=== PATIENT | female | born 1965 | race Caucasian/White ===

== ENCOUNTER → 2017-06-04 10:39 | Outpatient (CLI) | payer BC, OTHER, SELFPAY ==
--- NOTE | 2017-06-04 10:45 | MM_ITS ---
MM Dig screening mamm BI w/CAD CAD Screening COMPARISON: Digital mammograms 10/04/2014 and digital right mammogram 09/06/2015 INDICATION: There is no personal or family history of breast cancer TECHNIQUE: Standard CC and MLO images were obtained. R2 CAD reviewed. FINDINGS: Mild to moderate scattered fibroglandular densities are seen throughout both breasts and the findings are bilateral and symmetrical. There are few primarily benign-appearing microcalcifications subareolar region left breast. However there are couple additional microcalcifications at this site when compared to the previous study September 2014. Though they have primarily a benign appearance recommend patient return for spot compression magnification views for better evaluation. There are couple of additional benign appearing calcifications inner quadrant left breast. IMPRESSION: Fibrofatty parenchyma with possible change in microcalcifications left breast BI-RADS Category: 0 Need Additional Imaging Evaluaiton RECOMMENDED FOLLOW-UP: IMM - IMMEDIATE FOLLOW-UP RECOMMENDED (A letter has been sent to the patient regarding results of the study.)
== END ==
PROVIDERS: Family Provider Internal Medicine Adolescent Medicine; PCP Pediatrics; Visit Provider Pediatrics
DX: Z12.31 Encounter for screening mammogram for malignant neoplasm of breast (principal)
CPT/HCPCS: 77067

== ENCOUNTER → 2017-06-04 16:13 | Outpatient (CLI) | payer BC, OTHER, SELFPAY ==
--- NOTE | 2017-06-04 16:22 | XR_ITS ---
XR foot LT min 3V HISTORY: Foot pain ITS.REASON: WEIGHT BEARING FOR DR BEE ORDERING PHYSICIAN: Aure Bee DPM PATIENT AGE: 51 years COMPARISON: None FINDINGS: Weightbearing views are performed there is a fracture at the base of the second metatarsal with lucency at the base the second metatarsal and the distal aspect of the second cuneiform along with hypertrophic change and bony debris suspicious for developing Charcot joint. Lucency also noted base of the third metatarsal and third cuneiforms. Bony debris is present at the junction of the navicular and first cuneiforms dorsally. There is mild pes planus. IMPRESSION: Suspect developing Charcot joint at the second and third cuneiforms and metatarsals and at the navicular cuneiform joint. Fracture noted at the base of the second metatarsal with bony debris and lucencies at these areas.
--- NOTE | 2017-06-04 16:22 | XR_ITS ---
XR ankle LT min 3V HISTORY: Left ankle pain ITS.REASON: WEIGHT BEARING FOR DR BEE ORDERING PHYSICIAN: Aure Bee DPM PATIENT AGE: 51 years COMPARISON: None FINDINGS: Weightbearing views are performed No fracture or dislocation. No lytic or blastic change. There is normal mineralization.. The joint spaces are well-preserved. No significant degenerative/arthritic changes. No erosive changes evident. IMPRESSION: Negative ankle, no acute finding
--- NOTE | 2017-06-04 16:22 | XR_ITS ---
XR ankle RT min 3V HISTORY: Neuropathy, foot and ankle pain ITS.REASON: WEIGHT BEARING FOR DR BEE ORDERING PHYSICIAN: Aure Bee DPM PATIENT AGE: 51 years COMPARISON: None FINDINGS: Weightbearing views are performed No fracture or dislocation. No lytic or blastic change. There is normal mineralization.. The joint spaces are well-preserved. No significant degenerative/arthritic changes. No erosive changes evident. IMPRESSION: Negative ankle, no acute finding
--- NOTE | 2017-06-04 16:22 | XR_ITS ---
XR foot RT min 3V HISTORY: ] Pain ITS.REASON: WEIGHT BEARING FOR DR BEE ORDERING PHYSICIAN: Aure Bee DPM PATIENT AGE: 51 years COMPARISON: None FINDINGS: No fracture or dislocation. No lytic or blastic change. There is normal mineralization.. The joint spaces are well-preserved. No significant degenerative/arthritic changes. No erosive changes evident. IMPRESSION: Negative, no acute finding
== END ==
PROVIDERS: PCP Internal Medicine; Visit Provider Podiatrist
DX: M79.672 Pain in left foot (principal)
CPT/HCPCS: 73610; 73630

== ENCOUNTER → 2017-06-05 11:00 | Outpatient (CLI) | payer BC, OTHER, SELFPAY ==
--- NOTE | 2017-06-05 | US_ITS ---
US Arterial Ankle Brachial Ind INDICATION: Leg pain, bilateral rest pain with bilateral claudication. Left popliteal blockage. Previous smoker ORDERING PHYSICIAN: Aure Bee DPM PATIENT AGE: 51 years TECHNIQUE: Segmental pressures obtained of both right and left leg. These are compared to brachial blood pressure to yield index at each level sampled including summary GINGER. The data sheets from the procedure are available in PACS FINDINGS Rest study only performed today No prior studies available for comparison. Blood pressures reported are in millimeters mercury. RIGHT LEG GINGER = 0.9 Right TBI equals 0.9. Brachial BP: 133 Thigh BP: 148 Calf BP: 144 Ankle PT: 125 Ankle DP : 136 Digit =118 LEFT LEG GINGER = 1.1 Left TBI is 0.7 Brachial BPD: 133 Thigh BP: 151 Calf BP: 149 Ankle PT:144 Ankle DP: 126 Digit = 98 Pulses and waveforms: Normal IMPRESSION: The ABIs as reported above are within normal limits. Waveforms and pulses are also unremarkable. The right TBI is within normal limits. The left TBI is slightly low indicating mild small vessel disease
[2017-06-05 11:28] LABS: Basophils % 0.3 % (0.1-2.0); Eosinophils # 0.2 K/mm3 (0.0-0.4); Hematocrit 42.6 % (37.0-47.0); Hemoglobin 13.7 g/dL (12.2-16.2); Lymphocytes # 3.2 K/mm3 (0.7-4.5); Lymphocytes % 42.4 K/mm3 (10-50); Mean Corpuscular HGB Conc 32.3 g/dL (31.8-35.4); Mean Corpuscular Hemoglobin 29.6 pg (27.0-31.2); Mean Corpuscular Volume 91.6 fl (81-99); Monocytes # 0.5 K/mm3 (0.1-1.0); Monocytes % 5.9 % (1.7-9.3); Neutrophils # 3.7 K/mm3 (1.8-7.8); Neutrophils % 49.4 % (37.0-80.0); Platelet Count 248 K/mm3 (142-424); Red Blood Count 4.64 M/mm3 (4.20-5.40); Red Cell Distribution Width 13.7 % (11.5-17.5); White Blood Count 7.5 K/mm3 (4.8-10.8)
[2017-06-05 11:54] LABS: Activated Partial Thrombo Time 26.2 seconds (23.6-34.0); INR 0.93 (0.9-1.1)
--- NOTE | 2017-06-05 11:56 | XR_ITS ---
XR chest 2V HISTORY: ITS.REASON: ASTHMA ORDERING PHYSICIAN: Aure Bee DPM PATIENT AGE: 51 years COMPARISON: 04/23/2016 FINDINGS: The cardiomediastinal silhouette and pulmonary vascularity are within normal limits. The lungs are clear without infiltrates, suspicious nodules, or pleural effusions. No acute bony abnormalities. IMPRESSION: No change with no acute finding
[2017-06-05 13:09] LABS: Alanine Aminotransferase 23 U/L (12-78); Albumin Level 3.1 gm/dL (3.4-5.0); Albumin/Globulin Ratio 0.8 (1.1-1.8); Alkaline Phosphatase 91 U/L (46-116); Anion Gap 11.7 mEq/L (5-15); Aspartate Amino Transferase 35 U/L (15-37); Bilirubin,Total 0.4 mg/dL (0.2-1.0); Blood Urea Nitrogen 13 mg/dL (7-18); Calcium 8.6 mg/dL (8.5-10.1); Carbon Dioxide 29 mmol/L (21.0-32.0); Chloride 102 mmol/L (98-107); Creatinine,Serum 0.87 mg/dL (0.55-1.02); Estimated Glomerular Filt Rate 69 ml/min (>60); GFR (African American) 83 ML/MIN (>60); Globulin 3.8 gm/dl (1.3-3.2); Glucose 102 mg/dL (74-106); Potassium 4.7 mmoL/L (3.5-5.1); Sodium 138 mmol/L (136-145); Total Protein,Serum 6.9 gm/dL (6.4-8.2)
== END ==
PROVIDERS: PCP Pediatrics; Visit Provider Podiatrist
DX: M14.672 Charcot's joint, left ankle and foot (principal); M79.672 Pain in left foot; Z01.818 Encounter for other preprocedural examination
CPT/HCPCS: 36415; 71046; 80053; 85025; 85610; 85730; 93005; 93922

== ENCOUNTER → 2017-06-11 14:27 | Outpatient (CLI) | payer BC, OTHER, SELFPAY ==
--- NOTE | 2017-06-11 14:31 | MM_ITS ---
MM Dig mamm DX unilat LT CAD ORDERING PHYSICIAN : Evangelist Tabares PATIENT AGE: 51 years GENDER: Female COMPARISON: Previous mammograms: 20 INDICATION: Progression of calcifications including additional small calcifications TECHNIQUE: Magnification views CC and MLO with a full 90 degree view left breast included LEFT BREAST: Slight progression of the cluster calcifications at the central left breast. The more inferior calcifications in this grouping are dense most certainly benign; but but the distal new small calcifications superior calcifications in this grouping are less well delineated with slightly irregular with some small forms here, on detailed inspection of enlarged magnification views.. Overall suspect are most likely benign calcifications with estimated less than 3-5% chance of malignancy, but I would suggest offering biopsy due to the new small calcifications at its superior aspect... A reasonable alternative would be follow-up left mammogram in 6-8 months if patient prefers observation. Remainder the left breast appears stable and unremarkable. No additional findings. ------- IMPRESSION: Stereotactic biopsy suggested. However reasonable alternative option follow-up in 6 months since these are most likely benign calcification . Slight progression of a cluster of calcifications central left breast. Specifically note additional small calcifications with slight varied forms at superior aspect of this grouping. BI-RADS Category: 4 Suspicious Abnormality-Biopsy Considered Low suspicion calcification BI-RADS 4A category RECOMMENDED FOLLOW-UP: BIO - BIOPSY RECOMMENDED Suggest stereotactic biopsy but follow-up in 6 months is reasonable alternative for these most likely benign calcifications (A letter has been sent to the patient regarding results of the study.)
== END ==
PROVIDERS: Family Provider Internal Medicine Adolescent Medicine; PCP Pediatrics; Visit Provider Internal Medicine
DX: R92.8 Other abnormal and inconclusive findings on diagnostic imaging of breast (principal)
CPT/HCPCS: 77065

== ENCOUNTER 2017-06-12 06:07 | Day surgery (SDC) | payer BC, OTHER, SELFPAY ==
[2017-06-11 10:24] VITALS: BMI 32.4
[2017-06-12] VITALS (12 sets, daily range): BP systolic 132–167; BP diastolic 72–95; PULSE 88–92; RESP 16–18; TEMP 36.5–43; O2SAT 90–96
--- NOTE | 2017-06-12 | XR_ITS ---
XR ankle LT 2V HISTORY: Follow-up surgery ITS.REASON: EXTERNAL FIX ORDERING PHYSICIAN: Aure Bee DPM PATIENT AGE: 51 years COMPARISON: None Fluoroscopy time: 26 seconds FINDINGS: External fixator device has been placed with C-arm guidance. IMPRESSION: Interval placement of external fixator.
--- NOTE | 2017-06-12 06:54 | HMH.ANESCL ---
[facility] Anesthesia Checklist - Patient Identification Patient Identification: Arm Band, Verbal (Name & ) - Structural Data Admitted From: Home Planned Operative Procedure/s: external fixator Consent for Planned Operative Procedure(s) Verified: Yes Verified Documents: Surgical Consent, History and Physical - NPO Status Verified Time NPO: 00:00 - Chart Verification Results Verified: CBC, BMP, PT, PTT, INR, ECG - Additional verifications Patient : No Anesthesia Reactions: No Hx Blood Transfusions: No Blood Transfusion Reaction: No Cephalosporin Allergy: No Previous Colonoscopy: No - Cardiovascular Assessment Heart Sounds: S1 & S2 Pulse Strength: Baseline Pulse Rhythm: Regular Peripheral Edema: No - Airway Assessment C-Spine Mobility Assessed: No TMJ Mobility Assessed: No Dentition: Good Dentition - Neurological Assessment Level of Consciousness: Awake, Alert, Appropriate Hx Seizures: No Numbness or tingling in extremities: No - Anesthesia Plan Anesthesia Risk discussed: Yes ASA Class: III Anesthesia Type: General [facility] Anesthesia HX I have reviewed the patient's past medical history: Yes Medical History: Reports:: Asthma, Diabetes Mellitus Type 2, Gastroesophageal Reflux Disease(GERD), Hyperlipidemia, Hypertension, Migraine Denies:: Cancer, Diabetes Mellitus Type 1, Internal Pacemaker, MRSA, Myocardial Infarction Laterality Cases: Bilateral: Carpal Tunnel Release, Other Other Surgeries: Yes: , Hysterectomy-Total, Other (gallbladder, eye surgery). No: Pacemaker Amputation: No Fractures: Yes *Family Hx:: Cancer, Diabetes, Heart Attack, Hypertension, Asthma
--- NOTE | 2017-06-12 06:57 | P.PN_ITS ---
[facility] Anesthesia Checklist - Patient Identification Patient Identification: Arm Band, Verbal (Name & ) - Structural Data Admitted From: Home Planned Operative Procedure/s: external fixator Consent for Planned Operative Procedure(s) Verified: Yes Verified Documents: Surgical Consent, History and Physical - NPO Status Verified Time NPO: 00:00 - Chart Verification Results Verified: CBC, BMP, PT, PTT, INR, ECG - Additional verifications Patient : No Anesthesia Reactions: No Hx Blood Transfusions: No Blood Transfusion Reaction: No Cephalosporin Allergy: No Previous Colonoscopy: No - Cardiovascular Assessment Heart Sounds: S1 & S2 Pulse Strength: Baseline Pulse Rhythm: Regular Peripheral Edema: No - Airway Assessment C-Spine Mobility Assessed: No TMJ Mobility Assessed: No Dentition: Good Dentition - Neurological Assessment Level of Consciousness: Awake, Alert, Appropriate Hx Seizures: No Numbness or tingling in extremities: No - Anesthesia Plan Anesthesia Risk discussed: Yes ASA Class: III Anesthesia Type: General [facility] Anesthesia HX I have reviewed the patient's past medical history: Yes Medical History: Reports:: Asthma, Diabetes Mellitus Type 2, Gastroesophageal Reflux Disease(GERD), Hyperlipidemia, Hypertension, Migraine Denies:: Cancer, Diabetes Mellitus Type 1, Internal Pacemaker, MRSA, Myocardial Infarction Laterality Cases: Bilateral: Carpal Tunnel Release, Other Other Surgeries: Yes: , Hysterectomy-Total, Other (gallbladder, eye surgery). No: Pacemaker Amputation: No Fractures: Yes *Family Hx:: Cancer, Diabetes, Heart Attack, Hypertension, Asthma
[2017-06-12 07:03] LABS: POC Glucose,Bedside 86 mg/dL (70-110)
--- NOTE | 2017-06-12 10:38 | XR_ITS ---
XR ankle LT min 3V HISTORY: Postop Charcot foot ITS.REASON: post-op ORDERING PHYSICIAN: Aure Bee DPM PATIENT AGE: 51 years COMPARISON: 06/04/2017 FINDINGS: Lateral fixator has been placed across seen stabilizing wires at the junction of the mid-distal third of the tibia and fibula and the distal aspect of the tibia as well as the mid foot region. There is good alignment. IMPRESSION: Interval placement of external fixator
--- NOTE | 2017-06-12 10:38 | P.PN_ITS ---
[facility] Anesthesia Record Part I Intake, IV Amount: 1,500 Estimated blood loss (mL): 10 Urine output (mL): 0 Blood Pressure: 160/86 SaO2: 95 Pulse Rate: 92 Respiratory Rate: 16 Temperature: 98.2 F Patient is:: Drowsy, Stable Stable to PACU at:: 10:35
--- NOTE | 2017-06-12 10:38 | XR_ITS ---
XR foot LT min 3V HISTORY: Follow-up surgery, follow-up external fixator placement ITS.REASON: post-op ORDERING PHYSICIAN: Aure Bee DPM PATIENT AGE: 51 years COMPARISON: 06/04/2017 FINDINGS: There is been interval placement of an external fixator with crossing wires are within the metatarsals and at the distal tibia stabilizing the Charcot joint at the first and second metatarsal cuneiform junction. There does appear to be good alignment. IMPRESSION: Interval placement of external fixator in good position
--- NOTE | 2017-06-12 10:38 | HMH.ANESII ---
[facility] Anesthesia Record Part II Discharge Time: 11:05 Destination: [facility] PACU nurse assessment reviewed?: Yes Patient Condition:: Good Anesthesia Complications:: None
--- NOTE | 2017-06-12 10:39 | P.PN_ITS ---
[facility] Anesthesia Record Part II Discharge Time: 11:05 Destination: [facility] PACU nurse assessment reviewed?: Yes Patient Condition:: Good Anesthesia Complications:: None
--- NOTE | 2017-06-12 10:52 | PC.NURSE ---
[id number] post operatively
--- NOTE | 2017-06-12 11:00 | HMH.OPNOTE ---
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 Guallpa is a pleasant 51-year-old diabetic female who presents today for evaluation of left foot pain and swelling. She notices swelling about 5 weeks ago. Patient states that she was concerned because she usually has no feeling to the feet. After several days of swelling she saw her PCP Dr. Tabares. X-rays were taken of the left foot on 05/09/17 which showed lateral subluxation of the second metatarsal base with respect to the medial cuneiform. There is approximately 3 mm of subluxation. A Lisfranc injury is not excluded. There is bony destruction and fragmentation of the second metatarsal base and involving multiple tarsal metatarsal joints.These findings could be posttraumatic but a neuropathic or Charcot joint cannot be excluded. The patient has been fully weightbearing in a regular shoe. She has not been immobilized or nonweightbearing at all. 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 Patient does not have diabetic shoes. She does report history of tingling burning and numbness to both feet. She denies a history of open wounds and reports no prior amputations. Last HA1c 12.0 X-rays of both feet and ankle taken 06/04/17 and compared with the x-rays of the left foot brought from the patient from 05/09/17. X-rays taken today show normal ankle joints bilaterally with no fractures or significant soft tissue swelling. X-rays of the right foot show no significant deformities. X-ray of the left foot shows fracturing of the base of the second metatarsal with lucency at the base of the second metatarsal and second cuneiform along with hypertrophic changes and bony debris suspicious for Charcot joint. Since he also noted at the base of the third metatarsal and third cuneiform. Bony debris is present at the junction of the navicular and first cuneiform dorsally. There is pes planus also noted. Left foot Charcot Neuroarthropathy: I had a long discussion with the patient about the etiology and treatment of Charcot foot. I explained how her diabetes and peripheral neuropathy have contributed to this. We also had a long discussion about her hemoglobin A1c of 12 and her poor sugar control. Her previous A1c was 9.0. I explained that it is imperative that she gets her sugar back down, with a goal of 7.0. Patient does not currently smoke. She does have visual changes. We discussed the progression of Charcot and how that puts her at high risk for medial arch collapse, foot deformities, ulceration, infection leading to amputation, loss of digits, part of the foot or even the leg. She verbalizes understanding. The patient and I had a long discussion about her treatment course. We discussed the conservative treatment option of strict nonweightbearing to the left lower extremity and in a cast. The nonweightbearing may be 8-12 weeks. The patient admits that she cannot be compliant with this treatment plan and that she would put weight on it. We did discuss surgical intervention with the application of an external fixator. I told the patient that I would not recommend Charcot reconstruction at this point because the Lisfranc region is unstable. I can palpate and when moving the joints, can hear the bones crunching. When she is weightbearing the bones are shifting. I explained that internal fixation at this point is not a good idea because it could still result in further collapse of the deformity. My recommendation would be strict nonweightbearing but the patient cannot be compliant with this. She has agreed to be nonweightbearing for s
--- NOTE | 2017-06-12 11:04 | P.OP_ITS ---
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 Guallpa is a pleasant 51-year-old diabetic female who presents today for evaluation of left foot pain and swelling. She notices swelling about 5 weeks ago. Patient states that she was concerned because she usually has no feeling to the feet. After several days of swelling she saw her PCP Dr. Tabares. X-rays were taken of the left foot on 05/09/17 which showed lateral subluxation of the second metatarsal base with respect to the medial cuneiform. There is approximately 3 mm of subluxation. A Lisfranc injury is not excluded. There is bony destruction and fragmentation of the second metatarsal base and involving multiple tarsal metatarsal joints.These findings could be posttraumatic but a neuropathic or Charcot joint cannot be excluded. The patient has been fully weightbearing in a regular shoe. She has not been immobilized or nonweightbearing at all. 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 She does report history of tingling burning and numbness to both feet. She denies a history of open wounds and reports no prior amputations. Last HA1c 12.0 X-rays of both feet and ankle taken 06/04/17 and compared with the x-rays of the left foot brought from the patient from 05/09/17. X-rays taken today show normal ankle joints bilaterally with no fractures or significant soft tissue swelling. X-rays of the right foot show no significant deformities. X-ray of the left foot shows fracturing of the base of the second metatarsal with lucency at the base of the second metatarsal and second cuneiform along with hypertrophic changes and bony debris suspicious for Charcot joint. Since he also noted at the base of the third metatarsal and third cuneiform. Bony debris is present at the junction of the navicular and first cuneiform dorsally. There is pes planus also noted. Left foot Charcot Neuroarthropathy: I had a long discussion with the patient about the etiology and treatment of Charcot foot. I explained how her diabetes and peripheral neuropathy have contributed to this. We also had a long discussion about her hemoglobin A1c of 12 and her poor sugar control. Her previous A1c was 9.0. I explained that it is imperative that she gets her sugar back down, with a goal of 7.0. Patient does not currently smoke. She does have visual changes. We discussed the progression of Charcot and how that puts her at high risk for medial arch collapse, foot deformities, ulceration, infection leading to amputation, loss of digits, part of the foot or even the leg. She verbalizes understanding. The patient and I had a long discussion about her treatment course. We discussed the conservative treatment option of strict nonweightbearing to the left lower extremity and in a cast. The nonweightbearing may be 8-12 weeks. The patient admits that she cannot be compliant with this treatment plan and that she would put weight on it. We did discuss surgical intervention with the application of an external fixator. I told the patient that I would not recommend Charcot reconstruction at this point because the Lisfranc region is unstable. I can palpate and when moving the joints, can hear the bones crunching. When she is weightbearing the bones are shifting. I explained that internal fixation at th
[2017-06-20 15:02] LABS: POC Glucose,Bedside 124 mg/dL (70-110)
== END 2017-06-12 12:03 | disposition home or self-care (01) ==
LOC: OR 06:08
PROVIDERS: Family Provider Internal Medicine Adolescent Medicine; PCP Pediatrics; Visit Provider Podiatrist
PROC: (CPT 28605; principal; 2017-06-12 07:30)
DX: E11.610 Type 2 diabetes mellitus with diabetic neuropathic arthropathy (principal); S93.325A Dislocation of tarsometatarsal joint of left foot, initial encounter
CPT/HCPCS: 28605; 20692; 71046; 73600; 73610; 73630; 76000; 82962; 93005; 96374; C1713; J2405

== ENCOUNTER → 2017-06-25 14:38 | Outpatient (CLI) | payer BC, OTHER, SELFPAY ==
--- NOTE | 2017-06-25 14:46 | XR_ITS ---
XR foot LT min 3V HISTORY: Charcot foot, follow-up external fixator placement ORDERING PHYSICIAN: Aure Bee DPM PATIENT AGE: 51 years COMPARISON: 06/12/2017 FINDINGS: External fixator remains in place obscuring much of the foot and ankle with crossing wires which are within the metatarsals and at the distal tibia stabilizing the Charcot joint at the first and second metatarsal cuneiform junction. There does appear to be good alignment.. Postsurgical change with irregularity of the dorsal aspect of the cuneiforms noted as before. IMPRESSION: No change status post placement of external fixator
--- NOTE | 2017-06-25 14:46 | XR_ITS ---
XR ankle LT min 3V HISTORY: Follow-up external fixator placement ORDERING PHYSICIAN: Aure Bee DPM PATIENT AGE: 51 years COMPARISON: 07/10/2017 FINDINGS: External fixator which encircles the mid distal tibia and foot with multiple loops neck the by rods with pins in the distal tibia and foot once again noted unchanged with good alignment. IMPRESSION: No change external fixator in place
== END ==
PROVIDERS: Visit Provider Podiatrist
DX: Z98.890 Other specified postprocedural states (principal)
CPT/HCPCS: 73610; 73630

== ENCOUNTER 2017-06-30 14:11 | Emergency (ER) | payer BC, OTHER, SELFPAY ==
[2017-06-30 14:25] VITALS: BP 154/98; PULSE 94; RESP 18; TEMP 36.8; O2SAT 97; BMI 32.4
--- NOTE | 2017-06-30 14:42 | [facility].EDGENADL ---
ED Disposition Clinical Impression: Charcot gait, Charcot ankle, Postop check Disposition: Home, Self-Care Condition on Discharge: Fair Additional Instructions: 1- rest. 2- elevate. 3- continue abx. 4- temp and neurovascular check bid. 5- follow up with lab results with Dr Davenport in AM, need to discuss if more testing needed to exclude osteomyelitis. . 6- return if needed for any new sx. Referrals: Juan Tabares [Primary Care Provider] - - Critical Care Critical Care Time: No Attestation: On 06/30/17, the high probability of a clinically significant, sudden or life threatening deterioration of the following system(s) required my full and direct attention, intervention and personal management. The time I documented below is in addition to time spent performing reported procedures but includes the following listed in this critical care notation. Medical Decision Making Vital Signs: 06/30/17 14:25 Temperature 98.3 F Temperature Source Oral Pulse Rate [Right Brachial] 94 H Respiratory Rate 18 Blood Pressure [Right Arm] 154/98 Blood Pressure Mean [Right Arm] 116 Blood Pressure Source [Right Arm] Automatic Cuff Blood Pressure Position [Right Arm] Sitting 02 Sat by Pulse Oximetry 97 Oxygen Delivery Method Room Air - Lab Data Lab results reviewed: Yes: I reviewed the patient's lab results. Lab Results 06/30/17 15:00: WBC 7.4, RBC 4.04 L, Hgb 12.0 L, Hct 37.3, MCV 92.4, MCH 29.7, MCHC 32.2, RDW 12.7, Plt Count 246, MPV 9.0, Neut % (Auto) 51.3, Lymph % (Auto) 40.0, [place] % (Auto) 4.5, Eos % (Auto) 3.9, Baso % (Auto) 0.3, Neut # (Auto) 3.8, Lymph # (Auto) 3.0, [place] # (Auto) 0.3, Eos # (Auto) 0.3, Baso # (Auto) 0.0, ESR 64 H 06/30/17 15:00: Sodium 136, Potassium 4.1, Chloride 103, Carbon Dioxide 26, Anion Gap 11.1, BUN 16, Creatinine 1.09 H, Estimated Creat Clear 86, Estimated GFR 53 L, Est GFR ( Amer) 64, Glucose 101, C-Reactive Protein 5.1 H Result diagrams: 06/30/17 15:00 06/30/17 15:00 - Panchito Inquiry Pt receiving controlled substance: No Panchito was queried for this patient: No Medical Decision Making Narrative: The patient remained stable with no additional pain or fever. As described in HPI her pain is decreasing since she started on Bactrim. the patient did have normal labs except for sed rate of 61 and a CRP of 5.1 I checked for old levels that was not available in the system. Attempted to call Dr. 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 I discussed these results with the patient and I informed her at this point it is meant for follow-up purposes and she will need follow-up with Dr. Davenport and repeat as needed for improvement. General Adult HPI - General Chief complaint: PAIN Stated complaint: Pins infected in Leg - Calf to Toes Mode of Arrival: Wheelchair Limitations: No Limitations Description of Symptoms (Recalled from ER Triage Doc. by RN): ADVISES SHE HAD SURGERY ON THE FOR MULTIPLE BROKEN BONES IN THE LT FOOT. SURGERY PERFORMED BY DR DAVENPORT. PT STATES SHE SAW DR DAVENPORT ON OR SAT OF LAST WEEK D/T INCREASED PAIN AT ONE OF THE PIN SITES. PT IS CONCERNED ABOUT POSSIBLE INFECTION OF THE SITE - History of Present Illness HPI narrative: 51 years old white female with long-standing history of diabetes mellitus and complications including Charcot foot. She underwent foot surgery by Dr. Davenport on June 12, 2017. Was last seen by the dielectric tester on June 27 where she had one out of 16 pin seem to be infected, she did have pain that was rated 8/10, she did have an x ray by Dr davenport and started on Bactrim. Today her pain is les 3/10 but her Over The Road Driver looked at the pins and he noted 2 more areas of redness (3/16 pins) and she attempted to call her dielectric tester with no response so she was brought to the ED. she denies having fever or chills nausea vomiting red streaks along the leg. She is in no cardiopulmonary distress, sitting in the bed comfortably using her Phone. Onset (ago): darren
--- NOTE | 2017-06-30 14:45 | ED_ITS ---
ED Disposition Clinical Impression: Charcot gait, Charcot ankle, Postop check Disposition: Home, Self-Care Condition on Discharge: Fair Additional Instructions: 1- rest. 2- elevate. 3- continue abx. 4- temp and neurovascular check bid. 5- follow up with lab results with Dr Davenport in AM, need to discuss if more testing needed to exclude osteomyelitis. . 6- return if needed for any new sx. Referrals: Juan Tabares [Primary Care Provider] - - Critical Care Critical Care Time: No Attestation: On 06/30/17, the high probability of a clinically significant, sudden or life threatening deterioration of the following system(s) required my full and direct attention, intervention and personal management. The time I documented below is in addition to time spent performing reported procedures but includes the following listed in this critical care notation. Medical Decision Making Vital Signs: 06/30/17 14:25 Temperature 98.3 F Temperature Source Oral Pulse Rate [Right Brachial] 94 H Respiratory Rate 18 Blood Pressure [Right Arm] 154/98 Blood Pressure Mean [Right Arm] 116 Blood Pressure Source [Right Arm] Automatic Cuff Blood Pressure Position [Right Arm] Sitting 02 Sat by Pulse Oximetry 97 Oxygen Delivery Method Room Air - Lab Data Lab results reviewed: Yes: I reviewed the patient's lab results. Lab Results 06/30/17 15:00: WBC 7.4, RBC 4.04 L, Hgb 12.0 L, Hct 37.3, MCV 92.4, MCH 29.7, MCHC 32.2, RDW 12.7, Plt Count 246, MPV 9.0, Neut % (Auto) 51.3, Lymph % (Auto) 40.0, [place] % (Auto) 4.5, Eos % (Auto) 3.9, Baso % (Auto) 0.3, Neut # (Auto) 3.8 , Lymph # (Auto) 3.0, [place] # (Auto) 0.3, Eos # (Auto) 0.3, Baso # (Auto) 0.0, ESR 64 H 06/30/17 15:00: Sodium 136, Potassium 4.1, Chloride 103, Carbon Dioxide 26, Anion Gap 11.1, BUN 16, Creatinine 1.09 H, Estimated Creat Clear 86, Estimated GFR 53 L, Est GFR ( Amer) 64, Glucose 101, C-Reactive Protein 5.1 H Result diagrams: 06/30/17 15:00 06/30/17 15:00 - Panchito Inquiry Pt receiving controlled substance: No Panchito was queried for this patient: No Medical Decision Making Narrative: The patient remained stable with no additional pain or fever. As described in HPI her pain is decreasing since she started on Bactrim. the patient did have normal labs except for sed rate of 61 and a CRP of 5.1 I checked for old levels that was not available in the system. Attempted to call Dr. 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 I discussed these results with the patient and I informed her at this point it is meant for follow-up purposes and she will need follow-up with Dr. Davenport and repeat as needed for improvement. General Adult HPI - General Chief complaint: PAIN Stated complaint: Pins infected in Leg - Calf to Toes Mode of Arrival: Wheelchair Limitations: No Limitations Description of Symptoms (Recalled from ER Triage Doc. by RN): ADVISES SHE HAD SURGERY ON THE FOR MULTIPLE BROKEN BONES IN THE LT FOOT. SURGERY PERFORMED BY DR DAVENPORT. PT STATES SHE SAW DR DAVENPORT ON OR SAT OF LAST WEEK D/T INCREASED PAIN AT ONE OF THE PIN SITES. PT IS CONCERNED ABOUT POSSIBLE INFECTION OF THE SITE - History of Present Illness HPI narrative: 51 years old white female with long-standing history of diabetes mellitus and complications including Charcot foot. She underwent foot surgery by Dr. Davenport on June 12, 2017. Was last seen by the medical art therapist on June 27 where she had one out of
[2017-06-30 15:13] LABS: Basophils % 0.3 % (0.1-2.0); Eosinophils # 0.3 K/mm3 (0.0-0.4); Eosinophils % 3.9 % (0.1-12.0); Hematocrit 37.3 % (37.0-47.0); Mean Corpuscular HGB Conc 32.2 g/dL (31.8-35.4); Mean Corpuscular Hemoglobin 29.7 pg (27.0-31.2); Mean Corpuscular Volume 92.4 fl (81-99); Monocytes # 0.3 K/mm3 (0.1-1.0); Monocytes % 4.5 % (1.7-9.3); Neutrophils # 3.8 K/mm3 (1.8-7.8); Neutrophils % 51.3 % (37.0-80.0); Platelet Count 246 K/mm3 (142-424); Red Blood Count 4.04 M/mm3 (4.20-5.40); Red Cell Distribution Width 12.7 % (11.5-17.5); White Blood Count 7.4 K/mm3 (4.8-10.8)
[2017-06-30 15:31] LABS: Anion Gap 11.1 mEq/L (5-15); Blood Urea Nitrogen 16 mg/dL (7-18); C-Reactive Protein 5.1 mg/L (0.0-0.9); Carbon Dioxide 26 mmol/L (21.0-32.0); Chloride 103 mmol/L (98-107); Creatinine Clearance Estimated 86 mL/min (0-300); Creatinine,Serum 1.09 mg/dL (0.55-1.02); Estimated Glomerular Filt Rate 53 ml/min (>60); GFR (African American) 64 ML/MIN (>60); Glucose 101 mg/dL (74-106); Potassium 4.1 mmoL/L (3.5-5.1); Sodium 136 mmol/L (136-145)
[2017-06-30 16:00] LABS: Erythrocyte Sedimentation Rate 64 mm/hr (0-20)
[2017-06-30 17:19] VITALS: BP 134/92; PULSE 88; RESP 16; TEMP 36.6; O2SAT 97
== END 2017-06-30 17:21 | disposition home or self-care (01) ==
PROVIDERS: Emergency Provider Emergency Medicine; Family Provider Internal Medicine Adolescent Medicine; PCP Pediatrics
DX: G89.18 Other acute postprocedural pain (principal); M14.672 Charcot's joint, left ankle and foot; E10.9 Type 1 diabetes mellitus without complications; Z79.4 Long term (current) use of insulin; K21.9 Gastro-esophageal reflux disease without esophagitis; E78.5 Hyperlipidemia, unspecified; I10 Essential (primary) hypertension; Z87.891 Personal history of nicotine dependence; Z88.6 Allergy status to analgesic agent; Z88.8 Allergy status to other drugs, medicaments and biological substances
CPT/HCPCS: 36415; 80048; 85025; 85651; 86140; 99281

== ENCOUNTER → 2017-07-02 16:00 | Outpatient (REF) | payer BC, OTHER, SELFPAY | LOC: LAB 16:00 | PROVIDERS: Visit Provider Podiatrist | DX: T84.60XA Infection and inflammatory reaction due to internal fixation device of unspecified site, initial encounter (principal) | CPT/HCPCS: 87070; 87205 ==

== ENCOUNTER → 2017-07-16 13:37 | Outpatient (CLI) | payer BC, OTHER, SELFPAY ==
[2017-07-16 14:38] LABS: Hemoglobin A1C 7.7 % (0.0-7.0)
[2017-07-16 14:43] LABS: C-Reactive Protein 0.3 mg/L (0.0-0.9)
[2017-07-16 14:56] LABS: Erythrocyte Sedimentation Rate 29 mm/hr (0-20)
[2017-07-17 15:48] LABS: Vitamin D 25 Hydroxy 31.7 ng/mL (30.0-100.0)
== END ==
PROVIDERS: PCP Podiatrist; Visit Provider Podiatrist
DX: Z01.818 Encounter for other preprocedural examination (principal); E11.610 Type 2 diabetes mellitus with diabetic neuropathic arthropathy
CPT/HCPCS: 36415; 82652; 83036; 85651; 86140

== ENCOUNTER → 2017-07-30 08:58 | Outpatient (CLI) | payer BC, OTHER, SELFPAY ==
--- NOTE | 2017-07-30 08:58 | XR_ITS ---
Left foot Weightbearing Foot 3 Views HISTORY: Follow-up surgery ORDERING PHYSICIAN: Aure Bee DPM PATIENT AGE: 51 years COMPARISON: 07/17/2017 FINDINGS: The catheter is been removed. Weightbearing views are performed. A medial bone plate with multiple screws once again noted along the proximal aspect of the first metatarsal, medial cuneiform, navicular, and distal talus. There remains a long screw extending through the first metatarsal into the navicular and distal talus. A long screw is also noted within the fourth metatarsal into the cuboid. Tracks are present in the third and second metatarsals from previous fixation device. IMPRESSION: Overall no change with good alignment and extensive postsurgical changes of the foot as described above.
== END ==
PROVIDERS: Visit Provider Podiatrist
DX: Z98.890 Other specified postprocedural states (principal); E11.610 Type 2 diabetes mellitus with diabetic neuropathic arthropathy
CPT/HCPCS: 73630

== ENCOUNTER → 2017-08-13 11:32 | Outpatient (CLI) | payer BC, OTHER, SELFPAY ==
--- NOTE | 2017-08-13 11:33 | XR_ITS ---
XR foot wt bearing LT 3V HISTORY: Follow-up fusion ORDERING PHYSICIAN: Aure Bee DPM PATIENT AGE: 51 years COMPARISON: 07/30/2017 FINDINGS: Weightbearing views are performed. A medial bone plate with multiple screws once again noted along the proximal aspect of the first metatarsal, medial cuneiform, navicular, and distal talus. There remains a long screw extending through the first metatarsal into the navicular and distal talus. A long screw is also noted within the fourth metatarsal into the cuboid. Tracks are present in the third and second metatarsals from previous fixation device. IMPRESSION: Overall no change with good alignment and extensive postsurgical changes of the foot as described above.
== END ==
PROVIDERS: Visit Provider Podiatrist
DX: Z98.890 Other specified postprocedural states (principal)
CPT/HCPCS: 73630

== ENCOUNTER 2017-08-18 21:45 | Inpatient (IN) ==
[2017-08-18 22:09] LABS: Microscopic, Urine URINE MICROSCOPIC (MICROSCOPIC)
[2017-08-18 22:11] LABS: Appearance,Urine CLEAR (Clear); Bilirubin,Urine Negative (Negative); Blood, Urine 1+ (Negative); Color,Urine YELLOW (Yellow); Glucose,Urine (UA) 3+ (Negative); Ketones,Urine Negative (Negative); Leukocyte Esterase,Urine Negative (Negative); PH,Urine 6.5 (5.0-8.5); Protein,Urine 1+ (Negative); Specific Gravity, Urine 1.015 (1.005-1.030); Urobilinogen,Urine 0.2 EU/dl (0.2)
[2017-08-18 22:15] LABS: Basophils % 0.4 % (0.1-2.0); Eosinophils # 0.2 K/mm3 (0.0-0.4); Eosinophils % 2.7 % (0.1-12.0); Hematocrit 39.2 % (37.0-47.0); Hemoglobin 12.8 g/dL (12.2-16.2); Lymphocytes % 27.8 K/mm3 (10-50); Mean Corpuscular HGB Conc 32.8 g/dL (31.8-35.4); Mean Corpuscular Hemoglobin 30.2 pg (27.0-31.2); Mean Corpuscular Volume 91.9 fl (81-99); Monocytes # 0.5 K/mm3 (0.1-1.0); Monocytes % 6.4 % (1.7-9.3); Neutrophils # 4.4 K/mm3 (1.8-7.8); Neutrophils % 62.7 % (37.0-80.0); Platelet Count 184 K/mm3 (142-424); Red Blood Count 4.26 M/mm3 (4.20-5.40); Red Cell Distribution Width 13.3 % (11.5-17.5); White Blood Count 7.1 K/mm3 (4.8-10.8)
[2017-08-18 22:29] LABS: Albumin Level 2.9 gm/dL (3.4-5.0); Albumin/Globulin Ratio 0.7 (1.1-1.8); Anion Gap 13.4 mEq/L (5-15); Bilirubin,Total 0.3 mg/dL (0.2-1.0); Calcium 8.4 mg/dL (8.5-10.1); Globulin 4.4 gm/dl (1.3-3.2); Potassium 4.4 mmoL/L (3.5-5.1); Total Protein,Serum 7.3 gm/dL (6.4-8.2)
[2017-08-18 22:32] LABS: Strep Scrn Group A (Rapid) Negative (Negative)
--- NOTE | 2017-08-18 22:36 | Emergency Department Note ---
ED Disposition Clinical Impression: IDDM (insulin dependent diabetes mellitus) Community acquired pneumonia Qualifiers: Laterality: left Lung location: upper lobe of lung Qualified Code(s): J18.1 - Lobar pneumonia, unspecified organism Disposition: Admitted as Observation Condition on Discharge: Good - Critical Care Critical Care Time: No Attestation: On 08/18/17, the high probability of a clinically significant, sudden or life threatening deterioration of the following system(s) required my full and direct attention, intervention and personal management. The time I documented below is in addition to time spent performing reported procedures but includes the following listed in this critical care notation. Medical Decision Making - Medical Records Medical records reviewed: Yes: I reviewed the patient's medical records. - Panchito Inquiry Pt receiving controlled substance: No Vital Signs: 08/18/17 21:55 Temperature 99.6 F Temperature Source Oral Pulse Rate [Right Radial] 105 H Respiratory Rate 20 Blood Pressure [Right Arm] 162/74 Blood Pressure Mean [Right Arm] 103 02 Sat by Pulse Oximetry 97 Oxygen Delivery Method Room Air - Lab Data Lab results reviewed: Yes: I reviewed the patient's lab results. Lab Results 08/18/17 21:50: Urine Color Yellow, Urine Appearance Clear, Urine pH 6.5, Ur Specific [place] 1.015, Urine Protein 1+, Urine Glucose (UA) 3+, Urine Ketones Negative, Urine Blood 1+, Urine Nitrate Negative, Urine Bilirubin Negative, Urine Urobilinogen 0.2, Ur Leukocyte Esterase Negative, Urine RBC 5-10, Ur Squamous Epith Cells 10-20 08/18/17 22:10: WBC 7.1, RBC 4.26, Hgb 12.8, Hct 39.2, MCV 91.9, MCH 30.2, MCHC 32.8, RDW 13.3, Plt Count 184, MPV 9.0, Neut % (Auto) 62.7, Lymph % (Auto) 27.8 , [place] % (Auto) 6.4, Eos % (Auto) 2.7, Baso % (Auto) 0.4, Neut # (Auto) 4.4, Lymph # (Auto) 2.0, [place] # (Auto) 0.5, Eos # (Auto) 0.2, Baso # (Auto) 0.0 08/18/17 22:10: Sodium 133 L, Potassium 4.4, Chloride 98, Carbon Dioxide 26, Anion Gap 13.4, BUN 16, Creatinine 1.22 H, Estimated Creat Clear 79, Estimated GFR 47 L, Est GFR ( Amer) 56 L, Glucose 320 H, Calcium 8.4 L, Total Bilirubin 0.3, AST 14 L, ALT 10 L, Alkaline Phosphatase 102, Total Protein 7.3, Albumin 2.9 L, Globulin 4.4 H, Albumin/Globulin Ratio 0.7 L 08/18/17 22:10: Influenza Type A Ag Negative, Influenza Type B Ag Negative, Group A Strep Rapid Negative 08/18/17 22:45: Lactic Acid 2.3 H Result diagrams: 08/18/17 22:10 08/18/17 22:10 Orders (Tests/Meds): ED MEDICATIONS Generic Name Dose Route Start Last Admin Trade Name Freq PRN Reason Stop Dose Admin Azithromycin 500 mg/ Sodium 250 mls @ 250 mls/hr 08/18/17 23:45 Chloride IV 09/01/17 23:44 Q24H DESTINY Protocol Ceftriaxone Sodium 1 gm/ 50 mls @ 100 mls/hr 08/18/17 23:45 08/18/17 23:49 Sodium Chloride IV 09/01/17 23:44 100 mls/hr Q24H DESTINY Administration Protocol Discontinued Medications Generic Name Dose Route Start Last Admin Trade Name Freq PRN Reason Stop Dose Admin Lactated Ringer's 1,000 mls @ 999 mls/hr 08/18/17 22:45 08/18/17 22:45 Lactated Ringer's 1000 Ml Bag IV 08/18/17 23:45 999 mls/hr .Q1H1M DESTINY Administration ORDERS Category Date Time Status XR chest 2V Stat Exams 08/18/17 22:00 Taken Urinalysis and Microscopic Stat Lab 08/18/17 23:51 Ordered Blood Culture Stat Micro 08/18/17 23:51 Ordered Strep Screen Confirmation Stat Micro 08/18/17 22:10 Received - Radiology Data #1 Image(s): Chest Image Reviewed: Yes I reviewed the patient's radiology image Preliminary Findings: Abnormal (lt cap) - Physician Consults Physician Consulted: malia Reason -: Admission Fever HPI - General Chief Complaint: Fever Stated Complaint: fever Time Seen by Provider: 08/18/17 22:34 Mode of Arrival: Wheelchair Source of Information: Patient, Spouse, Medical Record Limitations: Physical Limitations Description of Symptoms (Recalled from ER Triage Doc. by RN): PT STATES SHE BEGAN RUNNING A FEVER AND HAVING CHILLS/BODY ACHES AT APPROX 1600 TODAY. PT STATES SHE HAD LEFT FOOT SURGERY ON 07/17/17. PT DENIES ANY PAIN/SYMPTOMS/ SIGNS INFECTION AT SITE. PT ALSO C/O DRY COUGH. - History of Present Illness HPI Narrative: fever with chills over the last day with fnps cough - no rash complaint: fever, malaise Onset (ago): day(s) Context: recent procedure Associated symptoms: chills, myalgias, cough Relieving factors: nothing - Related Data Home Medications Medication Instructions Recorded Confirmed albuterol sulfate HFA 90 1 puff INHALATION DAILY PRN 17 06/04/17 08/18/17 mcg/actuation aerosol inhaler Days #18 alogliptin 12.5 mg tablet 12.5 mg PO DAILY 30 Days #30 06/04/17 08/18/17 amitriptyline 25 mg tablet 25 mg PO DAILY 30 Days #30 06/04/17 08/18/17 blood sugar diagnostic strips See Dose Instructions .ROUTE 06/04/17 08/18/17 .MEDSUPPLY 25 Days #50 each blood-glucose meter kit See Dose Instructions .ROUTE 06/04/17 08/18/17 .MEDSUPPLY 1 Days #1 each brimonidine-timolol 0.2 %-0.5 % 1 drp OPHTHALMIC BID 30 Days #5 06/04/17 eye drops dulaglutide 1.5 mg/0.5 mL 0.5 % SUB-Q WEEKLY 28 Days #2 06/04/17 08/18/17 subcutaneous pen injector escitalopram 10 mg tablet 10 mg PO DAILY 30 Days #30 06/04/17 08/18/17 estradiol 2 mg tablet 2 mg PO DAILY 30 Days #30 06/04/17 08/18/17 fluticasone 200 mcg-vilanterol 25 1 puff INHALATION DAILY 30 Days #60 06/04/17 08/18/17 mcg/dose powder for inhalation fluticasone 50 mcg/actuation nasal 2 spry INTRANASAL DAILY 30 Days #16 06/04/17 08/18/17 spray,suspension insulin aspar prot-insulin aspart 45 units SUB-Q BID 16 Days #15 06/04/17 100 unit/mL (70-30) subcutaneous pen lancets 28 gauge See Dose Instructions .ROUTE 06/04/17 08/18/17 .MEDSUPPLY 30 Days #100 each metformin ER 500 mg 500 mg PO BID 30 Days #60 06/04/17 08/18/17 tablet,extended release 24 hr montelukast 10 mg tablet 10 mg PO DAILY 30 Days #30 06/04/17 08/18/17 pantoprazole 40 mg tablet,delayed 40 mg PO DAILY 30 Days #30 06/04/17 08/18/17 release pen needle, diabetic 32 gauge x See Dose Instructions .ROUTE 06/04/17 08/18/17 5/32" .MEDSUPPLY 30 Days #100 each pregabalin 75 mg capsule 75 mg PO TID 30 Days #90 06/04/17 08/18/17 Atropine Sulfate in 0.9% NaCl 1 drop OP DAILY 06/11/17 08/18/17 [Atropine 0.01%-Ns Eye Drops] prednisoLONE acetate [Pred Forte 1 drop EYE-BOTH DAILY 06/11/17 08/18/17 1% opth solution 5mL] meperidine 50 mg tablet 50 mg PO Q6HP PRN 5 Days #30 07/30/17 08/18/17 Previous Rx's Medication Instructions Recorded ondansetron 4 mg disintegrating 4 mg PO Q6H #30 tab 06/04/17 tablet ibuprofen 800 mg tablet 800 mg PO BID #60 tab 06/12/17 Allergies Allergy/AdvReac Type Severity Reaction Status Date / Time ranitidine [RANITIDINE] Allergy Severe Anaphylaxis Verified 08/13/17 11:53 adhesive tape [ADHESIVE TAPE] Allergy Intermediate I-RASH Verified 08/13/17 11: 53 bupropion [BUPROPION] Allergy Intermediate I-HIVES Verified 08/13/17 11:53 butorphanol [BUTORPHANOL] Allergy Intermediate I-HIVES Verified 08/13/17 11:53 calcium [From DHEA] Allergy Intermediate I-HIVES Verified 08/13/17 11:53 calcium carbonate [From DHEA] Allergy Intermediate I-HIVES Verified 08/13/17 11: 53 codeine [CODEINE] Allergy Intermediate I-HIVES Verified 08/13/17 11:53 hydromorphone [HYDROMORPHONE] Allergy Intermediate I-HIVES Verified 08/13/17 11: 53 prasterone (DHEA) [From DHEA] Allergy Intermediate I-HIVES Verified 08/13/17 11: 53 sumatriptan [From IMITREX] Allergy Intermediate I-HIVES Verified 08/13/17 11:53 hydrocodone [HYDROCODONE] Allergy Unknown I-ITCHING Verified 08/13/17 11:53 morphine [MORPHINE] Allergy Unknown HEADACHE Verified 08/13/17 11:53 acetaminophen [From Percocet] Allergy Hives Verified 08/13/17 11:53 oxycodone [From Percocet] Allergy Hives Verified 08/13/17 11:53 [facility] History I have reviewed the patient's past medical history: Yes Medical History: Reports:: Asthma, Diabetes Mellitus Type 2, Gastroesophageal Reflux Disease(GERD), Hyperlipidemia, Hypertension, Migraine Denies:: Cancer, Diabetes Mellitus Type 1, MRSA, Myocardial Infarction, Seizures Other Medical History: Denies: Blood Transfusion Reaction Laterality Cases: Bilateral: Carpal Tunnel Release Other Surgeries: Yes: , Hysterectomy-Total, Other Amputation: No Fractures: Yes Comment: Left Charcot Reconstruction - Social History Smoking Status: Former smoker Tobacco Type: cigarettes #Yrs smoked (if former smoker): 15 Alcohol Intake: never Alcohol Intake Frequency:: holidays/special occasions only Substance Use Type: denies use Occupational Status: employed Housing: house Household Members: spouse, family - Psychiatric History Expresses thoughts of harming self/others: None Suicide Plan Description: No Plan Family Hx:: Cancer, Diabetes, Heart Attack, Hypertension, Asthma ROS Obtained: Yes All systems reviewed & no additional complaints - Constitutional Constitutional: Reports fever(s), Reports malaise - Eyes Eyes: Denies change in vision - ENT Ears, Nose, Mouth, and Throat: Denies sore throat - Cardiovascular Cardiovascular: Denies chest pain - Respiratory Respiratory: Yes cough, No coughing up blood - Gastrointestinal Gastrointestingal: Denies: abdominal pain - Genitourinary Female Genitourinary: Denies hematuria - Musculoskeletal Musculoskeletal: Denies joint pain, Denies joint swelling - Integumentary/Breasts Skin/Breast: Denies rash - Neurologic Neurologic: Denies seizure-like activity Physical Exam - General General appearance: in no apparent distress - Head Head exam: normocephalic - Eye Eye exam: Present: PERRL, EOMI. Absent: scleral icterus - ENT ENT exam: Present: normal oropharynx, mucous membranes dry, TM's normal bilaterally - Neck Neck exam: Present: trachea midline - Respiratory Respiratory exam: Present: normal lung sounds bilaterally. Absent: respiratory distress - Cardiovascular Cardiovascular exam: Present: regular rate, systolic murmur. Absent: rubs, gallop - Abdominal Exam Abdominal exam: Present: soft - Extremities Exam Extremities exam: Absent: calf tenderness - Neurological Exam Neurological exam: Present: alert, oriented X3, CN II-XII intact - Psychiatric Psychiatric exam: Present: normal affect - Skin Skin exam: Absent: rash
[2017-08-19 05:21] LABS: Basophils % 0.4 % (0.1-2.0); Eosinophils # 0.2 K/mm3 (0.0-0.4); Eosinophils % 2.7 % (0.1-12.0); Hematocrit 37.7 % (37.0-47.0); Hemoglobin 12.5 g/dL (12.2-16.2); Lymphocytes # 2.8 K/mm3 (0.7-4.5); Lymphocytes % 33.8 K/mm3 (10-50); Mean Corpuscular HGB Conc 33.2 g/dL (31.8-35.4); Mean Corpuscular Hemoglobin 30.2 pg (27.0-31.2); Mean Platelet Volume 9.4 fl (7.4-10.4); Monocytes # 0.5 K/mm3 (0.1-1.0); Monocytes % 6.4 % (1.7-9.3); Neutrophils # 4.7 K/mm3 (1.8-7.8); Neutrophils % 56.7 % (37.0-80.0); Platelet Count 169 K/mm3 (142-424); Red Blood Count 4.14 M/mm3 (4.20-5.40); Red Cell Distribution Width 13.3 % (11.5-17.5); White Blood Count 8.2 K/mm3 (4.8-10.8)
[2017-08-19 05:35] LABS: Anion Gap 14.7 mEq/L (5-15); Potassium 4.7 mmoL/L (3.5-5.1)
--- NOTE | 2017-08-19 07:23 | Pharmacy Consult Notes ---
[facility] Pharmacy VTE Monitoring - Patient Demographics Admission date: 08/19/17 Report Date: 08/19/17 Time: 07:23 Allergies/Adverse Reactions: Patient Allergies ranitidine [RANITIDINE] Allergy (Severe, Verified 08/13/17 11:53) Anaphylaxis adhesive tape [ADHESIVE TAPE] Allergy (Intermediate, Verified 08/13/17 11:53) I-RASH bupropion [BUPROPION] Allergy (Intermediate, Verified 08/13/17 11:53) I-HIVES butorphanol [BUTORPHANOL] Allergy (Intermediate, Verified 08/13/17 11:53) I-HIVES calcium [From DHEA] Allergy (Intermediate, Verified 08/13/17 11:53) I-HIVES calcium carbonate [From DHEA] Allergy (Intermediate, Verified 08/13/17 11:53) I-HIVES codeine [CODEINE] Allergy (Intermediate, Verified 08/13/17 11:53) I-HIVES hydromorphone [HYDROMORPHONE] Allergy (Intermediate, Verified 08/13/17 11:53) I-HIVES prasterone (DHEA) [From DHEA] Allergy (Intermediate, Verified 08/13/17 11:53) I-HIVES sumatriptan [From IMITREX] Allergy (Intermediate, Verified 08/13/17 11:53) I-HIVES hydrocodone [HYDROCODONE] Allergy (Unknown, Verified 08/13/17 11:53) I-ITCHING morphine [MORPHINE] Allergy (Unknown, Verified 08/13/17 11:53) HEADACHE acetaminophen [From Percocet] Allergy (Verified 08/13/17 11:53) Hives oxycodone [From Percocet] Allergy (Verified 08/13/17 11:53) Hives Height: 1.65 m Weight: 102.228 kg Patient Problems: Current Active Problems Community acquired pneumonia (Acute) IDDM (insulin dependent diabetes mellitus) (Acute) - VTE Risk Labs: VTE Related Lab Results Hgb 12.5 g/dL (12.2-16.2) 08/19/17 05:10 Hct 37.7 % (37.0-47.0) 08/19/17 05:10 Plt Count 169 K/mm3 (142-424) 08/19/17 05:10 BUN 14 mg/dL (7-18) 08/19/17 05:10 Creatinine 0.73 mg/dL (0.55-1.02) D 08/19/17 05:10 Estimated Creat Clear 149 mL/min (0-300) 08/19/17 05:10 VTE Risk Level: Moderate Risk - Prophylaxis VTE Prophylaxis Ordered?: Yes Types of VTE Prophylaxis: TEDS Knee High Location of Applied Device: Bilateral Lower Extremeties - VTE Diagnosis Confirmed Treatment or plan recommended: Continue Current Treatment
--- NOTE | 2017-08-19 08:10 | History & Physical Report ---
*Admission Date: 08/19/17 *Chief complaint: Cough/fever *History of present illness: Patient is a type I diabetic who had reconstructive foot surgery 1 month ago and about 3 or 4 is ago began to have cough, congestion and fever. Came to the emergency department last night, found to have minimally lowered oxygen saturations in. On chest x-ray. Admitted to hospital for IV antibiotics given her immunocompromised status. [facility] History Medical History: Reports:: Asthma, Diabetes Mellitus Type 2, Gastroesophageal Reflux Disease(GERD), Hyperlipidemia, Hypertension, Migraine Denies:: Cancer, Diabetes Mellitus Type 1, MRSA, Myocardial Infarction, Seizures Other Medical History: Denies: Blood Transfusion Reaction Laterality Cases: Bilateral: Carpal Tunnel Release Other Surgeries: Yes: Cholecystectomy, , Hysterectomy-Total, Other Amputation: No Fractures: Yes - *Social History Educational Level: Completed College Smoking Status: Never smoker Tobacco Type: cigarettes #Yrs smoked (if former smoker): 15 Alcohol Intake: never Alcohol Intake Frequency:: holidays/special occasions only Substance Use Type: denies use Occupational Status: employed Housing: house Household Members: spouse, family - Psychiatric History Expresses thoughts of harming self/others: None Suicide Plan Description: No Plan *Family Hx:: Cancer, Diabetes, Heart Attack, Hypertension, Asthma Review of Systems - Review of Systems Review of systems:: unable to obtain, other, pertinent systems reviewed and negative unless documented below - *Neurologic Denies seizure-like activity Meds Home Medications Medication Instructions Recorded Confirmed Type albuterol sulfate HFA 90 1 puff INHALATION DAILY PRN 17 06/04/17 08/18/17 History mcg/actuation aerosol inhaler Days #18 alogliptin 12.5 mg tablet 12.5 mg PO DAILY 30 Days #30 06/04/17 08/18/17 History amitriptyline 25 mg tablet 25 mg PO DAILY 30 Days #30 06/04/17 08/18/17 History brimonidine-timolol 0.2 %-0.5 % 1 drp OPHTHALMIC BID 30 Days #5 06/04/17 History eye drops dulaglutide 1.5 mg/0.5 mL 0.5 % SUB-Q WEEKLY 28 Days #2 06/04/17 08/18/17 History subcutaneous pen injector escitalopram 10 mg tablet 10 mg PO DAILY 30 Days #30 06/04/17 08/18/17 History estradiol 2 mg tablet 2 mg PO DAILY 30 Days #30 06/04/17 08/18/17 History fluticasone 200 mcg-vilanterol 25 1 puff INHALATION DAILY 30 Days #60 06/04/17 08/18/17 History mcg/dose powder for inhalation fluticasone 50 mcg/actuation nasal 2 spry INTRANASAL DAILY 30 Days #16 06/04/17 08/18/17 History spray,suspension insulin aspar prot-insulin aspart 45 units SUB-Q BID 16 Days #15 06/04/17 History 100 unit/mL (70-30) subcutaneous pen metformin ER 500 mg 500 mg PO BID 30 Days #60 06/04/17 08/18/17 History tablet,extended release 24 hr montelukast 10 mg tablet 10 mg PO DAILY 30 Days #30 06/04/17 08/18/17 History pantoprazole 40 mg tablet,delayed 40 mg PO DAILY 30 Days #30 06/04/17 08/18/17 History release pregabalin 75 mg capsule 75 mg PO TID 30 Days #90 06/04/17 08/18/17 History Atropine Sulfate in 0.9% NaCl 1 drop OP DAILY 06/11/17 08/18/17 History [Atropine 0.01%-Ns Eye Drops] prednisoLONE acetate [Pred Forte 1 drop EYE-BOTH DAILY 06/11/17 08/18/17 History 1% opth solution 5mL] meperidine 50 mg tablet 50 mg PO Q6HP PRN 5 Days #30 07/30/17 08/18/17 History Ergocalciferol (Vitamin D2) 400 unit PO DAILY 08/19/17 08/19/17 History [Vitamin D] Melatonin 10 mg PO DAILY 08/19/17 08/19/17 History Vitamin E 400 unit PO DAILY 08/19/17 08/19/17 History Allergies Allergy/AdvReac Type Severity Reaction Status Date / Time ranitidine [RANITIDINE] Allergy Severe Anaphylaxis Verified 08/13/17 11:53 adhesive tape [ADHESIVE TAPE] Allergy Intermediate I-RASH Verified 08/13/17 11: 53 bupropion [BUPROPION] Allergy Intermediate I-HIVES Verified 08/13/17 11:53 butorphanol [BUTORPHANOL] Allergy Intermediate I-HIVES Verified 08/13/17 11:53 calcium [From DHEA] Allergy Intermediate I-HIVES Verified 08/13/17 11:53 calcium carbonate [From DHEA] Allergy Intermediate I-HIVES Verified 08/13/17 11: 53 codeine [CODEINE] Allergy Intermediate I-HIVES Verified 08/13/17 11:53 hydromorphone [HYDROMORPHONE] Allergy Intermediate I-HIVES Verified 08/13/17 11: 53 prasterone (DHEA) [From DHEA] Allergy Intermediate I-HIVES Verified 08/13/17 11: 53 sumatriptan [From IMITREX] Allergy Intermediate I-HIVES Verified 08/13/17 11:53 hydrocodone [HYDROCODONE] Allergy Unknown I-ITCHING Verified 08/13/17 11:53 morphine [MORPHINE] Allergy Unknown HEADACHE Verified 08/13/17 11:53 acetaminophen [From Percocet] Allergy Hives Verified 08/13/17 11:53 oxycodone [From Percocet] Allergy Hives Verified 08/13/17 11:53 Exam Vital signs and Labs for Last 24 Hours: Temp Pulse Resp BP Pulse Ox 99.3 F 104 H 16 129/63 94 L 08/19/17 07:34 08/19/17 07:34 08/19/17 07:34 08/19/17 07:34 08/19/17 07:34 Laboratory Results - last 24 hr 08/18/17 21:50: Urine Color Yellow, Urine Appearance Clear, Urine pH 6.5, Ur Specific [place] 1.015, Urine Protein 1+, Urine Glucose (UA) 3+, Urine Ketones Negative, Urine Blood 1+, Urine Nitrate Negative, Urine Bilirubin Negative, Urine Urobilinogen 0.2, Ur Leukocyte Esterase Negative, Urine RBC 5-10, Ur Squamous Epith Cells 10-20 08/18/17 22:10: WBC 7.1, RBC 4.26, Hgb 12.8, Hct 39.2, MCV 91.9, MCH 30.2, MCHC 32.8, RDW 13.3, Plt Count 184, MPV 9.0, Neut % (Auto) 62.7, Lymph % (Auto) 27.8 , [place] % (Auto) 6.4, Eos % (Auto) 2.7, Baso % (Auto) 0.4, Neut # (Auto) 4.4, Lymph # (Auto) 2.0, [place] # (Auto) 0.5, Eos # (Auto) 0.2, Baso # (Auto) 0.0 08/18/17 22:10: Sodium 133 L, Potassium 4.4, Chloride 98, Carbon Dioxide 26, Anion Gap 13.4, BUN 16, Creatinine 1.22 H, Estimated Creat Clear 79, Estimated GFR 47 L, Est GFR ( Amer) 56 L, Glucose 320 H, Calcium 8.4 L, Total Bilirubin 0.3, AST 14 L, ALT 10 L, Alkaline Phosphatase 102, Total Protein 7.3, Albumin 2.9 L, Globulin 4.4 H, Albumin/Globulin Ratio 0.7 L 08/18/17 22:10: Influenza Type A Ag Negative, Influenza Type B Ag Negative, Group A Strep Rapid Negative 08/18/17 22:45: Lactic Acid 2.3 H 08/19/17 02:50: Lactic Acid Fup @ 4Hr 4.2 H 08/19/17 05:10: WBC 8.2, RBC 4.14 L, Hgb 12.5, Hct 37.7, MCV 91.0, MCH 30.2, MCHC 33.2, RDW 13.3, Plt Count 169, MPV 9.4, Neut % (Auto) 56.7, Lymph % (Auto) 33.8, [place] % (Auto) 6.4, Eos % (Auto) 2.7, Baso % (Auto) 0.4, Neut # (Auto) 4.7 , Lymph # (Auto) 2.8, [place] # (Auto) 0.5, Eos # (Auto) 0.2, Baso # (Auto) 0.0 08/19/17 05:10: Sodium 131 L, Potassium 4.7, Chloride 101, Carbon Dioxide 20 L D , Anion Gap 14.7, BUN 14, Creatinine 0.73 D, Estimated Creat Clear 149, Estimated GFR 84, Est GFR ( Amer) 102 D, Glucose 236 H D 08/19/17 05:10: Lactic Acid Fup @ 2Hr 1.5 I & O for Last 24 hours: Intake & Output 08/16/17 08/17/17 08/18/17 08/19/17 11:59 11:59 11:59 11:59 Intake Total 1899 Balance 1900 / 1900 Weight 225 lb 6 oz Narrative: Patient is alert and oriented 3. Lungs have rhonchi and crackles in both lung camp especially in the left middle lung field on the posterior aspect. Heart rate regular. Abdomen is soft. Foot serial site looks great with well-healing scar. Good distal pulses effusion. H&P: Result - Labs Labs: Short CBC 08/18/17 08/19/17 Range/Units 22:10 05:10 WBC 7.1 8.2 (4.8-10.8) K/mm3 Hgb 12.8 12.5 (12.2-16.2) g/dL Hct 39.2 37.7 (37.0-47.0) % Plt Count 184 169 (142-424) K/mm3 BMP 08/18/17 08/19/17 22:10 05:10 Sodium 133 L 131 L Potassium 4.4 4.7 Chloride 98 101 Carbon Dioxide 26 20 L D BUN 16 14 Creatinine 1.22 H 0.73 D Glucose 320 H 236 H D Calcium 8.4 L Liver Function 08/18/17 Range/Units 22:10 Total Bilirubin 0.3 (0.2-1.0) mg/dL AST 14 L (15-37) U/L ALT 10 L (12-78) U/L Alkaline Phosphatase 102 (46-116) U/L Albumin 2.9 L (3.4-5.0) gm/dL Urine 08/18/17 Range/Units 21:50 Urine Color Yellow (Yellow) Urine Appearance Clear (Clear) Urine pH 6.5 (5.0-8.5) Ur Specific [place] 1.015 (1.005-1.030) Urine Protein 1+ (Negative) Urine Glucose (UA) 3+ (Negative) Assessment and Plan (1) Community acquired pneumonia Current visit: Yes Status: Acute Qualifiers: Laterality: left Lung location: upper lobe of lung Qualified Code(s): J18.1 - Lobar pneumonia, unspecified organism Category: Medical Code(s): J18.9 - Pneumonia, unspecified organism (2) IDDM (insulin dependent diabetes mellitus) Current visit: Yes Status: Acute Category: Medical Code(s): E11.9 - Type 2 diabetes mellitus without complications; Z79.4 - [facility] (current) use of insulin - Assessment and plan all Dx Assessment and Plan for all problems:: Agree with IV antibiotics given her immunocompromised status. Close observation of pulmonary toilet.
--- NOTE | 2017-08-20 07:45 | Progress Note ---
Internal Medicine - PN: Subj *Date: 08/20/17 *Time: 07:30 Interval history: Patient had a rough night. Oxygen consumption increased to 10 liters per nasal cannula. She was given a dose of Lasix, as well with some results. She had temperatures of 103 through the night. She reports a "horrible headache." No relief from tylenol. She was able to produce a sputum specimen for culture. Alert and oriented x3. Rate and rhythm regular. Mildly tachycardiac. No LE edema. Lung sounds with crackles left lower/left middle lobes. Loose rhonchi bilaterally, clears with cough. Abdomen soft and nontender. Exam Vital signs and Labs for Last 24 Hours: Temp Pulse Resp BP Pulse Ox 101.8 F H 108 H 22 144/77 93 L 08/20/17 07:34 08/20/17 07:34 08/20/17 07:34 08/20/17 07:34 08/20/17 07:34 Laboratory Results - last 24 hr 08/19/17 11:18: POC Glucose 215 H 08/19/17 16:51: POC Glucose 243 H 08/19/17 20:42: POC Glucose 302 H* 08/20/17 06:18: POC Glucose 207 H I & O for Last 24 hours: Intake & Output 08/17/17 08/18/17 08/19/17 08/20/17 11:59 11:59 11:59 11:59 Intake Total 1900 / 1900 1390 / 1390 Output Total 1800 / 1800 Balance 1900 / 1900 -410 / -410 Weight 225 lb 6 oz 225 lb 5.986 oz Microbiology Reports for the Last 24 Hours: Microbiology 08/18/17 22:45 Blood Blood Culture - Preliminary NO GROWTH AFTER 24 HOURS 08/18/17 22:45 Blood Blood Culture - Preliminary NO GROWTH AFTER 24 HOURS Assessment and Plan (1) Community acquired pneumonia Current visit: Yes Status: Acute Qualifiers: Laterality: left Lung location: upper lobe of lung Qualified Code(s): J18.1 - Lobar pneumonia, unspecified organism Category: Medical Code(s): J18.9 - Pneumonia, unspecified organism (2) IDDM (insulin dependent diabetes mellitus) Current visit: Yes Status: Acute Category: Medical Code(s): E11.9 - Type 2 diabetes mellitus without complications; Z79.4 - residential (current) use of insulin - Assessment and plan all Dx Assessment and Plan for all problems:: Will obtain upper respiratory PCR. Change antibiotics to azithromycin, unasyn and vancomycin for broad spectrum coverage. Motrin added for fevers and headache. CXR to evaluate for worsening pneumonia.
--- NOTE | 2017-08-20 08:37 | Pharmacy Consult Notes ---
- Pharmacy Consult Date: 08/20/17 Time: 08:34 Referring provider: FARHAD GAMBINO Reason for Consult:: VANCOMYCIN DOSING Allergies and ADEs:: Allergies Allergy/AdvReac Type Severity Reaction Status Date / Time ranitidine [RANITIDINE] Allergy Severe Anaphylaxis Verified 08/13/17 11:53 adhesive tape [ADHESIVE TAPE] Allergy Intermediate I-RASH Verified 08/13/17 11: 53 bupropion [BUPROPION] Allergy Intermediate I-HIVES Verified 08/13/17 11:53 butorphanol [BUTORPHANOL] Allergy Intermediate I-HIVES Verified 08/13/17 11:53 calcium [From DHEA] Allergy Intermediate I-HIVES Verified 08/13/17 11:53 calcium carbonate [From DHEA] Allergy Intermediate I-HIVES Verified 08/13/17 11: 53 codeine [CODEINE] Allergy Intermediate I-HIVES Verified 08/13/17 11:53 hydromorphone [HYDROMORPHONE] Allergy Intermediate I-HIVES Verified 08/13/17 11: 53 prasterone (DHEA) [From DHEA] Allergy Intermediate I-HIVES Verified 08/13/17 11: 53 sumatriptan [From IMITREX] Allergy Intermediate I-HIVES Verified 08/13/17 11:53 hydrocodone [HYDROCODONE] Allergy Unknown I-ITCHING Verified 08/13/17 11:53 morphine [MORPHINE] Allergy Unknown HEADACHE Verified 08/13/17 11:53 oxycodone [From Percocet] Allergy Hives Verified 08/13/17 11:53 Home Medications:: Home Medications Medication Instructions Recorded Confirmed Type albuterol sulfate HFA 90 1 puff INHALATION DAILY PRN 17 06/04/17 08/18/17 History mcg/actuation aerosol inhaler Days #18 alogliptin 12.5 mg tablet 12.5 mg PO DAILY 30 Days #30 06/04/17 08/18/17 History amitriptyline 25 mg tablet 25 mg PO DAILY 30 Days #30 06/04/17 08/18/17 History brimonidine-timolol 0.2 %-0.5 % 1 drp OPHTHALMIC BID 30 Days #5 06/04/17 History eye drops dulaglutide 1.5 mg/0.5 mL 0.5 % SUB-Q WEEKLY 28 Days #2 06/04/17 08/18/17 History subcutaneous pen injector escitalopram 10 mg tablet 10 mg PO DAILY 30 Days #30 06/04/17 08/18/17 History estradiol 2 mg tablet 2 mg PO DAILY 30 Days #30 06/04/17 08/18/17 History fluticasone 200 mcg-vilanterol 25 1 puff INHALATION DAILY 30 Days #60 06/04/17 08/18/17 History mcg/dose powder for inhalation fluticasone 50 mcg/actuation nasal 2 spry INTRANASAL DAILY 30 Days #16 06/04/17 08/18/17 History spray,suspension insulin aspar prot-insulin aspart 45 units SUB-Q BID 16 Days #15 06/04/17 History 100 unit/mL (70-30) subcutaneous pen metformin ER 500 mg 500 mg PO BID 30 Days #60 06/04/17 08/18/17 History tablet,extended release 24 hr montelukast 10 mg tablet 10 mg PO DAILY 30 Days #30 06/04/17 08/18/17 History pantoprazole 40 mg tablet,delayed 40 mg PO DAILY 30 Days #30 06/04/17 08/18/17 History release pregabalin 75 mg capsule 75 mg PO TID 30 Days #90 06/04/17 08/18/17 History prednisoLONE acetate [Pred Forte 1 drop EYE-RIGHT BID 06/11/17 08/19/17 History 1% opth solution 5mL] meperidine 50 mg tablet 50 mg PO Q6HP PRN 5 Days #30 07/30/17 08/18/17 History Ergocalciferol (Vitamin D2) 400 unit PO DAILY 08/19/17 08/19/17 History [Vitamin D] Melatonin 10 mg PO DAILY 08/19/17 08/19/17 History Vitamin E 400 unit PO DAILY 08/19/17 08/19/17 History Height: 1.65 m Weight: 102.228 kg Laboratory Results:: Laboratory Results - last 24 hr 08/19/17 11:18: POC Glucose 215 H 08/19/17 16:51: POC Glucose 243 H 08/19/17 20:42: POC Glucose 302 H* 08/20/17 06:18: POC Glucose 207 H Medical History: Reports:: Asthma, Diabetes Mellitus Type 2, Gastroesophageal Reflux Disease(GERD), Hyperlipidemia, Hypertension, Migraine Denies:: Cancer, Diabetes Mellitus Type 1, MRSA, Myocardial Infarction, Seizures Assessment and Plan (1) Community acquired pneumonia Current visit: Yes Status: Acute Qualifiers: Laterality: left Lung location: upper lobe of lung Qualified Code(s): J18.1 - Lobar pneumonia, unspecified organism Category: Medical Code(s): J18.9 - Pneumonia, unspecified organism (2) IDDM (insulin dependent diabetes mellitus) Current visit: Yes Status: Acute Category: Medical Code(s): E11.9 - Type 2 diabetes mellitus without complications; 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 WILL OBTAIN VANCOMYCIN TROUGH LEVEL TOMORROW EVENING PRIOR TO 4TH DOSE. PHARMACY WILL FOLLOW DAILY AND ADJUST APPROPRIATE. FRANCK RODRIGUEZ, PHARMD
[2017-08-20 09:44] LABS: Coronavirus 229E Not Detected (NotDetected); Coronavirus NL63 Not Detected (NotDetected); Coronavirus OC43 Not Detected (NotDetected); Coronovirus HKU1,PCR Not Detected (NotDetected)
--- NOTE | 2017-08-21 07:50 | Progress Note ---
Internal Medicine - PN: Subj *Date: 08/21/17 *Time: 07:49 Interval history: Overall patient feels much better. Fever has improved. Respiratory status is improved and oxygen requirement has declined. Exam Vital signs and Labs for Last 24 Hours: Temp Pulse Resp BP Pulse Ox 98.6 F 102 H 20 166/85 91 L 08/21/17 07:40 08/21/17 07:40 08/21/17 07:40 08/21/17 07:40 08/21/17 07:40 Laboratory Results - last 24 hr 08/19/17 05:52: POC Glucose 232 H 08/20/17 09:30: Chlamy pneumoniae PCR Not detected, Adenovirus (PCR) Not detected, B.parapertussis DNA PCR Not detected, Coronavirus OC43 (PCR) Not detected, Coronavirus HKU1 (PCR) Not detected, Coronavirus 229E (PCR) Not detected, Coronavirus NL63 (PCR) Not detected, Human Metapneumovir PCR Not detected, Influenza A (H1) PCR Not detected, Influ A (H1N1/09) PCR Not detected , Influenza A (H3) PCR Not detected, Influenza Type A (PCR) Not detected, Influenza Type B (PCR) Not detected, M. pneumoniae (PCR) Not detected, Parainfluenza 1 (PCR) Not detected, Parainfluenza 2 (PCR) Not detected, Parainfluenza 3 (PCR) Detected A, Parainfluenza 4 (PCR) Not detected, RSV (PCR) Not detected, Entero/Rhino (PCR) Not detected 08/20/17 11:44: POC Glucose 291 H 08/20/17 17:13: POC Glucose 267 H 08/20/17 19:52: POC Glucose 292 H 08/21/17 06:20: POC Glucose 236 H I & O for Last 24 hours: Intake & Output 08/18/17 08/19/17 08/20/17 08/21/17 11:59 11:59 11:59 11:59 Intake Total 1900 / 1900 1390 / 1390 2345 / 2345 Output Total 1800 / 1800 2400 / 2400 Balance 1900 / 1900 -410 / -410 -55 / -55 Weight 225 lb 6 oz 225 lb 5.986 oz Microbiology Reports for the Last 24 Hours: Microbiology 08/18/17 22:45 Blood Blood Culture - Preliminary NO GROWTH AFTER 48 HOURS 08/18/17 22:45 Blood Blood Culture - Preliminary NO GROWTH AFTER 48 HOURS 08/20/17 04:09 Sputum - Expectorated Sputum Gram Stain - Final 08/20/17 04:09 Sputum - Expectorated Sputum Sputum Culture - Final 08/18/17 22:10 Throat Group A Streptococcus Screen (IRV[facility]) - Final Negative for Group A Streptococcus. Narrative: Patient with 2 L nasal cannula and well oxygenated. Lungs are much improved with good air movement bilaterally, minimal rhonchi and crackles in both bases but again, vastly improved. She is alert, pleasant. Oriented. Assessment and Plan (1) Community acquired pneumonia Current visit: Yes Status: Acute Qualifiers: Laterality: left Lung location: upper lobe of lung Qualified Code(s): J18.1 - Lobar pneumonia, unspecified organism Category: Medical Code(s): J18.9 - Pneumonia, unspecified organism (2) IDDM (insulin dependent diabetes mellitus) Current visit: Yes Status: Acute Category: Medical Code(s): E11.9 - Type 2 diabetes mellitus without complications; Z79.4 - [facility] (current) use of insulin - Assessment and plan all Dx Assessment and Plan for all problems:: Overall improving. Continue current therapy. Supportive care, pulmonary toilet. Probable discharge tomorrow.
--- NOTE | 2017-08-22 08:01 | Progress Note ---
Internal Medicine - PN: Subj *Date: 08/22/17 *Time: 07:59 Interval history: Patient feels better from a respiratory perspective but has some ongoing vomiting, however has been able to keep down some liquids. Exam Vital signs and Labs for Last 24 Hours: Temp Pulse Resp BP Pulse Ox 98.2 F 98 H 12 140/70 86 L 08/22/17 04:00 08/22/17 06:30 08/22/17 04:00 08/22/17 04:00 08/22/17 06:30 Laboratory Results - last 24 hr 08/21/17 11:18: POC Glucose 233 H 08/21/17 17:15: POC Glucose 215 H 08/21/17 20:20: POC Glucose 197 H 08/21/17 21:30: Vancomycin Trough 15.4 08/22/17 06:05: POC Glucose 216 H I & O for Last 24 hours: Intake & Output 08/19/17 08/20/17 08/21/17 08/22/17 11:59 11:59 11:59 11:59 Intake Total 1900 / 1900 1390 / 1390 2390 / 2390 2021 / 2021 Output Total 1800 / 1800 2800 / 2800 350 / 350 Balance 1900 / 1900 -410 / -410 -410 / -410 1672 / 1672 Weight 225 lb 6 oz 225 lb 5.986 oz Microbiology Reports for the Last 24 Hours: Microbiology 08/21/17 16:40 Sputum - Expectorated Sputum Gram Stain - Final 08/21/17 16:40 Sputum - Expectorated Sputum Sputum Culture - Final 08/18/17 22:45 Blood Blood Culture - Preliminary NO GROWTH AFTER 72 HOURS 08/18/17 22:45 Blood Blood Culture - Preliminary Narrative: Lungs have rhonchi and bibasilar crackles. Heart rate regular, abdomen soft, no murmurs. Assessment and Plan (1) Community acquired pneumonia Current visit: Yes Status: Acute Qualifiers: Laterality: left Lung location: upper lobe of lung Qualified Code(s): J18.1 - Lobar pneumonia, unspecified organism Category: Medical Code(s): J18.9 - Pneumonia, unspecified organism (2) IDDM (insulin dependent diabetes mellitus) Current visit: Yes Status: Acute Category: Medical Code(s): E11.9 - Type 2 diabetes mellitus without complications; Z79.4 - group home (current) use of insulin - Assessment and plan all Dx Assessment and Plan for all problems:: Lasix to help with fluid overload. Continue supportive care and IV antibiotics. Await culture results. I think bacteremia result is probably a contaminant.
--- NOTE | 2017-08-22 11:14 | Pharmacy Consult Notes ---
- Pharmacy Consult Date: 08/22/17 Time: 11:13 Referring provider: DR. CELESTE Reason for Consult:: VANCOMYCIN TROUGH LEVEL Allergies and ADEs:: Allergies Allergy/AdvReac Type Severity Reaction Status Date / Time ranitidine [RANITIDINE] Allergy Severe Anaphylaxis Verified 08/13/17 11:53 adhesive tape [ADHESIVE TAPE] Allergy Intermediate I-RASH Verified 08/13/17 11: 53 bupropion [BUPROPION] Allergy Intermediate I-HIVES Verified 08/13/17 11:53 butorphanol [BUTORPHANOL] Allergy Intermediate I-HIVES Verified 08/13/17 11:53 calcium [From DHEA] Allergy Intermediate I-HIVES Verified 08/13/17 11:53 calcium carbonate [From DHEA] Allergy Intermediate I-HIVES Verified 08/13/17 11: 53 codeine [CODEINE] Allergy Intermediate I-HIVES Verified 08/13/17 11:53 hydromorphone [HYDROMORPHONE] Allergy Intermediate I-HIVES Verified 08/13/17 11: 53 prasterone (DHEA) [From DHEA] Allergy Intermediate I-HIVES Verified 08/13/17 11: 53 sumatriptan [From IMITREX] Allergy Intermediate I-HIVES Verified 08/13/17 11:53 hydrocodone [HYDROCODONE] Allergy Unknown I-ITCHING Verified 08/13/17 11:53 morphine [MORPHINE] Allergy Unknown HEADACHE Verified 08/13/17 11:53 oxycodone [From Percocet] Allergy Hives Verified 08/13/17 11:53 Home Medications:: Home Medications Medication Instructions Recorded Confirmed Type albuterol sulfate HFA 90 1 puff INHALATION DAILY PRN 17 06/04/17 08/18/17 History mcg/actuation aerosol inhaler Days #18 alogliptin 12.5 mg tablet 12.5 mg PO DAILY 30 Days #30 06/04/17 08/18/17 History amitriptyline 25 mg tablet 25 mg PO DAILY 30 Days #30 06/04/17 08/18/17 History brimonidine-timolol 0.2 %-0.5 % 1 drp OPHTHALMIC BID 30 Days #5 06/04/17 History eye drops dulaglutide 1.5 mg/0.5 mL 0.5 % SUB-Q WEEKLY 28 Days #2 06/04/17 08/18/17 History subcutaneous pen injector escitalopram 10 mg tablet 10 mg PO DAILY 30 Days #30 06/04/17 08/18/17 History estradiol 2 mg tablet 2 mg PO DAILY 30 Days #30 06/04/17 08/18/17 History fluticasone 200 mcg-vilanterol 25 1 puff INHALATION DAILY 30 Days #60 06/04/17 08/18/17 History mcg/dose powder for inhalation fluticasone 50 mcg/actuation nasal 2 spry INTRANASAL DAILY 30 Days #16 06/04/17 08/18/17 History spray,suspension insulin aspar prot-insulin aspart 45 units SUB-Q BID 16 Days #15 06/04/17 History 100 unit/mL (70-30) subcutaneous pen metformin ER 500 mg 500 mg PO BID 30 Days #60 06/04/17 08/18/17 History tablet,extended release 24 hr montelukast 10 mg tablet 10 mg PO DAILY 30 Days #30 06/04/17 08/18/17 History pantoprazole 40 mg tablet,delayed 40 mg PO DAILY 30 Days #30 06/04/17 08/18/17 History release pregabalin 75 mg capsule 75 mg PO TID 30 Days #90 06/04/17 08/18/17 History prednisoLONE acetate [Pred Forte 1 drop EYE-RIGHT BID 06/11/17 08/19/17 History 1% opth solution 5mL] meperidine 50 mg tablet 50 mg PO Q6HP PRN 5 Days #30 07/30/17 08/18/17 History Ergocalciferol (Vitamin D2) 400 unit PO DAILY 08/19/17 08/19/17 History [Vitamin D] Melatonin 10 mg PO DAILY 08/19/17 08/19/17 History Vitamin E 400 unit PO DAILY 08/19/17 08/19/17 History Height: 1.65 m Weight: 102.228 kg Laboratory Results:: Laboratory Results - last 24 hr 08/21/17 11:18: POC Glucose 233 H 08/21/17 17:15: POC Glucose 215 H 08/21/17 20:20: POC Glucose 197 H 08/21/17 21:30: Vancomycin Trough 15.4 08/22/17 06:05: POC Glucose 216 H Medical History: Reports:: Asthma, Diabetes Mellitus Type 2, Gastroesophageal Reflux Disease(GERD), Hyperlipidemia, Hypertension, Migraine Denies:: Cancer, Diabetes Mellitus Type 1, MRSA, Myocardial Infarction, Seizures Assessment and Plan (1) Community acquired pneumonia Current visit: Yes Status: Acute Qualifiers: Laterality: left Lung location: upper lobe of lung Qualified Code(s): J18.1 - Lobar pneumonia, unspecified organism Category: Medical Code(s): J18.9 - Pneumonia, unspecified organism (2) IDDM (insulin dependent diabetes mellitus) Current visit: Yes Status: Acute Category: Medical Code(s): E11.9 - Type 2 diabetes mellitus without complications; Z79.4 - senior living (current) use of insulin - Assessment and plan all Dx Assessment and Plan for all problems:: BASED ON VANCOMYCIN TROUGH LEVEL AND PATIENT FACTORS, RECOMMEND CONTINUING VANCOMYCIN 2 GM IV Q12H. PHARMACY WILL CONTINUE TO MONITOR DAILY AND ADJUST APPROPRIATE.
[2017-08-23 08:05] VITALS: BP 137/92
--- NOTE | 2017-08-23 08:25 | Discharge Summary ---
General - General Admission date:: 08/19/17 Discharge date: 08/23/17 HPI HPI: Patient is a type I diabetic who had reconstructive foot surgery 1 month ago and about 3 or 4 is ago began to have cough, congestion and fever. Came to the emergency department last night, found to have minimally lowered oxygen saturations in. On chest x-ray. Admitted to hospital for IV antibiotics given her immunocompromised status. Hospital Course Hospital Course: Patient was admitted to hospital, started on broad-spectrum IV antibiotics. Given her persistent high fever and poor response to antibiotics PCR was done which revealed positive serology for parainfluenza which certainly fit with her clinical picture of a viral pneumonitis. She improved in a stepwise fashion over the next 48 hours. Antibiotics were continued. Sputum culture was negative, blood culture showed positive PCR for gram- positive cocci but no growth at the time of discharge and this was felt to be a contaminant given her lack of other stigmata of bacteria. She did continue to require oxygen through her hospital stay and even on discharge required 2 L by nasal cannula. She recently had retinal surgery and during the hospitalization had some swelling and pressure sensations in her right eyeball. She has been in contact with her retina associate and they wish to see her today on hospital discharge. She will be discharged today with instructions to proceed directly to their office for evaluation. This morning she was much improved from a pulmonary standpoint, less crackles, excellent air movement, slightly improved oxygenation with normal vital signs. She will be discharged home with oxygen, antibiotics to finish a 7 day course for possible bacterial overgrowth of the viral pneumonitis and follow-up with her regular physician in [place]. Objective Vital signs: Temp Pulse Resp BP Pulse Ox 98.0 F 91 H 16 137/92 95 08/23/17 08:00 08/23/17 08:00 08/23/17 08:00 08/23/17 08:00 08/23/17 08:00 Narrative: Alert, pleasant, oriented 3. No rash. Vital signs unremarkable. Lungs have good air, much less crackles. Only minimal rhonchi in both bases. Heart rate regular without murmurs. Abdomen soft nontender sclera are not red. Results Labs on day of discharge: Labs from last 24 hours 08/23/17 08/22/17 08/22/17 05:44 20:48 16:18 POC Glucose 224 H 272 H 162 H 08/22/17 13:07 POC Glucose 273 H Preliminary micro results at discharge 08/18/17 22:45 Blood Culture - Preliminary Blood NO GROWTH AFTER 4 DAYS 08/18/17 22:45 Blood Culture - Preliminary Blood Gram Positive Bacilli DS: Diagnosis - Discharge Diagnosis (1) Community acquired pneumonia Status: Acute (2) IDDM (insulin dependent diabetes mellitus) Status: Acute (3) Viral pneumonitis Status: Acute (4) Parainfluenza virus pneumonia Status: Acute Discharge Plan - Patient Discharge Instructions ACTIVITY: Continue current activity DIET: continue same diet Patient Instructions: Pneumonia-Adult, Type 2 Diabetes, DI for Pneumonia -- Adult, DI for Diabetes Type 2 - Follow up Plan Follow up with: Sabas Tabares [Referring] - 08/27/17 Disposition: Home, Self-Long Term Medications: Home Medications Medication Instructions Recorded Confirmed Type albuterol sulfate HFA 90 1 puff INHALATION DAILY PRN 17 06/04/17 08/18/17 History mcg/actuation aerosol inhaler Days #18 alogliptin 12.5 mg tablet 12.5 mg PO DAILY 30 Days #30 06/04/17 08/18/17 History amitriptyline 25 mg tablet 25 mg PO DAILY 30 Days #30 06/04/17 08/18/17 History brimonidine-timolol 0.2 %-0.5 % 1 drp OPHTHALMIC BID 30 Days #5 06/04/17 History eye drops dulaglutide 1.5 mg/0.5 mL 0.5 % SUB-Q WEEKLY 28 Days #2 06/04/17 08/18/17 History subcutaneous pen injector escitalopram 10 mg tablet 10 mg PO DAILY 30 Days #30 06/04/17 08/18/17 History estradiol 2 mg tablet 2 mg PO DAILY 30 Days #30 06/04/17 08/18/17 History fluticasone 200 mcg-vilanterol 25 1 puff INHALATION DAILY 30 Days #60 06/04/17 08/18/17 History mcg/dose powder for inhalation fluticasone 50 mcg/actuation nasal 2 spry INTRANASAL DAILY 30 Days #16 06/04/17 08/18/17 History spray,suspension insulin aspar prot-insulin aspart 45 units SUB-Q BID 16 Days #15 06/04/17 History 100 unit/mL (70-30) subcutaneous pen metformin ER 500 mg 500 mg PO BID 30 Days #60 06/04/17 08/18/17 History tablet,extended release 24 hr montelukast 10 mg tablet 10 mg PO DAILY 30 Days #30 06/04/17 08/18/17 History pantoprazole 40 mg tablet,delayed 40 mg PO DAILY 30 Days #30 06/04/17 08/18/17 History release pregabalin 75 mg capsule 75 mg PO TID 30 Days #90 06/04/17 08/18/17 History prednisoLONE acetate [Pred Forte 1 drop EYE-RIGHT BID 06/11/17 08/19/17 History 1% opth solution 5mL] meperidine 50 mg tablet 50 mg PO Q6HP PRN 5 Days #30 07/30/17 08/18/17 History Ergocalciferol (Vitamin D2) 400 unit PO DAILY 08/19/17 08/19/17 History [Vitamin D] Melatonin 10 mg PO DAILY 08/19/17 08/19/17 History Vitamin E 400 unit PO DAILY 08/19/17 08/19/17 History Prescriptions/Medication Reconciliation: New Amoxicillin/Potassium Clav [Augmentin 875-125 Tablet] 1 tab PO Q12H #10 tab Continue albuterol sulfate HFA 90 mcg/actuation aerosol inhaler 1 puff INHALATION DAILY PRN 17 Days #18 PRN Reason: asthma estradiol 2 mg tablet 2 mg PO DAILY 30 Days #30 amitriptyline 25 mg tablet 25 mg PO DAILY 30 Days #30 fluticasone 200 mcg-vilanterol 25 mcg/dose powder for inhalation 1 puff INHALATION DAILY 30 Days #60 brimonidine-timolol 0.2 %-0.5 % eye drops 1 drp OPHTHALMIC BID 30 Days #5 montelukast 10 mg tablet 10 mg PO DAILY 30 Days #30 escitalopram 10 mg tablet 10 mg PO DAILY 30 Days #30 pantoprazole 40 mg tablet,delayed release 40 mg PO DAILY 30 Days #30 dulaglutide 1.5 mg/0.5 mL subcutaneous pen injector 0.5 % SUB-Q WEEKLY 28 Days #2 pregabalin 75 mg capsule 75 mg PO TID 30 Days #90 ibuprofen 800 mg tablet 800 mg PO BID #60 tab meperidine 50 mg tablet 50 mg PO Q6HP PRN 5 Days #30 PRN Reason: PAIN metformin ER 500 mg tablet,extended release 24 hr 500 mg PO BID 30 Days #60 fluticasone 50 mcg/actuation nasal spray,suspension 2 spry INTRANASAL DAILY 30 Days #16 alogliptin 12.5 mg tablet 12.5 mg PO DAILY 30 Days #30 ondansetron 4 mg disintegrating tablet 4 mg PO Q6H #30 tab prednisoLONE acetate [Pred Forte 1% opth solution 5mL] 1 drop EYE-RIGHT BID Melatonin 10 mg PO DAILY Ergocalciferol (Vitamin D2) [Vitamin D] 400 unit PO DAILY Vitamin E 400 unit PO DAILY No Action insulin aspar prot-insulin aspart 100 unit/mL (70-30) subcutaneous pen 45 units SUB-Q BID 16 Days #15
--- NOTE | 2017-08-23 08:35 | Progress Note ---
Internal Medicine - PN: Subj *Date: 08/23/17 *Time: 08:34 Exam Vital signs and Labs for Last 24 Hours: Temp Pulse Resp BP Pulse Ox 98.0 F 91 H 16 137/92 95 08/23/17 08:00 08/23/17 08:00 08/23/17 08:00 08/23/17 08:00 08/23/17 08:00 Laboratory Results - last 24 hr 08/22/17 13:07: POC Glucose 273 H 08/22/17 16:18: POC Glucose 162 H 08/22/17 20:48: POC Glucose 272 H 08/23/17 05:44: POC Glucose 224 H I & O for Last 24 hours: Intake & Output 08/20/17 08/21/17 08/22/17 08/23/17 23:59 23:59 23:59 23:59 Intake Total 460 / 460 2586 / 2586 2306 / 2306 2026 Output Total 2700 / 2700 850 / 850 1675 / 1675 Balance -2240 / -2240 1736 / 1736 631 / 631 2026 Weight 102.228 kg 102.228 kg Microbiology Reports for the Last 24 Hours: Microbiology 08/18/17 22:45 Blood Blood Culture - Preliminary NO GROWTH AFTER 4 DAYS 08/18/17 22:45 Blood - Final Not Reportable 08/18/17 22:45 Blood - Final Not Reportable 08/18/17 22:45 Blood - Final Not Reportable 08/18/17 22:45 Blood - Final Not Reportable 08/18/17 22:45 Blood - Final Not Reportable 08/18/17 22:45 Blood Blood Culture - Preliminary Gram Positive Bacilli 08/21/17 16:40 Sputum - Expectorated Sputum Gram Stain - Final 08/21/17 16:40 Sputum - Expectorated Sputum Sputum Culture - Final Assessment and Plan (1) Community acquired pneumonia Current visit: Yes Status: Acute Qualifiers: Laterality: left Lung location: upper lobe of lung Qualified Code(s): J18.1 - Lobar pneumonia, unspecified organism Category: Medical Code(s): J18.9 - Pneumonia, unspecified organism (2) IDDM (insulin dependent diabetes mellitus) Current visit: Yes Status: Acute Category: Medical Code(s): E11.9 - Type 2 diabetes mellitus without complications; Z79.4 - salvage determiner (current) use of insulin (3) Viral pneumonitis Current visit: Yes Status: Acute Category: Medical Code(s): J12.9 - Viral pneumonia, unspecified (4) Parainfluenza virus pneumonia Current visit: Yes Status: Acute Category: Medical Code(s): J12.2 - Parainfluenza virus pneumonia The patient's infection will respond to the chosen ABx?: Yes Is the patient receiving the right drug, dose, and route?: Yes Could a more targeted ABx be ordered?: No (HOME ON AUGMENTIN)
== END 2017-08-23 11:34 | disposition home or self-care (01) ==
LOC: 2ND 21:45 → ER 21:45 → OBSVTOIN 08-19 00:45 → 2ND 08-19 00:50
PROVIDERS: ADMIT Internal Medicine Adolescent Medicine; ATTEND Internal Medicine Adolescent Medicine
CPT/HCPCS: 36415; 71010; 71020; 71045; 71046; 80048; 80053; 80202; 81001; 82962; 83605; 85025; 87040; 87070; 87077; 87205; 87275; 87276; 87430; 87486; 87581; 87633; 87798; 94640; 94761; 96365; 96367; 99285; J0456; J2405; J3370

== ENCOUNTER → 2017-09-12 11:47 | Outpatient (CLI) | payer BC, OTHER, SELFPAY ==
--- NOTE | 2017-09-12 11:49 | XR_ITS ---
XR foot wt bearing LT 3V HISTORY: Follow-up effusion/surgery ITS.REASON: Post-op Views ORDERING PHYSICIAN: Aure Bee DPM PATIENT AGE: 51 years COMPARISON: 08/13/2017 FINDINGS: Weightbearing views are performed. A medial bone plate with multiple screws once again noted along the proximal aspect of the first metatarsal, medial cuneiform, navicular, and distal talus. There remains a long screw extending through the first metatarsal into the navicular and distal talus. A long screw is also noted within the fourth metatarsal into the cuboid. Tracks are present in the third and second metatarsals from previous fixation device. IMPRESSION: Overall no change with good alignment and extensive postsurgical changes of the foot as described above.
== END ==
PROVIDERS: Visit Provider Podiatrist
DX: Z98.890 Other specified postprocedural states (principal)
CPT/HCPCS: 73630

== ENCOUNTER → 2017-10-11 10:55 | Outpatient (POV) | payer BC, SELFPAY | PROVIDERS: Visit Provider Podiatrist | DX: Z00.00 Encounter for general adult medical examination without abnormal findings (principal) ==

== ENCOUNTER → 2017-11-19 09:43 | Outpatient (CLI) | payer BC, SELFPAY ==
--- NOTE | 2017-11-19 09:44 | XR_ITS ---
XR foot wt bearing LT 3V HISTORY: Follow-up surgery ITS.REASON: post-op views ORDERING PHYSICIAN: Aure Bee DPM PATIENT AGE: 51 years COMPARISON: 09/12/2017 FINDINGS: A medial bone plate with multiple screws once again noted along the proximal aspect of the first metatarsal, medial cuneiform, navicular, and distal talus. There remains a long screw extending through the first metatarsal into the navicular and distal talus. A long screw is also noted within the fourth metatarsal into the cuboid. Tracks are present in the third and second metatarsals from previous fixation device. IMPRESSION: Overall no change with good alignment and extensive postsurgical changes of the foot as described above.
== END ==
PROVIDERS: Visit Provider Podiatrist
DX: Z98.890 Other specified postprocedural states (principal)
CPT/HCPCS: 73630

== ENCOUNTER → 2018-02-13 09:16 | Outpatient (CLI) | payer BC, SELFPAY ==
--- NOTE | 2018-02-13 09:18 | XR_ITS ---
XR ankle wt bearing LT min 3V HISTORY: ITS.REASON: pain ORDERING PHYSICIAN: Aure Bee DPM PATIENT AGE: 52 years Comparison: None FINDINGS: The ankle joint has unremarkable.. Please see foot report for for description of the orthopedic hardware in the foot. Ankle mortise is preserved. IMPRESSION: No acute finding of the ankle
--- NOTE | 2018-02-13 09:18 | XR_ITS ---
XR foot wt bearing RT 3V HISTORY: ITS.REASON: pain ORDERING PHYSICIAN: Aure Bee DPM PATIENT AGE: 52 years COMPARISON: None FINDINGS: No fracture or dislocation. No lytic or blastic change. There is normal mineralization.. The joint spaces are well-preserved. No significant degenerative/arthritic changes. No erosive changes evident. There is a small area of sclerosis involving the medial aspect of the distal phalanx of the great toe IMPRESSION: No acute finding
--- NOTE | 2018-02-13 09:18 | XR_ITS ---
XR ankle wt bearing RT min 3V HISTORY: ITS.REASON: pain ORDERING PHYSICIAN: Aure Bee DPM PATIENT AGE: 52 years Comparison: None FINDINGS: No fracture or dislocation. No lytic or blastic change. There is normal mineralization.. The joint spaces are well-preserved. No significant degenerative/arthritic changes. No erosive changes evident. IMPRESSION: Negative ankle, no acute finding
--- NOTE | 2018-02-13 09:18 | XR_ITS ---
XR foot wt bearing LT 3V HISTORY: Follow-up Charcot foot surgery ITS.REASON: pain ORDERING PHYSICIAN: Aure Bee DPM PATIENT AGE: 52 years COMPARISON: 11/19/2018 FINDINGS: There is been no significant change in the mid foot fusion with medial and dorsal bone plate, long lag screw within the first metatarsal extending to the distal talus, an additional lag screw within the fourth metatarsal extending to the cuboid. Lucency is noted around the proximal 2 screws at the bone plate which are within the talus. This is nonspecific but could be seen with loosening or infection. IMPRESSION: Lucency along the proximal 2 screws within the talus as seen on the AP view nonspecific but could be seen with loosening or infection. Otherwise no change in the mid foot fusion
== END ==
PROVIDERS: PCP Pediatrics; Visit Provider Podiatrist
DX: M14.679 Charcot's joint, unspecified ankle and foot (principal); Z98.890 Other specified postprocedural states; M25.579 Pain in unspecified ankle and joints of unspecified foot; M79.673 Pain in unspecified foot
CPT/HCPCS: 73610; 73630

== ENCOUNTER → 2018-08-13 13:18 | Outpatient (CLI) | payer BC, SELFPAY ==
[2018-08-13 13:45] LABS: Blood Urea Nitrogen 17 mg/dL (7-18); Creatinine,Serum 1.11 mg/dL (0.55-1.02); Estimated Glomerular Filt Rate 52 ml/min (>60); GFR (African American) 63 ML/MIN (>60)
--- NOTE | 2018-08-13 14:19 | MR_ITS ---
MR ankle LT wo/w con CLINICAL INDICATION: Left ankle pain/brain of the anterior talofibular ligament, instability. Prior foot reconstruction surgery ITS.REASON: ankle pain ORDERING PHYSICIAN: Aure Bee DPM PATIENT AGE: 52 years Comparison: 07/02/2018 FINDINGS: There is considerable artifact from the patient's bony hardware within the foot. Evaluation of the midfoot is therefore extremely limited. There is some increase in T2 signal involving the anterior aspect of the calcaneus as well as the cuboid and talus. This however could be related to artifact. No evidence of acute fracture of the ankle joint. No evidence of avascular necrosis of the talar dome. Small ankle joint effusion and a small amount fluid is also noted at the posterior talocalcaneal region. There is thinning of the anterior talofibular ligament with discontinuity posteriorly consistent with at least a partial tear of the ATFL. The anterior tibiofibular, posterior tibiofibular, posterior talofibular ligaments appear intact. The deltoid ligament also appears intact. The Achilles tendon, posterior tibialis tendon, flexor hallucis longus and flexor digitorum longus tendons appear intact. The anterior extensor tendons appear intact. There is some minimal flattening of the peroneal brevis just inferior to the tip of the lateral malleolus which may be seen with partial tear. IMPRESSION: 1. Thinning of the ATFL this continuity posteriorly consistent with at least a partial tear of the ATFL 2. Artifact from postsurgical changes. 3. Ankle joint effusion. 4. Mild deformity with flattening of the Proteus brevis tendon inferior to the tip of the lateral malleolus which may indicate a partial tear of the peroneal brevis.
== END ==
PROVIDERS: Visit Provider Podiatrist
DX: M25.372 Other instability, left ankle (principal); M14.672 Charcot's joint, left ankle and foot; M25.572 Pain in left ankle and joints of left foot
CPT/HCPCS: 36415; 73723; 82565; 84520; A9576

== ENCOUNTER → 2018-08-19 14:58 | Outpatient (CLI) | payer BC, SELFPAY ==
--- NOTE | 2018-08-19 15:20 | XR_ITS ---
XR chest 2V HISTORY: ITS.REASON: HTN, ORDERING PHYSICIAN: Aure eBe DPM PATIENT AGE: 52 years COMPARISON: 08/20/2017 FINDINGS: The cardiomediastinal silhouette and pulmonary vascularity are within normal limits. The lungs are clear without infiltrates, suspicious nodules, or pleural effusions. No acute bony abnormalities. IMPRESSION: Negative chest, no acute finding
[2018-08-19 16:04] LABS: Basophils % 0.4 % (0.1-2.0); Eosinophils # 0.2 K/mm3 (0.0-0.4); Eosinophils % 2.4 % (0.1-12.0); Hematocrit 38.3 % (37.0-47.0); Hemoglobin 13.1 g/dL (12.2-16.2); Lymphocytes # 2.9 K/mm3 (0.7-4.5); Lymphocytes % 40.4 % (10-50); Mean Corpuscular HGB Conc 34.2 g/dL (31.8-35.4); Mean Corpuscular Hemoglobin 29.8 pg (27.0-31.2); Mean Corpuscular Volume 87.3 fl (81-99); Mean Platelet Volume 9.1 fl (7.4-10.4); Monocytes # 0.3 K/mm3 (0.1-1.0); Monocytes % 4.4 % (1.7-9.3); Neutrophils # 3.8 K/mm3 (1.8-7.8); Neutrophils % 52.4 % (37.0-80.0); Platelet Count 237 K/mm3 (142-424); Red Blood Count 4.39 M/mm3 (4.20-5.40); Red Cell Distribution Width 13.8 % (11.5-17.5); White Blood Count 7.2 K/mm3 (4.8-10.8)
[2018-08-19 17:56] LABS: Alanine Aminotransferase 14 U/L (12-78); Albumin Level 2.9 gm/dL (3.4-5.0); Albumin/Globulin Ratio 0.7 (1.1-1.8); Alkaline Phosphatase 90 U/L (46-116); Anion Gap 16.2 mEq/L (5-15); Aspartate Amino Transferase 12 U/L (15-37); Bilirubin,Total 0.2 mg/dL (0.2-1.0); Blood Urea Nitrogen 18 mg/dL (7-18); Calcium 8.7 mg/dL (8.5-10.1); Carbon Dioxide 25 mmol/L (21.0-32.0); Chloride 100 mmol/L (98-107); Creatinine,Serum 1.16 mg/dL (0.55-1.02); Estimated Glomerular Filt Rate 49 ml/min (>60); GFR (African American) 60 ML/MIN (>60); Glucose 198 mg/dL (74-106); Potassium 4.2 mmoL/L (3.5-5.1); Sodium 137 mmol/L (136-145); Total Protein,Serum 6.9 gm/dL (6.4-8.2)
[2018-08-22 08:06] LABS: Vitamin D 25 Hydroxy 31.2 ng/mL (30.0-100.0)
== END ==
PROVIDERS: PCP Pediatrics; Visit Provider Podiatrist
DX: Z01.818 Encounter for other preprocedural examination (principal); E11.610 Type 2 diabetes mellitus with diabetic neuropathic arthropathy; M25.572 Pain in left ankle and joints of left foot
CPT/HCPCS: 36415; 71046; 80053; 82652; 85025; 93005

== ENCOUNTER 2018-09-03 07:39 | Observation (INO) ==
[2018-09-03 08:23] LABS: INR 0.95 (0.9-1.1); Prothrombin Time 9.9 seconds (9.4-11.8)
--- NOTE | 2018-09-03 08:27 | Progress Note ---
[facility] Anesthesia Checklist - Patient Identification Patient Identification: Arm Band, Verbal (Name & ) - Structural Data Admitted From: Home Planned Operative Procedure/s: left ankle repair Consent for Planned Operative Procedure(s) Verified: Yes Verified Documents: History and Physical - NPO Status Verified Time NPO: 00:00 - Additional verifications Patient : No Anesthesia Reactions: No Hx Blood Transfusions: No Blood Transfusion Reaction: No Cephalosporin Allergy: No Previous Colonoscopy: No - Cardiovascular Assessment Heart Sounds: S1 & S2 Pulse Strength: Baseline Pulse Rhythm: Regular Peripheral Edema: No - Airway Assessment C-Spine Mobility Assessed: Yes TMJ Mobility Assessed: Yes Dentition: Good Dentition - Neurological Assessment Level of Consciousness: Awake, Alert, Appropriate Hx Seizures: No Numbness or tingling in extremities: No - Anesthesia Plan Anesthesia Risk discussed: Yes Anesthesia Plan: Verified ASA Class: III Anesthesia Type: General [facility] History I have reviewed the patient's past medical history: Yes Medical History: Reports:: Asthma, Diabetes Mellitus Type 2, Gastroesophageal Reflux Disease(GERD), Hyperlipidemia, Hypertension, Migraine Denies:: Atrial Fibrillation, Cancer, Chronic Obstructive Pulmonary Disease (COPD), Coronary Artery Disease, Cerebrovascular Accident, Diabetes Mellitus Type 1, Internal Pacemaker, MRSA, Myocardial Infarction, Seizures *Have you ever received a pneumonia vaccine?: No *Have you received a flu vaccine this season?: Yes Other Medical History: Denies: Blood Transfusion Reaction Laterality Cases: Bilateral: Carpal Tunnel Release, Other Other Surgeries: Yes: Cholecystectomy, Colonoscopy, , Hysterectomy- Total, Other. No: Pacemaker Amputation: No Fractures: Yes - *Social History Educational Level: Completed College Smoking Status: Never smoker Tobacco Type: cigarettes #Yrs smoked (if former smoker): 15 Alcohol Intake: never Alcohol Intake Frequency:: holidays/special occasions only Substance Use Type: denies use *Occupational Status:: employed Housing: house Household Members: spouse, family *Travel in the last 8 weeks: None - Psychiatric History Expresses thoughts of harming self/others: None Suicide Plan Description: No Plan Family Hx:: Cancer, Diabetes, Heart Attack, Hypertension, Asthma
--- NOTE | 2018-09-03 10:47 | Operative Note ---
Date of procedure: 09/03/18 Pre-op Diagnosis:: 1. Type 2 diabetes mellitus with Charcot's joint of left foot E11.610 2. Left ankle instability M25.372 3. Sprain of anterior talofibular ligament of left ankle 4. Impingement of left ankle joint M25.872 5. Edema of left lower extremity R60.0 6. Tear of peroneal tendon, left 7. Bone marrow edema D75.89 8. Left ankle effusion M25.472 9. Synovitis of left ankle M65.9 10. Essential hypertension I10 11. Obesity, Class II, BMI 35-39.9 E66.9 Post-op Diagnosis:: Same Procedure performed:: 1. Left Charcot Reconstruction: Ankle Arthrodesis 2. Left STJ Arthrodesis 3. Left application of external fixation device 4. Left peroneal tendon (brevis) repair, peronus longus debridement 5. Left excision of lipoma, ankle 6. Left tendo Achilles lengthening (CLINT) 7. Left ankle and foot synovectomy 8. Application of amniotic membrane graft Surgeon:: Aure Bee DPM CLINICAL ORTHOPTIST:: Mario Peres Anesthesia: regional, LMA Estimated blood loss (mL): 40 Clinical Note:: Left Ankle Charcot Neuroarthropathy: I had a long discussion with the patient about the etiology and treatment of Charcot foot. We discussed the progression of Charcot and how that puts her at high risk for medial arch collapse, foot deformities, ulceration, infection leading to amputation, loss of digits, part of the foot or even the leg. She verbalizes understanding. I think what happened was her twisting injury on the left ankle put strain and induced trauma to the left foot and ankle. She has increased pain and swelling. The peroneal tendon tear is causing weakness and she is losing the ability to obdulia, causing that deformity. She has previous Charcot stabilization surgery and the midfoot/medial column is unable to compensate so she is overloading and try to compensate through the medial ankle. On the MRI there is obvious fluid as well as bone marrow edema and stress to the medial malleolus. Patient is starting to have early radiographic and imaging signs of Charcot collapse. The ankle has ligamentous instability secondary to ankle sprain but no subluxation or bone fragmentation. The patient and I had a long discussion about her treatment course. We discussed the conservative treatment option of strict nonweightbearing to the left lower extremity and in a cast. The nonweightbearing may another 8-12 weeks. We did d tabbyuss surgical intervention with the application of an external fixator and Charcot ankle reconstruction. The patient understands post op she will be NWB. She also understands that she will need to have bracing and physical therapy. After a long discussion with the patient in regards to the conservative versus surgical treatment for the Charcot deformity, the patient has elected to proceed with surgery because shes continue to have pain and worsening symptoms affecting daily activities. The patient has been instructed on the planned procedure, all risk versus benefits of the procedure discussed. These include but are not limited to: bleeding, infection, nerve and blood vessel damage, need for further surgery, delay in healing of soft tissue or bone, failure of bones to heal, non-union, mal-union, failure of the implant, broken pins, over lengthening of the tendon, prolonged pain and recovery, prolonged swelling, CPRS/RSD, DVT, anesthetic complications and even . No guarantees were given. All questions fully answered. The patient verbalized understanding and agreed to proceed with surgery. Written consent was obtained. Plan for 23 hr observation for pain control and PT training. Plan to discharge home not SNF. Patient has wc, walker, RKS. Will need Rx pain, nauseous, DVT ppx. Medical clearance per Dr. Juan Tabares. Operative findings:: Lipoma noted to the left ankle. Peroneus longus tendon had synovitis. The Peroneus brevis tendon had longitudinal tearing and was flattened with synovitis noted as well. Ankle and subtalar joint synovitis with degenerative Charcot arthritic changes to the joint. Severe cartilage damage and wearing of the anterior medial ankle gutter. Due to the patients body habitus (morbid obesity), this case took 1.5 hours longer than usual. The case was more tedious due to the Charcot deformity, quality of bone, excessive subcutaneous fat layers and fibrotic scar tissue. The case was also complicated by the bone quality which was soft and crumbly, it was difficult to hold reduction with the fixation. Operative note:: On this date and time patient was deemed an appropriate surgical candidate. Anesthesia performed a pre-op regional popliteal nerve block. With informed consent signed, the patient was taken to the operating theater. The patient was positioned supine. General anesthesia was induced. Tourniquet was applied to the left thigh at 300 mmHg. Left Tendon Achilles Lengthening: The left lower extremity was prepped and draped in a normal sterile fashion. Attention was directed to the posterior leg. Three stab incisions where made overlying the Achilles. Utilizing the three holes, percutaneous glenn-section of the Achilles was performed with the foot maximally dorsiflexed. Release of the Achilles contracture was noted. The incisions were flushed with copious sterile saline and the wound was closed with 3-0 Nylon. Left Foot Charcot Reconstruction: Intraoperative fluoroscopy was utilized to take x-rays of both the foot and ankle. Attention was directed to the medial foot where a dorsal linear incision was well-healed from previous reconstruction. The 2 beams intramedullary as well as the medial column plate were left intact. Left Ankle Arthrodesis: Attention was directed to the lateral aspect of the foot and ankle. A lazy S curvilinear incision was mapped out extending proximal and posterior to the fibula along the course of the peroneal tendons and dorsal extending over the fourth fifth met base cuboid junction. Dissection was carried through skin to subcutaneous tissue with care taken to maintain surgical hemostasis and safely retract neurovascular structures. Sural nerve was identified and retracted inferiorly throughout the procedure. Dissection was carried through deep fascia to the level of the bone. The EDB was torn and attentuated. There was dorsal spurring and cartilage wear noted along the ankle joint, anterior process of calcaneus to the CCJ. The talus had severe erosions. Arthritic degenerative changes noted throughout the STJ, CC joints. The ankle joint was also visualized and there is dorsal cartilage noted. The ATFL was torn and and CFL was attenuated. Peroneal tendons visualized and brevis flattened, torn and longus had synovitis. Left Foot and Ankle Synovectomy: It should be noted that during the dissection and opening up of the ankle joint, STJ and peroneal sheath there was brown fluid noted from the joints. It appeared to look like dark synovitis. A piece of thick fibrotic peroneal tissue sent as a specimen. Left Excision of Lipoma: He should also be noted there was a large fatty mass on the lateral ankle. It was debrided and sent as a specimen. Attention was then directed to the anterior ankle where a linear incision was mapped out medial to the tibialis anterior tendon. Dissection was carried out into a layered fashion until the joint was exposed with care taken to retract neurovascular structures. Medial cartilage erosion noted to the talus. There is synovitis and scar tissue in the medial ankle gutter. Both the ankle and STJ were distracted and an osteotome and curette was then used to resect the remaining cartilage down to the level of good healthy bleeding bone. Once all joints have been prepped to the level good healthy bleeding bone the wound was flushed with copious amounts of normal sterile saline. Intraoperative fluoroscopy was utilized to check position. Temporary fixation was inserted to check reduction. Intraoperative fluoroscopy was utilized and reduction was deemed to be adequate. At this point temporary fixation was removed. A 2-0 drill bit was then used to further fenestrate the joints down to the level good healthy bleeding bone. The quality of the patient's bone was very poor. There was significant fragmentation and crumbling noted to the bones. When the temporary fixation was placed into the plate it was easily removed by hand due to the quality of the bone. Because of the poor quality of bone it was decided to insert extra fixation. At this point, the ankle joint was reduced and Darco cannulated 6.5mm screw was inserted. Adequate compression of ankle joint noted. An anterior ankle plate was then inserted and fixated with locking and nonlocking screws. Good compression and reduction of the ankle was noted. Next the subtalar joint was reduced and 2 partially threaded cannulated 7.0 mm beams were inserted from posterior to anterior compressing the STJ. Calcaneal axial, lateral, ankle views were obtained and deemed to be appropriate in terms of reduction and fixation. The wound was flushed with copious amounts of normal sterile saline. Left Peroneal Brevis Repair, Peroneus Longus Debridement, Synovectomy: Attention was directed to the lateral incision where the peroneal brevis tendon was noted to be very degenerate, flattened as well as torn longitudinally. The tendon was very stretched out. A portion of the peroneus brevis tendon at the level of the fibula malleolus was transected and send to pathology as a specimen. Synovitis was noted around the tendon sheath. It was debrided. Peroneus longus had thickness and synovitis as well. Utilizing 4-0 Vicryl and Prolene the tears were repaired in a baseball fashion. Final intraoperative fluoroscopy was utilized. Application of Amniotic Membrane: Deep closure was performed with 2-0 Vicryl on both the anterior and lateral incisions. After deep closure, the amniotic membrane was inserted over the deep fascia. The subcutaneous layer was closed with 2-0 and 3-0 Vicryl, and more membrane was inserted prior to skin closure. The skin was closed with 3-0 nylon in a Horizontal mattress fashion and reinforced with mic. The tourniquet was deflated at 100 minutes. Immediate hyperemic response was noted to the digits upon deflation of the tourniquet. The tourniquet was left deflated for over 30 minutes. The tourniquet was reinflated one more time during the case and left up for 90 minutes, after it was deflated immediate hyperemic response was noted to the digits. The wounds were cleansed. Left foot application of External fixation device: A [employer] salvation external fixation device was utilized. The frame had been prebuilt with a footplate, two full leg rings and a 5/8th ring. Leg holders were positioned and the leg placed in the frame. Attention was directed to the lateral calcaneus where an olive wire was positioned from the inferior lateral calcaneus and driven to the medial inferior calcaneus. The calcaneus felt soft in texture. Next a second olive wire was driven from the medial calcaneus into the lateral calcaneus. Attention was directed proximally to the proximal most ring where a wire was driven from the anterior face of the tibia lateral to medial and a second wire driven from medial to lateral. The wires were tensioned and some stability was noted to the frame. Next 2 smooth wires were used this time on the distal tibia from medial to lateral lateral to medial in an "X" pattern. The leg wires were tensioned to 120. Good stability of the frame was noted. Next a smooth wire was positioned from the medial first metatarsal capturing the second metatarsal and exiting dorsal lateral on the midfoot. Positioning of this wire was modified due to medial column plate and beam and intramedullary. Similarly another wire was placed from the fifth metatarsal angle proximal medial capturing the fifth fourth metatarsal prior to exiting. The distal foot wires were then tensioned to 90. Adequate position of the foot within the frame was noted. The skin was not touching or rubbing against the frame in any plane. Intraoperative fluoroscopy was utilized to obtain x-rays which showed adequate position of foot within the frame. Wires were tightened. Xeroform applied around the pin sites and a dry sterile dressing was applied to the foot. The foot plate was attached. The patient was awoken from anesthesia and transferred to recovery with vital signs stable and neurovascular status intact. Due to the patients body habitus (morbid obesity), this case took 1.5 hours longer than usual. The case was more tedious due to the Charcot deformity, quality of bone, excessive subcutaneous fat layers and fibrotic scar tissue. The case was also complicated by the bone quality which was soft and crumbly, it was difficult to hold reduction with the fixation. Materials: [employer] Salvation (Charcot external fixator) Merrill wires x 4, smooth K wires x 4 7.0mm fusion beam partially threaded x 2 6.5mm cannulated screw x 1 [employer] anterior ankle fusion plate + non and locking screws x 5 Augment injectable [employer] Amnio graft Discharge/Plan: Patient will be admitted for 23 hour observation for pain control and medical mgmt Patient is to maintain dressing clean dry and intact. Ice behind the left knee and left lower extremity with DME assistance (walker, wheelchair). Obtain post op films, left calc, ankle and foot, 3 views. Consult: Dr. Villalba for medical mgmt of insulin, IV fluids and blood pressure. PT in the am for gait training and transitions. Plan to d/c to home tomorrow after PT session. Tourniquet time (min): 190 Condition: stable Disposition: observation Specimens:: 1. Left ankle lipoma 2. Left peroneus brevis tendon Complications:: None
--- NOTE | 2018-09-03 10:48 | History & Physical Report ---
*Admission Date: 09/03/18 *Chief complaint: Left Ankle Charcot, Peroneal tendon tear, Ankle instability *History of present illness: Ms. Guallpa is a pleasant 52-year-old female who presents for admission, 23-hour observation status post left Charcot reconstruction. Patient is a diabetic with peripheral neuropathy with significant past medical history including hypertension, hyperlipidemia, recent eye surgery. Patient presented in June with a left swollen ankle after twisting it tripping on her cat. It resulted in a grade 3 ankle sprain. She ended up having another twisting injury subsequently failed conservative care. MRI was taken which showed tear in the peroneus brevis tendon, tear of the lateral ankle ligaments as well as Charcot degenerative changes to the medial ankle. Medical team consults to include Dr. Annie Villalba. [facility] History I have reviewed the patient's past medical history: Yes Medical History: Reports:: Asthma, Diabetes Mellitus Type 2, Gastroesophageal Reflux Disease(GERD), Hyperlipidemia, Hypertension, Migraine Denies:: Atrial Fibrillation, Cancer, Chronic Obstructive Pulmonary Disease (COPD), Coronary Artery Disease, Cerebrovascular Accident, Diabetes Mellitus Type 1, Internal Pacemaker, MRSA, Myocardial Infarction, Seizures *Have you ever received a pneumonia vaccine?: No *Have you received a flu vaccine this season?: Yes Other Medical History: Denies: Blood Transfusion Reaction Laterality Cases: Bilateral: Carpal Tunnel Release, Other Other Surgeries: Yes: Cholecystectomy, Colonoscopy, , Hysterectomy- Total, Other. No: Pacemaker Amputation: No Fractures: Yes - *Social History Educational Level: Completed College Smoking Status: Never smoker Tobacco Type: cigarettes #Yrs smoked (if former smoker): 15 Alcohol Intake: never Alcohol Intake Frequency:: holidays/special occasions only Substance Use Type: denies use *Occupational Status:: employed Housing: house Household Members: spouse, family *Travel in the last 8 weeks: None - Psychiatric History Expresses thoughts of harming self/others: None Suicide Plan Description: No Plan Family Hx:: Cancer, Diabetes, Heart Attack, Hypertension, Asthma Review of Systems - Review of Systems Review of systems:: pertinent systems reviewed and negative unless documented below - Constitutional Denies chills - Eyes Reports change in vision - ENT Denies abnormal hearing - *Cardiovascular Denies chest pain, Denies shortness of breath - *Respiratory Denies chest congestion, Denies shortness of breath - *Gastrointestinal Denies abdominal pain - *Genitourinary Denies abnormal periods - *Musculoskeletal Reports limited joint movement - Integumentary/Breasts Denies skin ulcer - *Neurologic Reports unsteadiness, Reports localized weakness, Reports tingling/numbn ess/burning sensations Meds Home Medications Medication Instructions Recorded Confirmed Type albuterol sulfate HFA 90 1 puff INHALATION DAILY PRN 17 06/04/17 09/03/18 History mcg/actuation aerosol inhaler Days #18 amitriptyline 25 mg tablet 25 mg PO DAILY 30 Days #30 06/04/17 09/03/18 History dulaglutide 1.5 mg/0.5 mL 0.5 % SUB-Q WEEKLY 28 Days #2 06/04/17 09/03/18 History subcutaneous pen injector escitalopram 10 mg tablet 10 mg PO DAILY 30 Days #30 06/04/17 09/03/18 History estradiol 2 mg tablet 2 mg PO DAILY 30 Days #30 06/04/17 09/03/18 History fluticasone furoate 200 1 puff INHALATION DAILY 30 Days #60 06/04/17 09/03/18 History mcg-vilanterol 25 mcg/dose inhalation powder fluticasone propionate 50 2 spry INTRANASAL DAILY 30 Days #16 06/04/17 09/03/18 History mcg/actuation nasal spray,suspension insulin aspar prot-insulin aspart 45 units SUB-Q BID 16 Days #15 06/04/17 08/19/18 History 100 unit/mL (70-30) subcutaneous pen metformin ER 500 mg 500 mg PO BID 30 Days #60 06/04/17 09/03/18 History tablet,extended release 24 hr montelukast 10 mg tablet 10 mg PO DAILY 30 Days #30 06/04/17 09/03/18 History ibuprofen 800 mg tablet 800 mg PO BID #60 tab 06/12/17 09/03/18 Rx meperidine 50 mg tablet 50 mg PO Q6HP PRN 5 Days #30 07/30/17 09/03/18 History Ergocalciferol (Vitamin D2) 400 unit PO DAILY 08/19/17 09/03/18 History [Vitamin D] Melatonin 10 mg PO DAILY 08/19/17 09/03/18 History Vitamin E 400 unit PO DAILY 08/19/17 09/03/18 History pregabalin 75 mg capsule 150 mg PO TID 30 Days #180 cap 09/12/17 09/03/18 History linagliptin 5 mg tablet 5 mg PO DAILY 30 Days #30 11/19/17 09/03/18 History omeprazole 20 mg capsule,delayed 20 mg PO DAILY 30 Days #30 11/19/17 09/03/18 History release metoprolol succinate ER 25 mg 25 mg PO DAILY 02/13/18 09/03/18 History capsule sprinkle, ext. release 24 hr diclofenac 1 % topical gel 4 g TOPICAL QID #30 g 04/17/18 09/03/18 Rx sulfamethoxazole 800 1 tab PO BID #28 tab 06/18/18 09/03/18 Rx mg-trimethoprim 160 mg tablet methylprednisolone 4 mg tablets in See Rx Instructions PO PER PKG DIR 07/02/18 09/03/18 Rx a dose pack #21 tab spironolactone 25 mg tablet 25 mg PO DAILY #30 tab 08/19/18 09/03/18 History Aspirin 81 mg PO DAILY 09/03/18 09/03/18 History Allergies Allergy/AdvReac Type Severity Reaction Status Date / Time ranitidine [RANITIDINE] Allergy Severe Anaphylaxis Verified 09/03/18 07:49 adhesive tape [ADHESIVE TAPE] Allergy Intermediate I-RASH Verified 09/03/18 07:49 bupropion [BUPROPION] Allergy Intermediate I-HIVES Verified 09/03/18 07:49 butorphanol [BUTORPHANOL] Allergy Intermediate I-HIVES Verified 09/03/18 07:49 calcium [From DHEA] Allergy Intermediate I-HIVES Verified 09/03/18 07:49 calcium carbonate [From DHEA] Allergy Intermediate I-HIVES Verified 09/03/18 07:49 codeine [CODEINE] Allergy Intermediate I-HIVES Verified 09/03/18 07:49 hydromorphone [HYDROMORPHONE] Allergy Intermediate I-HIVES Verified 09/03/18 07:49 prasterone (DHEA) [From DHEA] Allergy Intermediate I-HIVES Verified 09/03/18 07:49 sumatriptan [From IMITREX] Allergy Intermediate I-HIVES Verified 09/03/18 07:49 hydrocodone [HYDROCODONE] Allergy Unknown I-ITCHING Verified 09/03/18 07:49 morphine [MORPHINE] Allergy Unknown HEADACHE Verified 09/03/18 07:49 oxycodone [From Percocet] Allergy Hives Verified 09/03/18 07:49 Exam Vital signs and Labs for Last 24 Hours: Temp Pulse Resp BP Pulse Ox 97.6 F 72 18 160/74 H 97 09/03/18 08:01 09/03/18 08:01 09/03/18 08:01 09/03/18 08:01 09/03/18 08:01 Laboratory Results - last 24 hr 09/03/18 08:06: PT 9.9, INR 0.95 09/03/18 09:00: Urine Color Yellow, Urine Appearance Clear, Urine pH 6.0, Ur Specific [place] 1.015, Urine Protein Trace, Urine Glucose (UA) Negative, Urine Ketones Negative, Urine Blood Trace-l, Urine Nitrate Negative, Urine Bilirubin Negative, Urine Urobilinogen 0.2, Ur Leukocyte Esterase Negative, Urine RBC None, Urine WBC Occasional, Ur Squamous Epith Cells Occasional, Urine Bacteria None I & O for Last 24 hours: Intake & Output 08/31/18 09/01/18 09/02/18 09/03/18 11:59 11:59 11:59 11:59 Weight 219 lb 15.988 oz - *Routine HEENT Exam Head: Present: normocephalic Eye: Present: PERRL ENT: Present: mucous membranes moist - *Routine Neck Exam Present: supple - *Routine Respiratory Exam Present: accessory muscle use, CTA bilaterally - *Routine Cardiovascular Exam Present: RRR - *Routine Abdominal Exam Present: soft. Absent: guarding - *Routine Rectal Exam Patient deferred: visual exam - *Routine Exam Patient deferred: external exam - *Routine Extremities Exam Present: pulses intact, normal capillary refill - *Routine Skin Exam Present: warm. Absent: erythema - *Routine Neurological Exam Present: alert, oriented X3, moving all extremities Assessment and Plan (1) Peroneal tendon tear Current visit: Yes Status: Acute Category: Medical Code(s): S86.319A - Strain of muscle(s) and tendon(s) of peroneal muscle group at lower leg level, unspecified leg, initial encounter (2) Sprain of anterior talofibular ligament of left ankle Current visit: Yes Status: Acute Category: Medical Code(s): S93.492A - Sprain of other ligament of left ankle, initial encounter (3) Status post surgical manipulation of ankle joint Current visit: Yes Status: Acute Category: Surgical Code(s): Z98.890 - Other specified postprocedural states (4) Hypertension Current visit: Yes Status: Acute Category: Medical Code(s): I10 - Essential (primary) hypertension (5) Hyperlipidemia Current visit: Yes Status: Acute Category: Medical Code(s): E78.5 - Hyperlipidemia, unspecified (6) Charcot's joint, left ankle and foot Current visit: No Status: Acute Category: Medical Code(s): M14.672 - Charcot's joint, left ankle and foot (7) IDDM (insulin dependent diabetes mellitus) Current visit: No Status: Acute Category: Medical Code(s): E11.9 - Type 2 diabetes mellitus without complications; Z79.4 - 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 Bee Villalba - medical mgmt. Patient is to maintain splint clean dry and intact to LLE. Polar pack/ice behind the knee and elevate on foam ramp or two pillows. Non weight bearing with walker, RKS. Will need Rx for pain. e-Rx Zofran, Lovenox and Motrin 800mg. Obtain post op films, 3 views left foot and ankle. PT session in am, prior to discharge.
--- NOTE | 2018-09-03 15:24 | Pharmacy Consult Notes ---
[facility] Pharmacy VTE Monitoring - Patient Demographics Admission date: 09/03/18 Report Date: 09/03/18 Time: 15:23 Allergies/Adverse Reactions: Patient Allergies ranitidine [RANITIDINE] Allergy (Severe, Verified 09/03/18 07:49) Anaphylaxis adhesive tape [ADHESIVE TAPE] Allergy (Intermediate, Verified 09/03/18 07:49) I-RASH bupropion [BUPROPION] Allergy (Intermediate, Verified 09/03/18 07:49) I-HIVES butorphanol [BUTORPHANOL] Allergy (Intermediate, Verified 09/03/18 07:49) I-HIVES calcium [From DHEA] Allergy (Intermediate, Verified 09/03/18 07:49) I-HIVES calcium carbonate [From DHEA] Allergy (Intermediate, Verified 09/03/18 07:49) I-HIVES codeine [CODEINE] Allergy (Intermediate, Verified 09/03/18 07:49) I-HIVES hydromorphone [HYDROMORPHONE] Allergy (Intermediate, Verified 09/03/18 07:49) I-HIVES prasterone (DHEA) [From DHEA] Allergy (Intermediate, Verified 09/03/18 07:49) I-HIVES sumatriptan [From IMITREX] Allergy (Intermediate, Verified 09/03/18 07:49) I-HIVES hydrocodone [HYDROCODONE] Allergy (Unknown, Verified 09/03/18 07:49) I-ITCHING morphine [MORPHINE] Allergy (Unknown, Verified 09/03/18 07:49) HEADACHE oxycodone [From Percocet] Allergy (Verified 09/03/18 07:49) Hives Height: 1.65 m Weight: 99.79 kg - VTE Risk Labs: VTE Related Lab Results PT 9.9 seconds (9.4-11.8) 09/03/18 08:06 INR 0.95 (0.9-1.1) 09/03/18 08:06 Clinical Trial Participant: No - Prophylaxis VTE Prophylaxis Ordered?: Yes Types of VTE Prophylaxis: IPCS Knee High
--- NOTE | 2018-09-03 17:33 | Progress Note ---
[facility] Anesthesia Record Part II Discharge Time: 17:55 Destination: 2nd floor PACU nurse assessment reviewed?: Yes Patient Condition:: Good Anesthesia Complications:: None Swallowing reflex intact?: Yes Cyanosis?: No
--- NOTE | 2018-09-03 17:33 | Progress Note ---
[facility] Anesthesia Record Part I Intake, IV Amount: 2,900 Estimated blood loss (mL): 30 Urine output (mL): 600 Blood Pressure: 144/77 SaO2: 95 Pulse Rate: 72 Respiratory Rate: 16 Temperature: 98.1 F Patient is:: Drowsy, Stable Stable to PACU at:: 17:25
--- NOTE | 2018-09-03 20:04 | Consult Report ---
*Admission Date: 09/03/18 *Chief complaint: Left Ankle Charcot, Peroneal tendon tear, Ankle instability *History of present illness: Ms. Guallpa is a pleasant 52-year-old female who presents for admission, 23-hour observation status post left Charcot reconstruction. Patient is a diabetic with peripheral neuropathy with significant past medical history including hypertension, hyperlipidemia, recent eye surgery. Patient presented in June with a left swollen ankle after twisting it tripping on her cat. It resulted in a grade 3 ankle sprain. She ended up having another twisting injury subsequently failed conservative care. MRI was taken which showed tear in the peroneus brevis tendon, tear of the lateral ankle ligaments as well as Charcot degenerative changes to the medial ankle. Medical team consults to include Dr. Bee Concepcion (copied from Dr. Bee's H&P). [facility] History Medical History: Reports:: Asthma, Diabetes Mellitus Type 2, Gastroesophageal Reflux Disease(GERD), Hyperlipidemia, Hypertension, Migraine Denies:: Atrial Fibrillation, Cancer, Chronic Obstructive Pulmonary Disease (COPD), Coronary Artery Disease, Cerebrovascular Accident, Diabetes Mellitus Type 1, Internal Pacemaker, MRSA, Myocardial Infarction, Seizures *Have you ever received a pneumonia vaccine?: No *Have you received a flu vaccine this season?: Yes Other Medical History: Denies: Blood Transfusion Reaction Laterality Cases: Bilateral: Carpal Tunnel Release, Other Other Surgeries: Yes: Cholecystectomy, Colonoscopy, , Hysterectomy- Total, Other. No: Pacemaker Amputation: No Fractures: Yes - *Social History Educational Level: Completed College Smoking Status: Never smoker Tobacco Type: cigarettes #Yrs smoked (if former smoker): 15 Alcohol Intake: never Alcohol Intake Frequency:: holidays/special occasions only Substance Use Type: denies use *Occupational Status:: employed Housing: house Household Members: spouse, family *Travel in the last 8 weeks: None - Psychiatric History Expresses thoughts of harming self/others: None Suicide Plan Description: No Plan Family Hx:: Cancer, Diabetes, Heart Attack, Hypertension, Asthma Review of Systems - Constitutional Denies chills, Denies fever(s), Denies headache(s), Denies lack of energy - Eyes Reports irritation, Denies blurry vision - ENT Denies dry mouth, Denies ear pain, Denies nosebleed, Denies lip swelling - *Cardiovascular Denies chest pain, Denies chest pain at rest, Denies chest pain with activity, Denies shortness of breath, Denies shortness of breath with activity - *Respiratory Denies change in phlegm color, Denies chest congestion, Denies cough, Denies shortness of breath - *Gastrointestinal Denies abdominal pain, Denies constipation, Denies difficulty swallowing - *Genitourinary Denies abnormal vaginal bleeding, Denies difficulty starting urination, Denies urinary incontinence, Denies urinary urgency - *Musculoskeletal Reports limited joint movement (consistent s/p surgery on left ankle), Denies decreased muscle mass - *Neurologic Reports unsteadiness, Reports localized weakness, Reports tingling/numbness/burning sensations, Denies abnormal hearing - Psychiatric Denies abnormal sleep pattern, Denies confusion, Denies depression - Endocrine Denies excessive sweating - Hematologic/Lymphatic Denies easy bleeding - Allergic/Immunologic Denies itchy eyes Meds Home Medications Medication Instructions Recorded Confirmed Type albuterol sulfate HFA 90 1 puff INHALATION DAILY PRN 17 06/04/17 09/03/18 History mcg/actuation aerosol inhaler Days #18 amitriptyline 25 mg tablet 25 mg PO DAILY 30 Days #30 06/04/17 09/03/18 History dulaglutide 1.5 mg/0.5 mL 0.5 % SUB-Q WEEKLY 28 Days #2 06/04/17 09/03/18 History subcutaneous pen injector escitalopram 10 mg tablet 10 mg PO DAILY 30 Days #30 06/04/17 09/03/18 History estradiol 2 mg tablet 2 mg PO DAILY 30 Days #30 06/04/17 09/03/18 History fluticasone furoate 200 1 puff INHALATION DAILY 30 Days #60 06/04/17 09/03/18 History mcg-vilanterol 25 mcg/dose inhalation powder fluticasone propionate 50 2 spry INTRANASAL DAILY 30 Days #16 06/04/17 09/03/18 History mcg/actuation nasal spray,suspension insulin aspar prot-insulin aspart 45 units SUB-Q BID 16 Days #15 06/04/17 08/19/18 History 100 unit/mL (70-30) subcutaneous pen metformin ER 500 mg 500 mg PO BID 30 Days #60 06/04/17 09/03/18 History tablet,extended release 24 hr montelukast 10 mg tablet 10 mg PO DAILY 30 Days #30 06/04/17 09/03/18 History ibuprofen 800 mg tablet 800 mg PO BID #60 tab 06/12/17 09/03/18 Rx meperidine 50 mg tablet 50 mg PO Q6HP PRN 5 Days #30 07/30/17 09/03/18 History Ergocalciferol (Vitamin D2) 400 unit PO DAILY 08/19/17 09/03/18 History [Vitamin D] Melatonin 10 mg PO DAILY 08/19/17 09/03/18 History Vitamin E 400 unit PO DAILY 08/19/17 09/03/18 History pregabalin 75 mg capsule 150 mg PO TID 30 Days #180 cap 09/12/17 09/03/18 History linagliptin 5 mg tablet 5 mg PO DAILY 30 Days #30 11/19/17 09/03/18 History omeprazole 20 mg capsule,delayed 20 mg PO DAILY 30 Days #30 11/19/17 09/03/18 History release metoprolol succinate ER 25 mg 25 mg PO DAILY 02/13/18 09/03/18 History capsule sprinkle, ext. release 24 hr diclofenac 1 % topical gel 4 g TOPICAL QID #30 g 04/17/18 09/03/18 Rx sulfamethoxazole 800 1 tab PO BID #28 tab 06/18/18 09/03/18 Rx mg-trimethoprim 160 mg tablet methylprednisolone 4 mg tablets in See Rx Instructions PO PER PKG DIR 07/02/18 09/03/18 Rx a dose pack #21 tab spironolactone 25 mg tablet 25 mg PO DAILY #30 tab 08/19/18 09/03/18 History Aspirin 81 mg PO DAILY 09/03/18 09/03/18 History Allergies Allergy/AdvReac Type Severity Reaction Status Date / Time ranitidine [RANITIDINE] Allergy Severe Anaphylaxis Verified 09/03/18 07:49 adhesive tape [ADHESIVE TAPE] Allergy Intermediate I-RASH Verified 09/03/18 07:49 bupropion [BUPROPION] Allergy Intermediate I-HIVES Verified 09/03/18 07:49 butorphanol [BUTORPHANOL] Allergy Intermediate I-HIVES Verified 09/03/18 07:49 calcium [From DHEA] Allergy Intermediate I-HIVES Verified 09/03/18 07:49 calcium carbonate [From DHEA] Allergy Intermediate I-HIVES Verified 09/03/18 07:49 codeine [CODEINE] Allergy Intermediate I-HIVES Verified 09/03/18 07:49 hydromorphone [HYDROMORPHONE] Allergy Intermediate I-HIVES Verified 09/03/18 07:49 prasterone (DHEA) [From DHEA] Allergy Intermediate I-HIVES Verified 09/03/18 07:49 sumatriptan [From IMITREX] Allergy Intermediate I-HIVES Verified 09/03/18 07:49 hydrocodone [HYDROCODONE] Allergy Unknown I-ITCHING Verified 09/03/18 07:49 morphine [MORPHINE] Allergy Unknown HEADACHE Verified 09/03/18 07:49 oxycodone [From Percocet] Allergy Hives Verified 09/03/18 07:49 Exam Vital signs and Labs for Last 24 Hours: Temp Pulse Resp BP Pulse Ox 97.8 F 84 18 167/96 H 98 09/03/18 18:46 09/03/18 19:00 09/03/18 19:00 09/03/18 19:00 09/03/18 19:00 Laboratory Results - last 24 hr 09/03/18 08:06: PT 9.9, INR 0.95 09/03/18 09:00: Urine Color Yellow, Urine Appearance Clear, Urine pH 6.0, Ur Specific [place] 1.015, Urine Protein Trace, Urine Glucose (UA) Negative, Urine Ketones Negative, Urine Blood Trace-l, Urine Nitrate Negative, Urine Bilirubin Negative, Urine Urobilinogen 0.2, Ur Leukocyte Esterase Negative, Urine RBC None, Urine WBC Occasional, Ur Squamous Epith Cells Occasional, Urine Bacteria None 09/03/18 17:29: POC Glucose 154 H I & O for Last 24 hours: Intake & Output 09/01/18 09/02/18 09/03/18 09/04/18 11:59 11:59 11:59 11:59 Intake Total 2900 / 2900 Balance 2900 / 2900 Weight 219 lb 15.988 oz 255 lb 2 oz - *Routine HEENT Exam Head: Present: normocephalic Eye: Present: EOMI, PERRL ENT: Present: mucous membranes moist - *Routine Neck Exam Present: supple. Absent: lymphadenopathy - *Routine Respiratory Exam Present: CTA bilaterally (on 3L NC) - *Routine Cardiovascular Exam Present: RRR - *Routine Abdominal Exam Present: soft, normoactive bowel sounds. Absent: tenderness - *Routine Extremities Exam Absent: cyanosis, clubbing Comments: s/p left ankle surgery - *Routine Skin Exam Present: warm. Absent: rash - *Routine Neurological Exam Present: alert, oriented X3 Internal Medicine - CN: Reslt - Labs Labs: Urine 09/03/18 Range/Units 09:00 Urine Color Yellow (Yellow) Urine Appearance Clear (Clear) Urine pH 6.0 (5.0-8.5) Ur Specific [place] 1.015 (1.005-1.030) Urine Protein Trace (Negative) Urine Glucose (UA) Negative (Negative) Assessment and Plan (1) Peroneal tendon tear Current visit: Yes Status: Acute Category: Medical Code(s): S86.319A - Strain of muscle(s) and tendon(s) of peroneal muscle group at lower leg level, unspecified leg, initial encounter (2) Sprain of anterior talofibular ligament of left ankle Current visit: Yes Status: Acute Category: Medical Code(s): S93.492A - Sprain of other ligament of left ankle, initial encounter (3) Status post surgical manipulation of ankle joint Current visit: Yes Status: Acute Category: Surgical Code(s): Z98.890 - Other specified postprocedural states (4) Hypertension Current visit: Yes Status: Acute Category: Medical Code(s): I10 - Essential (primary) hypertension (5) Hyperlipidemia Current visit: Yes Status: Acute Category: Medical Code(s): E78.5 - Hyperlipidemia, unspecified (6) Charcot's joint, left ankle and foot Current visit: No Status: Acute Category: Medical Code(s): M14.672 - Charcot's joint, left ankle and foot (7) IDDM (insulin dependent diabetes mellitus) Current visit: No Status: Acute Category: Medical Code(s): E11.9 - Type 2 diabetes mellitus without complications; 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 Restarted her home meds. She is due for her trulicity today, so I re-ordered that today as well. On SSI for coverage for her excess sugars. Will continue to follow w/ Dr. Bee. Thank you for the consult and allowing me to provide care for this patient.
[2018-09-04 07:03] LABS: Hematocrit 34.8 % (37.0-47.0); Hemoglobin 11.4 g/dL (12.2-16.2); Lymphocytes # 1.8 K/mm3 (0.7-4.5); Lymphocytes % 16.1 % (10-50); Mean Corpuscular HGB Conc 32.8 g/dL (31.8-35.4); Mean Platelet Volume 9.5 fl (7.4-10.4); Monocytes # 0.7 K/mm3 (0.1-1.0); Monocytes % 5.9 % (1.7-9.3); Neutrophils # 8.8 K/mm3 (1.8-7.8); Neutrophils % 77.8 % (37.0-80.0); Platelet Count 211 K/mm3 (142-424); Red Blood Count 3.82 M/mm3 (4.20-5.40); White Blood Count 11.3 K/mm3 (4.8-10.8)
[2018-09-04 07:39] LABS: Albumin Level 2.4 gm/dL (3.4-5.0); Albumin/Globulin Ratio 0.6 (1.1-1.8); Anion Gap 16.3 mEq/L (5-15); Bilirubin,Total 0.2 mg/dL (0.2-1.0); Calcium 7.7 mg/dL (8.5-10.1); Globulin 3.8 gm/dl (1.3-3.2); Total Protein,Serum 6.2 gm/dL (6.4-8.2)
--- NOTE | 2018-09-04 08:19 | Discharge Summary ---
General - General Admission date:: 09/03/18 Discharge date: 09/04/18 HPI HPI: Ms. Guallpa is a pleasant 52-year-old female who presents for admission, 23-hour observation status post left Charcot reconstruction. Patient is a diabetic with peripheral neuropathy with significant past medical history including hypertension, hyperlipidemia, recent eye surgery. Patient presented in June with a left swollen ankle after twisting it tripping on her cat. It resulted in a grade 3 ankle sprain. She ended up having another twisting injury subsequently failed conservative care. MRI was taken which showed tear in the peroneus brevis tendon, tear of the lateral ankle ligaments as well as Charcot degenerative changes to the medial ankle. Medical team consults to include Dr. Annie Villalba. Hospital Course Hospital Course: Hospital course has been relatively uneventful. She has had some pain controlled with Toradol. Patient complains of diarrhea but that has been a long-standing issue which she takes Imodium at home for. Patient denies any new symptoms. She denies N/V, F/C, SOB/CP. Pending another physical therapy session prior to discharge. Objective Vital signs: Temp Pulse Resp BP Pulse Ox 98.4 F 85 18 133/62 91 L 09/04/18 04:00 09/04/18 04:00 09/04/18 04:00 09/04/18 04:00 09/04/18 04:00 no acute distress - *Routine HEENT Exam Head: Present: normocephalic Eye: Present: PERRL ENT: Present: mucous membranes moist - *Routine Neck Exam Present: supple - *Routine Respiratory Exam Present: accessory muscle use, CTA bilaterally - *Routine Cardiovascular Exam Present: RRR - *Routine Abdominal Exam Present: soft. Absent: guarding - *Routine Rectal Exam Patient deferred: visual exam - *Routine Exam Patient deferred: external exam - *Routine Extremities Exam Present: normal capillary refill - *Routine Skin Exam Present: intact, warm - *Routine Neurological Exam Present: alert, oriented X3, moving all extremities - Detailed Lower Extremity Exam Comments: External fixation device and dressing clean dry and intact to the left lower extremity. Capillary fill time within normal limits. No calf or thigh pain noted bilaterally. Results Completed studies during hospitalization [Text1]: X-rays right foot. X-rays left foot and ankle. Labs on day of discharge: Labs from last 24 hours 09/04/18 09/04/18 09/04/18 06:00 06:00 05:54 WBC 11.3 H RBC 3.82 L Hgb 11.4 L Hct 34.8 L MCV 91.0 MCH 29.8 MCHC 32.8 RDW 14.0 Plt Count 211 MPV 9.5 Neut % (Auto) 77.8 Lymph % (Auto) 16.1 [place] % (Auto) 5.9 Eos % (Auto) 0.0 L Baso % (Auto) 0.0 L Neut # (Auto) 8.8 H Lymph # (Auto) 1.8 [place] # (Auto) 0.7 Eos # (Auto) 0.0 Baso # (Auto) 0.0 PT INR Sodium 137 Potassium 4.3 Chloride 103 Carbon Dioxide 22 Anion Gap 16.3 H BUN 23 H Creatinine 1.61 H Estimated Creat Clear 37 Estimated GFR 34 L Est GFR ( Amer) 41 L Glucose 304 H POC Glucose 295 H Calcium 7.7 L Total Bilirubin 0.2 AST 47 H ALT 16 Alkaline Phosphatase 75 Total Protein 6.2 L Albumin 2.4 L Globulin 3.8 H Albumin/Globulin Ratio 0.6 L Urine Color Urine Appearance Urine pH Ur Specific [place] Urine Protein Urine Glucose (UA) Urine Ketones Urine Blood Urine Nitrate Urine Bilirubin Urine Urobilinogen Ur Leukocyte Esterase Urine RBC Urine WBC Ur Squamous Epith Cells Urine Bacteria Stl Aeromonas (PCR) Stl C. cayetanensis PCR Stool Rotavirus (PCR) Stl Adenov F 40/41 PCR Stool Astrovirus (PCR) Stool Campylobacter PCR Stl C.difficile Tox PCR Stool Cryptosporidium PCR Stl E.coli Shiga Tox PCR Stool E coli O157 PCR Stl Enterotoxigenic E PCR Stool EPEC (PCR) Stool EAEC (PCR) Stl E. histolytica PCR Stool Giardia Lamblia PCR Stool Salmonella PCR Stool Sapovirus (PCR) Stl P. shigelloides PCR Stl Shigella/EIEC PCR St Y.enterocolitica PCR Stool Vibrio (PCR) Stl Vibrio cholerae PCR Stl Norovirus GI/GII PCR 09/03/18 09/03/18 09/03/18 21:35 20:50 17:29 WBC RBC Hgb Hct MCV MCH MCHC RDW Plt Count MPV Neut % (Auto) Lymph % (Auto) [place] % (Auto) Eos % (Auto) Baso % (Auto) Neut # (Auto) Lymph # (Auto) [place] # (Auto) Eos # (Auto) Baso # (Auto) PT INR Sodium Potassium Chloride Carbon Dioxide Anion Gap BUN Creatinine Estimated Creat Clear Estimated GFR Est GFR ( Amer) Glucose POC Glucose 260 H 154 H Calcium Total Bilirubin AST ALT Alkaline Phosphatase Total Protein Albumin Globulin Albumin/Globulin Ratio Urine Color Urine Appearance Urine pH Ur Specific [place] Urine Protein Urine Glucose (UA) Urine Ketones Urine Blood Urine Nitrate Urine Bilirubin Urine Urobilinogen Ur Leukocyte Esterase Urine RBC Urine WBC Ur Squamous Epith Cells Urine Bacteria Stl Aeromonas (PCR) Not detected Stl C. cayetanensis PCR Not detected Stool Rotavirus (PCR) Not detected Stl Adenov F 40/41 PCR Not detected Stool Astrovirus (PCR) Not detected Stool Campylobacter PCR Not detected Stl C.difficile Tox PCR Detected A Stool Cryptosporidium PCR Not detected Stl E.coli Shiga Tox PCR Not detected Stool E coli O157 PCR Not detected Stl Enterotoxigenic E PCR Not detected Stool EPEC (PCR) Not detected Stool EAEC (PCR) Not detected Stl E. histolytica PCR Not detected Stool Giardia Lamblia PCR Not detected Stool Salmonella PCR Not detected Stool Sapovirus (PCR) Not detected Stl P. shigelloides PCR Not detected Stl Shigella/EIEC PCR Not detected St Y.enterocolitica PCR Not detected Stool Vibrio (PCR) Not detected Stl Vibrio cholerae PCR Not detected Stl Norovirus GI/GII PCR Not detected 09/03/18 09/03/18 09:00 08:06 WBC RBC Hgb Hct MCV MCH MCHC RDW Plt Count MPV Neut % (Auto) Lymph % (Auto) [place] % (Auto) Eos % (Auto) Baso % (Auto) Neut # (Auto) Lymph # (Auto) [place] # (Auto) Eos # (Auto) Baso # (Auto) PT 9.9 INR 0.95 Sodium Potassium Chloride Carbon Dioxide Anion Gap BUN Creatinine Estimated Creat Clear Estimated GFR Est GFR ( Amer) Glucose POC Glucose Calcium Total Bilirubin AST ALT Alkaline Phosphatase Total Protein Albumin Globulin Albumin/Globulin Ratio Urine Color Yellow Urine Appearance Clear Urine pH 6.0 Ur Specific [place] 1.015 Urine Protein Trace Urine Glucose (UA) Negative Urine Ketones Negative Urine Blood Trace-l Urine Nitrate Negative Urine Bilirubin Negative Urine Urobilinogen 0.2 Ur Leukocyte Esterase Negative Urine RBC None Urine WBC Occasional Ur Squamous Epith Cells Occasional Urine Bacteria None Stl Aeromonas (PCR) Stl C. cayetanensis PCR Stool Rotavirus (PCR) Stl Adenov F 40/41 PCR Stool Astrovirus (PCR) Stool Campylobacter PCR Stl C.difficile Tox PCR Stool Cryptosporidium PCR Stl E.coli Shiga Tox PCR Stool E coli O157 PCR Stl Enterotoxigenic E PCR Stool EPEC (PCR) Stool EAEC (PCR) Stl E. histolytica PCR Stool Giardia Lamblia PCR Stool Salmonella PCR Stool Sapovirus (PCR) Stl P. shigelloides PCR Stl Shigella/EIEC PCR St Y.enterocolitica PCR Stool Vibrio (PCR) Stl Vibrio cholerae PCR Stl Norovirus GI/GII PCR DS: Diagnosis - Discharge Diagnosis (1) Peroneal tendon tear Status: Acute (2) Sprain of anterior talofibular ligament of left ankle Status: Acute (3) Status post surgical manipulation of ankle joint Status: Resolved (4) Hypertension Status: Chronic (5) Hyperlipidemia Status: Chronic (6) Charcot's joint, left ankle and foot Status: Chronic (7) IDDM (insulin dependent diabetes mellitus) Status: Chronic Discharge Plan - Patient Discharge Instructions ACTIVITY: Limited activity (NWB LLE) DIET: advance to your usual diet Additional Instructions: Patient is to maintain dressing clean dry and intact. Ice (polar pack) behind the left knee and elevate on two pillows. Non weight bearing to the left lower extremity with DME assistance (walker, rolling knee scooter). Continue incentive spirometer q1h. Rx for Toradol 30 po #30 and Motrin 800mg given. e-Rx given for Keflex 500mg, Zofran and Lovenox 40 #20. Follow up in one week as scheduled . - Follow up Plan Follow up with: Aure Bee DPM [Staff Physician] - Juan Tabares [Primary Care Provider] - Disposition: Home, Self-Usp Medications: Home Medications Medication Instructions Recorded Confirmed Type albuterol sulfate HFA 90 1 puff INHALATION DAILY PRN 17 06/04/17 09/03/18 History mcg/actuation aerosol inhaler Days #18 amitriptyline 25 mg tablet 25 mg PO DAILY 30 Days #30 06/04/17 09/03/18 History dulaglutide 1.5 mg/0.5 mL 0.5 % SUB-Q WEEKLY 28 Days #2 06/04/17 09/03/18 History subcutaneous pen injector escitalopram 10 mg tablet 10 mg PO DAILY 30 Days #30 06/04/17 09/03/18 History estradiol 2 mg tablet 2 mg PO DAILY 30 Days #30 06/04/17 09/03/18 History fluticasone furoate 200 1 puff INHALATION DAILY 30 Days #60 06/04/17 09/03/18 History mcg-vilanterol 25 mcg/dose inhalation powder fluticasone propionate 50 2 spry INTRANASAL DAILY 30 Days #16 06/04/17 09/03/18 History mcg/actuation nasal spray,suspension insulin aspar prot-insulin aspart 45 units SUB-Q BID 16 Days #15 06/04/17 08/19/18 History 100 unit/mL (70-30) subcutaneous pen metformin ER 500 mg 500 mg PO BID 30 Days #60 06/04/17 09/03/18 History tablet,extended release 24 hr montelukast 10 mg tablet 10 mg PO DAILY 30 Days #30 06/04/17 09/03/18 History meperidine 50 mg tablet 50 mg PO Q6HP PRN 5 Days #30 07/30/17 09/03/18 History Ergocalciferol (Vitamin D2) 400 unit PO DAILY 08/19/17 09/03/18 History [Vitamin D] Melatonin 10 mg PO DAILY 08/19/17 09/03/18 History Vitamin E 400 unit PO DAILY 08/19/17 09/03/18 History pregabalin 75 mg capsule 150 mg PO TID 30 Days #180 cap 09/12/17 09/03/18 Hist ory linagliptin 5 mg tablet 5 mg PO DAILY 30 Days #30 11/19/17 09/03/18 History omeprazole 20 mg capsule,delayed 20 mg PO DAILY 30 Days #30 11/19/17 09/03/18 History release metoprolol succinate ER 25 mg 25 mg PO DAILY 02/13/18 09/03/18 History capsule sprinkle, ext. release 24 hr diclofenac 1 % topical gel 4 g TOPICAL QID #30 g 04/17/18 09/03/18 Rx sulfamethoxazole 800 1 tab PO BID #28 tab 06/18/18 09/03/18 Rx mg-trimethoprim 160 mg tablet methylprednisolone 4 mg tablets in See Rx Instructions PO PER PKG DIR 07/02/18 09/03/18 Rx a dose pack #21 tab spironolactone 25 mg tablet 25 mg PO DAILY #30 tab 08/19/18 09/03/18 History Aspirin 81 mg PO DAILY 09/03/18 09/03/18 History Enoxaparin Sodium [Lovenox 40 mg SQ QDAY 20 Days #8 ml 09/04/18 Rx 40mg/0.4mL syringe] Ibuprofen [Motrin 800mg Tab 800 mg PO BID #60 tab 09/04/18 Rx (generic)] Ketorolac Tromethamine [Toradol 30 mg PO Q6H PRN #30 tab 09/04/18 Rx 30mg/mL vial] cephALEXin [Cephalexin 500mg Tab] 500 mg PO Q12H 21 Days #42 tab 09/04/18 Rx ondansetron 4 mg disintegrating 4 mg PO Q6H #30 tab 09/04/18 Rx tablet Prescriptions/Medication Reconciliation: New Ketorolac Tromethamine [Toradol 30mg/mL vial] 30 mg PO Q6H PRN #30 tab PRN Reason: Severe Pain Continued albuterol sulfate HFA 90 mcg/actuation aerosol inhaler 1 puff INHALATION DAILY PRN 17 Days #18 PRN Reason: asthma estradiol 2 mg tablet 2 mg PO DAILY 30 Days #30 amitriptyline 25 mg tablet 25 mg PO DAILY 30 Days #30 fluticasone furoate 200 mcg-vilanterol 25 mcg/dose inhalation powder 1 puff INHALATION DAILY 30 Days #60 montelukast 10 mg tablet 10 mg PO DAILY 30 Days #30 escitalopram 10 mg tablet 10 mg PO DAILY 30 Days #30 dulaglutide 1.5 mg/0.5 mL subcutaneous pen injector 0.5 % SUB-Q WEEKLY 28 Days #2 pregabalin 75 mg capsule 150 mg PO TID 30 Days #180 cap omeprazole 20 mg capsule,delayed release 20 mg PO DAILY 30 Days #30 linagliptin 5 mg tablet 5 mg PO DAILY 30 Days #30 metoprolol succinate ER 25 mg capsule sprinkle, ext. release 24 hr 25 mg PO DAILY methylprednisolone 4 mg tablets in a dose pack See Rx Instructions PO PER PKG DIR #21 tab spironolactone 25 mg tablet 25 mg PO DAILY #30 tab metformin ER 500 mg tablet,extended release 24 hr 500 mg PO BID 30 Days #60 fluticasone propionate 50 mcg/actuation nasal spray,suspension 2 spry INTRANASAL DAILY 30 Days #16 ondansetron 4 mg disintegrating tablet 4 mg PO Q6H #30 tab Melatonin 10 mg PO DAILY Ergocalciferol (Vitamin D2) [Vitamin D] 400 unit PO DAILY cephALEXin [Cephalexin 500mg Tab] 500 mg PO Q12H 21 Days #42 tab Enoxaparin Sodium [Lovenox 40mg/0.4mL syringe] 40 mg SQ QDAY 20 Days #8 ml Ibuprofen [Motrin 800mg Tab (generic)] 800 mg PO BID #60 tab Aspirin 81 mg PO DAILY Discontinued meperidine 50 mg tablet 50 mg PO Q6HP PRN 5 Days #30 PRN Reason: PAIN sulfamethoxazole 800 mg-trimethoprim 160 mg tablet 1 tab PO BID #28 tab diclofenac 1 % topical gel 4 g TOPICAL QID #30 g Vitamin E 400 unit PO DAILY No Action insulin aspar prot-insulin aspart 100 unit/mL (70-30) subcutaneous pen 45 units SUB-Q BID 16 Days #15
--- NOTE | 2018-09-04 10:10 | Progress Note ---
Internal Medicine - PN: Subj *Date: 09/04/18 *Time: 10:07 Interval history: Patient doing better and eager to go home. Still having some diarrhea but better than yesterday. Exam Vital signs and Labs for Last 24 Hours: Temp Pulse Resp BP Pulse Ox 98.5 F 84 17 130/63 93 L 09/04/18 08:00 09/04/18 08:00 09/04/18 08:00 09/04/18 08:00 09/04/18 08:00 Laboratory Results - last 24 hr 09/03/18 17:29: POC Glucose 154 H 09/03/18 20:50: Stl Aeromonas (PCR) Not detected, Stl C. cayetanensis PCR Not detected, Stool Rotavirus (PCR) Not detected, Stl Adenov F 40/41 PCR Not detected, Stool Astrovirus (PCR) Not detected, Stool Campylobacter PCR Not detected, Stl C.difficile Tox PCR Detected A, Stool Cryptosporidium PCR Not detected, Stl E.coli Shiga Tox PCR Not detected, Stool E coli O157 PCR Not detected, Stl Enterotoxigenic E PCR Not detected, Stool EPEC (PCR) Not detected, Stool EAEC (PCR) Not detected, Stl E. histolytica PCR Not detected, Stool Giardia Lamblia PCR Not detected, Stool Salmonella PCR Not detected, Stool Sapovirus (PCR) Not detected, Stl P. shigelloides PCR Not detected, Stl Shigella/EIEC PCR Not detected, St Y.enterocolitica PCR Not detected, Stool Vibrio (PCR) Not detected, Stl Vibrio cholerae PCR Not detected, Stl Norovirus GI/GII PCR Not detected 09/03/18 21:35: POC Glucose 260 H 09/04/18 05:54: POC Glucose 295 H 09/04/18 06:00: WBC 11.3 H, RBC 3.82 L, Hgb 11.4 L, Hct 34.8 L, MCV 91.0, MCH 29.8, MCHC 32.8, RDW 14.0, Plt Count 211, MPV 9.5, Neut % (Auto) 77.8, Lymph % (Auto) 16.1, [place] % (Auto) 5.9, Eos % (Auto) 0.0 L, Baso % (Auto) 0.0 L, Neut # (Auto) 8.8 H, Lymph # (Auto) 1.8, [place] # (Auto) 0.7, Eos # (Auto) 0.0, Baso # (Auto) 0.0 09/04/18 06:00: Sodium 137, Potassium 4.3, Chloride 103, Carbon Dioxide 22, Anion Gap 16.3 H, BUN 23 H, Creatinine 1.61 H, Estimated Creat Clear 37, Estimated GFR 34 L, Est GFR ( Amer) 41 L, Glucose 304 H, Calcium 7.7 L, Total Bilirubin 0.2, AST 47 H, ALT 16, Alkaline Phosphatase 75, Total Protein 6.2 L, Albumin 2.4 L, Globulin 3.8 H, Albumin/Globulin Ratio 0.6 L 09/04/18 08:29: POC Glucose 244 H I & O for Last 24 hours: Intake & Output 09/01/18 09/02/18 09/03/18 09/04/18 11:59 11:59 11:59 11:59 Intake Total 4144 / 4144 Output Total 1700 / 1700 Balance 2444 / 2444 Weight 219 lb 15.988 oz 252 lb 8 oz - *Routine HEENT Exam Head: Present: normocephalic Eye: Present: EOMI, PERRL ENT: Present: mucous membranes moist - *Routine Neck Exam Present: supple. Absent: lymphadenopathy - *Routine Respiratory Exam Present: CTA bilaterally - *Routine Cardiovascular Exam Present: RRR - *Routine Abdominal Exam Present: soft. Absent: tenderness, distended (hyperactive bowel sounds) - *Routine Extremities Exam Absent: cyanosis, clubbing, full ROM (limited on left ankle consistent s/p surgery) - *Routine Skin Exam Present: warm. Absent: rash - *Routine Neurological Exam Present: alert, oriented X3 Assessment and Plan (1) Peroneal tendon tear Current visit: Yes Status: Acute Category: Medical Code(s): S86.319A - St rain of muscle(s) and tendon(s) of peroneal muscle group at lower leg level, unspecified leg, initial encounter (2) Sprain of anterior talofibular ligament of left ankle Current visit: Yes Status: Acute Category: Medical Code(s): S93.492A - Sprain of other ligament of left ankle, initial encounter (3) Status post surgical manipulation of ankle joint Current visit: Yes Status: Resolved Category: Surgical Code(s): Z98.890 - Other specified postprocedural states (4) Hypertension Current visit: Yes Status: Chronic Category: Medical Code(s): I10 - Essential (primary) hypertension (5) Hyperlipidemia Current visit: Yes Status: Chronic Category: Medical Code(s): E78.5 - Hyperlipidemia, unspecified (6) Charcot's joint, left ankle and foot Current visit: No Status: Chronic Category: Medical Code(s): M14.672 - Charcot's joint, left ankle and foot (7) IDDM (insulin dependent diabetes mellitus) Current visit: No Status: Chronic Category: Medical Code(s): E11.9 - Type 2 diabetes mellitus without complications; Z79.4 - jail (current) use of insulin (8) C. difficile diarrhea Current visit: Yes Status: Acute Category: Medical Code(s): A04.72 - Enterocolitis due to Clostridium difficile, not specified as recurrent - Assessment and plan all Dx Assessment and Plan for all problems:: will need flagyl 500 mg tid for 7 days upon discharge (I already sent the script through discharge plan). Educated about flagyl and disulfram like reaction in case of co-ingestion with alcohol. She voiced understand and agreed not to drink alcoholic beverages while taking this medicine and 24 hours after last dose. She voiced understanding. Patient ready to be discharged from medical standpoint.
== END 2018-09-04 15:44 | disposition home or self-care (01) ==
LOC: OR 07:39 → 2ND 07:39
PROVIDERS: ADMIT Podiatrist; ATTEND Podiatrist
CPT/HCPCS: 36415; 73610; 73620; 73630; 76000; 80053; 81001; 82962; 85025; 85610; 87507; 96374; 97162; C1713; C1762; C1776; G0378; J2405

== ENCOUNTER → 2018-10-15 14:57 | Outpatient (CLI) | payer BC, SELFPAY ==
--- NOTE | 2018-10-15 15:02 | XR_ITS ---
XR ankle wt bearing LT min 3V HISTORY: ITS.REASON: pain ORDERING PHYSICIAN: Aure Bee DPM PATIENT AGE: 52 years Comparison: None FINDINGS: 3 views. There is no placement of extensive metallic orthopedic hardware with compression plate and fixation screws involving the tarsal area of the foot and compression plate involving the anterior distal tibia with fixation screws. Lateral view shows narrowing of the tibiotalar joint. The external orthopedic device obscures some of the detail. There are surgical skin mic. Impression: Postoperative exam. There is narrowing of the tibiotalar joint.
--- NOTE | 2018-10-15 15:02 | XR_ITS ---
XR foot wt bearing LT 3V HISTORY: ITS.REASON: pain ORDERING PHYSICIAN: Aure Bee DPM PATIENT AGE: 52 years COMPARISON: None FINDINGS: The orthopedic hardware and external fixator device obscures much of the osseous detail. There appears to be a fixator screw extending along the shaft of the fourth metatarsal bone and crossing the joint space between the metatarsal bone and cuboid tarsal bone. There is evidence of joint space narrowing with cortical irregularity at the articulation between the cuneiform bones and the proximal second and third metacarpal bones. Surgical skin mic are present. There is some prominence of the dorsal soft tissues. Impression: Evidence of surgery involving the fourth digit as described. Dorsal soft tissue prominence likely some operative related edema. There appears to be degenerative changes between the tarsal/metatarsal areas at the second and third digits.
--- NOTE | 2018-10-15 15:02 | XR_ITS ---
XR tibia fibula LT 2V ORDERING PHYSICIAN : Aure Bee DPM PATIENT AGE: 52 years GENDER: Female HISTORY:ITS.REASON: pain COMPARISON: None TECHNIQUE: 2 views. FINDINGS: As described on the ankle and foot report there is a metallic external fixator device as well as compression plate and fixation screws at the ankle and visualized portions of the feet along with anterior and posterior surgical skin mic. The compression plate and fixation screws involve the anterior distal epiphysis and metaphysis of the tibia. There is no acute fracture. There is also a vertically aligned fixation screw overlying the tibiotalar joint area which is narrowed. The remainder of the tibia and fibula appear to be intact. IMPRESSION: Postoperative changes as described.
== END ==
PROVIDERS: PCP Pediatrics; Visit Provider Podiatrist
DX: Z98.890 Other specified postprocedural states (principal)
CPT/HCPCS: 73590; 73610; 73630

== ENCOUNTER → 2018-10-29 15:24 | Outpatient (CLI) | payer BC, SELFPAY ==
[2018-10-29 16:01] LABS: Basophils % 0.4 % (0.1-2.0); Eosinophils # 0.3 K/mm3 (0.0-0.4); Eosinophils % 3.8 % (0.1-12.0); Hematocrit 40.4 % (37.0-47.0); Hemoglobin 12.4 g/dL (12.2-16.2); Lymphocytes # 3.5 K/mm3 (0.7-4.5); Lymphocytes % 44.5 % (10-50); Mean Corpuscular HGB Conc 30.8 g/dL (31.8-35.4); Mean Corpuscular Hemoglobin 28.7 pg (27.0-31.2); Mean Corpuscular Volume 93.2 fl (81-99); Mean Platelet Volume 9.5 fl (7.4-10.4); Monocytes # 0.4 K/mm3 (0.1-1.0); Monocytes % 4.6 % (1.7-9.3); Neutrophils # 3.7 K/mm3 (1.8-7.8); Neutrophils % 46.7 % (37.0-80.0); Platelet Count 332 K/mm3 (142-424); Red Blood Count 4.33 M/mm3 (4.20-5.40); Red Cell Distribution Width 13.9 % (11.5-17.5); White Blood Count 7.9 K/mm3 (4.8-10.8)
[2018-10-29 16:34] LABS: Blood Urea Nitrogen 22 mg/dL (7-18); Calcium 8.8 mg/dL (8.5-10.1); Carbon Dioxide 26 mmol/L (21.0-32.0); Chloride 101 mmol/L (98-107); Creatinine,Serum 1.41 mg/dL (0.55-1.02); Estimated Glomerular Filt Rate 39 ml/min (>60); GFR (African American) 48 ML/MIN (>60); Glucose 137 mg/dL (74-106); Sodium 137 mmol/L (136-145)
== END ==
PROVIDERS: PCP Pediatrics; Visit Provider Podiatrist
DX: Z01.818 Encounter for other preprocedural examination (principal); E11.610 Type 2 diabetes mellitus with diabetic neuropathic arthropathy
CPT/HCPCS: 36415; 80048; 85025; 93005

== ENCOUNTER → 2018-11-26 15:00 | Outpatient (CLI) | payer BC, SELFPAY ==
--- NOTE | 2018-11-26 15:03 | XR_ITS ---
XR foot wt bearing LT 3V HISTORY: Follow-up ORIF/fusion ITS.REASON: post-op ORDERING PHYSICIAN: Aure Bee DPM PATIENT AGE: 52 years COMPARISON: 11/19/2018 FINDINGS: The cast has been removed. Status post extensive foot and ankle surgery. No interval change in the multiple bone plates and screws as previously described. A lucency noted in the second third and fourth metatarsals from previous external fixator. There is good alignment. There is some mild flattening of the head of the first metatarsal nonspecific. No evidence of hardware malfunction. The cortical irregularity of the navicular and cuneiform region is not apparent on today's study. There is some difference in positioning compared to the previous exam IMPRESSION: Interval removal of the posterior splint with overall no other significant change in the extensive foot and ankle surgery.
[2018-11-26 16:08] LABS: Basophils % 0.4 % (0.1-2.0); Eosinophils # 0.2 K/mm3 (0.0-0.4); Eosinophils % 1.9 % (0.1-12.0); Hematocrit 38.9 % (37.0-47.0); Hemoglobin 12.6 g/dL (12.2-16.2); Lymphocytes # 3.5 K/mm3 (0.7-4.5); Lymphocytes % 36.7 % (10-50); Mean Corpuscular HGB Conc 32.4 g/dL (31.8-35.4); Mean Corpuscular Hemoglobin 28.2 pg (27.0-31.2); Mean Corpuscular Volume 87.1 fl (81-99); Mean Platelet Volume 8.6 fl (7.4-10.4); Monocytes # 0.3 K/mm3 (0.1-1.0); Monocytes % 3.4 % (1.7-9.3); Neutrophils # 5.5 K/mm3 (1.8-7.8); Neutrophils % 57.6 % (37.0-80.0); Platelet Count 291 K/mm3 (142-424); Red Blood Count 4.46 M/mm3 (4.20-5.40); Red Cell Distribution Width 14.4 % (11.5-17.5); White Blood Count 9.6 K/mm3 (4.8-10.8)
[2018-11-26 17:46] LABS: Alanine Aminotransferase 15 U/L (12-78); Albumin Level 2.9 gm/dL (3.4-5.0); Albumin/Globulin Ratio 0.7 (1.1-1.8); Alkaline Phosphatase 146 U/L (46-116); Anion Gap 14.6 mEq/L (5-15); Aspartate Amino Transferase 11 U/L (15-37); Bilirubin,Total 0.3 mg/dL (0.2-1.0); Blood Urea Nitrogen 17 mg/dL (7-18); C-Reactive Protein 5.7 mg/dL (0.0-0.9); Calcium 8.6 mg/dL (8.5-10.1); Carbon Dioxide 26 mmol/L (21.0-32.0); Chloride 98 mmol/L (98-107); Creatinine,Serum 1.24 mg/dL (0.55-1.02); Estimated Glomerular Filt Rate 46 ml/min (>60); GFR (African American) 55 ML/MIN (>60); Globulin 4.2 gm/dl (1.3-3.2); Glucose 257 mg/dL (74-106); Potassium 4.6 mmoL/L (3.5-5.1); Sodium 134 mmol/L (136-145); Total Protein,Serum 7.1 gm/dL (6.4-8.2)
[2018-11-26 19:04] LABS: Hemoglobin A1C 9.8 % (0.0-7.0)
[2018-11-26 19:18] LABS: Erythrocyte Sedimentation Rate 116 mm/hr (0-30)
== END ==
PROVIDERS: PCP Pediatrics; Visit Provider Podiatrist
DX: Z98.890 Other specified postprocedural states (principal); E11.610 Type 2 diabetes mellitus with diabetic neuropathic arthropathy
CPT/HCPCS: 36415; 73630; 80053; 83036; 85025; 85651; 86140; 87070; 87077; 87186; 87205

== ENCOUNTER → 2018-11-26 17:19 | Outpatient (CLI) | payer BC, SELFPAY | PROVIDERS: Visit Provider Podiatrist | DX: M79.672 Pain in left foot (principal) | CPT/HCPCS: 87070; 87205 ==

== ENCOUNTER → 2018-12-11 10:00 | Outpatient (CLI) | payer BC, SELFPAY | PROVIDERS: Visit Provider Podiatrist | DX: S90.422A Blister (nonthermal), left great toe, initial encounter (principal) | CPT/HCPCS: 87070; 87077; 87186; 87205 ==

== ENCOUNTER → 2018-12-15 19:03 | Outpatient (CLI) | payer BC, SELFPAY ==
[2018-12-15 19:36] LABS: C-Reactive Protein 0.9 mg/dL (0.0-0.9)
[2018-12-15 19:37] LABS: Basophils % 0.4 % (0.1-2.0); Eosinophils # 0.3 K/mm3 (0.0-0.4); Eosinophils % 3.2 % (0.1-12.0); Hematocrit 38.3 % (37.0-47.0); Hemoglobin 12.5 g/dL (12.2-16.2); Lymphocytes # 3.7 K/mm3 (0.7-4.5); Lymphocytes % 47.6 % (10-50); Mean Corpuscular HGB Conc 32.6 g/dL (31.8-35.4); Mean Corpuscular Hemoglobin 28.7 pg (27.0-31.2); Mean Platelet Volume 9.4 fl (7.4-10.4); Monocytes # 0.4 K/mm3 (0.1-1.0); Monocytes % 4.7 % (1.7-9.3); Neutrophils # 3.5 K/mm3 (1.8-7.8); Neutrophils % 44.1 % (37.0-80.0); Platelet Count 253 K/mm3 (142-424); Red Blood Count 4.35 M/mm3 (4.20-5.40); Red Cell Distribution Width 14.3 % (11.5-17.5); White Blood Count 7.8 K/mm3 (4.8-10.8)
[2018-12-15 21:12] LABS: Erythrocyte Sedimentation Rate 26 mm/hr (0-30)
== END ==
PROVIDERS: Visit Provider Podiatrist
DX: S90.422A Blister (nonthermal), left great toe, initial encounter (principal); T81.31XD Disruption of external operation (surgical) wound, not elsewhere classified, subsequent encounter
CPT/HCPCS: 85025; 85651; 86140

== ENCOUNTER → 2018-12-19 16:45 | Outpatient (CLI) | payer BC, SELFPAY ==
[2018-12-19 17:23] LABS: Anion Gap 13.5 mEq/L (5-15); Blood Urea Nitrogen 20 mg/dL (7-18); Calcium 8.5 mg/dL (8.5-10.1); Carbon Dioxide 26 mmol/L (21.0-32.0); Chloride 104 mmol/L (98-107); Creatinine,Serum 1.19 mg/dL (0.55-1.02); Estimated Glomerular Filt Rate 48 ml/min (>60); GFR (African American) 58 ML/MIN (>60); Glucose 146 mg/dL (74-106); Potassium 4.5 mmoL/L (3.5-5.1); Sodium 139 mmol/L (136-145); Vancomycin,Trough 14.5 mcg/ml (10.0-20.0)
[2018-12-29 18:08] LABS: Anion Gap 14.2 mEq/L (5-15); Blood Urea Nitrogen 13 mg/dL (7-18); Calcium 8.5 mg/dL (8.5-10.1); Carbon Dioxide 26 mmol/L (21.0-32.0); Chloride 101 mmol/L (98-107); Creatinine,Serum 1.09 mg/dL (0.55-1.02); Estimated Glomerular Filt Rate 53 ml/min (>60); GFR (African American) 64 ML/MIN (>60); Glucose 153 mg/dL (74-106); Potassium 4.2 mmoL/L (3.5-5.1); Sodium 137 mmol/L (136-145); Vancomycin,Trough 13.5 mcg/ml (10.0-20.0)
== END ==
PROVIDERS: Visit Provider Podiatrist
DX: S90.422A Blister (nonthermal), left great toe, initial encounter (principal); T81.31XD Disruption of external operation (surgical) wound, not elsewhere classified, subsequent encounter
CPT/HCPCS: 80048; 80202

== ENCOUNTER → 2018-12-29 16:54 | Outpatient (CLI) | payer BC, SELFPAY | PROVIDERS: Visit Provider Podiatrist | DX: Z51.89 Encounter for other specified aftercare (principal) ==

== ENCOUNTER → 2019-01-01 12:09 | Outpatient (CLI) | payer BC, SELFPAY ==
[2019-01-01 12:40] LABS: Basophils % 0.4 % (0.1-2.0); Eosinophils # 0.3 K/mm3 (0.0-0.4); Eosinophils % 3.7 % (0.1-12.0); Hematocrit 36.9 % (37.0-47.0); Hemoglobin 12.1 g/dL (12.2-16.2); Lymphocytes # 3.4 K/mm3 (0.7-4.5); Lymphocytes % 50.9 % (10-50); Mean Corpuscular HGB Conc 32.8 g/dL (31.8-35.4); Mean Corpuscular Hemoglobin 28.6 pg (27.0-31.2); Mean Corpuscular Volume 87.3 fl (81-99); Mean Platelet Volume 8.5 fl (7.4-10.4); Monocytes # 0.4 K/mm3 (0.1-1.0); Neutrophils # 2.6 K/mm3 (1.8-7.8); Platelet Count 264 K/mm3 (142-424); Red Blood Count 4.22 M/mm3 (4.20-5.40); Red Cell Distribution Width 14.5 % (11.5-17.5); White Blood Count 6.7 K/mm3 (4.8-10.8)
[2019-01-01 13:24] LABS: MANUAL DIFFERENTIAL MANUAL DIFFERENTIAL (MANUAL DIFF)
[2019-01-01 13:45] LABS: Alanine Aminotransferase 13 U/L (12-78); Albumin/Globulin Ratio 0.8 (1.1-1.8); Alkaline Phosphatase 104 U/L (46-116); Anion Gap 14.3 mEq/L (5-15); Aspartate Amino Transferase 20 U/L (15-37); Bilirubin,Total 0.3 mg/dL (0.2-1.0); Blood Urea Nitrogen 15 mg/dL (7-18); C-Reactive Protein 1.4 mg/dL (0.0-0.9); Calcium 8.6 mg/dL (8.5-10.1); Carbon Dioxide 27 mmol/L (21.0-32.0); Chloride 103 mmol/L (98-107); Creatinine,Serum 1.06 mg/dL (0.55-1.02); Estimated Glomerular Filt Rate 54 ml/min (>60); GFR (African American) 66 ML/MIN (>60); Globulin 3.9 gm/dl (1.3-3.2); Glucose 70 mg/dL (74-106); Potassium 4.3 mmoL/L (3.5-5.1); Sodium 140 mmol/L (136-145); Total Protein,Serum 6.9 gm/dL (6.4-8.2)
[2019-01-01 14:35] LABS: Erythrocyte Sedimentation Rate 42 mm/hr (0-30)
[2019-01-01 14:41] LABS: Eosinophils % 3 % (0-3); Hypochromasia 1+; Lymphocytes % 51 % (10-50); Monocytes % 6 % (2-9); Neutrophils % 40 % (42-76); Platelet Estimate Normal; Tear Drop Cells 1+; Total Cells Counted 100
== END ==
PROVIDERS: Visit Provider Podiatrist
DX: Z51.89 Encounter for other specified aftercare (principal)
CPT/HCPCS: 80053; 85007; 85025; 85651; 86140

== ENCOUNTER → 2019-01-05 18:39 | Outpatient (CLI) | payer BC, SELFPAY ==
[2019-01-05 19:16] LABS: C-Reactive Protein 1.6 mg/dL (0.0-0.9)
[2019-01-05 19:28] LABS: Erythrocyte Sedimentation Rate 47 mm/hr (0-30)
[2019-01-06 19:44] LABS: Alanine Aminotransferase 12 U/L (12-78); Albumin/Globulin Ratio 0.8 (1.1-1.8); Alkaline Phosphatase 110 U/L (46-116); Anion Gap 16.9 mEq/L (5-15); Aspartate Amino Transferase 22 U/L (15-37); Bilirubin,Total 0.2 mg/dL (0.2-1.0); Blood Urea Nitrogen 17 mg/dL (7-18); Calcium 8.4 mg/dL (8.5-10.1); Carbon Dioxide 24 mmol/L (21.0-32.0); Chloride 101 mmol/L (98-107); Creatinine,Serum 1.25 mg/dL (0.55-1.02); Estimated Glomerular Filt Rate 45 ml/min (>60); GFR (African American) 54 ML/MIN (>60); Globulin 3.9 gm/dl (1.3-3.2); Glucose 210 mg/dL (74-106); Potassium 3.9 mmoL/L (3.5-5.1); Sodium 138 mmol/L (136-145); Total Protein,Serum 6.9 gm/dL (6.4-8.2)
[2019-01-06 20:38] LABS: Vancomycin,Trough 20.7 mcg/ml (10.0-20.0)
== END ==
PROVIDERS: Visit Provider Podiatrist
DX: E11.621 Type 2 diabetes mellitus with foot ulcer (principal); L97.519 Non-pressure chronic ulcer of other part of right foot with unspecified severity; Z79.4 Long term (current) use of insulin
CPT/HCPCS: 36415; 80053; 80202; 85651; 86140

== ENCOUNTER → 2019-01-15 16:58 | Outpatient (CLI) | payer BC, SELFPAY | PROVIDERS: Visit Provider Podiatrist | DX: S90.422A Blister (nonthermal), left great toe, initial encounter (principal); Z98.890 Other specified postprocedural states | CPT/HCPCS: 87070; 87077; 87205 ==

== ENCOUNTER → 2019-02-03 15:36 | Outpatient (CLI) | payer BC, SELFPAY ==
--- NOTE | 2019-02-03 15:40 | XR_ITS ---
PROCEDURE: XR FOOT WT BEARING RT 3V CLINICAL INDICATION: Pain COMPARISON: [id number] XR foot wt bearing LT 3V from 02/13/2018 [id number] XR foot LT min 3V from 02/15/2018 XR FOOT LT MIN 3V from 12/04/2018 XR FOOT LT MIN 3V from 12/05/2018 FINDINGS: No fracture or dislocation. No lytic or blastic change. There is normal mineralization. The joint spaces are well-preserved. No significant degenerative/arthritic changes. No erosive changes evident. Other findings:None. IMPRESSION: No acute findings. Dictated by: Kofi Suarez MD 02/03/2019 17:05 Electronically signed by Kofi Suarez MD in [place] 02/03/2019 17:05
== END ==
PROVIDERS: PCP Pediatrics; Visit Provider Podiatrist
DX: M79.671 Pain in right foot (principal)
CPT/HCPCS: 73630

== ENCOUNTER → 2019-03-31 09:42 | Outpatient (CLI) | payer BC, SELFPAY ==
[2019-03-31 10:57] VITALS: BMI 36.2
== END ==
PROVIDERS: PCP Pediatrics; Visit Provider Podiatrist
DX: Z71.3 Dietary counseling and surveillance (principal); E11.9 Type 2 diabetes mellitus without complications; Z79.4 Long term (current) use of insulin
CPT/HCPCS: 97802

== ENCOUNTER → 2019-04-23 12:35 | Outpatient (CLI) | payer BC, SELFPAY ==
--- NOTE | 2019-04-23 12:40 | XR_ITS ---
PROCEDURE: XR ANKLE WT BEARING LT MIN 3V CLINICAL INDICATION: pain Follow-up surgery/pain COMPARISON: XR FOOT LT MIN 3V from 12/05/2018 XR ANKLE LT MIN 3V from 12/05/2018 XR FOOT WT BEARING RT 3V from 02/03/2019 XR FOOT WT BEARING LT 3V from 04/23/2019 FINDINGS: Prior fusion the ankle joint with an anterior L-shaped bone plate with multiple screws. The screws within the distal tibia are unchanged. There are 2 screws within the anterior and distal aspect of the talus. These 2 screws do appear to be showing distraction and are not flush with the bone plate. Joint space is still present at the tibial talar region. There has been prior fusion of the midfoot with a medial bone plate and long lag screw from the 1st metatarsal into the medial cuneiform navicular and distal aspect the talus. The the not appear significantly changed with good alignment. IMPRESSION: 1. Status post tibial talar effusion. Two screws within the L-shaped talar component appear to be distracting. 2. No other significant changes. Dictated by: Kofi Suarez MD 04/23/2019 13:17 Electronically signed by Kofi Suarez MD in [place] 04/23/2019 13:17
== END ==
PROVIDERS: PCP Pediatrics; Visit Provider Podiatrist
DX: E11.610 Type 2 diabetes mellitus with diabetic neuropathic arthropathy (principal); Z79.4 Long term (current) use of insulin; Z79.84 Long term (current) use of oral hypoglycemic drugs
CPT/HCPCS: 73610; 73630

== ENCOUNTER 2019-04-30 11:00 | Outpatient (RCR) | payer BC, SELFPAY ==
--- NOTE | 2019-03-23 14:22 | [facility].PTOPWND ---
Rehab Outpt Wound Evaluation Rehab OP Wound Evaluation Start: 03/23/19 13:51 Freq: Status: Active Protocol: Document 03/23/19 14:15 PHOESTELLA (Rec: 03/23/19 14:22 PHORNE [id number]) Electronically Signed By Anant Delarosa, PT 03/23/19 14:15 Subjective/History History History Pt is 53 yowf who presents with c/o B LE edema, worse on the left, S/P left foot Charcot ex-fix removal performed 12/05/18. 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 She reports he last A1c was 8.3%. She is wearing walking boot as prescribed by DPM and has limited left foot/ankle ROM as expected post-op. She reports pain in the left foot, worse with increased edema. She has PMH of Asthma, HTN, HL, DM-II, MRSA, and migraine. Subjective Subjective She reports pain 4/10 typically, 7/10 at worst. Lymphedema Eval Classification of Lymphedema Secondary Lymphedema Yes Stemmer's sign Stemmer's Sign no Stage of Lymphedema Lymphedema stages Stage I (Pitting edema, reduces w/ elevation, no fibrosis) Skin Changes Dry Skin Yes Redness Yes Wounds Yes Discoloration of Skin Yes Other Changes Yes Pain Scale Pain Scale (0-10) 7 Affected Extremities Areas Affected by Lymphedema/Edema Right Lower Extremity,Left Lower Extremity Manual Lymphatic Drainage Treatment Area MLD Treatment Area Right Lower Extremity,Left Lower Extremity Wound Problems/Impairments Impairments Problems/Impairmments Palpation Tenderness,Impaired Range of Motion,Impaired Strength,Impaired Walking, Increased Edema,Lymphedema Present,Subjective C/O Pain, Impaired Self Care/Self Management Prognosis Rehab Potential Good Clinical Impression Consistent with Diagnosis Yes Short Term Goals Number of Weeks 4 Decreased Palpation Tenderness Yes: to min Decrease Edema Yes Decrease Subjective C/O Pain Yes: 5/10 Patient to Und
== END 2019-04-30 11:05 | disposition home or self-care (01) ==
LOC: PT 11:00
PROVIDERS: PCP Pediatrics; Visit Provider Podiatrist
DX: I89.0 Lymphedema, not elsewhere classified (principal)
CPT/HCPCS: 97140; 97162; 97760

== ENCOUNTER → 2019-05-15 15:44 | Outpatient (CLI) | payer BC, SELFPAY ==
--- NOTE | 2019-05-15 15:47 | XR_ITS ---
PROCEDURE: XR ANKLE WT BEARING LT MIN 3V CLINICAL INDICATION: ankle pain COMPARISON: ANKCMLT XR ankle LT min 3V from 02/15/2018 ANKCMLT XR ankle LT min 3V from 07/01/2018 XR ANKLE LT MIN 3V from 12/05/2018 FINDINGS: Postsurgical changes associated with prior fusion of the ankle and midfoot are again noted with metallic hardware in place. Overall bony alignment and positioning is not significantly changed. Joint space is still present at the tibiotalar joint. The 2 screws traversing the L-shaped anterior tibial metallic plate extending into the anterior talus appear to be more distracted than on the previous exam. They appear to engage less of the bony talus than previously. Their heads are seen approximately 6 millimeters superior to the superior end plate of the L-shaped bone plate. Additional callus is associated with the head of the lateral large distal tibial-talar reduction screw. There is no acute fracture dislocation or destructive bony lesion. No other significant changes are apparent IMPRESSION: Postoperative changes as described. There is distraction of the reduction screws that engage the anterior dorsal talus in association with the L-shaped metallic fixation plate Dictated by: Matt Calloway 05/16/2019 11:27 Electronically signed by Matt Calloway in [place] 05/16/2019 11:27
== END ==
PROVIDERS: PCP Pediatrics; Visit Provider Podiatrist
DX: M25.572 Pain in left ankle and joints of left foot (principal)
CPT/HCPCS: 73610

== ENCOUNTER → 2019-06-17 12:10 | Outpatient (CLI) | payer BC, SELFPAY ==
--- NOTE | 2019-06-17 12:15 | XR_ITS ---
PROCEDURE: XR ANKLE WT BEARING RT MIN 3V CLINICAL INDICATION: pain, history of charcot COMPARISON: ANKCMLT XR ankle LT min 3V from 07/01/2018 XR ANKLE LT MIN 3V from 12/05/2018 XR ANKLE WT BEARING LT MIN 3V from 04/23/2019 FINDINGS: No fracture or dislocation. No lytic or blastic change. The joint space is well preserved. The ankle mortise is preserved. The talar dome has an unremarkable appearance. IMPRESSION: Negative ankle Dictated by: Kofi Suarez MD 06/17/2019 16:44 Electronically signed by Kofi Suarez MD in [place] 06/17/2019 16:44
== END ==
PROVIDERS: PCP Pediatrics; Visit Provider Podiatrist
DX: M25.571 Pain in right ankle and joints of right foot (principal)
CPT/HCPCS: 73610

== ENCOUNTER → 2019-10-07 10:23 | Outpatient (CLI) | payer SELFPAY ==
--- NOTE | 2019-10-07 10:38 | XR_ITS ---
PROCEDURE: XR ANKLE WT BEARING LT MIN 3V CLINICAL INDICATION: pain COMPARISON: XR ANKLE LT MIN 3V from 12/05/2018 XR ANKLE WT BEARING LT MIN 3V from 04/23/2019 XR ANKLE WT BEARING LT MIN 3V from 05/15/2019 FINDINGS: Status post ankle arthrodesis. Anterior bone plate at the distal tibia curving of along the superior surface of the talus once again noted with mild distraction of the talar screws. There is decrease in the joint space at the ankle with some cortical irregularity of the talar dome posteriorly overall not significantly changed. IMPRESSION: No change tibiotalar arthrodesis as described above Dictated by: Kofi Suarez MD 10/07/2019 14:46 Electronically signed by Kofi Suarez MD in [place] 10/07/2019 14:46
--- NOTE | 2019-10-07 10:38 | XR_ITS ---
PROCEDURE: XR ANKLE WT BEARING RT MIN 3V CLINICAL INDICATION: pain COMPARISON: No exams were available for comparison FINDINGS: No fracture or dislocation. No lytic or blastic change. There is normal mineralization. The joint spaces are well-preserved. No significant degenerative/arthritic changes. No erosive changes evident. Other findings:None. IMPRESSION: No acute findings. Dictated by: Kofi Suarez MD 10/07/2019 14:13 Electronically signed by Kofi Suarez MD in [place] 10/07/2019 14:13
--- NOTE | 2019-10-07 10:38 | XR_ITS ---
PROCEDURE: XR FOOT WT BEARING LT 3V CLINICAL INDICATION: pain COMPARISON: XR FOOT LT MIN 3V from 12/04/2018 XR FOOT LT MIN 3V from 12/05/2018 XR FOOT WT BEARING RT 3V from 02/03/2019 XR FOOT WT BEARING LT 3V from 04/23/2019 FINDINGS: No change status post anterior ankle arthrodesis, talocalcaneal arthrodesis normal, talonavicular cuneiform and 1st metatarsal arthrodesis with medial bone plate, and long lag screw within the 4th metatarsal into the cuboid. There remains good alignment. The screw within the anterior aspect of the talus at the tibial talar bone plate is not flush with the bone plate projecting proximal to the bone plate by 6 mm. This is similar when compared to the previous exam. There is some lucency noted around the long lag screw at the 1st metatarsal into the cuneiform through the navicular and into the distal talar region. There is also lucency noted around the 2 proximal screws of the medial bone plate in the talus. Loosening of the screws/is a consideration. IMPRESSION: Status post ankle and foot arthrodesis as described above. No change in the distracting screw within the tibial talar bone plate. Lucency noted along the long lag screw at the 1st metatarsal into the navicular and could represent loosening with also some lucency around the proximal 2 screws within the talus at the medial bone plate Dictated by: Kofi Suarez MD 10/07/2019 14:44 Electronically signed by Kofi Suarez MD in [place] 10/07/2019 14:44
--- NOTE | 2019-10-07 10:38 | XR_ITS ---
PROCEDURE: XR FOOT WT BEARING RT 3V CLINICAL INDICATION: pain COMPARISON: XR FOOT LT MIN 3V from 12/04/2018 XR FOOT LT MIN 3V from 12/05/2018 XR FOOT WT BEARING RT 3V from 02/03/2019 XR FOOT WT BEARING LT 3V from 04/23/2019 FINDINGS: No fracture or dislocation. No lytic or blastic change. There is normal mineralization. The joint spaces are well-preserved. No significant degenerative/arthritic changes. No erosive changes evident. Other findings:Generalized vascular calcification IMPRESSION: No acute findings. Dictated by: Kofi Suarez MD 10/07/2019 14:39 Electronically signed by Kofi Suarez MD in [place] 10/07/2019 14:39
== END ==
PROVIDERS: PCP Pediatrics; Visit Provider Podiatrist
DX: M25.572 Pain in left ankle and joints of left foot (principal); M25.571 Pain in right ankle and joints of right foot; M79.672 Pain in left foot; M79.671 Pain in right foot
CPT/HCPCS: 73610; 73630

== ENCOUNTER → 2019-10-20 14:27 | Outpatient (CLI) | payer BC, SELFPAY ==
--- NOTE | 2019-10-20 14:39 | CT_ITS ---
PROCEDURE: CT ANKLE LT WO CON CLINICAL HISTORY: ankle pain, postop pain follow-up foot construction, evaluate for effusion, pain and swelling COMPARISON: XR ANKLE WT BEARING LT MIN 3V from 10/07/2019 CT FOOT LT WO CON from 10/20/2019 TECHNIQUE: Axial images obtained with sagittal and coronal reformats. All CT scans at the facility use one or more dose reduction, viz: automated exposure control, ma/kV adjustment per patient size (including targeted exams where dose is matched to indication, i.e. head), or iterative reconstruction technique. FINDINGS: Anterior bone plate is noted at the distal tibia with a curved component along the anterior aspect of the talus. The screw within the talus portion of the bone plate is not flush with the plate distracted proximally by approximately 3 mm with lucency around the distal aspect of the screw at the neck of the talus. This suggests loosening of the screw. A there are 2 long lag screws from the posterior calcaneus into the talus. Subchondral cystic changes are present at the distal aspect of the tibia at the tibial plafond. There is a fractured screw extending from the lateral aspect of the distal tibia into the talus. The distal aspect of the fractured screws displaced medially by approximately 2.5 mm. There is some lucency noted around this screw. The ankle joint space remains present without evidence of fusion. There is some irregularity of the talar dome.. The subtalar joint has not fused. There is a long lag screw extending from the distal aspect of the 1st metatarsal into the medial cuneiform and navicular with fusion of the 1st metatarsal tarsal joint and navicular cuneiform joint. The navicular talar joint however is not fused. The screw also extends into the distal aspect of the talus with some lucency around the screw at this area. There is a medial bone plate at the tail 0 navicular medial cuneiform and 1st metatarsal region. There is some lucency around the screws at the talar region. No acute fracture or dislocation. No abscess. There is generalized soft tissue swelling. Soft tissue swelling is most prominent along the lateral aspect of the ankle and dorsal lateral foot. IMPRESSION: 1. Extensive ankle and foot surgery as detailed above with triple arthrodesis of the talonavicular and cuneiform joint and talocalcaneal arthrodesis as well as arthrodesis of the tibiotalar joint. 2. The the there has been failure of fusion of the ankle joint and subtalar joint and the talonavicular joint. 3. There is lucency around multiple screws at the talus and distal tibia as described above which may be related to loosening of the prosthesis. Infection may also cause lucency around the screws. 4. There is fracture of a tibial talar screw. Dictated by: Kofi Suarez MD 10/21/2019 10:03 Electronically signed by Kofi Suarez MD in [facility] 10/21/2019 10:05
== END ==
PROVIDERS: PCP Pediatrics; Visit Provider Podiatrist
DX: M25.572 Pain in left ankle and joints of left foot (principal); M79.89 Other specified soft tissue disorders; S99.912A Unspecified injury of left ankle, initial encounter; E11.610 Type 2 diabetes mellitus with diabetic neuropathic arthropathy; Z98.890 Other specified postprocedural states; Z79.4 Long term (current) use of insulin
CPT/HCPCS: 73700

== ENCOUNTER → 2019-11-10 12:30 | Outpatient (CLI) | payer BC, SELFPAY ==
--- NOTE | 2019-11-10 13:25 | ECG_ITS ---
APPROVED REPORT Exam: Resting ECG HR:76 bpm ECG Measurements Heart Rate 76 AXES KS 160 P 42 QRSd 76 QRS -2 QT 406 T 12 QTc 456 <Conclusion> Normal sinus rhythm Low voltage QRS Borderline ECG Electronically signed by : Miles Lemon, 11/14/2019 08:12:45
--- NOTE | 2019-11-10 13:30 | XR_ITS ---
PROCEDURE: XR CHEST 2V CLINICAL HISTORY: HIGH BLOOD PRESSURE COMPARISON: [id number] XR chest portable from 08/20/2017 XR CHEST PORTABLE PICC PLAC from 12/05/2018 CT ANGIO CHEST from 06/05/2019 XR CHEST 2V from 06/05/2019 FINDINGS: There is mild cardiomegaly without failure. The lungs are clear without infiltrates, suspicious nodules, or pleural effusions. Minimal atelectatic changes are present in the left lower lobe No acute bony abnormalities. IMPRESSION: Cardiomegaly with minimal left lower lobe atelectasis Dictated by: Kofi Suarez MD 11/10/2019 13:46 Electronically signed by Kofi Suarez MD in [place] 11/10/2019 13:46
== END ==
PROVIDERS: PCP Pediatrics; Visit Provider Podiatrist
DX: Z01.818 Encounter for other preprocedural examination (principal)
CPT/HCPCS: 36415; 71046; 93005

== ENCOUNTER → 2019-11-11 14:39 | Outpatient (CLI) | payer BC, SELFPAY ==
[2019-11-11 15:21] LABS: Basophils % 0.3 % (0.1-2.0); Eosinophils # 0.4 K/mm3 (0.0-0.4); Eosinophils % 5.4 % (0.1-12.0); Hematocrit 36.6 % (37.0-47.0); Hemoglobin 11.8 g/dL (12.2-16.2); Lymphocytes # 3.3 K/mm3 (0.7-4.5); Lymphocytes % 47.3 % (10-50); Mean Corpuscular HGB Conc 32.4 g/dL (31.8-35.4); Mean Corpuscular Hemoglobin 29.6 pg (27.0-31.2); Mean Corpuscular Volume 91.5 fl (81-99); Mean Platelet Volume 9.4 fl (7.4-10.4); Monocytes # 0.3 K/mm3 (0.1-1.0); Platelet Count 219 K/mm3 (142-424); Red Cell Distribution Width 14.8 % (11.5-17.5)
[2019-11-11 16:00] LABS: Alanine Aminotransferase 14 U/L (12-78); Albumin Level 3.6 g/dl (3.5-5.0); Albumin/Globulin Ratio 1.1 (1.1-1.8); Alkaline Phosphatase 111 U/L (38-126); Anion Gap 15.7 mEq/L (5-15); Aspartate Amino Transferase 22 U/L (14-36); Bilirubin,Total 0.2 mg/dl (0.2-1.3); Blood Urea Nitrogen 15 mg/dl (7-17); Calcium 8.6 mg/dl (8.4-10.2); Carbon Dioxide 25 mmol/L (22.0-30.0); Chloride 102 mmol/L (98-107); Estimated Glomerular Filt Rate 66 ml/min (>60); GFR (African American) 80 ML/MIN (>60); Globulin 3.2 g/dL (1.3-3.2); Glucose 208 mg/dl (74-100); Potassium 4.7 mmoL/L (3.5-5.1); Sodium 138 mmol/L (136-145); Total Protein,Serum 6.8 g/dl (6.3-8.2)
[2019-11-11 16:05] LABS: C-Reactive Protein 4.7 mg/L (0-4)
[2019-11-11 16:17] LABS: 25-OH Vitamin D, Total 27.8 ng/mL (30-100)
[2019-11-11 16:43] LABS: Erythrocyte Sedimentation Rate 39 mm/hr (0-30)
== END ==
PROVIDERS: Visit Provider Podiatrist
DX: Z01.818 Encounter for other preprocedural examination (principal); M14.672 Charcot's joint, left ankle and foot; E55.9 Vitamin D deficiency, unspecified
CPT/HCPCS: 36415; 80053; 82306; 85025; 85651; 86140

== ENCOUNTER → 2019-11-13 06:48 | Outpatient (CLI) | payer BC, SELFPAY ==
--- NOTE | 2019-11-13 07:19 | NM_ITS ---
APPROVED REPORT Exam: Nuclear Stress Test Indication: HTN, D.M., HYPERLIPIDEMIA, FM HX, C.P., SOB, FATIGUE, ABN EKG Patient Location: Outpatient Stress Tech: Patricia Sheikhnkson CT Tech:Rosalia Singh, ELIE RT(R)(N) Ht: 5 ft 5 in Wt: 237 lbs Bra Size: 44C HR: 73 bpm BP: 150/75 mmHg BSA: 2.13 m2 BMI: 39.4 History: HTN, D.M., HYPERLIPIDEMIA, FM HX, C.P., SOB, FATIGUE, ABN EKG Procedure: Patient received a 0.4 mg of intravenous Lexiscan, resting heart rate 73 bpm, resting blood pressure 150/75 mmHg, with Lexiscan maximum heart rate achived was 85 bpm which is Less than 85 % of the maximum predicted heart rate and blood pressure was 134/65 mmHg. With Lexiscan, patient denied any complaint of chest pain. Electrocardiogram Resting electrocardiogram showed sinus rhythm, with Lexiscan there is less than 1.[address] segment depression noted from the baseline EKG. The EKG portion of the Lexiscan Myoview is nondiagnostic. Cardiac Stress and Resting SPECT Images: Cardiac Stress and Resting SPECT images were obtained using technetium 99m Myoview 31.3 mCi stress and 10.97 mCi at rest. Gated SPECT for the analysis of segmental wall motion and calculation of the ejection fraction also done. Cardiac stress and resting SPECT images show reversible ischemia involving the anterior, anterior apical and anterolateral wall, computer derived ejection fraction is 50% with mild anterior apical wall hypokinesis. Right ventricle is normal size and contractility. Conclusion: 1. The EKG portion of the Lexiscan Myoview is nondiagnostic. 2. Scintigraphic evidence of reversible ischemia involving the anterior, anterior apical and anterolateral wall. Computer derived ejection fraction is 50% with mild anterior apical wall hypokinesis. Right ventricle is normal size and contractility. 3. Abnormal Lexiscan Myoview study. Electronically signed by : Sameer Garner, 11/13/2019 11:17:07
--- NOTE | 2019-11-13 09:00 | CA_ITS ---
APPROVED REPORT EXAM: Comprehensive 2D, Doppler, and color-flow Echocardiogram Sheet Metal Mechanic: Amena Moreira RVT Ht: 5 ft 5 in Wt: 237lbs BSA: 2.13 BP: 158/84 mmHg Indications: PRE-OP,CP,HTN,HLD,DM,SOA,OBESITY,GERD,LUNG DISEASE 2D Dimensions LVOT 1.94 cm (M/F) 1.5-2.5 M-Mode Dimensions RVDd 3.15 cm (0.9-2.6) LVDd 4.67 cm (3.5-5.7) LVDs 3.11 cm (3.5-5.7) IVSd 0.91 cm (0.6-1.1) PWd 0.72 cm (0.6-1.1) EF (Teich) 62.10% FS 33.40% EDV (Teich) 100.80 mL ESV (Teich) 38.20 mL LV Diastology E/A Ratio 1.15 Mitral Valve MV A Velocity 74.00 (40-130 cm/s) Left Ventricle Left atrium is mildly enlarged, left ventricle is normal size, mild concentric left ventricular hypertrophy, visually estimated ejection fraction 55% with no regional wall motion abnormality. Grade 1 diastolic dysfunction seen without tissue Doppler evidence of raise left atrial pressure. Right Ventricle Right atrium and right ventricle mildly enlarged with normal contractility. Aortic Valve Aortic valve is minimally thickened and fibrosed, there is no aortic stenosis aortic insufficiency. Mitral Valve Mitral valve leaflets are minimally thickened, there is mild mitral regurgitation. Tricuspid Valve Tricuspid valve is grossly normal, there is mild tricuspid regurgitation, tricuspid regurgitation jet velocity is inadequate for calculation of the right ventricular systolic pressure. Pulmonic Valve Pulmonic valve is poorly visualized. Great Vessels Root is normal size. Pericardium No significant pericardial effusion noted. Conclusion 1. Mild biatrial enlargement, normal left ventricular size, mild concentric left ventricular hypertrophy, visually estimated ejection fraction 55% with no regional wall motion abnormality, grade 1 diastolic dysfunction seen without tissue Doppler evidence of raise left atrial pressure. 2. Mild mitral and tricuspid regurgitation. 3. No significant pericardial effusion noted. Electronically signed by : Sameer Garner, 11/13/2019 14:42:51
--- NOTE | 2019-11-13 09:22 | CA_ITS ---
APPROVED REPORT Exam: Pharmacologic Technologist: Katie Lawler, Ht: 5 ft 5 in Wt: 237 lbs BSA: 2.13 m2 HR: 73 bpm BP: 150/75 mmHg Rhythm: SINUS RHYTHM Medical History Medical History: Diabetic ??? Noninsulin, HTN, Hyperlipidemia Medications: Lisinopril,,,,, Simvastatin,,,,, Metformin,,,,, Escitalopram,,,,, INSULIN,,,,, Albuterol,,,,, Tramadol,,,,, SpirOLACTONE,,,,, Montelukast,,,,, Metoprol,,,,, Vit D2,,,,, AmiTRIPTLine,,,,, Allergies: RANITIDINE,BUPROPION,CALCIUM Cardiac Risk Factors: HTN, Hyperlipidemia, Diabetes (non-insulin), FHX of CAD Stress Test Details Test: LEXISCAN HR Resting HR: 73 bpm Max Heart Rate (APMHR): 168 bpm Max HR Achieved: 85 bpm Target HR (85% APMHR): 142 bpm % of APMHR: 50 Recovery HR: 80 bpm BP Resting BP: 150/75 mmHg Max BP: 150/75 mmHg Recovery BP: 141.0/68.0 mmHg ECG Resting ECG: SINUS RHYTHM Clinical Exercise duration: 04:01 min Highest Stage Achieved: Stress ECG Conclusion LEXISCAN PORTION COMPLETE. PATIENT C/O SOA DURING PEAK INFUSION. NO CP. SOA DURING PEAK INFUSION. RESOLVED IN RECOVERY. NO ECTOPY. LESS THAN 1.5MM ST DEPRESSION. IMAGES TO FOLLOW Test Summary REST . . . . . . . Sitting REST 03:20 . . 73 . 150/ 75 . . Stage 1 . . . . . . . Myoview Injected Stage 1 01:00 . . 80 . . . . Stage 2 01:00 . . 84 . 127/ 60 . . Stage 3 01:00 . . 84 . 134/ 65 . . Stage 4 01:00 . . 82 . 142/ 72 . . Stage 4 01:01 . . 82 . 142/ 72 . Stop exercise at 04:01 RECOVERY 01:00 . . 82 . . . . RECOVERY 02:00 . . 80 . 138/ 71 . . RECOVERY 03:00 . . 80 . 141/ 68 . . RECOVERY 03:27 . . 79 . 141/ 68 . . Electronically signed by : Sameer Garner, 11/13/2019 11:13:43
--- NOTE | 2019-11-13 10:03 | CT_ITS ---
PROCEDURE: CT HEART W CALCIUM SCORE CLINICAL HISTORY: CP COMPARISON: CT ANGIO CHEST from 06/05/2019 TECHNIQUE: Axial images obtained with sagittal and coronal reformats. All CT scans at the facility use one or more dose reduction, viz: automated exposure control, ma/kV adjustment per patient size (including targeted exams where dose is matched to indication, i.e. head), or iterative reconstruction technique. FINDINGS: Coronary artery calcium score is 0. No identifiable atherosclerotic calcific plaque with very low cardiovascular disease risk. Incidental note is made of mild nonspecific thickening of the distal esophagus. Minimal volume loss or scarring noted in the right middle lobe medially not significantly changed from 06/05/2019 IMPRESSION: No identifiable calcific plaque with very low cardiovascular disease risk Mild nonspecific thickening of the distal esophagus Dictated by: Kofi Suarez MD 11/13/2019 17:07 Electronically signed by Kofi Suarez MD in [place] 11/13/2019 17:07
== END ==
PROVIDERS: PCP Pediatrics; Visit Provider Internal Medicine Cardiovascular Disease
DX: R07.89 Other chest pain (principal); Z01.810 Encounter for preprocedural cardiovascular examination; R06.02 Shortness of breath; R94.31 Abnormal electrocardiogram [ECG] [EKG]; E66.9 Obesity, unspecified; E78.5 Hyperlipidemia, unspecified; I10 Essential (primary) hypertension; M14.672 Charcot's joint, left ankle and foot; Z13.6 Encounter for screening for cardiovascular disorders
CPT/HCPCS: 75571; 78452; 93017; 93306; A9502; J2785

== ENCOUNTER → 2019-11-13 10:21 | Outpatient (CLI) | payer SELFPAY | PROVIDERS: PCP Pediatrics; Visit Provider Internal Medicine Cardiovascular Disease | DX: R07.89 Other chest pain (principal) | CPT/HCPCS: 75571 ==

== ENCOUNTER 2019-11-24 08:33 | Day surgery (SDC) | payer BC, SELFPAY ==
[2019-11-24] VITALS (11 sets, daily range): BP systolic 106–145; BP diastolic 60–77; PULSE 78–81; RESP 16–20; TEMP 36.6; O2SAT 92–98; BMI 39.4
[2019-11-24 10:49] LABS: Basophils % 0.4 % (0.1-2.0); Eosinophils # 0.3 K/mm3 (0.0-0.4); Eosinophils % 3.8 % (0.1-12.0); Hematocrit 37.7 % (37.0-47.0); Hemoglobin 13.1 g/dL (12.2-16.2); Lymphocytes # 1.8 K/mm3 (0.7-4.5); Lymphocytes % 26.6 % (10-50); Mean Corpuscular HGB Conc 34.8 g/dL (31.8-35.4); Mean Corpuscular Hemoglobin 30.7 pg (27.0-31.2); Mean Corpuscular Volume 88.2 fl (81-99); Mean Platelet Volume 9.2 fl (7.4-10.4); Monocytes # 0.6 K/mm3 (0.1-1.0); Monocytes % 8.3 % (1.7-9.3); Neutrophils # 4.1 K/mm3 (1.8-7.8); Neutrophils % 60.9 % (37.0-80.0); Platelet Count 205 K/mm3 (142-424); Red Blood Count 4.27 M/mm3 (4.20-5.40); White Blood Count 6.7 K/mm3 (4.8-10.8)
[2019-11-24 10:50] LABS: Chloride 99 mmol/L (98-107); Potassium 4.5 mmoL/L (3.5-5.1); Sodium 137 mmol/L (136-145)
[2019-11-24 10:53] LABS: Blood Urea Nitrogen 16 mg/dl (7-17); Creatinine Clearance Estimated 112 mL/min (50-200); Estimated Glomerular Filt Rate 58 ml/min (>60); GFR (African American) 70 ML/MIN (>60)
[2019-11-24 10:54] LABS: Anion Gap 11.5 mEq/L (5-15); Calcium 9.3 mg/dl (8.4-10.2); Carbon Dioxide 31 mmol/L (22.0-30.0); Glucose 163 mg/dl (74-100)
--- NOTE | 2019-11-24 12:00 | IR_ITS ---
APPROVED REPORT Patient Location: Outpatient PROCEDURES Left heart catheterization Left ventriculogram Selective coronary angiogram INDICATION High risk abnormal Myoview Informed consent was obtained prior to the procedure. COMPLICATIONS none Estimated Blood Loss: less than 10 mls TECHNIQUE One percent lidocaine used to anesthetize the right anterior aspect of the wrist. The right radial artery was accessed via the Seldinger technique. A 6 Spanish sheath was placed in the right radial artery. 2.5 mg of verapamil, 800 mcg of nitroglycerin, 1mg Lidocaine and 5000 U Heparin were given through the arterial sheath. The trap catheter was also used to perform left heart catheterization, left ventriculogram and selective coronary angiogram. At the end of the procedure the sheath was removed good hemostasis was achieved using Traclet band, patient was transferred to the postop holding area in stable condition. ANGIOGRAPHIC RESULTS The left main artery Normal The left anterior descending artery Normal The circumflex artery Normal The right coronary artery Dominant normal The LANGE ventriculogram reveals Hyperdynamic 70% The left ventricular end-diastolic pressure 25 mmHg IMPRESSION Normal coronary arteries Hyperdynamic ventricle consistent with diastolic dysfunction with elevated LVEDP also consistent with diastolic dysfunction PLAN 1. Medical management 2. Weight loss 3. Risk factor modification Electronically signed by : Korey Araujo, 11/24/2019 14:48:05
== END 2019-11-24 16:34 | disposition home or self-care (01) ==
LOC: CATHLAB 08:35
PROVIDERS: PCP Pediatrics; Visit Provider Internal Medicine
DX: R94.39 Abnormal result of other cardiovascular function study (principal); R94.31 Abnormal electrocardiogram [ECG] [EKG]; E66.9 Obesity, unspecified; E78.2 Mixed hyperlipidemia; I11.0 Hypertensive heart disease with heart failure; R06.02 Shortness of breath; R07.89 Other chest pain; I50.30 Unspecified diastolic (congestive) heart failure; J44.9 Chronic obstructive pulmonary disease, unspecified; Z79.4 Long term (current) use of insulin; Z79.52 Long term (current) use of systemic steroids; Z79.899 Other long term (current) drug therapy; Z79.890 Hormone replacement therapy; Z88.5 Allergy status to narcotic agent; Z88.0 Allergy status to penicillin; Z88.8 Allergy status to other drugs, medicaments and biological substances; E11.610 Type 2 diabetes mellitus with diabetic neuropathic arthropathy
CPT/HCPCS: 80048; 85025; 93458; 99152; C1725; C1769; J1644; Q9966

== ENCOUNTER → 2019-12-15 11:58 | Outpatient (CLI) | payer BC, SELFPAY ==
[2019-12-15 12:58] LABS: Basophils % 0.4 % (0.1-2.0); Eosinophils # 0.4 K/mm3 (0.0-0.4); Eosinophils % 4.5 % (0.1-12.0); Hematocrit 36.3 % (37.0-47.0); Hemoglobin 12.2 g/dL (12.2-16.2); Lymphocytes # 3.1 K/mm3 (0.7-4.5); Lymphocytes % 38.4 % (10-50); Mean Corpuscular HGB Conc 33.6 g/dL (31.8-35.4); Mean Corpuscular Hemoglobin 30.2 pg (27.0-31.2); Mean Platelet Volume 8.6 fl (7.4-10.4); Monocytes # 0.4 K/mm3 (0.1-1.0); Monocytes % 5.3 % (1.7-9.3); Neutrophils # 4.1 K/mm3 (1.8-7.8); Neutrophils % 51.4 % (37.0-80.0); Platelet Count 256 K/mm3 (142-424); Red Blood Count 4.04 M/mm3 (4.20-5.40); Red Cell Distribution Width 16.1 % (11.5-17.5); White Blood Count 7.9 K/mm3 (4.8-10.8)
[2019-12-15 13:08] LABS: Alanine Aminotransferase 14 U/L (12-78); Albumin Level 3.8 g/dl (3.5-5.0); Albumin/Globulin Ratio 1.1 (1.1-1.8); Alkaline Phosphatase 115 U/L (38-126); Anion Gap 14.7 mEq/L (5-15); Aspartate Amino Transferase 26 U/L (14-36); Bilirubin,Total 0.3 mg/dl (0.2-1.3); Blood Urea Nitrogen 21 mg/dl (7-17); Calcium 9.1 mg/dl (8.4-10.2); Carbon Dioxide 27 mmol/L (22.0-30.0); Chloride 99 mmol/L (98-107); Estimated Glomerular Filt Rate 52 ml/min (>60); GFR (African American) 63 ML/MIN (>60); Globulin 3.4 g/dL (1.3-3.2); Glucose 133 mg/dl (74-100); Potassium 4.7 mmoL/L (3.5-5.1); Sodium 136 mmol/L (136-145); Total Protein,Serum 7.2 g/dl (6.3-8.2)
[2019-12-15 13:14] LABS: C-Reactive Protein 9.5 mg/L (0-4)
[2019-12-15 13:15] LABS: Coronavirus 19 IgG Antibody Negative (Negative); Coronavirus 19 IgM Antibody Negative (Negative)
[2019-12-15 13:22] LABS: Erythrocyte Sedimentation Rate 60 mm/hr (0-30)
[2019-12-15 13:25] LABS: 25-OH Vitamin D, Total 26.4 ng/mL (30-100)
[2019-12-15 14:20] LABS: Hemoglobin A1C 9.3 % (4.0-6.0)
== END ==
PROVIDERS: Visit Provider Podiatrist
DX: Z01.818 Encounter for other preprocedural examination (principal); M25.572 Pain in left ankle and joints of left foot
CPT/HCPCS: 36415; 80053; 82306; 83036; 85025; 85651; 86140; 86328

== ENCOUNTER 2019-12-16 06:04 | Day surgery (SDC) | payer BC, SELFPAY ==
[2019-11-16 11:24] VITALS: BMI 39.4
[2019-12-16] VITALS (12 sets, daily range): BP systolic 128–140; BP diastolic 68–77; PULSE 70–82; RESP 16–18; TEMP 36.6–43; O2SAT 91–97
[2019-12-16 07:02] LABS: POC Glucose,Bedside 85 (70-110)
--- NOTE | 2019-12-16 08:30 | SUR.OPER ---
0809-family updated at this time
--- NOTE | 2019-12-16 08:36 | HMH.ANESCL ---
[facility] Anesthesia Checklist - Patient Identification Patient Identification: Arm Band - Structural Data Admitted From: Home Planned Operative Procedure/s: Left Foot hardware removal- see consent Consent for Planned Operative Procedure(s) Verified: Yes Verified Documents: Surgical Consent, History and Physical - NPO Status Verified Time NPO: 00:00 - Additional verifications Anesthesia Reactions: No Hx Blood Transfusions: No Blood Transfusion Reaction: No - Airway Assessment C-Spine Mobility Assessed: Yes (mp2) TMJ Mobility Assessed: Yes Dentition: Good Dentition - Neurological Assessment Level of Consciousness: Awake, Alert - Anesthesia Plan Anesthesia Risk discussed: Yes Anesthesia Plan: Verified ASA Class: III Anesthesia Type: General w/block [facility] History I have reviewed the patient's past medical history: Yes Medical History: Reports:: Asthma, Coronary Artery Disease, Gastroesophageal Reflux Disease(GERD), Hyperlipidemia, Hypertension, Lung Disease (freddy), Migraine, MRSA Denies:: Atrial Fibrillation, Cancer, Chronic Obstructive Pulmonary Disease (COPD), Cerebrovascular Accident, Diabetes Mellitus Type 1, Diabetes Mellitus Type 2, Internal Pacemaker, Myocardial Infarction, Seizures *Have you ever received a pneumonia vaccine?: Yes *Have you received a flu vaccine this season?: Yes Other Medical History: Denies: Blood Transfusion Reaction Anesthesia experience/problems:: nac Laterality Cases: Right: Breast Biopsy, Bilateral: Carpal Tunnel Release, Other Other Surgeries: Yes: Appendectomy, Cardiac Catheterization, Cholecystectomy, Colonoscopy, , Hysterectomy-Total, Tubal Ligation, Other. No: Pacemaker Amputation: No Fractures: Yes - *Social History Smoking Status: Former smoker Tobacco Type: cigarettes #Yrs smoked (if former smoker): 15 Alcohol Intake: never Alcohol Intake Frequency:: holidays/special occasions only Substance Use Type: denies use *Occupational Status:: employed Housing: house Household Members: spouse *Travel in the last 8 weeks: None Family Hx:: Cancer, Diabetes, Hypertension, Asthma
--- NOTE | 2019-12-16 11:06 | SUR.OPER ---
1107-family updated at this time
--- NOTE | 2019-12-16 11:30 | XR_ITS ---
PROCEDURE: XR FOOT LT MIN 3V CLINICAL INDICATION: Post op L Charcot Follow-up surgery COMPARISON: CR XR FOOT WT BEARING RT 3V from 02/03/2019 CR XR FOOT WT BEARING LT 3V from 04/23/2019 CR XR FOOT WT BEARING LT 3V from 10/07/2019 CR XR FOOT WT BEARING RT 3V from 10/07/2019 CR XR ANKLE LT MIN 3V from 12/16/2019 FINDINGS: There is an external fixator in place with the kj through the calcaneus stabilizing the fixator. There has been interval removal of the anterior tibial bone plate and the plate at the talus navicular cuneiform and 1st metatarsal. There are some residual densities at the 1st metatarsal consistent with antibiotic beads or hyperostosis. Long screws are present through the 1st metatarsal into the of mid cuneiform navicular and talus with an additional long screw at the 5th metatarsal region. There are 2 screws within the proximal shaft of the tibia also stabilizing the external fixator which is anterior to the leg. 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 There is pes planus. IMPRESSION: Postsurgical changes as described above. Alignment is maintained. Please see above for detailed Dictated by: Kofi Suarez MD 12/16/2019 13:42 Kofi Suarez MD in [place] 12/16/2019 13:42
--- NOTE | 2019-12-16 12:44 | P.PN_ITS ---
[facility] Anesthesia Record Part I Intake, IV Amount: 2,000 Estimated blood loss (mL): 50 Urine output (mL): 200 Blood Pressure: 128/75 SaO2: 91 Pulse Rate: 79 Respiratory Rate: 16 Temperature: 98.1 F Patient is:: Drowsy, Stable Stable to PACU at:: 12:40
--- NOTE | 2019-12-16 12:45 | HMH.OPNOTE ---
Date of procedure: 12/16/19 Pre-op Diagnosis:: 1. Left Charcot (arthrodesis) non-union 2. Left retained orthopedic hardware 3. Left ankle synovitis 4. Left ankle pain 5. Left ankle edema, rule out infection Post-op Diagnosis:: Same Procedure performed:: 1. Left hardware removal 2. Left revision of Charcot non-union 3. Left application of multiplanar ex fix application 4. Left ankle synovectomy 5. Left ankle, foot debridement 6. Left bone biospy (tibia, talus, medial foot) 7. Application of antibiotics, bone graft Surgeon:: Aure Bee DPM INFORMATICS SPEC:: Poncho Sorenson Anesthesia: GETA, regional (Left popliteal, saph nerve block) Estimated blood loss (mL): 50 Clinical Note:: Mrs. Guallpa is a 53-year-old female who presents for surgical evaluation for revision of a Charcot reconstruction arthrodesis nonunion. Imaging reviewed and discussed with the patient. Conservative treatment discussed , patient has been immobilized in fracture boot, brace, nonweightbearing with crutches, modification of activity, ice, elevation, NSAIDs and still has symptoms. I explained that the hardware and pain will not resolve without surgery. I explained that she likely had an asymptomatic nonunion and when she tripped in the shower it could have fractured through the fusion site/screw. I also explained that infection could be the cause of hardware failure and nonunion. The patient recently saw her PCP, Dr. Juan Tabares who changed her diabetic medication due to an increase in her hemoglobin A1c to 12%. I explained the higher the blood sugar the more risk of potential complication, with bone and skin healing, increased infection risk. We discussed surgery. I discussed staging surgery due to the potential infection, length of case/anesthesia and gives time for the average blood sugar to decrease. The first stage would be outpatient, to include hardware removal and bone biopsies to check for underlying infection, application of external fixation device to stabilize nonunion site. Second stage would be 23h observation, to include revision of nonunion with bone grafting, ex fix application. All risks and benefits were discussed including but not limited to: damage to blood vessels and nerves, bleeding, infection, wound complications, delayed, mal or non-union of bone, post-traumatic arthritis, need for further surgery, need for removal of implant, prolonged swelling of the extremity, prolonged pain, CRPS/RSD, DVT, and anesthetic complications. No guarantees were given. All questions fully answered. The patient verbalized understanding and agreed to proceed with surgery. Consent was obtained. Necessary labs and pre-op testing ordered: CBC, CMP, ESR, CRP, vit D, EKG, CXR, COVID test. She has crutches and walker at home. e-Rx Flexeril 5mg #30, Ibuprofen 800mg #60, Tramadol 50mg #30, Zofran 4mg, Doxycycline 100mg BID x 2 weeks. Patient will need DVT prophylaxis after the 2nd stage procedure. She has used Lovenox after other surgeries. Cardiology clearance and medical clearance per PCP, Dr. Juan Tabares. Operative findings:: The skin incisions are all well-healed with no evidence of opening. There was no open lesions, no tracks or drainage noted. There was fibrotic synovitic scar tissue noted to the left foot, ankle and medial foot incisions. The medial column plate was removed. There was no evidence of infection, just thick scar tissue. The ankle joint and the subtalar joint were obvious nonunions with mobility noted. Ankle plate and screws removed. There was one broken screw extending from the lateral tibia into the medial lateral aspect of the talus. Both pieces of the broken screw were removed in total. Obvious nonunion of the subtalar joint as well as the ankle joint. Talus was hard and sclerotic. No cartilage noted to the ankle or subtalar joints. No purulent drainage from the bone. The case took 2 hours longer than normal due to the revisional nature of the procedure and the fact that the patie
[2019-12-16 12:51] LABS: POC Glucose,Bedside 181 (70-110)
--- NOTE | 2019-12-16 13:43 | XR_ITS ---
PROCEDURE: XR ANKLE LT 2V CLINICAL INDICATION: REMOVAL OF HARDWAREE, EXTERNAL FIXATOR COMPARISON: No exams were available for comparison FINDINGS: Fluoroscopy time: 3 minutes and 45 seconds Fluoroscopy is utilized for removal of the anterior tibial and the anterior medial foot bone plates as well as the calcaneal screws. The entire fractured screw in the tibial talar region was also removed. External fixator was also placed under fluoroscopy IMPRESSION: Status post hardware removal Dictated by: Kofi Suarez MD 12/16/2019 14:38 Kofi Suarez MD in [place] 12/16/2019 14:38
[2019-12-16 13:54] LABS: Microscopic,Cath URINE MICROSCOPIC (MICROSCOPIC)
[2019-12-16 13:59] LABS: Appearance,Urine/Cath CLEAR (Clear); Bilirubin,Cath Negative (Negative); Blood, Urine/Cath Negative (Negative); Color,Urine/Cath YELLOW (Yellow); Glucose,Urine/Cath (UA) Negative (Negative); Ketones,Urine/Cath Negative (Negative); Leukocyte Esterase,Cath TRACE (Negative); Nitrate,Cath Negative (Negative); Protein,Urine/Cath 1+ (Negative); Specific Gravity, Urine/Cath 1.015 (1.005-1.030); Urobilinogen,Cath 0.2 EU/dl (0.2)
[2019-12-16 14:10] LABS: Bacteria,Urine/Cath TRACE /lpf; RBC,Urine/Cath Occasional # /hpf (0-3)
--- NOTE | 2019-12-16 14:14 | PC.NURSE ---
1246-checked fsbs with results of 181-notified CUSTOMER SERVICE ADVISOR with no further orders given at this time 1259-radiology at bedside 1305-Dr. Bee at bedside 1308-detailed report called to DANIEL Ballard 1310-pt transported to post op via stretcher w/suyapa rails up and left in care of DANIEL Ballard with bed locked in lowest position, vss, pt stable
--- NOTE | 2019-12-16 14:25 | HMH.ANESII ---
[facility] Anesthesia Record Part II Discharge Time: 13:10 Destination: Surgical Day Care (OP Surgery) PACU nurse assessment reviewed?: Yes Patient Condition:: Good Anesthesia Complications:: None Swallowing reflex intact?: Yes Cyanosis?: No Blood Pressure: 131/72 Pulse Rate: 77 Temperature: 98 F Mental Status: Alert & Oriented Pain level:: 0 Nausea and/or vomitting:: None Intake, IV Amount: 0
== END 2019-12-16 13:55 | disposition home or self-care (01) ==
LOC: OR 06:06
PROVIDERS: PCP Pediatrics; Visit Provider Podiatrist
PROC: (CPT 20680; principal; 2019-12-16 07:30)
DX: T84.213A Breakdown (mechanical) of internal fixation device of bones of foot and toes, initial encounter (principal); M96.0 Pseudarthrosis after fusion or arthrodesis; E11.610 Type 2 diabetes mellitus with diabetic neuropathic arthropathy; E78.5 Hyperlipidemia, unspecified; I10 Essential (primary) hypertension; I25.10 Atherosclerotic heart disease of native coronary artery without angina pectoris; Z88.0 Allergy status to penicillin; Z88.5 Allergy status to narcotic agent; Z88.8 Allergy status to other drugs, medicaments and biological substances; Z79.51 Long term (current) use of inhaled steroids; Z79.82 Long term (current) use of aspirin; Z79.890 Hormone replacement therapy; Z79.899 Other long term (current) drug therapy; Z47.2 Encounter for removal of internal fixation device; Z91.81 History of falling; Z79.4 Long term (current) use of insulin
CPT/HCPCS: 20680; 27625; 27620; 20692; 73600; 73610; 73630; 76000; 81001; 82962; 87070; 87075; 87077; 87086; 87088; 87186; 87205; 96374; C1713; J2405; J2710; J3370

== ENCOUNTER → 2020-01-04 09:31 | Outpatient (CLI) | payer BC, SELFPAY ==
[2020-01-04 09:57] LABS: Basophils % 0.4 % (0.1-2.0); Eosinophils # 0.3 K/mm3 (0.0-0.4); Eosinophils % 3.3 % (0.1-12.0); Hematocrit 38.2 % (37.0-47.0); Hemoglobin 12.5 g/dL (12.2-16.2); Lymphocytes # 3.5 K/mm3 (0.7-4.5); Lymphocytes % 38.8 % (10-50); Mean Corpuscular HGB Conc 32.6 g/dL (31.8-35.4); Mean Corpuscular Hemoglobin 29.2 pg (27.0-31.2); Mean Corpuscular Volume 89.6 fl (81-99); Mean Platelet Volume 9.4 fl (7.4-10.4); Monocytes # 0.5 K/mm3 (0.1-1.0); Monocytes % 5.3 % (1.7-9.3); Neutrophils # 4.7 K/mm3 (1.8-7.8); Neutrophils % 52.2 % (37.0-80.0); Platelet Count 295 K/mm3 (142-424); Red Blood Count 4.26 M/mm3 (4.20-5.40); Red Cell Distribution Width 15.6 % (11.5-17.5)
[2020-01-04 10:31] LABS: Erythrocyte Sedimentation Rate 63 mm/hr (0-30)
[2020-01-04 10:32] LABS: Chloride 99 mmol/L (98-107); Potassium 4.9 mmoL/L (3.5-5.1); Sodium 136 mmol/L (136-145)
[2020-01-04 10:34] LABS: Blood Urea Nitrogen 29 mg/dl (7-17); Estimated Glomerular Filt Rate 52 ml/min (>60); GFR (African American) 63 ML/MIN (>60)
[2020-01-04 10:35] LABS: Alanine Aminotransferase 10 U/L (12-78); Albumin Level 3.5 g/dl (3.5-5.0); Albumin/Globulin Ratio 1.1 (1.1-1.8); Alkaline Phosphatase 125 U/L (38-126); Anion Gap 12.9 mEq/L (5-15); Aspartate Amino Transferase 20 U/L (14-36); Bilirubin,Total 0.3 mg/dl (0.2-1.3); Carbon Dioxide 29 mmol/L (22.0-30.0); Globulin 3.3 g/dL (1.3-3.2); Total Protein,Serum 6.8 g/dl (6.3-8.2)
[2020-01-04 10:36] LABS: Calcium 9.1 mg/dl (8.4-10.2); Glucose 165 mg/dl (74-100)
[2020-01-04 10:41] LABS: C-Reactive Protein 14.9 mg/L (0-4)
[2020-01-04 11:09] LABS: Coronavirus 19 IgG Antibody Negative (Negative); Coronavirus 19 IgM Antibody Negative (Negative)
[2020-01-04 11:18] LABS: Hemoglobin A1C 9.1 % (4.0-6.0)
== END ==
PROVIDERS: Visit Provider Podiatrist
DX: Z01.818 Encounter for other preprocedural examination (principal); Z20.828 Contact with and (suspected) exposure to other viral communicable diseases; I10 Essential (primary) hypertension; E11.9 Type 2 diabetes mellitus without complications; E78.5 Hyperlipidemia, unspecified
CPT/HCPCS: 36415; 80053; 83036; 85025; 85651; 86140; 86328

== ENCOUNTER 2020-01-06 14:41 | Observation (INO) | payer BC, SELFPAY ==
[2020-01-04 11:39] VITALS: BMI 36.6
[2020-01-06] VITALS (22 sets, daily range): BP systolic 115–157; BP diastolic 51–83; PULSE 81–92; RESP 13–18; TEMP 36.4–43; O2SAT 90–98
[2020-01-06 08:16] LABS: POC Glucose,Bedside 110 (70-110)
--- NOTE | 2020-01-06 08:25 | P.PN_ITS ---
[facility] Anesthesia Checklist - Patient Identification Patient Identification: Arm Band, Verbal (Name & ) - Structural Data Admitted From: Home Planned Operative Procedure/s: left marty Consent for Planned Operative Procedure(s) Verified: Yes Verified Documents: History and Physical - NPO Status Verified Time NPO: 00:00 - Chart Verification Results Verified: CBC, BMP - Additional verifications Patient : No Anesthesia Reactions: No Hx Blood Transfusions: No Blood Transfusion Reaction: No Cephalosporin Allergy: No Previous Colonoscopy: No - Cardiovascular Assessment Heart Sounds: S1 & S2 Pulse Strength: Baseline Pulse Rhythm: Regular Peripheral Edema: No - Airway Assessment C-Spine Mobility Assessed: Yes TMJ Mobility Assessed: Yes Dentition: Good Dentition - Neurological Assessment Level of Consciousness: Awake, Alert, Appropriate Hx Seizures: No Numbness or tingling in extremities: No - Anesthesia Plan Anesthesia Risk discussed: Yes Anesthesia Plan: Verified ASA Class: III Anesthesia Type: MAC [facility] History I have reviewed the patient's past medical history: Yes Medical History: Reports:: Asthma, Coronary Artery Disease, Diabetes Mellitus Type 2, Gastroesophageal Reflux Disease(GERD), Hyperlipidemia, Hypertension, Lung Disease, Migraine, MRSA (2019) Denies:: Atrial Fibrillation, Cancer, Chronic Obstructive Pulmonary Disease (COPD), Cerebrovascular Accident, Diabetes Mellitus Type 1, Internal Pacemaker, Myocardial Infarction, Seizures *Have you ever received a pneumonia vaccine?: No *Have you received a flu vaccine this season?: No Other Medical History: Denies: Blood Transfusion Reaction Anesthesia experience/problems:: none Laterality Cases: Right: Breast Biopsy, Bilateral: Carpal Tunnel Release, Other Other Surgeries: Yes: No Previous Surgery, Appendectomy, Cardiac Catheterization, Cholecystectomy, Colonoscopy, , Hysterectomy-Total, Tubal Ligation, Other. No: Pacemaker Amputation: No Fractures: Yes - *Social History Last grade of school completed: Advanced degree Smoking Status: Never smoker Tobacco Type: cigarettes #Yrs smoked (if former smoker): 15 Alcohol Intake: never Alcohol Intake Frequency:: holidays/special occasions only Substance Use Type: denies use *Occupational Status:: employed Housing: house Household Members: spouse *Travel in the last 8 weeks: None Family Hx:: Cancer, Diabetes, Hypertension, Asthma
--- NOTE | 2020-01-06 10:55 | SUR.OPER ---
0953-Time out performed per DANIEL Tesfaye, surgical team agreed, removal of external fixation device procedure started 1015-additional time out performed at this time per DANIEL Tesfaye, surgical team agreed 1017-surgical incision made at this time per Dr. Bee
[2020-01-06 12:22] LABS: Microscopic,Cath URINE MICROSCOPIC (MICROSCOPIC)
--- NOTE | 2020-01-06 12:24 | SUR.OPER ---
1151-family updated at this time
--- NOTE | 2020-01-06 12:33 | HMH.ORTHHP ---
*Admission Date: 01/06/20 <Ariane Rasheed - 01/06/20 13:13> *Reason for consult:: Charcot Reconstruction <Ariane Rasheed - 01/06/20 13:13> *History of present illness: Patient did have the staged left Charcot reconstruction today. No intraoperative complications. Patient will be admitted per podiatry service for 23-hour observation for postop pain control and monitoring. Dr. Og is MD on-call consulted for medical management of diabetes and hypertension and comorbidities as needed. Since her surgery 12/16/2019 she has been taking ibuprofen for pain. She has DME. She will need Lovenox at the time of discharge. <CristalAvinashAure - 01/06/20 14:50> Mrs. Guallpa is a 53-year-old female who presents today for a staged revision of a Charcot reconstruction arthrodesis nonunion. Imaging reviewed and discussed with the patient. The patient recently saw her PCP, Dr. Juan Tabares who changed her diabetic medication due to an increase in her hemoglobin A1c to 12%. I explained the higher the blood sugar the more risk of potential complication, with bone and skin healing, increased infection risk. We discussed surgery. I discussed staging surgery due to the potential infection, length of case/anesthesia and gives time for the average blood sugar to decrease. The first stage would be outpatient, to include hardware removal and bone biopsies to check for underlying infection, application of external fixation device to stabilize nonunion site. Second stage would be 23h observation, to include revision of nonunion with bone grafting, ex fix application. All risks and benefits were discussed including but not limited to: damage to blood vessels and nerves, bleeding, infection, wound complications, delayed, mal or non-union of bone, post-traumatic arthritis, need for further surgery, need for removal of implant, prolonged swelling of the extremity, prolonged pain, CRPS/RSD, DVT, and anesthetic complications. No guarantees were given. All questions fully answered. The patient verbalized understanding and agreed to proceed with surgery. Consent was obtained. Repeat labs and pre-op testing ordered: CBC, CMP, ESR, CRP, vit D, COVID test week of surgery. She has crutches and walker at home. Continue Rx Flexeril 5mg #30, Ibuprofen 800mg #60, Tramadol 50mg #30, Zofran 4mg prn. Patient will need DVT prophylaxis. She has used Lovenox after other surgeries. Will plan to discuss with cardiology for recommendations: Lovenox versus Xarelto. Had appointment with cardiology Dr. PUENTE on 12/31/2019. Plan surgery for in two stages: 1st stage: 12/16/19, 2nd stage: in 2 weeks 2nd stage-23 hour observation: 01/06/20 (Modifier 58: stage related procedure) 1. Left revision of Charcot reconstruction, revision of non-union 2. Left application of circular external fixation device (vs. multiplanar ex fix application) 3. Left tibial talar calcaneal arthrodesis (TTC: ankle and subtalar joint fusion) 4. Left bone marrow aspiration, bone autograft harvest 5. Left bone biospies 6. Left ankle arthrotomy, possible posterior capsule release 7. Left possible fibular osteotomy 8. Left possible CLINT 9. Left possible fibular osteotomy <Ariane Rasheed 01/06/20 13:15> [facility] History I have reviewed the patient's past medical history: Yes <Ariane Rasheed 01/06/20 13:13> Medical History: Reports:: Asthma, Coronary Artery Disease, Diabetes Mellitus Type 2, Gastroesophageal Reflux Disease(GERD), Hyperlipidemia, Hypertension, Lung Disease, Migraine, MRSA (2019) Denies:: Atrial Fibrillation, Cancer, Chronic Obstructive Pulmonary Disease (COPD), Cerebrovascular Accident, Diabetes Mellitus Type 1, Internal Pacemaker, Myocardial Infarction, Seizures <Ariane Rasheed 01/06/20 13:13> *Have you ever received a pneumonia vaccine?: No <Ariane Rasheed 01/06/20 13:13> *Have you received a flu vaccine this season?: No <Ariane Rasheed 01/06/20 13:13> Other Medical History: Denies: Blood Transfusion Silvia
[2020-01-06 12:36] LABS: Appearance,Urine/Cath CLEAR (Clear); Bilirubin,Cath Negative (Negative); Blood, Urine/Cath Negative (Negative); Color,Urine/Cath YELLOW (Yellow); Glucose,Urine/Cath (UA) Negative (Negative); Ketones,Urine/Cath Negative (Negative); Leukocyte Esterase,Cath Negative (Negative); Nitrate,Cath POSITIVE (Negative); Protein,Urine/Cath 1+ (Negative); Specific Gravity, Urine/Cath 1.015 (1.005-1.030); Urobilinogen,Cath 0.2 EU/dl (0.2)
[2020-01-06 13:10] LABS: Bacteria,Urine/Cath 3+ /lpf; RBC,Urine/Cath Occasional # /hpf (0-3); Squamous Epithelial Ur./Cath Occasional #/hpf (0-5)
--- NOTE | 2020-01-06 14:21 | XR_ITS ---
PROCEDURE: XR CALCANEUS LT MIN 2V CLINICAL INDICATION: post op charcot Follow-up surgery/fusion COMPARISON: CR XR ANKLE LT MIN 3V from 12/16/2019 CR XR ANKLE LT 2V from 01/06/2020 CR XR ANKLE LT MIN 3V from 01/06/2020 FINDINGS: There is an external fixator device in place which was placed in the OR. An anterior bone plate is present at the distal tibia curve distally at the talus with fusion of the tibiotalar joint. There is a posterior screw present through the calcaneus into the talus. Longitudinal screws remain present through the 1st and 4th metatarsals. There is good alignment of the generalized bony structures. IMPRESSION: Status post fusion of the ankle joint and posterior talocalcaneal joint with external fixator present as detailed above with good alignment Dictated by: Kofi Suarez MD 01/06/2020 15:53 Kofi Suarez MD in [place] 01/06/2020 15:53
--- NOTE | 2020-01-06 14:37 | HMH.ANESI ---
[facility] Anesthesia Record Part I Intake, IV Amount: 1,700 Estimated blood loss (mL): 20 Urine output (mL): 200 Blood Products used (#): none Blood Pressure: 145/74 SaO2: 94 Pulse Rate: 82 Respiratory Rate: 18 Temperature: 98.0 F Patient is:: Drowsy, Nasal O2, Stable Stable to PACU at:: 14:33
--- NOTE | 2020-01-06 15:47 | HMH.OPNOTE ---
Date of procedure: 01/06/20 Pre-op Diagnosis:: 12/16/19: s/p left HWR, alejandrina multiplanar ex fix, ankle synovectomy, debridement, bone biospy (tibia, talus, medial foot), alejandrina of antibiotics, bone graft 1. Left Charcot neuroarthropathy 2. Status post left application of external fixation device 3. Retained orthopedic hardware 4. Type 2 diabetes mellitus with Charcot's joint of left foot 5. Synovitis of left ankle 6. Edema of left lower extremity 7. Obesity, Class II, BMI 35-39.9 Post-op Diagnosis:: Same Procedure performed:: 1. Left external fixation device removal, suture removal 2. Left revision of Charcot reconstruction, revision of non-union 3. Left application of new multiplanar ex fix application 4. Left ankle arthrodesis 5. Left subtalar joint arthrodesis 6. Left ankle synovectomy 7. Left application of bone graft 8. Application of amniotic tissue graft 9. Application of Prevena incisional wound VAC Surgeon:: Aure Bee DPM Lyric Writer(s):: Rosalia Espinal ACUTE CARE NURSING ASSISTANT:: Poncho Ruiz Anesthesia: GETA, regional (Left popliteal, saph nerve block) Estimated blood loss (mL): 50 Clinical Note:: PRE OP LEFT ANKLE NON-UNION, CHARCOT: CT LEFT FOOT, ANKLE 10/20/19 FINDINGS: Anterior bone plate is noted at the distal tibia with a curved component along the anterior aspect of the talus. The screw within the talus portion of the bone plate is not flush with the plate distracted proximally by approximately 3 mm with lucency around the distal aspect of the screw at the neck of the talus. This suggests loosening of the screw. A there are 2 long lag screws from the posterior calcaneus into the talus. Subchondral cystic changes are present at the distal aspect of the tibia at the tibial plafond. There is a fractured screw extending from the lateral aspect of the distal tibia into the talus. The distal aspect of the fractured screws displaced medially by approximately 2.5 mm. There is some lucency noted around this screw. The ankle joint space remains present without evidence of fusion. There is some irregularity of the talar dome.. The subtalar joint has not fused. There is a long lag screw extending from the distal aspect of the 1st metatarsal into the medial cuneiform and navicular with fusion of the 1st metatarsal tarsal joint and navicular cuneiform joint. The navicular talar joint however is not fused. The screw also extends into the distal aspect of the talus with some lucency around the screw at this area. There is a medial bone plate at the tail 0 navicular medial cuneiform and 1st metatarsal region. There is some lucency around the screws at the talar region. No acute fracture or dislocation. No abscess. There is generalized soft tissue swelling. Soft tissue swelling is most prominent along the lateral aspect of the ankle and dorsal lateral foot. IMPRESSION: 1. Extensive ankle and foot surgery as detailed above with triple arthrodesis of the talonavicular and cuneiform joint and talocalcaneal arthrodesis as well as arthrodesis of the tibiotalar joint. 2. Tthere has been failure of fusion of the ankle joint and subtalar joint and the talonavicular joint. 3. There is lucency around multiple screws at the talus and distal tibia as described above which may be related to loosening of the prosthesis. Infection may also cause lucency around the screws. 4. There is fracture of a tibial talar screw. Mrs. Guallpa is a 53-year-old female who presents for POV and pre-op for staged revision of a Charcot reconstruction arthrodesis nonunion. Imaging reviewed and discussed with the patient. The patient recently saw her PCP, Dr. Juan Tabares who changed her diabetic medication due to an increase in her hemoglobin A1c to 12%. I explained the higher the blood sugar the more risk of potential complication, with bone and skin healing, increased infection risk. We discussed surgery. I discussed staging surgery due to the potential infection, length of case/anesthesia and gives time
[2020-01-06 16:00] LABS: Creatinine Clearance Estimated 73 mL/min (50-200); Estimated Glomerular Filt Rate 39 ml/min (>60); GFR (African American) 48 ML/MIN (>60)
--- NOTE | 2020-01-06 16:42 | P.PN_ITS ---
[facility] Anesthesia Record Part II Discharge Time: 15:03 Destination: Medical Surgical Department PACU nurse assessment reviewed?: Yes Patient Condition:: Good Anesthesia Complications:: None Swallowing reflex intact?: Yes Cyanosis?: No Blood Pressure: 157/82 Pulse Rate: 82 Temperature: 98.0 F Mental Status: Alert & Oriented Pain level:: 0 Nausea and/or vomitting:: None Intake, IV Amount: 25
--- NOTE | 2020-01-06 18:44 | PC.NURSE ---
PATIENT ARRIVED ON FLOOR VIA BED WITH WOUND VAC INTACT. [place] GENTILE, A DIRECTOR [facility] PROVIDED EDUCATION TO THIS RN AND PATIENT'S SPOUSE ON DEVICE. PATIENT HAS HAD NO COMPLAINT OF PAIN. TOLERATED MEALS WELL. NO NEW CONCERNS AT THIS TIME.
--- NOTE | 2020-01-06 19:10 | PC.NURSE ---
report given to veto
--- NOTE | 2020-01-06 20:07 | PC.NURSE ---
Spoke with Cristal EMANUEL. Verbal order for Low Intensity SSI ACHS for this admission. Okay to place Ice pack behind left knee versus polar pack due to pt already having one at home for use after d/c.
[2020-01-06 20:29] LABS: POC Glucose,Bedside 461 (70-110)
--- NOTE | 2020-01-06 20:40 | PC.NURSE ---
Spoke with MD Xochilt director of dementia operations. Gave orders for High intensity scale insulin ACHS and admin 30 units for a GLU noted at 461.
[2020-01-07] VITALS: BP 128/58; PULSE 90; RESP 16; TEMP 36.9; O2SAT 97
--- NOTE | 2020-01-07 02:27 | PC.NURSE ---
Addendum entered by Nola Gastelum RN 01/07/20 05:45: Wound vac in place to left foot. Original Note: Pt is alert and oriented x4. Pt restless t/o shift thus far, states she slept all day. C/o mild pain to left foot, rating pain at most a 6/10 on pain scale. Administered Toradol DESTINY per JUN. Pt states adequate pain relief with Toradol. Administered Diazepam per JUN x1 thus far for relief of muscle spasms in left foot. Upon reassessment pt denies any further spasms. PERRLA. Bilateral hand warehouse person noted equal and strong. Cap refill < 3 seconds. Bilateral breath sounds noted clear t/o upon auscultation. Tolerated RA well with no c/o SOA. O2 sats remain > 92% on RA. Active bowel sounds noted in all 4 quads upon auscultation. Pt's appetite is very good. Requested several snacks t/o night after eating two large dinner meals. Sugar free snacks/drinks administered. Upon received report from day shift RN, this RN noticed the pt eating fast food from [facility]. Provided further education on her diabetic diet and strongly encouraged for pt to follow dietary guidelines with outside food being brought in. Pt verbalized understanding. Upon checking pt's GLU at 2100, noted at 461. Administered 30 units after calling MD for orders per protocol for SSI. Dsg to LLE noted c/d/i. Pt still unable to move digits to LLE due to nerve block. Ice pack behind left knee kept in place t/o shift. Elevated LLE on pillow while lying in bed. VSS. Remains safe. Call light within in reach. Will continue to monitor.
[2020-01-07 04:00] VITALS: BP 145/75; PULSE 86; RESP 17; TEMP 36.7; O2SAT 94
[2020-01-07 05:09] VITALS: BMI 39.2
[2020-01-07 05:35] LABS: POC Glucose,Bedside 311 (70-110)
[2020-01-07 06:49] LABS: Basophils % 0.2 % (0.1-2.0); Eosinophils # 0.1 K/mm3 (0.0-0.4); Eosinophils % 0.5 % (0.1-12.0); Hematocrit 33.4 % (37.0-47.0); Hemoglobin 11.1 g/dL (12.2-16.2); Lymphocytes # 1.7 K/mm3 (0.7-4.5); Lymphocytes % 15.7 % (10-50); Mean Corpuscular HGB Conc 33.3 g/dL (31.8-35.4); Mean Corpuscular Hemoglobin 29.7 pg (27.0-31.2); Mean Corpuscular Volume 89.2 fl (81-99); Mean Platelet Volume 9.5 fl (7.4-10.4); Monocytes # 0.6 K/mm3 (0.1-1.0); Monocytes % 5.5 % (1.7-9.3); Neutrophils # 8.7 K/mm3 (1.8-7.8); Neutrophils % 78.2 % (37.0-80.0); Platelet Count 235 K/mm3 (142-424); Red Blood Count 3.74 M/mm3 (4.20-5.40); Red Cell Distribution Width 15.7 % (11.5-17.5); White Blood Count 11.1 K/mm3 (4.8-10.8)
[2020-01-07 07:05] LABS: Alanine Aminotransferase 19 U/L (12-78); Albumin Level 3.3 g/dl (3.5-5.0); Alkaline Phosphatase 154 U/L (38-126); Anion Gap 14.7 mEq/L (5-15); Aspartate Amino Transferase 50 U/L (14-36); Bilirubin,Total 0.2 mg/dl (0.2-1.3); Blood Urea Nitrogen 37 mg/dl (7-17); Calcium 8.3 mg/dl (8.4-10.2); Carbon Dioxide 26 mmol/L (22.0-30.0); Chloride 98 mmol/L (98-107); Creatinine Clearance Estimated 84 mL/min (50-200); Estimated Glomerular Filt Rate 43 ml/min (>60); GFR (African American) 52 ML/MIN (>60); Globulin 3.4 g/dL (1.3-3.2); Glucose 323 mg/dl (74-100); Potassium 4.7 mmoL/L (3.5-5.1); Sodium 134 mmol/L (136-145); Total Protein,Serum 6.7 g/dl (6.3-8.2)
[2020-01-07 07:16] VITALS: BP 146/70; PULSE 86; RESP 20; TEMP 36.7; O2SAT 98
[2020-01-07 07:28] LABS: Erythrocyte Sedimentation Rate 84 mm/hr (0-30)
--- NOTE | 2020-01-07 08:00 | HMH.DCSUM ---
General - General Admission date:: 01/06/20 Discharge date: 01/07/20 HPI HPI: As well as a 54-year-old diabetic female who presents for admission 01/06/2020 status post left revisional Charcot reconstruction. She was admitted overnight for pain control and monitoring. Patient is resting comfortably in bed this morning with no complaints. Denies N/V, F/C, SOB/CP. Incisional wound VAC in place with minimal output. Patient denies pain. Ice behind the left knee and incentive spirometer at the bedside. Hospital Course Hospital Course: Relatively uneventful hospital course. Patient did have a spike in her blood sugar last night into the 400s. She was given insulin per Dr. Carla EMANUEL on-call. Patient has follow-up with her PCP Dr. Juan Tabares outpatient for further monitoring and treatment of her diabetes. Objective Vital signs: Temp Pulse Resp BP Pulse Ox 98.1 F 86 20 146/70 H 98 01/07/20 07:16 01/07/20 07:16 01/07/20 07:16 01/07/20 07:16 01/07/20 07:16 no acute distress, obese - *Routine HEENT Exam Head: Present: normocephalic Eye: Present: EOMI, PERRL ENT: Present: mucous membranes moist - *Routine Neck Exam Present: supple - *Routine Respiratory Exam Present: accessory muscle use - *Routine Cardiovascular Exam Present: RRR - *Routine Abdominal Exam Present: soft, obese - *Routine Rectal Exam Patient deferred: visual exam - *Routine Exam Patient deferred: external exam - *Routine Extremities Exam Present: edema. Absent: calf tenderness - Routine Back/Spine/Pelvis Exam Back/Spine: Present: full ROM - *Routine Skin Exam Present: dry, warm - *Routine Neurological Exam Present: alert, oriented X3, moving all extremities - Routine Psychiatric Exam Present: normal affect - Detailed Lower Extremity Exam Comments: Left lower extremity elevated on pillows. External fixation device and dressings clean dry and intact. Cap fill time at baseline. Motor function and light touch sensation decreased secondary to regional nerve block. No calf or thigh pain noted. No complaints or visible spasms at this time. Incisional wound VAC in place with minimal output drainage. Results Labs on day of discharge: Labs from last 24 hours 09/17/20 09/17/20 09/17/20 06:31 06:31 06:31 WBC 11.1 H RBC 3.74 L Hgb 11.1 L Hct 33.4 L MCV 89.2 MCH 29.7 MCHC 33.3 RDW 15.7 Plt Count 235 MPV 9.5 Neut % (Auto) 78.2 Lymph % (Auto) 15.7 [place] % (Auto) 5.5 Eos % (Auto) 0.5 Baso % (Auto) 0.2 Neut # (Auto) 8.7 H Lymph # (Auto) 1.7 [place] # (Auto) 0.6 Eos # (Auto) 0.1 Baso # (Auto) 0.0 ESR Sodium 134 L Potassium 4.7 Chloride 98 Carbon Dioxide 26 Anion Gap 14.7 BUN 37 H D Creatinine 1.30 H Estimated Creat Clear 84 Estimated GFR 43 L Est GFR ( Amer) 52 L Glucose 323 H POC Glucose Calcium 8.3 L Total Bilirubin 0.2 AST 50 H D ALT 19 D Alkaline Phosphatase 154 H C-Reactive Protein 24.0 H D Total Protein 6.7 Albumin 3.3 L Globulin 3.4 H Albumin/Globulin Ratio 1.0 L Urine Color Urine Appearance Urine pH Ur Specific [place] Urine Protein Urine Glucose (UA) Urine Ketones Urine Blood Urine Nitrate Urine Bilirubin Urine Urobilinogen Ur Leukocyte Esterase Urine RBC Urine WBC Ur Squamous Epith Cells Triple Phos Crystals Urine Bacteria 01/07/20 01/07/20 01/06/20 06:31 05:27 20:16 WBC RBC Hgb Hct MCV MCH MCHC RDW Plt Count MPV Neut % (Auto) Lymph % (Auto) [place] % (Auto) Eos % (Auto) Baso % (Auto) Neut # (Auto) Lymph # (Auto) [place] # (Auto) Eos # (Auto) Baso # (Auto) ESR 84 H Sodium Potassium Chloride Carbon Dioxide Anion Gap BUN Creatinine Estimated Creat Clear Estimated GFR Est GFR (A
--- NOTE | 2020-01-07 10:26 | PC.NURSE ---
attempted to print discharge paperwork. Meds have not been reconciled and I'm unable to print packet. Called Dr. Bee's office (Trish) and updated her. Informed her that I'm in no hurry, as PT has not seen pt today. Just wanted to update Dr. Bee on med reconciliation.
--- NOTE | 2020-01-07 10:31 | PC.NURSE ---
received call from Agustin in Dr. Bee's office. She has reconciled meds.
--- NOTE | 2020-01-07 11:03 | P.CONPHA_ITS ---
[facility] VTE Monitoring - Patient Demographics Admission date: 01/06/20 Report Date: 01/07/20 Time: 11:03 Allergies/Adverse Reactions: Patient Allergies ranitidine [RANITIDINE] Allergy (Severe, Verified 01/06/20 07:45) Anaphylaxis adhesive tape [ADHESIVE TAPE] Allergy (Intermediate, Verified 01/06/20 07:45) I-RASH bupropion [BUPROPION] Allergy (Intermediate, Verified 01/06/20 07:45) I-HIVES butorphanol [BUTORPHANOL] Allergy (Intermediate, Verified 01/06/20 07:45) I-HIVES calcium [From DHEA] Allergy (Intermediate, Verified 01/06/20 07:45) I-HIVES calcium carbonate [From DHEA] Allergy (Intermediate, Verified 01/06/20 07:45) I-HIVES codeine [CODEINE] Allergy (Intermediate, Verified 01/06/20 07:45) I-HIVES hydromorphone [HYDROMORPHONE] Allergy (Intermediate, Verified 01/06/20 07:45) I-HIVES prasterone (DHEA) [From DHEA] Allergy (Intermediate, Verified 01/06/20 07:45) I-HIVES sumatriptan [From IMITREX] Allergy (Intermediate, Verified 01/06/20 07:45) I-HIVES hydrocodone [HYDROCODONE] Allergy (Unknown, Verified 01/06/20 07:45) I-ITCHING morphine [MORPHINE] Allergy (Unknown, Verified 01/06/20 07:45) HEADACHE oxycodone [From Percocet] Allergy (Verified 01/06/20 07:45) Hives prochlorperazine [From Compazine] Allergy (Verified 01/06/20 07:45) rizatriptan [From Maxalt] Allergy (Verified 01/06/20 07:45) Penicillins Adverse Reaction (Verified 01/06/20 07:45) upset stomach Height: 1.65 m Weight: 106.736 kg Patient Problems: Current Active Problems GERD (gastroesophageal reflux disease) (Chronic) Asthma (Chronic) Coronary artery disease (Chronic) Migraine (Chronic) MRSA (methicillin resistant staph aureus) culture positive (Acute) Retained orthopedic hardware (Acute) S/P ankle arthrodesis (Acute) - VTE Risk Labs: VTE Related Lab Results Hgb 11.1 g/dL (12.2-16.2) L 01/07/20 06:31 Hct 33.4 % (37.0-47.0) L 01/07/20 06:31 Plt Count 235 K/mm3 (142-424) 01/07/20 06:31 BUN 37 mg/dl (7-17) H D 01/07/20 06:31 Creatinine 1.30 mg/dl (0.52-1.04) H 01/07/20 06:31 Estimated Creat Clear 84 mL/min (50-200) 01/07/20 06:31 VTE Score: 8 VTE Risk Level: Moderate Risk - Prophylaxis VTE Prophylaxis Ordered?: Yes Types of VTE Prophylaxis: IPCS Thigh High, Pharmacological Pharmacologic Type: Enoxaparin
[2020-01-07 11:04] VITALS: BP 141/76; PULSE 83; RESP 20; TEMP 36.8; O2SAT 98
[2020-01-07 11:36] LABS: POC Glucose,Bedside 283 (70-110)
--- NOTE | 2020-01-07 11:39 | HMH.PTEV ---
Physical Therapy Evaluation Rehab PT IP Evaluation Start: 01/06/20 14:37 Freq: ONCE Status: Active Protocol: Document 01/07/20 11:35 PWCHARIS (Rec: 01/07/20 11:38 PWCHARIS [id number]) Subjective/History History History This is the initial IP PT evaluation for Ewa Guallpa. Pt is a 54 y/o female admitted to [facility] s/p L foot Charcot reconstruction. Pt had surgical fixation and reconstruction yesterday w/ external fixator placement. Subjective Subjective Pt reports her foot and toes are still numb from nerve block Rehab PT IP Eval Objective Appearance Patient Behavior Appropriate,Cooperative Patient Orientation Person,Place,Time Difficulty following instructions none Speech Pattern Clear,Appropriate Ambulation Patient Able to Ambulate Yes Ambulation Observation IP General Gait Pattern Observation Decrease Weight Bear (L) Ambulation Distance (feet) 10 Ambulation Assistive Device Rolling Walker Ambulation Ability Supervision/Stand by Balance Ability to Arise Able, uses arms to help Sitting Balance Steady, safe Standing Balance Unsteady Dynamic Sitting Balance Ability Good Transfers Bed Transfer Ability Independent,Supervision/Stand by Chair Transfer Ability Independent,Supervision/Stand by Sit to Stand Bed Transfer Ability Supervision/Stand by Sit to Stand Chair Transfer Ability Supervision/Stand by Rehab PT IP prob,goals,plan Problems Date of Evaluation: 01/07/20 PT IP Problems Transfers,Gait,Balance,Self care,Safety Rehab Potential Rehab Potential Good Equipment Needs Assistive Devices Rolling / Wheeled Walker Plan PT Intervention Plan Transfers,Gait,Therapeutic Exercise PT Plan Frequency BID Duration LOS Discharge Plan PT Discharge Plan Pt to tn home w/ HHPT and Nsg for dressing change G -code Required No Eval Complexity Eval Charge Codes 54095 - Low Complexity PHYSICIAN CERTIFICATION: I certify the specified therapy services for Ewa Guallpa are required, authorized, and reviewed every 30 days.
--- NOTE | 2020-01-07 14:01 | HMH.PHAINT ---
DISCHARGE COUNSELING-DISCUSSED WITH PATIENT DISCHARGE MEDICATIONS. PATIENT HAD LEVAQUIN ORDERED ON 12/24/19 FOR 5 DAYS. THIS WAS TAKEN OFF THE DISCHARGE SHEET. MD ORDERED KETORLAC AND PATIENT HAS BEEN TAKING IBUPROFEN. DISCUSSED THIS WITH PATIENT TO NOT TAKE TOGETHER.
== END 2020-01-07 14:26 | disposition home or self-care (01) ==
LOC: 2ND 14:42
PROVIDERS: Admitting Provider Podiatrist; PCP Pediatrics; Visit Provider Podiatrist
PROC: (CPT 28725; principal; 2020-01-06 09:15)
DX: M96.0 Pseudarthrosis after fusion or arthrodesis (principal); E11.610 Type 2 diabetes mellitus with diabetic neuropathic arthropathy; Z79.4 Long term (current) use of insulin; Z97.8 Presence of other specified devices; E78.5 Hyperlipidemia, unspecified; I10 Essential (primary) hypertension; I25.10 Atherosclerotic heart disease of native coronary artery without angina pectoris; Z79.890 Hormone replacement therapy; Z88.8 Allergy status to other drugs, medicaments and biological substances
CPT/HCPCS: 28725; 20693; C5275; 36415; 73600; 73610; 73650; 76000; 80053; 81001; 82565; 82962; 85025; 85651; 86140; 87086; 87088; 87186; 96374; 97161; C1713; C1734; C1762; C1776; G0378; J3370; Q4211

== ENCOUNTER → 2020-01-18 09:39 | Outpatient (CLI) | payer BC, SELFPAY ==
--- NOTE | 2020-01-18 09:43 | XR_ITS ---
PROCEDURE: XR FOOT WT BEARING RT 3V CLINICAL INDICATION: pain Medial foot pain COMPARISON: CR XR FOOT WT BEARING LT 3V from 04/23/2019 CR XR FOOT WT BEARING LT 3V from 10/07/2019 CR XR FOOT WT BEARING RT 3V from 10/07/2019 CR XR FOOT LT MIN 3V from 12/16/2019 FINDINGS: No fracture or dislocation. No lytic or blastic change. There is normal mineralization. The joint spaces are well-preserved. No significant degenerative/arthritic changes. No erosive changes evident. Other findings:None. IMPRESSION: No acute findings. Dictated by: Kofi Suarez MD 01/18/2020 17:37 Kofi Suarez MD in [place] 01/18/2020 17:37
== END ==
PROVIDERS: PCP Pediatrics; Visit Provider Podiatrist
DX: M79.671 Pain in right foot (principal)
CPT/HCPCS: 73630

== ENCOUNTER → 2020-01-28 17:48 | Outpatient (CLI) | payer BC, SELFPAY | PROVIDERS: Visit Provider Podiatrist | DX: Z98.890 Other specified postprocedural states (principal); M79.671 Pain in right foot | CPT/HCPCS: 87070; 87077; 87186; 87205 ==

== ENCOUNTER → 2020-02-04 10:28 | Outpatient (CLI) | payer BC, SELFPAY ==
--- NOTE | 2020-02-04 10:32 | XR_ITS ---
PROCEDURE: XR ANKLE WT BEARING LT MIN 3V CLINICAL INDICATION: post-op Follow-up ORIF COMPARISON: CR XR ANKLE WT BEARING LT MIN 3V from 10/07/2019 CR XR FOOT WT BEARING RT 3V from 10/07/2019 CR XR FOOT WT BEARING LT 3V from 10/07/2019 CR XR FOOT LT MIN 3V from 12/16/2019 CR XR ANKLE LT MIN 3V from 12/16/2019 CR XR ANKLE LT 2V from 01/06/2020 CR XR ANKLE LT MIN 3V from 01/06/2020 CR XR FOOT WT BEARING RT 3V from 01/18/2020 FINDINGS: Status post ankle and midfoot fusion. No change in the bony hardware as previously described. External fixator remains in place. Charcot joint noted in the midfoot. No change in the long screws in the 1st and 4th metatarsals. IMPRESSION: Postsurgical changes with good alignment in overall no significant change. Dictated by: Kofi Suarez MD 02/04/2020 13:04 Kofi Suarez MD in [place] 02/04/2020 13:05
== END ==
PROVIDERS: PCP Pediatrics; Visit Provider Podiatrist
DX: Z98.890 Other specified postprocedural states (principal); M25.571 Pain in right ankle and joints of right foot
CPT/HCPCS: 73610; 73630

== ENCOUNTER → 2020-02-08 10:39 | Outpatient (CLI) | payer BC, SELFPAY ==
[2020-02-08 12:17] LABS: Alanine Aminotransferase 10 U/L (12-78); Albumin Level 3.2 g/dl (3.5-5.0); Alkaline Phosphatase 120 U/L (38-126); Anion Gap 10.5 mEq/L (5-15); Aspartate Amino Transferase 23 U/L (14-36); Bilirubin,Total 0.2 mg/dl (0.2-1.3); Blood Urea Nitrogen 23 mg/dl (7-17); Calcium 8.5 mg/dl (8.4-10.2); Carbon Dioxide 25 mmol/L (22.0-30.0); Chloride 107 mmol/L (98-107); Estimated Glomerular Filt Rate 47 ml/min (>60); GFR (African American) 57 ML/MIN (>60); Globulin 3.2 g/dL (1.3-3.2); Glucose 93 mg/dl (74-100); Potassium 4.5 mmoL/L (3.5-5.1); Sodium 138 mmol/L (136-145); Total Protein,Serum 6.4 g/dl (6.3-8.2)
[2020-02-08 12:22] LABS: C-Reactive Protein 8.9 mg/L (0-4)
[2020-02-08 13:24] LABS: Erythrocyte Sedimentation Rate 82 mm/hr (0-30)
[2020-02-08 13:28] LABS: Basophils % 0.5 % (0.1-2.0); Eosinophils # 0.4 K/mm3 (0.0-0.4); Eosinophils % 5.2 % (0.1-12.0); Hematocrit 33.8 % (37.0-47.0); Hemoglobin 10.5 g/dL (12.2-16.2); Lymphocytes # 3.3 K/mm3 (0.7-4.5); Lymphocytes % 44.2 % (10-50); Mean Corpuscular HGB Conc 31.2 g/dL (31.8-35.4); Mean Corpuscular Hemoglobin 27.8 pg (27.0-31.2); Mean Corpuscular Volume 89.2 fl (81-99); Mean Platelet Volume 9.2 fl (7.4-10.4); Monocytes # 0.5 K/mm3 (0.1-1.0); Monocytes % 6.3 % (1.7-9.3); Neutrophils # 3.2 K/mm3 (1.8-7.8); Neutrophils % 43.8 % (37.0-80.0); Platelet Count 322 K/mm3 (142-424); Red Blood Count 3.79 M/mm3 (4.20-5.40); Red Cell Distribution Width 15.7 % (11.5-17.5); White Blood Count 7.4 K/mm3 (4.8-10.8)
[2020-02-08 14:41] LABS: Coronavirus 19 IgG Antibody Negative (Negative); Coronavirus 19 IgM Antibody Negative (Negative)
== END ==
PROVIDERS: Visit Provider Podiatrist
DX: Z01.818 Encounter for other preprocedural examination (principal); M14.672 Charcot's joint, left ankle and foot; E11.610 Type 2 diabetes mellitus with diabetic neuropathic arthropathy
CPT/HCPCS: 36415; 80053; 85025; 85651; 86140; 86328

== ENCOUNTER 2020-02-09 06:08 | Day surgery (SDC) | payer BC, SELFPAY ==
[2020-02-05 14:00] VITALS: BMI 36.6
[2020-02-09] VITALS (10 sets, daily range): BP systolic 120–164; BP diastolic 45–93; PULSE 72–81; RESP 14–18; TEMP 36.2–36.6; O2SAT 94–99
[2020-02-09 07:10] LABS: POC Glucose,Bedside 77 (70-110)
--- NOTE | 2020-02-09 07:17 | HMH.OPNOTE ---
Date of procedure: 02/09/20 Pre-op Diagnosis:: 1. Left Charcot reconstruction on 01/06/20 2. Left DM foot ulcer 3. Left retained orthopedic hardware 4. Left external fixation device (Delta frame) 5. Left foot cellulitis Post-op Diagnosis:: Same Procedure performed:: 1. Left application of new multi planar external fixation device (Salvation Ilizarov frame) 2. Left external fixation device (Delta frame) removal 3. Left skin suture/staple removal 4. Left calcaneus bone biospy x2, proximal tibia bone biospy (application of bone graft, antibiotic powder) 5. Left foot wound debridement with delayed primary closure 6. Left application of wound graft (Bioskin) Surgeon:: Aure Bee DPM Pipe Finisher(s):: Rosalia Espinal CLINICAL DOCUMENTATION MANAGER:: Poncho Sorenson Anesthesia: GETA, regional (Left popliteal nerve block) Estimated blood loss (mL): 20 Clinical Note:: Ms. Guallpa is a 54-year-old diabetic female who had surgery on 01/06/20: Left ext fix device removal, suture removal, revision of Charcot reconstruction, revision of non-union, alejandrina of new multiplanar ex fix ankle arthrodesis, subtalar joint arthrodesis, ankle synovectomy, alejandrina of bone graft, alejandrina of amniotic tissue graft, alejandrina of Prevena incisional wound VAC. She hit the lateral ankle and the delta frame shifted. In office last week there was a starting lateral wound and pin tract infection. We discussed conservative versus surgical treatment options. Patient has been on antibiotics and last cultures growing Enterobacter cloaca K. We discussed concern of calcaneal pins sliding and shifting causing skin irritation and infection. We also discussed pin site her portal for infection to the level of the bone. We discussed in detail risks of osteomyelitis which could lead to loss of limb. Conservative treatment options include local wound care, oral and IV antibiotics, change in shoe wear, taping/padding, and off-loading. We discussed surgery for exfix removal, wound debridement with delayed primary closure and bone biopsies to check for underlying osteomyelitis. Patient also understands that they could have wound healing complications including delayed healing and infection. We discussed that if the wound does not heal, it is possible that they may need a more proximal amputation and could result in loss of digits, loss of partial foot or loss of leg. We discussed the risks and benefits in great detail. Other surgical risks include: prolonged pain and swelling, further infection requiring oral or IV antibiotics, delay in healing of soft tissue or bone, nerve or blood vessel damage, CRPS/RSD, DVT, anesthesia complications, and even . All questions answered. Patient verbalized understanding. Consent obtained. Cardiac clearance and new labs obtained. Operative findings:: Sutures retained to the left anterior ankle and foot. Sutures were removed. The left lateral foot surgical incision had wound dehiscence noted. Predebridement wound 100% fibrotic and measured approximately 3.5 x 1.5 x 0.3 cm. No dominick purulence, drainage or malodor noted. Localized edema and erythema consistent with cellulitis. Post debridement sharply excisionally full-thickness with a 15 blade and forceps, periwound fibrotic slough sharply excisionally debrided. Wound post debridement was 100% granular and measured 1.6 x 2.4 x 0.1cm. No purulent discharge or signs of infection. Proximal tibia pin sites had no erythema and edema. Lateral calcaneus pin site had edema, erythema but no drainage noted. Bone was soft and yellowish-white in color. Proximal tibia biopsy taken: Bone hard texture and color within normal limits. Operative note:: On this date and time patient was deemed an appropriate surgical candidate. With informed consent signed, the patient was taken to the operating theater after regional nerve block. The patient was positioned supine. General anesthesia was induced. No tourniquet used. Left removal of external fixation device (delta frame): Localized
--- NOTE | 2020-02-09 09:56 | XR_ITS ---
PROCEDURE: XR ANKLE LT 2V CLINICAL INDICATION: EX FIT REMOVAL AND REAPPLY COMPARISON: CR XR ANKLE LT MIN 3V from 12/16/2019 CR XR ANKLE LT 2V from 01/06/2020 CR XR ANKLE LT MIN 3V from 01/06/2020 FINDINGS: Fluoroscopy time 1 minutes and 11 seconds. External fixator was placed during fluoro. Please correlate with fluoroscopic images. A single view is submitted showing external fixator in place. IMPRESSION: Status post placement of external fixator with fluoro guidance Dictated by: Kofi Suarez MD 02/09/2020 15:11 Kofi Suarez MD in [place] 02/09/2020 15:11
--- NOTE | 2020-02-09 10:00 | XR_ITS ---
PROCEDURE: XR FOOT LT MIN 3V CLINICAL INDICATION: post op ex fix Follow-up surgery COMPARISON: CR XR FOOT WT BEARING LT 3V from 10/07/2019 CR XR FOOT LT MIN 3V from 12/16/2019 CR XR FOOT WT BEARING RT 3V from 01/18/2020 CR XR FOOT WT BEARING LT 3V from 02/04/2020 CR XR ANKLE LT 2V from 02/09/2020 CR XR ANKLE LT MIN 3V from 02/09/2020 FINDINGS: There is an external fixator in place. Prior ankle and foot fusion. Anterior bone plate is present at the tibial talar region as before. There is a calcaneal talar screw present and a screw extending from the 1st metatarsal into the medial cuneiform navicular and into the distal aspect of the talus with a prominent space at the talonavicular joint. Screws present through the 2nd metatarsal extending into the cuboid region. There is extensive artifact obscuring bony outline from the overlying external fixator. IMPRESSION: Status post ankle and foot fusion as described above. There does appear to be good alignment. There is a prominent space between the distal talus and the navicular. There does appear to be good alignment. Dictated by: Kofi Suarez MD 02/09/2020 15:09 Kofi Suarez MD in [place] 02/09/2020 15:09
--- NOTE | 2020-02-09 10:12 | P.PN_ITS ---
[facility] Anesthesia Checklist - Patient Identification Patient Identification: Arm Band, Verbal (Name & ) - Structural Data Admitted From: Home Planned Operative Procedure/s: Left external fixation removal, wound debridement, graft, bone bx, alejandrina ex f Consent for Planned Operative Procedure(s) Verified: Yes Verified Documents: Surgical Consent, History and Physical, Cardiac Clearance - NPO Status Verified Time NPO: 21:00 - Chart Verification Results Verified: CBC, BMP - Additional verifications Anesthesia Reactions: No Hx Blood Transfusions: No Blood Transfusion Reaction: No - Airway Assessment C-Spine Mobility Assessed: Yes TMJ Mobility Assessed: Yes Dentition: Good Dentition - Neurological Assessment Level of Consciousness: Awake, Alert, Appropriate, Follows Commands Hx Seizures: No Numbness or tingling in extremities: Yes - Anesthesia Plan Anesthesia Risk discussed: Yes Anesthesia Plan: Verified ASA Class: III Anesthesia Type: General w/block (Left popliteal nerve block) [facility] History I have reviewed the patient's past medical history: Yes Medical History: Reports:: Asthma, Coronary Artery Disease, Diabetes Mellitus Type 2, Gastroesophageal Reflux Disease(GERD), Hyperlipidemia, Hypertension, Lung Disease, Migraine, MRSA Denies:: Atrial Fibrillation, Cancer, Chronic Obstructive Pulmonary Disease (COPD), Cerebrovascular Accident, Diabetes Mellitus Type 1, Internal Pacemaker, Myocardial Infarction, Seizures *Have you ever received a pneumonia vaccine?: No *Have you received a flu vaccine this season?: No Other Medical History: Denies: Blood Transfusion Reaction Comment:: obesity Anesthesia experience/problems:: No prior complications Laterality Cases: Right: Breast Biopsy, Bilateral: Carpal Tunnel Release, Other Other Surgeries: Yes: Appendectomy, Cardiac Catheterization, Cholecystectomy, Colonoscopy, , Hysterectomy-Total, Tubal Ligation, Other. No: Pacemaker Amputation: No Fractures: Yes - *Social History Last grade of school completed: Advanced degree Smoking Status: Former smoker Tobacco Type: cigarettes #Yrs smoked (if former smoker): 15 Alcohol Intake: never Alcohol Intake Frequency:: holidays/special occasions only Substance Use Type: denies use *Occupational Status:: employed Housing: house Household Members: spouse *Travel in the last 8 weeks: None Family Hx:: Cancer, Diabetes, Heart Attack
--- NOTE | 2020-02-09 10:14 | HMH.ANESI ---
[facility] Anesthesia Record Part I Intake, IV Amount: 700 Estimated blood loss (mL): 5 Urine output (mL): 0 Blood Products used (#): none Blood Pressure: 156/86 SaO2: 94 Pulse Rate: 80 Respiratory Rate: 14 Temperature: 97.5 F Patient is:: Awake, Stable Stable to PACU at:: 10:10
--- NOTE | 2020-02-10 07:39 | HMH.ANESII ---
[facility] Anesthesia Record Part II Discharge Time: 10:40 Destination: Surgical Day Care (OP Surgery) PACU nurse assessment reviewed?: Yes Patient Condition:: Good Anesthesia Complications:: None Swallowing reflex intact?: Yes Cyanosis?: No Blood Pressure: 164/80 Pulse Rate: 79 Temperature: 97.8 F Mental Status: Alert & Oriented Pain level:: 0 Nausea and/or vomitting:: None Intake, IV Amount: 0
[2020-02-10 07:41] VITALS: BP 164/80; PULSE 79; TEMP 36.6
== END 2020-02-09 11:25 | disposition home or self-care (01) ==
PROVIDERS: PCP Pediatrics; Visit Provider Podiatrist
PROC: (CPT 11042; principal; 2020-02-09 07:30)
DX: T81.32XA Disruption of internal operation (surgical) wound, not elsewhere classified, initial encounter (principal); M96.0 Pseudarthrosis after fusion or arthrodesis; E11.610 Type 2 diabetes mellitus with diabetic neuropathic arthropathy; Z79.4 Long term (current) use of insulin; Z97.8 Presence of other specified devices; E78.5 Hyperlipidemia, unspecified; I10 Essential (primary) hypertension; I25.10 Atherosclerotic heart disease of native coronary artery without angina pectoris; Z79.890 Hormone replacement therapy; Z88.8 Allergy status to other drugs, medicaments and biological substances; Z79.899 Other long term (current) drug therapy; Z87.891 Personal history of nicotine dependence; E11.621 Type 2 diabetes mellitus with foot ulcer; L97.528 Non-pressure chronic ulcer of other part of left foot with other specified severity; E11.65 Type 2 diabetes mellitus with hyperglycemia; L03.116 Cellulitis of left lower limb
CPT/HCPCS: 11042; 20693; 20240; 20245; C5275; 73600; 73610; 73630; 82962; 87070; 87205; 96374; C1713; J2405; J3370; Q4100

== ENCOUNTER → 2020-02-23 12:20 | Outpatient (CLI) | payer BC, SELFPAY ==
--- NOTE | 2020-02-23 12:25 | XR_ITS ---
PROCEDURE: XR ANKLE WT BEARING LT MIN 3V CLINICAL INDICATION: PAIN Follow-up surgery with re-injury COMPARISON: CR XR ANKLE LT MIN 3V from 01/06/2020 CR XR ANKLE WT BEARING LT MIN 3V from 02/04/2020 CR XR ANKLE LT 2V from 02/09/2020 CR XR ANKLE LT MIN 3V from 02/09/2020 CR XR FOOT LT MIN 3V from 02/09/2020 CR XR FOOT WT BEARING LT 3V from 02/23/2020 FINDINGS: There is an external fixator in place at the tibia ankle and foot. The proximal wires of the external fixator are bent compared to the previous study. The anterior tibial talar bone plate is in place as before. Calcaneal, 4th metatarsal cuboid, and 1st metatarsal, cuneiform navicular and talus screw is present as before. There is prominence of the talonavicular joint. Overall no change in alignment. IMPRESSION: The transverse stabilizing wires at the proximal external fixator have a convoluted/bent contour compared to the previous exam. No other changes are evident. Dictated by: Kofi Suarez MD 02/24/2020 06:55 Kofi Suarez MD in [place] 02/24/2020 06:55
== END ==
PROVIDERS: PCP Pediatrics; Visit Provider Podiatrist
DX: Z98.890 Other specified postprocedural states (principal); M14.672 Charcot's joint, left ankle and foot; T81.49XA Infection following a procedure, other surgical site, initial encounter
CPT/HCPCS: 73610; 73630

== ENCOUNTER → 2020-02-25 18:18 | Outpatient (CLI) | payer BC, SELFPAY | PROVIDERS: Visit Provider Podiatrist | DX: M14.672 Charcot's joint, left ankle and foot (principal); Z98.890 Other specified postprocedural states | CPT/HCPCS: 87070; 87077; 87205 ==

== ENCOUNTER → 2020-02-29 16:46 | Outpatient (CLI) | payer BC, SELFPAY ==
[2020-02-29 17:28] LABS: Basophils % 0.4 % (0.1-2.0); Eosinophils # 0.3 K/mm3 (0.0-0.4); Eosinophils % 3.7 % (0.1-12.0); Hematocrit 34.4 % (37.0-47.0); Hemoglobin 11.2 g/dL (12.2-16.2); Lymphocytes # 3.2 K/mm3 (0.7-4.5); Mean Corpuscular HGB Conc 32.6 g/dL (31.8-35.4); Mean Corpuscular Hemoglobin 28.3 pg (27.0-31.2); Mean Corpuscular Volume 86.9 fl (81-99); Monocytes # 0.6 K/mm3 (0.1-1.0); Neutrophils # 4.1 K/mm3 (1.8-7.8); Neutrophils % 49.9 % (37.0-80.0); Platelet Count 297 K/mm3 (142-424); Red Blood Count 3.96 M/mm3 (4.20-5.40); Red Cell Distribution Width 15.7 % (11.5-17.5); White Blood Count 8.2 K/mm3 (4.8-10.8)
[2020-02-29 19:38] LABS: Erythrocyte Sedimentation Rate 102 mm/hr (0-30)
[2020-02-29 20:32] LABS: Chloride 100 mmol/L (98-107); Potassium 5.1 mmoL/L (3.5-5.1); Sodium 134 mmol/L (136-145)
[2020-02-29 20:34] LABS: Alanine Aminotransferase 14 U/L (12-78); Aspartate Amino Transferase 24 U/L (14-36); Blood Urea Nitrogen 19 mg/dl (7-17); Estimated Glomerular Filt Rate 47 ml/min (>60); GFR (African American) 57 ML/MIN (>60)
[2020-02-29 20:35] LABS: Albumin Level 3.3 g/dl (3.5-5.0); Alkaline Phosphatase 143 U/L (38-126); Anion Gap 16.1 mEq/L (5-15); Bilirubin,Total 0.3 mg/dl (0.2-1.3); Calcium 8.7 mg/dl (8.4-10.2); Carbon Dioxide 23 mmol/L (22.0-30.0); Globulin 3.2 g/dL (1.3-3.2); Glucose 362 mg/dl (74-100); Total Protein,Serum 6.5 g/dl (6.3-8.2)
[2020-02-29 20:42] LABS: C-Reactive Protein 23.1 mg/L (0-4)
[2020-02-29 20:53] LABS: Coronavirus 19 IgG Antibody Negative (Negative); Coronavirus 19 IgM Antibody Negative (Negative)
== END ==
PROVIDERS: Visit Provider Podiatrist
DX: Z01.818 Encounter for other preprocedural examination (principal); M14.672 Charcot's joint, left ankle and foot
CPT/HCPCS: 36415; 80053; 85025; 85651; 86140; 86328

== ENCOUNTER 2020-03-02 06:08 | Day surgery (SDC) | payer BC, SELFPAY ==
[2020-02-29 10:23] VITALS: BMI 37.1
[2020-03-02] VITALS (8 sets, daily range): BP systolic 125–156; BP diastolic 57–82; PULSE 78–87; RESP 18; TEMP 36.4–36.7; O2SAT 85–97
[2020-03-02 08:51] LABS: POC Glucose,Bedside 163 (70-110)
--- NOTE | 2020-03-02 08:56 | HMH.OPNOTE ---
Date of procedure: 03/02/20 Pre-op Diagnosis:: 1. Left Charcot reconstruction on 01/06/20 2. Left DM foot ulcer 3. Left retained orthopedic hardware 4. Left external fixation device (Salvation Ilizarov frame) 5. Left foot pin tract cellulitis Post-op Diagnosis:: Same Procedure performed:: 1. Left external fixation device (Salvation Ilizarov frame) removal 2. Left skin suture/staple removal 3. Left calcaneus bone biospy, proximal tibia bone biospy 4. Left application of bone graft, antibiotic powder 5. Left foot wound debridement with delayed primary closure 6. Left application of wound graft (Bioskin) Surgeon:: Aure Bee DPM Anesthesia: MAC, regional (Left popliteal gerry), local (30cc 0.5% marcaine plain) Estimated blood loss (mL): 15 Clinical Note:: PRE-OP LLE: We discussed conservative versus surgical treatment options. Patient has been on antibiotics and last cultures growing Enterobacter cloaca. We discussed concern of new bent wires sliding and shifting causing skin irritation and infection. We also discussed pin site her portal for infection to the level of the bone. We discussed in detail risks of osteomyelitis which could lead to loss of limb. Conservative treatment options include local wound care, oral and IV antibiotics, change in shoe wear, taping/padding, and off-loading. We discussed surgery for exfix removal, wound debridement with delayed primary closure and bone biopsies to check for underlying osteomyelitis. Patient also understands that they could have wound healing complications including delayed healing and infection. We discussed that if the wound does not heal, it is possible that they may need a more proximal amputation and could result in loss of digits, loss of partial foot or loss of leg. We discussed the risks and benefits in great detail. Other surgical risks include: prolonged pain and swelling, further infection requiring oral or IV antibiotics, delay in healing of soft tissue or bone, nerve or blood vessel damage, CRPS/RSD, DVT, anesthesia complications, and even . All questions answered. Patient verbalized understanding. Consent obtained. Discussed plan of care PCP-Dr. Juan Tabares. She is to follow up with him again 1 week after surgery. She saw cardiology, Dr. PUENTE on 02/25/20. Pre-op labs: ESR, CRP, CBC, CMP, covid planned for Saturday02/29/20. Operative findings:: Left leg has proximal exfix pin sites bent. There is localized edema and erythema around the proximal pin sites. Serous drainage noted from the proximal anterior medial pin site. No deep purulence noted. Skin incision to the anterior ankle healed after suture removal. The left lateral foot had a small linear wound 1.1 x 0.3 x 0.1cm, no signs of infection. It was closed with sutures. Left lateral wound ulcer 100% granular, no purulence, malodor or drainage noted. Post debridement sharply excisionally with 15 blade, curette and forceps the wound was 100% granular and measured 1.8 x 2.6 x 0.4 cm. Operative note:: On this date and time patient was deemed an appropriate surgical candidate. With informed consent signed, the patient was taken to the operating theater after regional nerve block. The patient was positioned supine. General anesthesia was induced. No tourniquet used. Left removal of external fixation device (Salvation Ilizarov frame): Localized edema and erythema noted to the proximal medial, anteral and lateral pin sites. The proximal pins were bent. No serous drainage or SOI noted from calcaneal lateral or medial pin sites. No dominick purulence, no malodor noted to any pin sites. The left lower extremity was prepped with betadine. A wrench was used to unscrew the frame. The frame was removed in total. All of the pins were removed without complication. Next a curette was used to curette and debride the pin sites. Fibrotic tissue and biofilm was removed. Pin site wounds were granular. All pin sites were cleansed with Betadine. Left skin staple/suture rem
--- NOTE | 2020-03-02 09:00 | XR_ITS ---
PROCEDURE: XR ANKLE LT MIN 3V CLINICAL INDICATION: Post op ex fix removal Follow-up hardware removal COMPARISON: CR XR ANKLE WT BEARING LT MIN 3V from 02/04/2020 CR XR ANKLE LT 2V from 02/09/2020 CR XR ANKLE LT MIN 3V from 02/09/2020 CR XR ANKLE WT BEARING LT MIN 3V from 02/23/2020 CR XR FOOT LT MIN 3V from 03/02/2020 FINDINGS: External fixator has been removed. Extensive postsurgical changes of the foot and ankle once again noted with a bone plate along the anterior distal tibia and talus, lag screw extending from the calcaneus into the talus, screws from the talus into the distal aspect of the calcaneus. There are is a lucency around the calcaneal portion of this screw. Long lag screws are present at the 1st metatarsal into the medial cuneiform navicular and distal talus and an additional lag screw into the 4th metatarsal into the cuboid. There is a cast present which obscures fine detail. Bony sclerosis noted with developing fusion at the tibial talar region. There is persistent lucency at the talocalcaneal region and knee talonavicular area indicating non bony fusion. The lucency around the tip of the screw from the talus into the calcaneus shows a prominent zone of lucency and may represent loosening or infection. IMPRESSION: Status post ankle and midfoot fusion as described above. The external fixators have been removed. There is developing fusion at the tibial talar joint but persistent lucency at the talocalcaneal and talonavicular region with suspected loosening of the screw into the distal aspect of the calcaneus from the talar bone plate. It is un snow whether this is both screws or the right or left screw. Dictated by: Kofi Suarez MD 03/02/2020 15:57 Kofi Suarez MD in [place] 03/02/2020 15:57
--- NOTE | 2020-03-02 09:25 | SUR.PHASEII ---
Radiology at bedside- portable xrays done of lower left leg per order.
--- NOTE | 2020-03-02 11:14 | HMH.ANESCL ---
[facility] Anesthesia Checklist - Patient Identification Patient Identification: Arm Band, Verbal (Name & ) - Structural Data Admitted From: Home Planned Operative Procedure/s: ex fix remove Consent for Planned Operative Procedure(s) Verified: Yes Verified Documents: History and Physical - NPO Status Verified Time NPO: 00:00 - Additional verifications Patient : No Anesthesia Reactions: No Hx Blood Transfusions: No Blood Transfusion Reaction: No Cephalosporin Allergy: No Previous Colonoscopy: No - Cardiovascular Assessment Heart Sounds: S1 & S2 Pulse Strength: Baseline Pulse Rhythm: Regular Peripheral Edema: No - Airway Assessment C-Spine Mobility Assessed: Yes TMJ Mobility Assessed: Yes Dentition: Good Dentition - Neurological Assessment Level of Consciousness: Awake, Alert, Appropriate Hx Seizures: No Numbness or tingling in extremities: No - Anesthesia Plan Anesthesia Risk discussed: Yes Anesthesia Plan: Verified ASA Class: III Anesthesia Type: MAC [facility] History I have reviewed the patient's past medical history: Yes Medical History: Reports:: Asthma, Coronary Artery Disease, Diabetes Mellitus Type 2, Gastroesophageal Reflux Disease(GERD), Hyperlipidemia, Hypertension, Lung Disease, Migraine, MRSA Denies:: Atrial Fibrillation, Cancer, Chronic Obstructive Pulmonary Disease (COPD), Cerebrovascular Accident, Diabetes Mellitus Type 1, Internal Pacemaker, Myocardial Infarction, Seizures *Have you ever received a pneumonia vaccine?: No *Have you received a flu vaccine this season?: No Other Medical History: Denies: Blood Transfusion Reaction Anesthesia experience/problems:: none Laterality Cases: Right: Breast Biopsy, Bilateral: Carpal Tunnel Release, Other Other Surgeries: Yes: No Previous Surgery, Appendectomy, Cardiac Catheterization, Cholecystectomy, Colonoscopy, , Hysterectomy-Total, Tubal Ligation, Other. No: Pacemaker Amputation: No Fractures: Yes - *Social History Last grade of school completed: Some college Smoking Status: Former smoker Tobacco Type: cigarettes #Yrs smoked (if former smoker): 15 Alcohol Intake: never Alcohol Intake Frequency:: holidays/special occasions only Substance Use Type: denies use *Occupational Status:: employed Housing: house Household Members: spouse *Travel in the last 8 weeks: None Family Hx:: Cancer, Diabetes, Heart Attack
== END 2020-03-02 10:12 | disposition home or self-care (01) ==
LOC: OR 06:10
PROVIDERS: PCP Pediatrics; Visit Provider Podiatrist
PROC: (CPT 20694; principal; 2020-03-02 07:30)
DX: T81.31XA Disruption of external operation (surgical) wound, not elsewhere classified, initial encounter (principal); T84.69XA Infection and inflammatory reaction due to internal fixation device of other site, initial encounter; L03.116 Cellulitis of left lower limb; J45.909 Unspecified asthma, uncomplicated; I25.10 Atherosclerotic heart disease of native coronary artery without angina pectoris; E78.5 Hyperlipidemia, unspecified; I10 Essential (primary) hypertension; E11.621 Type 2 diabetes mellitus with foot ulcer; K21.9 Gastro-esophageal reflux disease without esophagitis; J98.4 Other disorders of lung; Z83.3 Family history of diabetes mellitus; Z82.49 Family history of ischemic heart disease and other diseases of the circulatory system; Z88.5 Allergy status to narcotic agent; Z88.0 Allergy status to penicillin; Z88.8 Allergy status to other drugs, medicaments and biological substances; Z79.1 Long term (current) use of non-steroidal anti-inflammatories (NSAID); Z79.890 Hormone replacement therapy; Z79.4 Long term (current) use of insulin; Z79.891 Long term (current) use of opiate analgesic; Z79.899 Other long term (current) drug therapy; Z87.891 Personal history of nicotine dependence; Y79.8 Miscellaneous orthopedic devices associated with adverse incidents, not elsewhere classified
CPT/HCPCS: 20694; 20220; 73610; 73630; 82962; 87070; 87075; 87077; 87186; 87205; 96374; C1713; J1335; J3370; Q4100

== ENCOUNTER → 2020-03-24 14:01 | Outpatient (CLI) | payer BC, SELFPAY ==
--- NOTE | 2020-03-24 14:06 | XR_ITS ---
PROCEDURE: XR FOOT WT BEARING LT 3V CLINICAL INDICATION: post-op Follow-up surgery COMPARISON: CR XR FOOT WT BEARING LT 3V from 02/04/2020 CR XR FOOT LT MIN 3V from 02/09/2020 CR XR FOOT WT BEARING LT 3V from 02/23/2020 CR XR FOOT LT MIN 3V from 03/02/2020 CR XR ANKLE WT BEARING LT MIN 3V from 03/24/2020 FINDINGS: The cast has been removed. Status post ankle fusion with anterior bone plate at tibial talar region. Joint space is still visualized. Status post talocalcaneal fusion with joint space still visible. Long lag screw is present from the distal aspect of the 1st metatarsal into the medial cuneiform navicular and the distal aspect of the talus with a prominent zone of lucency at the talus region. Two screws are present at the distal aspect of the tibial bone plate into the talus and upper calcaneal region with prominent lucency it at that level. Long lag screw is present from the 4th metatarsal distally into the cuboid. There is good alignment. There is apparent fusion of the tarsal metatarsal junction of digits 1 2 and 3 and of the navicular cuneiform junction. IMPRESSION: Postsurgical changes as described above. Dictated by: Kofi Suarez MD 03/24/2020 16:20 Kofi Suarez MD in [place] 03/24/2020 16:20
== END ==
PROVIDERS: PCP Pediatrics; Visit Provider Podiatrist
DX: Z98.890 Other specified postprocedural states (principal)
CPT/HCPCS: 73610; 73630

== ENCOUNTER → 2020-04-04 16:46 | Outpatient (CLI) | payer BC, SELFPAY ==
--- NOTE | 2020-04-04 17:21 | ECG_ITS ---
APPROVED REPORT Exam: Resting ECG HR:82 bpm ECG Measurements Heart Rate 82 AXES IN 154 P 34 QRSd 84 QRS -8 QT 388 T 17 QTc 453 Conclusion Normal sinus rhythm Late r wave progression Abnormal ECG Electronically signed by : Miles Lemon, 04/04/2020 19:05:03
[2020-04-04 17:44] LABS: Basophils % 0.3 % (0.1-2.0); Eosinophils # 0.2 K/mm3 (0.0-0.4); Eosinophils % 2.5 % (0.1-12.0); Hematocrit 36.5 % (37.0-47.0); Hemoglobin 11.4 g/dL (12.2-16.2); Lymphocytes # 3.2 K/mm3 (0.7-4.5); Lymphocytes % 42.6 % (10-50); Mean Corpuscular HGB Conc 31.3 g/dL (31.8-35.4); Mean Corpuscular Hemoglobin 26.9 pg (27.0-31.2); Mean Platelet Volume 9.4 fl (7.4-10.4); Monocytes # 0.4 K/mm3 (0.1-1.0); Monocytes % 5.6 % (1.7-9.3); Neutrophils # 3.7 K/mm3 (1.8-7.8); Platelet Count 317 K/mm3 (142-424); Red Blood Count 4.25 M/mm3 (4.20-5.40); White Blood Count 7.5 K/mm3 (4.8-10.8)
[2020-04-04 18:07] LABS: Chloride 100 mmol/L (98-107); Potassium 4.7 mmoL/L (3.5-5.1); Sodium 133 mmol/L (136-145)
[2020-04-04 18:10] LABS: Alanine Aminotransferase 16 U/L (12-78); Albumin Level 3.7 g/dl (3.5-5.0); Albumin/Globulin Ratio 1.1 (1.1-1.8); Alkaline Phosphatase 146 U/L (38-126); Anion Gap 12.7 mEq/L (5-15); Aspartate Amino Transferase 26 U/L (14-36); Bilirubin,Total 0.5 mg/dl (0.2-1.3); Blood Urea Nitrogen 23 mg/dl (7-17); Calcium 9.4 mg/dl (8.4-10.2); Carbon Dioxide 25 mmol/L (22.0-30.0); Estimated Glomerular Filt Rate 52 ml/min (>60); GFR (African American) 63 ML/MIN (>60); Globulin 3.4 g/dL (1.3-3.2); Glucose 233 mg/dl (74-100); Total Protein,Serum 7.1 g/dl (6.3-8.2)
[2020-04-04 18:16] LABS: C-Reactive Protein 9.3 mg/L (0-4)
[2020-04-04 19:32] LABS: Hemoglobin A1C 8.9 % (4.0-6.0)
[2020-04-04 19:34] LABS: Erythrocyte Sedimentation Rate 115 mm/hr (0-30)
[2020-04-04 19:42] LABS: Coronavirus 19 IgG Antibody Negative (Negative); Coronavirus 19 IgM Antibody Negative (Negative)
== END ==
PROVIDERS: Visit Provider Podiatrist
DX: S91.302A Unspecified open wound, left foot, initial encounter (principal); M14.672 Charcot's joint, left ankle and foot; T81.31XS Disruption of external operation (surgical) wound, not elsewhere classified, sequela
CPT/HCPCS: 36415; 80053; 83036; 85025; 85651; 86140; 86328; 93005

== ENCOUNTER 2020-04-06 07:43 | Day surgery (SDC) | payer BC, SELFPAY ==
[2020-04-04 15:25] VITALS: BMI 38.2
[2020-04-06 08:05] VITALS: BP 177/88; PULSE 83; RESP 16; TEMP 36.2; O2SAT 83
[2020-04-06 08:34] LABS: POC Glucose,Bedside 322 (70-110)
--- NOTE | 2020-04-06 09:34 | HMH.OPNOTE ---
Date of procedure: 04/06/20 Pre-op Diagnosis:: 1. Left foot wound 2. S/p left Charcot reconstruction Post-op Diagnosis:: Same Procedure performed:: 1. Left foot wound debridement 2. Left foot application of graft (AmnioFill, EpiFix) Surgeon:: Aure Bee DPM Anesthesia: none Estimated blood loss (mL): 5 Clinical Note:: Sx: 03/02/20, s/p left external fixation device (Salvation Ilizarov frame) removal, calcaneus/proximal tibia bone biospy, alejandrina of bone graft, antibiotic powder, wound debridement with delayed primary closure, application of wound graft (Bioskin). 02/09/20, s/p left application of external fixation device, bone biospy, application of bone graft, antibiotic powder, foot wound debridement with delayed primary closure, application of wound graft (Bioskin). 01/06/20: s/p Left ext fix device removal, suture removal, revision of Charcot reconstruction, revision of non-union, alejandrina of new multiplanar ex fix ankle arthrodesis, subtalar joint arthrodesis, ankle synovectomy, alejandrina of bone graft, alejandrina of amniotic tissue graft, alejandrina of Prevena incisional wound VAC Patient is a 53-year-old female who presents status post left Charcot reconstruction with lateral left foot wound dehiscence. She she has had multiple debridements in office. Last week she had AmnioFill packed into wound base. We discussed application of the packing graft along with a skin graft. Plan for local room surgical debridement and application of graft. The patient has been instructed on the planned procedure, all risk versus benefits of the procedure discussed. These include but are not limited to: bleeding, infection, nerve and blood vessel damage, need for further surgery, delay in healing of soft tissue or bone, failure of bones to heal, non-union, mal-union, failure of the implant, prolonged pain and recovery, CRPS/RSD, DVT and anesthetic complications. No guarantees were given. All questions fully answered. The patient verbalized understanding and agreed to proceed with surgery. Written consent was obtained. Plan for labs: cbc, cmp, esr, crp, and covid. Operative findings:: [Pre debridement wound measured 1.1 x 0.6 x 0.4cm. Wound had 20% fibrotic slough and 80% granular tissue. Overall wound looked smaller compared to last office visit. All of the slough was removed in total revealing 100% granular wound base with bleeding edges. No serous drainage, no wound culture taken. Post debridement wound measured 1.3 x 0.7 x 0.4cm and did not probe to the bone. No purulence, malodor, ascending cellulitis noted. No signs of deep infection. Operative note:: On this date and time the patient was deemed an appropriate surgical candidate and with the informed consent signed the patient was wheeled from the preoperative holding area to the local procedure room. No local anesthesia was used for this case. Left foot wound debridement: The left lower extremity was prepped and draped in normal sterile fashion. Attention was directed to the dorsal lateral foot here previous surgery had been performed. There was postoperative wound dehiscence noted. Swelling was down. Wound base 20% fibrotic slough and 80% granular. Utilizing a 15 blade, forceps and curette, the wound was debrided sharply excisionally through skin into the subcu layer full thickness to deep fascia. Fibrotic tissue and biofilm was removed. No signs of deep infection. Good bleeding was noted. 100% granular base was noted. Post debridement the wound measured 1.1 x 0.7cm and probed 0.4 cm but not into bone. No purulence or signs of infection. Wound cleaned. Wound graft application (AmnioFill Human Placental Tissue Allograft x1: 500mg powder): Once the wound bed was debrided and prepped, the AmnioFill was packed into the wound base. The graft completed filled the wound bed, filling it to the level of the skin. No tunneling, voids or defects noted. Wound graft application (EpiFix: Deyhdrated Human Amnion/Chorion Membrane Allograft x1: 4.0x4.5cm mesh
[2020-04-06 09:54] VITALS: BP 162/78; PULSE 79; RESP 18; TEMP 36.3; O2SAT 98
[2020-04-06 10:31] VITALS: BP 151/71; PULSE 82; RESP 18; O2SAT 97
--- NOTE | 2020-04-13 12:55 | SUR.OPER ---
late entry: The following items were implanted into patients left foot during procedure on 04/06/20 (see intraoperative documentation for times) by Dr. Bee: MiMedx Amnio Fill 500.0mg Lot # [id number] Exp: 11/20/2024 MiMedx EpiFix Mesh 4.0x4.5cm Lot # [id number] Exp: 12/21/2024
== END 2020-04-06 10:35 | disposition home or self-care (01) ==
LOC: OUTP 07:44
PROVIDERS: PCP Pediatrics; Visit Provider Podiatrist
PROC: (CPT 11043; principal; 2020-04-06 09:00)
DX: T81.31XA Disruption of external operation (surgical) wound, not elsewhere classified, initial encounter (principal); J45.909 Unspecified asthma, uncomplicated; I25.10 Atherosclerotic heart disease of native coronary artery without angina pectoris; M79.674 Pain in right toe(s); I10 Essential (primary) hypertension; E11.40 Type 2 diabetes mellitus with diabetic neuropathy, unspecified; E78.5 Hyperlipidemia, unspecified; Z83.3 Family history of diabetes mellitus; Z82.49 Family history of ischemic heart disease and other diseases of the circulatory system; Z88.5 Allergy status to narcotic agent; Z88.0 Allergy status to penicillin; Z91.09 Other allergy status, other than to drugs and biological substances; Z79.82 Long term (current) use of aspirin; Z79.890 Hormone replacement therapy; Z79.4 Long term (current) use of insulin; Z79.891 Long term (current) use of opiate analgesic; Z79.52 Long term (current) use of systemic steroids; Z87.891 Personal history of nicotine dependence; Z86.14 Personal history of Methicillin resistant Staphylococcus aureus infection
CPT/HCPCS: 11043; 82962; J3370

== ENCOUNTER → 2020-04-18 10:11 | Outpatient (CLI) | payer BC, SELFPAY ==
--- NOTE | 2020-04-18 10:16 | XR_ITS ---
PROCEDURE: CR-XR ANKLE WT BEARING LT MIN 3V CR-XR FOOT WT BEARING LT 3 view Referring Doctor: Aure Bee Patient Age:54Y CLINICAL INDICATION: post-op left ankle and mid/hind foot fusion COMPARISON: CR XR ANKLE LT MIN 3V from 02/09/2020 CR XR ANKLE WT BEARING LT MIN 3V from 02/23/2020 CR XR ANKLE LT MIN 3V from 03/02/2020 CR XR FOOT WT BEARING LT 3V from 03/24/2020 CR XR FOOT WT BEARING LT 3V from 04/18/2020 TECHNIQUE: 3 View AP, Oblique, Lateral left ankle and left foot/weight-bearing FINDINGS: The weight-bearing LEFT FOOT AND ANKLE images are reviewed together: External fixator has been removed prior to March 02 radiograph; the cast material has been removed since March 02 as well. Extensive postsurgical changes of the foot and ankle once again noted: . Bone plate along the anterior distal tibia and talus.. . Arthrodesis procedure subtalar joint with incomplete union here. Lucency persists at this joint and along some of the involved fixation screws as described below-long lag screw extending passes obliquely through calcaneus into the talus, screws from the talus into the distal aspect of the calcaneus.-minimal lucency surrounding the calcaneal portion of this screw if anything is less evident versus February. . Long lag screws are present entering through head 1st metatarsal continuing along metatarsal into the, through navicular continuing to the distal talus. Additional lag screw into the 4th metatarsal into the cuboid... . bony sclerosis noted with developing fusion at the tibial talar region There is persistent lucency at the talocalcaneal region and talonavicular area indicating incomplete/non bony fusion. The lucency around the tip of the screw from the talus into the calcaneus on again noted but if anything less evident on today's studies. Diffuse soft tissue swelling about the ankle but some wispy density in soft tissues overlying the lateral malleolus again noted and could reflect some deposited antibiotic material which appears to be resorbing IMPRESSION: Status post ankle and hindfoot/midfoot fusion as described above. Cast and external fixators have been removed been removed. There is developing fusion at the tibial talar joint. Suggestion some persistent lucency at the talocalcaneal and talonavicular region, with questionable loosening of the screw into the distal aspect of the calcaneus from the talar bone plate, how often however if anything these latter the features are less evident than on the March 02 ankle radiograph. Progressive sclerosis about the fused joints . Dictated by: Abdirashid Corona MD 04/26/2020 12:38 Abdirashid Corona MD in [place] 04/26/2020 12:38
== END ==
PROVIDERS: PCP Pediatrics; Visit Provider Podiatrist
DX: Z98.890 Other specified postprocedural states (principal); M25.572 Pain in left ankle and joints of left foot
CPT/HCPCS: 73610; 73630

== ENCOUNTER 2020-05-05 10:45 | Outpatient (RCR) | payer BC, OTHER, SELFPAY ==
--- NOTE | 2020-05-05 12:03 | HMH.PTOPEV ---
PT Outpatient Evaluation Rehab PT Outpatient Evaluation Start: 05/05/20 11:34 Freq: Status: Active Protocol: Document 05/05/20 11:34 OREN (Rec: 05/05/20 12:03 [email or web address] [id number]) Electronically Signed By Reuben Orellana, PT 05/05/20 11:34 Outpatient Therapy Subjective History Subjective History Patient is a 54 year old female presenting to outpatient PT with reports of chronic foot/ankle pain S/P mulitple surgical procedures for L charcot foot. Patient reports initial injury occured when she dropped the lid to a crock pot on her foot resulting in mulitple fractures. Initial surgery was a fusion surgery performed 12/2016. Patient reports multiple surgical procedures following initial surgery, mainly placement and removal of external fixators. Most recent surgery occurred 09/2019 with placement of external fixator and removal 11/2019. Comorbidities include hx of diabetic neuropathy, HTN, HL, asthma, cholecystectomy and C- section. Chief Complaint Pain,Stiff,Swelling, Paresthesia,Weakness Symptom Type Ache,Throb Symptoms Relieved By Rest/Positioning,Ice,OTC Meds Prior Functional Limitations None Current Functional Limitations Housework,Standing,Squatting, Recreation Activity,Walking, Stairs,Balance Symptom Description Constant but Variable Level of pain today (0-10) 0 Pain scale - at its best (0-10) 0 Pain scale - at its worst (0-10) 2 Ankle/Foot Eval Gait Observation General Gait Pattern Observation Antalgic Gait,Decrease Weight Bear (L) Assistive Device Ambulation Assistive Device Straight Cane Palpation Tenderness left Ankle/Foot Palpation Findings Tenderness Ankle/Foot Palpation Overall Comment med/lat malleolus, 1-3 metatarsal, peroneal mm 3/4 ROM Ankle/Foot Dorsiflexion w/Knee Extended -2 Active Range Motion (degrees) Ankle/Foot Dorsiflexion w/Knee Extended 2 Passive Range (degrees) Ankle/Foot Plantar Flexion Active Range 14 of Motion (degrees) Ankle/Foot Plantar Flexion Passive
== END 2020-05-05 10:50 | disposition home or self-care (01) ==
LOC: PT 10:45
PROVIDERS: Visit Provider Podiatrist
DX: M14.672 Charcot's joint, left ankle and foot (principal); Z98.890 Other specified postprocedural states
CPT/HCPCS: 97163

== ENCOUNTER → 2020-05-20 09:40 | Outpatient (CLI) | payer BC, SELFPAY ==
--- NOTE | 2020-05-20 09:44 | XR_ITS ---
PROCEDURE: XR SHOULDER LT MIN 2V CLINICAL INDICATION: LT shoulder COMPARISON: No exams were available for comparison FINDINGS: No fracture or dislocation. No lytic or blastic change. There is normal mineralization. There are mild osteoarthritic changes of the glenohumeral joint the left. The AC joint has an unremarkable appearance. No significant subacromial stenosis. Other findings:None. IMPRESSION: Mild osteoarthritis left glenohumeral joint Dictated by: Kofi Suarez MD 05/20/2020 11:30 Kofi Suarez MD in [place] 05/20/2020 11:30
--- NOTE | 2020-05-20 09:44 | XR_ITS ---
PROCEDURE: XR SHOULDER RT MIN 2V CLINICAL INDICATION: RT shuolder pain COMPARISON: No exams were available for comparison FINDINGS: No fracture or dislocation. No lytic or blastic change. There is normal mineralization. The joint spaces are well-preserved. No significant degenerative/arthritic changes. No erosive changes evident. Other findings:None. 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
== END ==
LOC: RAD 09:41
PROVIDERS: PCP Pediatrics; Visit Provider Orthopaedic Surgery
DX: M25.512 Pain in left shoulder (principal); M25.511 Pain in right shoulder
CPT/HCPCS: 73030

== ENCOUNTER → 2020-06-30 10:56 | Outpatient (CLI) | payer BC, SELFPAY ==
--- NOTE | 2020-06-30 11:05 | XR_ITS ---
PROCEDURE: XR ANKLE WT BEARING LT MIN 3V CLINICAL INDICATION: post op Follow-up fusion COMPARISON: CR XR FOOT LT MIN 3V from 02/09/2020 CR XR ANKLE LT MIN 3V from 03/02/2020 CR XR ANKLE WT BEARING LT MIN 3V from 03/24/2020 CR XR FOOT WT BEARING LT 3V from 06/30/2020 FINDINGS: Anterior bone plate remains in place at the tibia and talus. There is extensive bony hypertrophy at the tibiofibular syndesmotic region. The joint space at the tibia and talus does not appear fused. Persistent lucency is present at this region. The 2 screws which were present along the talus arm the bone plate have fractured at their heads. There has been distraction of the inferior aspect of the screws from the bone plate by approximately 3 mm. A prominent screws present at the talocalcaneal region. The joint space does not appears fused at the talocalcaneal area. A long lag screw is present from the distal aspect of the 1st metatarsal through the fused cuneiform into the navicular and distal aspect of the talus. There is a mildly prominent zone of lucency along the screw. Additional screws present from the distal aspect of the 4th metatarsal into the cuboid. No acute fracture is apparent. There is some heterotopic ossification versus residual from antibiotic beads anterior to the talus. IMPRESSION: Status post extensive foot surgery and ankle surgery as described above with bony hardware present as described. The most significant change is fracture of the heads of the 2 screws along the talus aspect of the anterior tibial talar bone plate with some separation of the bone plate and screws by approximately 3 mm. Please see above for detail Dictated by: Kofi Suarez MD 06/30/2020 17:09 Kofi Suarez MD in [place] 06/30/2020 17:09
--- NOTE | 2020-06-30 11:05 | XR_ITS ---
PROCEDURE: XR FOOT WT BEARING RT 3V CLINICAL INDICATION: foot pain COMPARISON: CR XR FOOT WT BEARING LT 3V from 02/23/2020 CR XR FOOT LT MIN 3V from 03/02/2020 CR XR FOOT WT BEARING LT 3V from 03/24/2020 CR XR FOOT WT BEARING LT 3V from 04/18/2020 CR XR ANKLE WT BEARING LT MIN 3V from 06/30/2020 FINDINGS: No fracture or dislocation. No lytic or blastic change. There is normal mineralization. The joint spaces are well-preserved. No significant degenerative/arthritic changes. No erosive changes evident. Other findings:None. IMPRESSION: No acute findings. Dictated by: Kofi Suarez MD 06/30/2020 17:01 Kofi Suarez MD in [place] 06/30/2020 17:02
== END ==
LOC: RAD 10:58
PROVIDERS: PCP Pediatrics; Visit Provider Podiatrist
DX: M79.672 Pain in left foot (principal); M79.671 Pain in right foot; Z98.890 Other specified postprocedural states
CPT/HCPCS: 73610; 73630

== ENCOUNTER 2020-07-28 13:00 | Outpatient (RCR) | payer BC, SELFPAY ==
--- NOTE | 2020-07-14 11:54 | HMH.PTOPEV ---
PT Outpatient Evaluation Rehab PT Outpatient Evaluation Start: 07/14/20 11:07 Freq: Status: Active Protocol: Document 07/14/20 11:26 [email or web address] (Rec: 07/14/20 11:48 OREN [id number]) Electronically Signed By Reuben Orellana, PT 07/14/20 11:26 Outpatient Therapy Subjective History Subjective History Patient is a 54 year old female presenting to outpatient PT with reports of L foot/ankle pain/swelling/ stiffness. Patient underwent sx for L charcot foot reconstruction 11/2019. Patient has required multiple external fixators per patient report. Patient ambulates into clinic with SPC and custom CAM walker. Patient reports BLE neuropathy secondary to diabetes. Other comorbidities include asthma, HTN, HL, cholecystectomy, B CTR and B retinal detachment affecting vision. Chief Complaint Pain,Stiff,Swelling, Paresthesia,Weakness Symptom Type Sharp,Numbness,Tingling Symptoms Relieved By Rest/Positioning,Ice, Prescription Meds Symptoms Aggravated By Standing,Physical Activity, Walking Prior Functional Limitations None Current Functional Limitations Housework,Standing,Squatting, Recreation Activity,Walking, Stairs,Balance Symptom Description Intermittent Level of pain today (0-10) 2 Pain scale - at its best (0-10) 0 Pain scale - at its worst (0-10) 5 Ankle/Foot Eval Gait Observation General Gait Pattern Observation Antalgic Gait,Decrease Weight Bear (L) Assistive Device Ambulation Assistive Device Straight Cane Palpation Tenderness left Ankle/Foot Palpation Findings Tenderness Ankle/Foot Palpation Overall Comment L lateral malleolus and hallux 3/4 ROM Ankle/Foot Dorsiflexion w/Knee Extended -8 Active Range Motion (degrees) Ankle/Foot Dorsiflexion w/Knee Extended 0 Passive Range (degrees) Ankle/Foot Plantar Flexion Active Range 23 of Motion (degrees) Ankle/Foot Plantar Flexion Passive Range 27 of Motion (degrees) Ankle/Foot Eversion Active Range of 3 Motion (degrees) Ankle/Foot Eversion Passive Range of 9 Motion (degrees) Ankle/Foot I
== END 2020-07-28 13:05 | disposition home or self-care (01) ==
LOC: PT 13:00
PROVIDERS: Visit Provider Podiatrist
DX: M14.672 Charcot's joint, left ankle and foot (principal); Z98.890 Other specified postprocedural states
CPT/HCPCS: 97163

== ENCOUNTER → 2020-08-04 09:01 | Outpatient (CLI) | payer BC, SELFPAY ==
--- NOTE | 2020-08-04 09:06 | XR_ITS ---
PROCEDURE: XR ANKLE WT BEARING LT MIN 3V CLINICAL INDICATION: pain, fall Left foot and ankle pain following injury, prior fixation. COMPARISON: CR XR ANKLE LT MIN 3V from 03/02/2020 CR XR ANKLE WT BEARING LT MIN 3V from 03/24/2020 CR XR ANKLE WT BEARING LT MIN 3V from 04/18/2020 CR XR FOOT WT BEARING RT 3V from 06/30/2020 CR XR ANKLE WT BEARING LT MIN 3V from 06/30/2020 CR XR FOOT WT BEARING LT 3V from 06/30/2020 CR XR FOOT WT BEARING LT 3V from 08/04/2020 CR XR TIBIA FIBULA LT 2V from 08/04/2020 FINDINGS: Tib fib and ankle: Anterior bone plate once again noted at the distal tibia with a curved distal end along the talus with 2 fractured screws into the neck of the talus. There does appear to be incomplete bony fusion at the ankle joint. Heterotopic ossification noted anterior to the talus portion of the tibial bone plate. Prior lag screw placement from the calcaneus into the talus with no evidence of bony union at the talocalcaneal joint. Lucencies are present in the proximal to mid shaft of the tibia and fibula from prior external fixation with calcification noted in the mid calf medially and posteriorly as well as some anteriorly and laterally consistent with heterotopic ossification. No acute fracture or dislocation of the ankle or tib fib. Left foot: Long lag screw once again noted from the distal aspect of the 1st metatarsal into the medial cuneiform navicular and distal aspect of the talus. There is a mildly prominent zone of lucency along the distal aspect of the screw similar to the previous exam. An additional screw lag screws present from the distal aspect of the 4th metatarsal into the cuboid. There is fusion of the navicular and cuneiforms as well as the base of the 1st 2nd and 3rd metatarsals. There is non fusion of the 4th metatarsal cuboid junction Overall no significant change from the previous exam IMPRESSION: Prior internal fixation as detailed above with 2 fractured screws at the distal aspect of the tibial talar bone plate not significantly changed and mild prominent lucency along the 1st metatarsal lag screw. Please see above for detail. Overall no significant change. No acute fracture Dictated by: Kofi Suarez MD 08/04/2020 13:12 Kofi Suarez MD in [place] 08/04/2020 13:12
== END ==
LOC: RAD 09:03
PROVIDERS: PCP Pediatrics; Visit Provider Nurse Practitioner
DX: M25.572 Pain in left ankle and joints of left foot (principal); M79.605 Pain in left leg; M79.672 Pain in left foot
CPT/HCPCS: 73590; 73610; 73630

== ENCOUNTER → 2020-08-25 14:26 | Outpatient (CLI) | payer BC, OTHER, SELFPAY ==
[2020-08-25 14:43] LABS: Basophils % 0.5 % (0.1-2.0); Eosinophils # 0.3 K/mm3 (0.0-0.4); Eosinophils % 3.9 % (0.1-12.0); Hematocrit 36.3 % (37.0-47.0); Hemoglobin 11.2 g/dL (12.2-16.2); Lymphocytes # 3.8 K/mm3 (0.7-4.5); Lymphocytes % 49.4 % (10-50); Mean Corpuscular Hemoglobin 26.3 pg (27.0-31.2); Mean Corpuscular Volume 84.7 fl (81-99); Mean Platelet Volume 8.9 fl (7.4-10.4); Monocytes # 0.5 K/mm3 (0.1-1.0); Monocytes % 6.7 % (1.7-9.3); Neutrophils # 3.1 K/mm3 (1.8-7.8); Neutrophils % 39.5 % (37.0-80.0); Platelet Count 287 K/mm3 (142-424); Red Blood Count 4.28 M/mm3 (4.20-5.40); Red Cell Distribution Width 16.4 % (11.5-17.5); White Blood Count 7.8 K/mm3 (4.8-10.8)
[2020-08-25 15:07] LABS: Erythrocyte Sedimentation Rate 27 mm/hr (0-30)
[2020-08-25 16:18] LABS: Alanine Aminotransferase 17 U/L (12-78); Albumin Level 3.9 g/dl (3.5-5.0); Albumin/Globulin Ratio 1.3 (1.1-1.8); Alkaline Phosphatase 100 U/L (38-126); Aspartate Amino Transferase 31 U/L (14-36); Bilirubin,Total 0.3 mg/dl (0.2-1.3); Blood Urea Nitrogen 17 mg/dl (7-17); Calcium 9.2 mg/dl (8.4-10.2); Carbon Dioxide 27 mmol/L (22.0-30.0); Chloride 101 mmol/L (98-107); Estimated Glomerular Filt Rate 36 ml/min (>60); GFR (African American) 44 ML/MIN (>60); Globulin 3.1 g/dL (1.3-3.2); Glucose 160 mg/dl (74-100); Sodium 137 mmol/L (136-145)
[2020-08-25 16:25] LABS: C-Reactive Protein 6.3 mg/L (0-4)
== END ==
PROVIDERS: Visit Provider Nurse Practitioner
DX: M79.675 Pain in left toe(s) (principal); L53.9 Erythematous condition, unspecified
CPT/HCPCS: 36415; 80053; 85025; 85651; 86140

== ENCOUNTER → 2020-09-09 10:37 | Outpatient (CLI) | payer BC, OTHER, SELFPAY | PROVIDERS: PCP Pediatrics; Visit Provider Internal Medicine Cardiovascular Disease | DX: R06.02 Shortness of breath (principal); R55 Syncope and collapse; R42 Dizziness and giddiness; I10 Essential (primary) hypertension; E78.2 Mixed hyperlipidemia; E66.9 Obesity, unspecified; Z68.39 Body mass index [BMI] 39.0-39.9, adult | CPT/HCPCS: 93270 ==

== ENCOUNTER → 2020-09-13 09:50 | Outpatient (POV) | payer BC, OTHER, SELFPAY | PROVIDERS: Visit Provider Dermatology | DX: Z00.00 Encounter for general adult medical examination without abnormal findings (principal) ==

== ENCOUNTER 2020-09-27 17:00 | Outpatient (RCR) | payer BC, OTHER, SELFPAY ==
--- NOTE | 2020-08-18 10:47 | HMH.PTOPEV ---
PT Outpatient Evaluation Rehab PT Outpatient Evaluation Start: 08/18/20 10:31 Freq: Status: Active Protocol: Document 08/18/20 10:31 OREN (Rec: 08/18/20 10:46 OREN [id number]) Electronically Signed By Reuben Orellana, PT 08/18/20 10:31 Outpatient Therapy Subjective History Subjective History Patient is a 54 year old female presenting to outpatient PT with reports of L foot/ankle pain/swelling/ stiffness. Patient underwent sx for L charcot foot reconstruction 11/2019. Patient has required multiple external fixators per patient report. Patient ambulates into clinic with SPC and custom CAM walker. Patient reports BLE neuropathy secondary to diabetes. Other comorbidities include asthma, HTN, HL, cholecystectomy, B CTR and B retinal detachment affecting vision. She was previously evlauted for PT services, but was unable to follow-up secondary to familial issues. Chief Complaint Pain,Stiff,Swelling, Paresthesia,Weakness Symptom Type Throb,Burning,Numbness, Tingling,Shooting Symptoms Relieved By Rest/Positioning,Ice Prior Functional Limitations Housework,Standing,Recreation Activity,Walking,Stairs, Balance Current Functional Limitations Housework,Standing,Recreation Activity,Walking,Stairs, Balance Symptom Description Constant but Variable Level of pain today (0-10) 2 Pain scale - at its best (0-10) 2 Pain scale - at its worst (0-10) 8 Ankle/Foot Eval Gait Observation General Gait Pattern Observation Antalgic Gait,Decrease Weight Bear (L) Assistive Device Ambulation Assistive Device Straight Cane Palpation Tenderness left Ankle/Foot Palpation Findings Tenderness Ankle/Foot Palpation Overall Comment lateral malleolus 2/4 ROM Ankle/Foot Dorsiflexion w/Knee Extended -1 Active Range Motion (degrees) Ankle/Foot Dorsiflexion w/Knee Extended 5 Passive Range (degrees) Ankle/Foot Plantar Flexion Active Range 16 of Motion (degrees) Ankle/Foot Plantar Flexion Passive Range 20 of Motio
--- NOTE | 2020-09-15 15:05 | HMH.RHREAS ---
Rehab Reassessment Rehab OP Re-assessment Start: 09/15/20 14:11 Freq: Status: Active Protocol: Document 09/15/20 14:11 OREN (Rec: 09/15/20 14:14 OREN [id number]) Electronically Signed By Reuben Orellana, PT 09/15/20 14:11 Rehab Re-assessment Subjective Subjective Patient reports no improvement since start of care. Objective Objective Notes AROM: DF 0; PF16; INV 17; EV 1 PROM: DF 7; PF 25; INV 25; EV 9 MMT: 3+/5 grossly throughout available ROM Pain: 5/10 today; 9/10 at worst over past week Neuro: Severe neuropathy of LLE from paredes to toes Assessment Progress Assessment Slower Than Expected Assessment Notes Today is the second follow up visit for this patient in the last 28 days. Progression/ participation has been hindered secondary to illness, symptom exacerbation and transportation issues. Severe ROM limitations as noted above, though slight improvements with intro of HEP . Functional limitations with all standing and ambulatory activities persist. Patient goals met STG 2 Goals Not Met All others Revised Goals NA Plan Plan Continue with current POC. Frequency of Therapy 2x/week Duration of therapy 4 weeks Time and Billing Re-Eval Time 15 Re-Eval Billing Units 1 PHYSICIAN CERTIFICATION: I certify the specified therapy services for Ewa Guallpa are required, authorized, and reviewed every 30 days.
== END 2020-09-27 17:05 | disposition home or self-care (01) ==
LOC: PT 17:00
PROVIDERS: PCP Pediatrics; Visit Provider Podiatrist
DX: E11.610 Type 2 diabetes mellitus with diabetic neuropathic arthropathy (principal); M79.672 Pain in left foot; M14.672 Charcot's joint, left ankle and foot; M79.675 Pain in left toe(s); R60.0 Localized edema; Z79.4 Long term (current) use of insulin
CPT/HCPCS: 97010; 97110; 97140; 97163; 97164

== ENCOUNTER 2020-09-29 11:50 | Emergency (ER) | payer BC, OTHER, SELFPAY ==
[2020-09-29 11:52] VITALS: BP 179/75; PULSE 91; RESP 18; TEMP 36.9; O2SAT 100; BMI 31.5
--- NOTE | 2020-09-29 12:18 | XR_ITS ---
PROCEDURE: XR CHEST PORTABLE CLINICAL HISTORY: soa COMPARISON: CR XR CHEST PORTABLE PICC PLAC from 12/05/[address] ANGIO CHEST from 06/05/2019 CR XR CHEST 2V from 06/05/2019 CR XR CHEST 2V from 11/10/2019 FINDINGS: The cardiomediastinal silhouette and pulmonary vascularity are within normal limits. The lungs are clear without infiltrates, suspicious nodules, or pleural effusions. No acute bony abnormalities. IMPRESSION: No acute findings. Dictated by: Kofi Suarez MD 09/29/2020 12:38 Kofi Suarez MD in [place] 09/29/2020 12:38
[2020-09-29 12:20] VITALS: PULSE 93; PULSE 97
[2020-09-29 12:56] LABS: Basophils # 0.1 K/mm3 (0-0.2); Basophils % 0.5 % (0.1-2.0); Eosinophils # 0.2 K/mm3 (0.0-0.4); Eosinophils % 1.9 % (0.1-12.0); Hematocrit 36.8 % (37.0-47.0); Hemoglobin 11.9 g/dL (12.2-16.2); Lymphocytes # 6.8 K/mm3 (0.7-4.5); Lymphocytes % 57.1 % (10-50); Mean Corpuscular HGB Conc 32.3 g/dL (31.8-35.4); Mean Corpuscular Hemoglobin 27.2 pg (27.0-31.2); Mean Corpuscular Volume 84.1 fl (81-99); Monocytes # 0.4 K/mm3 (0.1-1.0); Monocytes % 3.4 % (1.7-9.3); Neutrophils # 4.4 K/mm3 (1.8-7.8); Neutrophils % 37.1 % (37.0-80.0); Platelet Count 266 K/mm3 (142-424); Red Blood Count 4.37 M/mm3 (4.20-5.40); Red Cell Distribution Width 17.5 % (11.5-17.5); White Blood Count 11.9 K/mm3 (4.8-10.8)
[2020-09-29 12:58] LABS: MANUAL DIFFERENTIAL MANUAL DIFFERENTIAL (MANUAL DIFF)
[2020-09-29 13:01] LABS: Chloride 98 mmol/L (98-107)
[2020-09-29 13:02] LABS: Potassium 4.2 mmoL/L (3.5-5.1); Sodium 133 mmol/L (136-145)
[2020-09-29 13:04] LABS: Alanine Aminotransferase 16 U/L (12-78); Aspartate Amino Transferase 33 U/L (14-36); Blood Urea Nitrogen 20 mg/dl (7-17); Creatinine Clearance Estimated 93 mL/min (50-200); Estimated Glomerular Filt Rate 52 ml/min (>60); GFR (African American) 63 ML/MIN (>60)
[2020-09-29 13:05] LABS: Albumin Level 3.9 g/dl (3.5-5.0); Albumin/Globulin Ratio 1.1 (1.1-1.8); Alkaline Phosphatase 126 U/L (38-126); Anion Gap 16.2 mEq/L (5-15); Bilirubin,Total 0.4 mg/dl (0.2-1.3); Calcium 8.7 mg/dl (8.4-10.2); Carbon Dioxide 23 mmol/L (22.0-30.0); Globulin 3.4 g/dL (1.3-3.2); Glucose 377 mg/dl (74-100); Total Protein,Serum 7.3 g/dl (6.3-8.2)
[2020-09-29 13:08] LABS: Eosinophils % 1 % (0-3); Hypochromasia 1+; Lymphocytes % 57 % (10-50); Monocytes % 3 % (2-9); Neutrophils % 39 % (42-76); Platelet Estimate Normal; Total Cells Counted 100
[2020-09-29 13:17] LABS: Troponin I < 0.01 ng/ml (0.00-0.034)
[2020-09-29 13:38] VITALS: BP 160/78; PULSE 92; RESP 18; O2SAT 96
--- NOTE | 2020-09-29 13:41 | HMH.EDGENADL ---
ED Disposition Clinical Impression: Acute bronchitis, Asthma with exacerbation Disposition: Home, Self-Care Condition on Discharge: Good Additional Instructions: Return the emergency room for worsening difficulty breathing chest pain or any other concerns within the next 8 hours otherwise follow-up with your primary care physician within the next few days. Prescriptions: Azithromycin [Azithromycin 500mg Tab] 500 mg PO DAILY #3 tab Transmission Status: Pending to [facility] #[id number] predniSONE [Prednisone 50mg Tab] 50 mg PO DAILY 5 Days #5 tab Transmission Status: Pending to [facility] #[id number] Guaifenesin/Dextromethorphan [Tussin Dm Cough-Chest Congest] 10 ml PO Q6 PRN 5 Days #120 liquid PRN Reason: Cough Transmission Status: Pending to [facility] #[id number] Referrals: Juan Tabares [Primary Care Provider] - - Critical Care Critical Care Time: No Attestation: On 09/29/20, the high probability of a clinically significant, sudden or life threatening deterioration of the following system(s) required my full and direct attention, intervention and personal management. The time I documented below is in addition to time spent performing reported procedures but includes the following listed in this critical care notation. Medical Decision Making - Medical Records Medical records reviewed: Yes: I reviewed the patient's medical records. - Panchito Inquiry Pt receiving controlled substance: No Vital Signs: 09/29/20 11:52 09/29/20 12:20 Temperature 98.4 F Temperature Source Oral Pulse Rate 93 H Pulse Rate [Left] 91 H Respiratory Rate 18 Blood Pressure [Right Arm] 179/75 H Blood Pressure Mean [Right Arm] 109 Blood Pressure Source [Right Arm] Automatic Cuff 02 Sat by Pulse Oximetry 100 Oxygen Delivery Method Room Air - Lab Data Lab Results 09/29/20 12:45: WBC 11.9 H, RBC 4.37, Hgb 11.9 L, Hct 36.8 L, MCV 84.1, MCH 27.2, MCHC 32.3, RDW 17.5, Plt Count 266, MPV 9.0, Neut % (Auto) 37.1, Lymph % (Auto) 57.1 H, Lares % (Auto) 3.4, Eos % (Auto) 1.9, Baso % (Auto) 0.5, Neut # (Auto) 4.4, Lymph # (Auto) 6.8 H, Lares # (Auto) 0.4, Eos # (Auto) 0.2, Baso # (Auto) 0.1, Total Counted 100, Neutrophils % (Manual) 39 L, Lymphocytes % (Manual) 57 H, Monocytes % (Manual) 3, Eosinophils % (Manual) 1, Platelet Estimate Normal, Hypochromasia 1+ 09/29/20 12:45: Sodium 133 L, Potassium 4.2, Chloride 98, Carbon Dioxide 23, Anion Gap 16.2 H, BUN 20 H, Creatinine 1.10 H, Estimated Creat Clear 93, Estimated GFR 52 L, Est GFR ( Amer) 63, Glucose 377 H, Calcium 8.7, Total Bilirubin 0.4, AST 33, ALT 16, Alkaline Phosphatase 126, Troponin I < 0.01, Total Protein 7.3, Albumin 3.9, Globulin 3.4 H, Albumin/Globulin Ratio 1.1 Result diagrams: 09/29/20 12:45 09/29/20 12:45 Orders (Tests/Meds): ED MEDICATIONS Discontinued Medications Generic Name Dose Route Start Last Admin Trade Name Freq PRN Reason Stop Dose Admin Albuterol/Ipratropium 3 ml 09/29/20 12:18 09/29/20 12:20 Ipratropium/Albuterol 3 Ml Neb IH 09/29/20 12:19 3 ml ONCE ONE Administration ORDERS Category Date Time Status Troponin I Q3H Lab 09/29/20 15:30 Ordered Troponin I Q3H Lab 09/29/20 18:30 Ordered EKG Request [ECG Request by /Matilde] Stat Y 09/29/20 12:17 Ordered Medical Decision Narrative: 54-year-old female presents with symptoms consistent with bronchitis. She is in no acute distress nontoxic-appearing comfortable in the room however is coughing a lot. She has mild hypoxia on exam at 91% however this did improve with DuoNeb and she was feeling much better. Very atypical symptoms for pulmonary embolism, myocardial infarction, aortic dissection, troponin was negative. No evidence of pneumonia on chest x-ray however symptoms consistent with acute bronchitis over 1 week plan to give steroids antibiotics and cough medicine and strict return precautions General Adult HPI - General Chief complaint: Nabila
[2020-09-29 14:00] VITALS: BP 160/78; PULSE 91; RESP 16; TEMP 36.9; O2SAT 98
== END 2020-09-29 14:01 | disposition home or self-care (01) ==
PROVIDERS: Emergency Provider Emergency Medicine; PCP Pediatrics
DX: J45.901 Unspecified asthma with (acute) exacerbation (principal); J20.9 Acute bronchitis, unspecified; E11.9 Type 2 diabetes mellitus without complications; I25.10 Atherosclerotic heart disease of native coronary artery without angina pectoris; K21.9 Gastro-esophageal reflux disease without esophagitis; I10 Essential (primary) hypertension; E78.5 Hyperlipidemia, unspecified; Z87.891 Personal history of nicotine dependence; Z79.899 Other long term (current) drug therapy; Z88.0 Allergy status to penicillin; Z88.5 Allergy status to narcotic agent; Z88.8 Allergy status to other drugs, medicaments and biological substances
CPT/HCPCS: 71045; 80053; 84484; 85007; 85025; 99282

== ENCOUNTER → 2020-10-13 09:40 | Outpatient (POV) | payer BC, OTHER, SELFPAY ==
[2020-10-13 10:23] VITALS: BP 163/84; PULSE 82; RESP 18; O2SAT 97; BMI 42.0
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
== END ==
PROVIDERS: PCP Pediatrics; Visit Provider Clinical Nurse Specialist Family Health
DX: M54.5 Low back pain (principal); M79.671 Pain in right foot; M79.672 Pain in left foot
CPT/HCPCS: 99202; G0463

== ENCOUNTER → 2020-10-19 14:56 | Outpatient (CLI) | payer BC, OTHER, SELFPAY ==
--- NOTE | 2020-10-19 15:03 | MR_ITS ---
PROCEDURE: MR LUMBAR SPINE WO CON CLINICAL INDICATION: BACK, LEG PAIN Pt c/o lbp and bilateral foot neuropathy for years. COMPARISON: MR ANKLTWW MR ankle LT wo/w con from 08/13/2018 TECHNIQUE: Standard multiplanar multiecho sequences are performed without contrast. 3-D MIP and myelographic images are also rendered and reviewed FINDINGS: There is normal alignment. The spinal cord ends at the L2 level. There is mild degenerative disc disease at T11-T12. T12-L1: Minimal degenerative disc disease with minimal anterior osteophytes. L1-L2: Small anterior osteophytes. L2-L3: Unremarkable. L3-L4: Unremarkable. L4-5: Unremarkable. L5-S1: Minimal bulging disc slightly eccentric toward the left with mild left-sided foraminal narrowing. No canal stenosis or disc herniations evident. IMPRESSION: Mild degenerative changes as described above Minimal asymmetric bulging disc L5-S1 with mild left-sided foraminal narrowing. No canal stenosis or disc herniation evident Dictated by: Kofi Suarez MD 10/20/2020 07:55 Kofi Suarez MD in [place] 10/20/2020 07:55
== END ==
PROVIDERS: PCP Pediatrics; Visit Provider Clinical Nurse Specialist Family Health
DX: M54.5 Low back pain (principal); M79.605 Pain in left leg; M79.604 Pain in right leg
CPT/HCPCS: 72148; 76376

== ENCOUNTER → 2020-11-24 08:33 | Outpatient (POV) | payer BC, SELFPAY ==
[2020-11-24 08:38] VITALS: BP 164/83; PULSE 80; RESP 18; O2SAT 96; BMI 38.2
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
== END ==
PROVIDERS: PCP Pediatrics; Visit Provider Family Medicine
DX: M51.16 Intervertebral disc disorders with radiculopathy, lumbar region (principal)
CPT/HCPCS: 99212; G0463

== ENCOUNTER 2020-12-09 10:52 | Day surgery (SDC) | payer BC, SELFPAY ==
[2020-12-09 11:29] VITALS: BP 145/74; PULSE 87; RESP 18; TEMP 36.4; O2SAT 98; BMI 38.2
[2020-12-09 11:46] VITALS: BP 148/72; PULSE 84; RESP 18; O2SAT 97
[2020-12-09 11:47] VITALS: BP 148/72; PULSE 89; RESP 18; O2SAT 98
--- NOTE | 2020-12-09 11:48 | HMH.PMPROC ---
- Procedure Date: 12/09/20 Time: 11:48 Anesthesiologist:: Rigoberto Casarez MD Complications:: None Pre-procedure Diagnosis:: Degenerative disc disease of lumbar spine with lumbar radiculopathy symptoms Post-procedure Diagnosis:: Same Indications for Procedure:: Patient is a pleasant 54-year-old white female who we are treating for low back pain with lumbar radiculopathy symptoms. She has increasing pain in her low back radiating down both legs. We will do a lumbar epidural steroid injection today to help her with her pain symptoms. Currently she is in a walking boot with previous fracture to her ankle. Procedure Details:: Informed consent was obtained and the risk and benefits of the procedure was explained to the patient. The patient was taken to the procedure room. The patient was placed prone on the procedure table. The patient was prepped and draped in sterile fashion. C-arm fluoroscopy was used to view the lumbar spine. Skin and subcutaneous tissues were anesthetized using lidocaine. I placed an 18-gauge epidural needle and advanced into the L4-L5 interspace using fluoroscopic guidance and [id number] to air. After confirmation of needle placement in the epidural space with dye I injected 2 mL of lidocaine 1.5% with Depo-Medrol 80 mg. Patient tolerated the procedure well with no complications. Plan and Disposition:: We will follow-up with her in 2 weeks. Will reevaluate symptoms at that time.
[2020-12-09 11:58] VITALS: BP 147/65; PULSE 88; RESP 20; O2SAT 98
== END 2020-12-09 11:59 | disposition home or self-care (01) ==
LOC: SC.PAINP 10:53
PROVIDERS: PCP Pediatrics; Visit Provider Anesthesiology
DX: M51.16 Intervertebral disc disorders with radiculopathy, lumbar region (principal); G43.909 Migraine, unspecified, not intractable, without status migrainosus; E78.5 Hyperlipidemia, unspecified; I10 Essential (primary) hypertension; J45.909 Unspecified asthma, uncomplicated; K21.9 Gastro-esophageal reflux disease without esophagitis; E11.9 Type 2 diabetes mellitus without complications; F41.9 Anxiety disorder, unspecified; F32.9 Major depressive disorder, single episode, unspecified; Z87.891 Personal history of nicotine dependence; Z88.6 Allergy status to analgesic agent; Z88.0 Allergy status to penicillin; Z88.8 Allergy status to other drugs, medicaments and biological substances
CPT/HCPCS: 62323; J1030; Q9966

== ENCOUNTER → 2020-12-29 10:11 | Outpatient (CLI) | payer BC, SELFPAY ==
--- NOTE | 2020-12-29 10:15 | XR_ITS ---
PROCEDURE: XR ANKLE WT BEARING LT MIN 3V XR foot weight-bearing left three views CLINICAL INDICATION: ankle pain COMPARISON: CR XR ANKLE WT BEARING LT MIN 3V from 03/24/2020 CR XR ANKLE WT BEARING LT MIN 3V from 04/18/2020 CR XR ANKLE WT BEARING LT MIN 3V from 06/30/2020 CR XR ANKLE WT BEARING LT MIN 3V from 08/04/2020 CR XR FOOT WT BEARING LT 3V from 12/29/2020 FINDINGS: Status post ankle joint fusion with anterior tibial talar bone plate. The joint space is still present at the ankle. Prior talar calcaneal fusion with persistent joint space at the talonavicular joint. Two anterior screws are also present at the talonavicular region. There are prominent hypertrophic changes of the lateral and distal aspect of the tibia. Long screws are present from the distal aspect of the 1st metatarsal to the talus. Periarticular calcification is present dorsal to the expected region of the navicular which is been removed. There is fracture of the screw heads at the anterior aspect and distal aspect of the tibiotalar bone plate as before. These 2 screws project into the talus. A long screws present from the distal aspect of the 4th metatarsal into the cuboid. IMPRESSION: Postsurgical changes as described above of the ankle and foot overall not significantly changed. Dictated by: Kofi Suarez MD 12/29/2020 13:01 Kofi Suarez MD in [place] 12/29/2020 13:01
== END ==
PROVIDERS: PCP Pediatrics; Visit Provider Podiatrist
DX: E11.610 Type 2 diabetes mellitus with diabetic neuropathic arthropathy (principal); M25.572 Pain in left ankle and joints of left foot; Z79.84 Long term (current) use of oral hypoglycemic drugs
CPT/HCPCS: 73610; 73630

== ENCOUNTER → 2021-01-12 10:02 | Outpatient (POV) | payer BC, SELFPAY ==
[2021-01-12 10:11] VITALS: BP 150/86; PULSE 84; RESP 18; O2SAT 100; BMI 39.9
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
== END ==
PROVIDERS: PCP Pediatrics; Visit Provider Clinical Nurse Specialist Family Health
DX: M51.16 Intervertebral disc disorders with radiculopathy, lumbar region (principal); M79.672 Pain in left foot; M79.671 Pain in right foot; G62.9 Polyneuropathy, unspecified
CPT/HCPCS: 99212; G0463

== ENCOUNTER 2021-01-15 13:47 | Emergency (ER) | payer BC, SELFPAY ==
--- NOTE | 2021-01-15 14:40 | XR_ITS ---
PROCEDURE INFORMATION: Exam: XR Right Foot Exam date and time: 01/15/2021 2:40 PM Age: 55 years old Clinical indication: Injury or trauma; Fall; Blunt trauma; Injury details: Patient fell off of steps this morning, right foot pain. TECHNIQUE: Imaging protocol: XR Right foot. Views: 3 or more views. COMPARISON: CR XR FOOT WT BEARING RT 3V 06/30/2020 11:15 AM FINDINGS: Bones/joints: Mildly displaced fracture proximal aspect proximal phalanx 5th ray. Soft tissues: Normal. IMPRESSION: Mildly displaced fracture proximal aspect proximal phalanx 5th ray. Age indeterminate. Correlate. Suggestion of a a periosteal response about the fracture site.
--- NOTE | 2021-01-15 14:40 | XR_ITS ---
PROCEDURE INFORMATION: Exam: XR Right Ankle Exam date and time: 01/15/2021 2:40 PM Age: 55 years old Clinical indication: Injury or trauma; Fall; Blunt trauma; Injury details: Patient fell off of steps this morning, right ankle pain. TECHNIQUE: Imaging protocol: XR Right ankle. Views: 3 or more views. COMPARISON: CR XR ANKLE WT BEARING RT MIN 3V 10/07/2019 11:11 AM FINDINGS: Bones/joints: Medial and lateral malleoli are normal. Ankle mortise is symmetrical. No fracture. Hind foot is unremarkable. Tibiotalar joint and the subtalar joint appears normal. Tiny ossific density of approximately 2 mm x 1 mm adjacent to the distal aspect of the fibula likely a small avulsion fragment. Soft tissue swelling. Soft tissues: See Bones/joints finding. IMPRESSION: Tiny ossific density of approximately 2 mm x 1 mm adjacent to the distal aspect of the fibula likely a small avulsion fragment. Soft tissue swelling.
--- NOTE | 2021-01-15 14:40 | XR_ITS ---
PROCEDURE INFORMATION: Exam: XR Right Hip Exam date and time: 01/15/2021 2:40 PM Age: 55 years old Clinical indication: Injury or trauma; Fall; Blunt trauma (contusions or hematomas); Patient HX: Patient fell off of steps this morning, right hip pain. TECHNIQUE: Imaging protocol: XR Right hip. Views: 2 or 3 views hip with pelvis when performed. COMPARISON: MR LUMBAR SPINE WO CON 10/19/2020 3:29 PM FINDINGS: Bones/joints: osseous structures of the pelvis are without an acute process. rami are intact. Sacroiliac joints without separation/diastases/fracture. Iliac bones are normal. Mild degenerative changes within the hip including mild joint space narrowing and early osteophyte formation. No fracture. The trabecular stress markings normal. Soft tissues: See Bones/joints finding. IMPRESSION: Mild degenerative changes within the right hip.
[2021-01-15 15:10] VITALS: BP 134/77; PULSE 81; RESP 20; TEMP 36.9; O2SAT 98; BMI 39.9
[2021-01-15 16:10] VITALS: BP 134/77; PULSE 81; RESP 20; TEMP 36.9; O2SAT 98
--- NOTE | 2021-01-15 16:22 | HMH.EDUTC ---
[facility] [place] Disposition Clinical Impression: Hip pain, right Fracture of fifth toe, right, closed Qualifiers: Encounter type: initial encounter Qualified Code(s): S92.501A - Displaced unspecified fracture of right lesser toe(s), initial encounter for closed fracture Ankle sprain Qualifiers: Encounter type: initial encounter Involved ligament of ankle: unspecified ligament Laterality: right Qualified Code(s): S93.401A - Sprain of unspecified ligament of right ankle, initial encounter Disposition: Home, Self-Care Condition on Discharge: Good Instructions: Toe Fracture, DI for Toe Fracture, DI for Hip Pain Additional Instructions: Rest the extremity, apply ice for 15 minutes as tolerated three or four times per day, Wear the panda wrap for compression, Elevate the extremity as tolerated while you are resting. Take ibuprofen for pain. I sent in a prescription to your pharmacy. Follow up with Dr. Bee. Please call her and let her know what is going on with you in the morning. Follow up with your regular doctor. GO TO THE ER FOR ANY WORSENING SYMPTOMS Prescriptions: Ibuprofen [Ibuprofen 600mg Tablet] 600 mg PO Q6HP PRN #30 tab PRN Reason: Mild Pain Transmission Status: Received by [employer] #[id number] Referrals: Juan Tabares [Primary Care Provider] - Aure Bee DPM [Staff Physician] - Time of Disposition: 16:53 Medical Decision Making - Medical Records Medical records reviewed: No: I reviewed the patient's medical records. - Panchito Inquiry Pt receiving controlled substance: No Vital Signs: 01/15/21 15:10 01/15/21 16:10 Temperature 98.5 F 98.5 F Temperature Source Oral Pulse Rate 81 Pulse Rate [Right Brachial] 81 Respiratory Rate 20 20 Blood Pressure 134/77 Blood Pressure [Right Arm] 134/77 Blood Pressure Mean [Right Arm] 96 Blood Pressure Source [Right Arm] Automatic Cuff Blood Pressure Position [Right Arm] Sitting 02 Sat by Pulse Oximetry 98 Oxygen Delivery Method Room Air - Radiology Data #1 Image(s): Foot/Toes Image Reviewed: Yes I reviewed the patient's radiology image, Yes I have reviewed radiologist's interpretation Preliminary Findings: Abnormal PROCEDURE INFORMATION: Exam: XR Right Foot Exam date and time: 01/15/2021 2:40 PM Age: 55 years old Clinical indication: Injury or trauma; Fall; Blunt trauma; Injury details: Patient fell off of steps this morning, right foot pain. TECHNIQUE: Imaging protocol: XR Right foot. Views: 3 or more views. COMPARISON: CR XR FOOT WT BEARING RT 3V 06/30/2020 11:15 AM FINDINGS: Bones/joints: Mildly displaced fracture proximal aspect proximal phalanx 5th ray. Soft tissues: Normal. IMPRESSION: Mildly displaced fracture proximal aspect proximal phalanx 5th ray. Age indeterminate. Correlate. Suggestion of a a periosteal response about the fracture site. #2 Image(s): Ankle Image Reviewed: Yes I reviewed the patient's radiology image, Yes I have reviewed radiologist's interpretation Preliminary Findings: Abnormal PROCEDURE INFORMATION: Exam: XR Right Ankle Exam date and time: 01/15/2021 2:40 PM Age: 55 years old Clinical indication: Injury or trauma; Fall; Blunt trauma; Injury details: Patient fell off of steps this morning, right ankle pain. TECHNIQUE: Imaging protocol: XR Right ankle. Views: 3 or more views. COMPARISON: CR XR ANKLE WT BEARING RT MIN 3V 10/07/2019 11:11 AM FINDINGS: Bones/joints: Medial and lateral malleoli are normal. Ankle mortise is symmetrical. No fracture. Hind foot is unremarkable. Tibiotalar joint and the subtalar joint appears normal. Tiny ossific density of approximately 2 mm x 1 mm adjacent to the distal aspect of the fibula likely a small avulsion fragment. Soft tissue swelling. Soft tissues: See Bones/joints finding. IMPRESSION: Tiny ossific density of approximately
== END 2021-01-15 17:24 | disposition home or self-care (01) ==
PROVIDERS: Emergency Provider Nurse Practitioner Family; PCP Pediatrics
DX: S92.501A Displaced unspecified fracture of right lesser toe(s), initial encounter for closed fracture (principal); S93.401A Sprain of unspecified ligament of right ankle, initial encounter; W10.9XXA Fall (on) (from) unspecified stairs and steps, initial encounter; Y92.019 Unspecified place in single-family (private) house as the place of occurrence of the external cause; F41.8 Other specified anxiety disorders; I25.10 Atherosclerotic heart disease of native coronary artery without angina pectoris; K21.9 Gastro-esophageal reflux disease without esophagitis; E11.9 Type 2 diabetes mellitus without complications; Z87.891 Personal history of nicotine dependence; Z88.5 Allergy status to narcotic agent; Z88.8 Allergy status to other drugs, medicaments and biological substances
CPT/HCPCS: 73502; 73610; 73630; 99202; G0463

== ENCOUNTER → 2021-02-09 08:16 | Outpatient (CLI) | payer BC, SELFPAY ==
--- NOTE | 2021-02-09 08:23 | XR_ITS ---
PROCEDURE: XR ANKLE WT BEARING RT MIN 3V CLINICAL INDICATION: Fracture eval COMPARISON: CR XR ANKLE WT BEARING LT MIN 3V from 06/30/2020 CR XR ANKLE WT BEARING LT MIN 3V from 08/04/2020 CR XR ANKLE WT BEARING LT MIN 3V from 12/29/2020 CR XR ANKLE RT MIN 3V from 01/15/2021 FINDINGS: Bones: The faint calcification at the tip the distal fibula is not identified on today's exam and may have been due to an artifact from the overlying talus. There is some mild soft tissue swelling laterally. Joints: The joint spaces are well-preserved. No significant degenerative/arthritic changes. No erosive changes evident. Other findings:There is faint vascular calcification. IMPRESSION: No definite acute fracture of the ankle Dictated by: Kofi Suarez MD 02/09/2021 14:50 Kofi Suarez MD in [place] 02/09/2021 14:50
--- NOTE | 2021-02-09 08:23 | XR_ITS ---
PROCEDURE: XR FOOT WT BEARING RT 3V CLINICAL INDICATION: toe pain COMPARISON: CR XR FOOT WT BEARING LT 3V from 06/30/2020 CR XR FOOT WT BEARING LT 3V from 08/04/2020 CR XR FOOT WT BEARING LT 3V from 12/29/2020 CR XR FOOT RT MIN 3V from 01/15/2021 FINDINGS: A nondisplaced fracture involves the 5th proximal phalanx. Callus formation is developing at the fracture site. Overall not significantly changed. The joint spaces are well-preserved. No significant degenerative/arthritic changes. No erosive changes evident. Other findings:There is a subcutaneous foreign body along the plantar surface of the foot at the distal aspect of the 1st metatarsal not significantly changed. IMPRESSION: Overall no change in the healing fracture of the 5th proximal phalanx. No change plantar subcutaneous foreign body at the head of the 1st metatarsal. Dictated by: Kofi Suarez MD 02/09/2021 14:47 Kofi Suarez MD in [place] 02/09/2021 14:47
== END ==
LOC: RAD 08:18
PROVIDERS: PCP Pediatrics; Visit Provider Podiatrist
DX: M25.571 Pain in right ankle and joints of right foot (principal); M79.671 Pain in right foot
CPT/HCPCS: 73610; 73630

== ENCOUNTER → 2021-02-24 10:56 | Outpatient (CLI) | payer BC, SELFPAY ==
[2021-02-24 11:19] LABS: Basophils % 0.6 % (0.1-2.0); Eosinophils # 0.5 K/mm3 (0.0-0.4); Eosinophils % 7.6 % (0.1-12.0); Hematocrit 38.3 % (37.0-47.0); Hemoglobin 12.1 g/dL (12.2-16.2); Lymphocytes % 46.2 % (10-50); Mean Corpuscular HGB Conc 31.5 g/dL (31.8-35.4); Mean Corpuscular Hemoglobin 29.7 pg (27.0-31.2); Mean Corpuscular Volume 94.4 fl (81-99); Mean Platelet Volume 9.5 fl (7.4-10.4); Monocytes # 0.3 K/mm3 (0.1-1.0); Monocytes % 5.1 % (1.7-9.3); Neutrophils # 2.6 K/mm3 (1.8-7.8); Neutrophils % 40.5 % (37.0-80.0); Platelet Count 237 K/mm3 (142-424); Red Blood Count 4.06 M/mm3 (4.20-5.40); Red Cell Distribution Width 15.7 % (11.5-17.5); White Blood Count 6.4 K/mm3 (4.8-10.8)
[2021-02-24 11:25] LABS: Chloride 101 mmol/L (98-107); Potassium 4.6 mmoL/L (3.5-5.1); Sodium 138 mmol/L (136-145)
[2021-02-24 11:28] LABS: Alanine Aminotransferase 13 U/L (12-78); Albumin Level 3.7 g/dl (3.5-5.0); Albumin/Globulin Ratio 1.2 (1.1-1.8); Alkaline Phosphatase 98 U/L (38-126); Anion Gap 13.6 mEq/L (5-15); Aspartate Amino Transferase 25 U/L (14-36); Bilirubin,Total 0.2 mg/dl (0.2-1.3); Blood Urea Nitrogen 13 mg/dl (7-17); Carbon Dioxide 28 mmol/L (22.0-30.0); Estimated Glomerular Filt Rate 58 ml/min (>60); GFR (African American) 70 ML/MIN (>60); Globulin 3.1 g/dL (1.3-3.2); Total Protein,Serum 6.8 g/dl (6.3-8.2)
[2021-02-24 11:29] LABS: Calcium 8.6 mg/dl (8.4-10.2); Glucose 199 mg/dl (74-100)
[2021-02-24 11:34] LABS: C-Reactive Protein 11.7 mg/L (0-4)
[2021-02-24 12:03] LABS: Erythrocyte Sedimentation Rate 86 mm/hr (0-30)
--- NOTE | 2021-02-24 12:30 | MR_ITS ---
PROCEDURE INFORMATION: Exam: MR Right Lower Extremity Joint Without and With Contrast; Ankle Exam date and time: 02/24/2021 12:30 PM Age: 55 years old Clinical indication: Pain; Ankle; Right; Additional info: Right ankle instability, peroneal tendinitis. PT fell x4wks ago. FX in foot. Lateral sided ankle pain. 20ml prohance given. Lot: [id number] exp: Jun 2023 bun: 13 cre: 1.0 gfr: 58 prior x-ray 02-09-21 TECHNIQUE: Imaging protocol: MR of the Right lower extremity without and with contrast. Exam focused on the ankle. Contrast material: PROHANCE; Contrast volume: 20 ml; Contrast route: IV; COMPARISON: 1. CR XR ANKLE WT BEARING RT MIN 3V 02/09/2021 8:24 AM 2. CR XR FOOT RT MIN 3V 01/15/2021 2:49:17 PM FINDINGS: Bones and cartilage: Edema is identified within the bone marrow of the proximal 5th phalanx, consistent with the fracture visualized of this bone on prior radiographs. Mild patchy marrow edema contusion involving the talus. Minimal equivocal marrow edema is seen within the cuboid bone. No dislocation of the ankle. Joint spaces: Moderate tibiotalar and subtalar joint effusions, with synovial enhancement/synovitis. LIGAMENTS: Distal tibiofibular syndesmosis: See below. Anterior talofibular ligament: Edema surrounds the anterior talofibular ligament, with a tear which is at least partial in degree. Posterior talofibular ligament: No tear. Calcaneofibular ligament: Edema is visualized adjacent to the anterior tibiofibular ligament and calcaneofibular ligament, consistent with ligament sprain or extension of adjacent soft tissue swelling. Deltoid ligament complex: Increased signal intensity is identified involving the deltoid ligament. Partial tear cannot be excluded. TENDONS: Flexor tendons of foot: Minimal fluid adjacent to the flexor digitorum tendon. Tenosynovitis cannot be excluded. Tibialis posterior tendon: Mild tenosynovitis of the posterior tibialis tendon. Peroneal tendons: Tenosynovitis of the peroneal tendons. Extensor tendons of foot: Unremarkable as visualized. Tibialis anterior tendon: Unremarkable as visualized. Achilles tendon: Unremarkable as visualized. Tarsal canal (Sinus tarsi): Mild edema. Muscles: See Soft tissues finding. Soft tissues: Soft tissue swelling surrounds the ankle, with additional swelling involving the foot. Patchy muscle edema. Muscle strain, myositis and myopathy are within the differential. Plantar fascia: Mild enhancement adjacent to the proximal plantar fascia, consistent with mild plantar fasciitis. IMPRESSION: 1. Soft tissue swelling surrounds the ankle, with additional swelling involving the foot. 2. Anterior talofibular ligament tear. 3. Tenosynovitis of the peroneal tendons. Mild tenosynovitis of the posterior tibialis tendon. 4. Edema is visualized adjacent to the anterior tibiofibular ligament and calcaneofibular ligament, consistent with ligament sprain or extension of adjacent soft tissue swelling. 5. Increased signal intensity is identified involving the deltoid ligament. Partial tear cannot be excluded. 6. Mild patchy marrow edema contusion involving the talus. 7. Patchy muscle edema. Muscle strain, myositis and myopathy are within the differential. 8. Moderate tibiotalar and subtalar joint effusions, with synovial enhancement/synovitis. 9. Edema is identified within the bone marrow of the proximal 5th phalanx, consistent with the fracture visualized of this bone on prior radiographs. 10. Mild enhancement adjacent to the proximal plantar fascia, consistent with mild plantar fasciitis. 11. Additional findings described above. Electronically signed by Gabby Draper
== END ==
PROVIDERS: PCP Pediatrics; Visit Provider Podiatrist
DX: M25.571 Pain in right ankle and joints of right foot (principal); M25.371 Other instability, right ankle; M76.71 Peroneal tendinitis, right leg; Z51.89 Encounter for other specified aftercare
CPT/HCPCS: 36415; 73723; 80053; 85025; 85651; 86140; A9576

== ENCOUNTER 2021-04-11 17:00 | Outpatient (RCR) | payer BC, SELFPAY ==
--- NOTE | 2021-03-09 10:36 | HMH.PTOPEV ---
PT Outpatient Evaluation Rehab PT Outpatient Evaluation Start: 03/09/21 10:18 Freq: Status: Active Protocol: Document 03/09/21 10:20 OREN (Rec: 03/09/21 10:36 OREN [id number]) Electronically Signed By Reuben Orellana, PT 03/09/21 10:20 Outpatient Therapy Subjective History Subjective History Patient is a 55 year old female presenting to outpatient PT with reports of R foot/ankle pain starting approximately 6 weeks ago after a fall at home. She recently had a MRI indicating torn ATFL and peroneal tendonitis. Patient has previously underwent multiple surgeries for L charcot foot reconstruction. Other comorbidities include hx of HL , HTN, diabetes and asthma. Chief Complaint Pain,Stiff,Swelling Symptom Type Ache,Sharp Symptoms Relieved By Rest/Positioning,Ice,OTC Meds Symptoms Aggravated By Standing,Physical Activity, Walking Prior Functional Limitations Standing,Walking Current Functional Limitations Housework,Standing,Squatting, Walking,Stairs,Balance Symptom Description Constant but Variable Level of pain today (0-10) 2 Pain scale - at its best (0-10) 2 Pain scale - at its worst (0-10) 6 Ankle/Foot Eval Gait Observation General Gait Pattern Observation Antalgic Gait,Wide Based Gait, Decrease Weight Bear (R) Assistive Device Ambulation Assistive Device Straight Cane,Rolling Walker Palpation Tenderness right Ankle/Foot Palpation Overall Comment ATFL and peroneal tendom mm 3/ 4 ATF TTP positive ROM Ankle/Foot Dorsiflexion w/Knee Extended -15 Active Range Motion (degrees) Ankle/Foot Plantar Flexion Active Range WFL of Motion (degrees) Ankle/Foot Eversion Active Range of 20 Motion (degrees) Ankle/Foot Inversion Active Range of 30 Motion (degrees) Great Toe ROM Reason Not Measured Within Functional Limits Accessory Movements Ankle Accessory Movements that Elicit Talus Dorsal Oreland Symptoms MMT right Ankle Dorsiflexion Strength Grade 4 Good Ankle Plantarflexion Strength Grade 4 Good Foot Eversion Strength Grade 4- Good- Foot Inversion Strength Grade 4- Good- Special Tests Ankle Anterior Drawer Test Positive Right Talar Tilt Test Negative Right Foot Interdigital Neuroma Test Nega
== END 2021-04-11 17:05 | disposition home or self-care (01) ==
LOC: PT 17:00
PROVIDERS: PCP Pediatrics; Visit Provider Podiatrist
DX: M76.71 Peroneal tendinitis, right leg (principal); M25.571 Pain in right ankle and joints of right foot; M25.371 Other instability, right ankle
CPT/HCPCS: 97014; 97110; 97140; 97163; 97530; G0283

== ENCOUNTER → 2021-05-18 10:34 | Outpatient (CLI) | payer BC, SELFPAY ==
[2021-05-18 12:00] LABS: Chloride 100 mmol/L (98-107)
[2021-05-18 12:01] LABS: Potassium 4.8 mmoL/L (3.5-5.1); Sodium 136 mmol/L (136-145)
[2021-05-18 12:03] LABS: Blood Urea Nitrogen 24 mg/dl (7-17); Estimated Glomerular Filt Rate 43 ml/min (>60); GFR (African American) 52 ML/MIN (>60)
[2021-05-18 12:04] LABS: Anion Gap 9.8 mEq/L (5-15); Calcium 9.1 mg/dl (8.4-10.2); Carbon Dioxide 31 mmol/L (22.0-30.0); Glucose 122 mg/dl (74-100)
== END ==
PROVIDERS: PCP Pediatrics; Visit Provider Nurse Practitioner Family
DX: R94.30 Abnormal result of cardiovascular function study, unspecified (principal)
CPT/HCPCS: 36415; 80048

== ENCOUNTER 2021-05-31 16:51 | Emergency (ER) | payer BC, SELFPAY ==
--- NOTE | 2021-05-31 17:01 | XR_ITS ---
PROCEDURE INFORMATION: Exam: XR Left Foot Exam date and time: 05/31/2021 5:01 PM Age: 55 years old Clinical indication: Pain and injury or trauma; Fall; Blunt trauma; Foot; Left; Injury date: 05/31/2021; Prior surgery; Surgery date: 6+ months; Surgery type: Orif; Additional info: Fall/pain TECHNIQUE: Imaging protocol: XR Left foot. Views: 3 or more views. COMPARISON: CR XR FOOT WT BEARING LT 3V 12/29/2020 10:22 AM FINDINGS: Tubes, catheters and devices: Postoperative changes are present with pins and plates in place. Bones/joints: There is no evidence of acute fracture. Soft tissues: Normal. Other findings: No significant changes from the prior study. IMPRESSION: 1. Postoperative changes are present with pins and plates in place. 2. No evidence of acute fracture. 3. No significant changes from the prior study.
[2021-05-31 17:03] VITALS: BP 161/76; PULSE 85; RESP 16; TEMP 36.6; O2SAT 98; BMI 88.0
--- NOTE | 2021-05-31 17:08 | HMH.EDGENADL ---
ED Disposition Clinical Impression: Contusion of left foot Qualifiers: Encounter type: initial encounter Qualified Code(s): S90.32XA - Contusion of left foot, initial encounter Disposition: Home, Self-Care Condition on Discharge: Good Instructions: Contusion Additional Instructions: follow up podiatry Referrals: Juan Tabares [Primary Care Provider] - - Critical Care Critical Care Time: No Attestation: On , the high probability of a clinically significant, sudden or life threatening deterioration of the following system(s) required my full and direct attention, intervention and personal management. The time I documented below is in addition to time spent performing reported procedures but includes the following listed in this critical care notation. Medical Decision Making - Medical Records Medical records reviewed: Yes: I reviewed the patient's medical records. - Panchito Inquiry Pt receiving controlled substance: No Vital Signs: 05/31/21 17:03 Temperature 97.8 F Temperature Source Oral Pulse Rate [Right Radial] 85 Respiratory Rate 16 Blood Pressure [Right Arm] 161/76 H Blood Pressure Mean [Right Arm] 104 Blood Pressure Source [Right Arm] Automatic Cuff Blood Pressure Position [Right Arm] Sitting 02 Sat by Pulse Oximetry 98 Oxygen Delivery Method Room Air General Adult HPI - General Stated complaint: left foot toes are black; dr. garvin referred Time Seen by Provider: 05/31/21 17:09 - History of Present Illness HPI narrative: left foot pain after fall on steps tripped yesterday Onset (ago): day(s) Location: lower extremity Radiation: non-radiation Severity: mild Consistency: constant Relieving factors: none Exacerbating factors: movement Associated symptoms: denies other symptoms - Related Data Home Medications Medication Instructions Recorded Confirmed albuterol sulfate 90 mcg/actuation 1 puff INHALATION DAILY PRN 17 06/04/17 05/04/21 aerosol inhaler Days #18 amitriptyline 25 mg tablet 25 mg PO HS 30 Days #30 06/04/17 05/04/21 estradiol 2 mg tablet 2 mg PO DAILY 30 Days #30 06/04/17 05/04/21 montelukast 10 mg tablet 10 mg PO DAILY 30 Days #30 06/04/17 05/04/21 pregabalin 150 mg capsule 150 mg PO TID #90 cap 01/08/19 05/04/21 dulaglutide 1.5 mg/0.5 mL 1.5 mg SQ WEEKLY 28 Days #2 ml 06/11/19 05/04/21 subcutaneous pen injector escitalopram oxalate 20 mg tablet 20 mg PO DAILY tab 11/12/19 05/04/21 sitagliptin 100 mg tablet 100 mg PO DAILY tab 11/12/19 05/04/21 Aspirin [Aspirin 81mg EC Tab] 81 mg PO DAILY 03/02/20 05/04/21 ibuprofen 800 mg tablet 800 mg PO NEEDED PRN tab 04/28/20 05/04/21 pantoprazole 40 mg tablet,delayed 40 mg PO DAILY tab 04/28/20 05/04/21 release fluticasone propionate 50 50 mcg INTRANASAL NEEDED PRN 09/22/20 05/04/21 mcg/actuation nasal spray,suspension insulin NPH-regular 70-30 U-100 60 unit SQ BID ml 09/22/20 05/04/21 insulin 100 unit/mL subcutaneous pen metformin 500 mg tablet,extended 500 mg PO BID tab 09/22/20 05/04/21 release 24 hr metoprolol succinate 50 mg 50 mg PO DAILY tab 09/22/20 05/04/21 tablet,extended release 24 hr lisinopril 5 mg tablet 5 mg PO tab 04/11/21 05/04/21 simvastatin 40 mg tablet 40 mg PO tab 04/11/21 05/04/21 spironolactone 25 mg tablet 25 mg PO tab 04/11/21 05/04/21 Previous Rx's Medication Instructions Recorded cyclobenzaprine 5 mg tablet 5 mg PO TID PRN 30 Days #30 tab 01/28/20 ondansetron 4 mg disintegrating 4 mg PO Q6H PRN #30 tab 10/26/20 tablet furosemide 40 mg tablet 40 mg PO DAILY #30 tab 05/04/21 Allergies Allergy/AdvReac Type Severity Reaction Status Date / Time ranitidine [RANITIDINE] Allergy Severe Anaphylaxis Verified 05/04/21 13:43 adhesive tape [ADHESIVE TAPE] Allergy Intermediate I-RASH Verified 05/04/21 13:43 bupropion [BUPROPION] Allergy Intermediate I-HIVES Verified 05/04/21 13:43 butorphanol [BUTORPHANOL] Allergy Intermediate I-HIVES Verified 05/04/21 13:43 ca
[2021-05-31 18:05] VITALS: BP 165/81; PULSE 76; RESP 18; TEMP 36.6; O2SAT 98
== END 2021-05-31 18:05 | disposition home or self-care (01) ==
PROVIDERS: Emergency Provider Emergency Medicine; PCP Pediatrics
DX: S90.32XA Contusion of left foot, initial encounter (principal); E11.9 Type 2 diabetes mellitus without complications; Z79.4 Long term (current) use of insulin; I25.10 Atherosclerotic heart disease of native coronary artery without angina pectoris; I10 Essential (primary) hypertension; Z79.899 Other long term (current) drug therapy; W10.8XXA Fall (on) (from) other stairs and steps, initial encounter; Z88.8 Allergy status to other drugs, medicaments and biological substances
CPT/HCPCS: 73630; 99282

== ENCOUNTER → 2021-06-02 11:50 | Outpatient (CLI) | payer BC, SELFPAY | LOC: RT 11:52 | PROVIDERS: PCP Pediatrics; Visit Provider Urology | DX: R42 Dizziness and giddiness (principal) | CPT/HCPCS: 93225 ==

== ENCOUNTER → 2021-06-22 10:13 | Outpatient (CLI) | payer BC, SELFPAY ==
--- NOTE | 2021-06-22 10:17 | XR_ITS ---
FINAL REPORT CLINICAL HISTORY: fracture follow up COMPARISON: 05/31/2021 FINDINGS: LEFT FOOT Three views demonstrate postoperative changes of the ankle and foot. The hardware is visually stable. There are moderate to severe degenerative changes. There are fractures of the distal second, third, and fourth proximal phalanges. The appearance is subacute and stable. IMPRESSION: Subacute fractures of the distal second, third, and fourth proximal phalanges. Postoperative changes as detailed above. Reviewed, Interpreted and Dictated by Lai Pressley III, MD Transcribed by Loly Aguirre Authenticated by Lai Pressley III, MD on 06/22/2021 10:51:03 AM [facility]
== END ==
LOC: RAD 10:15
PROVIDERS: PCP Pediatrics; Visit Provider Podiatrist
DX: S92.505A Nondisplaced unspecified fracture of left lesser toe(s), initial encounter for closed fracture (principal); S92.50 Unspecified fracture of lesser toe(s)
CPT/HCPCS: 73630

== ENCOUNTER → 2021-08-30 17:34 | Outpatient (CLI) | payer BC, SELFPAY | PROVIDERS: PCP Pediatrics; Visit Provider Specialist | DX: G47.33 Obstructive sleep apnea (adult) (pediatric) (principal) | CPT/HCPCS: G0399 ==

== ENCOUNTER → 2021-08-31 10:23 | Outpatient (CLI) | payer BC, SELFPAY ==
--- NOTE | 2021-08-31 10:25 | MM_ITS ---
PROCEDURE INFORMATION: Exam: MG Bilateral Screening 3D Mammography Exam date and time: 08/31/2021 10:46 AM Age: 55 years old Clinical indication: Screening mammogram TECHNIQUE: Imaging protocol: Bilateral Screening tomosynthesis and 2D mammography including computer-aided detection (CAD) when performed. COMPARISON: 1. MG DXLT MM Dig mamm DX unilat LT CAD 06/11/2017 2:37 PM 2. MG SCBI MM Dig screening mamm BI w/CAD 06/04/2017 10:53 AM 3. MG DMDXUAVR DIG MAMM-DX UNI ADD VIEWS-RT 09/06/2015 1:20 PM 4. MG DMDXUR DIG MAMM-DX UNI-RT 02/28/2015 1:35 PM FINDINGS: MAMMOGRAPHY: Breast composition: There are scattered areas of fibroglandular density. Mass: None. Architectural distortion: No new or suspicious architectural distortion. Calcifications: Stable benign-appearing calcifications are present. No new or suspicious cluster of microcalcifications have developed. Asymmetric density: No new or suspicious asymmetric density is present Skin thickening: None. Axillary adenopathy: None. IMPRESSION: No mammographic evidence of malignancy. Recommend annual screening mammography unless otherwise clinically indicated. ASSESSMENT: BI-RADS category 2: Benign
== END ==
PROVIDERS: PCP Pediatrics; Visit Provider Pediatrics
DX: Z12.31 Encounter for screening mammogram for malignant neoplasm of breast (principal)
CPT/HCPCS: 77063; 77067

== ENCOUNTER → 2021-09-14 10:45 | Outpatient (CLI) | payer BC, SELFPAY ==
--- NOTE | 2021-09-14 10:49 | XR_ITS ---
FINAL REPORT CLINICAL HISTORY: charcot evaluation COMPARISON: 06/22/2021 FINDINGS: LEFT FOOT Three views were obtained. Postoperative changes of the ankle and foot. The hardware is unchanged as compared to prior. The lucency surrounding the screw within the 1st metatarsal appear stable. The appearance of the talotibial joint has not significantly changed. Increased density in the talus is stable. No acute osseous abnormality is identified. IMPRESSION: Postsurgical changes with stable appearance of the foot and ankle. Reviewed, Interpreted and Dictated by Laurence Barnes MD Transcribed by Loly Aguirre Authenticated by Laurence Barnes MD on 09/14/2021 01:18:36 PM [facility]
--- NOTE | 2021-09-14 12:48 | XR_ITS ---
FINAL REPORT CLINICAL HISTORY: pain COMPARISON: February 09, 2021 FINDINGS: AP, oblique and lateral weight-bearing views of the right foot were obtained. There has been interval healing of the fracture of the base of the 5th proximal phalanx. There is no acute osseous abnormality. The joint spaces are preserved. The previously identified foreign body is no longer seen. IMPRESSION: No acute osseous abnormality of the right foot. Interval healing of the fracture at the base of the fifth proximal phalanx. Reviewed, Interpreted and Dictated by Laurence Barnes MD Transcribed by Jose Luis Acuna Authenticated by Laurence Barnes MD on 09/14/2021 02:54:55 PM [facility]
== END ==
PROVIDERS: PCP Pediatrics; Visit Provider Podiatrist
DX: M14.672 Charcot's joint, left ankle and foot (principal); E11.8 Type 2 diabetes mellitus with unspecified complications; Z79.4 Long term (current) use of insulin
CPT/HCPCS: 73630

== ENCOUNTER → 2021-11-23 07:08 | Outpatient (CLI) | payer BC, SELFPAY ==
--- NOTE | 2021-11-23 07:09 | MR_ITS ---
FINAL REPORT CLINICAL HISTORY: Headaches, dizziness, BLURRED VISION FOR 1 YEAR. NO INJURY OR TRAUMA. FINDINGS: Multiplanar MR imaging of the brain was performed without contrast. There are scattered foci of increased T2 signal in the cerebral white matter that have a nonspecific appearance but likely represent mild chronic ischemic/gliotic changes. There is no evidence of intracranial hemorrhage or mass. No abnormal ventricular dilatation is identified. No abnormal extra-axial fluid collection is seen. No abnormality is seen on the diffusion weighted images. The posterior fossa and brainstem are unremarkable. Normal major vessel vascular flow voids are seen. There is mucosal thickening in the right maxillary sinus. IMPRESSION: Mild chronic ischemic/gliotic changes. No acute intracranial abnormality. Reviewed, Interpreted and Dictated by Lai Pressley III, MD Transcribed by Jose Luis Acuna Authenticated and [facility]
== END ==
LOC: RAD 07:09
PROVIDERS: PCP Pediatrics; Visit Provider Specialist
DX: R51.9 Headache, unspecified (principal); R42 Dizziness and giddiness; G89.29 Other chronic pain
CPT/HCPCS: 70551

== ENCOUNTER → 2021-12-07 12:48 | Day surgery (SDC) | payer BC, SELFPAY ==
[2021-12-07 13:23] VITALS: BMI 38.2
[2021-12-07 13:42] VITALS: BP 150/77; PULSE 76; RESP 17; TEMP 36.2; O2SAT 100
[2021-12-07 14:52] LABS: POC Glucose,Bedside 267 (70-110)
--- NOTE | 2021-12-07 15:05 | HMH.TILT ---
Findings:: PROCEDURE: Upright tilt table test REQUESTING PHYSICIAN: Susie Browne MD INDICATION: Recurrent episodes of dizziness, lightheadedness, near syncope, syncope BETA BLOCKERS: None for past 48 hours PRE-TEST VITAL SIGNS (supine): BP 154/77, HR 75 and normal sinus rhythm, O2sats 98% PROCEDURE SUMMARY: Patient was prepped per protocol, IV started, connected to heart, blood pressure and sat monitors. Safety straps applied. She was then tilted at 70 degrees for a total of 15 minutes. The test was terminated early due to the patient becoming nauseated followed by dizziness, lightheadedness and near syncopal. Patient's symptoms corresponded with a precipitous drop in blood pressure. Immediately after being raised upright her SBP dropped 34 mmHg and diastolic dropped 17 mmHg. However, she did not experience any symptoms until she had been upright for 10 minutes and BP had fallen to 95/43 As previously noted, her pretest supine BP was 154/77. Upon being placed into the upright position, it dropped to 120/60. After 10 minutes upright her BP was down to 95/43. After 15 minutes upright, her BP was 93/33, at which time the test was terminated and she was returned to supine position. Two minutes after being returned to the supine position her BP was 150/86 and after 5 minutes was 151/75. Her symptoms subside within a few minutes of being returned to supine position. Her heart rate remained basically unchanged during the test with a low of 76 bpm and a high of 80 bpm. SHe remained in a normal sinus rhythm throughout. Oxygen saturation remained in the high 90s to 100% range throughout. CONCLUSIONS: Symptomatic, orthostatic hypotension which got worse the longer patient was upright.
== END ==
PROVIDERS: PCP Pediatrics; Visit Provider Specialist
DX: R42 Dizziness and giddiness (principal)
CPT/HCPCS: 82962

== ENCOUNTER → 2021-12-14 10:24 | Outpatient (CLI) | payer BC, SELFPAY ==
[2021-12-14 12:39] LABS: Vitamin B12 243 pg/mL (239-931)
[2021-12-21 02:09] LABS: 1,25 Dihydroxy Vitamin D 25 pg/mL (.); 1,25-Dihydroxy, Vitamin D-2 <10 pg/mL (.); 1,25-Dihydroxy, Vitamin D-3 18 pg/mL (.)
== END ==
PROVIDERS: PCP Pediatrics; Visit Provider Specialist
DX: R55 Syncope and collapse (principal); Z86.39 Personal history of other endocrine, nutritional and metabolic disease
CPT/HCPCS: 36415; 82607; 82652; 82746

== ENCOUNTER → 2022-01-25 09:28 | Outpatient (CLI) | payer BC, SELFPAY ==
--- NOTE | 2022-01-25 09:37 | XR_ITS ---
FINAL REPORT CLINICAL HISTORY: foot pain COMPARISON: September 14, 2021 FINDINGS: 3 views of the left foot were obtained. There is postoperative change involving the ankle and foot. There are multiple orthopedic screws. A plate is seen along the anterior distal tibia to the talus. There are chronic calcifications anterior to the distal aspect of the plate. The screw going through the 4th metatarsal and cuboid has a fracture of the proximal aspect of the threads. Bony alignment is normal. There is diffuse degenerative change. There has been interval further healing of the 2nd, 3rd, and 4th proximal phalangeal fractures. IMPRESSION: Extensive postoperative change with new fracture of a screw spanning the 4th metatarsal and cuboid. Reviewed, Interpreted and Dictated by Lai Pressley III, MD Transcribed by Jose Luis Acuna Authenticated and [facility]
--- NOTE | 2022-01-25 09:37 | XR_ITS ---
FINAL REPORT CLINICAL HISTORY: foot pain COMPARISON: September 14, 2021 FINDINGS: 3 views of the right foot were obtained. There is no acute fracture or dislocation. The joint spaces are intact. The soft tissues are unremarkable. IMPRESSION: No acute process. Reviewed, Interpreted and Dictated by Lai Pressley III, MD Transcribed by Jose Luis Acuna Authenticated and [facility]
== END ==
LOC: RAD 09:30
PROVIDERS: PCP Emergency Medicine; Visit Provider Podiatrist
DX: M79.671 Pain in right foot (principal); M79.672 Pain in left foot
CPT/HCPCS: 73630

== ENCOUNTER → 2022-02-20 12:43 | Outpatient (CLI) | payer BC, SELFPAY ==
[2022-02-20 14:17] LABS: Free T4 (Free Thyroxine) 0.86 ng/dl (0.78-2.19)
[2022-02-20 14:30] LABS: Thyroid Stimulating Hormone 3.45 uIU/mL (0.465-4.68)
[2022-02-20 15:14] LABS: Folate 9.87 ng/mL
[2022-02-22 08:16] LABS: Triiodothyronine (T3) Free 2.6 pg/mL (2.0-4.4)
[2022-02-25 23:07] LABS: Methylmalonic Acid 295 nmol/L (0-378)
== END ==
PROVIDERS: PCP Emergency Medicine; Visit Provider Specialist
DX: R42 Dizziness and giddiness (principal); R41.3 Other amnesia; R53.83 Other fatigue
CPT/HCPCS: 36415; 82131; 82746; 84439; 84443; 84481

== ENCOUNTER 2022-02-21 20:25 | Emergency (ER) | payer BC, SELFPAY ==
[2022-02-21 20:26] VITALS: BP 167/79; PULSE 84; RESP 18; TEMP 36.6; O2SAT 98; BMI 36.6
--- NOTE | 2022-02-21 21:53 | CT_ITS ---
PROCEDURE INFORMATION: Exam: CT Head Without Contrast Exam date and time: 02/21/2022 10:07 PM Age: 56 years old Clinical indication: Pain; Headache; Additional info: POTTS TECHNIQUE: Imaging protocol: Computed tomography of the head without contrast. Radiation optimization: All CT scans at this facility use at least one of these dose optimization techniques: automated exposure control; mA and/or kV adjustment per patient size (includes targeted exams where dose is matched to clinical indication); or iterative reconstruction. COMPARISON: MR HEAD/BRAIN WO CON 11/23/2021 7:34 AM FINDINGS: Brain: No hemorrhage. No mass effect. Cerebral ventricles: No ventriculomegaly. Paranasal sinuses: No fluid levels. Mastoid air cells: Visualized mastoid air cells are well aerated. Bones/joints: No acute fracture. Soft tissues: The visualized soft tissue is grossly unremarkable. IMPRESSION: No evidence of acute intracranial hemorrhage.
--- NOTE | 2022-02-21 22:12 | PC.NURSE ---
PT gone to RAD for CT
[2022-02-21 22:13] LABS: Basophils # 0.1 K/mm3 (0-0.2); Basophils % 0.9 % (0.1-2.0); Eosinophils # 0.5 K/mm3 (0.0-0.4); Eosinophils % 5.6 % (0.1-12.0); Hemoglobin 13.5 g/dL (12.2-16.2); Lymphocytes # 3.8 K/mm3 (0.7-4.5); Lymphocytes % 47.5 % (10-50); Mean Corpuscular HGB Conc 32.9 g/dL (31.8-35.4); Mean Corpuscular Hemoglobin 31.6 pg (27.0-31.2); Mean Corpuscular Volume 95.9 fl (81-99); Mean Platelet Volume 9.5 fl (7.4-10.4); Monocytes # 0.4 K/mm3 (0.1-1.0); Monocytes % 5.4 % (1.7-9.3); Neutrophils # 3.3 K/mm3 (1.8-7.8); Neutrophils % 40.5 % (37.0-80.0); Platelet Count 284 K/mm3 (142-424); Red Blood Count 4.27 M/mm3 (4.20-5.40); White Blood Count 8.1 K/mm3 (4.8-10.8)
[2022-02-21 22:23] LABS: Alanine Aminotransferase 24 U/L (12-78); Albumin Level 3.6 g/dl (3.5-5.0); Albumin/Globulin Ratio 1.1 (1.1-1.8); Alkaline Phosphatase 115 U/L (38-126); Anion Gap 19.3 mEq/L (5-15); Aspartate Amino Transferase 37 U/L (14-36); Blood Urea Nitrogen 19 mg/dl (7-17); Calcium 9.4 mg/dl (8.4-10.2); Carbon Dioxide 24 mmol/L (22.0-30.0); Chloride 98 mmol/L (98-107); Creatinine Clearance Estimated 91 mL/min (50-200); Estimated Glomerular Filt Rate 52 ml/min (>60); GFR (African American) 62 ML/MIN (>60); Globulin 3.2 g/dL (1.3-3.2); Glucose 303 mg/dl (74-100); Potassium 4.3 mmoL/L (3.5-5.1); Sodium 137 mmol/L (136-145); Total Protein,Serum 6.8 g/dl (6.3-8.2)
--- NOTE | 2022-02-21 22:24 | PC.NURSE ---
Pt back from RAD
[2022-02-21 22:29] LABS: Bilirubin,Total < 0.1 mg/dl (0.2-1.3)
[2022-02-21 22:31] VITALS: BP 168/83; PULSE 82; O2SAT 97
--- NOTE | 2022-02-21 22:47 | PC.NURSE ---
Rechecked pt condition. Cool wash rag provided.
[2022-02-21 23:00] VITALS: BP 158/62; PULSE 81; O2SAT 99
[2022-02-21 23:30] VITALS: BP 164/75; PULSE 84; O2SAT 100
--- NOTE | 2022-02-21 23:39 | HMH.EDHA ---
Discharge Plan Disposition Patient Disposition: Home, Self-Care Chief Complaint: Headache Prescriptions Prescriptions: No Action simvastatin 40 mg tablet 40 mg PO DAILY Label Comments: TAKE 1 TABLET BY MOUTH EVERY DAY lisinopril 5 mg tablet 5 mg PO DAILY spironolactone 25 mg tablet 25 mg PO DAILY Label Comments: TAKE 1 TABLET BY MOUTH EVERY DAY melatonin 10 mg capsule 10 mg PO HS PRN (Reason: Sleep) diphenhydramine-acetaminophen [Tylenol PM Extra Strength] 25-500 mg tablet 1 tab PO HS PRN (Reason: ithcing) buspirone 7.5 mg tablet 7.5 mg PO BID duloxetine [Cymbalta] 30 mg capsule,delayed release(DR/EC) 30 mg PO DAILY Qty: 90 0RF insulin glargine [Lantus Solostar U-100 Insulin] 100 unit/mL (3 mL) insulin pen 5 unit SQ HS Qty: 15 2RF estradiol 2 mg tablet 2 mg PO DAILY 30 Days Qty: 30 Label Comments: albuterol sulfate 90 mcg/actuation HFA aerosol inhaler 1 puff inhalation DAILY PRN (Reason: asthma) 17 Days Qty: 18 Label Comments: montelukast 10 mg tablet 10 mg PO DAILY 30 Days Qty: 30 Label Comments: dulaglutide 1.5 mg/0.5 mL pen injector 1.5 mg SQ WEEKLY 28 Days Qty: 2 Label Comments: escitalopram oxalate 20 mg tablet 20 mg PO DAILY Label Comments: TK 1 T PO QD sitagliptin phosphate 100 mg tablet 100 mg PO DAILY pantoprazole 40 mg tablet,delayed release (DR/EC) 40 mg PO DAILY ibuprofen 800 mg tablet 800 mg PO NEEDED PRN (Reason: pain) insulin NPH and regular human 100 unit/mL (70-30) insulin pen 60 unit SQ BID metformin 500 mg tablet extended release 24 hr 500 mg PO BID Label Comments: TAKE 1 TABLET BY MOUTH TWICE DAILY metoprolol succinate 50 mg tablet extended release 24 hr 50 mg PO DAILY fluticasone propionate 50 mcg/actuation spray,suspension 50 mcg intranasal NEEDED PRN (Reason: sinus drainage) topiramate [Topamax] 25 mg tablet 25 mg PO HS Qty: 180 3RF Rx Instructions: As directed on calendar up to 150 mg p.o. nightly ondansetron 4 mg tablet,disintegrating 4 mg PO Q6H PRN (Reason: nausea and vomiting) Qty: 30 0RF pregabalin 150 mg capsule 150 mg PO TID Qty: 90 0RF furosemide 40 mg tablet 40 mg PO DAILY PRN (Reason: Edema) Referrals Follow up/Referrals: Jabari Lawrence MD [Primary Care Provider] - See instructions Clinical Impressions Clinical Impression: Headache Instructions Patient Instructions: DI for Headache Discharge ED Provider: Jabari Lawrence Headache HPI General Chief Complaint: Headache Stated Complaint: Migraine Time Seen by Provider: 02/21/22 23:39 Mode of Arrival: Ambulatory Source of Information: Patient, Spouse and Medical Record Limitations: No Limitations Description of Symptoms (Recalled from ER Triage Doc. by RN): pt c/o POTTS with nauesa since saturday with no relief. pt has a history of migraine but this feels different History of Present Illness HPI Narrative: progressive potts over the last few days - no fever/rash or trauma - different from baseline potts - no relief with otc meds Complaint: headache Onset (ago): day(s) Onset description: gradual Location: diffuse Severity: moderate Quality: different than previous headaches Associated symptoms: none Treatments prior to arrival: acetaminophen Related Data Home Medications Medication Instructions Recorded Confirmed albuterol sulfate 90 mcg/actuation 1 puff inhalation DAILY PRN asthma 06/04/17 01/25/22 aerosol inhaler 17 days ##18 estradiol 2 mg tablet 2 mg PO DAILY HORMONE REPLACEMENT 06/04/17 01/25/22 30 days ##30 montelukast 10 mg tablet 10 mg PO DAILY allergies 30 days 06/04/17 01/25/22 ##30 dulaglutide 1.5 mg/0.5 mL 1.5 mg SQ WEEKLY Diabetes 28 days 06/11/19 01/25/22 subcutaneous pen injector #2 mL escitalopram oxalate 20 mg tablet 20 mg PO DAILY mood 11/12/19 01/25/22 moise
[2022-02-22 00:11] LABS: Procalcitonin 0.045 ng/mL (0.0-2.0)
[2022-02-22 00:23] LABS: Erythrocyte Sedimentation Rate 25 mm/hr (0-30)
[2022-02-22 00:31] VITALS: BP 149/72; PULSE 74; RESP 18; TEMP 36.6; O2SAT 100
[2022-02-22 00:37] LABS: C-Reactive Protein 5.2 mg/L (0-4)
== END 2022-02-22 00:33 | disposition home or self-care (01) ==
PROVIDERS: Emergency Provider Emergency Medicine; PCP Emergency Medicine
DX: G43.909 Migraine, unspecified, not intractable, without status migrainosus (principal); R42 Dizziness and giddiness; R00.0 Tachycardia, unspecified; R11.2 Nausea with vomiting, unspecified; I10 Essential (primary) hypertension; I25.10 Atherosclerotic heart disease of native coronary artery without angina pectoris; K21.9 Gastro-esophageal reflux disease without esophagitis; E78.5 Hyperlipidemia, unspecified; E11.9 Type 2 diabetes mellitus without complications; G62.9 Polyneuropathy, unspecified; J98.4 Other disorders of lung; M19.90 Unspecified osteoarthritis, unspecified site; J45.909 Unspecified asthma, uncomplicated; F41.9 Anxiety disorder, unspecified; F32.A Depression, unspecified; Z79.1 Long term (current) use of non-steroidal anti-inflammatories (NSAID); Z79.4 Long term (current) use of insulin; Z79.51 Long term (current) use of inhaled steroids; Z79.84 Long term (current) use of oral hypoglycemic drugs; Z79.899 Other long term (current) drug therapy; Z88.0 Allergy status to penicillin; Z88.5 Allergy status to narcotic agent; Z88.6 Allergy status to analgesic agent; Z88.8 Allergy status to other drugs, medicaments and biological substances; Z86.14 Personal history of Methicillin resistant Staphylococcus aureus infection; Z87.891 Personal history of nicotine dependence; Z91.048 Other nonmedicinal substance allergy status; Z82.49 Family history of ischemic heart disease and other diseases of the circulatory system; Z83.3 Family history of diabetes mellitus; Z80.9 Family history of malignant neoplasm, unspecified
CPT/HCPCS: 70450; 80053; 84145; 85025; 85651; 86140; 96361; 96374; 96375; 99285; J2405

== ENCOUNTER 2022-04-25 18:58 | Emergency (ER) | payer BC, SELFPAY ==
[2022-04-25 18:59] VITALS: BP 156/70; PULSE 86; RESP 19; TEMP 36.8; O2SAT 100; BMI 39.9
--- NOTE | 2022-04-25 19:12 | XR_ITS ---
PROCEDURE INFORMATION: Exam: XR Right Foot Exam date and time: 04/25/2022 7:17 PM Age: 56 years old Clinical indication: Pain; Patient HX: Right charco foot, no injury. Diabetic. TECHNIQUE: Imaging protocol: Radiologic exam of the Right foot. Views: 3 or more views. COMPARISON: CR XR FOOT WT BEARING RT 3V 01/25/2022 9:39 AM FINDINGS: Bones/joints: Osseous alignment is normal. There is irregular appearance of the tarsal navicular concerning for fracture of indeterminate age. No other findings suspicious for fracture seen. Soft tissues: Normal. IMPRESSION: Findings concerning for fracture of the tarsal navicular. In the setting of recent trauma, further evaluation with CT would be recommended. In the setting of chronic neuropathy, this may represent osteonecrosis.
--- NOTE | 2022-04-25 19:12 | XR_ITS ---
PROCEDURE INFORMATION: Exam: XR Right Ankle Exam date and time: 04/25/2022 7:15 PM Age: 56 years old Clinical indication: Pain; Ankle; Right; Patient HX: HX of charco foot. TECHNIQUE: Imaging protocol: Radiologic exam of the Right ankle. Views: 3 or more views. COMPARISON: MR ANKLE RT WO/W CON 02/24/2021 1:13 PM FINDINGS: Bones/joints: Ankle mortise is normally aligned with no significant arthritic change seen about the ankle. The foot is held in slight inversion and there is an irregular appearance of the tarsal navicular concerning for fracture of indeterminate age. No other findings suspicious for fracture seen. Soft tissues: Moderate soft tissue swelling noted about the ankle IMPRESSION: Irregular appearance of the tarsal navicular concerning for fracture of indeterminate age. No acute fracture or malalignment seen about the ankle itself.
--- NOTE | 2022-04-25 19:14 | XR_ITS ---
PROCEDURE INFORMATION: Exam: XR Right Tibia and Fibula Exam date and time: 04/25/2022 7:14 PM Age: 56 years old Clinical indication: Lower leg; Patient HX: Right foot pain, patient states she has charco foot. She is diabetic. TECHNIQUE: Imaging protocol: Radiologic exam of the Right tibia and fibula. Views: 2 views. COMPARISON: CR XR FOOT WT BEARING RT 3V 01/25/2022 9:39 AM FINDINGS: Bones/joints: Osseous alignment appears normal. Right tibia and fibula are intact. No significant arthritic changes are seen. Soft tissues: Normal. IMPRESSION: Negative right tibia and fibula
--- NOTE | 2022-04-25 19:49 | EXP.UTC ---
Discharge Plan Disposition Patient Disposition: Home, Self-Care Condition: Good Prescriptions Prescriptions: No Action simvastatin 40 mg tablet 40 mg PO DAILY Label Comments: TAKE 1 TABLET BY MOUTH EVERY DAY lisinopril 5 mg tablet 5 mg PO DAILY melatonin 10 mg capsule 10 mg PO HS PRN (Reason: Sleep) diphenhydramine-acetaminophen [Tylenol PM Extra Strength] 25-500 mg tablet 1 tab PO HS PRN (Reason: ithcing) buspirone 7.5 mg tablet 7.5 mg PO ONCE insulin glargine [Lantus Solostar U-100 Insulin] 100 unit/mL (3 mL) insulin pen 5 unit SQ HS topiramate 100 mg tablet 150 mg PO HS Qty: 45 2RF estradiol 2 mg tablet 2 mg PO DAILY 30 Days Qty: 30 Label Comments: albuterol sulfate 90 mcg/actuation HFA aerosol inhaler 1 puff inhalation DAILY PRN (Reason: asthma) 17 Days Qty: 18 Label Comments: montelukast 10 mg tablet 10 mg PO DAILY 30 Days Qty: 30 Label Comments: dulaglutide 1.5 mg/0.5 mL pen injector 1.5 mg SQ WEEKLY 28 Days Qty: 2 Label Comments: sitagliptin phosphate 100 mg tablet 100 mg PO DAILY pantoprazole 40 mg tablet,delayed release (DR/EC) 40 mg PO DAILY ibuprofen 800 mg tablet 800 mg PO NEEDED PRN (Reason: pain) insulin NPH and regular human 100 unit/mL (70-30) insulin pen 60 unit SQ BID metformin 500 mg tablet extended release 24 hr 500 mg PO BID Label Comments: TAKE 1 TABLET BY MOUTH TWICE DAILY metoprolol succinate 50 mg tablet extended release 24 hr 50 mg PO DAILY fluticasone propionate 50 mcg/actuation spray,suspension 50 mcg intranasal NEEDED PRN (Reason: sinus drainage) ondansetron 4 mg tablet,disintegrating 4 mg PO Q6H PRN (Reason: nausea and vomiting) Qty: 30 0RF pregabalin 150 mg capsule 150 mg PO TID Qty: 90 1RF duloxetine 30 mg capsule,delayed release(DR/EC) See Rx Instructions .ROUTE .COMPLEX Qty: 90 0RF Dose Instruction: TAKE 1 CAPSULE BY MOUTH DAILY Rx Instructions: TAKE 1 CAPSULE BY MOUTH DAILY furosemide 40 mg tablet 40 mg PO DAILY PRN (Reason: Edema) Referrals Follow up/Referrals: Jabari Lawrence MD [Primary Care Provider] - See instructions Aure Bee DPM [Staff Physician] - See instructions Activity Restrictions/Add. Instructions Additional Instructions/Restrictions: Rest the extremity, Elevate the extremity as tolerated while you are resting. Follow up with Dr. Bee (podiatry). Please call her office tomorrow to get an appointment to be seen there for your right foot pain. Follow up with your regular doctor. GO TO THE ER FOR ANY WORSENING SYMPTOMS Clinical Impressions Clinical Impression: Foot pain, right Instructions Patient Instructions: DI for Foot Pain, How to Use a Walking Boot Discharge ED Provider: Chandler Martinez [facility] General Stated complaint: RT foot swelling and painful Time Seen by Provider: 04/25/22 19:49 History of Present Illness Provider Complaint: She states that for the past 2 weeks she has had right foot pain and swelling. She denies any known injury. She has a history of Charcot foot of her left foot. She is treated by Dr. Bee for her right foot issues. Related Data Home Medications Medication Instructions Recorded Confirmed albuterol sulfate 90 mcg/actuation 1 puff inhalation DAILY PRN asthma 06/04/17 03/08/22 aerosol inhaler 17 days ##18 estradiol 2 mg tablet 2 mg PO DAILY HORMONE REPLACEMENT 06/04/17 03/08/22 30 days ##30 montelukast 10 mg tablet 10 mg PO DAILY allergies 30 days 06/04/17 03/08/22 ##30 dulaglutide 1.5 mg/0.5 mL 1.5 mg SQ WEEKLY Diabetes 28 days 06/11/19 03/08/22 subcutaneous pen injector #2 mL sitagliptin phosphate 100 mg tablet 100 mg PO DAILY Diabetes 11/12/19 03/08/22 ibuprofen 800 mg tablet 800 mg PO NEEDED PRN pain 04/28/20 03/08/22 pantoprazole 40 mg tablet,delayed 40 mg PO DAILY stomach
[2022-04-25 20:35] VITALS: BP 156/70; PULSE 86; RESP 19; TEMP 36.8; O2SAT 100
== END 2022-04-25 20:35 | disposition home or self-care (01) ==
PROVIDERS: Emergency Provider Nurse Practitioner Family; PCP Emergency Medicine
DX: M79.671 Pain in right foot (principal); M79.89 Other specified soft tissue disorders
CPT/HCPCS: 73590; 73610; 73630; 99213; G0463

== ENCOUNTER → 2022-05-16 16:50 | Outpatient (CLI) | payer BC, SELFPAY ==
--- NOTE | 2022-05-16 16:58 | XR_ITS ---
PROCEDURE INFORMATION: Exam: XR Right Foot Complete; Alignment Exam date and time: 05/16/2022 5:03 PM Age: 56 years old Clinical indication: Pain; Ankle and foot; Right; Additional info: Right foot pain TECHNIQUE: Imaging protocol: Radiologic exam of the Right foot. Views: 3 or more views. COMPARISON: CR XR FOOT RT MIN 3V 04/25/2022 7:17 PM FINDINGS: Bones/joints: Periarticular osteopenia. Persistent irregularity of the navicular bone. Associated fragmentation now demonstrated. Increased soft tissue swelling. Irregularity of the calcaneus is also demonstrated. Soft tissues: See Bones/joints finding. IMPRESSION: Focal cortical irregularity and fragmentation involving the navicular bone as well as the calcaneus. Clinically correlate as findings may correspond to a Charcot joint. Both findings more pronounced in comparison to the previous study.
--- NOTE | 2022-05-16 16:58 | XR_ITS ---
PROCEDURE INFORMATION: Exam: XR Right Ankle Exam date and time: 05/16/2022 5:03 PM Age: 56 years old Clinical indication: Pain; Ankle and foot; Right; Additional info: Right foot pain TECHNIQUE: Imaging protocol: Radiologic exam of the Right ankle. Views: 3 or more views. COMPARISON: CR XR ANKLE RT MIN 3V 04/25/2022 7:15 PM FINDINGS: Bones/joints: Progressive fragmentation of the navicular bone . Soft tissues: Mild diffuse soft tissue swelling. IMPRESSION: Progressive fragmentation of the navicular bone. In the absence of significant trauma, findings most suggestive of a Charcot joint. Clinically correlate
== END ==
LOC: RAD 16:51
PROVIDERS: PCP Emergency Medicine; Visit Provider Nurse Practitioner Family
DX: M79.671 Pain in right foot (principal); M25.571 Pain in right ankle and joints of right foot
CPT/HCPCS: 73610; 73630

== ENCOUNTER → 2022-06-06 16:57 | Outpatient (CLI) | payer BC, SELFPAY ==
--- NOTE | 2022-06-06 17:03 | XR_ITS ---
PROCEDURE INFORMATION: Exam: XR Right Foot Complete; Alignment Exam date and time: 06/06/2022 5:04 PM Age: 56 years old Clinical indication: Condition or disease; Other: Navicular FX; Additional info: Navicular fracture TECHNIQUE: Imaging protocol: Radiologic exam of the Right foot. Views: 3 or more views. Total images: 3 COMPARISON: CR XR FOOT WT BEARING RT 3V 05/16/2022 5:03 PM FINDINGS: Bones/joints: Mild pes planus. No evidence of acute fracture. No evidence of acute dislocation. Bones are osteopenic. Irregularity of the navicular bone is again noted and similar to the prior studies. Soft tissues: Normal. IMPRESSION: 1. Mild pes planus. 2. No evidence of acute fracture. 3. No evidence of acute dislocation. 4. Bones are osteopenic. 5. Irregularity of the navicular bone is again noted and similar to the prior studies.
== END ==
LOC: RAD 16:57
PROVIDERS: PCP Emergency Medicine; Visit Provider Nurse Practitioner Family
DX: M79.671 Pain in right foot (principal)
CPT/HCPCS: 73630

== ENCOUNTER → 2022-06-28 10:25 | Outpatient (CLI) | payer BC, SELFPAY ==
--- NOTE | 2022-06-28 10:28 | XR_ITS ---
FINAL REPORT CLINICAL HISTORY: Right foot pain COMPARISON: 06/06/2022 FINDINGS: RIGHT FOOT 3 views of the right foot were obtained. There is no acute fracture or dislocation. There is chronic fragmentation of the navicular bone. Soft tissue calcifications are seen laterally. There is pes planus deformity again noted. 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 No acute bony abnormality. Reviewed, Interpreted and Dictated by Lai Pressley III, MD Transcribed by Natali Fitch Authenticated and [facility]
== END ==
LOC: RAD 10:25
PROVIDERS: PCP Emergency Medicine; Visit Provider Podiatrist
DX: M14.671 Charcot's joint, right ankle and foot (principal); R60.0 Localized edema; S92.251A Displaced fracture of navicular [scaphoid] of right foot, initial encounter for closed fracture
CPT/HCPCS: 73630

== ENCOUNTER → 2022-07-06 13:43 | Outpatient (CLI) | payer BC, SELFPAY ==
--- NOTE | 2022-07-06 13:43 | MR_ITS ---
FINAL REPORT CLINICAL HISTORY: right lateral ankle pain since March 2022 FINDINGS: Multiplanar MR imaging of the right ankle was performed without contrast. There is bone marrow edema throughout the midfoot. There is fragmentation of the navicular, may represent changes of neuropathic osteoarthropathy. No osteochondral lesion is identified. The ligaments are intact without evidence of injury. There is posterior tibial, peroneus longus and brevis tenosynovitis. Tibiotalar and subtalar joint effusions are identified. There is posterior plantar fasciitis. The musculature is intact. There is no evidence of soft tissue mass or cyst. IMPRESSION: Bone marrow edema throughout the midfoot. 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 Tenosynovitis as above. Posterior plantar fasciitis. Reviewed, Interpreted and Dictated by Lai Pressley III, MD Transcribed by Loly Aguirre Authenticated and . [facility]
--- NOTE | 2022-07-06 13:43 | CT_ITS ---
FINAL REPORT TECHNIQUE: Thin section axial CT images with coronal and sagittal reformats were performed. 3D imaging was also submitted. This study was performed with techniques to keep radiation doses as low as reasonably achievable (ALARA). Individualized dose reduction techniques using automated exposure control or adjustment of mA and/or kV according to the patient''s size were employed. CLINICAL HISTORY: foot pain FINDINGS: CT LOWER EXTREMITY W/O CONTRAST: RIGHT FOOT There is fragmentation of the navicular with multiple bony fragments of the medial and lateral aspect of the midfoot. 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 There is a non displaced comminuted fracture of the distal calcaneus including the anterior process. There is diffuse soft tissue swelling. IMPRESSION: Severely comminuted fracture of the navicular with multiple bony fragments. Comminuted nondisplaced fracture of the distal calcaneus. 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 Widespread soft tissue swelling. Reviewed, Interpreted and Dictated by Lai Pressley III, MD Transcribed by Claudia Damon Authenticated and [facility]
== END ==
LOC: RAD 13:43
PROVIDERS: PCP Emergency Medicine; Visit Provider Podiatrist
DX: S92.251D Displaced fracture of navicular [scaphoid] of right foot, subsequent encounter for fracture with routine healing (principal); M14.672 Charcot's joint, left ankle and foot
CPT/HCPCS: 73700; 73721

== ENCOUNTER → 2022-07-06 15:25 | Outpatient (CLI) | payer BC, SELFPAY ==
[2022-07-06 16:17] LABS: Basophils % 0.4 % (0.1-2.0); Eosinophils # 0.5 K/mm3 (0.0-0.4); Eosinophils % 5.5 % (0.1-12.0); Hematocrit 40.7 % (37.0-47.0); Hemoglobin 13.5 g/dL (12.2-16.2); Lymphocytes # 3.9 K/mm3 (0.7-4.5); Lymphocytes % 43.7 % (10-50); Mean Corpuscular HGB Conc 33.1 g/dL (31.8-35.4); Mean Corpuscular Hemoglobin 30.4 pg (27.0-31.2); Mean Corpuscular Volume 91.8 fl (81-99); Mean Platelet Volume 9.3 fl (7.4-10.4); Monocytes # 0.4 K/mm3 (0.1-1.0); Monocytes % 4.9 % (1.7-9.3); Neutrophils # 4.1 K/mm3 (1.8-7.8); Neutrophils % 45.5 % (37.0-80.0); Platelet Count 271 K/mm3 (142-424); Red Blood Count 4.43 M/mm3 (4.20-5.40); Red Cell Distribution Width 13.7 % (11.5-17.5); White Blood Count 8.9 K/mm3 (4.8-10.8)
[2022-07-06 16:36] LABS: Chloride 104 mmol/L (98-107)
[2022-07-06 16:37] LABS: Potassium 4.4 mmoL/L (3.5-5.1); Sodium 137 mmol/L (136-145)
[2022-07-06 16:39] LABS: Alanine Aminotransferase 14 U/L (12-78); Alkaline Phosphatase 104 U/L (38-126); Aspartate Amino Transferase 24 U/L (14-36); Bilirubin,Total 0.3 mg/dl (0.2-1.3); Blood Urea Nitrogen 19 mg/dl (7-17); Estimated Glomerular Filt Rate 43 ml/min (>60); GFR (African American) 51 ML/MIN (>60)
[2022-07-06 16:40] LABS: Albumin Level 3.7 g/dl (3.5-5.0); Albumin/Globulin Ratio 1.2 (1.1-1.8); Anion Gap 10.4 mEq/L (5-15); Calcium 8.7 mg/dl (8.4-10.2); Carbon Dioxide 27 mmol/L (22.0-30.0); Globulin 3.2 g/dL (1.3-3.2); Glucose 170 mg/dl (74-100); Total Protein,Serum 6.9 g/dl (6.3-8.2)
[2022-07-06 16:47] LABS: C-Reactive Protein 5.6 mg/L (0-4)
[2022-07-06 17:33] LABS: Erythrocyte Sedimentation Rate 75 mm/hr (0-30)
[2022-07-06 17:45] LABS: Hemoglobin A1C 8.1 % (4.0-6.0)
[2022-07-19 01:07] LABS: 1,25 Dihydroxy Vitamin D 34 pg/mL (.); 1,25-Dihydroxy, Vitamin D-2 11 pg/mL (.); 1,25-Dihydroxy, Vitamin D-3 23 pg/mL (.)
== END ==
PROVIDERS: PCP Emergency Medicine; Visit Provider Podiatrist
DX: M14.671 Charcot's joint, right ankle and foot (principal); S92.251D Displaced fracture of navicular [scaphoid] of right foot, subsequent encounter for fracture with routine healing; E66.9 Obesity, unspecified; Z68.39 Body mass index [BMI] 39.0-39.9, adult
CPT/HCPCS: 36415; 80053; 82652; 83036; 85025; 85651; 86140

== ENCOUNTER 2022-07-08 17:35 | Emergency (ER) | payer BC, SELFPAY ==
[2022-07-08 17:45] VITALS: BP 151/55; PULSE 80; RESP 16; O2SAT 99
[2022-07-08 17:51] VITALS: BP 151/55; PULSE 82; RESP 18; TEMP 36.8; O2SAT 99; BMI 39.9
--- NOTE | 2022-07-08 17:58 | XR_ITS ---
PROCEDURE INFORMATION: Exam: XR Right Ankle Exam date and time: 07/08/2022 6:20 PM Age: 56 years old Clinical indication: Injury or trauma; Fall; Blunt trauma; Ankle; Right TECHNIQUE: Imaging protocol: Radiologic exam of the right ankle. Views: 3 or more views. COMPARISON: MR ANKLE RT WO CON 07/06/2022 1:47 PM FINDINGS: Bones/joints: Ankle joint is normally aligned. No acute fracture seen about the ankle itself. Fractures of the talus and calcaneus noted, as described on recent CT. Soft tissues: Moderate soft tissue swelling of the ankle noted. IMPRESSION: No acute abnormality of the ankle joint itself. Fractures of the talus and calcaneus as described on recent CT
--- NOTE | 2022-07-08 17:58 | XR_ITS ---
PROCEDURE INFORMATION: Exam: XR Right Foot Exam date and time: 07/08/2022 6:20 PM Age: 56 years old Clinical indication: Injury or trauma; Fall; Blunt trauma; Ankle; Right TECHNIQUE: Imaging protocol: Radiologic exam of the right foot. Views: 3 or more views. COMPARISON: CT FOOT RT WO CON 07/06/2022 3:06 PM FINDINGS: Bones/joints: Again seen are findings of severely comminuted navicular fracture with navicular collapse, fracture of the anterolateral calcaneus and multiple surrounding bony fragments. Findings appear little changed from a study of 2 days previous. No definite new fracture seen. Soft tissues: Diffuse soft tissue swelling of the foot noted IMPRESSION: Similar-appearing findings of talar and calcaneal fractures as previously described. No definite new fracture.
--- NOTE | 2022-07-08 17:58 | XR_ITS ---
PROCEDURE INFORMATION: Exam: XR Right Elbow Exam date and time: 07/08/2022 6:20 PM Age: 56 years old Clinical indication: Injury or trauma; Fall; Blunt trauma (contusions or hematomas); Elbow; Right TECHNIQUE: Imaging protocol: Radiologic exam of the right elbow. Views: 3 or more views. COMPARISON: CR XR SHOULDER RT MIN 2V 05/20/2020 9:46 AM FINDINGS: Bones/joints: Normal. Soft tissues: Normal. IMPRESSION: No acute findings.
[2022-07-08 18:00] VITALS: BP 163/74; PULSE 81; RESP 16; O2SAT 99
--- NOTE | 2022-07-08 18:08 | HMH.EDGENADL ---
Discharge Plan Disposition Patient Disposition: Home, Self-Care Condition: Good Prescriptions Prescriptions: No Action melatonin 10 mg capsule 10 mg PO HS PRN (Reason: Sleep) diphenhydramine-acetaminophen [Tylenol PM Extra Strength] 25-500 mg tablet 1 tab PO HS PRN (Reason: ithcing) insulin glargine [Lantus Solostar U-100 Insulin] 100 unit/mL (3 mL) insulin pen 5 unit SQ HS topiramate 100 mg tablet 150 mg PO HS Qty: 45 2RF Nurtec ODT 75 mg tablet,disintegrating 75 mg PO Q OTHER DAY MDD 75 mg PRN (Reason: migraine headache) Qty: 10 3RF albuterol sulfate 90 mcg/actuation HFA aerosol inhaler 1 puff inhalation DAILY PRN (Reason: asthma) 17 Days Qty: 18 Label Comments: montelukast 10 mg tablet 10 mg PO DAILY 30 Days Qty: 30 Label Comments: pantoprazole 40 mg tablet,delayed release (DR/EC) 40 mg PO DAILY ibuprofen 800 mg tablet 800 mg PO NEEDED PRN (Reason: pain) metformin 500 mg tablet extended release 24 hr 500 mg PO BID Label Comments: TAKE 1 TABLET BY MOUTH TWICE DAILY metoprolol succinate 50 mg tablet extended release 24 hr 50 mg PO DAILY fluticasone propionate 50 mcg/actuation spray,suspension 50 mcg intranasal NEEDED PRN (Reason: sinus drainage) losartan 25 mg tablet 25 mg PO DAILY Qty: 30 2RF (DME) Dexcom G6 Sensor Device See Rx Instructions .Route Qty: 3 0RF Rx Instructions: As directed (DME) Dexcom G6 Elastic Tape Inserter Misc See Rx Instructions .Route Qty: 1 0RF Rx Instructions: As directed (DME) Dexcom G6 Transmitter Device See Rx Instructions .Route Qty: 1 0RF Rx Instructions: As directed tramadol 50 mg tablet 50 mg PO TID Qty: 90 2RF ondansetron 4 mg tablet,disintegrating 4 mg PO Q6H PRN (Reason: nausea and vomiting) Qty: 30 0RF pregabalin 150 mg capsule 150 mg PO TID Qty: 90 1RF Trulicity 1.5 mg/0.5 mL pen injector See Rx Instructions .ROUTE .COMPLEX Qty: 2 2RF Dose Instruction: INJECT 1 PREFILLED SYRINGE ONCE WEEKLY Rx Instructions: INJECT 1 PREFILLED SYRINGE ONCE WEEKLY buspirone 7.5 mg tablet See Rx Instructions .ROUTE .COMPLEX Qty: 60 2RF Dose Instruction: TAKE 1 TABLET BY MOUTH TWICE DAILY Rx Instructions: TAKE 1 TABLET BY MOUTH TWICE DAILY duloxetine 60 mg capsule,delayed release(DR/EC) See Rx Instructions .ROUTE .COMPLEX Qty: 90 0RF Dose Instruction: TAKE 1 CAPSULE BY MOUTH DAILY Rx Instructions: TAKE 1 CAPSULE BY MOUTH DAILY insulin NPH and regular human 100 unit/mL (70-30) insulin pen 65 unit SQ BID 30 Days Qty: 39 2RF simvastatin 40 mg tablet 40 mg PO DAILY 90 Days Qty: 90 0RF Januvia 100 mg tablet See Rx Instructions .ROUTE .COMPLEX Qty: 30 0RF Dose Instruction: TAKE 1 TABLET BY MOUTH EVERY DAY Rx Instructions: TAKE 1 TABLET BY MOUTH EVERY DAY estradiol 2 mg tablet 2 mg PO DAILY 90 Days Qty: 90 0RF furosemide 40 mg tablet 40 mg PO DAILY PRN (Reason: Edema) Referrals Follow up/Referrals: Jabari Lawrence MD [Primary Care Provider] - See instructions Activity Restrictions/Add. Instructions Additional Instructions/Restrictions: Tramadol as needed for pain. Continue using your current orthopedic boots. Follow-up with Dr. Bee, podiatry, call tomorrow for appointment. Clinical Impressions Clinical Impression: Foot pain, right, Charcot's joint, right ankle and foot, Contusion of right elbow, Tenosynovitis of ankle Discharge ED Provider: Herbie Abdul General Adult HPI General Chief complaint: PAIN Stated complaint: AO 07/08 right foot and ankle, left elbow Time Seen by Provider: 07/08/22 17:52 Mode of Arrival: Wheelchair Source of Information: Patient Limitations: No Limitations Description of Symptoms (Recalled from ER Triage Doc. by RN): pt to ed c/o right foot pain afer a fall today. pt states she tripped over the
[2022-07-08 18:30] VITALS: BP 144/83; PULSE 78; RESP 18; O2SAT 99
[2022-07-08 18:46] VITALS: BP 144/83; PULSE 79; RESP 19; TEMP 36.8; O2SAT 100
== END 2022-07-08 18:47 | disposition home or self-care (01) ==
PROVIDERS: Emergency Provider Emergency Medicine; PCP Emergency Medicine
DX: M79.671 Pain in right foot (principal); S50.01XA Contusion of right elbow, initial encounter; M65.871 Other synovitis and tenosynovitis, right ankle and foot; M14.671 Charcot's joint, right ankle and foot; W01.10XA Fall on same level from slipping, tripping and stumbling with subsequent striking against unspecified object, initial encounter
CPT/HCPCS: 73080; 73610; 73630; 99284

== ENCOUNTER → 2022-08-09 16:35 | Outpatient (CLI) | payer BC, SELFPAY ==
--- NOTE | 2022-08-09 16:52 | XR_ITS ---
PROCEDURE INFORMATION: Exam: XR Right Ankle Exam date and time: 08/09/2022 4:54 PM Age: 56 years old Clinical indication: Pain; Ankle and foot; Right; Bilateral; Additional info: Ankle pain TECHNIQUE: Imaging protocol: Radiologic exam of the right ankle. Views: 3 or more views. COMPARISON: CR XR ANKLE RT MIN 3V 07/08/2022 6:20 PM FINDINGS: Bones/joints: Chronic fragmentation of tarsal bones. Pes planus. Small inferior calcaneal spur. Mild degenerative changes of ankle mortise. Soft tissues: Normal. Other findings: No effusion. IMPRESSION: Chronic fragmentation of the tarsal bones compatible with sequela of neuropathic joint. No acute radiographic findings identified.
--- NOTE | 2022-08-09 16:52 | XR_ITS ---
PROCEDURE INFORMATION: Exam: XR Chest Exam date and time: 08/09/2022 4:54 PM Age: 56 years old Clinical indication: Cough; Additional info: Pre-op clearance TECHNIQUE: Imaging protocol: Radiologic exam of the chest. Views: 2 views. COMPARISON: CR XR CHEST PORTABLE 09/29/2020 12:35 PM FINDINGS: Lungs: Unremarkable. No consolidation. Pleural spaces: Unremarkable. No pleural effusion. No pneumothorax. Heart/Mediastinum: Unremarkable. No cardiomegaly. Bones/joints: Unremarkable. IMPRESSION: No acute findings.
--- NOTE | 2022-08-09 16:52 | XR_ITS ---
PROCEDURE INFORMATION: Exam: XR Right Calcaneus Exam date and time: 08/09/2022 4:54 PM Age: 56 years old Clinical indication: Pain; Ankle and foot; Right; Additional info: Foot pain TECHNIQUE: Imaging protocol: Radiologic exam of the right calcaneus. Views: 2 or more views. COMPARISON: CR XR FOOT RT MIN 3V 07/08/2022 6:20 PM FINDINGS: Bones/joints: Chronic fragmentation of the intertarsal bones. Calcaneus grossly unremarkable with small inferior calcaneal spur. Pes planus. Soft tissues: Normal. Other findings: No effusion. 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 Calcaneus with small inferior spur. Otherwise grossly unremarkable. No acute radiographic findings identified.
--- NOTE | 2022-08-09 16:52 | XR_ITS ---
PROCEDURE INFORMATION: Exam: XR Right Foot Complete; Alignment Exam date and time: 08/09/2022 4:54 PM Age: 56 years old Clinical indication: Pain; Ankle and foot; Right; Additional info: Foot pain TECHNIQUE: Imaging protocol: Radiologic exam of the right foot. Views: 3 or more views. COMPARISON: CR XR FOOT RT MIN 3V 07/08/2022 6:20 PM FINDINGS: Bones/joints: Chronic fragmentation of intertarsal bones with chronic subluxation. No acute cortical disruption. Chronic pes planus. No effusion. Soft tissues: Normal. 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 No acute radiographic findings identified.
--- NOTE | 2022-08-09 17:21 | ECG_ITS ---
APPROVED REPORT Exam: Resting ECG HR:71 bpm ECG Measurements Heart Rate 71 AXES ND 150 P 42 QRSd 88 QRS -20 QT 384 T 31 QTc 406 Conclusion SINUS RHYTHM POSSIBLE ANTERIOR MYOCARDIAL INFARCTION , PROBABLY OLD [30 ms Q WAVE IN V3/V4, OR R < 0.2 mV IN V4] BORDERLINE ECG UNCONFIRMED REPORT Electronically signed by : Miles Lemon MD 08/10/2022 14:21:11
== END ==
LOC: RAD 16:36
PROVIDERS: PCP Emergency Medicine; Visit Provider Nurse Practitioner Family
DX: Z01.818 Encounter for other preprocedural examination (principal); M25.571 Pain in right ankle and joints of right foot; M14.671 Charcot's joint, right ankle and foot; S92.001A Unspecified fracture of right calcaneus, initial encounter for closed fracture; S92.101A Unspecified fracture of right talus, initial encounter for closed fracture; S92.251A Displaced fracture of navicular [scaphoid] of right foot, initial encounter for closed fracture
CPT/HCPCS: 71046; 73610; 73630; 73650; 93005

== ENCOUNTER → 2022-08-09 23:21 | Outpatient (CLI) | payer BC, SELFPAY ==
[2022-08-09 17:52] LABS: Basophils % 0.4 % (0.1-2.0); Eosinophils # 0.3 K/mm3 (0.0-0.4); Eosinophils % 2.4 % (0.1-12.0); Hematocrit 42.7 % (37.0-47.0); Hemoglobin 13.8 g/dL (12.2-16.2); Lymphocytes # 4.4 K/mm3 (0.7-4.5); Lymphocytes % 42.6 % (10-50); Mean Corpuscular HGB Conc 32.4 g/dL (31.8-35.4); Mean Corpuscular Hemoglobin 29.9 pg (27.0-31.2); Mean Corpuscular Volume 92.5 fl (81-99); Monocytes # 0.6 K/mm3 (0.1-1.0); Monocytes % 5.5 % (1.7-9.3); Platelet Count 310 K/mm3 (142-424); Red Blood Count 4.62 M/mm3 (4.20-5.40); White Blood Count 10.2 K/mm3 (4.8-10.8)
[2022-08-09 18:13] LABS: Chloride 103 mmol/L (98-107)
[2022-08-09 18:14] LABS: Potassium 3.8 mmoL/L (3.5-5.1); Sodium 138 mmol/L (136-145)
[2022-08-09 18:16] LABS: Alanine Aminotransferase 16 U/L (12-78); Aspartate Amino Transferase 23 U/L (14-36); Blood Urea Nitrogen 19 mg/dl (7-17); Estimated Glomerular Filt Rate 43 ml/min (>60); GFR (African American) 51 ML/MIN (>60)
[2022-08-09 18:17] LABS: Albumin Level 3.7 g/dl (3.5-5.0); Albumin/Globulin Ratio 1.2 (1.1-1.8); Alkaline Phosphatase 107 U/L (38-126); Anion Gap 12.8 mEq/L (5-15); Bilirubin,Total 0.4 mg/dl (0.2-1.3); Calcium 9.2 mg/dl (8.4-10.2); Carbon Dioxide 26 mmol/L (22.0-30.0); Globulin 3.2 g/dL (1.3-3.2); Glucose 129 mg/dl (74-100); Total Protein,Serum 6.9 g/dl (6.3-8.2)
[2022-08-09 18:24] LABS: C-Reactive Protein 5.5 mg/L (0-4)
[2022-08-09 18:34] LABS: 25-OH Vitamin D, Total 18.5 ng/mL (30-100)
[2022-08-09 18:35] LABS: Erythrocyte Sedimentation Rate 19 mm/hr (0-30)
[2022-08-09 18:50] LABS: Hemoglobin A1C 8.8 % (4.0-6.0)
== END ==
PROVIDERS: PCP Nurse Practitioner Family; Visit Provider Nurse Practitioner Family
DX: R53.83 Other fatigue (principal); E55.9 Vitamin D deficiency, unspecified; Z01.818 Encounter for other preprocedural examination; I10 Essential (primary) hypertension; E11.9 Type 2 diabetes mellitus without complications; Z79.4 Long term (current) use of insulin
CPT/HCPCS: 80053; 82306; 83036; 85025; 85651; 86140

== ENCOUNTER → 2022-08-23 14:20 | Outpatient (CLI) | payer BC, SELFPAY ==
--- NOTE | 2022-08-23 14:24 | US_ITS ---
FINAL REPORT CLINICAL HISTORY: CLAUDICATION,REST PAIN,DM,HTN,HLD,EX SMOKER COMPARISON: None FINDINGS: ANKLE-BRACHIAL PRESSURE INDICES Pressure indices are as follows: RIGHT LOWER EXTREMITY: Ankle-brachial pressure index: 0.96 Comments: Normal LEFT LOWER EXTREMITY: Ankle-brachial pressure index: 0.89 Comments: Normal Monophasic waveforms suggest possible mild to moderate inflow stenosis bilaterally. IMPRESSION: Monophasic waveform suggesting possible mild to moderate inflow stenosis bilaterally. CTA with attention to the iliacs may be of value. Reviewed, Interpreted and Dictated by Remberto Bose MD Transcribed by Kati Lamas Authenticated and [facility]
== END ==
LOC: RT 14:21
PROVIDERS: PCP Nurse Practitioner Family; Visit Provider Podiatrist
DX: M79.2 Neuralgia and neuritis, unspecified (principal); M14.671 Charcot's joint, right ankle and foot; I89.0 Lymphedema, not elsewhere classified; R60.0 Localized edema
CPT/HCPCS: 93923

== ENCOUNTER 2022-08-29 08:51 | Observation (INO) | payer BC, SELFPAY ==
[2022-08-28 13:05] VITALS: BMI 39.9
[2022-08-29] VITALS (22 sets, daily range): BP systolic 117–166; BP diastolic 47–91; PULSE 73–87; RESP 12–20; TEMP 36.1–43; O2SAT 92–99; BMI 42.5
[2022-08-29 06:21] LABS: Coronavirus 19, PCR Not Detected (NotDetected); Influenza A, PCR Not Detected (NotDetected); Influenza B, PCR Not Detected (NotDetected)
--- NOTE | 2022-08-29 08:20 | EXP.ANES.CKL ---
[facility] Disclaimer: The information contained in this section may have been updated after the patient was seen, as this information can be updated by other users. Medical History Allergic rhinitis Anxiety and depression Asthma delivery delivered Diabetes Dizziness Improved, denies further syncope. Positive tilt table test. BP dropped to 90/30 after 15 minutes with minimal compensatory tachycardia. Amitriptyline, furosemide, spironolactone have been discontinued with symptomatic improvement. She takes furosemide as needed only. Dyspnea Dyspnea on exertion Encounter for pre-operative cardiovascular clearance HLD (hyperlipidemia) HTN (hypertension) Left foot pain Migraine headache Neuropathy Nonunion of joint fusion Sprain of anterior talofibular ligament of left ankle Tear of peroneal tendon Surgical History H/O eye surgery H/O: hysterectomy S/P carpal tunnel release S/P cholecystectomy Status post ankle fusion Status post surgical manipulation of ankle joint Family History Other Cancer Coronary artery disease Diabetes Hypertension Social History Smoking Status: Never smoker second hand exposure: No alcohol intake: never substance use type: denies use current occupational status: retired Travel in the last 8 weeks: None household members: spouse 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 occupational exposures/hazards: No caffeine: Yes [facility] Anesthesia Checklist Patient Identification Patient Identification: Arm Band and Verbal (Name & ) Structural Data Admitted From: Home Planned Operative Procedure/s: Right Foot Charcot Reconstruction Consent for Planned Operative Procedure(s) Verified: Yes Verified Documents: Surgical Consent NPO Status Verified Time NPO: 00:00 Chart Verification Results Verified: CBC and BMP Additional verifications Anesthesia Reactions: No Hx Blood Transfusions: No Blood Transfusion Reaction: No Airway Assessment C-Spine Mobility Assessed: Yes TMJ Mobility Assessed: Yes Dentition: Good Dentition Neurological Assessment Level of Consciousness: Awake, Alert and Appropriate Anesthesia Plan Anesthesia Risk discussed: Yes Anesthesia Plan: Patient unable to respond/answer ASA Class: III Anesthesia Type: General w/block
--- NOTE | 2022-08-29 09:21 | SUR.OPER ---
0829- Family updated of start of surgery by Kendal Michael RN.
--- NOTE | 2022-08-29 10:20 | SUR.OPER ---
1020- Family updated of patient's current status by Ladonna MckeonRN
[2022-08-29 10:46] LABS: POC Glucose,Bedside 80 (70-110)
[2022-08-29 10:46] LABS: POC Glucose,Bedside 78 (70-110)
--- NOTE | 2022-08-29 11:38 | XR_ITS ---
FINAL REPORT CLINICAL HISTORY: RT CHARCOT IN OR, FT 3:58 COMPARISON: None FINDINGS: FLUOROSCOPY LESS THAN 1 HOUR HISTORY: Fluoroscopy guided injection. FINDINGS: Fluoroscopic guidance was provided for right foot injection. A single spot film was obtained. 3.9 minutes of fluoroscopy time were used. IMPRESSION: As above. Reviewed, Interpreted and Dictated by Deepa Marques MD Transcribed by Kati Lamas Authenticated and [facility]
--- NOTE | 2022-08-29 12:45 | SUR.OPER ---
FAMILY UPDATED AT 1240 PER MD ORDER.
--- NOTE | 2022-08-29 13:23 | EXP.ANES.I ---
[facility] Anesthesia Record Part I Anesthesia Record I Intake, IV Amount: 1,100 Estimated blood loss (mL): 10 Urine output (mL): 100 Blood Pressure: 138/75 SaO2: 93 Pulse Rate: 76 Respiratory Rate: 12 Temperature: 98 F Patient is:: Drowsy and Stable Stable to PACU at:: 13:21
--- NOTE | 2022-08-29 13:27 | XR_ITS ---
FINAL REPORT CLINICAL HISTORY: order, POST OP COMPARISON: 08/09/2022 FINDINGS: Two views of the right foot were obtained. There are postoperative changes from external fixation of the foot. Hardware largely obscures the hind foot. Severely comminuted fracture noted involving the hindfoot, in particular the cuboid and navicular bones. IMPRESSION: External fixation device placed for comminuted fracture of the hindfoot. Reviewed, Interpreted and Dictated by Deepa Marques MD Transcribed by Kati Lamas Authenticated and [facility]
--- NOTE | 2022-08-29 13:27 | XR_ITS ---
FINAL REPORT CLINICAL HISTORY: md order, postop changes right ankle COMPARISON: 08/09/2022 FINDINGS: Three views of the right ankle demonstrate external fixation device obscuring prone detail. Intramedullary kj of the distal tibia extends to the ankle and subtalar joints. There is a mildly comminuted fracture at the tip of the tibial kj involving the distal tibial shaft. IMPRESSION: Placement of intramedullary kj through the tibia, ankle joint, and subtalar joint with new fracture of the tibial shaft at the proximal intramedullary kj margin. Postoperative ORIF changes for comminuted hindfoot fracture. Reviewed, Interpreted and Dictated by Deepa Marques MD Transcribed by Kati Lamas Authenticated and [facility]
[2022-08-29 13:28] LABS: Microscopic,Cath URINE MICROSCOPIC (MICROSCOPIC)
[2022-08-29 13:37] LABS: Appearance,Urine/Cath CLEAR (Clear); Bilirubin,Cath Negative (Negative); Blood, Urine/Cath Negative (Negative); Color,Urine/Cath YELLOW (Yellow); Glucose,Urine/Cath (UA) Negative (Negative); Ketones,Urine/Cath TRACE (Negative); Leukocyte Esterase,Cath Negative (Negative); Nitrate,Cath Negative (Negative); Protein,Urine/Cath Negative (Negative); Specific Gravity, Urine/Cath 1.025 (1.005-1.030); Urobilinogen,Cath 0.2 EU/dl (0.2)
[2022-08-29 13:50] LABS: Bacteria,Urine/Cath TRACE /lpf; CA Oxalate Crystals,Ur/Cath 2+ /lpf; Squamous Epithelial Ur./Cath Occasional #/hpf (0-5)
[2022-08-29 13:54] LABS: POC Glucose,Bedside 102 (70-110)
--- NOTE | 2022-08-29 14:07 | SUR.PHASEI ---
1400- pt having pain in right shoulder possibly due to being positioned. Dr. garvin at bedside assessing pt. ordered to apply ice at this time. Medications per MAR were given. no further orders at this time 1410- [facility] 1412- pt left in stable condition with norma aguilar. All dressings cdi, vss, polar pack applied and ice pack applied to shoulder. Bed in lowest position with side rails up. Family at bedside
--- NOTE | 2022-08-29 14:18 | EXP.OP.NOTE ---
Date of procedure: 08/29/22 Pre-op Diagnosis:: Right Charcot neuroarthroplasty Right navicular, talus, calcaneus fractures Right ankle instability Right foot/ankle synovitis Right peroneal tendonitis Post-op Diagnosis:: Same Procedure performed:: Right foot Charcot reconstruction Right tibiotalocalcaneal arthrodesis Application of multiplane external fixation device () Excision of navicular fracture fragment Peroneal tendon debridement Ankle synovectomy Partial excision right tarsal (36164) Right tendo Achilles lengthening () Large bone allograft () Synovectomy tarsometatarsal/intertarsal joint () Open bone biopsy () Application of amniotic graft Surgeon:: Aure Bee DPM WATER PUMP SERVICER:: Vasu Harrison Anesthesia: GETA and regional (R popliteal nerve block) Estimated blood loss (mL): 40 Clinical Note:: 56M DM Charcot who initially fractured right foot in Mar and 04/25/22, noted on x-ray. She has subsequently been treated NWB in below knee splint and fracture boot. Patient has non-union with Charcot changes and fracture fragmentations of navicular, talus and calcaneus. CT, MRI and x-rays reviewed and discussed which showed collapse of the navicular with continued fracture changes consistent with Charcot. Other treatment has included modification of activity, immobilization in fracture boot, compression stockings, lymphedema pumps, RICE protocol, bone stimulator and sugar management. I had a long discussion with the patient about the etiology and treatment of Charcot foot.? I explained how her diabetes and peripheral neuropathy have contributed to this.? We also had a long discussion about her hemoglobin A1c of 8.1 and her poor sugar control. I explained that it is imperative that she gets her sugar back down, with a goal of 7.0-7.5. Patient does not currently smoke. She does have visual changes. We discussed the progression of Charcot and how that puts her at high risk for medial arch collapse, foot deformities, ulceration, infection leading to amputation, loss of digits, part of the foot or even the leg.? She verbalizes understanding. The patient understands post op she will be NWB. She also understands that she will need to have bracing and physical therapy. She will need DM shoes. After a long discussion with the patient in regards to the conservative versus surgical treatment for the Charcot deformity, the patient has elected to proceed with surgery as she continues to have pain and worsening symptoms affecting daily activities. The patient has been instructed on the planned procedure, all risk versus benefits of the procedure discussed.? We have discussed ORIF of the navicular, talus and calcaneal fractures as well as Charcot midfoot reconstruction and ancillary procedures including but not limited to osteotomy, arthrodesis, ankle scope, midfoot/hindfoot stabilization, tendo Achilles lengthening and application of external fixation device.? These risks include but are not limited to: bleeding, infection, nerve and blood vessel damage, wound complications, need for further surgery, delay in healing of soft tissue or bone, failure of bones to heal, non-union, mal-union, failure of the implant, broken pins, over lengthening of the tendon, recurrence of deformity, progression of deformity, prolonged pain and recovery, prolonged swelling, CRPS/RSD, DVT/PE, anesthetic complications and even . No guarantees were given. All questions fully answered. The patient verbalized understanding and agreed to proceed with surgery. Written consent was obtained. Operative findings:: Right foot Charcot deformity with fractures of the navicular, talus and calcaneus. Bone consistent with Charcot: Soft and irregular with some areas of sclerotic nonviable bone. Navicular bone was soft and crumbly and the fracture fragment was sent as a bone biopsy to pathology. Ankle and subtalar joint had synovitis. Prior peroneal tendon tear healed with fibrotic sca
--- NOTE | 2022-08-29 14:34 | EXP.HP ---
History of Present Illness *Admission Date: 08/29/22 *Reason for visit:: Chief complaint: Right foot pain *History of present illness: This is a 56-year-old female that [facility] to [facility] for right Charcot foot surgical procedure. She reports right foot pain, edema and deformity since March 2022. She was referred to her design analyst who has attempted multiple conservative modalities to assist with her pain and symptomatology. Eventually arthrodesis was recommended and the patient consented to surgical procedure. This afternoon she underwent right Charcot foot reconstruction, right tibial talocalcaneal arthrodesis and application of multiplane external fixation device. She is currently postoperative on the floor reporting adequate pain control. She denies chest pain, dyspnea or palpitations. She reports no associated confusion, hallucinations or unusual headaches. Nursing staff are in the room requiring postoperative vitals and positioning her right foot cooling device. [facility] Medical History Allergic rhinitis Anxiety and depression Asthma delivery delivered Diabetes Dizziness Improved, denies further syncope. Positive tilt table test. BP dropped to 90/30 after 15 minutes with minimal compensatory tachycardia. Amitriptyline, furosemide, spironolactone have been discontinued with symptomatic improvement. She takes furosemide as needed only. Dyspnea Dyspnea on exertion Encounter for pre-operative cardiovascular clearance HLD (hyperlipidemia) HTN (hypertension) Left foot pain Migraine headache Neuropathy Nonunion of joint fusion Sprain of anterior talofibular ligament of left ankle Tear of peroneal tendon Surgical History H/O eye surgery H/O: hysterectomy S/P carpal tunnel release S/P cholecystectomy Status post ankle fusion Status post surgical manipulation of ankle joint Family History Other Cancer Coronary artery disease Diabetes Hypertension Social History Smoking Status: Never smoker second hand exposure: No alcohol intake: never substance use type: denies use current occupational status: retired Travel in the last 8 weeks: None household members: spouse 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 occupational exposures/hazards: No caffeine: Yes Review of Systems Review of Systems Review of systems:: pertinent systems reviewed and negative unless documented below *Cardiovascular Cardiovascular: Denies chest pain, Denies dyspnea and Denies palpitations *Respiratory Respiratory: Denies dyspnea *Gastrointestinal Gastrointestinal: Denies nausea and Denies vomiting Endocrine Endocrine: Denies palpitations Meds Home Medications and Allergies Home Medications Medication Instructions Recorded Confirmed Type montelukast 10 mg tablet 10 mg PO HS allergies 30 days ##30 06/04/17 08/29/22 History pantoprazole 40 mg tablet,delayed 40 mg PO HS Acid reflux 04/28/20 08/29/22 History release metformin 500 mg tablet,extended 500 mg PO BID Diabetes 09/22/20 08/29/22 History release 24 hr metoprolol succinate 50 mg 50 mg PO HS High blood pressure 09/22/20 08/29/22 History tablet,extended release 24 hr diphenhydramine 25 1 tab PO HS PRN Itching 06/28/21 08/29/22 History mg-acetaminophen 500 mg tablet (Tylenol PM Extra Strength) furosemide 40 mg tablet 40 mg PO DAILY PRN Edema 01/04/22 08/29/22 History insulin NPH-regular 70-30 U-100 65 unit (0.65 mL) SQ BID Diabetes 06/13/22 08/29/22 Rx insulin 100 unit/mL subcutaneous 30 days #39 mL pen duloxetine 60 mg capsule,delayed 60 mg PO DAILY Pain 08/09/22 08/29/22 History release pregabalin 150 mg capsule 150 mg PO TID pain #90 caps 08/09/22 08/29/22 Rx albuterol sulfate 90 mc
--- NOTE | 2022-08-29 15:06 | EXP.ORTH.CON ---
History of Present Illness *Admission Date: 08/29/22 *Reason for visit:: Post op Charcot *History of present illness: This is a 56-year-old female that presents to [facility] for right Charcot foot surgical procedure. She reports right foot pain, edema and deformity since March 2022. Patient had successful Charcot reconstruction with TTC arthrodesis with Ex-Fix application. She was stable in PACU and admitted per the hospitalist team for 23-hour observation due to her extensive comorbidities and allergies, and postop pain control. [facility] Disclaimer: The information contained in this section may have been updated after the patient was seen, as this information can be updated by other users. Medical History Allergic rhinitis Anxiety and depression Asthma delivery delivered Diabetes Dizziness Dyspnea Dyspnea on exertion Encounter for pre-operative cardiovascular clearance HLD (hyperlipidemia) HTN (hypertension) Left foot pain Migraine headache Neuropathy Nonunion of joint fusion Sprain of anterior talofibular ligament of left ankle Tear of peroneal tendon Surgical History H/O eye surgery H/O: hysterectomy S/P carpal tunnel release S/P cholecystectomy Status post ankle fusion Status post surgical manipulation of ankle joint Family History Diabetes Coronary artery disease Cancer Hypertension Social History Smoking Status: Never smoker second hand exposure: No alcohol intake: never substance use type: denies use current occupational status: retired Travel in the last 8 weeks: None household members: spouse 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 occupational 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/hazards: No caffeine: Yes Review of Systems Review of Systems Review of systems:: pertinent systems reviewed and negative unless documented below Constitutional Constitutional: Reports system reviewed and no additional complaints, except as documented Eyes Eyes: Reports system reviewed and no additional complaints, except as documented ENT Ears, Nose, Mouth, and Throat: Reports system reviewed and no additional complaints, except as documented *Cardiovascular Cardiovascular: Reports system reviewed and no additional complaints, except as documented and Reports leg edema *Respiratory Respiratory: Reports system reviewed and no additional complaints, except as documented *Gastrointestinal Gastrointestinal: Reports system reviewed and no additional complaints, except as documented *Genitourinary Genitourinary: Reports system reviewed and no additional complaints, except as documented *Musculoskeletal Musculoskeletal: Reports system reviewed and no additional complaints, except as documented and Reports limited range of motion (right shoulder) Integumentary/Breasts Skin/Breast: Reports system reviewed and no additional complaints, except as documented *Neurologic Neurologic: Reports system reviewed and no additional complaints, except as documented and Reports paresthesias Psychiatric Psychiatric: Reports system reviewed and no additional complaints, except as documented Endocrine Endocrine: Reports system reviewed and no additional complaints, except as documented Hematologic/Lymphatic Hematologic/Lymphatic: Reports system reviewed and no additional complaints, except as documented Allergic/Immunologic Allergic/Immunologic: Reports system reviewed and no additional complaints, except as documented Meds Home Medications and Allergies Home Medications Medication Instructions Recorded Confirmed Type montelukast 10 mg tablet 10 mg PO HS allergies 30 days ##30 06/04/17 08/29/22 History pantoprazole 40 mg tablet,delayed 40 mg PO HS Acid reflux 04/28/20 08/29/22 History release metformin 500 m
--- NOTE | 2022-08-29 17:30 | PC.NURSE ---
Pt has c/o discomfort to RLE and RUE. Pain rating of 5 at this time. Medications administered per jun. Polar pack under (R) knee. Ice pack to (R) arm at times. VSS. Pt has tolerated dinner. Call light within reach.
[2022-08-29 20:33] LABS: POC Glucose,Bedside 300 (70-110)
[2022-08-30] VITALS: BP 132/61; PULSE 78; RESP 16; TEMP 36.8; O2SAT 94
[2022-08-30 04:00] VITALS: BP 111/59; PULSE 77; RESP 18; TEMP 36.6; O2SAT 95; BMI 45.0
--- NOTE | 2022-08-30 04:06 | PC.NURSE ---
NO ACUTE CHANGES THIS SHIFT. PT HAS RESTED WELL. HAS C/O PAIN IN THE RIGHT SHOULDER. MEDICATED PER JUN. VSS. POLAR PACK REMAINS IN PLACE TO RIGHT KNEE. CALL GREER WITHIN REACH.
[2022-08-30 05:31] LABS: POC Glucose,Bedside 180 (70-110)
[2022-08-30 06:26] LABS: Basophils % 0.3 % (0.1-2.0); Eosinophils # 0.1 K/mm3 (0.0-0.4); Eosinophils % 1.5 % (0.1-12.0); Hematocrit 34.9 % (37.0-47.0); Hemoglobin 11.4 g/dL (12.2-16.2); Lymphocytes # 2.2 K/mm3 (0.7-4.5); Lymphocytes % 23.7 % (10-50); Mean Corpuscular HGB Conc 32.7 g/dL (31.8-35.4); Mean Corpuscular Hemoglobin 30.4 pg (27.0-31.2); Mean Corpuscular Volume 92.9 fl (81-99); Mean Platelet Volume 9.1 fl (7.4-10.4); Monocytes # 0.5 K/mm3 (0.1-1.0); Monocytes % 5.9 % (1.7-9.3); Neutrophils # 6.3 K/mm3 (1.8-7.8); Neutrophils % 68.7 % (37.0-80.0); Platelet Count 228 K/mm3 (142-424); Red Blood Count 3.75 M/mm3 (4.20-5.40); Red Cell Distribution Width 14.7 % (11.5-17.5); White Blood Count 9.2 K/mm3 (4.8-10.8)
[2022-08-30 06:37] LABS: Alanine Aminotransferase 20 U/L (12-78); Albumin Level 2.9 g/dl (3.5-5.0); Alkaline Phosphatase 85 U/L (38-126); Anion Gap 14.2 mEq/L (5-15); Aspartate Amino Transferase 70 U/L (14-36); Bilirubin,Total 0.3 mg/dl (0.2-1.3); Blood Urea Nitrogen 23 mg/dl (7-17); Calcium 7.1 mg/dl (8.4-10.2); Carbon Dioxide 23 mmol/L (22.0-30.0); Chloride 102 mmol/L (98-107); Creatinine Clearance Estimated 37 mL/min (50-200); Estimated Glomerular Filt Rate 36 ml/min (>60); GFR (African American) 44 ML/MIN (>60); Globulin 2.8 g/dL (1.3-3.2); Glucose 182 mg/dl (74-100); Potassium 4.2 mmoL/L (3.5-5.1); Sodium 135 mmol/L (136-145); Total Protein,Serum 5.7 g/dl (6.3-8.2)
[2022-08-30 07:10] LABS: Magnesium 2.1 mg/dl (1.6-2.3)
--- NOTE | 2022-08-30 07:46 | P.PNANES_ITS ---
[facility] Anesthesia Record Part II Anesthesia Record Part II Discharge Time: 14:11 Destination: Second Floor PACU nurse assessment reviewed?: Yes Patient Condition:: Good Anesthesia Complications:: None Swallowing reflex intact?: Yes Cyanosis?: No Blood Pressure: 159/81 Pulse Rate: 73 Temperature: 98.1 F Mental Status: Alert & Oriented Pain level:: 6 Nausea and/or vomitting:: None Intake, IV Amount: 0
[2022-08-30 07:47] VITALS: BP 159/81; PULSE 73; TEMP 36.7
[2022-08-30 08:00] VITALS: BP 107/59; PULSE 74; RESP 16; TEMP 36.8; O2SAT 95
--- NOTE | 2022-08-30 08:36 | EXP.ORTH.PN ---
Subjective *Date: 08/30/22 *Time: 08:36 Interval history: Patient resting comfortably at the bedside. Denies pain. Has dressing and polar pack intact to the right lower extremity. Ortho Exam (Inpt) Vital signs and Labs for Last 24 Hours: Temp Pulse Resp BP Pulse Ox 98.3 F 74 16 107/59 L 95 08/30/22 08:00 08/30/22 08:00 08/30/22 08:00 08/30/22 08:00 08/30/22 08:00 Laboratory Results - last 24 hr 08/29/22 06:42: POC Glucose 78 08/29/22 08:00: Urine Color Yellow, Urine Appearance Clear, Urine pH 6.0, Ur Specific [place] 1.025, Urine Protein Negative, Urine Glucose (UA) Negative, Urine Ketones Trace, Urine Blood Negative, Urine Nitrate Negative, Urine Bilirubin Negative, Urine Urobilinogen 0.2, Ur Leukocyte Esterase Negative, Urine RBC None, Urine WBC None, Ur Squamous Epith Cells Occasional, Calcium Oxalate Crystal 2+, Urine Bacteria Trace 08/29/22 09:57: POC Glucose 80 08/29/22 13:47: POC Glucose 102 08/29/22 20:22: POC Glucose 300 H 08/30/22 05:22: POC Glucose 180 H 08/30/22 05:58: Magnesium 2.1 08/30/22 05:58: WBC 9.2, RBC 3.75 L, Hgb 11.4 L, Hct 34.9 L, MCV 92.9, MCH 30.4, MCHC 32.7, RDW 14.7, Plt Count 228, MPV 9.1, Neut % (Auto) 68.7, Lymph % (Auto) 23.7, [place] % (Auto) 5.9, Eos % (Auto) 1.5, Baso % (Auto) 0.3, Neut # (Auto) 6.3, Lymph # (Auto) 2.2, [place] # (Auto) 0.5, Eos # (Auto) 0.1, Baso # (Auto) 0.0 08/30/22 05:58: Sodium 135 L, Potassium 4.2, Chloride 102, Carbon Dioxide 23, Anion Gap 14.2, BUN 23 H, Creatinine 1.50 H, Estimated Creat Clear 37, Estimated GFR 36 L, Est GFR ( Amer) 44 L, Glucose 182 H, Calcium 7.1 L, Total Bilirubin 0.3, AST 70 H, ALT 20, Alkaline Phosphatase 85, Total Protein 5.7 L, Albumin 2.9 L, Globulin 2.8, Albumin/Globulin Ratio 1.0 L Temp Pulse Resp BP Pulse Ox 98.1 F 73 14 159/81 H 96 08/29/22 14:11 08/29/22 14:11 08/29/22 14:11 08/29/22 14:11 08/29/22 14:11 Laboratory Results - last 24 hr 08/29/22 06:15: SARS-CoV-2 (PCR) Not detected, Influenza A Untype (PCR) Not detected, Influenza Type B (PCR) Not detected 08/29/22 06:42: POC Glucose 78 08/29/22 08:00: Urine Color Yellow, Urine Appearance Clear, Urine pH 6.0, Ur Specific [place] 1.025, Urine Protein Negative, Urine Glucose (UA) Negative, Urine Ketones Trace, Urine Blood Negative, Urine Nitrate Negative, Urine Bilirubin Negative, Urine Urobilinogen 0.2, Ur Leukocyte Esterase Negative, Urine RBC None, Urine WBC None, Ur Squamous Epith Cells Occasional, Calcium Oxalate Crystal 2+, Urine Bacteria Trace 08/29/22 09:57: POC Glucose 80 08/29/22 13:47: POC Glucose 102 I & O for Labs for Last 24 Hours: Intake & Output 08/27/22 08/28/22 08/29/22 08/30/22 11:59 11:59 11:59 11:59 Intake Total 1870 / 1870 Output Total 800 / 800 Balance 1070 / 1070 Weight 255 lb 8 oz 270 lb 3 oz Intake & Output 08/27/22 08/28/22 08/29/22 08/30/22 11:59 11:59 11:59 11:59 Intake Total 1100 / 1100 Output Total 400 / 400 Balance 700 / 700 Weight 255 lb 8 oz Constitutional: Present no acute distress and obese Head: Present normocephalic Neck: Present normal inspection Respiratory: Present normal respiratory effort Cardiac: Present posterior tibial pulses present and pedal pulses present GI: Present soft Rectal (female): Present deferred (female): Present deferred Extremities: Present normal inspection, normal capillary refill and edema (RLE) Skin: Present intact Comment:: Sutures and dressing applied to the right lower extremity over surgical site. External fixation device intact to right lower extremity. Neuro: Present Motor Function Intact, oriented x 3 and moves all extremities Shoulder/Upper Arm: right: tenderness (positional right shoulder pain) Ankle: right: decreased ROM (secondary to TTC fusion with ex fix application) Assessment and Plan *Assessment and plan (1) Status post foot surgery: Status: Acute Category: Surgical Code(s): Z98.890 - Other specified postprocedural
--- NOTE | 2022-08-30 08:46 | EXP.DC.SUM ---
General Admission date:: 08/29/22 Discharge date: 08/30/22 HPI HPI HPI: This is a 56-year-old female that presents to [facility] for right Charcot foot surgical procedure. She reports right foot pain, edema and deformity since March 2022. She was referred to her security installation technician who has attempted multiple conservative modalities to assist with her pain and symptomatology. Eventually arthrodesis was recommended and the patient consented to surgical procedure. This afternoon she underwent right Charcot foot reconstruction, right tibial talocalcaneal arthrodesis and application of multiplane external fixation device. She is currently postoperative on the floor reporting adequate pain control. She denies chest pain, dyspnea or palpitations. She reports no associated confusion, hallucinations or unusual headaches. Nursing staff are in the room requiring postoperative vitals and positioning her right foot cooling device. Hospital Course Hospital Course Hospital Course: The patient was admitted to the medical surgical unit postoperatively from her right ankle arthrodesis with orthopedic device and cooling appliance. Postoperative pain control was provided. The patient reported no acute events overnight and nursing staff identified normal vitals. Her morning labs are stable. Podiatry evaluated the patient prior to discharge and reviewed postoperative course, home education and established follow-up appointment. The patient identified improvement and inquired about discharge home to follow-up with her security installation technician and PCP. She voiced understanding concerning fall precautions and not to drive while taking narcotics. We discussed DVT prevention and she reports previous Lovenox prescription. We discussed [place] [employer] April 2022 publication identifying aspirin 81 mg twice daily until ambulatory. I spent 35 minutes in [id number] time with the patient and nursing staff concerning the discharge process. We discussed the admitting diagnoses and hospital course. We discussed identified improvement and the patient's desire to be discharged. We reviewed inpatient studies and imaging. The patient voiced understanding on the importance of follow-up with her primary care provider and specialist(s). The patient plans to be compliant with the medication regimen prescribed and follow-up appointments. She understands that she can return to the emergency department with any sudden changes or concerns. Exam Data for Last 24 hours Vital signs and Labs for Last 24 Hours: Temp Pulse Resp BP Pulse Ox 98.3 F 74 16 107/59 L 95 08/30/22 08:00 08/30/22 08:00 08/30/22 08:00 08/30/22 08:00 08/30/22 08:00 Laboratory Results - last 24 hr 08/29/22 06:42: POC Glucose 78 08/29/22 08:00: Urine Color Yellow, Urine Appearance Clear, Urine pH 6.0, Ur Specific [place] 1.025, Urine Protein Negative, Urine Glucose (UA) Negative, Urine Ketones Trace, Urine Blood Negative, Urine Nitrate Negative, Urine Bilirubin Negative, Urine Urobilinogen 0.2, Ur Leukocyte Esterase Negative, Urine RBC None, Urine WBC None, Ur Squamous Epith Cells Occasional, Calcium Oxalate Crystal 2+, Urine Bacteria Trace 08/29/22 09:57: POC Glucose 80 08/29/22 13:47: POC Glucose 102 08/29/22 20:22: POC Glucose 300 H 08/30/22 05:22: POC Glucose 180 H 08/30/22 05:58: Magnesium 2.1 08/30/22 05:58: WBC 9.2, RBC 3.75 L, Hgb 11.4 L, Hct 34.9 L, MCV 92.9, MCH 30.4, MCHC 32.7, RDW 14.7, Plt Count 228, MPV 9.1, Neut % (Auto) 68.7, Lymph % (Auto) 23.7, [place] % (Auto) 5.9, Eos % (Auto) 1.5, Baso % (Auto) 0.3, Neut # (Auto) 6.3, Lymph # (Auto) 2.2, [place] # (Auto) 0.5, Eos # (Auto) 0.1, Baso # (Auto) 0.0 08/30/22 05:58: Sodium 135 L, Potassium 4.2, Chloride 102, Carbon Dioxide 23, Anion Gap 14.2, BUN 23 H, Creatinine 1.50 H, Estimated Creat Clear 37, Estimated GFR 36 L, Est GFR ( Amer) 44 L, Glucose 182 H, Calcium 7.1 L, Total Bilirubin 0.3, AST 70 H, ALT 20, Alkaline Phosphata
--- NOTE | 2022-08-30 09:08 | HMH.PHAINT1 ---
Pharmacy Intervention Comments: DISCHARGE COUNSELING COMPLETED. PATIENT WAS NOT STARTING ANY NEW MEDICATIONS AND WAS INFORMED TO STOP TAKING DOXYCYCLINE. PATIENT HAD NO QUESTIONS.
--- NOTE | 2022-08-30 09:50 | SW/DCPLANNER ---
I spoke with this patient regarding plans once medically stable for discharge. Patient resides at home with her and prefers to return home once medically stable for discharge. Patient stated that she does have all DME at home. Patient has no further needs/questions at this time. The plan for this patient is to return home today. PT evaluated patient and stated that patient is safe to return home.
--- NOTE | 2022-08-30 10:31 | HMH.PTEV ---
Physical Therapy Evaluation Rehab PT IP Evaluation Start: 08/29/22 13:32 Freq: ONCE Status: Active Protocol: Document 08/30/22 09:40 PHOESTELLA (Rec: 08/30/22 10:31 PHOESTELLA [id number]) Subjective/History History History 56 yowf adm to [facility] for OR with R ankle Charcot reconstruction with ex-fix placed. She reports she was independent with all mobility prior to adm, she lives with , has a ramp to enter the home, and has all necessary equipment needed already at home. Subjective Subjective Pt reports pain in her R SHLD after OR, but none currently in her R LE. Rehab PT IP Eval Objective Appearance Patient Behavior Appropriate Patient Orientation Person,Place,Time Difficulty following instructions none Speech Pattern Clear Ambulation Patient Able to Ambulate No Balance Ability to Arise Able, uses arms to help Sitting Balance Steady, safe Standing Balance Steady, wide stance Dynamic Sitting Balance Ability Good Dynamic Standing Balance Ability Good Transfers Bed Transfer Ability Independent Chair Transfer Ability Minimal x 1 (25% assist) Sit to Stand Bed Transfer Ability Minimal x 1 (25% assist) Sit to Stand Chair Transfer Ability Minimal x 1 (25% assist) Rehab PT IP prob,goals,plan Problems Date of Evaluation: 08/30/22 PT IP Problems Bed Mobility,Transfers Rehab Potential Rehab Potential Good Plan PT Intervention Plan Bed Mobility,Transfers,Self care,Therapeutic Exercise PT Plan Frequency BID Duration LOS Discharge Goals Sit to Stand Chair Transfer Ability Contact Guard/Hand Hold Discharge Plan PT Discharge Plan Pt is appropriate to return home once medically stable with current assistance available. G -code Required No Eval Complexity Eval Charge Codes 94903 - Moderate Complexity PHYSICIAN CERTIFICATION: I certify the specified therapy services for Ewa Guallpa are required, authorized, and reviewed every 30 days.
[2022-08-30 10:54] LABS: POC Glucose,Bedside 189 (70-110)
[2022-08-30 10:56] VITALS: BP 96/44; PULSE 71; RESP 17; TEMP 36.6; O2SAT 96
--- NOTE | 2022-08-31 13:44 | CARE MANAGER ---
Contacted patient related to hospital discharge. She states she is doing well. She has her prescriptions and follow up appointments. Denies any questions or concerns. DANIEL Morales
== END 2022-08-30 11:40 | disposition home or self-care (01) ==
LOC: 2ND 08:52
PROVIDERS: Podiatrist; Admitting Provider Family Medicine; PCP Nurse Practitioner Family; Visit Provider Family Medicine
PROC: (CPT 28730; principal; 2022-08-29 07:30)
DX: M14.671 Charcot's joint, right ankle and foot (principal); M77.51 Other enthesopathy of right foot and ankle; E11.621 Type 2 diabetes mellitus with foot ulcer; Z20.822 Contact with and (suspected) exposure to COVID-19; I10 Essential (primary) hypertension; L97.511 Non-pressure chronic ulcer of other part of right foot limited to breakdown of skin; E66.01 Morbid (severe) obesity due to excess calories; S92.021K Displaced fracture of anterior process of right calcaneus, subsequent encounter for fracture with nonunion; S92.251K Displaced fracture of navicular [scaphoid] of right foot, subsequent encounter for fracture with nonunion; M76.71 Peroneal tendinitis, right leg; Z68.42 Body mass index [BMI] 45.0-49.9, adult; Z79.899 Other long term (current) drug therapy; Z79.890 Hormone replacement therapy; Z79.4 Long term (current) use of insulin; Y83.1 Surgical operation with implant of artificial internal device as the cause of abnormal reaction of the patient, or of later complication, without mention of misadventure at the time of the procedure
CPT/HCPCS: 28730; 28122; 27685; 20692; 15275; 36415; 73610; 73620; 80053; 81001; 82962; 83036; 83735; 85025; 96374; 97162; C1713; C1734; C1762; C1776; C9803; G0378; J0131; J2405; Q4211; U0003; U0005

== ENCOUNTER → 2022-09-20 12:49 | Outpatient (CLI) | payer BC, SELFPAY ==
--- NOTE | 2022-09-20 12:51 | XR_ITS ---
FINAL REPORT CLINICAL HISTORY: lower extremity pain, follow-up COMPARISON: 08/29/2022 FINDINGS: RIGHT TIBIA/FIBULA 2 views were obtained. The external fixation device is unchanged in position. There is an IM kj in the distal portion of the tibia which extends into the mortise and subtalar joints. As best can be determined, bony fragments are unchanged in position. IMPRESSION: Stable postoperative changes. Reviewed, Interpreted and Dictated by Remberto Bose MD Transcribed by Alyssa Pickett Authenticated and [facility]
== END ==
PROVIDERS: PCP Nurse Practitioner Family; Visit Provider Podiatrist
DX: M79.604 Pain in right leg (principal); Z96.7 Presence of other bone and tendon implants
CPT/HCPCS: 73590

== ENCOUNTER 2022-09-23 15:34 | Emergency (ER) | payer BC, SELFPAY ==
[2022-09-23 15:36] VITALS: BP 108/53; PULSE 86; RESP 18; TEMP 36.7; O2SAT 98; BMI 39.9
--- NOTE | 2022-09-23 15:42 | XR_ITS ---
PROCEDURE INFORMATION: Exam: XR Right Tibia and Fibula Exam date and time: 09/23/2022 3:56 PM Age: 56 years old Clinical indication: Pain; Ankle; Right; Additional info: Pain, ex fix in place TECHNIQUE: Imaging protocol: Radiologic exam of the right tibia and fibula. Views: 2 views. COMPARISON: CR XR TIBIA FIBULA RT 2V 09/20/2022 12:52 PM FINDINGS: Tubes, catheters and devices: External fixation device obscuring visualization of tibia, fibula. Bones/joints: ORIF of distal mid to distal tibia. Stable alignment. Soft tissues: Normal. IMPRESSION: Stable alignment status post ORIF of tibia.
--- NOTE | 2022-09-23 15:42 | XR_ITS ---
PROCEDURE INFORMATION: Exam: XR Right Ankle Exam date and time: 09/23/2022 3:56 PM Age: 56 years old Clinical indication: Pain; Right; Prior surgery; Surgery date: 3-7 days post-operative; Surgery type: A-fix in place for ankle surgery; Additional info: Pain, ex fix in place TECHNIQUE: Imaging protocol: Radiologic exam of the right ankle. Views: 3 or more views. COMPARISON: CR XR ANKLE RT MIN 3V 08/29/2022 1:30 PM FINDINGS: Tubes, catheters and devices: External fixation device obscuring detailed anatomic evaluation of tibia, fibula and ankle. ORIF of distal tibiotalar and talocalcaneal joint joints. Stable alignment. Bones/joints: See Tubes, catheters and devices finding. Soft tissues: Normal. IMPRESSION: Stable alignment.
--- NOTE | 2022-09-23 15:43 | HMH.EDGENADL ---
Discharge Plan Disposition Patient Disposition: Home, Self-Care Condition: Good Chief Complaint: Extremity Problem,Nontraumatic Prescriptions Prescriptions: No Action diphenhydramine-acetaminophen [Tylenol PM Extra Strength] 25-500 mg tablet 1 tab PO HS PRN (Reason: Itching) pantoprazole 40 mg tablet,delayed release (DR/EC) 40 mg PO HS metformin 500 mg tablet extended release 24 hr 500 mg PO BID Label Comments: TAKE 1 TABLET BY MOUTH TWICE DAILY metoprolol succinate 50 mg tablet extended release 24 hr 50 mg PO HS albuterol sulfate 90 mcg/actuation HFA aerosol inhaler 2 puff inhalation Q4-6H PRN (Reason: shortness of breath or wheezing) Qty: 8.5 0RF duloxetine 60 mg capsule,delayed release(DR/EC) 60 mg PO DAILY pregabalin 150 mg capsule 150 mg PO TID Qty: 90 1RF ketorolac 10 mg tablet 10 mg PO Q6H 5 Days Qty: 20 0RF cyclobenzaprine 5 mg tablet 5 mg PO BID PRN (Reason: muscle spasm) Qty: 30 2RF insulin NPH and regular human 100 unit/mL (70-30) insulin pen 65 unit SQ BID 30 Days Qty: 39 2RF montelukast 10 mg tablet 10 mg PO HS 90 Days Qty: 90 0RF (DME) BD Intradermal Bevel [place] 26 gauge x 3/8 needle See Rx Instructions .Route Qty: 100 0RF Rx Instructions: As directed or BID Januvia 100 mg tablet See Rx Instructions .ROUTE .COMPLEX Qty: 90 2RF Dose Instruction: TAKE 1 TABLET BY MOUTH EVERY DAY Rx Instructions: TAKE 1 TABLET BY MOUTH EVERY DAY furosemide 40 mg tablet 40 mg PO DAILY PRN (Reason: Edema) losartan 25 mg tablet 25 mg PO DAILY Rx Instructions: TAKE 1 TABLET BY MOUTH EVERY DAY buspirone 7.5 mg tablet 7.5 mg PO BID Rx Instructions: TAKE 1 TABLET BY MOUTH TWICE DAILY topiramate 100 mg tablet 150 mg PO HS fluticasone propionate [Flonase Allergy Relief] 50 mcg/actuation spray,suspension 2 spray intranasal DAILY Rx Instructions: administer into each nostril cholecalciferol (vitamin D3) 50 mcg (2,000 unit) capsule 50 mcg PO DAILY azelastine 205.5 mcg (0.15 %) spray,non-aerosol 2 spray intranasal HS Rx Instructions: administer into each nostril cholecalciferol (vitamin D3) 1,250 mcg (50,000 unit) tablet 1,250 mcg PO WEEKLY fluticasone furoate-vilanterol [Breo Ellipta] 100-25 mcg/dose blister with device 1 inh inhalation DAILY Trulicity 1.5 mg/0.5 mL pen injector 1.5 mg SQ WEEKLY Rx Instructions: INJECT 1 PREFILLED SYRINGE ONCE WEEKLY Vitamin C 100 mg Tablet 100 mg PO DAILY chromium 1,000 mcg Tablet 100 mcg PO DAILY vitamin E 268 mg (400 unit) Capsule 268 mg PO DAILY vitamin B complex Capsule 1 cap PO DAILY zinc 10 mg Tablet 10 mg PO DAILY magnesium Tablet 1 tab PO DAILY vitamin [id number] acid 0.5-1 mg Tablet 1 tab PO DAILY alpha lipoic acid 50 mg Tablet 50 mg PO DAILY simvastatin 40 mg tablet 40 mg PO HS estradiol 2 mg tablet 2 mg PO HS enoxaparin [Lovenox] 40 mg/0.4 mL syringe 40 mg SQ DAILY Rx Instructions: Self inject one dose daily into subq x 20 days Nurtec ODT 75 mg tablet,disintegrating 75 mg PO NEEDED PRN (Reason: migraine headache) doxycycline hyclate 100 mg capsule 100 mg PO BID Qty: 20 0RF tramadol 50 mg Tablet 50 mg PO Q4HP PRN (Reason: Mild To Moderate Pain) Qty: 30 0RF ondansetron 4 mg tablet,disintegrating 4 mg PO Q6H PRN (Reason: nausea and vomiting) Qty: 20 0RF Referrals Follow up/Referrals: Julio C Rogel APRN [Primary Care Provider] - See instructions Activity Restrictions/Add. Instructions Additional Instructions/Restrictions: You have been evaluated for wound check. There does not appear to be hardware failure or other abnormality on x-rays. Please follow-up with your inseam leveler as soon as available. Return to the emergency department at once for any new or worsening
[2022-09-23 16:00] VITALS: BP 140/73; PULSE 89; RESP 16; O2SAT 97
[2022-09-23 17:43] VITALS: BP 148/70; PULSE 69; RESP 16; O2SAT 99
[2022-09-23 18:01] VITALS: BP 121/36; PULSE 82; RESP 16; O2SAT 99
--- NOTE | 2022-09-23 18:04 | PC.NURSE ---
Unwrapped patient's dressing to RLE to evaluate skin and pin sites. sutures intact no obvious signs of infections to pin sites. Left upper pin appears to be broke off halo traction MD aware and at bs to evalaute. Dry dressing and panda applied as instructed by patient. Patient tolerated well.
[2022-09-23 18:28] VITALS: BP 149/75; PULSE 82; RESP 18; O2SAT 98
[2022-09-23 18:35] VITALS: BP 149/75; PULSE 83; RESP 16; TEMP 36.7; O2SAT 99
== END 2022-09-23 18:36 | disposition home or self-care (01) ==
PROVIDERS: Emergency Provider Emergency Medicine; PCP Nurse Practitioner Family
DX: G89.18 Other acute postprocedural pain (principal); M25.571 Pain in right ankle and joints of right foot; Y83.8 Other surgical procedures as the cause of abnormal reaction of the patient, or of later complication, without mention of misadventure at the time of the procedure
CPT/HCPCS: 73590; 73610; 96374; 99284

== ENCOUNTER → 2022-09-24 16:59 | Outpatient (CLI) | payer BC, SELFPAY ==
--- NOTE | 2022-09-24 17:11 | ECG_ITS ---
APPROVED REPORT Exam: Resting ECG HR:81 bpm ECG Measurements Heart Rate 81 AXES HI 176 P 17 QRSd 89 QRS -20 QT 369 T 14 QTc 406 Conclusion SINUS RHYTHM POSSIBLE ANTERIOR MYOCARDIAL INFARCTION , PROBABLY OLD [30 ms Q WAVE IN V3/V4, OR R < 0.2 mV IN V4] BORDERLINE ECG UNCONFIRMED REPORT Electronically signed by : Miles Lemon MD 09/27/2022 09:33:18
[2022-09-24 18:01] LABS: Chloride 104 mmol/L (98-107); Potassium 4.4 mmoL/L (3.5-5.1); Sodium 139 mmol/L (136-145)
[2022-09-24 18:04] LABS: Alanine Aminotransferase 15 U/L (12-78); Albumin Level 3.5 g/dl (3.5-5.0); Alkaline Phosphatase 112 U/L (38-126); Anion Gap 12.4 mEq/L (5-15); Aspartate Amino Transferase 23 U/L (14-36); Bilirubin,Total 0.3 mg/dl (0.2-1.3); Blood Urea Nitrogen 27 mg/dl (7-17); Carbon Dioxide 27 mmol/L (22.0-30.0); Estimated Glomerular Filt Rate 39 ml/min (>60); GFR (African American) 47 ML/MIN (>60); Globulin 3.5 g/dL (1.3-3.2)
[2022-09-24 18:05] LABS: Calcium 8.8 mg/dl (8.4-10.2); Glucose 114 mg/dl (74-100)
[2022-09-24 18:10] LABS: C-Reactive Protein 11.7 mg/L (0-4)
[2022-09-24 18:20] LABS: Basophils % 0.2 % (0.1-2.0); Eosinophils # 0.5 K/mm3 (0.0-0.4); Eosinophils % 4.2 % (0.1-12.0); Hematocrit 34.8 % (37.0-47.0); Hemoglobin 10.8 g/dL (12.2-16.2); Lymphocytes # 3.3 K/mm3 (0.7-4.5); Lymphocytes % 27.2 % (10-50); Mean Corpuscular HGB Conc 31.2 g/dL (31.8-35.4); Mean Corpuscular Hemoglobin 29.2 pg (27.0-31.2); Mean Corpuscular Volume 93.8 fl (81-99); Mean Platelet Volume 8.5 fl (7.4-10.4); Monocytes # 0.7 K/mm3 (0.1-1.0); Monocytes % 6.1 % (1.7-9.3); Neutrophils # 7.5 K/mm3 (1.8-7.8); Neutrophils % 62.3 % (37.0-80.0); Platelet Count 242 K/mm3 (142-424); Red Blood Count 3.71 M/mm3 (4.20-5.40); Red Cell Distribution Width 14.6 % (11.5-17.5); White Blood Count 12.1 K/mm3 (4.8-10.8)
[2022-09-24 19:15] LABS: Erythrocyte Sedimentation Rate 65 mm/hr (0-30)
== END ==
PROVIDERS: PCP Nurse Practitioner Family; Visit Provider Podiatrist
DX: E11.9 Type 2 diabetes mellitus without complications (principal); G62.9 Polyneuropathy, unspecified; Z48.89 Encounter for other specified surgical aftercare; Z01.818 Encounter for other preprocedural examination; Z79.4 Long term (current) use of insulin
CPT/HCPCS: 80053; 85025; 85651; 86140; 93005

== ENCOUNTER 2022-09-26 08:40 | Day surgery (SDC) | payer BC, SELFPAY ==
[2022-09-25 09:32] VITALS: BMI 39.9
[2022-09-26 09:22] VITALS: BP 132/69; PULSE 79; RESP 19; TEMP 36.4; O2SAT 98
[2022-09-26 09:41] LABS: POC Glucose,Bedside 85 (70-110)
--- NOTE | 2022-09-26 10:33 | P.PN_ITS ---
[facility] Disclaimer: The information contained in this section may have been updated after the patient was seen, as this information can be updated by other users. Medical History Allergic rhinitis Anxiety and depression Asthma delivery delivered Diabetes Dizziness Improved, denies further syncope. Positive tilt table test. BP dropped to 90/30 after 15 minutes with minimal compensatory tachycardia. Amitriptyline, furosemide, spironolactone have been discontinued with symptomatic improvement. She takes furosemide as needed only. Dyspnea Dyspnea on exertion Encounter for pre-operative cardiovascular clearance HLD (hyperlipidemia) HTN (hypertension) Left foot pain Migraine headache Neuropathy Nonunion of joint fusion Sprain of anterior talofibular ligament of left ankle Tear of peroneal tendon Surgical History H/O eye surgery H/O: hysterectomy S/P carpal tunnel release S/P cholecystectomy Status post ankle fusion Status post surgical manipulation of ankle joint Family History Other Cancer Coronary artery disease Diabetes Hypertension Social History (Updated 09/26/22 @ 09:21 by Codie Valdez RN) Smoking Status: Never smoker second hand exposure: No alcohol intake: never substance use type: denies use current occupational status: retired Travel in the last 8 weeks: None household members: spouse 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 occupational exposures/hazards: No caffeine: Yes [facility] Anesthesia Checklist Patient Identification Patient Identification: Arm Band Structural Data Admitted From: Home Planned Operative Procedure/s: Right Ex-Fix Removal, Hardware Removal, Wound Debridement Consent for Planned Operative Procedure(s) Verified: Yes Verified Documents: Surgical Consent and History and Physical NPO Status Verified Time NPO: 00:00 Additional verifications Anesthesia Reactions: No Hx Blood Transfusions: No Blood Transfusion Reaction: No Airway Assessment C-Spine Mobility Assessed: Yes TMJ Mobility Assessed: Yes Dentition: Good Dentition Neurological Assessment Level of Consciousness: Awake and Alert Anesthesia Plan Anesthesia Risk discussed: Yes Anesthesia Plan: Verified ASA Class: III Anesthesia Type: General w/block (Right Popliteal/Adductor Canal Nerve Block. Risks/Benefits explained. Pt verbalized understanding)
--- NOTE | 2022-09-26 14:15 | XR_ITS ---
FINAL REPORT CLINICAL HISTORY: Post op hardware removal COMPARISON: 09/20/2022 FINDINGS: RIGHT TIBIA/FIBULA 2 views were obtained. There are postoperative changes from arthrodesis. An IM kj of the tibia extends through the ankle and subtalar joint. Fixation screws are also noted extending from the calcaneus through the subtalar joint. There is a butterfly fracture fragment at the level of the proximal intramedullary kj involving the mid tibia. IMPRESSION: 1. Butterfly fracture fragment of the mid posterior tibia. 2. Hardware in place as above. Reviewed, Interpreted and Dictated by Deepa Marques MD Transcribed by Alyssa Pickett Authenticated and [facility]
[2022-09-26 14:30] VITALS: BP 130/68; PULSE 77; RESP 18; TEMP 36.1; O2SAT 95
--- NOTE | 2022-09-26 14:37 | EXP.OP.NOTE ---
Date of procedure: 09/26/22 Pre-op Diagnosis:: Right leg cellulitis Right external fixation device pin tract update Right Charcot Right anterior ankle wound Post-op Diagnosis:: Same Procedure performed:: Right external fixation device removal Right deep hardware (screw) removal Right ankle wound debridement Right ankle delayed primary closure Application of amniotic wound graft Surgeon:: Aure Bee DPM MANAGER WILLOW:: Jeffrey Sams Anesthesia: MAC and regional (Right popliteal nerve block) Estimated blood loss (mL): 20 Clinical Note:: 56-year-old diabetic female with Charcot s/p right Charcot reconstruction with TTC fusion and application of multiplanar external fixation device presents with worsening pin track infection and cellulitis to the right lower extremity.? Discussed doing an Ex-Fix adjustment with exchange of pins/wires.? However concern of worsening infection.? Discussed complications such as deep hardware infection including cellulitis and osteomyelitis.? Treatment options may include oral versus IV antibiotics, hardware removal, antibiotic spacer, below-knee amputation.? Due to the patient's long history of Charcot with diabetes and history of surgery with complication, my recommendation is remove the external fixation device to mitigate infection.? Plan to keep Ex-Fix for 3 months however the worsening infection is of concern enough to remove the Ex-Fix at this time.? Surgery risks were once again discussed with the patient including but not limited to nerve/blood vessel injury, infection, nerve complication, prolonged pain/swelling, recurrence of deformity, hardware failure, failure of bones to unite, delayed union/malunion, nonunion, need for further surgery in future, CRPS/RSD, complications from the anesthetic nerve block, anesthesia complications including .? Operative findings:: Edema and erythema noted to the ankle and proximal pin sites. No dominick purulence expressed. Some clear drainage from the proximal medial pin site, wound culture taken. Anterior ankle incision had eschar noted distally. 15 blade forceps used to sharply excisionally debride the wound full-thickness through skin subcu and deep fascia. No signs of infection noted. Wound edges were able to be reapproximated to the proximal central incision with Vicryl and skin mic. There was an opening left after delayed primary closure of 3.1 x 2.4 x 0.3cm, wound base 100% granular. Amniotic graft was used to cover the wound. Operative note:: On this date and time patient was deemed an appropriate surgical candidate. With informed consent signed, the patient was taken to the operating theater after regional nerve block by anesthesia the patient was positioned supine. MAC anesthesia was induced. No tourniquet used. Right removal of external fixation device: Edema and erythema noted to the proximal 4 pin sites. Clear drainage noted from proximal medial pin site. No dominick purulence, no malodor, no ascending cellulitis. The right lower extremity was prepped with betadine. A wrench was used to unscrew the frame. The frame was removed in total. All of the pins were removed without complication. Next a curette was used to curette and debride the pin sites. Fibrotic tissue and biofilm was removed. No purulence or other signs of infection noted to the foot or distal tibial pin sites. Pin site wounds were granular. All pin sites were cleansed with Betadine. Right leg hardware removal: Attention was directed to the proximal incision of the TTC nail. Incision was made full-thickness down to the level of the bone. The 4.5 mm proximal nail screw was removed without complication. No signs of deep infection. Incision was flushed with saline. Skin reapproximated with Vicryl and skin mic. Right anterior ankle wound debridement, delayed primary closure: Attention was directed to the anterior incision where intact eschar/scab noted distally. Utilizing a 15 blade and f
[2022-09-26 14:40] VITALS: BP 136/71; PULSE 77; RESP 17; O2SAT 95
[2022-09-26 14:50] VITALS: BP 138/71; PULSE 76; RESP 18; O2SAT 95
[2022-09-26 15:00] VITALS: BP 136/69; PULSE 79; RESP 17; O2SAT 96
--- NOTE | 2022-09-26 15:13 | SUR.PHASEII ---
pt reporting having a wheelchair, IS, and polar pack at home.
[2022-09-26 15:29] VITALS: TEMP 43
== END 2022-09-26 15:10 | disposition home or self-care (01) ==
PROVIDERS: PCP Nurse Practitioner Family; Visit Provider Podiatrist
PROC: (CPT 20694; principal; 2022-09-26 10:45)
DX: T84.69XA Infection and inflammatory reaction due to internal fixation device of other site, initial encounter (principal); M14.671 Charcot's joint, right ankle and foot; L03.115 Cellulitis of right lower limb; E11.9 Type 2 diabetes mellitus without complications; I10 Essential (primary) hypertension; Z79.899 Other long term (current) drug therapy; Z79.4 Long term (current) use of insulin; Y79.3 Surgical instruments, materials and orthopedic devices (including sutures) associated with adverse incidents
CPT/HCPCS: 20694; 11043; 15275; 73590; 82962; 87075; 87205; 96374; J0692; Q4211

== ENCOUNTER → 2022-10-18 07:34 | Outpatient (CLI) | payer BC, SELFPAY ==
--- NOTE | 2022-10-18 09:04 | XR_ITS ---
FINAL REPORT CLINICAL HISTORY: charcot foot sx 1 month ago, Pain in lower leg COMPARISON: 09/26/2022 FINDINGS: RIGHT TIBIA/FIBULA SERIES Two views of the right tibia/fibula were obtained. There are postoperative changes from an ankle arthrodesis with an intramedullary kj and multiple screws that remain in place. There is a fracture along the posterior cortex of the tibial diaphysis with butterfly fragment, that is stable. There is no soft tissue abnormality. IMPRESSION: Stable postoperative changes. Stable fracture of the posterior mid tibia. Reviewed, Interpreted and Dictated by Lai Pressley III, MD Transcribed by Dany Lucas Authenticated and [facility]
== END ==
PROVIDERS: PCP Emergency Medicine; Visit Provider Internal Medicine Pulmonary Disease
DX: R06.09 Other forms of dyspnea (principal); M79.661 Pain in right lower leg; Z98.890 Other specified postprocedural states
CPT/HCPCS: 73590; 94060; 94726; 94729

== ENCOUNTER 2022-10-25 10:46 | Emergency (ER) | payer BC, SELFPAY ==
[2022-10-25 10:46] VITALS: BP 129/66; PULSE 79; RESP 18; TEMP 36.9; O2SAT 97; BMI 39.9
--- NOTE | 2022-10-25 10:55 | XR_ITS ---
FINAL REPORT CLINICAL HISTORY: fall COMPARISON: 10/18/2022 FINDINGS: RIGHT ANKLE: Three views of the right ankle were obtained. When compared to the prior films of October 18 the patient has suffered an interval fracture of the shafts of the tibia and the fibula with slight lateral angulation of the fracture fragments. Surgical clips are once again noted overlying the medial and lateral soft tissues of the ankle. The appearance of the ankle fusion itself is not significantly changed. IMPRESSION: Since the most recent postoperative exam of October 18 the patient has suffered an interval fracture of the shafts of the mid to distal tibia and fibula with slight angulation of the fracture fragments laterally. Reviewed, Interpreted and Dictated by Lai Pressley III, MD Transcribed by Jaqueline Romo Authenticated and [facility]
--- NOTE | 2022-10-25 10:55 | XR_ITS ---
FINAL REPORT CLINICAL HISTORY: fall COMPARISON: 10/12/2022 FINDINGS: AP and lateral views of the right tibia and fibula: Two views of the right tibia and fibula visualize the proximal 2/3 of the right tibia and fibula. The most recent films had revealed an intramedullary kj placed through the distal tibia extending to approximately the mid shaft of the right tibia. On today's exam the tibial kj has been displaced and angulated laterally with relationship to the distal tibia. There is a fracture through the shaft of the distal tibia, slightly angulated laterally and minimally displaced. There is a nondisplaced fracture of the shaft of the fibula as well, slightly angulated laterally. IMPRESSION: Since the prior exam of October 12 the patient has a fracture through the intramedullary kj in the tibia, with lateral angulation of the fracture fragments. There is a fibular shaft fracture as well, also angulated laterally. Reviewed, Interpreted and Dictated by Lai Pressley III, MD Transcribed by Jaqueline Romo Authenticated and [facility]
--- NOTE | 2022-10-25 10:55 | XR_ITS ---
FINAL REPORT CLINICAL HISTORY: fall FINDINGS: RIGHT FOOT: Three views of the right foot were obtained. Prior films are available from October 18 which showed that the patient has undergone fusion of the rear foot and ankle. There are numerous chronic fragments noted involving the ankle and rear foot with multiple soft tissue calcifications that may represent posttraumatic change or possibly neuropathic osteoarthropathy. There are surgical clips overlying the soft tissues on the medial and lateral aspect of the foot. IMPRESSION: Since the prior films of October 18 the patient has sustained a fracture of the distal tibia and fibular shafts. The changes of chronic fragmentation in the rear foot and midfoot remain present, and most likely represent either posttraumatic change or a neuropathic osteoarthropathy. Reviewed, Interpreted and Dictated by Lai Pressley III, MD Transcribed by Jaqueline Romo Authenticated and [facility]
[2022-10-25 11:00] VITALS: BP 124/69; PULSE 77; O2SAT 99
--- NOTE | 2022-10-25 11:01 | PC.NURSE ---
Spouse at BS
--- NOTE | 2022-10-25 11:26 | PC.NURSE ---
Paged Dr. Cesar for Dr. Phelan
--- NOTE | 2022-10-25 11:30 | HMH.EDGENADL ---
Discharge Plan Disposition Chief Complaint: Extremity Injury, Lower Prescriptions Prescriptions: No Action pantoprazole 40 mg tablet,delayed release (DR/EC) 40 mg PO HS metformin 500 mg tablet extended release 24 hr 500 mg PO BID Patient Comments: TAKE 1 TABLET BY MOUTH TWICE DAILY metoprolol succinate 50 mg tablet extended release 24 hr 50 mg PO HS albuterol sulfate 90 mcg/actuation HFA aerosol inhaler 2 puff inhalation Q4-6H PRN (Reason: shortness of breath or wheezing) Qty: 8.5 0RF duloxetine 60 mg capsule,delayed release(DR/EC) 60 mg PO DAILY cyclobenzaprine 5 mg tablet 5 mg PO BID PRN (Reason: muscle spasm) Qty: 30 2RF azelastine 205.5 mcg (0.15 %) spray,non-aerosol 2 spray intranasal HS Qty: 30 1RF Rx Instructions: administer into each nostril cholecalciferol (vitamin D3) 1,250 mcg (50,000 unit) tablet 1,250 mcg PO WEEKLY Qty: 14 2RF cholecalciferol (vitamin D3) 50 mcg (2,000 unit) capsule 50 mcg PO DAILY Qty: 90 1RF pregabalin 150 mg capsule 150 mg PO TID Qty: 90 2RF montelukast 10 mg tablet 10 mg PO HS 90 Days Qty: 90 0RF clindamycin HCl 300 mg capsule 300 mg PO TID 14 Days Qty: 42 0RF Rx Instructions: administer with large glass of water Trulicity 1.5 mg/0.5 mL pen injector See Rx Instructions .ROUTE .COMPLEX Qty: 4 0RF Dose Instruction: INJECT 1 SYRINGE SUBCUTANEOUSLY ONCE A WEEK Rx Instructions: INJECT 1 SYRINGE SUBCUTANEOUSLY ONCE A WEEK (DME) blood-glucose meter Kit See Rx Instructions .ROUTE .MEDSUPPLY Qty: 1 0RF Rx Instructions: As directed or 1xdaily (DME) BD Intradermal Bevel [place] 26 gauge x 3/8 needle See Rx Instructions .Route Qty: 100 0RF Rx Instructions: As directed or BID (DME) pen needle, diabetic [BD Ultra-Fine Mini Pen Needle] 31 gauge x 3/16 needle See Rx Instructions .ROUTE .COMPLEX Qty: 100 0RF Dose Instruction: FOR DIABETES; DIRECTED OR TWICE DAILY Rx Instructions: FOR DIABETES; DIRECTED OR TWICE DAILY losartan 25 mg tablet See Rx Instructions .ROUTE .COMPLEX Qty: 60 0RF Dose Instruction: TAKE 1 TABLET BY MOUTH EVERY DAY Rx Instructions: TAKE 1 TABLET BY MOUTH EVERY DAY buspirone 7.5 mg tablet 3.75 mg PO DAILY Rx Instructions: TAKE 1 TABLET BY MOUTH TWICE DAILY topiramate 100 mg tablet 150 mg PO HS fluticasone propionate [Flonase Allergy Relief] 50 mcg/actuation spray,suspension 2 spray intranasal DAILY Rx Instructions: administer into each nostril fluticasone furoate-vilanterol [Breo Ellipta] 100-25 mcg/dose blister with device 1 inh inhalation DAILY Vitamin C 100 mg Tablet 100 mg PO DAILY vitamin E 268 mg (400 unit) Capsule 268 mg PO DAILY vitamin B complex Capsule 1 cap PO DAILY zinc 10 mg Tablet 10 mg PO DAILY magnesium Tablet 1 tab PO DAILY vitamin S75-lvclz acid 0.5-1 mg Tablet 1 tab PO DAILY alpha lipoic acid 50 mg Tablet 50 mg PO DAILY Nurtec ODT 75 mg tablet,disintegrating 75 mg PO NEEDED PRN (Reason: migraine headache) tramadol 50 mg Tablet 50 mg PO Q4HP PRN (Reason: Mild To Moderate Pain) Qty: 30 0RF ondansetron 4 mg tablet,disintegrating 4 mg PO Q6H PRN (Reason: nausea and vomiting) Qty: 20 0RF chromium 1,000 mcg tablet 100 mcg PO DAILY doxycycline hyclate 100 mg capsule 100 mg PO BID simvastatin 40 mg tablet See Rx Instructions .ROUTE .COMPLEX Rx Instructions: TAKE 1 TABLET BY MOUTH ONCE DAILY FOR CHOLESTEROL ketorolac 10 mg tablet 10 mg PO Q6H estradiol 2 mg tablet See Rx Instructions .ROUTE .COMPLEX Rx Instructions: TAKE 1 TABLET BY MOUTH ONCE DAILY FOR HORMONE REPLACEMENT Januvia 100 mg tablet See Rx Instructions .ROUTE .COMPLEX Rx Instructions: TAKE 1 TABLET BY MOUTH EVERY DAY Referrals Follow up/Referrals:
[2022-10-25 11:31] VITALS: BP 158/78; PULSE 75; O2SAT 97
[2022-10-25 11:40] LABS: Basophils % 0.3 % (0.1-2.0); Eosinophils # 0.5 K/mm3 (0.0-0.4); Hematocrit 37.7 % (37.0-47.0); Hemoglobin 12.1 g/dL (12.2-16.2); Lymphocytes # 3.3 K/mm3 (0.7-4.5); Lymphocytes % 35.8 % (10-50); Mean Corpuscular HGB Conc 32.1 g/dL (31.8-35.4); Mean Corpuscular Hemoglobin 28.5 pg (27.0-31.2); Mean Corpuscular Volume 88.6 fl (81-99); Mean Platelet Volume 9.4 fl (7.4-10.4); Monocytes # 0.6 K/mm3 (0.1-1.0); Monocytes % 6.2 % (1.7-9.3); Neutrophils # 4.9 K/mm3 (1.8-7.8); Neutrophils % 52.7 % (37.0-80.0); Platelet Count 247 K/mm3 (142-424); Red Blood Count 4.26 M/mm3 (4.20-5.40); Red Cell Distribution Width 15.3 % (11.5-17.5); White Blood Count 9.3 K/mm3 (4.8-10.8)
[2022-10-25 11:43] LABS: Alanine Aminotransferase 18 U/L (12-78); Albumin Level 3.8 g/dl (3.5-5.0); Alkaline Phosphatase 145 U/L (38-126); Anion Gap 12.1 mEq/L (5-15); Aspartate Amino Transferase 30 U/L (14-36); Bilirubin,Total 0.4 mg/dl (0.2-1.3); Blood Urea Nitrogen 18 mg/dl (7-17); Calcium 8.9 mg/dl (8.4-10.2); Carbon Dioxide 25 mmol/L (22.0-30.0); Chloride 107 mmol/L (98-107); Creatinine Clearance Estimated 84 mL/min (50-200); Estimated Glomerular Filt Rate 43 ml/min (>60); GFR (African American) 51 ML/MIN (>60); Globulin 3.8 g/dL (1.3-3.2); Glucose 90 mg/dl (74-100); Potassium 4.1 mmoL/L (3.5-5.1); Sodium 140 mmol/L (136-145); Total Protein,Serum 7.6 g/dl (6.3-8.2)
--- NOTE | 2022-10-25 11:49 | PC.NURSE ---
waiting [employer] back from [facility]
--- NOTE | 2022-10-25 11:51 | PC.NURSE ---
rounded on patient RN at bedside no needs at this time
--- NOTE | 2022-10-25 11:59 | PC.NURSE ---
pt accepted to ER per Dr. Young Jordan
[2022-10-25 12:00] VITALS: BP 149/76; PULSE 77; O2SAT 98
--- NOTE | 2022-10-25 12:00 | PC.NURSE ---
Dr Phelan talked to Dr Jordan at , he has accepted patient.
[2022-10-25 12:10] LABS: Lactic Acid 1.4 mmol/L (0.7-2.1)
[2022-10-25 12:17] LABS: Erythrocyte Sedimentation Rate 77 mm/hr (0-30)
--- NOTE | 2022-10-25 12:34 | PC.NURSE ---
Called report to Falguni SANCHEZ
--- NOTE | 2022-10-25 12:37 | PC.NURSE ---
[facility] called for transfer to [facility]
[2022-10-25 12:59] VITALS: BP 149/76; PULSE 77; RESP 18; TEMP 36.9; O2SAT 98
== END 2022-10-25 13:13 | disposition short-term general hospital (02) ==
PROVIDERS: Emergency Provider Student in an Organized Health Care Education/Training Program; PCP Emergency Medicine
DX: M96.671 Fracture of tibia or fibula following insertion of orthopedic implant, joint prosthesis, or bone plate, right leg (principal); S82.401A Unspecified fracture of shaft of right fibula, initial encounter for closed fracture; T84.7XXA Infection and inflammatory reaction due to other internal orthopedic prosthetic devices, implants and grafts, initial encounter; F41.9 Anxiety disorder, unspecified; F32.A Depression, unspecified; J45.909 Unspecified asthma, uncomplicated; E11.40 Type 2 diabetes mellitus with diabetic neuropathy, unspecified; E78.5 Hyperlipidemia, unspecified; I10 Essential (primary) hypertension; W19.XXXA Unspecified fall, initial encounter; Y83.1 Surgical operation with implant of artificial internal device as the cause of abnormal reaction of the patient, or of later complication, without mention of misadventure at the time of the procedure
CPT/HCPCS: 73590; 73610; 73630; 80053; 83605; 85025; 85651; 86140; 87040; 96361; 96374; 96375; 99285; J2405

== ENCOUNTER → 2022-11-13 13:15 | Outpatient (POV) | payer BC, SELFPAY | PROVIDERS: Visit Provider Dermatology | DX: Z00.00 Encounter for general adult medical examination without abnormal findings (principal) ==

== ENCOUNTER → 2023-02-25 10:46 | Outpatient (CLI) | payer BC, SELFPAY ==
--- NOTE | 2023-02-25 10:52 | XR_ITS ---
FINAL REPORT CLINICAL HISTORY: Left lower leg/foot pain COMPARISON: None FINDINGS: AP and lateral views of the left tibia and fibula were obtained. There is no prior exam for comparison. There are deformities of the proximal to mid shafts of the tibia and fibula, likely related to old fractures. There is no convincing acute osseous abnormality. There are postoperative changes of the ankle. There are calcifications in the medial soft tissue which are nonspecific. IMPRESSION: No acute osseous abnormality of the left tibia or fibula. Reviewed, Interpreted and Dictated by Laurence Barnes MD Transcribed by Kati Lamas Authenticated and [facility]
--- NOTE | 2023-02-25 10:52 | XR_ITS ---
FINAL REPORT CLINICAL HISTORY: Right foot pain COMPARISON: 08/09/2022 FINDINGS: AP, oblique and lateral views of the right foot were obtained. There has been interval tibiotalar and t talocalcaneal fusion. Hardware appears intact. Appearance of the bones in the midfoot is otherwise stable. There is flattening of the midfoot arch. No acute osseous abnormality identified. There is diffuse soft tissue edema. IMPRESSION: Soft tissue edema without acute osseous abnormality of the right foot. Reviewed, Interpreted and Dictated by Laurence Barnes MD Transcribed by Kati Lamas Authenticated and [facility]
--- NOTE | 2023-02-25 10:52 | XR_ITS ---
FINAL REPORT CLINICAL HISTORY: Left foot pain COMPARISON: 12/29/2020 and 01/25/2022 FINDINGS: AP, oblique and lateral views of the left foot were obtained. There are extensive postoperative changes to the ankle and foot. Surgical screw in the 4th metatarsal is fractured in the cuboid; present on 01/25/2022 but new since 12/29/2020. Remainder of the hardware is intact and unchanged from prior exam. There is partial fusion at the hindfoot and midfoot. No new bony destruction is seen. There is diffuse soft tissue edema. IMPRESSION: Extensive postoperative changes to ankle and foot. Surgical screw through 4th metatarsal fractures at the level of the cuboid, new since 2020. Progressive but incomplete fusion. No convincing acute abnormality Reviewed, Interpreted and Dictated by Laurence Barnes MD Transcribed by Kati Lamas Authenticated and [facility]
--- NOTE | 2023-02-25 10:52 | XR_ITS ---
FINAL REPORT CLINICAL HISTORY: Right lower leg/foot pain COMPARISON: 10/25/2022 FINDINGS: AP and lateral views of the right tibia and fibula were obtained. There is an intramedullary kj affixing a fracture in the mid tibia. The hardware is intact. Fracture line is still visible. There is a healing fracture of the mid distal fibular shaft. No acute osseous abnormality identified. There is diffuse soft tissue edema. IMPRESSION: Diffuse soft tissue edema without acute osseous abnormality of the right tibia or fibula. Reviewed, Interpreted and Dictated by Laurence Barnes MD Transcribed by Kati Lamas Authenticated and [facility]
== END ==
PROVIDERS: PCP Emergency Medicine; Visit Provider Podiatrist
DX: M79.671 Pain in right foot (principal); M79.672 Pain in left foot; M14.672 Charcot's joint, left ankle and foot
CPT/HCPCS: 73590; 73630

== ENCOUNTER → 2023-03-12 08:38 | Outpatient (CLI) | payer BC, SELFPAY ==
--- NOTE | 2023-03-12 08:39 | XR_ITS ---
FINAL REPORT CLINICAL HISTORY: osteoporosis screening COMPARISON: None FINDINGS: Using L1-4, the bone mineral density of the spine is 1.147 g/cm2, corresponding to T-score of 0.9, within normal limits. Using the left hip, the bone mineral density of the femoral neck is 0.837 g/cm2, corresponding to a T-score of -0.1, within normal limits. Using the right hip, the bone mineral density of the femoral neck is 0.862 g/cm2, corresponding to a T-score of 0.1, within normal limits. NOTE: T-score: Standard deviation compared with peak bone mass of young adult mean. *Following the recommendations of the International Society of Bone densitometry, classification of hip BMD is based on the lower of two T-scores; total hip or femoral neck. IMPRESSION: Normal bone mineral density of the lumbar spine and hips. Reviewed, Interpreted and Dictated by Lai Pressley III, MD Transcribed by Kati Lamas Authenticated and [facility]
== END ==
PROVIDERS: PCP Emergency Medicine; Visit Provider Internal Medicine
DX: M81.0 Age-related osteoporosis without current pathological fracture (principal)
CPT/HCPCS: 77080

== ENCOUNTER → 2023-03-21 06:55 | Outpatient (CLI) | payer BC, SELFPAY ==
[2023-03-21 18:13] LABS: Adenovirus,PCR Not Detected (NotDetected); Coronavirus 19, PCR Not Detected (NotDetected); Coronavirus 229E Not Detected (NotDetected); Coronavirus NL63 Not Detected (NotDetected); Coronavirus OC43 Not Detected (NotDetected); Coronovirus HKU1,PCR Not Detected (NotDetected); Human Metapneumovirus Not Detected (NotDetected); Influenza A, PCR Not Detected (NotDetected); Influenza AH1, 2009 Not Detected (NotDetected); Influenza AH1, PCR Not Detected (NotDetected); Influenza AH3,PCR Not Detected (NotDetected); Influenza B, PCR Not Detected (NotDetected); Parainfluenza 1, PCR Not Detected (NotDetected); Parainfluenza 2, PCR Not Detected (NotDetected); Parainfluenza 3, PCR Not Detected (NotDetected); Parainfluenza 4, PCR Not Detected (NotDetected); Respiratory Syncytial Virus Not Detected (NotDetected)
[2023-03-22 02:43] LABS: Rhinovirus/Enterovirus Detected (NotDetected)
== END ==
PROVIDERS: Internal Medicine; PCP Nurse Practitioner Family; Visit Provider Nurse Practitioner Family
DX: R06.02 Shortness of breath (principal); B34.1 Enterovirus infection, unspecified; R05.9 Cough, unspecified; R53.83 Other fatigue; R19.7 Diarrhea, unspecified
CPT/HCPCS: 87632; 87635

== ENCOUNTER → 2023-04-09 12:23 | Outpatient (CLI) | payer BC, SELFPAY ==
--- NOTE | 2023-04-09 12:29 | CT_ITS ---
FINAL REPORT TECHNIQUE: Thin section axial CT images with coronal and sagittal reformats were performed. This study was performed with techniques to keep radiation doses as low as reasonably achievable (ALARA). Individualized dose reduction techniques using automated exposure control or adjustment of mA and/or kV according to the patient''s size were employed. CLINICAL HISTORY: pain of lower extremity, hx sx, tib-fib fracture FINDINGS: An intramedullary kj is seen extending through the tibia bridging healed fracture deformity of the distal tibial diaphysis. Intramedullary kj extends through the mortise and the subtalar joint. There is a moderate displaced fracture of the distal fibular diaphysis. There is approximately half shaft width anterior displacement of the distal fibular fragment. The fibular fracture line remains visible. There is fragmentation of the metatarsal joints, probably due to underlying Charcot joint. IMPRESSION: IM kj securing the tibia to the calcaneus with healed fracture deformity. Displaced fracture of the distal fibula with persistent visible fracture line. Changes of Charcot arthropathy. Reviewed, Interpreted and Dictated by Remberto Bose MD Transcribed by Loly Aguirre Authenticated and [facility]
== END ==
PROVIDERS: PCP Internal Medicine; Visit Provider Podiatrist
DX: M14.671 Charcot's joint, right ankle and foot (principal); R26.0 Ataxic gait
CPT/HCPCS: 73700

== ENCOUNTER 2023-04-25 11:10 | Outpatient (CLI) | payer MEDICARE, BC, SELFPAY ==
[2023-04-25 12:30] LABS: Anion Gap 9.5 mEq/L (5-15); Blood Urea Nitrogen 25 mg/dl (7-17); Calcium 8.4 mg/dl (8.4-10.2); Carbon Dioxide 24 mmol/L (22.0-30.0); Chloride 106 mmol/L (98-107); Estimated Glomerular Filt Rate 46 ml/min (>60); GFR (African American) 56 ML/MIN (>60); Glucose 157 mg/dl (74-100); Potassium 4.5 mmoL/L (3.5-5.1); Sodium 135 mmol/L (136-145)
== END 2023-04-25 23:59 ==
LOC: LAB 11:11
PROVIDERS: PCP Internal Medicine; Visit Provider Nurse Practitioner Family
DX: E66.9 Obesity, unspecified (principal); E78.5 Hyperlipidemia, unspecified; G47.33 Obstructive sleep apnea (adult) (pediatric); I10 Essential (primary) hypertension; I20.89 Other forms of angina pectoris; N18.32 Chronic kidney disease, stage 3b; R06.00 Dyspnea, unspecified; Z99.89 Dependence on other enabling machines and devices; Z68.41 Body mass index [BMI] 40.0-44.9, adult
CPT/HCPCS: 36415; 80048

== ENCOUNTER 2023-05-02 07:40 | Outpatient (CLI) | payer MEDICARE, SELFPAY ==
--- NOTE | 2023-05-02 07:47 | CA_ITS ---
APPROVED REPORT EXAM: Comprehensive 2D, Doppler, and color-flow Echocardiogram Senior Environmental Engineer: ANNA Vásquez, RVS Ht: 5 ft 5 in Wt: 247lbs BSA: 2.16 BP: 183/84 mmHg Indications: CP, SOB, DM, Fatigue, HTN, HLD, Edema Echo Enhancing Agent Comments: TDS: large body habitus 2D Dimensions Left Atrium 3.59 cm F: 2.7 - 3.8 LA Volume 92.00 mL LA Volume Index 42.40 mL/m2 (M/F) 16-34 M-Mode Dimensions RVDd 2.65 cm (0.9-2.6) LA Diam 3.95 cm (1.9-4.0) LVDd 4.90 cm (3.5-5.7) LVDs 3.65 cm (3.5-5.7) IVSd 0.82 cm (0.6-1.1) PWd 1.00 cm (0.6-1.1) EF (Teich) 50.10% EPSs 0.69 cm FS 25.50% EDV (Teich) 112.80 mL ESV (Teich) 56.30 mL LV Diastology E Decel Time 173 (160-240 msec) E/A Ratio 1.15 MED A' 9.00 cm/s LAT A' 9.90 cm/s Aortic Valve GABRIELLE Index 1.03 cm2/m2 AoV Peak Tramaine. 124.0 (50-130 cm/s) AO Peak GR. 6.20 mmHg AO Mean GR. 3.10 (<5 mmHg) AO VTI 25.4 (18-25 cm) GABRIELLE (VTI) 2.29 (2.5-4.5 cm2) Mitral Valve MV A Velocity 92.0 (40-130 cm/s) E/A Ratio 1.15 Tricuspid Valve TR P. Velocity 174.00 cm/s RAP Estimate 10.00 mmHg RVSP 22.10 mmHg Left Ventricle The left ventricle is normal size. The left ventricular systolic function is normal. The left ventricular ejection fraction is within the normal range. There is increased left ventricular wall thickness. There is normal LV segmental wall motion. Grade 2 diastolic dysfunction is present. LVEF is 50-55%. Right Ventricle The right ventricle is normal size. The right ventricular systolic function is normal. Atria Left atrium is moderately dilated. Right atrium is mildly dilated. There is no Doppler evidence of interatrial shunt. Aortic Valve The aortic valve is mildly thickened. There is no aortic valvular stenosis. No aortic regurgitation is present. Mitral Valve The mitral valve is normal in structure. No evidence of mitral valve stenosis. Mild mitral regurgitation. Tricuspid Valve The tricuspid valve leaflets are thin and pliable. Trace tricuspid regurgitation. There is insufficient TR jet to estimate RVSP. Pulmonic Valve The pulmonary valve is normal in structure. Trace pulmonic regurgitation. Great Vessels The aortic root is normal in size. The ascending aorta is normal in size. IVC is normal in size and collapses >50% with inspiration. Pericardium There is no pericardial effusion. Other Information Study Quality: Technically Difficult Conclusion Technically difficult study due to poor accoustic windows. Normal biventricular systolic function. Grade 2 diastolic dysfunction. Biatrial dilation. Mild MR. In the setting of persistent symptoms, grade 2 diastolic dysfunction, and biatrial dilation, further evaluation for infiltrative diseases, namely amyloidosis, is recommended (lab tests, cardiac MRI [amyloidosis protocol], and PYP scan). Electronically signed by : Martha Ramos MD 05/04/2023 16:24:20
== END 2023-05-02 23:59 ==
PROVIDERS: PCP Internal Medicine; Visit Provider Nurse Practitioner Family
DX: R06.09 Other forms of dyspnea (principal); I20.89 Other forms of angina pectoris; I11.9 Hypertensive heart disease without heart failure; R94.31 Abnormal electrocardiogram [ECG] [EKG]
CPT/HCPCS: 93306

== ENCOUNTER 2023-05-02 11:43 | Outpatient (CLI) | payer MEDICARE, SELFPAY ==
[2023-05-02 12:14] LABS: Basophils # 0.1 K/mm3 (0-0.2); Basophils % 0.5 % (0.1-2.0); Eosinophils # 0.3 K/mm3 (0.0-0.4); Eosinophils % 3.1 % (0.1-12.0); Hematocrit 35.2 % (37.0-47.0); Hemoglobin 11.2 g/dL (12.2-16.2); Lymphocytes # 4.4 K/mm3 (0.7-4.5); Lymphocytes % 41.5 % (10-50); Mean Corpuscular HGB Conc 31.9 g/dL (31.8-35.4); Mean Corpuscular Hemoglobin 26.1 pg (27.0-31.2); Mean Corpuscular Volume 81.8 fl (81-99); Mean Platelet Volume 10.5 fl (7.4-10.4); Monocytes # 0.5 K/mm3 (0.1-1.0); Monocytes % 4.5 % (1.7-9.3); Neutrophils # 5.3 K/mm3 (1.8-7.8); Neutrophils % 50.4 % (37.0-80.0); Platelet Count 226 K/mm3 (142-424); Red Cell Distribution Width 18.2 % (11.5-17.5); White Blood Count 10.5 K/mm3 (4.8-10.8)
[2023-05-02 12:46] LABS: Hemoglobin A1C 9.7 % (4.0-6.0)
[2023-05-02 14:00] LABS: Chloride 105 mmol/L (98-107); Sodium 136 mmol/L (136-145)
[2023-05-02 14:01] LABS: Potassium 4.7 mmoL/L (3.5-5.1)
[2023-05-02 14:03] LABS: Alanine Aminotransferase 15 U/L (12-78); Alkaline Phosphatase 193 U/L (38-126); Anion Gap 13.7 mEq/L (5-15); Aspartate Amino Transferase 26 U/L (14-36); Bilirubin,Total 0.4 mg/dl (0.2-1.3); Blood Urea Nitrogen 21 mg/dl (7-17); Carbon Dioxide 22 mmol/L (22.0-30.0); Estimated Glomerular Filt Rate 46 ml/min (>60); GFR (African American) 56 ML/MIN (>60)
[2023-05-02 14:04] LABS: Albumin Level 3.4 g/dl (3.5-5.0); Albumin/Globulin Ratio 1.1 (1.1-1.8); Calcium 8.4 mg/dl (8.4-10.2); Glucose 214 mg/dl (74-100); Total Protein,Serum 6.4 g/dl (6.3-8.2)
== END 2023-05-02 23:59 ==
PROVIDERS: PCP Internal Medicine; Visit Provider Internal Medicine
DX: E11.9 Type 2 diabetes mellitus without complications (principal); R53.83 Other fatigue; Z79.4 Long term (current) use of insulin
CPT/HCPCS: 80053; 83036; 85025

== ENCOUNTER 2023-05-28 15:56 | Outpatient (CLI) | payer MEDICARE, SELFPAY ==
[2023-05-28 17:44] LABS: Chloride 102 mmol/L (98-107); Sodium 134 mmol/L (136-145)
[2023-05-28 17:45] LABS: Potassium 4.1 mmoL/L (3.5-5.1)
[2023-05-28 17:47] LABS: Blood Urea Nitrogen 31 mg/dl (7-17); Estimated Glomerular Filt Rate 42 ml/min (>60); GFR (African American) 51 ML/MIN (>60)
[2023-05-28 17:48] LABS: Anion Gap 7.1 mEq/L (5-15); Calcium 8.7 mg/dl (8.4-10.2); Carbon Dioxide 29 mmol/L (22.0-30.0); Glucose 153 mg/dl (74-100)
== END 2023-05-28 23:59 ==
LOC: LAB 15:57
PROVIDERS: PCP Internal Medicine; Visit Provider Nurse Practitioner Family
DX: E66.9 Obesity, unspecified (principal); I20.89 Other forms of angina pectoris; I51.89 Other ill-defined heart diseases; N18.32 Chronic kidney disease, stage 3b; R06.00 Dyspnea, unspecified; R93.1 Abnormal findings on diagnostic imaging of heart and coronary circulation; Z68.39 Body mass index [BMI] 39.0-39.9, adult
CPT/HCPCS: 36415; 80048

== ENCOUNTER 2023-05-29 08:45 | Outpatient (CLI) | payer MEDICARE, SELFPAY ==
--- NOTE | 2023-05-29 08:45 | CT_ITS ---
FINAL REPORT CLINICAL HISTORY: Abnormal ECHO, chest pain, dyspnea COMPARISON: 06/05/2019 FINDINGS: Thin section axial CT images of the chest were obtained with contrast. 3D reformatted images were also obtained. This study was performed with techniques to keep radiation doses as low as reasonably achievable (ALARA). Individualized dose reduction techniques using automated exposure control or adjustment of mA and/or kV according to the patient''s size were employed. There is no evidence of pulmonary embolism. There is no evidence of thoracic aortic aneurysm or dissection. There is no evidence of mediastinal or hilar mass or adenopathy. There is no evidence of pulmonary mass or nodule. No localized inflammatory process is seen within the lungs. Limited images of the upper abdomen are unremarkable. A prior cholecystectomy has been performed. IMPRESSION: No evidence of pulmonary embolism. No mass or localized inflammatory process. Reviewed, Interpreted and Dictated by Lai Pressley III, MD Transcribed by Jaqueline Romo Authenticated and [facility]
--- NOTE | 2023-05-29 08:47 | MR_ITS ---
APPROVED REPORT Combined Rail Operator: CLINICAL INDICATION HF symptoms, diastolic dysfunction, biatrial dilation. Amyloidosis evaluation. TECHNIQUE Image Acquisition: Cardiac magnetic resonance (CMR) was performed on Siemens Espree MRI 1.5T scanner. Software platform sequences were performed using the [employer] MR B19 platform. A set of three-plane, low-resolution, large [id number]-rilm localizers were initially acquired. Then axial, coronal, sagittal TrueFISP, as well as axial HASTE images, were obtained. These were followed by gated TrueFISP breathold cinematic sequences obtained in the short axis with 8 mm slices and 2 mm gaps, 2-chamber (vertical long axis), 3-chamber, 4-chamber (horizontal long axis). A bolus of contrast was injected intravenously with first-pass sequences obtained in the short axis and four-chamber planes. After approximately 10 minutes, a TI office support specialist sequence was performed to determine the optimal TI time. Using the optimized TI time, delayed contrast enhancement segmented inversion???recovery TurboFLASH sequences were obtained in the short axis, 2-chamber, 3-chamber, and 4-chamber projections. 2D-velocity phase mapping was performed. Functional parameters were calculated by offline analysis on an independent workstation ([employer], [id number]). Contrast: ProHance??? (Gadoteridol) FINDINGS MORPHOLOGY AND FUNCTION Left ventricle: The left ventricle is normal in size. The indexed left ventricular end-diastolic volume (LVEDVi) is 75 ml/m2 (reference range 57-105 ml/m2 in males, 56-96 ml/m2 in females). Low-normal left ventricular systolic function is present. There is normal left ventricular wall thickness. There are no regional wall motion abnormalities noted. LVEF is calculated at 50.1% (reference range 57-77%). Right ventricle: The right ventricle is normal in size. The indexed right ventricular end-diastolic volume (RVEDVi) is 67 ml/m2 (reference range 61-121 ml/m2 in males, 48-112 ml/m2 in females). Low-normal right ventricular systolic function is present. RVEF is calculated at 51.0% (reference range 52-72% in males, 51-71% in females). Atria: The left atrium is normal in size. The maximum indexed left atrial volume is 40 ml/m2 (reference range 26-52 ml/m2 in males, 27-53 ml/m2 in females). The right atrium is normal in size. The maximum indexed right atrial volume is 19 ml/m2 (reference range 18-90 ml/m2). Aorta: The diameter of the aortic annulus is normal, measuring 21 mm (coronal view reference range 21-30 mm in males, 19-27 mm in females). The diameter of the aortic sinus is normal, measuring 29 mm (coronal view reference range 25-42 mm in males, 24-36 mm in females). The diameter of the sinotubular junction is normal, measuring 24 mm (coronal view reference range 18-32 mm in males, 18-28 mm in females). The diameters of the ascending and descending thoracic aorta are normal. Main pulmonary artery: The main pulmonary artery diameter is normal. Pericardium: The pericardial thickness is normal. The pericardial thickness measures 2.3 cm (normal < 4.0 cm). There is no pericardial effusion. VALVES The valvular morphologies in the visualized sequences appear normal. There is no significant valvular stenosis or regurgitation of the mitral, aortic, tricuspid, or pulmonic valve noted visually. Systolic anterior motion of the mitral valve is not visualized. Ratio of pulmonary to systemic flow, Qp:Qs ratio = 1.1 (normal < or = 1.2), demonstrating no evidence of hemodynamically significant shunt. TISSUE CHARACTERIZATION Resting Perfusion: Normal myocardial blood flow at rest. No evidence of resting hypoperfusion. Myocardial Fibrosis and/or edema: Normal gadolinium kinetics are present. No evidence of late gadolinium enhancement is noted, consistent with absence of myocardial scarring, infarction, or necrosis. T2-weighted imaging demonstrates no evidence of myocardial edema or inflammation. OTHER No other significant findings are noted. However, this exam is focused on the cardiac structure and function. IMPRESSION Normal LV size with low-normal LV systolic function. LVEDVi= 75 ml/m2 and LVEF= 50.1%. Normal LV wall thickness. Normal RV size with low-normal RV systolic function. RVEDVi= 67 ml/m2 and RVEF= 51.0%. No atrial enlargement. No CMR evidence of myocardial scarring, infarction, or necrosis. No evidence of myocardial edema or inflammation. Perfusion analysis demonstrates normal blood flow at rest with no evidence of resting hypoperfusion. Ratio of pulmonary to systemic flow, Qp:Qs ratio = 1.1 (normal < or = 1.2), demonstrating no evidence of hemodynamically significant shunt. Overall, CMR demonstrates normal biventricular size and low-normal biventricular systolic function. No CMR evidence of amyloidosis. COMPARISON None CRITICAL RESULT None COMMUNICATION Per this written report The findings of this cardiac MR were reviewed, reported, and signed by Vadim Ramos MD (District Medical Examiner). Conclusion Electronically signed by : Martha Ramos MD 06/02/2023 18:34:40
[2023-05-29] MEDS: SODIUM CHLORIDE 0.9% 10ML SYR (RAD ONLY) 10 ML IV (10:04)
[2023-05-29] MEDS: IOPAMIDOL-370 (76%);100ML BOTTLE 75 ML IV (10:04)
[2023-05-29] MEDS: SODIUM CHLORIDE 0.9% 50ML BAG 25 ML IV (11:37)
[2023-05-29] MEDS: GADOTERIDOL INJ 17ML SYRINGE 24 ML IV (11:38)
== END 2023-05-29 23:59 ==
LOC: RAD 08:45
PROVIDERS: PCP Internal Medicine; Visit Provider Nurse Practitioner Family
DX: E66.9 Obesity, unspecified (principal); I20.89 Other forms of angina pectoris; I51.89 Other ill-defined heart diseases; N18.32 Chronic kidney disease, stage 3b; R06.00 Dyspnea, unspecified; R93.1 Abnormal findings on diagnostic imaging of heart and coronary circulation; Z68.39 Body mass index [BMI] 39.0-39.9, adult
CPT/HCPCS: 71275; 75561; A9576; Q9967

== ENCOUNTER 2023-06-27 12:25 | Outpatient (CLI) | payer MEDICARE, SELFPAY ==
--- NOTE | 2023-06-27 12:31 | XR_ITS ---
FINAL REPORT CLINICAL HISTORY: Right foot/ankle pain COMPARISON: 02/25/2023 FINDINGS: RIGHT FOOT: Three views of the right foot were obtained. Again noted is postoperative change from fusion of the tibiotalar and talocalcaneal joints. An IM kj and screws are present. Hardware appears intact. Bony alignment is stable. There is no acute fracture or dislocation. There is degenerative change of the midfoot. There is mild degenerative change of the first MTP. There is no soft tissue abnormality. IMPRESSION: Stable postoperative and degenerative changes without acute bony abnormality. Reviewed, Interpreted and Dictated by Lai Pressley III, MD Transcribed by Kati Lamas Authenticated and . [facility]
--- NOTE | 2023-06-27 12:31 | XR_ITS ---
FINAL REPORT CLINICAL HISTORY: Right ankle pain COMPARISON: 10/25/2022 FINDINGS: RIGHT ANKLE: Three views of the right ankle were obtained. There are postoperative changes from ankle fusion. An IM kj extends to the tibia, talus, and calcaneus. There are chronic fractures of the tibia and fibula with callus formation at the fracture sites. Fibular fracture line is again seen and may represent delayed union or nonunion. There is no acute fracture or dislocation. There is degenerative change of the midfoot, significantly worse. There is no soft tissue abnormality. IMPRESSION: Significantly worse degenerative change of the midfoot. Postoperative changes as above with no acute bony abnormality. Reviewed, Interpreted and Dictated by Lai Pressley III, MD Transcribed by Kati Lamas Authenticated and [facility]
[2023-06-27 18:41] LABS: Basophils # 0.1 K/mm3 (0-0.2); Basophils % 0.6 % (0.1-2.0); Eosinophils # 0.3 K/mm3 (0.0-0.4); Eosinophils % 4.1 % (0.1-12.0); Hematocrit 37.7 % (37.0-47.0); Hemoglobin 11.4 g/dL (12.2-16.2); Lymphocytes # 3.7 K/mm3 (0.7-4.5); Lymphocytes % 44.8 % (10-50); Mean Corpuscular HGB Conc 30.2 g/dL (31.8-35.4); Mean Corpuscular Hemoglobin 25.9 pg (27.0-31.2); Mean Corpuscular Volume 85.9 fl (81-99); Mean Platelet Volume 10.8 fl (7.4-10.4); Monocytes # 0.5 K/mm3 (0.1-1.0); Monocytes % 6.6 % (1.7-9.3); Neutrophils # 3.7 K/mm3 (1.8-7.8); Neutrophils % 44.1 % (37.0-80.0); Platelet Count 260 K/mm3 (142-424); Red Blood Count 4.39 M/mm3 (4.20-5.40); White Blood Count 8.3 K/mm3 (4.8-10.8)
[2023-06-27 20:26] LABS: Vitamin B12 > 1000 pg/mL (239-931)
[2023-06-27 20:51] LABS: Ferritin 7.19 ng/ml (11.1-264)
[2023-06-29 18:23] LABS: Peripheral Smear Review Scanned Result
== END 2023-06-27 23:59 ==
LOC: RAD 12:27
PROVIDERS: PCP Internal Medicine; Visit Provider Nurse Practitioner
DX: M25.571 Pain in right ankle and joints of right foot (principal); D64.9 Anemia, unspecified; R53.83 Other fatigue; M79.671 Pain in right foot; R79.0 Abnormal level of blood mineral; R79.89 Other specified abnormal findings of blood chemistry
CPT/HCPCS: 73610; 73630; 82607; 82728; 82746; 85025

== ENCOUNTER 2023-07-11 11:29 | Outpatient (CLI) | payer MEDICARE, SELFPAY ==
[2023-07-11 12:26] LABS: Alanine Aminotransferase 15 U/L (12-78); Albumin Level 3.5 g/dl (3.5-5.0); Albumin/Globulin Ratio 1.1 (1.1-1.8); Alkaline Phosphatase 169 U/L (38-126); Anion Gap 11.3 mEq/L (5-15); Aspartate Amino Transferase 24 U/L (14-36); Bilirubin,Total 0.3 mg/dl (0.2-1.3); Blood Urea Nitrogen 31 mg/dl (7-17); Calcium 9.1 mg/dl (8.4-10.2); Carbon Dioxide 29 mmol/L (22.0-30.0); Chloride 98 mmol/L (98-107); Estimated Glomerular Filt Rate 33 ml/min (>60); GFR (African American) 40 ML/MIN (>60); Globulin 3.2 g/dL (1.3-3.2); Glucose 210 mg/dl (74-100); Potassium 4.3 mmoL/L (3.5-5.1); Sodium 134 mmol/L (136-145); Total Protein,Serum 6.7 g/dl (6.3-8.2)
[2023-07-11 13:09] LABS: Creatinine,Urine Random 44 mg/dL (Not Estab.)
[2023-07-11 13:12] LABS: Microalbumin/Creatinine Ratio 52.5
== END 2023-07-11 23:59 ==
LOC: LAB.DROPOF 11:30
PROVIDERS: PCP Internal Medicine; Visit Provider Internal Medicine
DX: E11.9 Type 2 diabetes mellitus without complications (principal); R53.83 Other fatigue; Z79.4 Long term (current) use of insulin; Z79.84 Long term (current) use of oral hypoglycemic drugs; Z79.85 Long-term (current) use of injectable non-insulin antidiabetic drugs
CPT/HCPCS: 80053; 82043; 82570

== ENCOUNTER 2023-08-04 15:24 | Observation (INO) | payer MEDICARE, SELFPAY ==
[2023-08-04] VITALS (13 sets, daily range): BP systolic 87–139; BP diastolic 45–72; PULSE 82–87; RESP 14–19; TEMP 36.6–36.9; O2SAT 93–98; BMI 34.3; BMI 43.0
--- NOTE | 2023-08-04 15:32 | ECG_ITS ---
APPROVED REPORT Exam: Resting ECG HR:86 bpm ECG Measurements Heart Rate 86 AXES AZ 162 P 26 QRSd 91 QRS -13 QT 378 T 14 QTc 421 Conclusion SINUS RHYTHM POSSIBLE ANTERIOR MYOCARDIAL INFARCTION , PROBABLY OLD [30 ms Q WAVE IN V3/V4, OR R < 0.2 mV IN V4] BORDERLINE ECG Electronically signed by : DEANNA ASTUDILLO, 08/04/2023 23:58:36
[2023-08-04 15:49] LABS: Coronavirus 19, PCR Not Detected (NotDetected); Influenza A, PCR Not Detected (NotDetected); Influenza B, PCR Not Detected (NotDetected)
--- NOTE | 2023-08-04 15:53 | XR_ITS ---
PROCEDURE INFORMATION: Exam: XR Chest Exam date and time: 08/04/2023 3:52 PM Age: 57 years old Clinical indication: Other: Syncopal episode; Additional info: Syncope TECHNIQUE: Imaging protocol: Radiologic exam of the chest. Views: 1 view. COMPARISON: CT ANGIO CHEST PE PROTOCOL 05/29/2023 9:02 AM FINDINGS: Lungs: Unremarkable. No consolidation. Pleural spaces: Unremarkable. No pleural effusion. No pneumothorax. Heart/Mediastinum: Unremarkable. No cardiomegaly. Bones/joints: Unremarkable. IMPRESSION: Stable chest x-ray with no acute disease.
--- NOTE | 2023-08-04 15:55 | [facility].EDCP ---
Discharge Plan Disposition Patient Disposition: Home, Self-Care Chief Complaint: Syncope Prescriptions Prescriptions: No Action cholecalciferol (vitamin D3) 50 mcg (2,000 unit) capsule 50 mcg PO DAILY Qty: 90 1RF fluticasone furoate-vilanterol [Breo Ellipta] 100-25 mcg/dose blister with device 1 inh inhalation DAILY 90 Days Qty: 60 0RF vitamin [id number] acid 0.5-1 mg tablet 1 tab PO DAILY 90 Days Qty: 90 1RF vitamin E 268 mg (400 unit) capsule 268 mg PO DAILY 90 Days Qty: 90 1RF (DME) blood pressure monitor [Blood Pressure Kit] Kit See Rx Instructions .Route Qty: 1 0RF Rx Instructions: As directed albuterol sulfate 90 mcg/actuation HFA aerosol inhaler 2 puff inhalation Q4-6H PRN (Reason: shortness of breath or wheezing) Qty: 8.5 5RF amitriptyline 25 mg tablet 25 mg PO HS 90 Days Qty: 90 4RF cyclobenzaprine 5 mg tablet See Rx Instructions .ROUTE .COMPLEX Qty: 90 4RF Dose Instruction: TAKE 1 TABLET BY MOUTH TWICE A DAY NEEDED FOR MUSCLE SPASM Rx Instructions: TAKE 1 TABLET BY MOUTH TWICE A DAY NEEDED FOR MUSCLE SPASM duloxetine 60 mg capsule,delayed release(DR/EC) See Rx Instructions .ROUTE .COMPLEX Qty: 90 4RF Dose Instruction: TAKE 1 CAPSULE BY MOUTH ONCE DAILY Rx Instructions: TAKE 1 CAPSULE BY MOUTH ONCE DAILY empagliflozin 25 mg tablet 25 mg PO DAILY 90 Days Qty: 90 4RF estradiol 2 mg tablet 8 mg PO DAILY 90 Days Qty: 360 4RF insulin glargine [Lantus Solostar U-100 Insulin] 100 unit/mL (3 mL) insulin pen 18 unit SQ HS 30 Days Qty: 5.4 5RF Humulin 70/30 U-100 KwikPen 100 unit/mL (70-30) insulin pen 63 unit SQ BID 90 Days Qty: 113.4 4RF (DME) lancets [OneTouch Delica Plus Lancet] 33 gauge misc See Rx Instructions .ROUTE .COMPLEX Qty: 100 9RF Dose Instruction: DIRECTED Rx Instructions: DIRECTED losartan 100 mg tablet 100 mg PO DAILY 90 Days Qty: 90 4RF pregabalin 150 mg capsule 150 mg PO TID 30 Days Qty: 90 5RF Rx Instructions: No RF until seen in office [facility] ODT 75 mg tablet,disintegrating 75 mg PO NEEDED PRN (Reason: migraine headache) 90 Days Qty: 30 4RF semaglutide 1 mg/dose (4 mg/3 mL) pen injector 1 mg SQ WEEKLY Qty: 3 8RF metoprolol succinate 50 mg tablet extended release 24 hr See Rx Instructions .ROUTE .COMPLEX 90 Days Qty: 90 4RF Dose Instruction: TAKE 1 & 1/2 TABLETS BY MOUTH AT BEDTIME FOR BLOOD PRESSURE Rx Instructions: TAKE 1 & 1/2 TABLETS BY MOUTH AT BEDTIME FOR BLOOD PRESSURE simvastatin 40 mg tablet See Rx Instructions .ROUTE .COMPLEX 90 Days Qty: 90 4RF Dose Instruction: TAKE 1 TABLET BY MOUTH ONCE DAILY FOR CHOLESTEROL Rx Instructions: TAKE 1 TABLET BY MOUTH ONCE DAILY FOR CHOLESTEROL topiramate 100 mg tablet See Rx Instructions .ROUTE .COMPLEX 90 Days Qty: 300 4RF Rx Instructions: Take 1 tablet PO each morning, Take 1.5 tablets PO each night. clindamycin HCl 300 mg capsule 300 mg PO TID 14 Days Qty: 42 0RF triamterene-hydrochlorothiazid 37.5-25 mg capsule 1 cap PO DAILY Qty: 90 3RF (DME) pen needle, diabetic [Pen Needle] 32 gauge x 5/32 needle See Rx Instructions .ROUTE .COMPLEX Qty: 100 0RF Dose Instruction: USE TO INJECT TWICE DAILY Rx Instructions: USE TO INJECT TWICE DAILY (DME) FreeStyle Jayshree 14 Day Sensor Kit See Rx Instructions .Route Qty: 1 3RF Rx Instructions: As directed (DME) FreeStyle Jayshree 14 Day [place] [facility] See Rx Instructions .Route Qty: 1 0RF Rx Instructions: As directed pantoprazole 40 mg tablet,delayed release (DR/EC) See Rx Instructions .ROUTE .COMPLEX Qty: 30 1RF Dose Instruction: TAKE 1 TABLET BY MOUTH ONCE DAILY Rx Instructions: TAKE 1 TABLET BY MOUTH ONCE DAILY ferrous sulfate 325 mg (65 mg iron) tablet 325 mg PO BID Qty: 60 3RF montelukast 10 mg tablet See Rx Instructions .ROUTE .COMPLEX Qty: 90 0RF Dose Instruction: TAKE 1 TABLET BY MOUTH AT BEDTIME Rx Instructions: TAKE 1 TABLET BY MOUTH AT BEDTIME fluticasone propionate [Flonase Allergy Relief] 50 mcg/actuation spray,suspension 2 spray intranasal DAILY Rx Instructions: administer into each nostril Vitamin C 100 mg Tablet 100 mg PO DAILY zinc 10 mg Tablet 10 mg PO DAILY magnesium Tablet 1 tab PO DAILY chromium 1,000 mcg tablet 100 mcg PO DAILY Referrals Follow up/Referrals: Kendall Mccrary DO [Primary Care Provider] - See instructions Clinical Impressions Clinical Impression: Syncope, Acidosis, lactic Instructions Patient Instructions: DI for Syncope in Adults (Fainting), DI for Syncope in Children (Fainting) Discharge ED Provider: Jose Juan Mosley HPI General Chief Complaint: Syncope Stated Complaint: Passed out in from yard no injury Time Seen by Provider: 08/04/23 15:40 History of Present Illness HPI narrative: Patient is a 57-year-old female past medical history of insulin-dependent diabetes, atypical angina, previous syncope who presents to the emergency department for evaluation of syncope. Patient nolan from being seated in her car and took a couple of steps and had an episode of syncope falling forwards into her yard. Her previous episodes of syncope she has had tunnel vision however there was no preceding symptoms today. Subsequently patient had transient confusion which resolved prior to arrival. Patient has had 2-3 episodes of this over the last 2 years. Patient had blood pressure medications adjusted approximately 2 months ago. She has slight chest pain that is on her right chest wall radiating up to her right shoulder, she has chest pain intermittently at baseline. No other acute complaints at this time. Related Data Home Medications Medication Instructions Recorded Confirmed fluticasone propionate 50 2 spray intranasal DAILY allergies 08/27/22 07/25/23 mcg/actuation nasal spray,suspension (Flonase Allergy Relief) ascorbic acid (vitamin C) 100 mg 100 mg PO DAILY Supplement 08/28/22 07/25/23 tablet (Vitamin C) magnesium 1 tab PO DAILY Supplement 08/28/22 07/25/23 zinc 10 mg tablet 10 mg PO DAILY Supplement 08/28/22 07/25/23 chromium 1,000 mcg tablet 100 mcg PO DAILY Supplement 10/04/22 07/25/23 Previous Rx's Medication Instructions Recorded cholecalciferol (vitamin D3) 50 50 mcg PO DAILY Supplement #90 caps 02/07/23 mcg (2,000 unit) capsule fluticasone furoate 100 1 inh inhalation DAILY allergies 02/07/23 mcg-vilanterol 25 mcg/dose 90 days #60 ea inhalation powder (Breo Ellipta) vitamin B12 0.5 mg-folic acid 1 mg 1 tab PO DAILY Supplement 90 days 02/07/23 tablet #90 tabs vitamin E 268 mg (400 unit) capsule 268 mg PO DAILY Supplement 90 days 02/07/23 #90 caps triamterene 37.5 1 cap PO DAILY #90 caps 06/11/23 mg-hydrochlorothiazide 25 mg capsule blood pressure monitor (Blood #1 ea 06/13/23 Pressure Kit) pen needle, diabetic 32 gauge x #100 ea 06/17/2332 (Pen Needle) albuterol sulfate 90 mcg/actuation 2 puff inhalation Q4-6H PRN 06/27/23 aerosol inhaler shortness of breath or wheezing #8.5 grams amitriptyline 25 mg tablet 25 mg PO HS 90 days #90 tabs 06/27/23 cyclobenzaprine 5 mg tablet See Rx Instructions .Route 06/27/23 .COMPLEX #90 tabs duloxetine 60 mg capsule,delayed See Rx Instructions .Route 06/27/23 release .COMPLEX #90 caps empagliflozin 25 mg tablet 25 mg PO DAILY 90 days #90 tabs 06/27/23 estradiol 2 mg tablet 8 mg (4 x 2 mg) PO DAILY 90 days 06/27/23 #360 tabs flash glucose scanning reader #1 ea 06/27/23 (FreeStyle Jayshree 14 Day [place]) flash glucose sensor (FreeStyle #1 ea 06/27/23 Jayshree 14 Day Sensor kit) insulin NPH-regular 70-30 U-100 63 unit (0.63 mL) SQ BID 90 days 06/27/23 insulin 100 unit/mL subcutaneous #113.4 mL pen (Humulin 70/30 U-100 KwikPen) insulin glargine 100 unit/mL (3 18 unit (0.18 mL) SQ HS 30 days 06/27/23 mL) subcutaneous pen (Lantus #5.4 mL Solostar U-100 Insulin) lancets 33 gauge (OneMiahuch Dellambert #100 ea 06/27/23 Plus Lancet) losartan 100 mg tablet 100 mg PO DAILY 90 days #90 tabs 06/27/23 metoprolol succinate 50 mg See Rx Instructions .Route 06/27/23 tablet,extended release 24 hr .COMPLEX 90 days #90 tabs pregabalin 150 mg capsule 150 mg PO TID pain 30 days #90 caps 06/27/23 rimegepant 75 mg disintegrating 75 mg PO NEEDED PRN migraine 06/27/23 tablet (Nurtec ODT) headache 90 days #30 tabs semaglutide 1 mg/dose (4 mg/3 mL) 1 mg (0.75 mL) SQ WEEKLY #3 mL 06/27/23 subcutaneous pen injector simvastatin 40 mg tablet See Rx Instructions .Route 06/27/23 .COMPLEX 90 days #90 tabs topiramate 100 mg tablet See Rx Instructions .Route 06/27/23 .COMPLEX migraine headache 90 days #300 tabs pantoprazole 40 mg tablet,delayed See Rx Instructions .Route 07/04/23 release .COMPLEX #30 tabs ferrous sulfate 325 mg (65 mg 325 mg PO BID #60 tabs 07/08/23 iron) tablet clindamycin HCl 300 mg capsule 300 mg PO TID 14 days #42 caps 07/11/23 montelukast 10 mg tablet See Rx Instructions .Route 07/18/23 .COMPLEX #90 tabs Allergies Allergy/AdvReac Type Severity Reaction Status Date / Time ranitidine [RANITIDINE] Allergy Severe Anaphylaxis Verified 07/25/23 11:46 adhesive tape [ADHESIVE TAPE] Allergy Intermediate I-RASH Verified 07/25/23 11:46 bupropion [BUPROPION] Allergy Intermediate I-HIVES Verified 07/25/23 11:46 butorphanol [BUTORPHANOL] Allergy Intermediate I-HIVES Verified 07/25/23 11:46 calcium [From DHEA] Allergy Intermediate I-HIVES Verified 07/25/23 11:46 calcium carbonate [From DHEA] Allergy Intermediate I-HIVES Verified 07/25/23 11:46 codeine [CODEINE] Allergy Intermediate I-HIVES Verified 07/25/23 11:46 hydromorphone [HYDROMORPHONE] Allergy Intermediate I-HIVES Verified 07/25/23 11:46 prasterone (DHEA) [From DHEA] Allergy Intermediate I-HIVES Verified 07/25/23 11:46 sumatriptan [From IMITREX] Allergy Intermediate I-HIVES Verified 07/25/23 11:46 hydrocodone [HYDROCODONE] Allergy Unknown I-ITCHING Verified 07/25/23 11:46 morphine [MORPHINE] Allergy Unknown HEADACHE Verified 07/25/23 11:46 oxycodone [From Percocet] Allergy Hives Verified 07/25/23 11:46 prochlorperazine Allergy Unknown Verified 07/25/23 11:46 [From Compazine] allergy reaction rizatriptan [From Maxalt] Allergy Unknown Verified 07/25/23 11:46 allergy reaction Penicillins AdvReac upset Verified 07/25/23 11:46 stomach PFSH PFSH Disclaimer: The information contained in this section may have been updated after the patient was seen, as this information can be updated by other users. Medical History Diastolic dysfunction Abnormal findings on diagnostic imaging of heart and coronary circulation Atypical angina delivery delivered Anxiety and depression Asthma HLD (hyperlipidemia) HTN (hypertension) Diabetes Ewa not having good blood sugar control at this point. Additionally she also has kidney disease. We will start her on empagliflozin at 10 mg/day. She is to stop her metformin in the next day start the empagliflozin. She is to continue to check her blood sugars on a regular basis I like to see her check them at least a couple times a day. Will see her back in about 1 week. She is to bring these back with her to her next visit. Addendum: Ewa's HbA1c came back at 8.8. Obviously would like to see this lower we will check her again in 3 months. Allergic rhinitis Dyspnea on exertion Left foot pain Migraine headache Neuropathy Nonunion of joint fusion Sprain of anterior talofibular ligament of left ankle Tear of peroneal tendon Dizziness Improved, denies further syncope. Positive tilt table test. BP dropped to 90/30 after 15 minutes with minimal compensatory tachycardia. Amitriptyline, furosemide, spironolactone have been discontinued with symptomatic improvement. She takes furosemide as needed only. 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 occupational exposures/hazards: No caffeine: Yes ROS Obtained: Yes Systems reviewed as appropriate & no additional complaints except as documented Physical Exam General General appearance: alert and in no apparent distress Head Head exam: atraumatic and normocephalic Eye Eye exam: Present PERRL and EOMI ENT ENT exam: Present mucous membranes moist Neck Neck exam: Present normal inspection Chest Chest inspection: Present normal inspection and symmetric chest wall rise Respiratory Respiratory exam: Present normal lung sounds bilaterally; Absent respiratory distress Cardiovascular Cardiovascular exam: Present regular rate and normal rhythm Abdominal Exam Abdominal exam: Present soft; Absent tenderness Extremities Exam Extremities exam: Present normal inspection Neurological Exam Neurological exam: Present alert; Absent motor sensory deficit Psychiatric Psychiatric exam: Present normal affect Skin Skin exam: Present warm and dry HEART Score HEART Score HEART Score assessment performed?: Yes History (anamnesis): Slightly suspicious ECG: Non-specific disturbance Age: 45-65 years Risk factors: 1-2 risk factors Troponin: </= normal limit HEART Score: 3 Procedures Miscellaneous Procedure Procedure Performed: Indication: Syncope Identified cardiac views: Cardiac parasternal long axis Findings: Cardiac activity present, no large pericardial effusion, gross wall motion normal Impression: -From above Images were saved to permanent archive The study was technically adequate CPT: 15983 This study was performed by me, and I personally interpreted all images/videos. Based on my clinical judgement, these images were adequate and did not necessitate further imaging. Critical Care Critical Care Time Critical Care Time: No Medical Decision Making Panchito Inquiry Pt receiving controlled substance: No Vital Signs Vital Signs: 08/04/23 15:26 08/04/23 16:45 08/04/23 17:00 Temperature 98.5 F Temperature Source Oral Pulse Rate 85 Pulse Rate [Left Radial] 87 Respiratory Rate 16 17 14 Blood Pressure 123/56 L 114/52 L Blood Pressure [Right Arm] 87/45 L Blood Pressure Mean [Right Arm] 59 Blood Pressure Source [Right Arm] Automatic Cuff Blood Pressure Position [Right Arm] Sitting 02 Sat by Pulse Oximetry 97 93 L Oxygen Delivery Method Room Air 08/04/23 17:19 08/04/23 17:30 08/04/23 17:53 Temperature Temperature Source Pulse Rate 86 86 85 Pulse Rate [Left Radial] Respiratory Rate 16 19 17 Blood Pressure 109/54 L 111/55 L 116/53 L Blood Pressure [Right Arm] Blood Pressure Mean [Right Arm] Blood Pressure Source [Right Arm] Blood Pressure Position [Right Arm] 02 Sat by Pulse Oximetry 97 96 94 L Oxygen Delivery Method Room Air Room Air Room Air 08/04/23 18:00 08/04/23 18:15 08/04/23 18:30 Temperature Temperature Source Pulse Rate 86 85 85 Pulse Rate [Left Radial] Respiratory Rate 15 15 17 Blood Pressure 105/53 L 115/53 L 135/70 Blood Pressure [Right Arm] Blood Pressure Mean [Right Arm] Blood Pressure Source [Right Arm] Blood Pressure Position [Right Arm] 02 Sat by Pulse Oximetry 98 98 93 L Oxygen Delivery Method Room Air 08/04/23 18:45 Temperature Temperature Source Pulse Rate 83 Pulse Rate [Left Radial] Respiratory Rate 15 Blood Pressure 139/72 Blood Pressure [Right Arm] Blood Pressure Mean [Right Arm] Blood Pressure Source [Right Arm] Blood Pressure Position [Right Arm] 02 Sat by Pulse Oximetry 94 L Oxygen Delivery Method Room Air Lab Data Labs: Lab Results 08/04/23 15:38: SARS-CoV-2 (PCR) Not detected, Influenza A Untype (PCR) Not detected, Influenza Type B (PCR) Not detected 08/04/23 15:40: WBC 7.9, RBC 4.60, Hgb 12.9, Hct 40.6, MCV 88.2, MCH 28.1, MCHC 31.9, RDW 21.3 H, Plt Count 249, MPV 10.0, Neut % (Auto) 41.4, Lymph % (Auto) 48.4, [place] % (Auto) 5.4, Eos % (Auto) 3.9, Baso % (Auto) 0.9, Neut # (Auto) 3.3, Lymph # (Auto) 3.8, [place] # (Auto) 0.4, Eos # (Auto) 0.3, Baso # (Auto) 0.1, D-Dimer 0.49, Sodium 135 L, Potassium 3.7, Chloride 101, Carbon Dioxide 19 L, Anion Gap 18.7 H, BUN 22 H, Creatinine 2.10 H, Estimated Creat Clear 43, Estimated GFR 24 L, Est GFR ( Amer) 29 L, Glucose 327 H, Calcium 8.5, Magnesium 1.8, Total Bilirubin 0.6, AST 49 H, ALT 30, Alkaline Phosphatase 114, Troponin I < 0.01, Total Protein 7.1, Albumin 3.7, Globulin 3.4 H, Albumin/Globulin Ratio 1.1, TSH 2.00, Free T4 0.87 08/04/23 16:01: VBG pH 7.35, VBG pCO2 35.4, VBG pO2 57.2 H, VBG HCO3 19.1 L, VBG Total CO2 20.2 L, VBG O2 Saturation 86.7 H, VBG Base Excess -6.5 L, VBG Lactic Acid 5.2 H 08/04/23 18:25: Urine Color Yellow, Urine Appearance Clear, Urine pH 6.5, Ur Specific [place] 1.010, Urine Protein Negative, Urine Glucose (UA) 2+, Urine Ketones Negative, Urine Blood Negative, Urine Nitrate Negative, Urine Bilirubin Negative, Urine Urobilinogen 0.2, Ur Leukocyte Esterase Negative, Urine RBC None, Urine WBC Occasional, Ur Squamous Epith Cells 20-50, Urine Bacteria Trace 08/04/23 19:00: Troponin I < 0.01 08/04/23 15:40 08/04/23 15:40 Response Orders (Tests/Meds): ED MEDICATIONS Generic Name Dose Route Start Last Admin Trade Name Freq PRN Reason Stop Dose Admin Miscellaneous 1 each 08/04/23 16:15 08/04/23 16:19 Vancomycin Consult Request NOTAPPLIC 09/03/23 16:14 1 each CONSULT PHARMACY DESTINY Administration Sodium Chloride 10 ml 08/04/23 17:51 08/04/23 17:52 Sodium Chloride 0.9% 10ml Syr (Rad Only) IV 09/03/23 17:50 10 ml NEEDED PRN Administration Maintain IV Site Discontinued Medications Generic Name Dose Route Start Last Admin Trade Name Freq PRN Reason Stop Dose Admin Aspirin 324 mg 08/04/23 15:55 08/04/23 16:03 Aspirin 81mg Chewable Tablet PO 08/04/23 15:56 324 mg ONCE ONE Administration Cefepime HCl 2 gm/ Sodium 100 mls @ 200 mls/hr 08/04/23 16:15 08/04/23 16:51 Chloride IV 08/04/23 16:44 200 mls/hr ONCE ONE Administration Metronidazole 500 mg in 100 mls @ 100 mls/hr 08/04/23 16:16 08/04/23 16:49 Flagyl 500mg/100ml Ivpb IV 08/04/23 17:15 100 mls/hr ONCE ONE Administration Vancomycin/PEG/NADA/Lysine/Water 1.75 gm in 350 mls @ 175 mls/hr 08/04/23 16:30 08/04/23 17:30 Vancomycin 1.75gm/350ml (Peg) Premix IV 08/04/23 18:29 175 mls/hr ONCE ONE Administration Lactated Ringer's 1,000 mls @ 999 mls/hr 08/04/23 17:28 08/04/23 18:01 Lactated Ringer's 1000 Ml Bag IV 08/04/23 18:28 999 mls/hr .Q1H1M ONE Administration Iopamidol 100 ml 08/04/23 17:51 08/04/23 17:52 Iopamidol-370 (76%);100ml Bottle IV 08/04/23 17:52 100 ml ONCE ONE Administration Sodium Chloride 50 ml 08/04/23 17:51 08/04/23 17:52 0.9 % Sodium Chloride 50 Ml Vial IV 08/04/23 17:52 50 ml ONCE ONE Administration ORDERS Category Date Time Status CT angio chest - dissection Stat Cat Scan 08/04/23 16:17 Completed CXR --portable [XR chest portable] Stat Exams 08/04/23 15:53 Completed POCUS Point of Care (ER Only) Stat Exams 08/04/23 16:23 Completed CBC w/Auto Diff [Complete Blood Count Auto Diff] Stat Lab 08/04/23 15:40 Completed CMP [Comprehensive Metabolic Panel] Stat Lab 08/04/23 15:40 Completed D-Dimer Stat Lab 08/04/23 15:40 Completed Free T4 (Free Thyroxine) Stat Lab 08/04/23 15:40 Completed MG [Magnesium] Stat Lab 08/04/23 15:40 Completed Rapid PCR Covid and Flu A/B Stat Lab 08/04/23 15:38 Completed TSH [Thyroid Stimulating Hormone] Stat Lab 08/04/23 15:40 Completed Trop I [Troponin I] Stat Lab 08/04/23 15:40 Completed Troponin I Q3H Lab 08/04/23 19:00 Completed Troponin I Q3H Lab 08/04/23 22:00 Ordered UA [Urinalysis and Microscopic] Stat Lab 08/04/23 18:25 Completed Blood Culture Stat Micro 08/04/23 16:24 Received VBG [Venous Blood Gas] Stat RT 08/04/23 16:01 Completed ECG Data Tracing #1: ECG Narrative: Independently interpreted by me, rate is 86, rhythm is regular, axis is normal, no ST elevation in anatomical contiguous leads, QTc 421, no evidence of Brugada, no dagger Q waves in the lateral leads. Q waves in the anterior leads not changed from prior. Tracing #2: ECG Narrative: Independently interpreted by me, rate is 83, rhythm is regular, axis is normal, no ST elevation in anatomical contiguous leads, QTc 419, no evidence of Brugada, no evidence of Wellens, no dagger Q waves in the lateral leads. MDM Narrative Medical Decision Narrative: In summary patient is a 57-year-old female past medical history described above presents emergency department for evaluation of syncope. Patient is hemodynamically stable nontoxic-appearing upon arrival, soft blood pressures, afebrile. Patient had blood pressure medication adjusted approximately 2 months ago, ultimately leading differential is that patient had an episode of vasovagal syncope secondary to overcontrolled blood pressure. She does not appear systemically ill from infection. She does have chest pain making ACS and pulmonary embolism a consideration. Workup will be conducted with hematologic labs, chest x-ray, EKG, troponins, D-dimer, VBG. Initial inventions include crystalloid bolus, aspirin. Initial workup reviewed by me, hematologic labs are remarkable for lactate of 5.2, ELINA, glucose 327, pH 7.35. Urinalysis interpreted by me not consistent with infection, viral swab negative. Coronary CTA shows no evidence of PE or dissection, diffuse esophageal wall thickening redemonstrated that may represent esophagitis. Given that patient has no infectious symptoms leading differential includes cardiogenic syncope versus medication adverse effect with hypotension and global hypoperfusion which raised her lactate. Spontaneous bacteremia is a consideration therefore blood cultures will be obtained and initial dose of antibiotics broad-spectrum will be administered. Second dose of crystalloid will be administered. Patient will benefit from cardiac monitoring overnight and likely cardiology evaluation and possible medication adjustment in the morning. The case was discussed with hospital medicine and patient will be admitted to their service for continued evaluation at this time.
--- NOTE | 2023-08-04 15:57 | PC.NURSE ---
aware of jerrica sinha
--- NOTE | 2023-08-04 16:00 | PC.NURSE ---
pt c/o chest pain, new ekg completed, aware
--- NOTE | 2023-08-04 16:01 | PC.NURSE ---
respiratory aware of vbg order and blood in lab
[2023-08-04 16:02] LABS: Basophils # 0.1 K/mm3 (0-0.2); Basophils % 0.9 % (0.1-2.0); Eosinophils # 0.3 K/mm3 (0.0-0.4); Eosinophils % 3.9 % (0.1-12.0); Hematocrit 40.6 % (37.0-47.0); Hemoglobin 12.9 g/dL (12.2-16.2); Lymphocytes # 3.8 K/mm3 (0.7-4.5); Lymphocytes % 48.4 % (10-50); Mean Corpuscular HGB Conc 31.9 g/dL (31.8-35.4); Mean Corpuscular Hemoglobin 28.1 pg (27.0-31.2); Mean Corpuscular Volume 88.2 fl (81-99); Monocytes # 0.4 K/mm3 (0.1-1.0); Monocytes % 5.4 % (1.7-9.3); Neutrophils # 3.3 K/mm3 (1.8-7.8); Neutrophils % 41.4 % (37.0-80.0); Platelet Count 249 K/mm3 (142-424); Red Cell Distribution Width 21.3 % (11.5-17.5); White Blood Count 7.9 K/mm3 (4.8-10.8)
[2023-08-04] MEDS: ASPIRIN 81MG CHEWABLE TABLET 324 MG PO (16:03)
--- NOTE | 2023-08-04 16:07 | PC.NURSE ---
rounded on pt at this time. informed pt that we do need to have a urine sample. pt reports that she is unable to provide one at this time. will check back with pt at another time.
[2023-08-04 16:08] LABS: VBG Base Excess -6.5 mmol/L (-2.4-2.3); VBG HCO3 19.1 mmol/L (23-30); VBG Oxygen Saturation 86.7 % (50-70); VBG PCO2 35.4 mmol/L (35-51); VBG PH 7.35 mmol/L (7.31-7.41); VBG PO2 57.2 mmol/L (28-40); VBG Total CO2 20.2 mmol/L (23-27)
[2023-08-04 16:09] LABS: Alanine Aminotransferase 30 U/L (12-78); Albumin Level 3.7 g/dl (3.5-5.0); Albumin/Globulin Ratio 1.1 (1.1-1.8); Alkaline Phosphatase 114 U/L (38-126); Anion Gap 18.7 mEq/L (5-15); Aspartate Amino Transferase 49 U/L (14-36); Bilirubin,Total 0.6 mg/dl (0.2-1.3); Blood Urea Nitrogen 22 mg/dl (7-17); Calcium 8.5 mg/dl (8.4-10.2); Carbon Dioxide 19 mmol/L (22.0-30.0); Chloride 101 mmol/L (98-107); Creatinine Clearance Estimated 43 mL/min (50-200); Estimated Glomerular Filt Rate 24 ml/min (>60); GFR (African American) 29 ML/MIN (>60); Globulin 3.4 g/dL (1.3-3.2); Glucose 327 mg/dl (74-100); Magnesium 1.8 mg/dl (1.6-2.3); Potassium 3.7 mmoL/L (3.5-5.1); Sodium 135 mmol/L (136-145); Total Protein,Serum 7.1 g/dl (6.3-8.2)
[2023-08-04 16:14] LABS: Lactate Venous 5.2 mmol/L (0.4-2.0)
[2023-08-04 16:14] LABS: D-Dimer 0.49 ug/mL (0.0-0.5)
--- NOTE | 2023-08-04 16:17 | CT_ITS ---
PROCEDURE INFORMATION: Exam: CTA Chest With Contrast Exam date and time: 08/04/2023 5:42 PM Age: 57 years old Clinical indication: Pain and abnormal findings; Other: Lactic 5; Chest wall pain; Additional info: Cp lactic 5 TECHNIQUE: Imaging protocol: Computed tomographic angiography of the chest with contrast. Exam focused on the arteries. 3D rendering (Not supervised by radiologist): MIP and/or 3D reconstructed images were created by the technologist. Radiation optimization: All CT scans at this facility use at least one of these dose optimization techniques: automated exposure control; mA and/or kV adjustment per patient size (includes targeted exams where dose is matched to clinical indication); or iterative reconstruction. Contrast material: ISOVUE; Contrast volume: 100 ml; Contrast route: INTRAVENOUS (IV); COMPARISON: CT ANGIO CHEST PE PROTOCOL 05/29/2023 9:02 AM and 11/13/2019 FINDINGS: Pulmonary arteries: Normal. No pulmonary emboli. Aorta: Unremarkable. No aortic aneurysm. No aortic dissection. Lungs: Unremarkable. No consolidation. No masses. Pleural spaces: Unremarkable. No pneumothorax. No pleural effusion. Heart: Unremarkable. No cardiomegaly. No pericardial effusion. Esophagus: Diffuse mild esophageal thickening of the noted similar to prior CT of 05/29/2023 and 11/13/2019 suggesting chronic finding. Lymph nodes: Unremarkable. No enlarged lymph nodes. Bones/joints: Unremarkable. No acute fracture. Soft tissues: Unremarkable. IMPRESSION: 1. No evident PE. No other acute findings. 2. Diffuse esophageal wall thickening redemonstrated that may reflect chronic esophagitis type changes.
--- NOTE | 2023-08-04 16:17 | PC.NURSE ---
spoke with Lion brown [facility] for vanc dosing
[2023-08-04] MEDS: VANCOMYCIN CONSULT REQUEST 1 EACH NOTAPPLIC (16:19)
[2023-08-04 16:23] LABS: Troponin I < 0.01 ng/ml (0.00-0.034)
[2023-08-04 16:27] LABS: Free T4 (Free Thyroxine) 0.87 ng/dl (0.78-2.19)
[2023-08-04] MEDS: METRONIDAZ/SOD CHL 500 MG/100 ML PIGGYBACK 100 MG IV (16:49)
[2023-08-04] MEDS: CEFEPIME HCL 2 GM in 0.9 % SODIUM CHLORIDE 100 ML IV (16:51)
--- NOTE | 2023-08-04 17:12 | PC.NURSE ---
PT AMBULATED TO RESTROOM WITH ASSIST X2
[2023-08-04] MEDS: VANCOMYCIN/WATER FOR INJ (PEG) 1.75 GM/350 ML PIGGYBACK IV (17:30)
--- NOTE | 2023-08-04 17:33 | HMH.ITSTN ---
GFR completion/results were overrode for the use of contrast media by the Physician on a risk vs. benefit situation with this patient.
[2023-08-04] MEDS: 0.9 % SODIUM CHLORIDE 50 ML VIAL IV (17:52)
[2023-08-04] MEDS: SODIUM CHLORIDE 0.9% 10ML SYR (RAD ONLY) 10 ML IV (17:52)
[2023-08-04] MEDS: IOPAMIDOL-370 (76%);100ML BOTTLE 100 ML IV (17:52)
[2023-08-04] MEDS: LACTATED RINGERS 1000ML 1,000 ML 999 ML IV (18:01)
[2023-08-04 18:29] LABS: Microscopic, Urine URINE MICROSCOPIC (MICROSCOPIC)
[2023-08-04 18:31] LABS: Appearance,Urine CLEAR (Clear); Bilirubin,Urine Negative (Negative); Blood, Urine Negative (Negative); Color,Urine YELLOW (Yellow); Glucose,Urine (UA) 2+ (Negative); Ketones,Urine Negative (Negative); Leukocyte Esterase,Urine Negative (Negative); Nitrate,Urine Negative (Negative); PH,Urine 6.5 (5.0-8.5); Protein,Urine Negative (Negative); Urobilinogen,Urine 0.2 EU/dl (0.2)
[2023-08-04 18:48] LABS: Bacteria,Urine Trace /lpf; Squamous Epithelial Cell,Urine 20-50 #/hpf (0-5); WBC,Urine Occasional #/hpf (0-3)
[2023-08-04 19:28] LABS: Troponin I < 0.01 ng/ml (0.00-0.034)
--- NOTE | 2023-08-04 19:39 | PC.NURSE ---
notified house of admit, dx: syncope
--- NOTE | 2023-08-04 20:03 | P.HP_ITS ---
History of Present Illness *Admission Date: 08/04/23 *Reason for visit:: Syncope *History of present illness: This is a 57-year-old female obese with PMHx of multiples comorbidities including but not linited to insulin-dependent diabetes, uncontrolled with complications, including neuropathy, atypical angina, diastolic disfunction, with low normal reduced ejection fraction, CKD, DONELL, previous syncope who presented to the emergency department for evaluation of syncope. Patient stated that being seated in her car and took a couple of steps and had an episode of syncope falling forwards into her yard. she stated 'she was out for couple of minutes . One neighbor who visualized the episode, helped her to get up. At that time her BP was low. Her previous episodes of syncope she has had tunnel vision however there was no preceding symptoms today. Subsequently patient had transient confusion which resolved prior to arrival. Patient has had 2-3 episodes of this over the last 2 years. Patient had blood pressure medications adjusted approximately 2 months ago. No other acute complaints at this time. Admitted for further management. [facility] Disclaimer: The information contained in this section may have been updated after the patient was seen, as this information can be updated by other users. Medical History Charcot's joint of foot Stage 3 chronic kidney disease Diastolic dysfunction Abnormal findings on diagnostic imaging of heart and coronary circulation Atypical angina delivery delivered Anxiety and depression Asthma HLD (hyperlipidemia) HTN (hypertension) Diabetes Allergic rhinitis Dyspnea on exertion Left foot pain Migraine headache Neuropathy Nonunion of joint fusion Sprain of anterior talofibular ligament of left ankle Tear of peroneal tendon Dizziness Dyspnea Encounter for pre-operative cardiovascular clearance Surgical History H/O eye surgery S/P cholecystectomy H/O: hysterectomy S/P carpal tunnel release Status post ankle fusion Status post surgical manipulation of ankle joint Family History Other Cancer Coronary artery disease Diabetes Hypertension Social History Smoking Status: Former smoker tobacco type: cigarettes packs per day: 1 second hand exposure: No alcohol intake: never substance use type: denies use current occupational status: retired Travel in the last 8 weeks: None household members: spouse housing: house marital status: 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 current occupational exposures/hazards: No caffeine: Yes Review of Systems Review of Systems Review of systems:: pertinent systems reviewed and negative unless documented below Meds Home Medications and Allergies Home Medications Medication Instructions Recorded Confirmed Type ascorbic acid (vitamin C) 100 mg 100 mg PO DAILY Supplement 08/28/22 08/04/23 History tablet (Vitamin C) zinc 10 mg tablet 10 mg PO DAILY Supplement 08/28/22 08/04/23 History fluticasone furoate 100 1 inh inhalation DAILY allergies 02/07/23 08/05/23 Rx mcg-vilanterol 25 mcg/dose 90 days #60 ea inhalation powder (Breo Ellipta) vitamin B12 0.5 mg-folic acid 1 mg 1 tab PO DAILY Supplement 90 days 02/07/23 08/04/23 Rx tablet #90 tabs triamterene 37.5 1 cap PO DAILY #90 caps 06/11/23 08/05/23 Rx mg-hydrochlorothiazide 25 mg capsule blood pressure monitor (Blood #1 ea 06/13/23 08/04/23 Rx Pressure Kit) pen needle, diabetic 32 gauge x #100 ea 06/17/23 08/04/23 Rx 5/32 (Pen Needle) albuterol sulfate 90 mcg/actuation 2 puff inhalation Q4-6H PRN 06/27/23 08/05/23 Rx aerosol inhaler shortness of breath or wheezing #8.5 grams amitriptyline 25 mg tablet 25 mg PO HS 90 days #90 tabs 06/27/23 08/04/23 Rx empagliflozin 25 mg tablet 25 mg PO DAILY 90 days #90 tabs 06/27/23 08/05/23 Rx estradiol 2 mg tablet 8 mg (4 x 2 mg) PO DAILY 90 days 06/27/23 08/05/23 Rx #360 tabs flash glucose scanning reader #1 ea 06/27/23 08/04/23 Rx (FreeStyle Jayshree 14 Day [place]) flash glucose sensor (FreeStyle #1 ea 06/27/23 08/04/23 Rx Jayshree 14 Day Sensor kit) insulin NPH-regular 70-30 U-100 63 unit (0.63 mL) SQ BID 90 days 06/27/23 08/05/23 Rx insulin 100 unit/mL subcutaneous #113.4 mL pen (Humulin 70/30 U-100 KwikPen) insulin glargine 100 unit/mL (3 18 unit (0.18 mL) SQ HS 30 days 06/27/23 08/05/23 Rx mL) subcutaneous pen (Lantus #5.4 mL Solostar U-100 Insulin) lancets 33 gauge (AlexTouch [place] #100 ea 06/27/23 08/04/23 Rx Plus Lancet) pregabalin 150 mg capsule 150 mg PO TID pain 30 days #90 caps 06/27/23 08/04/23 Rx rimegepant 75 mg disintegrating 75 mg PO NEEDED PRN migraine 06/27/23 08/05/23 Rx tablet (Nurtec ODT) headache 90 days #30 tabs semaglutide 1 mg/dose (4 mg/3 mL) 1 mg (0.75 mL) SQ WEEKLY #3 mL 06/27/23 08/05/23 Rx subcutaneous pen injector aspirin 81 mg tablet,delayed 81 mg PO DAILY 08/04/23 08/05/23 History release cholecalciferol (vitamin D3) 50 50 mcg PO DAILY supplement 08/04/23 08/04/23 History mcg (2,000 unit) capsule (Vitamin D3) duloxetine 60 mg capsule,delayed 60 mg PO HS 08/04/23 08/04/23 History release ferrous gluconate 225 mg (27 mg 225 mg PO DAILY 08/04/23 08/04/23 History iron) tablet (Fergon) metoprolol succinate 50 mg 75 mg PO HS BP 08/04/23 08/04/23 History tablet,extended release 24 hr montelukast 10 mg tablet 10 mg PO HS 08/04/23 08/04/23 History pantoprazole 40 mg tablet,delayed 40 mg PO DAILY 08/04/23 08/04/23 History release cyclobenzaprine 5 mg tablet 5 mg PO BID PRN muscle spasms 08/05/23 08/05/23 History losartan 100 mg tablet 50 mg (1/2 x 100 mg) PO DAILY 90 08/05/23 08/04/23 Rx days #90 tabs simvastatin 40 mg tablet 40 mg PO HS 08/05/23 08/05/23 History topiramate 150 mg capsule 150 mg PO DAILY 08/05/23 08/05/23 History sprinkle,extended release 24 hr New Prescriptions to Start Prescriptions: Allergies Allergy/AdvReac Type Severity Reaction Status Date / Time ranitidine [RANITIDINE] Allergy Severe Anaphylaxis Verified 07/25/23 11:46 adhesive tape [ADHESIVE TAPE] Allergy Intermediate I-RASH Verified 07/25/23 11:46 bupropion [BUPROPION] Allergy Intermediate I-HIVES Verified 07/25/23 11:46 butorphanol [BUTORPHANOL] Allergy Intermediate I-HIVES Verified 07/25/23 11:46 calcium [From DHEA] Allergy Intermediate I-HIVES Verified 07/25/23 11:46 calcium carbonate [From DHEA] Allergy Intermediate I-HIVES Verified 07/25/23 11:46 codeine [CODEINE] Allergy Intermediate I-HIVES Verified 07/25/23 11:46 hydromorphone [HYDROMORPHONE] Allergy Intermediate I-HIVES Verified 07/25/23 11:46 prasterone (DHEA) [From DHEA] Allergy Intermediate I-HIVES Verified 07/25/23 11:46 sumatriptan [From IMITREX] Allergy Intermediate I-HIVES Verified 07/25/23 11:46 hydrocodone [HYDROCODONE] Allergy Unknown I-ITCHING Verified 07/25/23 11:46 morphine [MORPHINE] Allergy Unknown HEADACHE Verified 07/25/23 11:46 oxycodone [From Percocet] Allergy Hives Verified 07/25/23 11:46 prochlorperazine Allergy Unknown Verified 07/25/23 11:46 [From Compazine] allergy reaction rizatriptan [From Maxalt] Allergy Unknown Verified 07/25/23 11:46 allergy reaction Penicillins AdvReac upset Verified 07/25/23 11:46 stomach Exam Data for Last 24 hours Vital signs and Labs for Last 24 Hours: Temp Pulse Resp BP Pulse Ox O2 Del Method 98.5 F 83 15 139/72 94 L Room Air 08/04/23 15:26 08/04/23 18:45 08/04/23 18:45 08/04/23 18:45 08/04/23 18:45 08/04/23 18:45 Laboratory Results - last 24 hr 08/04/23 15:38: SARS-CoV-2 (PCR) Not detected, Influenza A Untype (PCR) Not detected, Influenza Type B (PCR) Not detected 08/04/23 15:40: WBC 7.9, RBC 4.60, Hgb 12.9, Hct 40.6, MCV 88.2, MCH 28.1, MCHC 31.9, RDW 21.3 H, Plt Count 249, MPV 10.0, Neut % (Auto) 41.4, Lymph % (Auto) 48.4, [place] % (Auto) 5.4, Eos % (Auto) 3.9, Baso % (Auto) 0.9, Neut # (Auto) 3.3, Lymph # (Auto) 3.8, [place] # (Auto) 0.4, Eos # (Auto) 0.3, Baso # (Auto) 0.1, D- Dimer 0.49, Sodium 135 L, Potassium 3.7, Chloride 101, Carbon Dioxide 19 L, Anion Gap 18.7 H, BUN 22 H, Creatinine 2.10 H, Estimated Creat Clear 43, Estimated GFR 24 L, Est GFR ( Amer) 29 L, Glucose 327 H, Calcium 8.5, Magnesium 1.8, Total Bilirubin 0.6, AST 49 H, ALT 30, Alkaline Phosphatase 114, Troponin I < 0.01, Total Protein 7.1, Albumin 3.7, Globulin 3.4 H, Albumin/Globulin Ratio 1.1, TSH 2.00, Free T4 0.87 08/04/23 16:01: VBG pH 7.35, VBG pCO2 35.4, VBG pO2 57.2 H, VBG HCO3 19.1 L, VBG Total CO2 20.2 L, VBG O2 Saturation 86.7 H, VBG Base Excess -6.5 L, VBG Lactic Acid 5.2 H 08/04/23 18:25: Urine Color Yellow, Urine Appearance Clear, Urine pH 6.5, Ur Specific Joiner 1.010, Urine Protein Negative, Urine Glucose (UA) 2+, Urine Ketones Negative, Urine Blood Negative, Urine Nitrate Negative, Urine Bilirubin Negative, Urine Urobilinogen 0.2, Ur Leukocyte Esterase Negative, Urine RBC None, Urine WBC Occasional, Ur Squamous Epith Cells 20-50, Urine Bacteria Trace 08/04/23 19:00: Troponin I < 0.01 Temp Pulse Resp BP Pulse Ox 98.1 F 74 14 149/73 H 96 08/29/22 14:01 05/10/23 14:01 08/29/22 14:01 08/29/22 14:01 08/29/22 14:01 Laboratory Results - last 24 hr 08/29/22 06:15: SARS-CoV-2 (PCR) Not detected, Influenza A Untype (PCR) Not detected, Influenza Type B (PCR) Not detected 08/29/22 06:42: POC Glucose 78 08/29/22 08:00: Urine Color Yellow, Urine Appearance Clear, Urine pH 6.0, Ur Specific Joiner 1.025, Urine Protein Negative, Urine Glucose (UA) Negative, Urine Ketones Trace, Urine Blood Negative, Urine Nitrate Negative, Urine Bilirubin Negative, Urine Urobilinogen 0.2, Ur Leukocyte Esterase Negative, Urine RBC None, Urine WBC None, Ur Squamous Epith Cells Occasional, Calcium Oxalate Crystal 2+, Urine Bacteria Trace 08/29/22 09:57: POC Glucose 80 08/29/22 13:47: POC Glucose 102 I & O for Last 24 hours: Intake & Output 08/01/23 08/02/23 08/03/23 08/04/23 23:59 23:59 23:59 23:59 Weight 90.718 kg Intake & Output 08/26/22 08/27/22 08/28/22 08/29/22 23:59 23:59 23:59 23:59 Intake Total 1100 / 1100 Balance 1100 / 1100 Weight 108.862 kg Constitutional Constitutional: no acute distress, chronically ill appearing and cooperative *Routine HEENT Exam Head: Present normocephalic Eye: Present EOMI and PERRL ENT: Present mucous membranes moist *Routine Neck Exam Neck: Present supple and full ROM; Absent JVD *Routine Respiratory Exam Respiratory: Present rhonchi, normal respiratory effort and symmetric chest movement *Routine Cardiovascular Exam Cardiovascular: Present RRR *Routine Abdominal Exam Abdominal: Present soft and normoactive bowel sounds; Absent tenderness *Routine Rectal Exam Rectal:: deferred *Routine Genitalia Exam Genitalia:: deferred *Routine Extremities Exam Extremities: Present pulses intact; Absent cyanosis, clubbing or edema Comments: Right lower extremity in orthopedic device with cooling equipment *Routine Skin Exam Skin: Present warm; Absent rash *Routine Neurological Exam Neurological: Present alert, oriented X3, moving all extremities, vision grossly intact, hearing grossly intact and normal speech; Absent sensory deficit or motor deficit Routine Psychiatric Exam Psychiatric: Present normal affect, normal thought process, cooperative, good insight and good judgment H&P: Result Imaging and Cardiology EKG: Status: image reviewed by me, Preliminary report and final report CT scan - chest: Status: image reviewed by me, Preliminary report and final report Assessment and Plan *Assessment and plan (1) Syncope: Status: Acute Qualifiers: Syncope type: unspecified Qualified Code(s): R55 - Syncope and collapse Category: Medical Code(s): R55 - Syncope and collapse (2) Acute kidney injury superimposed on CKD: Status: Acute Category: Medical Code(s): N17.9 - Acute kidney failure, unspecified; N18.9 - Chronic kidney disease, unsp ecified (3) Acidosis, lactic: Status: Acute Category: Medical Code(s): E87.20 - Acidosis, unspecified (4) Diastolic dysfunction: Status: Acute Category: Medical Code(s): I51.89 - Other ill-defined heart diseases (5) IDDM (insulin dependent diabetes mellitus): Status: Chronic Category: Medical Code(s): E11.9 - Type 2 diabetes mellitus without complications; Z79.4 - sports activities foul judge (current) use of insulin (6) Hypertension: Problem Comment: Blood pressure today is 122/64. Her blood pressures have been doing fairly well over the last couple of months. Will continue current therapy. Status: Chronic Qualifiers: Hypertension type: essential hypertension Qualified Code(s): I10 - Essential (primary) hypertension Category: Medical Code(s): I10 - Essential (primary) hypertension (7) GERD (gastroesophageal reflux disease): Status: Chronic Qualifiers: Esophagitis presence: esophagitis presence not specified Qualified Code(s): K21.9 - Gastro-esophageal reflux disease without esophagitis Category: Medical Code(s): K21.9 - Gastro-esophageal reflux disease without esophagitis (8) DONELL on CPAP: Problem Comment: She is currently on CPAP and she states she is doing well with this currently. Status: Chronic Category: Medical Code(s): G47.33 - Obstructive sleep apnea (adult) (pediatric); Z99.89 - Dependence on other enabling machines and devices (9) Morbid obesity with body mass index (BMI) of 40.0 to 49.9: Problem Comment: The SGLT inhibitors may help with weight loss. Status: Acute Category: Medical Code(s): E66.01 - Morbid (severe) obesity due to excess calories Plan 57-year-old female obese with PMHx of multiples comorbidities including but not linited to insulin-dependent diabetes, uncontrolled with complications, including neuropathy, atypical angina, diastolic disfunction, with low normal reduced ejection fraction, CKD, DONELL, previous syncope who presented to the emergency department for evaluation of syncope. Syncope: Admit patient for continuous cardiac monitoring. Dispo med Surg obtain Orthostatic BP US of carotid ECHO and cardiac MRI recent from April.Reviewed Cardiology consult ELINA on CKD lactic acidosis : suspected prerenal. dehydration. one bolus given at ER. Vancomycin discontinued encouraged to increased PO intake and hydration repeat lab in the morning monitor reanl function including output. adjusted lyrica to 300mg daily. avoid nephrotoxic medications as possible HFrEF: last ECHO and cardiac MRI from april showed slightly reduced EF. will deferred to cardiology to manage does not seen to be on exacerbation patient may need to adjust medication regimen patient on triamterene hydrochlorothiazide Diabetes with peripheral neuropathy Hemoglobin A1c evaluation Routine blood sugar monitoring Basal insulin therapy 70/30 and lantus Sliding scale insulin therapy Consistent carbohydrate diabetic diet Hypertension Routine blood pressure monitoring on metoprolol 75mg and losartan 100mg. medication held until further eval BMI 43/OIHS/DONELL Nutrition education NIPPV therapy (CPAP) Calorie appropriate diet Complicates all aspects of care VTE prophylaxis: Lovenox CODE STATUS: Full code Rounded on patient after nurse practitioner. Personally examined and interviewed patient. Agree with exam findings and care plan as documented.
[2023-08-04 20:10] LABS: Reflex Lactic Add Lactic Reflex
--- NOTE | 2023-08-04 20:11 | PC.NURSE ---
Patient arrived to floor via [facility] ED at 20:07.
[2023-08-04 22:59] LABS: POC Glucose,Bedside 264 (70-110)
[2023-08-04 23:01] LABS: Troponin I < 0.01 ng/ml (0.00-0.034)
[2023-08-04] MEDS: ENOXAPARIN 40MG/0.4ML SYRINGE 40 MG SQ (23:35)
[2023-08-04] MEDS: humaLOG MIX 75/25 3ML FLEXPEN 63 UNIT SQ (23:35)
[2023-08-04] MEDS: PANTOPRAZOLE 40MG TABLET 40 MG PO (23:35)
[2023-08-05] VITALS (7 sets, daily range): BP systolic 104–146; BP diastolic 59–80; PULSE 63–86; RESP 16–18; TEMP 36.5–36.6; O2SAT 92–98; BMI 42.2
[2023-08-05] MEDS: PATIENT'S OWN HOME MEDICATION (Pregabalin 150 mg capsule) 150 EACH PO (02:18)
--- NOTE | 2023-08-05 03:52 | CA_ITS ---
FINAL REPORT TECHNIQUE: Real-time imaging was performed of the extracranial carotid arteries in transverse and longitudinal planes with color duplex evaluation of blood flow velocity. Spectral analysis was performed. The cervicovertebral arteries were also examined. Stenosis evaluation based on elevated velocity criteria. CLINICAL HISTORY: syncope, dm, htn, hld, ex smoker FINDINGS: FINDINGS: RIGHT CAROTID: CCA PSV: 107 cm/sec ICA PSV: 89 cm/sec ECA PSV: 115 cm/sec ICA/CCA systolic flow velocity ratio: 1.2 Minimal atherosclerotic plaque is noted. Narrowing is classified in the less than 50% category. LEFT CAROTID: CCA PSV: 115 cm/sec ICA PSV: 124 cm/sec ECA PSV: 99 cm/sec ICA/CCA systolic flow velocity ratio: 1.6 Minimal atherosclerotic plaque is noted. Narrowing is classified in the 50% category. VERTEBRALS: Vertebral arteries are patent with antegrade flow and expected spectral waveforms. IMPRESSION: Less than 50% carotid artery stenosis. Patent vertebral arteries. Reviewed, Interpreted and Dictated by Remberto Bose MD Transcribed by Alyssa Pickett Authenticated and [facility]
[2023-08-05 06:41] LABS: Basophils # 0.1 K/mm3 (0-0.2); Eosinophils # 0.4 K/mm3 (0.0-0.4); Eosinophils % 5.7 % (0.1-12.0); Hematocrit 38.6 % (37.0-47.0); Hemoglobin 12.7 g/dL (12.2-16.2); Lymphocytes # 2.6 K/mm3 (0.7-4.5); Lymphocytes % 42.3 % (10-50); Mean Corpuscular Hemoglobin 28.3 pg (27.0-31.2); Mean Platelet Volume 9.6 fl (7.4-10.4); Monocytes # 0.4 K/mm3 (0.1-1.0); Monocytes % 6.9 % (1.7-9.3); Neutrophils # 2.7 K/mm3 (1.8-7.8); Neutrophils % 44.1 % (37.0-80.0); Platelet Count 223 K/mm3 (142-424); Red Blood Count 4.49 M/mm3 (4.20-5.40); Red Cell Distribution Width 21.1 % (11.5-17.5); White Blood Count 6.2 K/mm3 (4.8-10.8)
[2023-08-05 07:09] LABS: Chloride 105 mmol/L (98-107)
[2023-08-05 07:10] LABS: Potassium 3.1 mmoL/L (3.5-5.1); Sodium 137 mmol/L (136-145)
[2023-08-05] MEDS: humaLOG 100 UNITS/ML 3ML VIAL (SSI) SQ ×2 (07:10→11:45)
[2023-08-05 07:12] LABS: Alanine Aminotransferase 18 U/L (12-78); Albumin Level 3.2 g/dl (3.5-5.0); Alkaline Phosphatase 121 U/L (38-126); Anion Gap 10.1 mEq/L (5-15); Aspartate Amino Transferase 35 U/L (14-36); Bilirubin,Total 0.4 mg/dl (0.2-1.3); Blood Urea Nitrogen 21 mg/dl (7-17); Carbon Dioxide 25 mmol/L (22.0-30.0); Cholesterol 187 mg/dl (140-200); Creatinine Clearance Estimated 32 mL/min (50-200); Estimated Glomerular Filt Rate 31 ml/min (>60); GFR (African American) 38 ML/MIN (>60); Globulin 3.2 g/dL (1.3-3.2); Total Protein,Serum 6.4 g/dl (6.3-8.2)
[2023-08-05 07:13] LABS: Calcium 8.5 mg/dl (8.4-10.2); Chol/HDL Ratio 7.2 (1-3.5); Glucose 166 mg/dl (74-100); HDL Cholesterol 26 mg/dl (40-60); Magnesium 1.9 mg/dl (1.6-2.3); Phosphorous 5.7 mg/dl (2.5-4.5)
[2023-08-05 07:17] LABS: POC Glucose,Bedside 203 (70-110)
[2023-08-05 07:20] LABS: Triglycerides 979 mg/dl (30-150)
[2023-08-05 07:24] LABS: Direct LDL Cholesterol 53.33 mg/dL (100-129)
[2023-08-05 07:43] LABS: Hemoglobin A1C 9.6 % (4.0-6.0)
--- NOTE | 2023-08-05 07:50 | HMH.PHAINT1 ---
Pharmacy Intervention Comments: HOME MEDICATION LIST VERIFIFED VIA OUTSIDE PHARMACY, OFFIC LIST, AND PATIENT
[2023-08-05] MEDS: PREGABALIN 50MG CAPSULE 150 MG PO (09:34)
[2023-08-05] MEDS: POTASSIUM CHLORIDE 20MEQ TAB 40 MEQ PO (09:35)
[2023-08-05] MEDS: ENOXAPARIN 40MG/0.4ML SYRINGE 40 MG SQ (09:36)
--- NOTE | 2023-08-05 10:57 | EXP.CARD.CON ---
History of Present Illness History of Present Illness Consult date: 08/05/23 Requesting physician: Chandler Cardoso Chief complaint: syncope Additional Medical History:: History of present illness: 57-year-old white female established patient of our office with history of normal coronaries 2019, BMI 42, elevated end-diastolic pressure, normal cardiac MRI May 2023, poorly controlled insulin-dependent diabetes mellitus. Patient reports over the past several weeks she has had worsening polyuria but did not compensate with increased hydration. Yesterday at [employer] every time she stood up she felt slightly lightheaded and would have to sit back down. After leaving [employer] she got up from her car and had complete loss of consciousness and fell onto the ground. She presented to the emergency room for evaluation. Workup included lactic acidosis 5.2, ELINA with creatinine up from 1.[address] to 2.1. Her glucose is 327, her A1c was 9.6. EKG showed sinus rhythm with IVCD in the anterior leads versus Q waves which is unchanged from 2022. Her orthostatic vital signs are normal. She received a liter of lactated Ringer's and a liter of normal saline and reports feeling back to baseline this morning with no weakness or lightheadedness upon standing to go to the restroom several times. [facility] Disclaimer: The information contained in this section may have been updated after the patient was seen, as this information can be updated by other users. Medical History Charcot's joint of foot Stage 3 chronic kidney disease Diastolic dysfunction Abnormal findings on diagnostic imaging of heart and coronary circulation Atypical angina delivery delivered Anxiety and depression Asthma HLD (hyperlipidemia) HTN (hypertension) Diabetes Allergic rhinitis Dyspnea on exertion Left foot pain Migraine headache Neuropathy Nonunion of joint fusion Sprain of anterior talofibular ligament of left ankle Tear of peroneal tendon Dizziness Dyspnea Encounter for pre-operative cardiovascular clearance Surgical History H/O eye surgery S/P cholecystectomy H/O: hysterectomy S/P carpal tunnel release Status post ankle fusion Status post surgical manipulation of ankle joint Family History Other Cancer Coronary artery disease Diabetes Hypertension Social History Smoking Status: Former smoker tobacco type: cigarettes packs per day: 1 second hand exposure: No alcohol intake: never substance use type: denies use current occupational status: retired Travel in the last 8 weeks: None household members: spouse housing: house marital status: 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 current occupational exposures/hazards: No caffeine: Yes Review of Systems Constitutional Constitutional: Denies fatigue and Reports weakness Comments: Syncope Eyes Eyes: Denies loss of vision ENT Ears, Nose, Mouth, and Throat: Denies hearing loss and Reports vertigo *Cardiovascular Cardiovascular: Denies chest pain, Denies dyspnea and Reports syncope *Respiratory Respiratory: Denies cough and Denies dyspnea *Gastrointestinal Gastrointestinal: Denies change in stool character, Denies nausea and Denies vomiting *Musculoskeletal Musculoskeletal: Denies muscle weakness Integumentary/Breasts Skin/Breast: Denies changing lesions *Neurologic Neurologic: Denies loss of vision, Reports syncope, Reports vertigo and Reports weakness Endocrine Endocrine: Denies fatigue Exam Data for Last 24 hours Vital signs and Labs for Last 24 Hours: Temp Pulse Resp BP Pulse Ox O2 Del Method 97.8 F 77 17 146/75 H 98 Room Air 08/05/23 07:47 08/05/23 07:47 08/05/23 07:47 08/05/23 07:54 08/05/23 07:47 08/05/23 09:30 Laboratory Results - last 24 hr 08/04/23 15:38: SARS-CoV-2 (PCR) Not detected, Influenza A Untype (PCR) Not detected, Influenza Type B (PCR) Not detected 08/04/23 15:40: WBC 7.9, RBC 4.60, Hgb 12.9, Hct 40.6, MCV 88.2, MCH 28.1, MCHC 31.9, RDW 21.3 H, Plt Count 249, MPV 10.0, Neut % (Auto) 41.4, Lymph % (Auto) 48.4, [place] % (Auto) 5.4, Eos % (Auto) 3.9, Baso % (Auto) 0.9, Neut # (Auto) 3.3, Lymph # (Auto) 3.8, [place] # (Auto) 0.4, Eos # (Auto) 0.3, Baso # (Auto) 0.1, D-Dimer 0.49, Sodium 135 L, Potassium 3.7, Chloride 101, Carbon Dioxide 19 L, Anion Gap 18.7 H, BUN 22 H, Creatinine 2.10 H, Estimated Creat Clear 43, Estimated GFR 24 L, Est GFR ( Amer) 29 L, Glucose 327 H, Calcium 8.5, Magnesium 1.8, Total Bilirubin 0.6, AST 49 H, ALT 30, Alkaline Phosphatase 114, Troponin I < 0.01, Total Protein 7.1, Albumin 3.7, Globulin 3.4 H, Albumin/Globulin Ratio 1.1, TSH 2.00, Free T4 0.87 08/04/23 16:01: VBG pH 7.35, VBG pCO2 35.4, VBG pO2 57.2 H, VBG HCO3 19.1 L, VBG Total CO2 20.2 L, VBG O2 Saturation 86.7 H, VBG Base Excess -6.5 L, VBG Lactic Acid 5.2 H 08/04/23 18:25: Urine Color Yellow, Urine Appearance Clear, Urine pH 6.5, Ur Specific [place] 1.010, Urine Protein Negative, Urine Glucose (UA) 2+, Urine Ketones Negative, Urine Blood Negative, Urine Nitrate Negative, Urine Bilirubin Negative, Urine Urobilinogen 0.2, Ur Leukocyte Esterase Negative, Urine RBC None, Urine WBC Occasional, Ur Squamous Epith Cells 20-50, Urine Bacteria Trace 08/04/23 19:00: Troponin I < 0.01 08/04/23 20:46: POC Glucose 264 H 08/04/23 22:10: Lactate 2.0, Troponin I < 0.01 08/05/23 06:15: WBC 6.2, RBC 4.49, Hgb 12.7, Hct 38.6, MCV 86.0, MCH 28.3, MCHC 33.0, RDW 21.1 H, Plt Count 223, MPV 9.6, Neut % (Auto) 44.1, Lymph % (Auto) 42.3, [place] % (Auto) 6.9, Eos % (Auto) 5.7, Baso % (Auto) 1.0, Neut # (Auto) 2.7, Lymph # (Auto) 2.6, [place] # (Auto) 0.4, Eos # (Auto) 0.4, Baso # (Auto) 0.1, Sodium 137, Potassium 3.1 L, Chloride 105, Carbon Dioxide 25, Anion Gap 10.1, BUN 21 H, Creatinine 1.70 H, Estimated Creat Clear 32, Estimated GFR 31 L, Est GFR ( Amer) 38 L D, Glucose 166 H D, Hemoglobin A1c 9.6 H, Calcium 8.5, Phosphorus 5.7 H, Magnesium 1.9, Total Bilirubin 0.4, AST 35 D, ALT 18 D, Alkaline Phosphatase 121, Total Protein 6.4, Albumin 3.2 L D, Globulin 3.2, Albumin/Globulin Ratio 1.0 L, Triglycerides 979 H, Cholesterol 187, LDL Cholesterol Direct 53.33 L, HDL Cholesterol 26 L, Cholesterol/HDL Ratio 7.2 H 08/05/23 07:05: POC Glucose 203 H I & O for Last 24 hours: Intake & Output 08/02/23 08/03/23 08/04/23 08/05/23 23:59 23:59 23:59 23:59 Intake Total 1999 420 / 420 Output Total 950 / 950 Balance 1999 -530 / -530 Weight 252 lb 247 lb 4.8 oz Constitutional Constitutional: no acute distress and cooperative *Routine HEENT Exam Eye: Present PERRL *Routine Respiratory Exam Respiratory: Present CTA bilaterally; Absent accessory muscle use, wheezes or crackles *Routine Cardiovascular Exam Cardiovascular: Present RRR, Normal S1 and Normal S2; Absent murmur, gallop or rubs *Routine Abdominal Exam Abdominal: Present soft; Absent tenderness *Routine Extremities Exam Extremities: Present pulses intact; Absent cyanosis or edema *Routine Skin Exam Skin: Present intact; Absent erythema or wounds *Routine Neurological Exam Neurological: Present alert and oriented X3 Routine Psychiatric Exam Psychiatric: Present cooperative Meds Home Medications and Allergies Home Medications Medication Instructions Recorded Confirmed Type ascorbic acid (vitamin C) 100 mg 100 mg PO DAILY Supplement 08/28/22 08/04/23 History tablet (Vitamin C) zinc 10 mg tablet 10 mg PO DAILY Supplement 08/28/22 08/04/23 History fluticasone furoate 100 1 inh inhalation DAILY allergies 02/07/23 08/05/23 Rx mcg-vilanterol 25 mcg/dose 90 days #60 ea inhalation powder (Breo Ellipta) vitamin B12 0.5 mg-folic acid 1 mg 1 tab PO DAILY Supplement 90 days 02/07/23 08/04/23 Rx tablet #90 tabs triamterene 37.5 1 cap PO DAILY #90 caps 06/11/23 08/05/23 Rx mg-hydrochlorothiazide 25 mg capsule blood pressure monitor (Blood #1 ea 06/13/23 08/04/23 Rx Pressure Kit) pen needle, diabetic 32 gauge x #100 ea 06/17/23 08/04/23 Rx 5/32 (Pen Needle) albuterol sulfate 90 mcg/actuation 2 puff inhalation Q4-6H PRN 06/27/23 08/05/23 Rx aerosol inhaler shortness of breath or wheezing #8.5 grams amitriptyline 25 mg tablet 25 mg PO HS 90 days #90 tabs 06/27/23 08/04/23 Rx empagliflozin 25 mg tablet 25 mg PO DAILY 90 days #90 tabs 06/27/23 08/05/23 Rx estradiol 2 mg tablet 8 mg (4 x 2 mg) PO DAILY 90 days 06/27/23 08/05/23 Rx #360 tabs flash glucose scanning reader #1 ea 06/27/23 08/04/23 Rx (FreeStyle Jayshree 14 Day [place]) flash glucose sensor (FreeStyle #1 ea 06/27/23 08/04/23 Rx Jayshree 14 Day Sensor kit) insulin NPH-regular 70-30 U-100 63 unit (0.63 mL) SQ BID 90 days 06/27/23 08/05/23 Rx insulin 100 unit/mL subcutaneous #113.4 mL pen (Humulin 70/30 U-100 KwikPen) insulin glargine 100 unit/mL (3 18 unit (0.18 mL) SQ HS 30 days 06/27/23 08/05/23 Rx mL) subcutaneous pen (Lantus #5.4 mL Solostar U-100 Insulin) lancets 33 gauge (OneTouch Delica #100 ea 06/27/23 08/04/23 Rx Plus Lancet) losartan 100 mg tablet 100 mg PO DAILY 90 days #90 tabs 06/27/23 08/04/23 Rx pregabalin 150 mg capsule 150 mg PO TID pain 30 days #90 caps 06/27/23 08/04/23 Rx rimegepant 75 mg disintegrating 75 mg PO NEEDED PRN migraine 06/27/23 08/05/23 Rx tablet (Nurtec ODT) headache 90 days #30 tabs semaglutide 1 mg/dose (4 mg/3 mL) 1 mg (0.75 mL) SQ WEEKLY #3 mL 06/27/23 08/05/23 Rx subcutaneous pen injector aspirin 81 mg tablet,delayed 81 mg PO DAILY 08/04/23 08/05/23 History release cholecalciferol (vitamin D3) 50 50 mcg PO DAILY supplement 08/04/23 08/04/23 History mcg (2,000 unit) capsule (Vitamin D3) duloxetine 60 mg capsule,delayed 60 mg PO HS 08/04/23 08/04/23 History release ferrous gluconate 225 mg (27 mg 225 mg PO DAILY 08/04/23 08/04/23 History iron) tablet (Fergon) metoprolol succinate 50 mg 75 mg PO HS BP 08/04/23 08/04/23 History tablet,extended release 24 hr montelukast 10 mg tablet 10 mg PO HS 08/04/23 08/04/23 History pantoprazole 40 mg tablet,delayed 40 mg PO DAILY 08/04/23 08/04/23 History release cyclobenzaprine 5 mg tablet 5 mg PO BID PRN muscle spasms 08/05/23 08/05/23 History simvastatin 40 mg tablet 40 mg PO HS 08/05/23 08/05/23 History topiramate 150 mg capsule 150 mg PO DAILY 08/05/23 08/05/23 History sprinkle,extended release 24 hr New Prescriptions to Start Prescriptions: Allergies Allergy/AdvReac Type Severity Reaction Status Date / Time ranitidine [RANITIDINE] Allergy Severe Anaphylaxis Verified 07/25/23 11:46 adhesive tape [ADHESIVE TAPE] Allergy Intermediate I-RASH Verified 07/25/23 11:46 bupropion [BUPROPION] Allergy Intermediate I-HIVES Verified 07/25/23 11:46 butorphanol [BUTORPHANOL] Allergy Intermediate I-HIVES Verified 07/25/23 11:46 calcium [From DHEA] Allergy Intermediate I-HIVES Verified 07/25/23 11:46 calcium carbonate [From DHEA] Allergy Intermediate I-HIVES Verified 07/25/23 11:46 codeine [CODEINE] Allergy Intermediate I-HIVES Verified 07/25/23 11:46 hydromorphone [HYDROMORPHONE] Allergy Intermediate I-HIVES Verified 07/25/23 11:46 prasterone (DHEA) [From DHEA] Allergy Intermediate I-HIVES Verified 07/25/23 11:46 sumatriptan [From IMITREX] Allergy Intermediate I-HIVES Verified 07/25/23 11:46 hydrocodone [HYDROCODONE] Allergy Unknown I-ITCHING Verified 07/25/23 11:46 morphine [MORPHINE] Allergy Unknown HEADACHE Verified 07/25/23 11:46 oxycodone [From Percocet] Allergy Hives Verified 07/25/23 11:46 prochlorperazine Allergy Unknown Verified 07/25/23 11:46 [From Compazine] allergy reaction rizatriptan [From Maxalt] Allergy Unknown Verified 07/25/23 11:46 allergy reaction Penicillins AdvReac upset Verified 07/25/23 11:46 stomach Assessment and Plan *Assessment and plan (1) Syncope: Status: Acute Qualifiers: Syncope type: unspecified Qualified Code(s): R55 - Syncope and collapse Category: Medical Code(s): R55 - Syncope and collapse (2) Acute kidney injury superimposed on CKD: Status: Acute Category: Medical Code(s): N17.9 - Acute kidney failure, unspecified; N18.9 - Chronic kidney disease, unspecified (3) Acidosis, lactic: Status: Acute Category: Medical Code(s): E87.20 - Acidosis, unspecified (4) Diastolic dysfunction: Status: Acute Category: Medical Code(s): I51.89 - Other ill-defined heart diseases (5) IDDM (insulin dependent diabetes mellitus): Status: Chronic Category: Medical Code(s): E11.9 - Type 2 diabetes mellitus without complications; 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 Her blood pressures have been doing fairly well over the last couple of months. Will continue current therapy. Status: Chronic Qualifiers: Hypertension type: essential hypertension Qualified Code(s): I10 - Essential (primary) hypertension Category: Medical Code(s): I10 - Essential (primary) hypertension (7) GERD (gastroesophageal reflux disease): Status: Chronic Qualifiers: Esophagitis presence: esophagitis presence not specified Qualified Code(s): K21.9 - Gastro-esophageal reflux disease without esophagitis Category: Medical Code(s): K21.9 - Gastro-esophageal reflux disease without esophagitis (8) DONELL on CPAP: Problem Comment: She is currently on CPAP and she states she is doing well with this currently. Status: Chronic Category: Medical Code(s): G47.33 - Obstructive sleep apnea (adult) (pediatric); Z99.89 - Dependence on other enabling machines and devices (9) Morbid obesity with body mass index (BMI) of 40.0 to 49.9: Problem Comment: The SGLT inhibitors may help with weight loss. Status: Acute Category: Medical Code(s): E66.01 - Morbid (severe) obesity due to excess calories Plan Syncope -Appears to be secondary to acute dehydration from poorly controlled diabetes -EKG, telemetry, orthostatic vital signs all normal -Symptoms resolved post hydration -Educated patient on blood sugar control. Will defer pharmacologic changes to hospitalist and primary care physician Hypertension -BP was slightly low in the 90s on arrival but this was in setting of acute dehydration -Her BP is now well-controlled, recommend continuing home meds -Keep twice daily blood pressure log and follow-up in our office 2 weeks Lactic acidosis -Secondary to acute dehydration -She had blood cultures ordered and is on broad-spectrum antibiotics, defer management of this to hospitalist Patient is CV stable for discharge, she can follow-up in our office in 2 weeks. Please advise if we can be of further assistance prior to discharge, thank you.
[2023-08-05] MEDS: ACETAMINOPHEN 325MG TAB 650 MG PO (11:45)
[2023-08-05 12:03] LABS: POC Glucose,Bedside 325 (70-110)
--- NOTE | 2023-08-05 13:15 | P.DS_ITS ---
General Admission date:: 08/04/23 Discharge date: 08/05/23 HPI HPI HPI: This is a 57-year-old female obese with PMHx of multiples comorbidities including but not linited to insulin-dependent diabetes, uncontrolled with complications, including neuropathy, atypical angina, diastolic disfunction, with low normal reduced ejection fraction, CKD, DONELL, previous syncope who presented to the emergency department for evaluation of syncope. Patient stated that being seated in her car and took a couple of steps and had an episode of syncope falling forwards into her yard. she stated 'she was out for couple of minutes . One neighbor who visualized the episode, helped her to get up. At that time her BP was low. Her previous episodes of syncope she has had tunnel vision however there was no preceding symptoms today. Subsequently patient had transient confusion which resolved prior to arrival. Patient has had 2-3 episodes of this over the last 2 years. Patient had blood pressure medications adjusted approximately 2 months ago. No other acute complaints at this time. Admitted for further management. Hospital Course Hospital Course Hospital Course: 57-year-old female obese with PMHx of multiples comorbidities including but not linited to insulin-dependent diabetes, uncontrolled with complications, inclu ding neuropathy, atypical angina, diastolic disfunction, with low normal reduced ejection fraction, CKD, DONELL, previous syncope who presented to the emergency department for evaluation of syncope. Admitted to medicine for further management. Patient's symptoms resolved with improvement in her blood pressure after IV fluid resuscitation. Stable in the morning and evaluated by cardiology. Stable to discharge home with close follow-up with cardiology for further evaluation. Has a follow-up later this week with her PCP to discuss diabetes control. Problems addressed as follows: Syncope: Heart failure with reduced ejection fraction Admitted on telemetry to monitor overnight. Blood pressures improved after fluid resuscitation. Patient's diabetes is poorly controlled. Held her blood pressure meds at this time. Blood pressure and proved and measured at 146/80 at time of discharge. Cardiology evaluated. As her symptoms are resolved after hydration, recommend resuming her blood pressure regimen. We will cut her losartan in half to 50 mg until she follows with cardiology. Reviewed chart, recently had an echo and cardiac MRI in April, showed slightly reduced EF. Ultrasound carotid obtained, Less than 50% stenosis bilaterally. Urged improved blood sugar control. Encouraged to monitor blood pressure twice daily until follows up with cardiology. ELINA on CKD lactic acidosis : suspected prerenal. dehydration. Improved with IV fluids. Creatinine 1.7 morning after admission, BUN 21. This is at her baseline. Encouraged to increase her p.o. hydration. Discussed her diabetes being out of control. Recommend discussing this with her PCP later this week for improved control and adjustments to her regimen. Diabetes with peripheral neuropathy Hemoglobin A1c elevated at 9.6. This is gone up from her last check 3 months ago at which time she was 8.8. Will continue her home regimen. Defer further management to PCP whom she sees later this week. Exam Data for Last 24 hours Vital signs and Labs for Last 24 Hours: Temp Pulse Resp BP Pulse Ox O2 Del Method 97.7 F 86 18 146/80 H 96 Room Air 08/05/23 12:00 08/05/23 12:00 08/05/23 12:00 08/05/23 12:00 08/05/23 12:00 08/05/23 12:00 Laboratory Results - last 24 hr 08/04/23 15:38: SARS-CoV-2 (PCR) Not detected, Influenza A Untype (PCR) Not detected, Influenza Type B (PCR) Not detected 08/04/23 15:40: WBC 7.9, RBC 4.60, Hgb 12.9, Hct 40.6, MCV 88.2, MCH 28.1, MCHC 31.9, RDW 21.3 H, Plt Count 249, MPV 10.0, Neut % (Auto) 41.4, Lymph % (Auto) 48.4, [place] % (Auto) 5.4, Eos % (Auto) 3.9, Baso % (Auto) 0.9, Neut # (Auto) 3.3, Lymph # (Auto) 3.8, [place] # (Auto) 0.4, Eos # (Auto) 0.3, Baso # (Auto) 0.1, D- Dimer 0.49, Sodium 135 L, Potassium 3.7, Chloride 101, Carbon Dioxide 19 L, Anion Gap 18.7 H, BUN 22 H, Creatinine 2.10 H, Estimated Creat Clear 43, Estimated GFR 24 L, Est GFR ( Amer) 29 L, Glucose 327 H, Calcium 8.5, Mag nesium 1.8, Total Bilirubin 0.6, AST 49 H, ALT 30, Alkaline Phosphatase 114, Troponin I < 0.01, Total Protein 7.1, Albumin 3.7, Globulin 3.4 H, Albumin/Gl obulin Ratio 1.1, TSH 2.00, Free T4 0.87 08/04/23 16:01: VBG pH 7.35, VBG pCO2 35.4, VBG pO2 57.2 H, VBG HCO3 19.1 L, VBG Total CO2 20.2 L, VBG O2 Saturation 86.7 H, VBG Base Excess -6.5 L, VBG Lactic Acid 5.2 H 08/04/23 18:25: Urine Color Yellow, Urine Appearance Clear, Urine pH 6.5, Ur Specific [place] 1.010, Urine Protein Negative, Urine Glucose (UA) 2+, Urine Ketones Negative, Urine Blood Negative, Urine Nitrate Negative, Urine Bilirubin Negative, Urine Urobilinogen 0.2, Ur Leukocyte Esterase Negative, Urine RBC None, Urine WBC Occasional, Ur Squamous Epith Cells 20-50, Urine Bacteria Trace 08/04/23 19:00: Troponin I < 0.01 08/04/23 20:46: POC Glucose 264 H 08/04/23 22:10: Lactate 2.0, Troponin I < 0.01 08/05/23 06:15: WBC 6.2, RBC 4.49, Hgb 12.7, Hct 38.6, MCV 86.0, MCH 28.3, MCHC 33.0, RDW 21.1 H, Plt Count 223, MPV 9.6, Neut % (Auto) 44.1, Lymph % (Auto) 42.3, [place] % (Auto) 6.9, Eos % (Auto) 5.7, Baso % (Auto) 1.0, Neut # (Auto) 2.7, Lymph # (Auto) 2.6, [place] # (Auto) 0.4, Eos # (Auto) 0.4, Baso # (Auto) 0.1, Sodium 137, Potassium 3.1 L, Chloride 105, Carbon Dioxide 25, Anion Gap 10.1, BUN 21 H, Creatinine 1.70 H, Estimated Creat Clear 32, Estimated GFR 31 L, Est GFR ( Amer) 38 L D, Glucose 166 H D, Hemoglobin A1c 9.6 H, Calcium 8.5, Phosphorus 5.7 H, Magnesium 1.9, Total Bilirubin 0.4, AST 35 D, ALT 18 D, Alkaline Phosphatase 121, Total Protein 6.4, Albumin 3.2 L D, Globulin 3.2, Albumin/Globulin Ratio 1.0 L, Triglycerides 979 H, Cholesterol 187, LDL Cholesterol Direct 53.33 L, HDL Cholesterol 26 L, Cholesterol/HDL Ratio 7.2 H 08/05/23 07:05: POC Glucose 203 H 08/05/23 11:38: POC Glucose 325 H* I & O for Last 24 hours: Intake & Output 08/02/23 08/03/23 08/04/23 08/05/23 23:59 23:59 23:59 23:59 Intake Total 1999 690 / 690 Output Total 1650 / 1650 Balance 1999 -960 / -960 Weight 114.305 kg 112.173 kg Constitutional Constitutional: no acute distress, morbidly obese and cooperative *Routine HEENT Exam Head: Present normocephalic Eye: Present EOMI and PERRL ENT: Present mucous membranes moist *Routine Neck Exam Neck: Present supple; Absent lymphadenopathy *Routine Respiratory Exam Respiratory: Present normal respiratory effort and symmetric chest movement; Absent rhonchi, wheezes or crackles *Routine Cardiovascular Exam Cardiovascular: Present RRR *Routine Abdominal Exam Abdominal: Present soft and normoactive bowel sounds; Absent tenderness *Routine Rectal Exam Patient deferred: visual exam *Routine Exam Patient deferred: external exam *Routine Extremities Exam Extremities: Absent cyanosis, clubbing or edema Comments: Right lower extremity in orthopedic appliance *Routine Skin Exam Skin: Present intact and warm; Absent cyanosis or rash *Routine Neurological Exam Neurological: Present alert, oriented X3 and moving all extremities; Absent altered mental status Routine Psychiatric Exam Psychiatric: Present normal affect and cooperative Results Data Completed and Pending Labs on day of discharge: Labs from last 24 hours 08/05/23 08/05/23 08/05/23 11:38 07:05 06:15 WBC 6.2 RBC 4.49 Hgb 12.7 Hct 38.6 MCV 86.0 MCH 28.3 MCHC 33.0 RDW 21.1 H Plt Count 223 MPV 9.6 Neut % (Auto) 44.1 Lymph % (Auto) 42.3 [place] % (Auto) 6.9 Eos % (Auto) 5.7 Baso % (Auto) 1.0 Neut # (Auto) 2.7 Lymph # (Auto) 2.6 [place] # (Auto) 0.4 Eos # (Auto) 0.4 Baso # (Auto) 0.1 D-Dimer VBG pH VBG pCO2 VBG pO2 VBG HCO3 VBG Total CO2 VBG O2 Saturation VBG Base Excess VBG Lactic Acid Sodium 137 Potassium 3.1 L Chloride 105 Carbon Dioxide 25 Anion Gap 10.1 BUN 21 H Creatinine 1.70 H Estimated Creat Clear 32 Estimated GFR 31 L Est GFR ( Amer) 38 L D Glucose 166 H D POC Glucose 325 H* 203 H Hemoglobin A1c 9.6 H Lactate Calcium 8.5 Phosphorus 5.7 H Magnesium 1.9 Total Bilirubin 0.4 AST 35 D ALT 18 D Alkaline Phosphatase 121 Troponin I Total Protein 6.4 Albumin 3.2 L D Globulin 3.2 Albumin/Globulin Ratio 1.0 L Triglycerides 979 H Cholesterol 187 LDL Cholesterol Direct 53.33 L HDL Cholesterol 26 L Cholesterol/HDL Ratio 7.2 H TSH Free T4 Urine Color Urine Appearance Urine pH Ur Specific [place] Urine Protein Urine Glucose (UA) Urine Ketones Urine Blood Urine Nitrate Urine Bilirubin Urine Urobilinogen Ur Leukocyte Esterase Urine RBC Urine WBC Ur Squamous Epith Cells Urine Bacteria SARS-CoV-2 (PCR) Influenza A Untype (PCR) Influenza Type B (PCR) 08/04/23 08/04/23 08/04/23 22:10 20:46 19:00 WBC RBC Hgb Hct MCV MCH MCHC RDW Plt Count MPV Neut % (Auto) Lymph % (Auto) [place] % (Auto) Eos % (Auto) Baso % (Auto) Neut # (Auto) Lymph # (Auto) [place] # (Auto) Eos # (Auto) Baso # (Auto) D-Dimer VBG pH VBG pCO2 VBG pO2 VBG HCO3 VBG Total CO2 VBG O2 Saturation VBG Base Excess VBG Lactic Acid Sodium Potassium Chloride Carbon Dioxide Anion Gap BUN Creatinine Estimated Creat Clear Estimated GFR Est GFR ( Amer) Glucose POC Glucose 264 H Hemoglobin A1c Lactate 2.0 Calcium Phosphorus Magnesium Total Bilirubin AST ALT Alkaline Phosphatase Troponin I < 0.01 < 0.01 Total Protein Albumin Globulin Albumin/Globulin Ratio Triglycerides Cholesterol LDL Cholesterol Direct HDL Cholesterol Cholesterol/HDL Ratio TSH Free T4 Urine Color Urine Appearance Urine pH Ur Specific [place] Urine Protein Urine Glucose (UA) Urine Ketones Urine Blood Urine Nitrate Urine Bilirubin Urine Urobilinogen Ur Leukocyte Esterase Urine RBC Urine WBC Ur Squamous Epith Cells Urine Bacteria SARS-CoV-2 (PCR) Influenza A Untype (PCR) Influenza Type B (PCR) 08/04/23 08/04/23 08/04/23 18:25 16:01 15:40 WBC 7.9 RBC 4.60 Hgb 12.9 Hct 40.6 MCV 88.2 MCH 28.1 MCHC 31.9 RDW 21.3 H Plt Count 249 MPV 10.0 Neut % (Auto) 41.4 Lymph % (Auto) 48.4 [place] % (Auto) 5.4 Eos % (Auto) 3.9 Baso % (Auto) 0.9 Neut # (Auto) 3.3 Lymph # (Auto) 3.8 [place] # (Auto) 0.4 Eos # (Auto) 0.3 Baso # (Auto) 0.1 D-Dimer 0.49 VBG pH 7.35 VBG pCO2 35.4 VBG pO2 57.2 H VBG HCO3 19.1 L VBG Total CO2 20.2 L VBG O2 Saturation 86.7 H VBG Base Excess -6.5 L VBG Lactic Acid 5.2 H Sodium 135 L Potassium 3.7 Chloride 101 Carbon Dioxide 19 L Anion Gap 18.7 H BUN 22 H Creatinine 2.10 H Estimated Creat Clear 43 Estimated GFR 24 L Est GFR ( Amer) 29 L Glucose 327 H POC Glucose Hemoglobin A1c Lactate Calcium 8.5 Phosphorus Magnesium 1.8 Total Bilirubin 0.6 AST 49 H ALT 30 Alkaline Phosphatase 114 Troponin I < 0.01 Total Protein 7.1 Albumin 3.7 Globulin 3.4 H Albumin/Globulin Ratio 1.1 Triglycerides Cholesterol LDL Cholesterol Direct HDL Cholesterol Cholesterol/HDL Ratio TSH 2.00 Free T4 0.87 Urine Color Yellow Urine Appearance Clear Urine pH 6.5 Ur Specific [place] 1.010 Urine Protein Negative Urine Glucose (UA) 2+ Urine Ketones Negative Urine Blood Negative Urine Nitrate Negative Urine Bilirubin Negative Urine Urobilinogen 0.2 Ur Leukocyte Esterase Negative Urine RBC None Urine WBC Occasional Ur Squamous Epith Cells 20-50 Urine Bacteria Trace SARS-CoV-2 (PCR) Influenza A Untype (PCR) Influenza Type B (PCR) 08/04/23 15:38 WBC RBC Hgb Hct MCV MCH MCHC RDW Plt Count MPV Neut % (Auto) Lymph % (Auto) [place] % (Auto) Eos % (Auto) Baso % (Auto) Neut # (Auto) Lymph # (Auto) [place] # (Auto) Eos # (Auto) Baso # (Auto) D-Dimer VBG pH VBG pCO2 VBG pO2 VBG HCO3 VBG Total CO2 VBG O2 Saturation VBG Base Excess VBG Lactic Acid Sodium Potassium Chloride Carbon Dioxide Anion Gap BUN Creatinine Estimated Creat Clear Estimated GFR Est GFR ( Amer) Glucose POC Glucose Hemoglobin A1c Lactate Calcium Phosphorus Magnesium Total Bilirubin AST ALT Alkaline Phosphatase Troponin I Total Protein Albumin Globulin Albumin/Globulin Ratio Triglycerides Cholesterol LDL Cholesterol Direct HDL Cholesterol Cholesterol/HDL Ratio TSH Free T4 Urine Color Urine Appearance Urine pH Ur Specific [place] Urine Protein Urine Glucose (UA) Urine Ketones Urine Blood Urine Nitrate Urine Bilirubin Urine Urobilinogen Ur Leukocyte Esterase Urine RBC Urine WBC Ur Squamous Epith Cells Urine Bacteria SARS-CoV-2 (PCR) Not detected Influenza A Untype (PCR) Not detected Influenza Type B (PCR) Not detected DS: Diagnosis Discharge Diagnosis (1) Syncope: Status: Acute Code(s): R55 - Syncope and collapse Qualifiers: Syncope type: unspecified Qualified Code(s): R55 - Syncope and collapse (2) Acute kidney injury superimposed on CKD: Status: Acute Code(s): N17.9 - Acute kidney failure, unspecified; N18.9 - Chronic kidney disease, unspecified (3) Acidosis, lactic: Status: Acute Code(s): E87.20 - Acidosis, unspecified (4) Diastolic dysfunction: Status: Acute Code(s): I51.89 - Other ill-defined heart diseases (5) IDDM (insulin dependent diabetes mellitus): Status: Chronic Code(s): E11.9 - Type 2 diabetes mellitus without complications; Z79.4 - shelter (current) use of insulin (6) Hypertension: Status: Chronic Code(s): I10 - Essential (primary) hypertension Qualifiers: Hypertension type: essential hypertension Qualified Code(s): I10 - Essential (primary) hypertension Problem details: Blood pressure today is 122/64. Her blood pressures have been doing fairly well over the last couple of months. Will continue current therapy. (7) GERD (gastroesophageal reflux disease): Status: Chronic Code(s): K21.9 - Gastro-esophageal reflux disease without esophagitis Qualifiers: Esophagitis presence: esophagitis presence not specified Qualified Code(s): K21.9 - Gastro-esophageal reflux disease without esophagitis (8) DONELL on CPAP: Status: Chronic Code(s): G47.33 - Obstructive sleep apnea (adult) (pediatric); Z99.89 - Dependence on other enabling machines and devices Problem details: She is currently on CPAP and she states she is doing well with this currently. (9) Morbid obesity with body mass index (BMI) of 40.0 to 49.9: Status: Acute Code(s): E66.01 - Morbid (severe) obesity due to excess calories Problem details: The SGLT inhibitors may help with weight loss. Meds Home Medications and Allergies Home Medications Medication Instructions Recorded Confirmed Type ascorbic acid (vitamin C) 100 mg 100 mg PO DAILY Supplement 08/28/22 08/04/23 History tablet (Vitamin C) zinc 10 mg tablet 10 mg PO DAILY Supplement 08/28/22 08/04/23 History fluticasone furoate 100 1 inh inhalation DAILY allergies 02/07/23 08/05/23 Rx mcg-vilanterol 25 mcg/dose 90 days #60 ea inhalation powder (Breo Ellipta) vitamin B12 0.5 mg-folic acid 1 mg 1 tab PO DAILY Supplement 90 days 02/07/23 08/04/23 Rx tablet #90 tabs triamterene 37.5 1 cap PO DAILY #90 caps 06/11/23 08/05/23 Rx mg-hydrochlorothiazide 25 mg capsule blood pressure monitor (Blood #1 ea 06/13/23 08/04/23 Rx Pressure Kit) pen needle, diabetic 32 gauge x #100 ea 06/17/23 08/04/23 Rx 5/32 (Pen Needle) albuterol sulfate 90 mcg/actuation 2 puff inhalation Q4-6H PRN 06/27/23 08/05/23 Rx aerosol inhaler shortness of breath or wheezing #8.5 grams amitriptyline 25 mg tablet 25 mg PO HS 90 days #90 tabs 06/27/23 08/04/23 Rx empagliflozin 25 mg tablet 25 mg PO DAILY 90 days #90 tabs 06/27/23 08/05/23 Rx estradiol 2 mg tablet 8 mg (4 x 2 mg) PO DAILY 90 days 06/27/23 08/05/23 Rx #360 tabs flash glucose scanning reader #1 ea 06/27/23 08/04/23 Rx (FreeStyle Jayshree 14 Day [place]) flash glucose sensor (FreeStyle #1 ea 06/27/23 08/04/23 Rx Jayshree 14 Day Sensor kit) insulin NPH-regular 70-30 U-100 63 unit (0.63 mL) SQ BID 90 days 06/27/23 08/05/23 Rx insulin 100 unit/mL subcutaneous #113.4 mL pen (Humulin 70/30 U-100 KwikPen) insulin glargine 100 unit/mL (3 18 unit (0.18 mL) SQ HS 30 days 06/27/23 08/05/23 Rx mL) subcutaneous pen (Lantus #5.4 mL Solostar U-100 Insulin) lancets 33 gauge (OneTouch [place] #100 ea 06/27/23 08/04/23 Rx Plus Lancet) pregabalin 150 mg capsule 150 mg PO TID pain 30 days #90 caps 06/27/23 08/04/23 Rx rimegepant 75 mg disintegrating 75 mg PO NEEDED PRN migraine 06/27/23 08/05/23 Rx tablet (Nurtec ODT) headache 90 days #30 tabs semaglutide 1 mg/dose (4 mg/3 mL) 1 mg (0.75 mL) SQ WEEKLY #3 mL 06/27/23 08/05/23 Rx subcutaneous pen injector aspirin 81 mg tablet,delayed 81 mg PO DAILY 08/04/23 08/05/23 History release cholecalciferol (vitamin D3) 50 50 mcg PO DAILY supplement 08/04/23 08/04/23 History mcg (2,000 unit) capsule (Vitamin D3) duloxetine 60 mg capsule,delayed 60 mg PO HS 08/04/23 08/04/23 History release ferrous gluconate 225 mg (27 mg 225 mg PO DAILY 08/04/23 08/04/23 History iron) tablet (Fergon) metoprolol succinate 50 mg 75 mg PO HS BP 08/04/23 08/04/23 History tablet,extended release 24 hr montelukast 10 mg tablet 10 mg PO HS 08/04/23 08/04/23 History pantoprazole 40 mg tablet,delayed 40 mg PO DAILY 08/04/23 08/04/23 History release cyclobenzaprine 5 mg tablet 5 mg PO BID PRN muscle spasms 08/05/23 08/05/23 History losartan 100 mg tablet 50 mg (1/2 x 100 mg) PO DAILY 90 08/05/23 08/04/23 Rx days #90 tabs simvastatin 40 mg tablet 40 mg PO HS 08/05/23 08/05/23 History topiramate 150 mg capsule 150 mg PO DAILY 08/05/23 08/05/23 History sprinkle,extended release 24 hr New Prescriptions to Start Prescriptions: Allergies Allergy/AdvReac Type Severity Reaction Status Date / Time ranitidine [RANITIDINE] Allergy Severe Anaphylaxis Verified 07/25/23 11:46 adhesive tape [ADHESIVE TAPE] Allergy Intermediate I-RASH Verified 07/25/23 11:46 bupropion [BUPROPION] Allergy Intermediate I-HIVES Verified 07/25/23 11:46 butorphanol [BUTORPHANOL] Allergy Intermediate I-HIVES Verified 07/25/23 11:46 calcium [From DHEA] Allergy Intermediate I-HIVES Verified 07/25/23 11:46 calcium carbonate [From DHEA] Allergy Intermediate I-HIVES Verified 07/25/23 11:46 codeine [CODEINE] Allergy Intermediate I-HIVES Verified 07/25/23 11:46 hydromorphone [HYDROMORPHONE] Allergy Intermediate I-HIVES Verified 07/25/23 11:46 prasterone (DHEA) [From DHEA] Allergy Intermediate I-HIVES Verified 07/25/23 11:46 sumatriptan [From IMITREX] Allergy Intermediate I-HIVES Verified 07/25/23 11:46 hydrocodone [HYDROCODONE] Allergy Unknown I-ITCHING Verified 07/25/23 11:46 morphine [MORPHINE] Allergy Unknown HEADACHE Verified 07/25/23 11:46 oxycodone [From Percocet] Allergy Hives Verified 07/25/23 11:46 prochlorperazine Allergy Unknown Verified 07/25/23 11:46 [From Compazine] allergy reaction rizatriptan [From Maxalt] Allergy Unknown Verified 07/25/23 11:46 allergy reaction Penicillins AdvReac upset Verified 07/25/23 11:46 stomach Discharge Plan Disposition Patient Disposition: Home, Self-Care Condition: Fair Follow up Plan Follow up with: Kendall Mccrary DO [Primary Care Provider] - 08/12/23 11:15 am Vadim Ramos MD [Staff Physician] - 08/19/23 2:15 pm Prescriptions/Medication Reconciliation: Continued fluticasone furoate-vilanterol [Breo Ellipta] 100-25 mcg/dose blister with device 1 inh inhalation DAILY 90 Days Qty: 60 0RF vitamin [id number] acid 0.5-1 mg tablet 1 tab PO DAILY 90 Days Qty: 90 1RF (DME) blood pressure monitor [Blood Pressure Kit] Kit See Rx Instructions .Route Qty: 1 0RF Rx Instructions: As directed albuterol sulfate 90 mcg/actuation HFA aerosol inhaler 2 puff inhalation Q4-6H PRN (Reason: shortness of breath or wheezing) Qty: 8.5 5RF amitriptyline 25 mg tablet 25 mg PO HS 90 Days Qty: 90 4RF empagliflozin 25 mg tablet 25 mg PO DAILY 90 Days Qty: 90 4RF estradiol 2 mg tablet 8 mg PO DAILY 90 Days Qty: 360 4RF insulin glargine [Lantus Solostar U-100 Insulin] 100 unit/mL (3 mL) insulin pen 18 unit SQ HS 30 Days Qty: 5.4 5RF Humulin 70/30 U-100 KwikPen 100 unit/mL (70-30) insulin pen 63 unit SQ BID 90 Days Qty: 113.4 4RF (DME) lancets [OneTouch Delica Plus Lancet] 33 gauge misc See Rx Instructions .ROUTE .COMPLEX Qty: 100 9RF Dose Instruction: DIRECTED Rx Instructions: DIRECTED pregabalin 150 mg capsule 150 mg PO TID 30 Days Qty: 90 5RF Rx Instructions: [facility] mg tablet,disintegrating 75 mg PO NEEDED PRN (Reason: migraine headache) 90 Days Qty: 30 4RF semaglutide 1 mg/dose (4 mg/3 mL) pen injector 1 mg SQ WEEKLY Qty: 3 8RF triamterene-hydrochlorothiazid 37.5-25 mg capsule 1 cap PO DAILY Qty: 90 3RF (DME) pen needle, diabetic [Pen Needle] 32 gauge x 5/32 needle See Rx Instructions .ROUTE .COMPLEX Qty: 100 0RF Dose Instruction: USE TO INJECT TWICE DAILY Rx Instructions: USE TO INJECT TWICE DAILY (DME) FreeStyle Jayshree 14 Day Sensor Kit See Rx Instructions .Route Qty: 1 3RF Rx Instructions: As directed (DME) FreeStyle Jayshree 14 Day [place] Misc See Rx Instructions .Route Qty: 1 0RF Rx Instructions: As directed Vitamin C 100 mg Tablet 100 mg PO DAILY zinc 10 mg Tablet 10 mg PO DAILY aspirin 81 mg Tablet,Delayed Release (Dr/Ec) 81 mg PO DAILY Fergon 225 mg (27 mg iron) Tablet 225 mg PO DAILY cholecalciferol (vitamin D3) [Vitamin D3] 50 mcg (2,000 unit) Capsule 50 mcg PO DAILY metoprolol succinate 50 mg tablet extended release 24 hr 75 mg PO HS Rx Instructions: TAKE 1 & 1/2 TABLETS BY MOUTH AT BEDTIME FOR BLOOD PRESSURE pantoprazole 40 mg tablet,delayed release (DR/EC) 40 mg PO DAILY Rx Instructions: TAKE 1 TABLET BY MOUTH ONCE DAILY montelukast 10 mg tablet 10 mg PO HS Rx Instructions: TAKE 1 TABLET BY MOUTH AT BEDTIME duloxetine 60 mg capsule,delayed release(DR/EC) 60 mg PO HS Rx Instructions: TAKE 1 CAPSULE BY MOUTH ONCE DAILY simvastatin 40 mg tablet 40 mg PO HS Rx Instructions: TAKE 1 TABLET BY MOUTH ONCE DAILY FOR CHOLESTEROL cyclobenzaprine 5 mg tablet 5 mg PO BID PRN (Reason: muscle spasms) Rx Instructions: TAKE 1 TABLET BY MOUTH TWICE A DAY NEEDED FOR MUSCLE SPASM topiramate 150 mg Capsule,Sprinkle,Er 24hr 150 mg PO DAILY Changed losartan 100 mg tablet 50 mg PO DAILY 90 Days Qty: 90 4RF Problem Reconciliation Problems Reviewed?: Yes Patient Discharge Instructions ACTIVITY: Continue current activity DIET: continue same diet Patient Instructions: DI for Syncope in Adults (Fainting), DI for Dehydration -- Adult Providers Primary Care Provider: Kendall Mccrary Admit Provider: Chandler Cardoso Attending Provider: Chandler Cardoso
--- NOTE | 2023-08-05 13:41 | HMH.PHAINT1 ---
Pharmacy Intervention Comments: DISCHARGE MEDICATION COUNSELING WAS PROVIDED TO PATIENT ON THE CHANGE OF THEIR LOSARTAN. PATIENT VERBALIZED UNDERSTANDING WITH NO FURTHER QUESTIONS.
--- NOTE | 2023-08-07 11:05 | CARE MANAGER ---
Attempted to contact patient x2 related to hospital discharge. Left VM message. DANIEL Morales
== END 2023-08-05 14:47 | disposition home or self-care (01) ==
LOC: ER 19:38 → 2ND 19:44
PROVIDERS: Nurse Practitioner Family; Admitting Provider Internal Medicine Adolescent Medicine; Emergency Provider Emergency Medicine; PCP Internal Medicine; Visit Provider Internal Medicine Adolescent Medicine
DX: R55 Syncope and collapse (principal); N17.9 Acute kidney failure, unspecified; N18.30 Chronic kidney disease, stage 3 unspecified; E87.20 Acidosis, unspecified; E11.22 Type 2 diabetes mellitus with diabetic chronic kidney disease; Z79.4 Long term (current) use of insulin; I13.0 Hypertensive heart and chronic kidney disease with heart failure and stage 1 through stage 4 chronic kidney disease, or unspecified chronic kidney disease; K21.9 Gastro-esophageal reflux disease without esophagitis; G47.33 Obstructive sleep apnea (adult) (pediatric); Z99.89 Dependence on other enabling machines and devices; E66.01 Morbid (severe) obesity due to excess calories; Z79.899 Other long term (current) drug therapy; Z68.41 Body mass index [BMI] 40.0-44.9, adult; Z87.891 Personal history of nicotine dependence; I50.22 Chronic systolic (congestive) heart failure; E86.0 Dehydration; I65.23 Occlusion and stenosis of bilateral carotid arteries; W01.0XXA Fall on same level from slipping, tripping and stumbling without subsequent striking against object, initial encounter; Y92.017 Garden or yard in single-family (private) house as the place of occurrence of the external cause; E11.40 Type 2 diabetes mellitus with diabetic neuropathy, unspecified; E11.65 Type 2 diabetes mellitus with hyperglycemia
CPT/HCPCS: 36415; 71045; 71275; 80053; 80061; 81001; 82803; 82962; 83036; 83605; 83735; 84100; 84439; 84443; 84484; 85025; 85378; 87040; 87636; 93005; 93880; 99285; G0378; Q9967

== ENCOUNTER 2023-09-05 11:51 | Outpatient (CLI) | payer MEDICARE, SELFPAY ==
[2023-09-05 13:20] VITALS: BMI 42.7
== END 2023-09-05 23:59 | disposition home or self-care (01) ==
LOC: DIETICIAN 11:52
PROVIDERS: PCP Internal Medicine; Visit Provider Internal Medicine
DX: Z71.3 Dietary counseling and surveillance (principal); E11.9 Type 2 diabetes mellitus without complications; Z79.4 Long term (current) use of insulin
CPT/HCPCS: 97802

== ENCOUNTER 2023-09-05 19:04 | Outpatient (CLI) | payer MEDICARE, SELFPAY ==
[2023-09-05 19:30] LABS: Basophils # 0.1 K/mm3 (0-0.2); Basophils % 0.6 % (0.1-2.0); Eosinophils # 0.2 K/mm3 (0.0-0.4); Eosinophils % 2.8 % (0.1-12.0); Hematocrit 43.8 % (37.0-47.0); Hemoglobin 14.2 g/dL (12.2-16.2); Lymphocytes # 3.9 K/mm3 (0.7-4.5); Lymphocytes % 48.2 % (10-50); Mean Corpuscular HGB Conc 32.3 g/dL (31.8-35.4); Mean Corpuscular Hemoglobin 29.9 pg (27.0-31.2); Mean Corpuscular Volume 92.5 fl (81-99); Mean Platelet Volume 11.4 fl (7.4-10.4); Monocytes # 0.5 K/mm3 (0.1-1.0); Monocytes % 5.6 % (1.7-9.3); Neutrophils # 3.5 K/mm3 (1.8-7.8); Neutrophils % 42.7 % (37.0-80.0); Platelet Count 264 K/mm3 (142-424); Red Blood Count 4.74 M/mm3 (4.20-5.40); Red Cell Distribution Width 20.9 % (11.5-17.5); White Blood Count 8.1 K/mm3 (4.8-10.8)
[2023-09-05 20:24] LABS: Chol/HDL Ratio 4.7 (1-3.5); Cholesterol 173 mg/dl (140-200); HDL Cholesterol 37 mg/dl (40-60)
[2023-09-05 21:00] LABS: Triglycerides 596 mg/dl (30-150)
== END 2023-09-05 23:59 | disposition home or self-care (01) ==
LOC: LAB.DROPOF 19:06
PROVIDERS: PCP Internal Medicine; Visit Provider Internal Medicine
DX: D50.9 Iron deficiency anemia, unspecified (principal); E11.22 Type 2 diabetes mellitus with diabetic chronic kidney disease; N18.32 Chronic kidney disease, stage 3b; E66.9 Obesity, unspecified; Z68.41 Body mass index [BMI] 40.0-44.9, adult; Z79.4 Long term (current) use of insulin; Z79.84 Long term (current) use of oral hypoglycemic drugs; Z79.85 Long-term (current) use of injectable non-insulin antidiabetic drugs
CPT/HCPCS: 80061; 85025; 97802

== ENCOUNTER 2023-12-14 15:29 | Outpatient (CLI) | payer MEDICARE, SELFPAY ==
--- NOTE | 2023-12-14 15:38 | XR_ITS ---
PROCEDURE INFORMATION: Exam: XR Right Foot Complete; Alignment Exam date and time: 12/14/2023 3:40 PM Age: 57 years old Clinical indication: Pain; Right; Prior surgery; Surgery date: 6+ months; Surgery type: Charcot foot; Additional info: Foot pain TECHNIQUE: Imaging protocol: Radiologic exam of the right foot. Views: 3 or more views. COMPARISON: CR XR FOOT WT BEARING RT 3V 06/27/2023 12:41 PM FINDINGS: Bones/joints: Redemonstration of orthopedic hardware from previous hindfoot arthrodesis with intramedullary kj extending from the tibia to the plantar aspect of the calcaneus redemonstrated. There are 2 threaded screws extending from the calcaneus to the talus and calcaneus to the cuboid bone that are now fractured. There was a 3rd screw that has been since removed. There are advanced degenerative changes involving the ankle joint and subtalar joint as well as calcaneocuboid joint that have mildly progressed from previous exam. There is marked deformity of the navicular bone, unchanged. There are numerous loose bodies along the anterior and posterior aspect of the ankle joint that have increased in number from previous exam. Structures in the forefoot are unchanged and unremarkable. Soft tissues: There is generalized soft tissue swelling anterior to the ankle joint and may have progressed from prior study. IMPRESSION: 1. Prior ORIF and ankle fusion with interval development of 2 screw fractures. 2. Marked degenerative changes and deformity of the hindfoot progressed from previous exam with increasing number of loose bodies.
== END 2023-12-14 23:59 | disposition home or self-care (01) ==
LOC: RAD 15:31
PROVIDERS: PCP Nurse Practitioner Family; Visit Provider Nurse Practitioner
DX: M79.671 Pain in right foot (principal)
CPT/HCPCS: 73630

== ENCOUNTER 2024-04-02 10:00 | Outpatient (CLI) | payer MEDICARE, SELFPAY ==
[2024-04-02 18:14] LABS: Chol/HDL Ratio 2.9 (1-3.5); Cholesterol 104 mg/dl (140-200); HDL Cholesterol 36 mg/dl (40-60); Triglycerides 264 mg/dl (30-150); VLDL Cholesterol 53 mg/dL (0-40)
[2024-04-02 18:25] LABS: Direct LDL Cholesterol 41.62 mg/dL (100-129)
[2024-04-02 18:55] LABS: Hemoglobin A1C 7.6 % (4.0-6.0)
== END 2024-04-02 23:59 | disposition home or self-care (01) ==
LOC: LAB.DROPOF 04-03 10:40
PROVIDERS: PCP Internal Medicine; Visit Provider Internal Medicine
DX: E78.5 Hyperlipidemia, unspecified (principal); E11.69 Type 2 diabetes mellitus with other specified complication; E66.9 Obesity, unspecified
CPT/HCPCS: 80061; 83036

== ENCOUNTER 2024-04-02 10:42 | Observation (INO) | payer MEDICARE, SELFPAY ==
[2024-04-02] VITALS (41 sets, daily range): BP systolic 79–150; BP diastolic 41–103; PULSE 57–76; RESP 10–18; TEMP 36.4–36.8; O2SAT 93–100; BMI 38.7; BMI 41.3
--- NOTE | 2024-04-02 10:42 | ECG_ITS ---
APPROVED REPORT Exam: Resting ECG HR:61 bpm ECG Measurements Heart Rate 61 AXES ND 166 P 39 QRSd 106 QRS -13 QT 442 T 28 QTc 444 Conclusion SINUS RHYTHM POSSIBLE ANTERIOR MYOCARDIAL INFARCTION , PROBABLY OLD [30 ms Q WAVE IN V3/V4, OR R < 0.2 mV IN V4] BORDERLINE ECG Electronically signed by : DEANNA ASTUDILLO, 04/11/2024 07:12:27
--- NOTE | 2024-04-02 10:47 | PC.NURSE ---
FSBS is 133 at this time.
[2024-04-02] MEDS: 0.9 % SODIUM CHLORIDE 1000ML 1,000 ML 999 ML IV ×2 (11:00→12:24)
--- NOTE | 2024-04-02 11:02 | HMH.EDGENADL ---
Discharge Plan Disposition Patient Disposition: Admitted Clinical Impressions Clinical Impression: Admitted for observation Discharge ED Provider: Edwin Waters Adult HPI General Chief complaint: Syncope Stated complaint: Low Blood Sugar Time Seen by Provider: 04/02/24 11:02 History of Present Illness HPI narrative: The patient presents with a history of low blood pressure, initially recorded in the 40s, which improved to around 100 before leaving their regular doctor's office. They also report fluctuating blood sugar levels, with a recent episode of hypoglycemia at midnight when their sugar level dropped to 52. The patient's caregiver had to force-feed them to increase their sugar levels, and the blood sugar was checked during the visit, measuring at 89. The patient underwent surgery two months ago for the removal of a kj and two broken screws, and a complete reconstruction of the heel. They have visited the ER twice this month due to pain and suspected infection, but it was determined that the issue was related to the medication from the surgery. The patient reports experiencing sharp chest pain. They deny any fever, abdominal pain, or pain during urination. They also deny any head injury. The patient is currently taking pain medication (Oxycodone, 5 mg) for their leg. Please note that above description of symptoms, in this electronic medical record under categorization of recalled from ER triage doctor by RN are reflective of an initial nursing assessment, however, is not reflective of my full history and physical exam that was personally taken and clarified. Consequentially, this preceding description of symptoms, which may include the patient's categorized chief complaint in the EMR, do not reflect my personal clinical impression, and the ultimate description of history of present illness and patient stated complaints should be deferred to this section of the note. Unless stated otherwise or congruent with this section of the note, additional signs, symptoms, or incongruence should be interpreted as inaccurate with my clinical impression. Related Data Home Medications ?Medication ?Instructions ?Recorded ?Confirmed ascorbic acid (vitamin C) 100 mg 100 mg PO DAILY Supplement 08/28/22 04/02/24 tablet (Vitamin C) duloxetine 60 mg capsule,delayed 60 mg PO HS 08/04/23 04/02/24 release montelukast 10 mg tablet 10 mg PO HS 08/04/23 04/02/24 empagliflozin 25 mg tablet 25 mg PO DAILY 11/05/23 04/02/24 (Jardiance) estradiol 2 mg tablet (Estrace) 8 mg PO DAILY 11/05/23 04/02/24 topiramate 150 mg capsule 150 mg PO DAILY 11/14/23 04/02/24 sprinkle,extended release 24 hr (Qudexy XR) magnesium gluconate 12.5 mg 500 mg PO TID 04/02/24 04/02/24 magnesium (250 mg) tablet Previous Rx's ?Medication ?Instructions ?Recorded vitamin B12 0.5 mg-folic acid 1 mg 1 tab PO DAILY Supplement 90 days 02/07/23 tablet #90 tabs blood pressure monitor (Blood #1 ea 06/13/23 Pressure Kit) lancets 33 gauge (OneTouch Delica #100 ea 06/27/23 Plus Lancet) aspirin 81 mg tablet,delayed 81 mg PO DAILY #30 tabs 08/08/23 release blood-glucose meter,continuous #1 ea 09/03/23 (FreeStyle Jayshree 3 [place]) blood-glucose sensor (FreeStyle #4 ea 09/03/23 Jayshree 3 Sensor device) ubrogepant 100 mg tablet (Ubrelvy) 100 mg PO ONCE PRN migraine 09/05/23 headache #10 tabs pen needle, diabetic 32 gauge x #100 ea 09/06/23/32 (Pen Needle) insulin NPH-regular 70-30 U-100 65 unit (0.65 mL) SQ BID 90 days 09/11/23 insulin 100 unit/mL subcutaneous #117 mL pen (Humulin 70/30 U-100 KwikPen) insulin glargine 100 unit/mL (3 15 unit (0.15 mL) SQ BID 30 days 10/17/23 mL) subcutaneous pen (Lantus #9 mL Solostar U-100 Insulin) ferrous gluconate 225 mg (27 mg 225 mg PO DAILY #30 tabs 11/14/23 iron) tablet (Fergon) pregabalin 150 mg capsule 150 mg PO TID pain 30 days #90 caps 12/12/23 blood sugar diagnostic (OneTouch #100 ea 01/20/24 Ultra Test strips) losartan 50 mg tablet 50 mg PO DAILY 90 days #30 tabs 03/17/24 metoprolol succinate 50 mg See Rx Instructions .Route 03/18/24 tablet,extended release 24 hr .COMPLEX #45 tabs pantoprazole 40 mg tablet,delayed See Rx Instructions .Route 03/18/24 release .COMPLEX #30 tabs simvastatin 40 mg tablet See Rx Instructions .Route 03/18/24 .COMPLEX #30 tabs triamterene 37.5 See Rx Instructions .Route 03/18/24 mg-hydrochlorothiazide 25 mg tablet .COMPLEX #30 tabs escitalopram oxalate 10 mg tablet See Rx Instructions .Route 03/26/24 .COMPLEX #90 tabs ezetimibe 10 mg tablet See Rx Instructions .Route 03/26/24 .COMPLEX #30 tabs cholecalciferol (vitamin D3) 50 50 mcg PO DAILY supplement #90 04/02/24 mcg (2,000 unit) capsule (Vitamin caps D3) hydromorphone 2 mg tablet 2 mg PO Q4-6H PRN pain #60 tabs 04/02/24 zaleplon 5 mg capsule 5 mg PO HS PRN sleep #30 caps 04/02/24 Allergies Allergy/AdvReac Type Severity Reaction Status Date / Time ranitidine (RANITIDINE) Allergy Severe Anaphylaxis Verified 04/02/24 09:13 vancomycin Allergy Severe Anaphylaxis Verified 04/02/24 09:13 adhesive tape (ADHESIVE TAPE) Allergy Intermediate I-RASH Verified 04/02/24 09:13 bupropion (BUPROPION) Allergy Intermediate I-HIVES Verified 04/02/24 09:13 butorphanol (BUTORPHANOL) Allergy Intermediate I-HIVES Verified 04/02/24 09:13 calcium (From DHEA) Allergy Intermediate I-HIVES Verified 04/02/24 09:13 calcium carbonate (From DHEA) Allergy Intermediate I-HIVES Verified 04/02/24 09:13 codeine (CODEINE) Allergy Intermediate I-HIVES Verified 04/02/24 09:13 hydromorphone (HYDROMORPHONE) Allergy Intermediate I-HIVES Verified 04/02/24 09:13 prasterone (DHEA) (From DHEA) Allergy Intermediate I-HIVES Verified 04/02/24 09:13 sumatriptan (From IMITREX) Allergy Intermediate I-HIVES Verified 04/02/24 09:13 morphine (MORPHINE) Allergy Unknown HEADACHE Verified 04/02/24 09:13 oxycodone (From Percocet) Allergy Hives Verified 04/02/24 09:13 prochlorperazine (From Allergy Unknown Verified 04/02/24 09:13 Compazine) allergy reaction rizatriptan (From Maxalt) Allergy Unknown Verified 04/02/24 09:13 allergy reaction Penicillins AdvReac upset Verified 04/02/24 09:13 stomach PFSH PFSH Disclaimer: The information contained in this section may have been updated after the patient was seen, as this information can be updated by other users. Medical History (Updated 04/02/24 @ 14:39 by Ermelinda Bermudez RN) Colon cancer screening Insomnia Post op infection Ena-prosthetic fracture of proximal tibia Complication of external fixation device with internal components Charcot's joint of foot Stage 3 chronic kidney disease Diastolic dysfunction Abnormal findings on diagnostic imaging of heart and coronary circulation Atypical angina delivery delivered Anxiety and depression Asthma HLD (hyperlipidemia) HTN (hypertension) Diabetes Allergic rhinitis Dyspnea on exertion Left foot pain Migraine headache Neuropathy Nonunion of joint fusion Sprain of anterior talofibular ligament of left ankle Tear of peroneal tendon Dizziness Dyspnea Encounter for pre-operative cardiovascular clearance Surgical History H/O eye surgery S/P cholecystectomy H/O: hysterectomy S/P carpal tunnel release Status post ankle fusion Status post surgical manipulation of ankle joint Family History Other Cancer Coronary artery disease Diabetes Hypertension Social History Smoking Status: Former smoker tobacco type: cigarettes packs per day: 1 second hand exposure: No alcohol intake: never substance use type: denies use current occupational status: retired Travel in the last 8 weeks: None household members: spouse housing: house marital status: 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 current occupational exposures/hazards: No caffeine: Yes Have you lived/traveled outside [place] in past 30 days?: No Contact w/someone who lives/traveled outside [place] past 30 days?: No Exposure to someone with infectious disease in past 14 days?: No Do you have a fever (greater than 100.4 F or 38 C)?: No Have you tested positive for COVID-19: No Exposed to someone with COVID-19 in past 14 days?: No Do you have a sore throat?: No Do you have a cough?: No Do you have any weakness?: Yes Do you have any diarrhea?: No Are you experiencing any unusual bleeding?: No Do you have any muscle aches/pain?: No Do you have any abdominal pain?: No Are you experiencing loss of taste or smell?: No Other Medical History Have you received the Flu Vaccine for this season: No Have you received the Pneumonia Vaccine: Yes ROS Obtained: Yes other As per HPI Physical Exam General General appearance: alert and in no apparent distress Head Head exam: atraumatic and normocephalic Eye Eye exam: Present normal appearance Neck Neck exam: Present normal inspection Chest Chest inspection: Present normal inspection and symmetric chest wall rise Respiratory Respiratory exam: Present normal lung sounds bilaterally; Absent respiratory distress Cardiovascular Cardiovascular exam: Present regular rate and normal rhythm Abdominal Exam Abdominal exam: Present soft Neurological Exam Neurological exam: Present alert and oriented X3 Psychiatric Psychiatric exam: Present normal affect and normal mood Skin Skin exam: Present warm and dry Other Other exam information: Right lower extremity with external fixation Medical Decision Making Medical Records Medical records reviewed: Yes I reviewed the patient's medical records. Screening: Per USPSTF and CDC recommendations, given the prevalence of disease in our region, it is our hospital?s policy to screen for HIV and viral Hepatitis for all patients aged 18 and over and those with ongoing risk factors. [place] Inquiry Pt receiving controlled substance: No Vital Signs: 04/02/24 10:43 04/02/24 10:49 04/02/24 10:56 Temperature Temperature Source Pulse Rate 60 59 L Pulse Rate [Left Radial] 59 L Respiratory Rate 18 14 12 Blood Pressure 86/47 L 90/41 L Blood Pressure [Right Arm] 90/47 L Blood Pressure Mean [Right Arm] 61 02 Sat by Pulse Oximetry 100 96 98 Oxygen Delivery Method Room Air Room Air Room Air Oxygen Flow Rate (LPM) 04/02/24 11:01 04/02/24 11:06 04/02/24 11:10 Temperature Temperature Source Pulse Rate 66 60 60 Pulse Rate [Left Radial] Respiratory Rate 11 L 13 12 Blood Pressure 91/47 L 84/44 L 92/46 L Blood Pressure [Right Arm] Blood Pressure Mean [Right Arm] 02 Sat by Pulse Oximetry 97 98 98 Oxygen Delivery Method Room Air Room Air Room Air Oxygen Flow Rate (LPM) 04/02/24 11:16 04/02/24 11:21 04/02/24 11:25 Temperature Temperature Source Pulse Rate 61 60 60 Pulse Rate [Left Radial] Respiratory Rate 14 17 14 Blood Pressure 97/44 L 87/46 L 96/43 L Blood Pressure [Right Arm] Blood Pressure Mean [Right Arm] 02 Sat by Pulse Oximetry 97 96 96 Oxygen Delivery Method Room Air Room Air Room Air Oxygen Flow Rate (LPM) 04/02/24 11:31 04/02/24 11:35 04/02/24 11:41 Temperature Temperature Source Pulse Rate 61 60 59 L Pulse Rate [Left Radial] Respiratory Rate 12 15 10 L Blood Pressure 85/63 L 98/46 L 88/57 L Blood Pressure [Right Arm] Blood Pressure Mean [Right Arm] 02 Sat by Pulse Oximetry 97 95 93 L Oxygen Delivery Method Room Air Room Air Room Air Oxygen Flow Rate (LPM) 04/02/24 11:46 04/02/24 11:51 04/02/24 11:56 Temperature Temperature Source Pulse Rate 58 L 57 L 57 L Pulse Rate [Left Radial] Respiratory Rate 11 L 11 L 11 L Blood Pressure 94/45 L 89/41 L 79/46 L Blood Pressure [Right Arm] Blood Pressure Mean [Right Arm] 02 Sat by Pulse Oximetry 94 L 98 97 Oxygen Delivery Method Room Air Room Air Room Air Oxygen Flow Rate (LPM) 04/02/24 12:00 04/02/24 12:06 04/02/24 12:09 Temperature Temperature Source Pulse Rate 58 L Pulse Rate [Left Radial] Respiratory Rate 11 L 15 12 Blood Pressure 92/44 L 87/65 L 93/55 L Blood Pressure [Right Arm] Blood Pressure Mean [Right Arm] 02 Sat by Pulse Oximetry 98 Oxygen Delivery Method Room Air Room Air Room Air Oxygen Flow Rate (LPM) 04/02/24 12:10 04/02/24 12:16 04/02/24 12:24 Temperature Temperature Source Pulse Rate 60 Pulse Rate [Left Radial] Respiratory Rate 16 15 14 Blood Pressure 103/55 L 110/55 L 100/50 L Blood Pressure [Right Arm] Blood Pressure Mean [Right Arm] 02 Sat by Pulse Oximetry 100 Oxygen Delivery Method Room Air Room Air Room Air Oxygen Flow Rate (LPM) 04/02/24 12:26 04/02/24 12:31 04/02/24 12:36 Temperature Temperature Source Pulse Rate 60 62 62 Pulse Rate [Left Radial] Respiratory Rate 14 16 16 Blood Pressure 105/44 L 110/50 L 107/55 L Blood Pressure [Right Arm] Blood Pressure Mean [Right Arm] 02 Sat by Pulse Oximetry 98 100 99 Oxygen Delivery Method Room Air Room Air Room Air Oxygen Flow Rate (LPM) 04/02/24 12:41 04/02/24 12:46 04/02/24 12:51 Temperature Temperature Source Pulse Rate 62 62 62 Pulse Rate [Left Radial] Respiratory Rate 14 13 14 Blood Pressure 111/56 L 109/52 L 119/52 L Blood Pressure [Right Arm] Blood Pressure Mean [Right Arm] 02 Sat by Pulse Oximetry 99 98 98 Oxygen Delivery Method Room Air Room Air Room Air Oxygen Flow Rate (LPM) 04/02/24 12:56 04/02/24 13:01 04/02/24 13:06 Temperature Temperature Source Pulse Rate 62 62 62 Pulse Rate [Left Radial] Respiratory Rate 12 15 15 Blood Pressure 107/56 L 117/58 L 110/53 L Blood Pressure [Right Arm] Blood Pressure Mean [Right Arm] 02 Sat by Pulse Oximetry 97 99 98 Oxygen Delivery Method Room Air Room Air Room Air Oxygen Flow Rate (LPM) 04/02/24 13:11 04/02/24 13:16 04/02/24 13:21 Temperature Temperature Source Pulse Rate 61 61 62 Pulse Rate [Left Radial] Respiratory Rate 15 14 15 Blood Pressure 116/56 L 112/53 L 121/59 L Blood Pressure [Right Arm] Blood Pressure Mean [Right Arm] 02 Sat by Pulse Oximetry 100 96 98 Oxygen Delivery Method Room Air Room Air Room Air Oxygen Flow Rate (LPM) 04/02/24 13:26 04/02/24 13:30 04/02/24 13:36 Temperature Temperature Source Pulse Rate 60 62 60 Pulse Rate [Left Radial] Respiratory Rate 13 12 15 Blood Pressure 123/103 H 120/55 L 121/59 L Blood Pressure [Right Arm] Blood Pressure Mean [Right Arm] 02 Sat by Pulse Oximetry 97 96 98 Oxygen Delivery Method Room Air Room Air Room Air Oxygen Flow Rate (LPM) 04/02/24 14:28 Temperature 97.8 F Temperature Source Oral Pulse Rate 76 Pulse Rate [Left Radial] Respiratory Rate 18 Blood Pressure 150/90 H Blood Pressure [Right Arm] Blood Pressure Mean [Right Arm] 02 Sat by Pulse Oximetry Oxygen Delivery Method Oxygen Flow Rate (LPM) 99 Lab Data Lab Results 04/02/24 10:52: WBC 10.5, RBC 4.53, Hgb 13.9, Hct 42.8, MCV 94.6, MCH 30.6, MCHC 32.4, RDW 14.8, Plt Count 343, MPV 8.9, Neut % (Auto) 43.2, Lymph % (Auto) 47.9, [place] % (Auto) 5.8, Eos % (Auto) 2.4, Baso % (Auto) 0.8, Neut # (Auto) 4.6, Lymph # (Auto) 5.1 H, [place] # (Auto) 0.6, Eos # (Auto) 0.3, Baso # (Auto) 0.1, ESR 21, D-Dimer 1.05 H, Sodium 133 L, Potassium 3.2 L, Chloride 99, Carbon Dioxide 25, Anion Gap 12.2, BUN 47 H, Creatinine 2.90 H, Estimated Creat Clear 36, Estimated GFR 17 L*, Est GFR ( Amer) 20 L, Glucose 118 H, Calcium 9.0, Magnesium 2.2, Total Bilirubin 0.5, AST 53 H, ALT 16, Alkaline Phosphatase 108, Total Creatine Kinase 60, Troponin I < 0.01, C-Reactive Protein 5.6 H, NT-Pro-B Natriuret Pep 42.5, Total Protein 6.9, Albumin 3.7, Globulin 3.2, Albumin/Globulin Ratio 1.2, Lipase 67, Procalcitonin 0.104, TSH 3.09, Free T4 1.03 04/02/24 11:19: SARS-CoV-2 (PCR) Not detected, Influenza A Untype (PCR) Not detected, Influenza Type B (PCR) Not detected 04/02/24 10:52 04/02/24 10:52 Orders (Tests/Meds): ED MEDICATIONS Generic Name Dose Route Start Last Admin Trade Name Freq PRN Reason Stop Dose Admin Acetaminophen 650 mg 04/02/24 14:04 Acetaminophen 325mg Tab PO 05/02/24 14:03 Q4HP PRN Fever or Mild Pain (1-3) Enoxaparin Sodium 40 mg 04/03/24 09:00 Enoxaparin 40mg/0.4ml Syringe SUBCUT 05/03/24 08:59 DAILY DESTINY Ondansetron HCl 4 mg 04/02/24 14:04 Ondansetron 4mg/2ml Vial IV 05/02/24 14:03 Q8HP PRN Nausea Discontinued Medications Generic Name Dose Route Start Last Admin Trade Name Freq PRN Reason Stop Dose Admin Sodium Chloride 1,000 mls @ 999 mls/hr 04/02/24 12:30 04/02/24 12:24 Sod Chlor 0.9% 1000ml Bag IV 04/02/24 13:30 999 mls/hr .Q1H1M DESTINY Administration Sodium Chloride 1,000 mls @ 999 mls/hr 04/02/24 11:00 04/02/24 11:00 Sod Chlor 0.9% 1000ml Bag IV 04/02/24 12:00 999 mls/hr .Q1H1M DESTINY Administration ORDERS Category Date Time Status BNP [NT Pro Brain Natriuretic Pep.] Stat Lab 04/02/24 10:52 Completed CBC w/Auto Diff [Complete Blood Count Auto Diff] Stat Lab 04/02/24 10:52 Completed CK [Creatine Kinase] Stat Lab 04/02/24 10:52 Completed CMP [Comprehensive Metabolic Panel] Stat Lab 04/02/24 10:52 Completed CRP [C-Reactive Protein] Stat Lab 04/02/24 10:52 Completed D-Dimer Stat Lab 04/02/24 10:52 Completed ESR [Erythrocyte Sedimentation Rate] Stat Lab 04/02/24 10:52 Completed Free T4 (Free Thyroxine) Stat Lab 04/02/24 10:52 Completed HIV (1&2) Antibody Rapid Stat Lab 04/02/24 10:52 Received Hep C Ab with Reflex to RNA Stat Lab 04/02/24 10:52 Received Lipase Stat Lab 04/02/24 10:52 Completed MAG [Magnesium] Stat Lab 04/02/24 10:52 Completed Procalcitonin Stat Lab 04/02/24 10:52 Completed Rapid PCR Covid and Flu A/B Stat Lab 04/02/24 11:19 Completed TSH [Thyroid Stimulating Hormone] Stat Lab 04/02/24 10:52 Completed Troponin I Q3H Lab 04/02/24 10:52 Completed Troponin I Q3H Lab 04/02/24 14:56 Completed Urinalysis and Microscopic Stat Lab 04/02/24 11:05 Ordered Medical Decision Narrative: Patient with history and exam per above presenting for evaluation of syncope, hypoglycemia Diagnoses considered include polypharmacy, infection, DVT, no clinical evidence at this time to suggest stroke ED workup and treatment included: ED MEDICATIONS Generic Name Dose Route Start Last Admin Trade Name Freq PRN Reason Stop Dose Admin Acetaminophen 650 mg 04/02/24 14:04 Acetaminophen 325mg Tab PO 05/02/24 14:03 Q4HP PRN Fever or Mild Pain (1-3) Enoxaparin Sodium 40 mg 04/03/24 09:00 Enoxaparin 40mg/0.4ml Syringe SUBCUT 05/03/24 08:59 DAILY DESTINY Ondansetron HCl 4 mg 04/02/24 14:04 Ondansetron 4mg/2ml Vial IV 05/02/24 14:03 Q8HP PRN Nausea Discontinued Medications Generic Name Dose Route Start Last Admin Trade Name Freq PRN Reason Stop Dose Admin Sodium Chloride 1,000 mls @ 999 mls/hr 04/02/24 12:30 04/02/24 12:24 Sod Chlor 0.9% 1000ml Bag IV 04/02/24 13:30 999 mls/hr .Q1H1M DESTINY Administration Sodium Chloride 1,000 mls @ 999 mls/hr 04/02/24 11:00 04/02/24 11:00 Sod Chlor 0.9% 1000ml Bag IV 04/02/24 12:00 999 mls/hr .Q1H1M DESTINY Administration ORDERS Category Date Time Status BNP [NT Pro Brain Natriuretic Pep.] Stat Lab 04/02/24 10:52 Completed CBC w/Auto Diff [Complete Blood Count Auto Diff] Stat Lab 04/02/24 10:52 Completed CK [Creatine Kinase] Stat Lab 04/02/24 10:52 Completed CMP [Comprehensive Metabolic Panel] Stat Lab 04/02/24 10:52 Completed CRP [C-Reactive Protein] Stat Lab 04/02/24 10:52 Completed D-Dimer Stat Lab 04/02/24 10:52 Completed ESR [Erythrocyte Sedimentation Rate] Stat Lab 04/02/24 10:52 Completed Free T4 (Free Thyroxine) Stat Lab 04/02/24 10:52 Completed HIV (1&2) Antibody Rapid Stat Lab 04/02/24 10:52 Received Hep C Ab with Reflex to RNA Stat Lab 04/02/24 10:52 Received Lipase Stat Lab 04/02/24 10:52 Completed MAG [Magnesium] Stat Lab 04/02/24 10:52 Completed Procalcitonin Stat Lab 04/02/24 10:52 Completed Rapid PCR Covid and Flu A/B Stat Lab 04/02/24 11:19 Completed TSH [Thyroid Stimulating Hormone] Stat Lab 04/02/24 10:52 Completed Troponin I Q3H Lab 04/02/24 10:52 Completed Troponin I Q3H Lab 04/02/24 14:56 Completed Urinalysis and Microscopic Stat Lab 04/02/24 11:05 Ordered Labs were independently interpreted by me, significant for acute kidney injury Patient will benefit from admission for further workup and treatment on inpatient basis. Patient was accepted for admission by hospitalist. Critical Care Critical Care Time Critical Care Time: No
[2024-04-02 11:22] LABS: Basophils # 0.1 K/mm3 (0-0.2); Basophils % 0.8 % (0.1-2.0); Creatine Kinase 60 U/L (30-135); Eosinophils # 0.3 K/mm3 (0.0-0.4); Eosinophils % 2.4 % (0.1-12.0); Hematocrit 42.8 % (37.0-47.0); Hemoglobin 13.9 g/dL (12.2-16.2); Lipase 67 U/L (23-300); Lymphocytes # 5.1 K/mm3 (0.7-4.5); Lymphocytes % 47.9 % (10-50); Magnesium 2.2 mg/dl (1.6-2.3); Mean Corpuscular HGB Conc 32.4 g/dL (31.8-35.4); Mean Corpuscular Hemoglobin 30.6 pg (27.0-31.2); Mean Corpuscular Volume 94.6 fl (81-99); Mean Platelet Volume 8.9 fl (7.4-10.4); Monocytes # 0.6 K/mm3 (0.1-1.0); Monocytes % 5.8 % (1.7-9.3); Neutrophils # 4.6 K/mm3 (1.8-7.8); Neutrophils % 43.2 % (37.0-80.0); Platelet Count 343 K/mm3 (142-424); Red Blood Count 4.53 M/mm3 (4.20-5.40); Red Cell Distribution Width 14.8 % (11.5-17.5); White Blood Count 10.5 K/mm3 (4.8-10.8)
[2024-04-02 11:23] LABS: Alanine Aminotransferase 16 U/L (12-78); Albumin Level 3.7 g/dl (3.5-5.0); Albumin/Globulin Ratio 1.2 (1.1-1.8); Alkaline Phosphatase 108 U/L (38-126); Aspartate Amino Transferase 53 U/L (14-36); Bilirubin,Total 0.5 mg/dl (0.2-1.3); Blood Urea Nitrogen 47 mg/dl (7-17); Carbon Dioxide 25 mmol/L (22.0-30.0); Chloride 99 mmol/L (98-107); Creatinine Clearance Estimated 36 mL/min (50-200); Estimated Glomerular Filt Rate 17 ml/min (>60); GFR (African American) 20 ML/MIN (>60); Globulin 3.2 g/dL (1.3-3.2); Glucose 118 mg/dl (74-100); Sodium 133 mmol/L (136-145); Total Protein,Serum 6.9 g/dl (6.3-8.2)
[2024-04-02 11:24] LABS: Anion Gap 12.2 mEq/L (5-15); Potassium 3.2 mmoL/L (3.5-5.1)
[2024-04-02 11:27] LABS: Coronavirus 19, PCR Not Detected (NotDetected); Influenza A, PCR Not Detected (NotDetected); Influenza B, PCR Not Detected (NotDetected)
[2024-04-02 11:28] LABS: C-Reactive Protein 5.6 mg/L (0-4)
[2024-04-02 11:33] LABS: D-Dimer 1.05 ug/mL (0.0-0.5)
[2024-04-02 11:34] LABS: NT Pro Brain Natriuretic Pep. 42.5 pg/mL (0-125)
[2024-04-02 11:39] LABS: Troponin I < 0.01 ng/ml (0.00-0.034)
[2024-04-02 11:42] LABS: Free T4 (Free Thyroxine) 1.03 ng/dl (0.78-2.19)
[2024-04-02 11:55] LABS: Erythrocyte Sedimentation Rate 21 mm/hr (0-30)
[2024-04-02 11:56] LABS: Procalcitonin 0.104 ng/mL (0.0-2.0); Thyroid Stimulating Hormone 3.09 uIU/mL (0.465-4.68)
--- NOTE | 2024-04-02 12:03 | PC.NURSE ---
FSBS is 79 at this time.
--- NOTE | 2024-04-02 13:38 | PC.NURSE ---
Called for bed assignment.
[2024-04-02 15:30] LABS: Troponin I 0.02 ng/ml (0.00-0.034)
[2024-04-02 17:15] LABS: POC Glucose,Bedside 136 (70-110)
--- NOTE | 2024-04-02 18:32 | PC.WOUNDNOTE ---
rt foot with fixator
--- NOTE | 2024-04-02 19:33 | EXP.HP ---
History of Present Illness *Admission Date: 04/02/24 *Reason for visit:: ELINA, generalized weakness *History of present illness: Ewa Guallpa is a 58-year-old female with a medical history significant for right Charcot foot s/p reconstruction after foot fractures, insulin dependent diabetes, hypertension, GERD who presents with generalized weakness, hypoglycemia, and syncopal events. Patient states that she has had somewhat of an increased pain in her right foot/leg that has undergone reconstruction, and was due to see orthopedic surgery today. However, last night patient became weak and was found to have a blood sugar in the 50s at home. Has been gave her some food which improved to 80s. Blood sugar this morning was apparently in 300s. They followed up with her PCP this morning, and upon leaving the office patient had syncopal event with loss of consciousness for a couple seconds. and nursing staff at PCPs office helped her to the car, and brought her to the ED. In the parking lot patient had another syncopal episode. On arrival, patient's blood pressure was 73/48 requiring fluid resuscitation with 2 L NS bolus. Workup significant for creatinine 2.9 (baseline 1.6), blood glucose 136, normal WBC, ESR, CRP. Case discussed with the ED provider and decision was made to admit patient for symptomatic hypotension, hypoglycemia. [facility] Disclaimer: The information contained in this section may have been updated after the patient was seen, as this information can be updated by other users. Medical History (Updated 04/02/24 @ 20:25 by Kendall Lopez MD) Colon cancer screening Insomnia Post op infection Ena-prosthetic fracture of proximal tibia Complication of external fixation device with internal components Charcot's joint of foot Stage 3 chronic kidney disease Diastolic dysfunction Abnormal findings on diagnostic imaging of heart and coronary circulation Atypical angina delivery delivered Anxiety and depression Asthma HLD (hyperlipidemia) HTN (hypertension) Diabetes Allergic rhinitis Dyspnea on exertion Left foot pain Migraine headache Neuropathy Nonunion of joint fusion Sprain of anterior talofibular ligament of left ankle Tear of peroneal tendon Dizziness Dyspnea Encounter for pre-operative cardiovascular clearance Surgical History H/O eye surgery S/P cholecystectomy H/O: hysterectomy S/P carpal tunnel release Status post ankle fusion Status post surgical manipulation of ankle joint Family History Other Cancer Coronary artery disease Diabetes Hypertension Social History Smoking Status: Former smoker tobacco type: cigarettes packs per day: 1 second hand exposure: No alcohol intake: never substance use type: denies use current occupational status: retired Travel in the last 8 weeks: None household members: spouse housing: house marital status: 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 current occupational exposures/hazards: No caffeine: Yes Have you lived/traveled outside [place] in past 30 days?: No Contact w/someone who lives/traveled outside US past 30 days?: No Exposure to someone with infectious disease in past 14 days?: No Do you have a fever (greater than 100.4 F or 38 C)?: No Have you tested positive for COVID-19: No Exposed to someone with COVID-19 in past 14 days?: No Do you have a sore throat?: No Do you have a cough?: No Do you have any weakness?: Yes Do you have any diarrhea?: No Are you experiencing any unusual bleeding?: No Do you have any muscle aches/pain?: No Do you have any abdominal pain?: No Are you experiencing loss of taste or smell?: No Other Medical History Have you received the Flu Vaccine for this season: Yes Have you received the Pneumonia Vaccine: No Meds Home Medications and Allergies Home Medications ?Medication ?Instructions ?Recorded ?Confirmed ?Type ascorbic acid (vitamin C) 100 mg 100 mg PO DAILY Supplement 08/28/22 04/02/24 History tablet (Vitamin C) vitamin B12 0.5 mg-folic acid 1 mg 1 tab PO DAILY Supplement 90 days 02/07/23 04/02/24 Rx tablet #90 tabs blood pressure monitor (Blood #1 ea 06/13/23 04/02/24 Rx Pressure Kit) lancets 33 gauge (OneTouch Delica #100 ea 06/27/23 04/02/24 Rx Plus Lancet) duloxetine 60 mg capsule,delayed 60 mg PO HS 08/04/23 04/02/24 History release montelukast 10 mg tablet 10 mg PO HS 08/04/23 04/02/24 History aspirin 81 mg tablet,delayed 81 mg PO DAILY #30 tabs 08/08/23 04/02/24 Rx release blood-glucose meter,continuous #1 ea 09/03/23 04/02/24 Rx (FreeStyle Jayshree 3 [place]) blood-glucose sensor (FreeStyle #4 ea 09/03/23 04/02/24 Rx Jayshree 3 Sensor device) ubrogepant 100 mg tablet (Ubrelvy) 100 mg PO ONCE PRN migraine 09/05/23 04/02/24 Rx headache #10 tabs pen needle, diabetic 32 gauge x #100 ea 09/06/23 04/02/24 Rx 5/32 (Pen Needle) insulin NPH-regular 70-30 U-100 65 unit (0.65 mL) SQ BID 90 days 09/11/23 04/02/24 Rx insulin 100 unit/mL subcutaneous #117 mL pen (Humulin 70/30 U-100 KwikPen) insulin glargine 100 unit/mL (3 15 unit (0.15 mL) SQ BID 30 days 10/17/23 04/02/24 Rx mL) subcutaneous pen (Lantus #9 mL Solostar U-100 Insulin) estradiol 2 mg tablet (Estrace) 8 mg PO DAILY 11/05/23 04/02/24 History pregabalin 150 mg capsule 150 mg PO TID pain 30 days #90 caps 12/12/23 04/02/24 Rx blood sugar diagnostic (OneTouch #100 ea 01/20/24 04/02/24 Rx Ultra Test strips) losartan 50 mg tablet 50 mg PO DAILY 90 days #30 tabs 03/17/24 04/02/24 Rx metoprolol succinate 50 mg See Rx Instructions .Route 03/18/24 04/02/24 Rx tablet,extended release 24 hr .COMPLEX #45 tabs pantoprazole 40 mg tablet,delayed See Rx Instructions .Route 03/18/24 04/02/24 Rx release .COMPLEX #30 tabs simvastatin 40 mg tablet See Rx Instructions .Route 03/18/24 04/02/24 Rx .COMPLEX #30 tabs triamterene 37.5 See Rx Instructions .Route 03/18/24 04/02/24 Rx mg-hydrochlorothiazide 25 mg tablet .COMPLEX #30 tabs escitalopram oxalate 10 mg tablet See Rx Instructions .Route 03/26/24 04/02/24 Rx .COMPLEX #90 tabs ezetimibe 10 mg tablet See Rx Instructions .Route 03/26/24 04/02/24 Rx .COMPLEX #30 tabs cholecalciferol (vitamin D3) 50 50 mcg PO DAILY supplement #90 04/02/24 04/02/24 Rx mcg (2,000 unit) capsule (Vitamin caps D3) New Prescriptions to Start Prescriptions: Allergies Allergy/AdvReac Type Severity Reaction Status Date / Time ranitidine (RANITIDINE) Allergy Severe Anaphylaxis Verified 04/02/24 09:13 vancomycin Allergy Severe Anaphylaxis Verified 04/02/24 09:13 adhesive tape (ADHESIVE TAPE) Allergy Intermediate I-RASH Verified 04/02/24 09:13 bupropion (BUPROPION) Allergy Intermediate I-HIVES Verified 04/02/24 09:13 butorphanol (BUTORPHANOL) Allergy Intermediate I-HIVES Verified 04/02/24 09:13 calcium (From DHEA) Allergy Intermediate I-HIVES Verified 04/02/24 09:13 calcium carbonate (From DHEA) Allergy Intermediate I-HIVES Verified 04/02/24 09:13 codeine (CODEINE) Allergy Intermediate I-HIVES Verified 04/02/24 09:13 hydromorphone (HYDROMORPHONE) Allergy Intermediate I-HIVES Verified 04/02/24 09:13 prasterone (DHEA) (From DHEA) Allergy Intermediate I-HIVES Verified 04/02/24 09:13 sumatriptan (From IMITREX) Allergy Intermediate I-HIVES Verified 04/02/24 09:13 morphine (MORPHINE) Allergy Unknown HEADACHE Verified 04/02/24 09:13 oxycodone (From Percocet) Allergy Hives Verified 04/02/24 09:13 prochlorperazine (From Allergy Unknown Verified 04/02/24 09:13 Compazine) allergy reaction rizatriptan (From Maxalt) Allergy Unknown Verified 04/02/24 09:13 allergy reaction Penicillins AdvReac upset Verified 04/02/24 09:13 stomach Exam Data for Last 24 hours Vital signs and Labs for Last 24 Hours: Temp Pulse Resp BP Pulse Ox O2 Del Method O2 Flow Rate 97.6 F 63 15 94/46 L 98 Room Air 99 04/02/24 16:00 04/02/24 16:00 04/02/24 16:00 04/02/24 16:00 04/02/24 16:00 04/02/24 18:37 04/02/24 14:28 Laboratory Results - last 24 hr 04/02/24 10:52: WBC 10.5, RBC 4.53, Hgb 13.9, Hct 42.8, MCV 94.6, MCH 30.6, MCHC 32.4, RDW 14.8, Plt Count 343, MPV 8.9, Neut % (Auto) 43.2, Lymph % (Auto) 47.9, [place] % (Auto) 5.8, Eos % (Auto) 2.4, Baso % (Auto) 0.8, Neut # (Auto) 4.6, Lymph # (Auto) 5.1 H, [place] # (Auto) 0.6, Eos # (Auto) 0.3, Baso # (Auto) 0.1, ESR 21, D-Dimer 1.05 H, Sodium 133 L, Potassium 3.2 L, Chloride 99, Carbon Dioxide 25, Anion Gap 12.2, BUN 47 H, Creatinine 2.90 H, Estimated Creat Clear 36, Estimated GFR 17 L*, Est GFR ( Amer) 20 L, Glucose 118 H, Calcium 9.0, Magnesium 2.2, Total Bilirubin 0.5, AST 53 H, ALT 16, Alkaline Phosphatase 108, Total Creatine Kinase 60, Troponin I < 0.01, C-Reactive Protein 5.6 H, NT-Pro-B Natriuret Pep 42.5, Total Protein 6.9, Albumin 3.7, Globulin 3.2, Albumin/Globulin Ratio 1.2, Lipase 67, Procalcitonin 0.104, TSH 3.09, Free T4 1.03 04/02/24 11:19: SARS-CoV-2 (PCR) Not detected, Influenza A Untype (PCR) Not detected, Influenza Type B (PCR) Not detected 04/02/24 14:56: Troponin I 0.02 04/02/24 17:00: POC Glucose 136 H I & O for Last 24 hours: Intake & Output 03/30/24 03/31/24 04/01/24 04/02/24 23:59 23:59 23:59 23:59 Intake Total 360 / 360 Balance 360 / 360 Weight 112.519 kg Constitutional Constitutional: no acute distress and obese *Routine HEENT Exam Head: Present normocephalic Eye: Present EOMI and PERRL ENT: Present mucous membranes moist *Routine Neck Exam Neck: Present supple; Absent lymphadenopathy *Routine Respiratory Exam Respiratory: Present CTA bilaterally *Routine Cardiovascular Exam Cardiovascular: Present RRR *Routine Abdominal Exam Abdominal: Present soft and normoactive bowel sounds; Absent tenderness *Routine Rectal Exam Rectal:: deferred *Routine Genitalia Exam Genitalia:: deferred *Routine Extremities Exam Extremities: Absent cyanosis, clubbing or edema Comments: Right foot cage in place. No signs of overt infection. *Routine Skin Exam Skin: Present warm; Absent rash *Routine Neurological Exam Neurological: Present alert and oriented X3 Assessment and Plan *Assessment and plan (1) Hypotension: Status: Acute Category: Medical Code(s): I95.9 - Hypotension, unspecified (2) Hypoglycemia: Status: Acute Category: Medical Code(s): E16.2 - Hypoglycemia, unspecified (3) ELINA (acute kidney injury): Status: Acute Category: Medical Code(s): N17.9 - Acute kidney failure, unspecified (4) Syncope: Status: Resolved Qualifiers: Syncope type: unspecified Qualified Code(s): R55 - Syncope and collapse Category: Medical Code(s): R55 - Syncope and collapse (5) Charcot joint of foot: Status: Acute Category: Medical Code(s): M14.679 - Charcot's joint, unspecified ankle and foot Plan Ewa Guallpa is a 58-year-old female with a medical history significant for right Charcot foot s/p reconstruction after foot fractures, insulin dependent diabetes, hypertension, GERD who presents with generalized weakness, hypoglycemia, and syncopal events. Patient states that she has had somewhat of an increased pain in her right foot/leg that has undergone reconstruction, and was due to see orthopedic surgery today. However, last night patient became weak and was found to have a blood sugar in the 50s at home. Has been gave her some food which improved to 80s. Blood sugar this morning was apparently in 300s. They followed up with her PCP this morning, and upon leaving the office patient had syncopal event with loss of consciousness for a couple seconds. and nursing staff at PCPs office helped her to the car, and brought her to the ED. In the parking lot patient had another syncopal episode. On arrival, patient's blood pressure was 73/48 requiring fluid resuscitation with 2 L NS bolus. Workup significant for creatinine 2.9 (baseline 1.6), blood glucose 136, normal WBC, ESR, CRP. Case discussed with the ED provider and decision was made to admit patient for symptomatic hypotension, hypoglycemia. #Hypotension, resolved #Hypoglycemia #ELINA on CKD #Syncope #History of hypertension, type 2 diabetes ? Initial hypotension resolved with IV fluid resuscitation. BP currently 94/46, but patient asymptomatic. ? Blood glucose stable, 162. ? Patient denies decreased p.o. intake, diarrhea, polyuria, nausea/vomiting. Though it is unclear how good of a historian she is. ? Polypharmacy may be contributing to hypoglycemia, hypotension. Takes Lantus 15 units, 70/30 65 units twice daily, metoprolol, triamterene, hydrochlorothiazide. ? Will hold above meds given episodes of hypotension, hypoglycemia. ? LDSSI, ACHS glucose checks. ? Continuous cardiac telemetry. Continue to monitor blood pressure, blood glucose. Every 4h glucose checks. ? Follow-up morning TSH, cortisol. - Follow-up orthostatic blood pressures tomorrow morning. ? Continue NS at 100 mL/h for ELINA. Creatinine 2.9, baseline 1.6. ? PT consulted, pending recommendations. #Charcot foot s/p reconstruction after foot fractures ? Looks stable. Foot cage in place. No signs of infection. ? Follow-up outpatient with orthopedic surgery. #GERD - Continue home PPI Full code DVT prophylaxis: Lovenox 40 mg
[2024-04-02] MEDS: PANTOPRAZOLE 40MG TABLET 40 MG PO (21:20)
[2024-04-02] MEDS: 0.9 % SODIUM CHLORIDE 1000ML 1,000 ML 100 ML IV (21:20)
[2024-04-02] MEDS: PATIENT'S OWN HOME MEDICATION (Pregabalin 150 mg capsule) 150 EACH PO (21:20)
[2024-04-02] MEDS: humaLOG 100 UNITS/ML 10ML VIAL (SSI) SUBCUT (21:28)
[2024-04-02 21:30] LABS: POC Glucose,Bedside 250 (70-110)
--- NOTE | 2024-04-02 22:56 | PC.NURSE ---
Pins and pin sites of the patient's fixator on her right lower extremity has been cleaned with sterile water and sterile gauze at this time. Sites appeared to be free of drainage and redness, as well as other signs of infection.
[2024-04-03] VITALS: BP 128/59; PULSE 70; PULSE 73; RESP 16; TEMP 36.8; O2SAT 94
--- NOTE | 2024-04-03 02:41 | PC.NURSE ---
Addendum entered by Saira Pierce RN 04/03/24 02:54: I asked the patient what she usually takes for pain, given her extensive allergy list. She stated that she is able to take morphine and Percocet, despite listed reactions. Morphine and oxycodone HCl were new orders obtained. I paged Harry EMANUEL to inform him of this and is aware. Patient requested to proceed with the morphine administration at this time. Original Note: At this time, patient started to report severe pain in her right foot after getting up to use the bedside commode. Patient reported her pain as a level 7. Harry EMANUEL was paged for additional pain medication orders (Tylenol was the only pain medication in her MAR at this time).
[2024-04-03] MEDS: MORPHINE 2MG/ML SYRINGE 2 MG IV ×3 (03:00→15:18)
[2024-04-03 04:00] VITALS: BP 122/59; PULSE 68; PULSE 70; RESP 14; TEMP 37; O2SAT 98; BMI 41.1
--- NOTE | 2024-04-03 04:06 | PC.NURSE ---
Patient is alert and oriented x4. Patient was observed to have eyes closed, respirations even and unlabored on room air, and no apparent distress throughout the majority of the night. Patient has a fixator in place on her right lower extremity; she stated that she has had help from family members to care for the area and cleanse the pin sites at home. She requested for the sites to be cleaned this shift (see prior note; 22:56); patient tolerated cleansing well, performed by me, with no reports of pain or discomfort. Skin was noted to be very dry on her right foot. She did complain once of right foot pain and was treated per MAR (see prior note; 02:41). Scheduled medications were given as appropriately per MAR. Normal saline is infusing at 100 mL/hr. Auscultation of the heart, lungs, and bowels were within normal findings. Patient has been running normal sinus on telemetry. Her vital signs have remained stable this shift. At this time, the patient is resting in bed without any further complaints. No acute changes noted thus far. Call light within reach. Home medications in room.
[2024-04-03 06:08] LABS: POC Glucose,Bedside 172 (70-110)
[2024-04-03] MEDS: humaLOG 100 UNITS/ML 10ML VIAL (SSI) SUBCUT ×2 (06:10→10:58)
[2024-04-03 06:11] LABS: HCV Ab Non Reactive (Non Reactive)
[2024-04-03 06:55] LABS: Albumin Level 3.2 g/dl (3.5-5.0); Chloride 106 mmol/L (98-107); Potassium 3.4 mmoL/L (3.5-5.1); Sodium 137 mmol/L (136-145)
[2024-04-03 06:57] LABS: Basophils % 0.5 % (0.1-2.0); Eosinophils # 0.4 K/mm3 (0.0-0.4); Eosinophils % 4.5 % (0.1-12.0); Hematocrit 40.3 % (37.0-47.0); Hemoglobin 13.2 g/dL (12.2-16.2); Lymphocytes # 3.1 K/mm3 (0.7-4.5); Lymphocytes % 40.1 % (10-50); Mean Corpuscular HGB Conc 32.7 g/dL (31.8-35.4); Mean Corpuscular Hemoglobin 30.8 pg (27.0-31.2); Mean Corpuscular Volume 94.3 fl (81-99); Mean Platelet Volume 8.7 fl (7.4-10.4); Monocytes # 0.4 K/mm3 (0.1-1.0); Monocytes % 5.6 % (1.7-9.3); Neutrophils # 3.9 K/mm3 (1.8-7.8); Neutrophils % 49.3 % (37.0-80.0); Platelet Count 316 K/mm3 (142-424); Red Blood Count 4.27 M/mm3 (4.20-5.40); Red Cell Distribution Width 14.9 % (11.5-17.5); White Blood Count 7.8 K/mm3 (4.8-10.8)
[2024-04-03 06:58] LABS: Alanine Aminotransferase 14 U/L (12-78); Alkaline Phosphatase 119 U/L (38-126); Anion Gap 9.4 mEq/L (5-15); Aspartate Amino Transferase 26 U/L (14-36); Bilirubin,Total 0.2 mg/dl (0.2-1.3); Blood Urea Nitrogen 42 mg/dl (7-17); Calcium 8.2 mg/dl (8.4-10.2); Carbon Dioxide 25 mmol/L (22.0-30.0); Creatinine Clearance Estimated 26 mL/min (50-200); Estimated Glomerular Filt Rate 24 ml/min (>60); GFR (African American) 29 ML/MIN (>60); Globulin 3.1 g/dL (1.3-3.2); Glucose 166 mg/dl (74-100); Total Protein,Serum 6.3 g/dl (6.3-8.2)
[2024-04-03 06:59] LABS: Magnesium 2.3 mg/dl (1.6-2.3)
[2024-04-03 07:26] LABS: Thyroid Stimulating Hormone 1.97 uIU/mL (0.465-4.68)
[2024-04-03 08:00] VITALS: BP 141/69; PULSE 70; PULSE 74; RESP 18; TEMP 36.8; O2SAT 98
[2024-04-03] MEDS: 0.9 % SODIUM CHLORIDE 1000ML 1,000 ML 100 ML IV (08:04)
[2024-04-03] MEDS: CITALOPRAM 20MG TABLET 20 MG PO (08:04)
[2024-04-03] MEDS: ENOXAPARIN 40MG/0.4ML SYRINGE 40 MG SUBCUT (08:05)
[2024-04-03] MEDS: ASPIRIN EC 81MG TABLET 81 MG PO (08:07)
--- NOTE | 2024-04-03 09:27 | HMH.PHAINT1 ---
Pharmacy Intervention Comments: MEDICATION RECONCILIATION COMPLETED ON PATIENT USING EXTERNAL FILL HISTORY FROM PHARMACY AND LIST FROM CARDIOLOGY OFFICE. -MARY ALEXIS, HANSD
--- NOTE | 2024-04-03 09:37 | HMH.PTEV ---
Physical Therapy Evaluation Rehab PT IP Evaluation Start: 04/02/24 20:26 Freq: ONCE Status: Active Protocol: Document 04/03/24 08:58 SIDRA (Rec: 04/03/24 09:04 SIDRA [id number]) Subjective/History History History Per H&P: Ewa Guallpa is a 58-year-old female with a medical history significant for right Charcot foot s/p reconstruction after foot fractures, insulin dependent diabetes, hypertension, GERD who presents with generalized weakness, hypoglycemia, and syncopal events. Patient states that she has had somewhat of an increased pain in her right foot/leg that has undergone reconstruction, and was due to see orthopedic surgery today. However, last night patient became weak and was found to have a blood sugar in the 50s at home. Has been gave her some food which improved to 80s. Blood sugar this morning was apparently in 300s. They followed up with her PCP this morning, and upon leaving the office patient had syncopal event with loss of consciousness for a couple seconds. and nursing staff at PCPs office helped her to the car, and brought her to the ED. In the parking lot patient had another syncopal episode. On arrival, patient' s blood pressure was 73/48 requiring fluid resuscitation with 2 L NS bolus. Workup significant for creatinine 2.9 (baseline 1.6), blood glucose 136, normal WBC, ESR, CRP. Case discussed with the ED provider and decision was made to admit patient for symptomatic hypotension, hypoglycemia. Subjective Subjective PLOF: IND with most mobility using RW and w/c. Pt normally uses a RW to transfer to and from w/c to BSC. Home: Pt lives in a single- story home with a ramped entrance. Pt owns a RW, w/c, hospital bed, ramp, and BSC. Available assistance: Pt lives with her who works FT and is not able to provide assistance. Pt is currently waiting for approval to have a caregiver. New diagnosis of cancer in past 12 No months? Rehab PT IP Eval Objective Appearance Patient Behavior Appropriate,Cooperative Patient Orientation Person,Place,Birthday, Situation Difficulty following instructions none Speech Pattern Clear Ambulation Patient Able to Ambulate No Balance Ability to Arise Able, uses arms to help Sitting Balance Steady, safe Standing Balance Steady, wide stance Dynamic Sitting Balance Ability Good Dynamic Standing Balance Ability Fair Transfers Bed Transfer Ability Supervision/Stand by Sit to Stand Bed Transfer Ability Supervision/Stand by Sit to Stand Chair Transfer Ability Contact Guard/Hand Hold Rehab PT IP prob,goals,plan Problems Date of Evaluation: 04/03/24 PT IP Problems Bed Mobility,Transfers,Gait, Balance,Safety Rehab Potential Rehab Potential Good Equipment Needs Assistive Devices Rolling / Wheeled Walker Plan PT Intervention Plan Bed Mobility,Transfers,Gait, Balance,Safety,Therapeutic Exercise Other Intervention Plan 1-2 times PT Plan Frequency Daily Duration LOS Discharge Goals Bed Transfer Ability Independent Sit to Stand Chair Transfer Ability Independent Discharge Plan PT Discharge Plan Pt presents below baseline in strength and mobility. Pt required CGA-SUP for transfer from EOB to recliner. PT recommending return home with home health services to address strength and mobility deficits. Eval Complexity Eval Charge Codes 43307 - Moderate Complexity PHYSICIAN CERTIFICATION: I certify the specified therapy services for Ewa Guallpa are required, authorized, and reviewed every 30 days.
[2024-04-03 10:30] VITALS: BP 125/59; BP 129/78; BP 139/67; PULSE 71; PULSE 74; PULSE 77
[2024-04-03] MEDS: OXYCODONE 5MG IMMEDIATE RELEASE TABLET 5 MG PO (10:57)
--- NOTE | 2024-04-03 11:08 | EXP.DC.SUM ---
General Admission date:: 04/02/24 Discharge date: 04/03/24 HPI HPI HPI: Ewa Guallpa is a 58-year-old female with a medical history significant for right Charcot foot s/p reconstruction after foot fractures, insulin dependent diabetes, hypertension, GERD who presents with generalized weakness, hypoglycemia, and syncopal events. Patient states that she has had somewhat of an increased pain in her right foot/leg that has undergone reconstruction, and was due to see orthopedic surgery today. However, last night patient became weak and was found to have a blood sugar in the 50s at home. Has been gave her some food which improved to 80s. Blood sugar this morning was apparently in 300s. They followed up with her PCP this morning, and upon leaving the office patient had syncopal event with loss of consciousness for a couple seconds. and nursing staff [facility] helped her to the car, and brought her to the ED. In the parking lot patient had another syncopal episode. On arrival, patient's blood pressure was 73/48 requiring fluid resuscitation with 2 L NS bolus. Workup significant for creatinine 2.9 (baseline 1.6), blood glucose 136, normal WBC, ESR, CRP. Case discussed with the ED provider and decision was made to admit patient for symptomatic hypotension, hypoglycemia. Hospital Course Hospital Course Hospital Course: Ewa Guallpa is a 58-year-old female with a medical history significant for right Charcot foot s/p reconstruction after foot fractures, insulin dependent diabetes, hypertension, GERD who presents with generalized weakness, hypoglycemia, and syncopal events. Patient states that she has had somewhat of an increased pain in her right foot/leg that has undergone reconstruction, and was due to see orthopedic surgery today. However, last night patient became weak and was found to have a blood sugar in the 50s at home. Has been gave her some food which improved to 80s. Blood sugar this morning was apparently in 300s. They followed up with her PCP this morning, and upon leaving the office patient had syncopal event with loss of consciousness for a couple seconds. and nursing staff [facility] helped her to the car, and brought her to the ED. In the parking lot patient had another syncopal episode. On arrival, patient's blood pressure was 73/48 requiring fluid resuscitation with 2 L NS bolus. Workup significant for creatinine 2.9 (baseline 1.6), blood glucose 136, normal WBC, ESR, CRP. Case discussed with the ED provider and decision was made to admit patient for symptomatic hypotension, hypoglycemia. Patient did well with gentle fluid resuscitation and adjustments to medications. Kidney function improving by morning of discharge. Nearing baseline. Stable to discharge home with close follow-up with PCP and medication adjustments. Problems addressed as follows: #Hypotension, resolved #Hypoglycemia #ELINA on CKD #Syncope #History of hypertension, type 2 diabetes ? Initial hypotension resolved with IV fluid resuscitation. Blood pressure improved to 137/71 by time of discharge. Patient asymptomatic. Orthostatics negative on day of discharge. Glucose improved as well. Tolerating p.o. intake. Polypharmacy may be contributing to hypoglycemia, hypotension. Takes Lantus 15 units, 70/30 65 units twice daily, metoprolol, triamterene, hydrochlorothiazide. Medic patients held during admission. Saw improvement in her glucose and her blood pressure. Monitor on telemetry with no events. TSH normal at 1.97. Cortisol acceptable. Stable discharge home with home health. Has assistance [id number]. Adjustments made to home regimen including decreasing metoprolol and stopping losartan and triamterene-HCTZ. #Charcot foot s/p reconstruction after foot fractures: Looks stable. Foot cage in place. No signs of infection. Follow-up outpatient with orthopedic surgery. #GERD: Continue home PPI Total time spent on discharge 32 minutes in counseling, documentation, chart review, and direct care with patient. Home health ordered at discharge to assist with PT and OT and improving ambulation and mobility Exam Data for Last 24 hours Vital signs and Labs for Last 24 Hours: Temp Pulse Resp BP Pulse Ox O2 Del Method O2 Flow Rate 98.2 F 71 18 125/59 L 98 Room Air 99 04/03/24 08:00 04/03/24 10:30 04/03/24 08:00 04/03/24 10:30 04/03/24 08:00 04/03/24 08:00 04/02/24 14:28 Laboratory Results - last 24 hr 04/02/24 10:52: WBC 10.5, RBC 4.53, Hgb 13.9, Hct 42.8, MCV 94.6, MCH 30.6, MCHC 32.4, RDW 14.8, Plt Count 343, MPV 8.9, Neut % (Auto) 43.2, Lymph % (Auto) 47.9, Robertson % (Auto) 5.8, Eos % (Auto) 2.4, Baso % (Auto) 0.8, Neut # (Auto) 4.6, Lymph # (Auto) 5.1 H, Robertson # (Auto) 0.6, Eos # (Auto) 0.3, Baso # (Auto) 0.1, ESR 21, D-Dimer 1.05 H, Sodium 133 L, Potassium 3.2 L, Chloride 99, Carbon Dioxide 25, Anion Gap 12.2, BUN 47 H, Creatinine 2.90 H, Estimated Creat Clear 36, Estimated GFR 17 L*, Est GFR ( Amer) 20 L, Glucose 118 H, Calcium 9.0, Magnesium 2.2, Total Bilirubin 0.5, AST 53 H, ALT 16, Alkaline Phosphatase 108, Total Creatine Kinase 60, Troponin I < 0.01, C-Reactive Protein 5.6 H, NT-Pro-B Natriuret Pep 42.5, Total Protein 6.9, Albumin 3.7, Globulin 3.2, Albumin/Globulin Ratio 1.2, Lipase 67, Procalcitonin 0.104, TSH 3.09, Free T4 1.03, Hepatitis C Antibody Non reactive 04/02/24 11:19: SARS-CoV-2 (PCR) Not detected, Influenza A Untype (PCR) Not detected, Influenza Type B (PCR) Not detected 04/02/24 14:56: Troponin I 0.02 04/02/24 17:00: POC Glucose 136 H 04/02/24 21:22: POC Glucose 250 H 04/03/24 06:00: POC Glucose 172 H 04/03/24 06:01: WBC 7.8 D, RBC 4.27, Hgb 13.2, Hct 40.3, MCV 94.3, MCH 30.8, MCHC 32.7, RDW 14.9, Plt Count 316, MPV 8.7, Neut % (Auto) 49.3, Lymph % (Auto) 40.1, Robertson % (Auto) 5.6, Eos % (Auto) 4.5, Baso % (Auto) 0.5, Neut # (Auto) 3.9, Lymph # (Auto) 3.1, Robertson # (Auto) 0.4, Eos # (Auto) 0.4, Baso # (Auto) 0.0, Sodium 137, Potassium 3.4 L, Chloride 106, Carbon Dioxide 25, Anion Gap 9.4, BUN 42 H, Creatinine 2.10 H D, Estimated Creat Clear 26, Estimated GFR 24 L, Est GFR ( Amer) 29 L D, Glucose 166 H D, Calcium 8.2 L, Magnesium 2.3, Total Bilirubin 0.2, AST 26 D, ALT 14, Alkaline Phosphatase 119, Total Protein 6.3, Albumin 3.2 L D, Globulin 3.1, Albumin/Globulin Ratio 1.0 L, TSH 1.97 D I & O for Last 24 hours: Intake & Output 03/31/24 04/01/24 04/02/24 04/03/24 23:59 23:59 23:59 23:59 Intake Total 360 / 360 806 / 806 Output Total 0 / 0 Balance 360 / 360 806 / 806 Weight 112.519 kg 111.992 kg Constitutional Constitutional: no acute distress, morbidly obese, chronically ill appearing and cooperative *Routine HEENT Exam Head: Present normocephalic Eye: Present EOMI and PERRL ENT: Present mucous membranes moist *Routine Neck Exam Neck: Present supple; Absent lymphadenopathy *Routine Respiratory Exam Respiratory: Present normal respiratory effort and symmetric chest movement; Absent rhonchi, wheezes or crackles *Routine Cardiovascular Exam Cardiovascular: Present RRR *Routine Abdominal Exam Abdominal: Present soft and normoactive bowel sounds; Absent tenderness *Routine Rectal Exam Patient deferred: visual exam *Routine Exam Patient deferred: external exam *Routine Extremities Exam Extremities: Absent cyanosis, clubbing or edema Comments: Right lower extremity in orthopedic appliance *Routine Skin Exam Skin: Present intact and warm; Absent cyanosis or rash *Routine Neurological Exam Neurological: Present alert, oriented X3 and moving all extremities; Absent altered mental status Routine Psychiatric Exam Psychiatric: Present normal affect and cooperative Results Data Completed and Pending Labs on day of discharge: Labs from last 24 hours 04/03/24 04/03/24 04/02/24 06:01 06:00 21:22 WBC 7.8 D RBC 4.27 Hgb 13.2 Hct 40.3 MCV 94.3 MCH 30.8 MCHC 32.7 RDW 14.9 Plt Count 316 MPV 8.7 Neut % (Auto) 49.3 Lymph % (Auto) 40.1 Robertson % (Auto) 5.6 Eos % (Auto) 4.5 Baso % (Auto) 0.5 Neut # (Auto) 3.9 Lymph # (Auto) 3.1 Robertson # (Auto) 0.4 Eos # (Auto) 0.4 Baso # (Auto) 0.0 ESR D-Dimer Sodium 137 Potassium 3.4 L Chloride 106 Carbon Dioxide 25 Anion Gap 9.4 BUN 42 H Creatinine 2.10 H D Estimated Creat Clear 26 Estimated GFR 24 L Est GFR ( Amer) 29 L D Glucose 166 H D POC Glucose 172 H 250 H Calcium 8.2 L Magnesium 2.3 Total Bilirubin 0.2 AST 26 D ALT 14 Alkaline Phosphatase 119 Total Creatine Kinase Troponin I C-Reactive Protein NT-Pro-B Natriuret Pep Total Protein 6.3 Albumin 3.2 L D Globulin 3.1 Albumin/Globulin Ratio 1.0 L Lipase Procalcitonin TSH 1.97 D Free T4 SARS-CoV-2 (PCR) Hepatitis C Antibody Influenza A Untype (PCR) Influenza Type B (PCR) 04/02/24 04/02/24 04/02/24 17:00 14:56 11:19 WBC RBC Hgb Hct MCV MCH MCHC RDW Plt Count MPV Neut % (Auto) Lymph % (Auto) Robertson % (Auto) Eos % (Auto) Baso % (Auto) Neut # (Auto) Lymph # (Auto) Robertson # (Auto) Eos # (Auto) Baso # (Auto) ESR D-Dimer Sodium Potassium Chloride Carbon Dioxide Anion Gap BUN Creatinine Estimated Creat Clear Estimated GFR Est GFR ( Amer) Glucose POC Glucose 136 H Calcium Magnesium Total Bilirubin AST ALT Alkaline Phosphatase Total Creatine Kinase Troponin I 0.02 C-Reactive Protein NT-Pro-B Natriuret Pep Total Protein Albumin Globulin Albumin/Globulin Ratio Lipase Procalcitonin TSH Free T4 SARS-CoV-2 (PCR) Not detected Hepatitis C Antibody Influenza A Untype (PCR) Not detected Influenza Type B (PCR) Not detected 04/02/24 10:52 WBC 10.5 RBC 4.53 Hgb 13.9 Hct 42.8 MCV 94.6 MCH 30.6 MCHC 32.4 RDW 14.8 Plt Count 343 MPV 8.9 Neut % (Auto) 43.2 Lymph % (Auto) 47.9 Robertson % (Auto) 5.8 Eos % (Auto) 2.4 Baso % (Auto) 0.8 Neut # (Auto) 4.6 Lymph # (Auto) 5.1 H Robertson # (Auto) 0.6 Eos # (Auto) 0.3 Baso # (Auto) 0.1 ESR 21 D-Dimer 1.05 H Sodium 133 L Potassium 3.2 L Chloride 99 Carbon Dioxide 25 Anion Gap 12.2 BUN 47 H Creatinine 2.90 H Estimated Creat Clear 36 Estimated GFR 17 L* Est GFR ( Amer) 20 L Glucose 118 H POC Glucose Calcium 9.0 Magnesium 2.2 Total Bilirubin 0.5 AST 53 H ALT 16 Alkaline Phosphatase 108 Total Creatine Kinase 60 Troponin I < 0.01 C-Reactive Protein 5.6 H NT-Pro-B Natriuret Pep 42.5 Total Protein 6.9 Albumin 3.7 Globulin 3.2 Albumin/Globulin Ratio 1.2 Lipase 67 Procalcitonin 0.104 TSH 3.09 Free T4 1.03 SARS-CoV-2 (PCR) Hepatitis C Antibody Non reactive Influenza A Untype (PCR) Influenza Type B (PCR) DS: Diagnosis Discharge Diagnosis (1) Hypotension: Status: Acute Code(s): I95.9 - Hypotension, unspecified (2) Hypoglycemia: Status: Acute Code(s): E16.2 - Hypoglycemia, unspecified (3) ELINA (acute kidney injury): Status: Acute Code(s): N17.9 - Acute kidney failure, unspecified (4) Syncope: Status: Resolved Code(s): R55 - Syncope and collapse Qualifiers: Syncope type: unspecified Qualified Code(s): R55 - Syncope and collapse (5) Charcot joint of foot: Status: Acute Code(s): M14.679 - Charcot's joint, unspecified ankle and foot Meds Home Medications and Allergies Home Medications ?Medication ?Instructions ?Recorded ?Confirmed ?Type ascorbic acid (vitamin C) 100 mg 100 mg PO DAILY 08/28/22 04/02/24 History tablet (Vitamin C) vitamin B12 0.5 mg-folic acid 1 mg 1 tab PO DAILY Supplement 90 days 02/07/23 04/02/24 Rx tablet #90 tabs blood pressure monitor (Blood #1 ea 06/13/23 04/02/24 Rx Pressure Kit) lancets 33 gauge (OneTouch Delica #100 ea 06/27/23 04/02/24 Rx Plus Lancet) duloxetine 60 mg capsule,delayed 60 mg PO HS 08/04/23 04/02/24 History release montelukast 10 mg tablet 10 mg PO HS 08/04/23 04/02/24 History aspirin 81 mg tablet,delayed 81 mg PO DAILY #30 tabs 08/08/23 04/02/24 Rx release blood-glucose meter,continuous #1 ea 09/03/23 04/02/24 Rx (FreeStyle Jayshree 3 Casey) blood-glucose sensor (FreeStyle #4 ea 09/03/23 04/02/24 Rx Jayshree 3 Sensor device) ubrogepant 100 mg tablet (Ubrelvy) 100 mg PO ONCE PRN migraine 09/05/23 04/02/24 Rx headache #10 tabs pen needle, diabetic 32 gauge x #100 ea 09/06/23 04/02/24 Rx 5/32 (Pen Needle) insulin NPH-regular 70-30 U-100 65 unit (0.65 mL) SQ BID 90 days 09/11/23 04/02/24 Rx insulin 100 unit/mL subcutaneous #117 mL pen (Humulin 70/30 U-100 KwikPen) insulin glargine 100 unit/mL (3 15 unit (0.15 mL) SQ BID 30 days 10/17/23 04/02/24 Rx mL) subcutaneous pen (Lantus #9 mL Solostar U-100 Insulin) estradiol 2 mg tablet (Estrace) 8 mg PO DAILY 11/05/23 04/02/24 History pregabalin 150 mg capsule 150 mg PO TID pain 30 days #90 caps 12/12/23 04/02/24 Rx blood sugar diagnostic (OneTouch #100 ea 01/20/24 04/02/24 Rx Ultra Test strips) cholecalciferol (vitamin D3) 50 50 mcg PO DAILY supplement #90 04/02/24 04/02/24 Rx mcg (2,000 unit) capsule (Vitamin caps D3) empagliflozin 25 mg tablet 25 mg PO DAILY 04/03/24 04/03/24 History (Jardiance) escitalopram oxalate 10 mg tablet 10 mg PO DAILY 04/03/24 04/03/24 History ezetimibe 10 mg tablet 10 mg PO DAILY 04/03/24 04/03/24 History losartan 25 mg tablet 25 mg PO DAILY 04/03/24 04/03/24 History metoprolol succinate 50 mg 25 mg (1/2 x 50 mg) PO HS 30 days 04/03/24 04/03/24 Rx tablet,extended release 24 hr #0 tabs oxycodone 5 mg tablet 5 mg PO Q6HP PRN Moderate Pain 04/03/24 Rx (4-6) #11 tabs pantoprazole 40 mg tablet,delayed 40 mg PO DAILY 04/03/24 04/03/24 History release simvastatin 40 mg tablet 40 mg PO HS 04/03/24 04/03/24 History topiramate 100 mg tablet 150 mg PO DAILY 04/03/24 04/03/24 History zaleplon 5 mg capsule 5 mg PO DAILY 04/03/24 04/03/24 History New Prescriptions to Start Prescriptions: oxycodone Chandler Cardoso Allergies Allergy/AdvReac Type Severity Reaction Status Date / Time ranitidine (RANITIDINE) Allergy Severe Anaphylaxis Verified 04/02/24 09:13 vancomycin Allergy Severe Anaphylaxis Verified 04/02/24 09:13 adhesive tape (ADHESIVE TAPE) Allergy Intermediate I-RASH Verified 04/02/24 09:13 bupropion (BUPROPION) Allergy Intermediate I-HIVES Verified 04/02/24 09:13 butorphanol (BUTORPHANOL) Allergy Intermediate I-HIVES Verified 04/02/24 09:13 calcium (From DHEA) Allergy Intermediate I-HIVES Verified 04/02/24 09:13 calcium carbonate (From DHEA) Allergy Intermediate I-HIVES Verified 04/02/24 09:13 codeine (CODEINE) Allergy Intermediate I-HIVES Verified 04/02/24 09:13 hydromorphone (HYDROMORPHONE) Allergy Intermediate I-HIVES Verified 04/02/24 09:13 prasterone (DHEA) (From DHEA) Allergy Intermediate I-HIVES Verified 04/02/24 09:13 sumatriptan (From IMITREX) Allergy Intermediate I-HIVES Verified 04/02/24 09:13 morphine (MORPHINE) Allergy Unknown HEADACHE Verified 04/02/24 09:13 oxycodone (From Percocet) Allergy Hives Verified 04/02/24 09:13 prochlorperazine (From Allergy Unknown Verified 04/02/24 09:13 Compazine) allergy reaction rizatriptan (From Maxalt) Allergy Unknown Verified 04/02/24 09:13 allergy reaction Penicillins AdvReac upset Verified 04/02/24 09:13 stomach Discharge Plan Disposition Patient Disposition: Home Health Service Condition: Fair Discharge Order Discharge Orders: Discharge Order (Routine); Ordered 04/03/24 Ordered By: Chandler Cardoso Follow up Plan Follow up with: Kendall Mccrary DO [Primary Care Provider] - 04/09/24 10:45 am Prescriptions/Medication Reconciliation: New oxycodone 5 mg Tablet 5 mg PO Q6HP PRN (Reason: Moderate Pain (4-6)) Qty: 11 0RF Continued Ubrelvy 100 mg tablet 100 mg PO ONCE PRN (Reason: migraine headache) Qty: 10 11RF Rx Instructions: Take one tablet at onset of symptoms. May repeat in 2 hours if symptoms persist. vitamin N29-[id number] acid 0.5-1 mg tablet 1 tab PO DAILY 90 Days Qty: 90 1RF (DME) blood pressure monitor [Blood Pressure Kit] Kit See Rx Instructions .Route Qty: 1 0RF Rx Instructions: As directed (DME) lancets [OneTouch Delica Plus Lancet] 33 gauge misc See Rx Instructions .ROUTE .COMPLEX Qty: 100 9RF Dose Instruction: DIRECTED Rx Instructions: DIRECTED aspirin 81 mg tablet,delayed release (DR/EC) 81 mg PO DAILY Qty: 30 5RF Humulin 70/30 U-100 KwikPen 100 unit/mL (70-30) insulin pen 65 unit SQ BID 90 Days Qty: 117 4RF insulin glargine [Lantus Solostar U-100 Insulin] 100 unit/mL (3 mL) insulin pen 15 unit SQ BID 30 Days Qty: 9 5RF pregabalin 150 mg capsule 150 mg PO TID 30 Days Qty: 90 5RF cholecalciferol (vitamin D3) [Vitamin D3] 50 mcg (2,000 unit) capsule 50 mcg PO DAILY Qty: 90 3RF (DME) FreeStyle Jayshree 3 Casey Misc See Rx Instructions .Route Qty: 1 2RF Rx Instructions: As directed or bid (DME) FreeStyle Jayshree 3 Sensor Device See Rx Instructions .Route Qty: 4 3RF Rx Instructions: As directed or bid (DME) pen needle, diabetic [Pen Needle] 32 gauge x 5/32 needle See Rx Instructions .ROUTE .COMPLEX Qty: 100 5RF Dose Instruction: USE TO INJECT TWICE DAILY Rx Instructions: USE TO INJECT TWICE DAILY (DME) OneTouch Ultra Test Strip See Rx Instructions .ROUTE .COMPLEX Qty: 100 1RF Dose Instruction: USE TO CHECK BLOOD SUGAR THREE TIMES DAILY Rx Instructions: USE TO CHECK BLOOD SUGAR THREE TIMES DAILY Vitamin C 100 mg Tablet 100 mg PO DAILY montelukast 10 mg tablet 10 mg PO HS duloxetine 60 mg capsule,delayed release(DR/EC) 60 mg PO HS simvastatin 40 mg tablet 40 mg PO HS pantoprazole 40 mg tablet,delayed release (DR/EC) 40 mg PO DAILY zaleplon 5 mg capsule 5 mg PO DAILY topiramate 100 mg tablet 150 mg PO DAILY escitalopram oxalate 10 mg tablet 10 mg PO DAILY ezetimibe 10 mg tablet 10 mg PO DAILY Jardiance 25 mg tablet 25 mg PO DAILY estradiol [Estrace] 2 mg tablet 8 mg PO DAILY Changed metoprolol succinate 50 mg tablet extended release 24 hr 25 mg PO HS 30 Days Qty: 0 0RF Held losartan 25 mg tablet 25 mg PO DAILY Hold Instructions: pending follow-up with PCP Discontinued triamterene-hydrochlorothiazid 37.5-25 mg tablet 1 tab PO DAILY Problem Reconciliation Problems Reviewed?: Yes Patient Discharge Instructions ACTIVITY: Continue current activity DIET: continue same diet Patient Instructions: Acute Kidney Injury, DI for Hypotension Print Language: Czech Providers Primary Care Provider: Kendall Mccrary Admit Provider: Chandler Cardoso Attending Provider: Chandler Cardoso
[2024-04-03 12:00] VITALS: BP 137/71; PULSE 73; PULSE 80; RESP 16; TEMP 36.8; O2SAT 98
[2024-04-03 12:02] LABS: POC Glucose,Bedside 304 (70-110)
[2024-04-03] MEDS: POTASSIUM CHLORIDE 20MEQ TAB 40 MEQ PO (12:33)
--- NOTE | 2024-04-03 12:48 | SW/DCPLANNER ---
Talked to patient today about home health servives and patient stated that she already gets home health through [facility]. Printed and faxed patients paper work to [facility] to resume Home health services. Lissett Nevarez
[2024-04-03 14:24] LABS: Chloride 105 mmol/L (98-107); Potassium 3.5 mmoL/L (3.5-5.1); Sodium 135 mmol/L (136-145)
[2024-04-03 14:27] LABS: Anion Gap 9.5 mEq/L (5-15); Blood Urea Nitrogen 36 mg/dl (7-17); Carbon Dioxide 24 mmol/L (22.0-30.0); Creatinine Clearance Estimated 28 mL/min (50-200); Estimated Glomerular Filt Rate 27 ml/min (>60); GFR (African American) 33 ML/MIN (>60); Glucose 294 mg/dl (74-100)
[2024-04-03 14:28] LABS: Calcium 8.1 mg/dl (8.4-10.2)
[2024-04-03 16:00] VITALS: PULSE 70
[2024-04-03 16:28] LABS: HIV Combo NEGATIVE (Negative)
--- NOTE | 2024-04-07 10:30 | SW/DCPLANNER ---
Called patient x2 and left message with a call back number. Each time no answer. Lissett Nevarez
== END 2024-04-03 17:15 | disposition home health service (06) ==
LOC: ER 11:05 → 2ND 13:45
PROVIDERS: Student in an Organized Health Care Education/Training Program; Admitting Provider Internal Medicine Adolescent Medicine; Emergency Provider Emergency Medicine; PCP Internal Medicine; Visit Provider Internal Medicine Adolescent Medicine
DX: E11.649 Type 2 diabetes mellitus with hypoglycemia without coma (principal); I95.9 Hypotension, unspecified; N17.9 Acute kidney failure, unspecified; R55 Syncope and collapse; M14.671 Charcot's joint, right ankle and foot; N18.30 Chronic kidney disease, stage 3 unspecified; E11.22 Type 2 diabetes mellitus with diabetic chronic kidney disease; I12.9 Hypertensive chronic kidney disease with stage 1 through stage 4 chronic kidney disease, or unspecified chronic kidney disease; E66.01 Morbid (severe) obesity due to excess calories; Z68.41 Body mass index [BMI] 40.0-44.9, adult; Z79.4 Long term (current) use of insulin; Z79.899 Other long term (current) drug therapy; Z87.891 Personal history of nicotine dependence
CPT/HCPCS: 36415; 80048; 80053; 80061; 82533; 82550; 82962; 83036; 83690; 83735; 83880; 84145; 84439; 84443; 84484; 85025; 85378; 85651; 86140; 86803; 87389; 87636; 93005; 97162; 99285; G0378; J1650; J2270; J7030

== ENCOUNTER 2024-04-09 11:40 | Outpatient (CLI) | payer MEDICARE, SELFPAY ==
[2024-04-09 19:41] LABS: Alanine Aminotransferase 13 U/L (12-78); Albumin Level 3.5 g/dl (3.5-5.0); Albumin/Globulin Ratio 1.1 (1.1-1.8); Alkaline Phosphatase 142 U/L (38-126); Anion Gap 10.4 mEq/L (5-15); Aspartate Amino Transferase 24 U/L (14-36); Bilirubin,Total 0.5 mg/dl (0.2-1.3); Blood Urea Nitrogen 32 mg/dl (7-17); Calcium 8.9 mg/dl (8.4-10.2); Carbon Dioxide 28 mmol/L (22.0-30.0); Chloride 102 mmol/L (98-107); Estimated Glomerular Filt Rate 39 ml/min (>60); GFR (African American) 47 ML/MIN (>60); Globulin 3.1 g/dL (1.3-3.2); Glucose 215 mg/dl (74-100); Potassium 4.4 mmoL/L (3.5-5.1); Sodium 136 mmol/L (136-145); Total Protein,Serum 6.6 g/dl (6.3-8.2)
== END 2024-04-09 23:59 | disposition home or self-care (01) ==
LOC: LAB.DROPOF 04-10 10:05
PROVIDERS: PCP Internal Medicine; Visit Provider Internal Medicine
DX: I10 Essential (primary) hypertension (principal)
CPT/HCPCS: 80053

== ENCOUNTER 2024-04-18 19:13 | Emergency (ER) | payer MEDICARE, SELFPAY ==
[2024-04-18 19:55] VITALS: BP 190/82; PULSE 75; RESP 20; TEMP 36.7; O2SAT 97; BMI 38.7
--- NOTE | 2024-04-18 19:55 | PC.NURSE ---
Pt to room in wheelchair External fixator in place on right foot. Skin pink warm and dry Resp full and easy. Slight wheezing noted to posterior auscultation of lung camp. Speech clear and appropriate.
--- NOTE | 2024-04-18 20:03 | ECG_ITS ---
APPROVED REPORT Exam: Resting ECG HR:73 bpm ECG Measurements Heart Rate 73 AXES AR 154 P 20 QRSd 95 QRS -9 QT 384 T 14 QTc 410 Conclusion Sinus rhythm No acute ischemic change Electronically signed by : LALO MARCUM, 04/19/2024 15:04:18
--- NOTE | 2024-04-18 20:06 | PC.NURSE ---
Pt to xray via stretcher
--- NOTE | 2024-04-18 20:07 | XR_ITS ---
PROCEDURE INFORMATION: Exam: XR Chest Exam date and time: 04/18/2024 8:03 PM Age: 58 years old Clinical indication: Shortness of breath; Additional info: SOA TECHNIQUE: Imaging protocol: Radiologic exam of the chest. Views: 1 view. COMPARISON: CT ANGIO CHEST 08/04/2023 5:42 PM FINDINGS: Lungs: Unremarkable. No consolidation. Pleural spaces: Unremarkable. No pleural effusion. No pneumothorax. Heart/Mediastinum: Unremarkable. No cardiomegaly. Bones/joints: Unremarkable. IMPRESSION: No acute findings.
--- NOTE | 2024-04-18 20:11 | ED_ITS ---
Discharge Plan Disposition Patient Disposition: Home, Self-Care Chief Complaint: Upper Respiratory Infection Prescriptions Prescriptions: No Action Ubrelvy 100 mg tablet 100 mg PO ONCE PRN (Reason: migraine headache) Qty: 10 11RF Rx Instructions: Take one tablet at onset of symptoms. May repeat in 2 hours if symptoms persist. vitamin L60-vboef acid 0.5-1 mg tablet 1 tab PO DAILY 90 Days Qty: 90 1RF (DME) blood pressure monitor [Blood Pressure Kit] Kit See Rx Instructions .Route Qty: 1 0RF Rx Instructions: As directed (DME) lancets [OneTouch Delica Plus Lancet] 33 gauge misc See Rx Instructions .ROUTE .COMPLEX Qty: 100 9RF Dose Instruction: DIRECTED Rx Instructions: DIRECTED aspirin 81 mg tablet,delayed release (DR/EC) 81 mg PO DAILY Qty: 30 5RF pregabalin 150 mg capsule 150 mg PO TID 30 Days Qty: 90 5RF cholecalciferol (vitamin D3) [Vitamin D3] 50 mcg (2,000 unit) capsule 50 mcg PO DAILY Qty: 90 3RF amitriptyline 25 mg tablet 25 mg PO DAILY insulin glargine [Lantus Solostar U-100 Insulin] 100 unit/mL (3 mL) insulin pen 40 unit SQ BID Humalog KwikPen Insulin 200 unit/mL (3 mL) insulin pen 30 unit SQ TID oxycodone 5 mg tablet 5 mg PO Q6HP PRN (Reason: Moderate Pain (4-6)) Qty: 11 0RF (DME) FreeStyle Jayshree 3 [place] Misc See Rx Instructions .Route Qty: 1 2RF Rx Instructions: As directed or bid (DME) FreeStyle Jayshree 3 Sensor Device See Rx Instructions .Route Qty: 4 3RF Rx Instructions: As directed or bid (DME) pen needle, diabetic [Pen Needle] 32 gauge x 5/32 needle See Rx Instructions .ROUTE .COMPLEX Qty: 100 5RF Dose Instruction: USE TO INJECT TWICE DAILY Rx Instructions: USE TO INJECT TWICE DAILY (DME) OneTouch Ultra Test Strip See Rx Instructions .ROUTE .COMPLEX Qty: 100 1RF Dose Instruction: USE TO CHECK BLOOD SUGAR THREE TIMES DAILY Rx Instructions: USE TO CHECK BLOOD SUGAR THREE TIMES DAILY mupirocin 2 % ointment 1 applic topical BID 14 Days Qty: 15 1RF Vitamin C 100 mg Tablet 100 mg PO DAILY montelukast 10 mg tablet 10 mg PO HS duloxetine 60 mg capsule,delayed release(DR/EC) 60 mg PO HS simvastatin 40 mg tablet 40 mg PO HS pantoprazole 40 mg tablet,delayed release (DR/EC) 40 mg PO DAILY losartan 25 mg tablet 25 mg PO DAILY zaleplon 5 mg capsule 5 mg PO DAILY topiramate 100 mg tablet 150 mg PO DAILY escitalopram oxalate 10 mg tablet 10 mg PO DAILY ezetimibe 10 mg tablet 10 mg PO DAILY metoprolol succinate 50 mg tablet extended release 24 hr 25 mg PO HS 30 Days Qty: 0 0RF estradiol [Estrace] 2 mg tablet 8 mg PO DAILY Referrals Follow up/Referrals: Kendall Mccrary DO [Primary Care Provider] - See instructions Activity Restrictions/Add. Instructions Additional Instructions/Restrictions: Follow-up with your family doctor within 48 hours to establish care for this visit to the emergency department. Take Tylenol 1000 mg every 6 hours (4 times daily) and ibuprofen 400 mg every 6 hours (4 times daily) as needed with food and water to prevent GI upset and kidney damage. 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 by RN): Tested positive for COVID at home Having shortness of breath History of Present Illness HPI narrative: 58-year-old female presents for complaints of shortness of breath and chest pain. Patient states she has been ill for about 5 days 3 days ago she did a home COVID test that was positive. Home health was was visiting with patient today and informed patient she should go to the ER for evaluation. Related Data Home Medications ?Medication ?Instructions ?Recorded ?Confirmed ascorbic acid (vitamin C) 100 mg 100 mg PO DAILY 08/28/22 04/09/24 tablet (Vitamin C) duloxetine 60 mg capsule,delayed 60 mg PO HS 08/04/23 04/09/24 release montelukast 10 mg tablet 10 mg PO HS 08/04/23 04/09/24 estradiol 2 mg tablet (Estrace) 8 mg PO DAILY 11/05/23 04/09/24 escitalopram oxalate 10 mg tablet 10 mg PO DAILY 04/03/24 04/09/24 ezetimibe 10 mg tablet 10 mg PO DAILY 04/03/24 04/09/24 losartan 25 mg tablet 25 mg PO DAILY 04/03/24 04/09/24 pantoprazole 40 mg tablet,delayed 40 mg PO DAILY 04/03/24 04/09/24 release simvastatin 40 mg tablet 40 mg PO HS 04/03/24 04/09/24 topiramate 100 mg tablet 150 mg PO DAILY 04/03/24 04/09/24 zaleplon 5 mg capsule 5 mg PO DAILY 04/03/24 04/09/24 amitriptyline 25 mg tablet 25 mg PO DAILY 04/09/24 04/09/24 insulin glargine 100 unit/mL (3 40 unit SQ BID 04/09/24 04/09/24 mL) subcutaneous pen (Lantus Solostar U-100 Insulin) insulin lispro 200 unit/mL (3 mL) 30 unit SQ TID 04/09/24 04/09/24 subcutaneous pen (Humalog KwikPen U-200 Insulin) Previous Rx's ?Medication ?Instructions ?Recorded vitamin B12 0.5 mg-folic acid 1 mg 1 tab PO DAILY Supplement 90 days 02/07/23 tablet #90 tabs blood pressure monitor (Blood #1 ea 06/13/23 Pressure Kit) lancets 33 gauge ([facility] 06/27/23 Plus Lancet) aspirin 81 mg tablet,delayed 81 mg PO DAILY #30 tabs 08/08/23 release blood-glucose meter,continuous #1 ea 09/03/23 (FreeStyle Jayshree 3 [place]) blood-glucose sensor (FreeStyle #4 ea 09/03/23 Jayshree 3 Sensor device) ubrogepant 100 mg tablet (Ubrelvy) 100 mg PO ONCE PRN migraine 09/05/23 headache #10 tabs pen needle, diabetic 32 gauge x #100 ea 09/06/23/32 (Pen Needle) pregabalin 150 mg capsule 150 mg PO TID pain 30 days #90 caps 12/12/23 blood sugar diagnostic (OneTouch #100 ea 01/20/24 Ultra Test strips) cholecalciferol (vitamin D3) 50 50 mcg PO DAILY supplement #90 04/02/24 mcg (2,000 unit) capsule (Vitamin caps D3) metoprolol succinate 50 mg 25 mg (1/2 x 50 mg) PO HS 30 days 04/03/24 tablet,extended release 24 hr #0 tabs oxycodone 5 mg tablet 5 mg PO Q6HP PRN Moderate Pain 04/09/24 (4-6) #11 tabs mupirocin 2 % topical ointment 1 applic topical BID infection 14 04/17/24 days #15 grams Allergies Allergy/AdvReac Type Severity Reaction Status Date / Time ranitidine (RANITIDINE) Allergy Severe Anaphylaxis Verified 04/09/24 11:13 vancomycin Allergy Severe Anaphylaxis Verified 04/09/24 11:13 adhesive tape (ADHESIVE TAPE) Allergy Intermediate I-RASH Verified 04/09/24 11:13 bupropion (BUPROPION) Allergy Intermediate I-HIVES Verified 04/09/24 11:13 butorphanol (BUTORPHANOL) Allergy Intermediate I-HIVES Verified 04/09/24 11:13 calcium (From DHEA) Allergy Intermediate I-HIVES Verified 04/09/24 11:13 calcium carbonate (From DHEA) Allergy Intermediate I-HIVES Verified 04/09/24 11:13 codeine (CODEINE) Allergy Intermediate I-HIVES Verified 04/09/24 11:13 hydromorphone (HYDROMORPHONE) Allergy Intermediate I-HIVES Verified 04/09/24 11:13 prasterone (DHEA) (From DHEA) Allergy Intermediate I-HIVES Verified 04/09/24 11:13 sumatriptan (From IMITREX) Allergy Intermediate I-HIVES Verified 04/09/24 11:13 morphine (MORPHINE) Allergy Unknown HEADACHE Verified 04/09/24 11:13 oxycodone (From Percocet) Allergy Hives Verified 04/09/24 11:13 prochlorperazine (From Allergy Unknown Verified 04/09/24 11:13 Compazine) allergy reaction rizatriptan (From Maxalt) Allergy Unknown Verified 04/09/24 11:13 allergy reaction Penicillins AdvReac upset Verified 04/09/24 11:13 stomach PFSH <Eugonda Fryman (UTC), 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 - Last Filed: 04/18/24 21:04> [facility] Disclaimer: The information contained in this section may have been updated after the patient was seen, as this information can be updated by other users. 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) Colon cancer screening Insomnia Post op infection Ena-prosthetic fracture of proximal tibia Complication of external fixation device with internal components Charcot's joint of foot Stage 3 chronic kidney disease Diastolic dysfunction Abnormal findings on diagnostic imaging of heart and coronary circulation Atypical angina delivery delivered Anxiety and depression Asthma HLD (hyperlipidemia) HTN (hypertension) Diabetes Allergic rhinitis Dyspnea on exertion Left foot pain Migraine headache Neuropathy Nonunion of joint fusion Sprain of anterior talofibular ligament of left ankle Tear of peroneal tendon Dizziness Dyspnea Encounter for pre-operative cardiovascular clearance Surgical History , 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) H/O eye surgery S/P cholecystectomy H/O: hysterectomy S/P carpal tunnel release Status post ankle fusion Status post surgical manipulation of ankle joint Family History , 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) Diabetes Coronary artery disease Cancer Hypertension Social History , 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) Smoking Status: Never smoker second hand exposure: No alcohol intake: never substance use type: denies use current occupational status: retired Travel in the last 8 weeks: None household members: spouse housing: house marital status: 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 current occupational exposures/hazards: No caffeine: Yes Have you lived/traveled outside [place] in past 30 days?: No Contact w/someone who lives/traveled outside US past 30 days?: No Exposure to someone with infectious disease in past 14 days?: No Do you have a fever (greater than 100.4 F or 38 C)?: No Have you tested positive for COVID-19: No Exposed to someone with COVID-19 in past 14 days?: No Do you have a sore throat?: No Do you have a cough?: No Do you have any weakness?: Yes Do you have any diarrhea?: Yes Are you experiencing any unusual bleeding?: No Do you have any muscle aches/pain?: Yes Do you have any abdominal pain?: Yes Are you experiencing loss of taste or smell?: No Other Medical History Have you received the Flu Vaccine for this season: No Have you received the Pneumonia Vaccine: No <Nick blanche ([facility]), 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 - Last Filed: 04/18/24 21:04> ROS Obtained: Yes Systems reviewed as appropriate & no additional complaints except as documented Physical Exam <Nick Funes ([facility]), 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 - Last Filed: 04/18/24 21:04> General General appearance: alert and in no apparent distress ENT ENT exam: Present normal exam, normal oropharynx, mucous membranes moist and TM's normal bilaterally Respiratory Respiratory exam: Present normal lung sounds bilaterally Cardiovascular Cardiovascular exam: Present regular rate and normal rhythm Neurological Exam Neurological exam: Present alert and oriented X3 Skin Skin exam: Present warm, intact and other (Postop device on right lower extremity) Medical Decision Making <Nick Funes ([facility]), 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 - Last Filed: 04/18/24 21:04> Medical Records Medical records reviewed: Yes I reviewed the patient's medical records. Screening: Per USPSTF and CDC recommendations, given the prevalence of disease in our region, it is our hospital?s policy to screen for HIV and viral Hepatitis for all patients aged 18 and over and those with ongoing risk factors. Panchito Inquiry Pt receiving controlled substance: No Panchito was queried for this patient: No Vital Signs: 04/18/24 19:55 04/18/24 21:00 04/18/24 21:36 Temperature 98.0 F Temperature Source Oral Pulse Rate 75 Pulse Rate [Right Brachial] 75 Respiratory Rate 20 Blood Pressure 204/80 H 154/63 H Blood Pressure [Right Arm] 190/82 H Blood Pressure Mean 102 93 Blood Pressure Mean [Right Arm] 118 Blood Pressure Source [Right Arm] Automatic Cuff Blood Pressure Position [Right Arm] Sitting 02 Sat by Pulse Oximetry 97 97 Oxygen Delivery Method Room Air Room Air Lab Data Lab results reviewed: Yes I reviewed the patient's lab results. Lab Results 04/18/24 20:06: SARS-CoV-2 (PCR) Detected A, Influenza A Untype (PCR) Not detected, Influenza Type B (PCR) Not detected 04/18/24 20:35: WBC 9.7, RBC 4.25, Hgb 12.7, Hct 39.3, MCV 92.5, MCH 29.9, MCHC 32.3, RDW 14.3, Plt Count 230, MPV 11.0 H, Neut % (Auto) 67.9, Lymph % (Auto) 24.5, [place] % (Auto) 4.4, Eos % (Auto) 2.7, Baso % (Auto) 0.2, Neut # (Auto) 6.6, Lymph # (Auto) 2.4, [place] # (Auto) 0.4, Eos # (Auto) 0.3, Baso # (Auto) 0.0, S odium 133 L, Potassium 3.6, Chloride 103, Carbon Dioxide 24, Anion Gap 9.6, BUN 18 H, Creatinine 1.10 H, Estimated Creat Clear 94, Estimated GFR 51 L, Est GFR ( Amer) 62, Glucose 105 H, Calcium 8.6, Total Bilirubin 0.4, AST 34, ALT 18, Alkaline Phosphatase 151 H, Troponin I < 0.01, NT-Pro-B Natriuret Pep 253 H, Total Protein 7.0, Albumin 3.6, Globulin 3.4 H, Albumin/Globulin Ratio 1.1 04/18/24 20:35 04/18/24 20:35 Orders (Tests/Meds): ORDERS Category Date Time Status Chest XR -- portable [XR chest portable] Stat Exams 04/18/24 20:07 Taken CBC [Complete Blood Count Auto Diff] Stat Lab 04/18/24 20:35 Completed CMP [Comprehensive Metabolic Panel] Stat Lab 04/18/24 20:35 Completed HIV Combo Routine Lab 04/18/24 20:35 Received NT Pro Brain Natriuretic Pep. Stat Lab 04/18/24 20:35 Completed Rapid PCR Covid and Flu A/B Stat Lab 04/18/24 20:06 Completed Trop I [Troponin I] Stat Lab 04/18/24 20:35 Completed Troponin I Q3H Lab 04/18/24 23:00 Ordered Troponin I Q3H Lab 04/19/24 02:00 Ordered EKG Request [ECG Request] Stat Y 04/18/24 19:56 Ordered Medical Decision Narrative: In summary patient is a 58-year-old female who presents to the emergency department for evaluation of shortness of breath chest pain after testing positive for COVID. Patient is hemodynamically stable upon arrival, afebrile. Unremarkable exam. Differential diagnosis includes COVID, flu, bronchitis, pneumonia. Initial workup will be conducted with covid, flu swab, chest x-ray, labs. Initial inventions include p.o. challenge. Initial workup reviewed by me [hematologic labs remarkable for? Imaging remarkable for? Urinalysis remarkable for?]. Upon repeat evaluation [patient had except for resolution of symptoms, had persistent pain for which additional interventions were conducted (describe interventions), tolerated p.o., was ambulatory, etc.]. Given this [patient was appropriate for discharge at this time and will be discharged with a prescription for? This case was discussed with hospital medicine regarding management? They will meet the patient to their service for continued evaluation at this time? Etc.] I informally interpreted patient's chest x-ray or CT and is remarkable for <Kavin Moreno MD - Last Filed: 04/18/24 21:51> Vital Signs: 04/18/24 19:55 04/18/24 21:00 04/18/24 21:36 Temperature 98.0 F Temperature Source Oral Pulse Rate 75 Pulse Rate [Right Brachial] 75 Respiratory Rate 20 Blood Pressure 204/80 H 154/63 H Blood Pressure [Right Arm] 190/82 H Blood Pressure Mean 102 93 Blood Pressure Mean [Right Arm] 118 Blood Pressure Source [Right Arm] Automatic Cuff Blood Pressure Position [Right Arm] Sitting 02 Sat by Pulse Oximetry 97 97 Oxygen Delivery Method Room Air Room Air Lab Data Lab Results 04/18/24 20:06: SARS-CoV-2 (PCR) Detected A, Influenza A Untype (PCR) Not detected, Influenza Type B (PCR) Not detected 04/18/24 20:35: WBC 9.7, RBC 4.25, Hgb 12.7, Hct 39.3, MCV 92.5, MCH 29.9, MCHC 32.3, RDW 14.3, Plt Count 230, MPV 11.0 H, Neut % (Auto) 67.9, Lymph % (Auto) 24.5, [place] % (Auto) 4.4, Eos % (Auto) 2.7, Baso % (Auto) 0.2, Neut # (Auto) 6.6, Lymph # (Auto) 2.4, [place] # (Auto) 0.4, Eos # (Auto) 0.3, Baso # (Auto) 0.0, S odium 133 L, Potassium 3.6, Chloride 103, Carbon Dioxide 24, Anion Gap 9.6, BUN 18 H, Creatinine 1.10 H, Estimated Creat Clear 94, Estimated GFR 51 L, Est GFR ( Amer) 62, Glucose 105 H, Calcium 8.6, Total Bilirubin 0.4, AST 34, ALT 18, Alkaline Phosphatase 151 H, Troponin I < 0.01, NT-Pro-B Natriuret Pep 253 H, Total Protein 7.0, Albumin 3.6, Globulin 3.4 H, Albumin/Globulin Ratio 1.1 Orders (Tests/Meds): ORDERS Category Date Time Status Chest XR -- portable [XR chest portable] Stat Exams 04/18/24 20:07 Taken CBC [Complete Blood Count Auto Diff] Stat Lab 04/18/24 20:35 Completed CMP [Comprehensive Metabolic Panel] Stat Lab 04/18/24 20:35 Completed HIV Combo Routine Lab 04/18/24 20:35 Received NT Pro Brain Natriuretic Pep. Stat Lab 04/18/24 20:35 Completed Rapid PCR Covid and Flu A/B Stat Lab 04/18/24 20:06 Completed Trop I [Troponin I] Stat Lab 04/18/24 20:35 Completed Troponin I Q3H Lab 04/18/24 23:00 Ordered Troponin I Q3H Lab 04/19/24 02:00 Ordered EKG Request [ECG Request] Stat Y 04/18/24 19:56 Ordered Medical Decision Narrative: In summary patient is a 58-year-old female who presents to the emergency department for evaluation of shortness of breath chest pain after testing positive for COVID. Patient is hemodynamically stable upon arrival, afebrile. Unremarkable exam. Differential diagnosis includes COVID, flu, bronchitis, pneumonia. Initial workup will be conducted with covid, flu swab, chest x-ray, labs. Initial inventions include p.o. challenge. Handed off to attending physician. I was consulted by the BETTY, and we discussed the complexity of the problems being addressed. I approved the treatment and management plan for this patient's care in the Emergency Department, thus performing a substantive portion of the medical decision making. I independently interviewed and examined patient. Appears very viral. Lungs with some end expiratory wheezing, but otherwise patient not tachypneic, speaking in full sentences, saturating near 100% on room air. Independent interpretation of workup with nonactionable CBC or chemistry. Troponin negative, BNP nonactionable. Patient COVID-positive. Chest x-ray with viral inflammation, but no acute consolidation on independent interpretation. Because patient at baseline without signs or symptoms of clinical decompensation, deemed appropriate for discharge. Results were relayed to patient who voiced understanding and were agreeable to outpatient management and follow up. I discussed my clinical impression with patient and answered all questions. At this time, the evidence for any other entities in the differential is insufficient to warrant any further testing or ED observation. This was explained as well. Advisory was given that persistent or worsening symptoms require further evaluation. I confirmed the understanding of this discussion. 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
[2024-04-18 20:12] LABS: Influenza A, PCR Not Detected (NotDetected); Influenza B, PCR Not Detected (NotDetected)
[2024-04-18 20:39] LABS: Coronavirus 19, PCR Detected (NotDetected)
[2024-04-18 20:44] LABS: Basophils % 0.2 % (0.1-2.0); Eosinophils # 0.3 K/mm3 (0.0-0.4); Eosinophils % 2.7 % (0.1-12.0); Hematocrit 39.3 % (37.0-47.0); Hemoglobin 12.7 g/dL (12.2-16.2); Lymphocytes # 2.4 K/mm3 (0.7-4.5); Lymphocytes % 24.5 % (10-50); Mean Corpuscular HGB Conc 32.3 g/dL (31.8-35.4); Mean Corpuscular Hemoglobin 29.9 pg (27.0-31.2); Mean Corpuscular Volume 92.5 fl (81-99); Monocytes # 0.4 K/mm3 (0.1-1.0); Monocytes % 4.4 % (1.7-9.3); Neutrophils # 6.6 K/mm3 (1.8-7.8); Neutrophils % 67.9 % (37.0-80.0); Platelet Count 230 K/mm3 (142-424); Red Blood Count 4.25 M/mm3 (4.20-5.40); Red Cell Distribution Width 14.3 % (11.5-17.5); White Blood Count 9.7 K/mm3 (4.8-10.8)
[2024-04-18 21:00] VITALS: BP 204/80; PULSE 75; O2SAT 97
[2024-04-18 21:06] LABS: Albumin Level 3.6 g/dl (3.5-5.0); Chloride 103 mmol/L (98-107); Potassium 3.6 mmoL/L (3.5-5.1); Sodium 133 mmol/L (136-145)
[2024-04-18 21:09] LABS: Alanine Aminotransferase 18 U/L (12-78); Albumin/Globulin Ratio 1.1 (1.1-1.8); Alkaline Phosphatase 151 U/L (38-126); Anion Gap 9.6 mEq/L (5-15); Aspartate Amino Transferase 34 U/L (14-36); Bilirubin,Total 0.4 mg/dl (0.2-1.3); Blood Urea Nitrogen 18 mg/dl (7-17); Carbon Dioxide 24 mmol/L (22.0-30.0); Creatinine Clearance Estimated 94 mL/min (50-200); Estimated Glomerular Filt Rate 51 ml/min (>60); GFR (African American) 62 ML/MIN (>60); Globulin 3.4 g/dL (1.3-3.2)
[2024-04-18 21:10] LABS: Calcium 8.6 mg/dl (8.4-10.2); Glucose 105 mg/dl (74-100)
[2024-04-18 21:21] LABS: NT Pro Brain Natriuretic Pep. 253 pg/mL (0-125)
[2024-04-18 21:24] LABS: Troponin I < 0.01 ng/ml (0.00-0.034)
[2024-04-18 21:36] VITALS: BP 154/63
[2024-04-18 21:49] VITALS: BP 154/63; PULSE 80; RESP 20; TEMP 37.1; O2SAT 96
[2024-04-18 21:51] LABS: HIV Combo NEGATIVE (Negative)
== END 2024-04-18 22:17 | disposition home or self-care (01) ==
PROVIDERS: Nurse Practitioner Family; Emergency Provider Emergency Medicine; PCP Internal Medicine
DX: U07.1 COVID-19 (principal); R06.02 Shortness of breath; R05.9 Cough, unspecified; R07.9 Chest pain, unspecified
CPT/HCPCS: 71045; 80053; 83880; 84484; 85025; 87389; 87636; 93005; 99284

== ENCOUNTER 2024-09-16 21:11 | Emergency (ER) | payer MEDICARE, SELFPAY ==
[2024-09-16 22:07] VITALS: BP 153/63; PULSE 93; RESP 16; TEMP 37.3; O2SAT 98; BMI 41.1
[2024-09-16 22:17] VITALS: BP 154/74; PULSE 89; RESP 20; TEMP 37.3; O2SAT 97; BMI 39.9
--- OUTSIDE RECORDS SUMMARY | 2024-09-16 22:21 | XMS_ITS ---
Author Organization Unknown Plan of Treatment Description Planned Activity Planned Timing - Telephone encounter - Patient Care team information Name Category Status Period Participants - - Proposed period not known -
--- OUTSIDE RECORDS SUMMARY | 2024-09-16 22:21 | XMS_ITS ---
Author Organization Unknown Patient Care team information Name Category Status Period Participants - - Proposed period not known -
[2024-09-16 22:31] VITALS: BP 159/68; PULSE 89; RESP 19; O2SAT 98
--- NOTE | 2024-09-16 22:32 | [facility].EDGENADL ---
Discharge Plan Disposition Patient Disposition: Home, Self-Care Prescriptions Prescriptions: New ondansetron HCl 4 mg tablet 4 mg PO Q8H PRN (Reason: nausea and vomiting) 5 Days Qty: 30 0RF sulfamethoxazole-trimethoprim 800-160 mg tablet 1 tab PO BID 7 Days Qty: 14 0RF ondansetron HCl 4 mg tablet 4 mg PO Q8H PRN (Reason: nausea and vomiting) 5 Days Qty: 30 0RF sulfamethoxazole-trimethoprim 800-160 mg tablet 1 tab PO BID 7 Days Qty: 14 0RF No Action Ubrelvy 100 mg tablet 100 mg PO ONCE PRN (Reason: migraine headache) Qty: 10 11RF Rx Instructions: Take one tablet at onset of symptoms. May repeat in 2 hours if symptoms persist. vitamin V22-kqmic acid 0.5-1 mg tablet 1 tab PO DAILY 90 Days Qty: 90 1RF (DME) blood pressure monitor [Blood Pressure Kit] Kit See Rx Instructions .Route Qty: 1 0RF Rx Instructions: As directed (DME) lancets [OneTouch Delica Plus Lancet] 33 gauge misc See Rx Instructions .ROUTE .COMPLEX Qty: 100 9RF Dose Instruction: DIRECTED Rx Instructions: DIRECTED aspirin 81 mg tablet,delayed release (DR/EC) 81 mg PO DAILY Qty: 30 5RF cholecalciferol (vitamin D3) [Vitamin D3] 50 mcg (2,000 unit) capsule 50 mcg PO DAILY Qty: 90 3RF amitriptyline 25 mg tablet 25 mg PO DAILY Humalog KwikPen Insulin 200 unit/mL (3 mL) insulin pen 30 unit SQ TID oxycodone 5 mg tablet 5 mg PO Q6HP PRN (Reason: Moderate Pain (4-6)) Qty: 11 0RF insulin glargine [Lantus Solostar U-100 Insulin] 100 unit/mL (3 mL) insulin pen 45 unit SQ BID clonazepam [Klonopin] 0.5 mg tablet 0.5 mg PO DAILY PRN (Reason: anxiety) Qty: 12 0RF ondansetron 4 mg tablet,disintegrating 4 mg PO Q8H PRN (Reason: nausea and vomiting) Qty: 30 0RF pregabalin 150 mg capsule 150 mg PO TID 30 Days Qty: 90 2RF (DME) FreeStyle Jayshree 3 Cucumber Misc See Rx Instructions .Route Qty: 1 2RF Rx Instructions: As directed or bid (DME) FreeStyle Jayshree 3 Sensor Device See Rx Instructions .Route Qty: 4 3RF Rx Instructions: As directed or bid (DME) pen needle, diabetic [Pen Needle] 32 gauge x 5/32 needle See Rx Instructions .ROUTE .COMPLEX Qty: 100 5RF Dose Instruction: USE TO INJECT TWICE DAILY Rx Instructions: USE TO INJECT TWICE DAILY (DME) OneTouch Ultra Test Strip See Rx Instructions .ROUTE .COMPLEX Qty: 100 1RF Dose Instruction: USE TO CHECK BLOOD SUGAR THREE TIMES DAILY Rx Instructions: USE TO CHECK BLOOD SUGAR THREE TIMES DAILY mupirocin 2 % ointment 1 applic topical BID 14 Days Qty: 15 1RF ezetimibe 10 mg tablet 10 mg PO DAILY Qty: 90 1RF zaleplon 5 mg capsule 5 mg PO QHS Qty: 30 0RF hydroxyzine HCl 25 mg tablet 25 mg PO Q8H PRN (Reason: itching) Qty: 90 0RF Vitamin C 100 mg Tablet 100 mg PO DAILY montelukast 10 mg tablet 10 mg PO HS duloxetine 60 mg capsule,delayed release(DR/EC) 60 mg PO HS simvastatin 40 mg tablet 40 mg PO HS pantoprazole 40 mg tablet,delayed release (DR/EC) 40 mg PO DAILY losartan 25 mg tablet 25 mg PO DAILY topiramate 100 mg tablet 150 mg PO DAILY escitalopram oxalate 10 mg tablet 10 mg PO DAILY metoprolol succinate 50 mg tablet extended release 24 hr 25 mg PO HS 30 Days Qty: 0 0RF estradiol [Estrace] 2 mg tablet 8 mg PO DAILY Referrals Follow up/Referrals: Provider,Referral, MD [Referring, Medical] - See instructions Activity Restrictions/Add. Instructions Additional Instructions/Restrictions: Please take antibiotics as prescribed for treatment of urinary tract infection. Please return with a stool sample if your diarrhea continues. If you are not getting behind on hydration or if your symptoms continue to worsen, please return to the ER for further assessment as you may require IV antibiotics. Clinical Impressions Clinical Impression: Diarrhea, Hyperglycemia UTI (urinary tract infection) Qualifiers: Urinary tract infection type: acute cystitis Hematuria presence: without hematuria Qualified Code(s): N30.00 - Acute cystitis without hematuria Instructions Patient Instructions: DI for Diarrhea and Traveler's Diarrhea -- Adult, DI for Diarrhea and Traveler's Diarrhea -- Child, DI for Nausea -- Adult, DI for Nausea -- Child Print Language Print Language: [place] Discharge ED Provider: Jose Alfredo Kwong Adult HPI General Chief complaint: Nausea/Vomiting/Diarrhea Stated complaint: Shaking; Chilling; Diahrrea; Vomitting Time Seen by Provider: 09/16/24 22:22 Mode of Arrival: Wheelchair Source of Information: Patient Description of Symptoms (Recalled from ER Triage Doc. by RN): Pt states she has been having diarrhea and fever with weakness generalized since 199 yesterday History of Present Illness HPI narrative: 58-year-old female with history of Charcot foot, diabetes, obesity, hypertension chronic kidney disease presents for fever, generalized weakness, vomiting and diarrhea since since yesterday. She reports that her fever was 101 at home. She had surgery on her right foot for Charcot foot back in July, over a month ago. She denies any worsening symptoms underneath her splint. No blood in the stool or vomit. Patient reports that she has had some dysuria over the last couple of days as well. Related Data Home Medications ?Medication ?Instructions ?Recorded ?Confirmed ascorbic acid (vitamin C) 100 mg 100 mg PO DAILY 08/28/22 09/08/24 tablet (Vitamin C) duloxetine 60 mg capsule,delayed 60 mg PO HS 08/04/23 09/08/24 release montelukast 10 mg tablet 10 mg PO HS 08/04/23 09/08/24 estradiol 2 mg tablet (Estrace) 8 mg PO DAILY 11/05/23 09/08/24 escitalopram oxalate 10 mg tablet 10 mg PO DAILY 04/03/24 09/08/24 losartan 25 mg tablet 25 mg PO DAILY 04/03/24 09/08/24 pantoprazole 40 mg tablet,delayed 40 mg PO DAILY 04/03/24 09/08/24 release simvastatin 40 mg tablet 40 mg PO HS 04/03/24 09/08/24 topiramate 100 mg tablet 150 mg PO DAILY 04/03/24 09/08/24 amitriptyline 25 mg tablet 25 mg PO DAILY 04/09/24 09/08/24 insulin lispro 200 unit/mL (3 mL) 30 unit SQ TID 04/09/24 09/08/24 subcutaneous pen (Humalog KwikPen U-200 Insulin) insulin glargine 100 unit/mL (3 45 unit SQ BID 07/23/24 09/08/24 mL) subcutaneous pen (Lantus Solostar U-100 Insulin) Previous Rx's ?Medication ?Instructions ?Recorded vitamin B12 0.5 mg-folic acid 1 mg 1 tab PO DAILY Supplement 90 days 02/07/23 tablet #90 tabs blood pressure monitor (Blood #1 ea 06/13/23 Pressure Kit) lancets 33 gauge (OneTouch Delica #100 ea 06/27/23 Plus Lancet) aspirin 81 mg tablet,delayed 81 mg PO DAILY #30 tabs 08/08/23 release blood-glucose sensor (FreeStyle #4 ea 09/03/23 Jayshree 3 Sensor device) blood-glucose,machine strap buckler,cont #1 ea 09/03/23 (FreeStyle Jayshree 3 Cucumber) ubrogepant 100 mg tablet (Ubrelvy) 100 mg PO ONCE PRN migraine 09/05/23 headache #10 tabs pen needle, diabetic 32 gauge x #100 ea 09/06/23 (Pen Needle) blood sugar diagnostic (OneTouch #100 ea 01/20/24 Ultra Test strips) cholecalciferol (vitamin D3) 50 50 mcg PO DAILY supplement #90 04/02/24 mcg (2,000 unit) capsule (Vitamin caps D3) metoprolol succinate 50 mg 25 mg (1/2 x 50 mg) PO HS 30 days 04/03/24 tablet,extended release 24 hr #0 tabs oxycodone 5 mg tablet 5 mg PO Q6HP PRN Moderate Pain 04/09/24 (4-6) #11 tabs mupirocin 2 % topical ointment 1 applic topical BID infection 14 04/17/24 days #15 grams ezetimibe 10 mg tablet 10 mg PO DAILY #90 tabs 07/27/24 zaleplon 5 mg capsule 5 mg PO QHS #30 caps 09/02/24 clonazepam 0.5 mg tablet (Klonopin) 0.5 mg PO DAILY PRN anxiety #12 09/08/24 tabs ondansetron 4 mg disintegrating 4 mg PO Q8H PRN nausea and 09/08/24 tablet vomiting #30 tabs pregabalin 150 mg capsule 150 mg PO TID pain 30 days #90 caps 05/20/25 hydroxyzine HCl 25 mg tablet 25 mg PO Q8H PRN itching #90 tabs 09/10/24 ondansetron HCl 4 mg tablet 4 mg PO Q8H PRN nausea and 09/17/24 vomiting 5 days #30 tabs ondansetron HCl 4 mg tablet 4 mg PO Q8H PRN nausea and 09/17/24 vomiting 5 days #30 tabs sulfamethoxazole 800 1 tab PO BID 7 days #14 tabs 09/17/24 mg-trimethoprim 160 mg tablet sulfamethoxazole 800 1 tab PO BID 7 days #14 tabs 09/17/24 mg-trimethoprim 160 mg tablet Allergies Allergy/AdvReac Type Severity Reaction Status Date / Time ranitidine (RANITIDINE) Allergy Severe Anaphylaxis Verified 09/08/24 13:37 vancomycin Allergy Severe Anaphylaxis Verified 09/08/24 13:37 adhesive tape (ADHESIVE TAPE) Allergy Intermediate I-RASH Verified 09/08/24 13:37 bupropion (BUPROPION) Allergy Intermediate I-HIVES Verified 09/08/24 13:37 butorphanol (BUTORPHANOL) Allergy Intermediate I-HIVES Verified 09/08/24 13:37 calcium (From DHEA) Allergy Intermediate I-HIVES Verified 09/08/24 13:37 calcium carbonate (From DHEA) Allergy Intermediate I-HIVES Verified 09/08/24 13:37 codeine (CODEINE) Allergy Intermediate I-HIVES Verified 09/08/24 13:37 hydromorphone (HYDROMORPHONE) Allergy Intermediate I-HIVES Verified 09/08/24 13:37 prasterone (DHEA) (From DHEA) Allergy Intermediate I-HIVES Verified 09/08/24 13:37 sumatriptan (From IMITREX) Allergy Intermediate I-HIVES Verified 09/08/24 13:37 morphine (MORPHINE) Allergy Unknown HEADACHE Verified 09/08/24 13:37 oxycodone (From Percocet) Allergy Hives Verified 09/08/24 13:37 prochlorperazine (From Allergy Unknown Verified 09/08/24 13:37 Compazine) allergy reaction rizatriptan (From Maxalt) Allergy Unknown Verified 09/08/24 13:37 allergy reaction Penicillins AdvReac upset Verified 09/08/24 13:37 stomach PFSH PFSH Disclaimer: The information contained in this section may have been updated after the patient was seen, as this information can be updated by other users. Medical History Normal coronary arteries Admitted for observation Hypotension Hypoglycemia ELINA (acute kidney injury) COVID-19 Colon cancer screening Insomnia Post op infection Ena-prosthetic fracture of proximal tibia Complication of external fixation device with internal components Charcot's joint of foot Stage 3 chronic kidney disease Diastolic dysfunction Abnormal findings on diagnostic imaging of heart and coronary circulation Atypical angina delivery delivered Anxiety and depression Asthma HLD (hyperlipidemia) HTN (hypertension) Diabetes Allergic rhinitis Dyspnea on exertion Left foot pain Migraine headache Neuropathy Nonunion of joint fusion Sprain of anterior talofibular ligament of left ankle Tear of peroneal tendon Dizziness Improved, denies further syncope. Positive tilt table test. BP dropped to 90/30 after 15 minutes with minimal compensatory tachycardia. Amitriptyline, furosemide, spironolactone have been discontinued with symptomatic improvement. She takes furosemide as needed only. 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 current occupational exposures/hazards: No caffeine: Yes Have you lived/traveled outside [place] in past 30 days?: No Contact w/someone who lives/traveled outside [place] past 30 days?: No Exposure to someone with infectious disease in past 14 days?: No Do you have a fever (greater than 100.4 F or 38 C)?: No Have you tested positive for COVID-19?: No Exposed to someone with COVID-19 in past 14 days?: No Do you have a sore throat?: No Do you have a cough?: No Do you have any weakness?: No Do you have any diarrhea?: No Are you experiencing any unusual bleeding?: No Do you have any muscle aches/pain?: No Do you have any abdominal pain?: No Are you experiencing loss of taste or smell?: No Other Medical History Have you received the Flu Vaccine for this season: No Have you received the Pneumonia Vaccine: No ROS Obtained: Yes All systems reviewed & no additional complaints except as documented Physical Exam General General appearance: alert and in no apparent distress Head Head exam: atraumatic and normocephalic Eye Eye exam: Present normal appearance, PERRL and EOMI ENT ENT exam: Present normal oropharynx and normal external ear exam Neck Neck exam: Present normal inspection and full ROM Chest Chest inspection: Present normal inspection and symmetric chest wall rise; Absent tenderness Respiratory Respiratory exam: Present normal lung sounds bilaterally; Absent respiratory distress Cardiovascular Cardiovascular exam: Present regular rate and normal rhythm Abdominal Exam Abdominal exam: Present soft and tenderness (Minimal, generalized); Absent distention or guarding Extremities Exam Extremities exam: Present other (I took down the splint and visualized the surgical site on the right lower extremity, there is no evidence of acute infection at this time.); Absent edema or joint swelling Back Exam Back exam: Present normal inspection; Absent tenderness Neurological Exam Neurological exam: Present alert and oriented X3; Absent motor sensory deficit Psychiatric Psychiatric exam: Present normal affect and normal mood Skin Skin exam: Present warm, dry and normal color Lymphatic Lymphatic Findings: no adenopathy Medical Decision Making Medical Records Medical records reviewed: Yes I reviewed the patient's medical records. Screening: Per USPSTF and CDC recommendations, given the prevalence of disease in our region, it is our hospital?s policy to screen for HIV and viral Hepatitis for all patients aged 18 and over and those with ongoing risk factors. Panchito Inquiry Pt receiving controlled substance: No Panchito was queried for this patient: No Vital Signs: 09/16/24 22:07 09/16/24 22:17 09/16/24 22:31 Temperature 99.1 F 99.1 F Temperature Source Oral Oral Pulse Rate 89 Pulse Rate [Right Brachial] 93 H 89 Respiratory Rate 16 20 19 Blood Pressure 159/68 H Blood Pressure [Right Arm] 153/63 H 154/74 H Blood Pressure Mean 107 Blood Pressure Mean [Right Arm] 93 100 Blood Pressure Source [Right Arm] Automatic Cuff Automatic Cuff Blood Pressure Position [Right Arm] Sitting Sitting 02 Sat by Pulse Oximetry 98 97 98 Oxygen Delivery Method Room Air Room Air 09/16/24 23:45 09/17/24 00:01 09/17/24 00:30 Temperature Temperature Source Pulse Rate 87 86 85 Pulse Rate [Right Brachial] Respiratory Rate 16 18 15 Blood Pressure 145/65 H 137/55 L 134/62 Blood Pressure [Right Arm] Blood Pressure Mean 91 82 74 Blood Pressure Mean [Right Arm] Blood Pressure Source [Right Arm] Blood Pressure Position [Right Arm] 02 Sat by Pulse Oximetry 97 94 L 96 Oxygen Delivery Method 09/17/24 01:00 Temperature Temperature Source Pulse Rate 82 Pulse Rate [Right Brachial] Respiratory Rate 16 Blood Pressure 128/61 Blood Pressure [Right Arm] Blood Pressure Mean 83 Blood Pressure Mean [Right Arm] Blood Pressure Source [Right Arm] Blood Pressure Position [Right Arm] 02 Sat by Pulse Oximetry 94 L Oxygen Delivery Method Lab Data Lab results reviewed: Yes I reviewed the patient's lab results. Lab Results 09/16/24 23:00: WBC 6.9, RBC 4.03 L, Hgb 12.1 L, Hct 37.0, MCV 91.8, MCH 30.0, MCHC 32.7, RDW 13.8, Plt Count 186, MPV 11.5 H, Neut % (Auto) 61.2, Lymph % (Auto) 29.8, [place] % (Auto) 6.7, Eos % (Auto) 1.6, Baso % (Auto) 0.3, Neut # (Auto) 4.2, Lymph # (Auto) 2.1, [place] # (Auto) 0.5, Eos # (Auto) 0.1, Baso # (Auto) 0.0, VBG pH 7.37, VBG pCO2 36.0, VBG pO2 82.5 H, VBG HCO3 20.3 L, VBG Total CO2 21.4 L, VBG O2 Saturation 95.7 H, VBG Base Excess -5.0 L, VBG Lactic Acid 2.1 H, Sodium 129 L, Potassium 3.4 L, Chloride 97 L, Carbon Dioxide 25, Anion Gap 10.4, BUN 22 H, Creatinine 1.20 H, Estimated Creat Clear 89, Estimated GFR 46 L, Est GFR ( Amer) 56 L, Glucose 413 H*, Calcium 8.1 L, Magnesium 1.7, Total Bilirubin 0.6, AST 25, ALT 15, Alkaline Phosphatase 179 H, Total Protein 6.5, Albumin 3.4 L, Globulin 3.1, Albumin/Globulin Ratio 1.1, Lipase 73, Urine Color Yellow, Urine Appearance Cloudy, Urine pH 6.0, Ur Specific [place] 1.020, Urine Protein 1+ A, Urine Glucose (UA) 3+, Urine Ketones 1+, Urine Blood Trace-i, Urine Nitrate Positive A, Urine Bilirubin Negative, Urine Urobilinogen 0.2, Ur Leukocyte Esterase Negative, Urine RBC 3-5, Urine WBC Tntc, Ur Squamous Epith Cells 20-50, Urine Bacteria 4+ 09/16/24 23:00 09/16/24 23:00 Orders (Tests/Meds): ED MEDICATIONS Generic Name Dose Route Start Last Admin Trade Name Freq PRN Reason Stop Dose Admin Sodium Chloride 10 ml 09/16/24 23:40 09/16/24 23:41 Sodium Chloride 0.9% 10ml Syr (Rad Only) IV 10/16/24 23:39 10 ml NEEDED PRN Administration Maintain IV Site Discontinued Medications Generic Name Dose Route Start Last Admin Trade Name Freq PRN Reason Stop Dose Admin Acetaminophen 1,000 mg 09/16/24 22:33 09/16/24 22:47 Acetaminophen 500mg Tab PO 09/16/24 22:34 1,000 mg ONCE ONE Administration Lactated Ringer's 1,000 mls @ 999 mls/hr 09/16/24 22:45 09/16/24 22:46 Lactated Ringer's 1000 Ml Bag IV 09/16/24 23:45 999 mls/hr .Q1H1M DESTINY Administration Ceftriaxone Sodium 2 gm/ 100 mls @ 200 mls/hr 09/17/24 00:03 09/17/24 00:17 Sodium Chloride IV 09/17/24 00:32 200 mls/hr ONCE ONE Administration Iopamidol 75 ml 09/16/24 23:40 09/16/24 23:41 Iopamidol-370 (76%);100ml Bottle IV 09/16/24 23:41 75 ml ONCE ONE Administration Ondansetron HCl 4 mg 09/16/24 22:33 09/16/24 22:47 Ondansetron 4mg/2ml Vial IV 09/16/24 22:34 4 mg ONCE ONE Administration ORDERS Category Date Time Status CT abdomen pelvis w con Stat Cat Scan 09/16/24 22:33 Completed CBC w/Auto Diff [Complete Blood Count Auto Diff] Stat Lab 09/16/24 23:00 Completed CMP [Comprehensive Metabolic Panel] Stat Lab 09/16/24 23:00 Completed Diarrhea 23 Panel, PCR Stat Lab 09/16/24 22:33 Ordered Lipase Stat Lab 09/16/24 23:00 Completed Magnesium Stat Lab 09/16/24 23:00 Completed UA [Urinalysis and Microscopic] Stat Lab 09/16/24 23:00 Completed Blood Culture Stat Micro 09/16/24 22:45 Received Urine Culture Stat Micro 09/16/24 23:00 Received VBG [Venous Blood Gas] Stat RT 09/16/24 23:00 Completed Medical Decision Narrative: 58-year-old female with history of Charcot foot, diabetes, chronic kidney disease presents with fever at home, nausea vomiting and diarrhea since yesterday. History was obtained via interactive discussion with patient, chart review, family. On arrival, patient is [afebrile, hemodynamically stable, satting appropriately, alert, oriented x4, GCS 15], moving all extremities spontaneously. Full physical exam performed and significant for no signs of infection underneath the right lower extremity splint. Mild generalized abdominal tenderness. Differential includes but is not limited to gastroenteritis, bacterial colitis, diverticulitis, dehydration, electrolyte derangement, UTI, DKA. Patient was given a liter fluid bolus and IV Zofran for symptomatic management and correction of underlying abnormalities. Workup initiated including CBC CMP blood cultures urine lactate, stool culture, VBG CT abdomen pelvis without contrast. On re-evaluation, patient [remains afebrile, HD stable.] Laboratory workup independently interpreted by me and significant for urine with innumerable WBCs consistent with UTI. Labs show mild electrolyte derangements with mild hyponatremia, 129 compared to 133 most recently mild hypokalemia renal function at baseline, hyperglycemia noted with sugar 400. Mild hypocalcemia noted.. Imaging independently interpreted by me and significant for fluid-filled loops of small bowel consistent with diarrheal state. No evidence of diverticulitis or other intra-abdominal pathology.. See radiology read for full review of final results. Interactive discussion was had with patient regarding her presentation. Despite multiple attempts she was unable to provide us with a stool sample. Presentation is most consistent with urinary tract infection and mild dehydration secondary to diarrhea. I offered/considered admission for IV antibiotics but given patient has normal vital signs and is no longer having active diarrhea I think she is appropriate for discharge with outpatient management. She was given 2 g of IV ceftriaxone for coverage of complicated UTI and discharged with prescription for Bactrim. She was encouraged to bring back a stool sample if her diarrhea continues to assess for bacterial etiologies of diarrhea. Strict return precautions given. Procedures Risk/Benefits of Procedure(s) Were Explained: Yes Critical Care Critical Care Time Critical Care Time: No
--- NOTE | 2024-09-16 22:33 | CT_ITS ---
PROCEDURE INFORMATION: Exam: CT Abdomen And Pelvis With Contrast Exam date and time: 09/16/2024 11:34 PM Age: 58 years old Clinical indication: Abdominal pain; Additional info: Fever, abd pain, n/v TECHNIQUE: Imaging protocol: Computed tomography of the abdomen and pelvis with contrast. Radiation optimization: All CT scans at this facility use at least one of these dose optimization techniques: automated exposure control; mA and/or kV adjustment per patient size (includes targeted exams where dose is matched to clinical indication); or iterative reconstruction. Contrast material: ISOVUE; Contrast volume: 75 ml; Contrast route: IV; COMPARISON: CR XR HIP RT 2-3V W/PELVIS 01/15/2021 2:44 PM FINDINGS: Liver: Too small to characterize hypodensities in the liver Gallbladder and biliary ducts: Cholecystectomy Pancreas: No ductal dilation. No peripancreatic inflammatory changes. Spleen: Unremarkable. Adrenal glands: No mass. Kidneys and ureters: Bilateral perinephric stranding, probably senescent changes. Nonobstructing nephrolithiasis. Stomach and bowel: Moderate amount of stool in the colon. Several mildly distended fluid-filled loops of small bowel , possibly mild nonspecific enteritis or ileus. Appendix: No evidence of appendicitis. Intraperitoneal space: No evidence of pneumoperitoneum. Vasculature: Vascular plaque in the aorta and its branches. Lymph nodes: Prominent in size and number retroperitoneal lymph nodes. Urinary bladder: Thickening of the urinary bladder wall, nonspecific, cystitis is possible. Reproductive: Hysterectomy Bones/joints: No suspicious osseous lesion. No acute fracture. Soft tissues: Smallfat containing umbilical hernia. IMPRESSION: 1. Several mildly distended fluid-filled loops of small bowel , possibly mild nonspecific enteritis or ileus. 2. Thickening of the urinary bladder wall, nonspecific, cystitis is possible. Correlate with UA.
--- NOTE | 2024-09-16 22:43 | PC.NURSE ---
Blood glucose level was 432 22:35.
[2024-09-16] MEDS: LACTATED RINGERS 1000ML 1,000 ML 999 ML IV (22:46)
[2024-09-16] MEDS: ONDANSETRON 4MG/2ML VIAL 4 MG IV (22:47)
[2024-09-16] MEDS: ACETAMINOPHEN 500MG TAB 1000 MG PO (22:47)
--- NOTE | 2024-09-16 23:01 | PC.NURSE ---
Pt assisted to restroom via wheelchair
[2024-09-16 23:11] LABS: VBG HCO3 20.3 mmol/L (23-30); VBG Oxygen Saturation 95.7 % (50-70); VBG PH 7.37 mmol/L (7.31-7.41); VBG PO2 82.5 mmol/L (28-40); VBG Total CO2 21.4 mmol/L (23-27)
[2024-09-16 23:12] LABS: Basophils % 0.3 % (0.1-2.0); Eosinophils # 0.1 Kmm3 (0.0-0.4); Eosinophils % 1.6 % (0.1-12.0); Hemoglobin 12.1 g/dL (12.2-16.2); Immature Granulocytes # 0.03 10^3uL; Immature Granulocytes % 0.4 %; Lymphocytes # 2.1 K/mm3 (0.7-4.5); Lymphocytes % 29.8 % (10-50); Mean Corpuscular HGB Conc 32.7 g/dL (31.8-35.4); Mean Corpuscular Volume 91.8 fl (81-99); Mean Platelet Volume 11.5 fl (7.4-10.4); Monocytes # 0.5 K/mm3 (0.1-1.0); Monocytes % 6.7 % (1.7-9.3); Neutrophils # 4.2 K/mm3 (1.8-7.8); Neutrophils % 61.2 % (37.0-80.0); Nucleated Red Blood Cells # 0 10^3/uL; Nucleated Red Blood Cells % 0 %; Platelet Count 186 K/mm3 (142-424); Red Blood Count 4.03 M/mm3 (4.20-5.40); Red Cell Distribution Width 13.8 % (11.5-17.5); Red Cell Distribution Width-SD 46.4 fL; White Blood Count 6.9 K/mm3 (4.8-10.8)
[2024-09-16 23:13] LABS: Lactate Venous 2.1 mmol/L (0.4-2.0)
[2024-09-16 23:19] LABS: Alanine Aminotransferase 15 U/L (12-78); Albumin Level 3.4 g/dl (3.5-5.0); Albumin/Globulin Ratio 1.1 (1.1-1.8); Alkaline Phosphatase 179 U/L (38-126); Anion Gap 10.4 mEq/L (5-15); Aspartate Amino Transferase 25 U/L (14-36); Bilirubin,Total 0.6 mg/dl (0.2-1.3); Blood Urea Nitrogen 22 mg/dl (7-17); Calcium 8.1 mg/dl (8.4-10.2); Carbon Dioxide 25 mmol/L (22.0-30.0); Chloride 97 mmol/L (98-107); Creatinine Clearance Estimated 89 mL/min (50-200); Estimated Glomerular Filt Rate 46 ml/min (>60); GFR (African American) 56 ML/MIN (>60); Globulin 3.1 g/dL (1.3-3.2); Lipase 73 U/L (23-300); Magnesium 1.7 mg/dl (1.6-2.3); Microscopic, Urine URINE MICROSCOPIC (MICROSCOPIC); Potassium 3.4 mmoL/L (3.5-5.1); Sodium 129 mmol/L (136-145); Total Protein,Serum 6.5 g/dl (6.3-8.2)
[2024-09-16 23:21] LABS: Bilirubin,Urine Negative (Negative); Blood, Urine TRACE-I (Negative); Color,Urine YELLOW (Yellow); Glucose 413 mg/dl (74-100); Glucose,Urine (UA) 3+ (Negative); Ketones,Urine 1+ (Negative); Leukocyte Esterase,Urine Negative (Negative); Nitrate,Urine POSITIVE (Negative); Protein,Urine 1+ (Negative); Urobilinogen,Urine 0.2 EU/dl (0.2)
[2024-09-16 23:22] LABS: Appearance,Urine Cloudy (Clear)
--- NOTE | 2024-09-16 23:29 | PC.NURSE ---
Pt to CT scan via wheelchair
[2024-09-16] MEDS: IOPAMIDOL-370 (76%);100ML BOTTLE 75 ML IV (23:41)
[2024-09-16] MEDS: SODIUM CHLORIDE 0.9% 10ML SYR (RAD ONLY) 10 ML IV (23:41)
[2024-09-16 23:45] VITALS: BP 145/65; PULSE 87; RESP 16; O2SAT 97
[2024-09-16 23:52] LABS: Bacteria,Urine 4+ /lpf; Squamous Epithelial Cell,Urine 20-50 #/hpf (0-5); WBC,Urine TNTC #/hpf (0-3)
[2024-09-17 00:01] VITALS: BP 137/55; PULSE 86; RESP 18; O2SAT 94
[2024-09-17] MEDS: CEFTRIAXONE SODIUM 2 GM in 0.9 % SODIUM CHLORIDE 100 ML IV (00:17)
[2024-09-17 00:30] VITALS: BP 134/62; PULSE 85; RESP 15; O2SAT 96
[2024-09-17 01:00] VITALS: BP 128/61; PULSE 82; RESP 16; O2SAT 94
[2024-09-17 01:26] VITALS: BP 128/61; PULSE 82; RESP 16; TEMP 37.2; O2SAT 97
--- NOTE | 2024-09-20 16:41 | PC.NURSE ---
I discussed pt's urine cultures results with Dr Phelan. Pt is on appropriate ABX, ntd
== END 2024-09-17 01:27 | disposition home or self-care (01) ==
PROVIDERS: Emergency Provider Emergency Medicine; PCP Nurse Practitioner Family
DX: N30.00 Acute cystitis without hematuria (principal); E11.65 Type 2 diabetes mellitus with hyperglycemia; R11.2 Nausea with vomiting, unspecified; R19.7 Diarrhea, unspecified; E87.1 Hypo-osmolality and hyponatremia
CPT/HCPCS: 74177; 80053; 81001; 82803; 83690; 83735; 85025; 87040; 87086; 87088; 87186; 96361; 96365; 96375; 99285; J0696; J2405; J7120; Q9967

== ENCOUNTER 2025-02-07 17:33 | Emergency (ER) | payer MEDICARE, SELFPAY ==
--- OUTSIDE RECORDS SUMMARY | 2024-12-24 13:20 | XMS_ITS | Encounter Summary ---
Author Organization Healthcare Address [address] [place] [address] Care Team Providers Care Truck Crane Operator Name Role Phone Juan F Julio C Zarco APRN Primary Care Provider [phone] Reason for Visit * Reason Comments Follow-up Encounter Details Date Type Department Care Team (Late st Contact Info) Description 12/24/2024 1:20 PM EDT [facility] [address], [address] [place] [address] Anant John MD [address] [place] [address] Status post ankle fusion (Primary Dx) Social History Tobacco Use Types Packs/Day Years Used Date Smoking Tobacco: Former Cigarettes 0.5 15 Smokeless Tobacco: Never Alcohol Use Standard Drinks/Week Comments Not Currently 0 (1 standard drink = 0.6 oz pur e alcohol) Humiliation, Afraid, Rape, and Kick questionnair e Answer Date Recorded Within the last year, have y ou been afraid of your partner or ex-partner? No 02/04/2024 Within the last year, have y ou been humiliated or emotionally abused in other ways by your partner or ex-partner? No Within the last year, have y ou been kicked, hit, slapped, or otherwise physically hurt by your partner or ex-partner? No 02/04/2024 Within the last year, have y ou been raped or forced to have any kind of sexual activity by your partner or ex-partner? No 02/04/2024 Social Connection and Isolation Panel Answer Date Recorded Frequency of Communication with Friends and Fami ly Not on file 02/04/2024 Frequency of Social Gatherings with Friends and Family Not on file 02/04/2024 Attends Buddhism Services Not on file 02/03 Active Member of Clubs or Organizations Not on f ile 02/04/2024 Attends Club or Organization Meetings Not on theodore e 02/04/2024 Are you , , di vorced, , never , or living with a partner? 02/04/2024 AUDIT-C Answer Date Recorded Q1: How often do you have a drink containing alcohol? Never 02/04/2024 Q2: How many drinks containi ng alcohol do you have on a typical day when you are drinking? Patient does not drink Q3: How often do you have si x or more drinks on one occasion? Never 02/04/2024 PHQ-2 Answer Date Recorded Patient Health Questionnaire-2 Score 0 11/04/2024 Hunger Vital Sign Answer Date Recorded Within the past 12 months, y ou worried that your food would run out before you got the money to buy more. Never true 02/04/20 24 Within the past 12 months, t he food you bought just didn't last and you didn't have money to get more. Never true 02/04/2024 PRAPARE - Transportation Answer Date Re corded In the past 12 months, has l ack of transportation kept you from medical appointments or from getting medications? No 01/20 In the past 12 months, has l ack of transportation kept you from meetings, work, or from getting things needed for daily living? No 02/04/2024 Housing Stability Vital Sign Answer Kirk e Recorded In the last 12 months, was t here a time when you were not able to pay the mortgage or rent on time? No 02/04/2024 Number of Places Lived in the Last Year Not on f ile 02/04/2024 In the last 12 months, was t here a time when you did not have a steady place to sleep or slept in a [facility] (including now)? No 02/04/2024 PHQ-9 Answer Date Recorded Patient Health Questionnaire-9 Score 0 08/20/2024 AUDIT-C Answer Date Recorded Q1: How often do you have a drink containing alc ohol? Monthly or less 11/04/2024 Q2: How many drinks containi ng alcohol do you have on a typical day when you are drinking? 1 or 2 11/04/2024 Q3: How often do you have si x or more drinks on one occasion? Never 11/04/2024 CAGE ASSESSMENT Answer Date Recorded Cage unable to access Not on file 10/26/2022 Cage max number of drinks Not on file 2022 Cage Beverages a week Not on file 10/26/2022 Have you ever felt you should CUT down on your d rinking? 0 10/26/2022 Have you been ANNOYED by people criticizing your drinking? 0 10/26/2022 Have you felt GUILTY about your drinking? 0 10/26/2022 Have you had a drink first t shirin in the morning (EYE-RETAIL WIRELESS SALES REPRESENTATIVE) to steady your nerves or to get rid of a hangover? 0 10/26/2022 CAGE Questionnaire Score 0 023 Utilities Answer Date Recorded In the past 12 months has th e electric, gas, oil, or water company threatened to shut off services in your home? No 02/04/2024 PHQ-2A Answer Date Recorded Patient Health Questionnaire-2 Score 0 01/24/2023 Comments No Sex and Gender Information Value Date Recorded Sex Assigned at Female 01/14/2024 10:28 AM EDT Legal Sex Female 8:26 PM EDT Gender Identity Female 01/14/2024 10:28 AM EDT Sexual Orientation Not on file documented as of this encounter Last Filed Vital Signs Vital Sign Reading Time Taken Comments Blood Pressure 139/74 12/24/2024 2:16 PM EDT Pulse 71 12/24/2024 2:16 PM EDT Temperature 36.7 C (98.1 F) 12/24/2024 2:16 PM EDT Respiratory Rate - - Oxygen Saturation 93% 12/24/2024 2:16 PM EDT Inhaled Oxygen Concentration - - Weight 113 kg (250 lb) 12/24/2024 2:16 PM EDT Height 165.1 cm (5' 5 ) 12/24/2024 2:16 PM EDT Body Mass Index 41.6 12/24/2024 2:16 PM EDT documented in this encounter Miscellaneous Notes * Progress Notes - Anant John MD - 12/24/2024 1:20 PM EDT CC: RLE Removal of TSF, placement of antibiotic TTC nail and calcium sulfate on 08/26/[address] John HPI: Ms. Guallpa is back now 4 months from her procedure. She is doing quite well. She is very happywith the progression in the appearance of the leg. She has no pain only occasional achiness. No issues with drainage or wounds. Examination: She has 2+ DP PT pulses Her edema has decreased All her incisions are healed X-rays: Three views of the right ankle today demonstrate consolidation of the fusion as reviewed byme. 3.5cm LLD, L>R Assessment and plan: 58-year-old female with status post right limb salvage with TTC nail. She is doing quite well after her reconstruction and grafting. We will plan for her to discontinue her boot and get a limb length correction via a shoe lift. She is very happy she is walking around without her boot she is satisfied with the overall progress. We will see her back in 6 months for repeat evalua tion with x-rays of the ankle only. documented in this encounter Plan of Treatment Upcoming Encounters Date Type Department Care Team (Late st Contact Info) Description 02/19/2025 12:40 PM EDT Office Visit [facility] [address] [place] [phone] Cornelia Mendez, MILK DRYING MACHINE OPERATOR [address] [place] [phone] 06/24/2025 10:30 AM EST Office Visit [facility]opa[facility] Surgery [facility] Medicine [address], [address] [place] [id number] Anant John MD [address] [place] [address] documented as of this encounter Results * XR Hip-Ankle Left Joint Survey (12/24/2024 3:04 PM EDT) Anatomical Region Laterality Modality Lower Extremities Left Digital Radiog erika Impressions 12/24/2024 3:23 PM EDT 1. Unchanged findings of right tibiotalar calcaneal fusion and healed fracture of the distal tibial diaphysis. The right lower extremity is approximately 2 cm shorter than the left lower extremity. 2. Incompletely evaluated findings of left ankle and foot fusion CRITICAL RESULT: No. COMMUNICATION: Per this written report. Drafted by Micheal Rodriguez MD on 12/24/2024 3:16 PM Final report signed by Micheal Rodriguez MD on 12/24/2024 3:23 PM Narrative 12/24/2024 3:23 PM EDT CLINICAL INDICATION: pain TECHNIQUE: XR HIP-ANKLE LEFT JOINT SURVEY, XR ANKLE RIGHT 3+ VIEWS, XR HIP-ANKLE RIGHT JOINT SURVEY COMPARISON: November 02, 2024. FINDINGS: 3 views of the right ankle and 2 views of the right lower extremity from hip to ankle. Unchanged findings of tibiotalar calcaneal fusion. Healed fracture of the distal tibial diaphysis. Unchanged findings of resection of the distal fibula. Hip and knee joint space and alignment are normal. The right lower extremity is approximately 2 cm shorter than the left lower extremity. Standing AP view of the left lower extremity from hip to ankle shows plate and screw arthrodesis of the left ankle and incompletely evaluated screw fixation of the midfoot and hindfoot. Healed fracture of the proximal left fibular diaphysis. Hip and knee joint space and alignment are normal. Procedure Note Micheal Rodriguez MD - 12/24/2024 CLINICAL INDICATION: pain TECHNIQUE: XR HIP-ANKLE LEFT JOINT SURVEY, XR ANKLE RIGHT 3+ VIEWS, XR HIP-ANKLERIGHT JOINT SURVEY COMPARISON: November 02, 2024. FINDINGS: 3 views of the right ankle and 2 views of the right lower extremity fromhip to ankle. Unchanged findings of tibiotalar calcaneal fusion. Healedfracture of the distal tibial diaphysis. Unchanged findings of resectionof the distal fibula. Hip and knee joint space and alignment are normal.The right lower extremity is approximately 2 cm shorter than the leftlower extremity. Standing AP view of the left lower extremity from hip to ankle shows plateand screw arthrodesis of the left ankle and incompletely evaluated screwfixation of the midfoot and hindfoot. Healed fracture of the proximal leftfibular diaphysis. Hip and knee joint space and alignment are normal. IMPRESSION: 1.Unchanged findings of right tibiotalar calcaneal fusion and healedfracture of the distal tibial diaphysis. The right lower extremity isapproximately 2 cm shorter than the left lower extremity. 2.Incompletely evaluated findings of left ankle and foot fusion CRITICAL RESULT: No. COMMUNICATION: Per this written report. Drafted by Micheal Rodriguez MD on 12/24/2024 3:16 PM Final report signed by Micheal Rodriguez MD on 12/24/2024 3:23 PM us Christa Lockhart MILK DRYING MACHINE OPERATOR IMG XR PROCEDURES Final Re sult * XR Hip-Ankle Right Joint Survey (12/24/2024 3:04 PM EDT) Anatomical Region Laterality Modality Lower Extremities Right Digital Radiog erika Impressions 12/24/2024 3:23 PM EDT 1. Unchanged findings of right tibiotalar calcaneal fusion and healed fracture of the distal tibial diaphysis. The right lower extremity is approximately 2 cm shorter than the left lower extremity. 2. Incompletely evaluated findings of left ankle and foot fusion CRITICAL RESULT: No. COMMUNICATION: Per this written report. Drafted by Micheal Rodriguez MD on 12/24/2024 3:16 PM Final report signed by Micheal Rodriguez MD on 12/24/2024 3:23 PM Narrative 12/24/2024 3:23 PM EDT CLINICAL INDICATION: pain TECHNIQUE: XR HIP-ANKLE LEFT JOINT SURVEY, XR ANKLE RIGHT 3+ VIEWS, XR HIP-ANKLE RIGHT JOINT SURVEY COMPARISON: November 02, 2024. FINDINGS: 3 views of the right ankle and 2 views of the right lower extremity from hip to ankle. Unchanged findings of tibiotalar calcaneal fusion. Healed fracture of the distal tibial diaphysis. Unchanged findings of resection of the distal fibula. Hip and knee joint space and alignment are normal. The right lower extremity is approximately 2 cm shorter than the left lower extremity. Standing AP view of the left lower extremity from hip to ankle shows plate and screw arthrodesis of the left ankle and incompletely evaluated screw fixation of the midfoot and hindfoot. Healed fracture of the proximal left fibular diaphysis. Hip and knee joint space and alignment are normal. Procedure Note Micheal Rodriguez MD - 12/24/2024 CLINICAL INDICATION: pain TECHNIQUE: XR HIP-ANKLE LEFT JOINT SURVEY, XR ANKLE RIGHT 3+ VIEWS, XR HIP-ANKLERIGHT JOINT SURVEY COMPARISON: November 02, 2024. FINDINGS: 3 views of the right ankle and 2 views of the right lower extremity fromhip to ankle. Unchanged findings of tibiotalar calcaneal fusion. Healedfracture of the distal tibial diaphysis. Unchanged findings of resectionof the distal fibula. Hip and knee joint space and alignment are normal.The right lower extremity is approximately 2 cm shorter than the leftlower extremity. Standing AP view of the left lower extremity from hip to ankle shows plateand screw arthrodesis of the left ankle and incompletely evaluated screwfixation of the midfoot and hindfoot. Healed fracture of the proximal leftfibular diaphysis. Hip and knee joint space and alignment are normal. IMPRESSION: 1.Unchanged findings of right tibiotalar calcaneal fusion and healedfracture of the distal tibial diaphysis. The right lower extremity isapproximately 2 cm shorter than the left lower extremity. 2.Incompletely evaluated findings of left ankle and foot fusion CRITICAL RESULT: No. COMMUNICATION: Per this written report. Drafted by Micheal Rodriguez MD on 12/24/2024 3:16 PM Final report signed by Micheal Rodriguez MD on 12/24/2024 3:23 PM us Christa Lockhart MILK DRYING MACHINE OPERATOR IMG XR PROCEDURES Final Re sult * XR Ankle Right 3+ Views (12/24/2024 2:02 PM EDT) Anatomical Region Laterality Modality Lower Extremities, Ankle Right Digital Radiography Impressions 12/24/2024 3:23 PM EDT 1. Unchanged findings of right tibiotalar calcaneal fusion and healed fracture of the distal tibial diaphysis. The right lower extremity is approximately 2 cm shorter than the left lower extremity. 2. Incompletely evaluated findings of left ankle and foot fusion CRITICAL RESULT: No. COMMUNICATION: Per this written report. Drafted by Micheal Rodriguez MD on 12/24/2024 3:16 PM Final report signed by Mciheal Rodriguez MD on 12/24/2024 3:23 PM Narrative 12/24/2024 3:23 PM EDT CLINICAL INDICATION: pain TECHNIQUE: XR HIP-ANKLE LEFT JOINT SURVEY, XR ANKLE RIGHT 3+ VIEWS, XR HIP-ANKLE RIGHT JOINT SURVEY COMPARISON: November 02, 2024. FINDINGS: 3 views of the right ankle and 2 views of the right lower extremity from hip to ankle. Unchanged findings of tibiotalar calcaneal fusion. Healed fracture of the distal tibial diaphysis. Unchanged findings of resection of the distal fibula. Hip and knee joint space and alignment are normal. The right lower extremity is approximately 2 cm shorter than the left lower extremity. Standing AP view of the left lower extremity from hip to ankle shows plate and screw arthrodesis of the left ankle and incompletely evaluated screw fixation of the midfoot and hindfoot. Healed fracture of the proximal left fibular diaphysis. Hip and knee joint space and alignment are normal. Procedure Note Micheal Rodriguez MD - 12/24/2024 CLINICAL INDICATION: pain TECHNIQUE: XR HIP-ANKLE LEFT JOINT SURVEY, XR ANKLE RIGHT 3+ VIEWS, XR HIP-ANKLERIGHT JOINT SURVEY COMPARISON: November 02, 2024. FINDINGS: 3 views of the right ankle and 2 views of the right lower extremity fromhip to ankle. Unchanged findings of tibiotalar calcaneal fusion. Healedfracture of the distal tibial diaphysis. Unchanged findings of resectionof the distal fibula. Hip and knee joint space and alignment are normal.The right lower extremity is approximately 2 cm shorter than the leftlower extremity. Standing AP view of the left lower extremity from hip to ankle shows plateand screw arthrodesis of the left ankle and incompletely evaluated screwfixation of the midfoot and hindfoot. Healed fracture of the proximal leftfibular diaphysis. Hip and knee joint space and alignment are normal. IMPRESSION: 1.Unchanged findings of right tibiotalar calcaneal fusion and healedfracture of the distal tibial diaphysis. The right lower extremity isapproximately 2 cm shorter than the left lower extremity. 2.Incompletely evaluated findings of left ankle and foot fusion CRITICAL RESULT: No. COMMUNICATION: Per this written report. 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
--- OUTSIDE RECORDS SUMMARY | 2024-12-24 13:24 | XMS_ITS | Encounter Summary ---
Author Organization Healthcare Address [address] [place] [address] Care Team Providers Care Agricultural Engineering Teacher Name Role Phone Julio C Rogel APRN Primary Care Provider Encounter Details Date Type Department Care Team (Latest Contact Info) Description 12/24/2024 1:24 PM EDT - 12/24/2024 2:31 PM EDT [facility] [address], [address] [place] [address] Status post ankle fusion Discharge Disposition: Home or Self Care Social History Tobacco Use Types Packs/Day Years [...] and Family Not on file 02/04/2024 Attends [employer] Services Not on file 02/03 Active Member [...] place to sleep or slept in a senior living (including now)? No 02/04/2024 PHQ-9 Answer Date [...] drink first t shirin in the morning (EYE-CLINICAL INFORMATICS EDUCATOR) to steady your nerves or to get rid of a hangover? 0 10/26/2022 CAGE Questionnaire Score 0 023 Utilities Answer Date Recorded In the past 12 months has [employer], [employer], oil, or water [employer] threatened to shut off services in your home? No 02/04/2024 PHQ-2A Answer Date Recorded Patient Health Questionnaire-2 Score 0 01/24/2023 Comments No Sex and Gender Information Value Date Recorded Sex Assigned at Female 01/14/2024 10:28 AM EDT Legal Sex Female 8:26 PM EDT Gender Identity Female 01/14/2024 10:28 AM EDT Sexual Orientation Not on file documented as of this encounter Medications at Time of Discharge acetaminophen (Tylenol) 500 MG tablet Take 2 tablets by mouth every 6 hours. 100 tablet 5 albuterol 108 (90 Base) MCG/ACT inhaler Inhale 2 puffs every 4 (four) hours if needed for wheezing or shortness of breath. 1 each 3 ascorbic acid (Vitamin C) 500 MG tablet Take 1 tablet by mouth daily. aspirin 81 MG EC tablet Take 1 tablet by mouth daily. B Complex Vitamins (B COMPLEX PO) Take 1 tablet by mouth 1 (one) time each day. cholecalciferol (Vitamin D-3) 25 MCG (1000 UT) tablet Take 1 tablet by mouth daily. clonazePAM (KlonoPIN) 0.5 MG tablet take 1 tablet by mouth once daily as needed for anxiety 5 Cobalamin Combinations (Vitamin H88-Qtyqz Acid) 500-400 MCG tablet Take 1 tablet by mouth in the morning. 3 Continuous Glucose Sensor (FreeStyle Jayshree 3 Plus Sensor) misc Change every 15 days 2 each 5 5 DULoxetine (Cymbalta) [address] capsule Take 1 capsule by mouth nightly. Do not crush or chew. escitalopram (Lexapro) 10 MG tablet Take 1 tablet by mouth daily. 4 ezetimibe (Zetia) 10 MG tablet Take 1 tablet by mouth daily. 4 fluticasone (Flonase) 50 MCG/ACT nasal spray Administer 1 spray into each nostril as needed for allergies. 3 glucagon (Baqsimi Two Pack) 3 MG/DOSE powder Nasal PowderIndications:T ype 2 diabetes mellitus with other specified complication, with long-term current use of insulin Administer 3 mg into a single nostril for hypoglycemia; if no response, may repeat in 15 minutes using a new intranasal device 1 each 3 4 hydrOXYzine HCl (Atarax) 25 MG tablet Take 1 tablet by mouth nightly. 4 insulin lispro (HumaLOG KWIKPEN) 100 UNIT/ML injection penIndications:Type 2 diabetes mellitus with other specified complication, with long-term current use of insulin Inject 15-30u with meals plus correction. MDD 100u 120 mL 3 5 Lantus SoloStar 100 UNIT/ML injection penIndications:Type 2 diabetes mellitus with other specified complication, with long-term current use of insulin Inject 45 Units under the skin in the morning and 45 Units before bedtime. 90 mL 3 5 07/11/19 26 losartan (Cozaar) 50 MG tablet Take 1 tablet by mouth daily. 4 Magnesium Citrate 100 MG tablet Take 100 mg by mouth in the morning. methocarbamol (Robaxin) 750 MG tablet Take 1 tablet by mouth every 6 hours as needed for muscle spasms. 50 tablet 5 metoprolol succinate XL (Toprol-XL) 50 MG 24 hr tablet Take 1.5 tablets by mouth nightly. Do not crush or chew. mupirocin (Bactroban) 2 % ointment Apply 1 Application topically 2 times a day. Apply to each nostril twice daily for 5 days before surgery. 15 g 5 naloxone (Narcan) 4 mg/0.1 mL nasal spray 1. Give 1 spray in nostril for no/slow breathing or cannot wake after opioid use 2. Call 911 3. Repeat in other nostril if symptoms continue 1 each 5 Nutritional Supplements (Christophe) pack Take 1 Dose pack by mouth 2 times a day. 30 each 5 ondansetron ODT (Zofran-ODT) 4 MG disintegrating tablet DISSOLVE 1 TABLET IN MOUTH EVERY 8 HOURS NEEDED FOR NAUSEA AND VOMITING 5 oxyCODONE (Roxicodone) 5 MG immediate release tablet Take 1 tablet by mouth every 6 hours as needed for moderate pain. 20 tablet 5 pantoprazole (Protonix) 40 MG EC tablet Take 1 tablet by mouth nightly. Do not crush, chew, or split. pen needle, diabetic 31G X 5 MM misc Use as directed with insulin pen. 100 each 11 5 pen needle, diabetic 31G X 5 MM misc Use as directed with insulin pen. 100 each 5 pregabalin (Lyrica) 150 MG capsule Take 1 capsule by mouth 3 times a day. Rimegepant Sulfate (Nurtec) 75 MG tablet dispersible Dissolve 1 tablet on the tongue daily as needed (for headache). Max of 75 mg in a 24 hour period . senna-docusate (Ena-Colace) 8.6-50 MG tablet Take 1 tablet by mouth 2 times a day. 28 tablet 5 sertraline (Zoloft) 50 MG tablet Take 1 tablet by mouth daily. simvastatin (Zocor) 40 MG tablet Take 1 tablet by mouth nightly. sulfamethoxazole-tr imethoprim (Bactrim DS) 800-160 MG tablet Take 1 tablet by mouth 2 times a day. Bladder infection/uti 09/23/24 5 tirzepatide (Mounjaro) 2.5 MG/0.5ML solution auto-injector solution pen-injectorIndicat ions:Type 2 Diabetes Mellitus Inject 0.5 mL under the skin 1 time per week. 2 mL 5 5 topiramate (Topamax) 100 MG tablet Take 1 tablet by mouth nightly. traMADol (Ultram) 50 MG tablet Take 1 tablet by mouth every 8 hours as needed for severe pain (pain unresponsive to non-opioids). 25 tablet 5 triamterene-hydroch lorothiazide (Maxzide-25) 37.5-25 MG tablet Take 1 tablet by mouth daily. 4 zaleplon (Sonata) 5 MG capsule Take 1 capsule by mouth at night as needed. 4 documented as of this encounter Plan of Treatment Upcoming Encounters Date Type Department Care Team (Late st Contact Info) Description 02/19/2025 12:40 PM EDT Office Visit [facility] Endocrinology [address] [place] [phone] Cornelia Mendez, GRAPHIC COORDINATOR [address] [facility] [address] [place] [address] 06/24/2025 10:30 AM EST Office Visit [facility] Orthopaedic Surgery [facility] Sports Medicine [address] [place] [address] Anant John MD [address] [facility] [address] [place] [address] documented as of this encounter Procedures Procedure Name Priority Date/Time Associated Diagnosis Comments XR HIP-ANKLE RIGHT JOINT SURVEY STAT 12/24/2024 3:04 PM EDT Status post ankle fusion XR ANKLE RIGHT 3+ VIEWS Routine 12/24/2024 2:02 PM EDT Status post ankle fusion documented in this encounter Results * XR Hip-Ankle Right Joint Survey (12/24/2024 [...] MD on 12/24/2024 3:23 PM us Christa Gill Lockhart GRAPHIC COORDINATOR IMG XR PROCEDURES Final Re sult * [...] encounter Visit Diagnoses Diagnosis Status post ankle fusion Other postprocedural status [...] documented as of this encounter Care Teams Agricultural Engineering Teacher Relationship Specialty Start Date End Date Julio C Rogel APRN [address] [place] [address] JENNY Keen [address] PCP - General 09/17/24 documented as of this encounter
--- OUTSIDE RECORDS SUMMARY | 2024-12-24 14:32 | XMS_ITS | Encounter Summary ---
Author Organization Healthcare Address [address] [place] [address] Care Team Providers Care Critical Care Nurse Practitioner Name Role Phone Julio C Rogel APRN Primary Care Provider Encounter Details Date Type Department Care Team (Latest Contact Info) Description 12/24/2024 2:32 PM EDT - 12/24/2024 11:59 PM EDT [facility] [address] [place] [address] Status post ankle fusion Discharge [...] and Family Not on file 02/04/2024 Attends [employer] Services Not on file 02/03 Active Member [...] place to sleep or slept in a care home (including now)? 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 0 10/26/2022 CAGE Questionnaire Score 0 023 Utilities Answer Date Recorded In the past 12 months has [employer], [employer], oil, or water [employer] threatened to shut off services in [...] mouth every 6 hours. 100 tablet 5 ascorbic acid (Vitamin C) 500 MG tablet [...] needed for anxiety 5 Cobalamin Combinations (Vitamin U40-Amivg Acid) 500-400 MCG tablet Take 1 tablet [...] directed with insulin pen. 100 each 5 pen needle, diabetic 31G X 5 MM misc Use as directed with insulin pen. 100 each 11 5 pregabalin (Lyrica) 150 MG capsule Take [...] Description 02/19/2025 12:40 PM EDT Office Visit [facility] Endocrinology [address] [place] [id number] Cornelia Mendez, HOT K[employer] T[employer]ER [address] [place] [address] 06/24/2025 10:30 AM EST Office Visit [facility] Orthopaedic Surgery & Sports Medicine [address] [place] [address] Anant John MD [address] [place] [address] documented as of this encounter Procedures Procedure Name Priority Date/Time Associated Diagnosis Comments XR HIP-ANKLE RIGHT JOINT SURVEY STAT 12/24/2024 3:04 PM EDT Status post ankle fusion XR HIP-ANKLE LEFT JOINT SURVEY STAT 12/24/2024 3:04 PM EDT Status post ankle fusion documented [...] on 12/24/2024 3:23 PM us Christa Lockhart H[employer] K[employer] T[employer]ER IMG XR PROCEDURES Final Re sult * XR Hip-Ankle Left Joint Survey (12/24/2024 [...] on 12/24/2024 3:23 PM us Christa Lockhart H[employer] K[employer] T[employer]ER IMG XR PROCEDURES Final Re sult * [...] Time PHQ-9 Depression Total Score: 0 08/21/19 10:06 AM EDT A fall risk assessment has been complete d for the patient 12/24/2024 2:16 PM EDT A Body Mass Index follow-up plan has been documented for the patient 12/24/2024 3:27 PM EDT documented as of this encounter Care Teams Critical Care Nurse Practitioner Relationship Specialty Start Date End Date Julio C Rogel APRN [address] [place] [address] PCP - General 09/17/24 documented as of this encounter
[2025-02-07 17:44] VITALS: BP 133/56; PULSE 90; RESP 18; TEMP 36.8; O2SAT 99; BMI 39.9
[2025-02-07 18:01] VITALS: BP 161/80; PULSE 82; O2SAT 98
--- NOTE | 2025-02-07 18:02 | ECG_ITS ---
APPROVED REPORT Exam: Resting ECG HR:81 bpm ECG Measurements Heart Rate 81 AXES KS 163 P 47 QRSd 90 QRS -31 QT 386 T 38 QTc 423 Conclusion SINUS RHYTHM LEFT AXIS DEVIATION [QRS AXIS < -30] POSSIBLE ANTERIOR MYOCARDIAL INFARCTION , PROBABLY OLD [30 ms Q WAVE IN V3/V4, OR R < 0.2 mV IN V4] ABNORMAL ECG UNCONFIRMED REPORT Electronically signed by : DENIZ HASTIGNS, 02/09/2025 02:51:40
--- OUTSIDE RECORDS SUMMARY | 2025-02-07 18:07 | XMS_ITS | Clinical Summary ---
Author Organization [facility] Address [address] [place] [address] Care Team Providers Care Method Consultant Name Role Phone Julio C Rogel APRN Primary Care Provider Allergies Active Allergy Reactions Criticality Noted Date Comments Bupropion Hives,Itching Medium 04/13/2016 Butorphanol Hives,Itching Medium 04/13/2016 Hydromorphone Hives,Itching Medium 12/21/2021 Prochlorperazine Hives,Itching Medium 04/13/2016 Ranitidine Anaphylaxis,Rash High 04/13/2016 UNSPECIFIED DURING SURGERY Rizatriptan Hives,Itching Medium 04/13/2016 Sumatriptan Hives,Itching Medium 04/13/2016 Vancomycin Shortness of breath,Nausea,Other - please document in the comment field High 01/15/2024 Syncope and collapse Wound Dressing Adhesive Rash Low 04/13/2016 Glue on any kind of tapes Medications pantoprazole (Protonix) 40 MG EC tablet Take 1 tablet by mouth nightly. Do not crush, chew, or split. Active topiramate (Topamax) 100 MG tablet Take 1 tablet by mouth nightly. Active DULoxetine (Cymbalta) [address] capsule Take 1 capsule by mouth nightly. Do not crush or chew. Active metoprolol succinate XL (Toprol-XL) 50 MG 24 hr tablet Take 1.5 tablets by mouth nightly. Do not crush or chew. Active pregabalin (Lyrica) 150 MG capsule Take 1 capsule by mouth 3 times a day. Active cholecalciferol (Vitamin D-3) 25 MCG (1000 UT) tablet Take 1 tablet by mouth daily. Active simvastatin (Zocor) 40 MG tablet Take 1 tablet by mouth nightly. Active Rimegepant Sulfate (Nurtec) 75 MG tablet dispersible Dissolve 1 tablet on the tongue daily as needed (for headache). Max of 75 mg in a 24 hour period . Active albuterol 108 (90 Base) MCG/ACT inhaler Inhale 2 puffs every 4 (four) hours if needed for wheezing or shortness of breath. 1 each 11 10/31/19 23 Active fluticasone (Flonase) 50 MCG/ACT nasal spray Administer 1 spray into each nostril as needed for allergies. 08/24/19 23 Active B Complex Vitamins (B COMPLEX PO) Take 1 tablet by mouth 1 (one) time each day. Active Cobalamin Combinations (Vitamin R47-Neetb Acid) 500-400 MCG tablet Take 1 tablet by mouth in the morning. 08/29/19 23 Active losartan (Cozaar) 50 MG tablet Take 1 tablet by mouth daily. 06/13/19 24 Active escitalopram (Lexapro) 10 MG tablet Take 1 tablet by mouth daily. 12/10/19 24 Active ezetimibe (Zetia) 10 MG tablet Take 1 tablet by mouth daily. 12/10/19 24 Active hydrOXYzine HCl (Atarax) 25 MG tablet Take 1 tablet by mouth nightly. 11/25/19 24 Active aspirin 81 MG EC tablet Take 1 tablet by mouth daily. Active triamterene-hydroc hlorothiazide (Maxzide-25) 37.5-25 MG tablet Take 1 tablet by mouth daily. 01/15/20 24 Active ascorbic acid (Vitamin C) 500 MG tablet Take 1 tablet by mouth daily. Active Magnesium Citrate 100 MG tablet Take 100 mg by mouth in the morning. Active glucagon (Baqsimi Two Pack) 3 MG/DOSE powder Nasal PowderIndications: Type 2 diabetes mellitus with other specified complication, with long-term current use of insulin Administer 3 mg into a single nostril for hypoglycemia; if no response, may repeat in 15 minutes using a new intranasal device 1 each 3 04/06/20 24 Active zaleplon (Sonata) 5 MG capsule Take 1 capsule by mouth at night as needed. 04/02/20 24 Active Lantus SoloStar 100 UNIT/ML injection penIndications:Typ e 2 diabetes mellitus with other specified complication, with long-term current use of insulin Inject 45 Units under the skin in the morning and 45 Units before bedtime. 90 mL 3 07/11/19 25 026 Active mupirocin (Bactroban) 2 % ointment Apply 1 Application topically 2 times a day. Apply to each nostril twice daily for 5 days before surgery. 15 g 08/21/19 25 Active acetaminophen (Tylenol) 500 MG tablet Take 2 tablets by mouth every 6 hours. 100 tablet 08/28/19 25 Active methocarbamol (Robaxin) 750 MG tablet Take 1 tablet by mouth every 6 hours as needed for muscle spasms. 50 tablet 08/28/19 25 Active oxyCODONE (Roxicodone) 5 MG immediate release tablet Take 1 tablet by mouth every 6 hours as needed for moderate pain. 20 tablet 08/28/19 25 Active naloxone (Narcan) 4 mg/0.1 mL nasal spray 1. Give 1 spray in nostril for no/slow breathing or cannot wake after opioid use 2. Call 911 3. Repeat in other nostril if symptoms continue 1 each 08/28/19 25 Active senna-docusate (Ena-Colace) 8.6-50 MG tablet Take 1 tablet by mouth 2 times a day. 28 tablet 08/28/19 25 Active Nutritional Supplements (Christophe) pack Take 1 Dose pack by mouth 2 times a day. 30 each 08/28/19 25 Active traMADol (Ultram) 50 MG tablet Take 1 tablet by mouth every 8 hours as needed for severe pain (pain unresponsive to non-opioids). 25 tablet 08/28/19 25 Active pen needle, diabetic 31G X 5 MM misc Use as directed with insulin pen. 100 each 11 08/28/19 25 Active pen needle, diabetic 31G X 5 MM misc Use as directed with insulin pen. 100 each 11 08/28/19 25 Active sulfamethoxazole-t rimethoprim (Bactrim DS) 800-160 MG tablet Take 1 tablet by mouth 2 times a day. Bladder infection/uti 09/23/24 09/18/19 25 Active Continuous Glucose Sensor (FreeStyle Jayshree 3 Plus Sensor) misc Change every 15 days 2 each 5 09/23/19 25 Active clonazePAM (KlonoPIN) 0.5 MG tablet take 1 tablet by mouth once daily as needed for anxiety 09/10/19 25 Active ondansetron ODT (Zofran-ODT) 4 MG disintegrating tablet DISSOLVE 1 TABLET IN MOUTH EVERY 8 HOURS NEEDED FOR NAUSEA AND VOMITING 09/09/19 25 Active sertraline (Zoloft) 50 MG tablet Take 1 tablet by mouth daily. Active tirzepatide (Mounjaro) 2.5 MG/0.5ML solution auto-injector solution pen-injectorIndica tions:Type 2 Diabetes Mellitus Inject 0.5 mL under the skin 1 time per week. 2 mL 5 11/07/19 Active insulin lispro (HumaLOG KWIKPEN) 100 UNIT/ML injection penIndications:Typ e 2 diabetes mellitus with other specified complication, with long-term current use of insulin Inject 15-30u with meals plus correction. MDD 100u 120 mL 3 11/07/19 25 Active Active Problems Problem Noted Date Diagnosed Date Hypertriglyceridemia 11/06/2024 Infection at site of external fixator pin 2024 Neuropathy 04/12/2024 Retinopathy 04/12/2024 Nonunion after arthrodesis 01/31/2024 Morbid obesity 01/14/2024 Failed orthopedic implant 07/18/2023 Stage 3a chronic kidney disease 06/27/2023 DONELL (obstructive sleep apnea) 10/26/2022 HTN (hypertension) 10/26/2022 Dyspnea on exertion 10/26/2022 Diabetes mellitus, type 2 10/26/2022 Gastroesophageal reflux disease 10/26/2022 Obesity (BMI 30-39.9) 10/26/2022 Liver disease 10/26/2022 History of psychiatric treatment 10/26/2022 Asthma 10/26/2022 Infected orthopedic implant 10/25/2022 Anxiety 12/28/2021 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 Benign paroxysmal vertigo, bilateral 12/28/2021 Charcot's joint, left ankle and foot 12/28/2021 Depression 12/28/2021 Generalized anxiety disorder 12/28/2021 Migraine headache 12/28/2021 Seasonal allergic rhinitis 12/28/2021 Vitamin D deficiency 12/28/2021 Abnormal gait 03/21/2017 Disorder of peripheral nervous system 03/21/2017 Leg pain 03/21/2017 Paresthesia 03/21/2017 Resolved Problems Problem Noted Date Diagnosed Date Resolved Date PONV (postoperative nausea and vomiting) 08/25/2024 01/10/2025 Encounters Date Type Department Care Team Description 01/19/2025 Telephone [facility] Min[facility] Metabolism [address] [facility], [address] [place] [address] Celina Russell CNA 01/14/2025 Travel 01/05/2025 Orders Only [facility] Endocrinology [address] [place] [address] Cornelia Mendez APRN Type 2 diabetes mellitus with other specified complication, with long-term current use of insulin ([facility]) (Primary Dx) 01/04/2025 Telephone [facility] Endocrinology [address] [place] [address] Cornelia Mendez APRN Prior-authorization/ insurance Verification 12/24/2024 2:32 PM EDT - 12/24/2024 11:59 PM EDT Hospital Encounter [facility] Radiology [address], [address] [place] [phone] Status post ankle fusion Discharge Disposition: Home or Self Care 12/24/2024 1:24 PM EDT - 12/24/2024 2:31 PM EDT Hospital Encounter [facility] Radiology [address] [place] [phone] Status post ankle fusion Discharge Disposition: Home or Self Care 12/24/2024 1:20 PM EDT Office Visit [facility] Orthopaedic Surgery & Sports Medicine [address] [place] [address] Anant John MD Status post ankle fusion (Primary Dx) 12/24/2024 Travel from Last 3 Months Immunizations Immunization Administration Dates Next Due Hep B, adult 10/17/2007,05/01/2007,04/01/2007 Influenza, injectable, quadr ivalent, preservative free 02/07/2023,02/28/2022,02/09/2021 Influenza, seasonal, injectable 03/10/2020,02/20,01/10/2018 Influenza, seasonal, injecta ble, preservative free 04/02/2024 Pneumococcal Polysaccharide PPV23 02/28/2022 Tdap 02/04/2018 Family History Medical History Relation Name Comments Cancer Father Kenneth hernandez Cancer Father's Brother Wan hernandez Diabetes Father's Sister Stacy hernandez Cancer Maternal Grandfather Raul duran Osteoporosis Maternal Grandmother Karly duran Cancer Mother Alis garzon Diabetes Mother Alis garzon Cancer Paternal Grandfather Haroldo hernandez Heart disease Paternal Grandfather Haroldo hernandez Diabetes Sister Monet gonzales Anesthesia problems Neg Hx Malig Hyperthermia Neg Hx Relation Name Status Comments Father Kenneth hernandez Father's Brother Wan hernandez Father's Sister Stacy hernandez Maternal Grandfather Raul duran Maternal Grandmother Karlyaman garzon Mother Alis garzon Paternal Grandfather Haroldo hernandez Sister Monet gonzales Social History Tobacco Use Types Packs/Day Years Used Date Smoking Tobacco: Former Cigarettes 0.5 15 Smokeless Tobacco: Never Tobacco Cessation:Counseling Given: Not Answered Alcohol Use Standard Drinks/Week Comments Not Currently [...] and Family Not on file 02/04/2024 Attends [employer] Not on file 02/03 Active Member [...] place to sleep or slept in a retirement (including now)? No 02/04/2024 PHQ-9 Answer Date [...] drink first t shirin in the morning (E[employer]CATHODE [employer]) to steady your nerves or to get rid of a hangover? 0 10/26/2022 CAGE Questionnaire Score 0 023 Utilities Answer Date Recorded In the past 12 months has PayPal, gas, oil, or water [employer] threatened to shut off services in your home? No 02/04/2024 PHQ-2A Answer Date Recorded Patient Health Questionnaire-2 Score 0 01/24/2023 Comments No Sex and Gender Information Value Date Recorded Sex Assigned at Female 01/14/2024 10:28 AM EDT Legal Sex Female 8:26 PM EDT Gender Identity Female 01/14/2024 10:28 AM EDT Sexual Orientation Not on file Last Filed Vital Signs Vital Sign Reading Time Taken Comments Blood Pressure 139/74 12/24/2024 2:16 PM EDT Pulse 71 12/24/2024 2:16 PM EDT Temperature 36.7 C (98.1 F) 12/24/2024 2:16 PM EDT Respiratory Rate 16 08/27/2024 11:14 AM EDT Oxygen Saturation 93% 12/24/2024 2:16 PM EDT Inhaled Oxygen Concentration - - Weight 113 kg (250 lb) 12/24/2024 2:16 PM EDT Height 165.1 cm (5' 5 ) 12/24/2024 2:16 PM EDT Body Mass Index 41.6 12/24/2024 2:16 PM EDT Plan of Treatment Upcoming Encounters Date Type Department Care Team (Late st Contact Info) Description 02/19/2025 12:40 PM EDT Office Visit [facility] Endocrinology [address] [place] [address] Cornelia Mendez, REMARKETING MANAGER [address] [place] [address] 06/24/2025 10:30 AM EST Office Visit [facility] Orthopaedic Surgery & Sports Medicine [address] [place] [address] Anant John MD [address] [place] [address] Health Maintenance Due Date Last Done Comments [facility]-Medicare Annual Wellness (AWV) 1965 [facility]-Infant/Child/Adol SDOH Screenings 1966 Diabetes: Dental Exam 1976 [facility]-Hepatitis A Vaccines (1 of 2 - Risk 2-dose series) 1985 CT Colonography 12/18/2011 Colonoscopy 12/18/2011 FIT-DNA 12/18/2011 FIT 12/18/2011 FOBT 12/18/2011 Sigmoidoscopy 12/18/2011 [facility]-Colorectal Cancer Screening 12/18/2011 [facility]-Zoster Vaccines (1 of 2) 2016 [id number]-54 Vaccine (2 - Candace risk series) 07/27/2020 06/29/2020 [facility]-Breast Cancer Screening 06/22/2021 03/0 06/2019, 06/23/2019, 07/09/2017 [facility]-Pneumococcal Vaccine: 50+ Years (2 of 2 - PCV) 02/28/2023 02/28/2022 [facility]- SDOH Screenings 08/04/2024 [facility]-Adult SDOH Screenings 08/04/2024 02/04/2024 [facility]-Influenza Vaccine (#1) 12/21/202404/02, 02/07/2023, 02/28/2022, Additional history exists [facility]-Diabetes: Hemoglobin A1C 12/31/202403/2025, 09/10/2024, 07/30/2024, Additional history exists [facility]-Depression Screening 11/04/2025 11/04/2024, 05/0 04/2024 [facility]-DTaP,Tdap,and Td Vaccines (2 - Td or Tdap) 02/05/2028 02/04/2018 [facility]-Hepatitis B Vaccines Completed 008, 05/01/2007, 04/01/2007 [facility]-HIV Screening Completed 03/04/2024, 10/25/2022 [facility]-Hepatitis C Screening Completed 03/04/2024, 09/2022 [facility]-Obesity Intervention Completed 025, 11/06/2024, 11/02/2024, Additional history exists HPV Vaccines Aged Out No longer eligi ble based on patient's age to complete this topic [facility]-HIB Vaccines Aged Out No longer e ligible based on patient's age to complete this topic [facility]-IPV Vaccines Aged Out No longer e ligible based on patient's age to complete this topic [facility]-Rotavirus Vaccines Aged Out No lo nger eligible based on patient's age to complete this topic Medical Devices Implanted Type Area Fish Cutter Device Identifier Shelf Expiration Date Model / Serial / Lot Jesup Guide - S. - [id number] Implanted:Qty: 1 on 10/26/2022 by Anant John MD at [facility] Jesup Right: Ankle [employer]obbins [employer] Nephew [employer] Inc-[id number] 10/27/2023 [id number] / . / Cement Palacos W/Gent - [id number] Implanted:Qty: 1 on 10/26/2022 by Anant John MD at [facility] Cement Right: Ankle Heraeus Inc-[id number] 01/19/2026 [id number] / / [id number] Ring Static Strut Connection Jesup - [id number] - [id number] Implanted:Qty: 2 on 06/29/2024 by Anant John MD at [facility] Implant Right: Tibia [employer] ([employer])-[id number] 68 06/28/2025 4933-1-702 / 4933-1-702 / Cube Salvation 4 Hole 5mm - Sna - [id number] Implanted:Qty: 1 on 06/29/2024 by Anant John MD at [facility] Implant Right: Leg IgnitionOne-140 187 06/29/2025 [id number] / NA / Pin, Tip Threaded Guide - S. - [id number] Implanted:Qty: 1 on 10/26/2022 by Anant John MD at [facility] Pin Right: Ankle [employer]obbins [employer] Nephew [employer] Inc-[id number] 10/27/2023 [id number] / . / Pin [place] Meyer 6.0mm Selfdrill/Tap 40mm Thrd/150mm - [id number] - [id number] Implanted:Qty: 1 on 06/29/2024 by Anant John MD at [facility] Pin Right: [facility] [employer] ([facility][id number] 68 06/19/2028 5014-4-150S / 5014-4-150S / [id number] Pin [place] Meyer 6.0mm Selfdrill/Tap 40mm Thrd/150mm - [id number] - [id number] Implanted:Qty: 1 on 06/29/2024 by Anant John MD at [facility] Pin Right: [employer] [id number] 68 06/19/2028 5014-4-150S / 5014-4-150S / [id number] Plate Plate Bilateral : Foot Screw Trigen 5.0mm For Metanail 32.5mm - S. - [id number] Implanted:Qty: 1 on 10/26/2022 by Anant John MD at [facility] Screw Right: Ankle [employer]hew [employer]-[id number] 02/07/2032 [id number] / . / Screw Trigen 5.0mm For Metanail 72.5mm - S. - [id number] Implanted:Qty: 1 on 10/26/2022 by Anant John MD at [facility] Screw Right: Ankle [employer]-[id number] 10/11/2031 [id number] / . / Screw Trigen 5.0mm For Metanail 27.5mm - S. - [id number] Implanted:Qty: 1 on 10/26/2022 by Anant John MD at [facility] Screw Right: Ankle [employer]hew [employer]-[id number] 10/27/2023 [id number] / . / Screw Trigen 5.0mm Internal Capture 50mm - S. - [id number] Implanted:Qty: 1 on 10/26/2022 by Anant John MD at [facility] Screw Right: Ankle [employer]hew [employer] Inc-[id number] 03/03/2032 [id number] / . / Screw Trigen 5.0mm Internal Capture 65mm - S. - [id number] Implanted:Qty: 1 on 10/26/2022 by Anant John MD at [facility] Screw Right: Ankle [employer]obbins [employer]hew [employer] Inc-[id number] 01/23/2032 [id number] / . / Nail Trigen Hindfoot [id number] Right - [id number] Implanted:Qty: 1 on 10/26/2022 by Anant John MD at [facility] Right: Ankle Dobbins [employer] Nephew [employer]quez Inc-[id number] 06/12/2030 [id number] / / Synthecure Synthetic Calcium Sulfate 10cc - [id number] Implanted:Qty: 1 on 02/03/2024 by Anant John MD at [facility] [employer] [facility]-[id number] 08/18/2025 50-010 / / Synthecure Synthetic Calcium Sulfate 10cc - [id number] Implanted:Qty: 1 on 02/03/2024 by Anant John MD at [facility] [employer] [facility]-[id number] 08/18/2025 50-010 / / Synthecure Synthetic Calcium Sulfate 10cc - [id number] Implanted:Qty: 1 on 02/03/2024 by Anant John MD at [facility]9183[facility] 12/15/2025 50-010 / / Pin [place] Meyer 6.0mm Selfdrill/Tap 60mm Thrd/150mm - [id number] Implanted:Qty: 1 on 02/03/2024 by Anant John MD at [facility])-1391 68 08/20/2027 5014-6-150S / / [id number] Pin [place] Meyer 6.0mm Selfdrill/Tap 60mm Thrd/150mm - [id number] Implanted:Qty: 1 on 02/03/2024 by Anant John MD at [facility])-139 68 03/21/2025 5014-6-150S / / [id number] Ring Static Strut Connection Jesup - [id number] Implanted:Qty: 14 on 02/03/2024 by Anant [facility] MD at [facility]902/02/2025 4933-1-702 / / Wire [place]i [place] Fairchance 2.0mm X 450mm - [id number] Implanted:Qty: 6 on 02/03/2024 by Anant John MD at [facility])-[address]902/02/2025 4933-8-040 / / Aluminium Full Ring 180mm - [id number] Implanted:Qty: 1 on 02/03/2024 by Anant John MD at [facility]902/02/2025 4933-2-180 / / Self Locking Nut - [id number] Implanted:Qty: 32 on 02/03/2024 by Anant John MD at [facility]139 68 02/02/2025 4933-0-802 / / Wire Jesup Short - [id number] Implanted:Qty: 16 on 02/03/2024 by Anant John MD at [facility])-1391 68 02/02/2025 4933-1-001 / / 3 Hole Half Pin Post Cubes - [id number] Implanted:Qty: 2 on 02/03/2024 by Anant John MD at [facility])-1391 68 02/02/2025 954-0035 / / [place] Pin Jesup 3 6 - [id number] Implanted:Qty: 1 on 02/03/2024 by Anant John MD at [facility])-[address]902/02/2025 4933-1-022 / / Samuel Threaded Optional 250mm - [id number] Implanted:Qty: 4 on 02/03/2024 by Anant John MD at [facility])-13902/02/2025 4933-1-250 / / Ring Thrd Samuel Connectn Nut M6x6mm - [id number] Implanted:Qty: 22 on 02/03/2024 by Anant John MD at [facility])-[address]902/02/2025 4933-1-701 / / Pin [place] Meyer 6.0mm Selfdrill/Tap 60mm Thrd/150mm - [id number] Implanted:Qty: 1 on 02/03/2024 by Anant John MD at [facility])-1391 08/20/2027 5014-6-150S / / [id number] M6 Hinge Jesup Medium - [id number] Implanted:Qty: 4 on 02/03/2024 by Anant John MD at [facility])-1391 68 02/02/2025 4934-1-008 / / Slotted Plate - [id number] Implanted:Qty: 2 on 02/03/2024 by Anant John MD at [facility])-1391 68 02/02/2025 4934-1-060 / / Aluminum Foot Ring Long 155mm - [id number] Implanted:Qty: 2 on 02/03/2024 by Anant John MD at [facility])-1391 68 02/02/2025 4934-2-155 / / Foot Arch 155mm - [id number] Implanted:Qty: 2 on 02/03/2024 by Anant John MD at [facility])-1391 68 02/02/2025 4934-6-155 / / Wire [place] Point 1.8mm X 450mm - [id number] Implanted:Qty: 12 on 02/03/2024 by Anant John MD at [facility])-1391 68 02/02/2025 4933-8-010 / / Wire Jesup Medium - [id number] Implanted:Qty: 6 on 02/03/2024 by Anant John MD at [facility])-1391 68 02/02/2025 4933-1-002 / / Wire Jesup Long - [id number] Implanted:Qty: 2 on 02/03/2024 by Anant John MD at [facility])-1391 68 02/02/2025 4933-1-003 / / Washer 7mm Red - [id number] Implanted:Qty: 4 on 02/03/2024 by Anant John MD at [facility])-1391 68 02/02/2025 4933-1-713 / / Medium Rocker Shoe Long - [id number] Implanted:Qty: 1 on 02/03/2024 by Anant John MD at [facility])-1391 68 02/02/2025 4934-8-140 / / Static Strut Medium L 40mm - [id number] Implanted:Qty: 4 on 02/03/2024 by Anant John MD at [facility] [employer] ([facility])-1391 68 02/02/2025 4933-1-540 / / Plate Wedge Subtalar Distraction Univwedge 18mm - [id number] - [id number] Implanted:Qty: 1 on 02/03/2024 by Anant John MD at [facility] [employer] Inc-[id number] 07/02/2028 PSBT-1818 / [id number] / 5 Hole Half Pin Post Cubes - Sna - [id number] Implanted:Qty: 1 on 06/29/2024 by Anant John MD at [facility] Right: Leg [employer] ([facility])-1391 68 06/29/2025 954-0045 / NA / Synthecure Synthetic Calcium Sulfate 10cc - [id number] Implanted:Qty: 3 on 08/26/2024 by Anant John MD at [facility] [employer] Inc-[id number] 03/30/2027 50-010 / / [id number] Nail Panta Arthrodesis 56m953hq - [id number] Implanted:Qty: 1 on 08/26/2024 by Anant John MD at [facility] Right: Ankle Dobbins & NephCooper's Classics Inc-[id number] 04/22/2028 HASSAN-1010-11 240 / / [id number] Tissue Augment Bone Graft Injectable Kit 3cc - [id number] Implanted:Qty: 1 on 08/26/2024 by Anant John MD at [facility] IgnitionOne-140 187 09/16/2026 [id number] / / [id number] Samuel Compression Panta 5mm - [id number] Implanted:Qty: 2 on 08/26/2024 by Anant John MD at [facility] Dobbins & Neph Marquez Inc-[id number] 08/26/2025 HASSAN-1010-01 75 / / Guidewire Panta 3.1l964uj - [id number] Implanted:Qty: 2 on 08/26/[facility][id number] 08/26/2025 HASSAN-1010-00 34 / / Screw 5.0mm Panta Full Thread Sz30 - [id number] Implanted:Qty: 2 on 08/26/2024 by Anant John MD at [facility] & Nephew [employer] Inc-[id number] 08/26/2025 HASSAN-1010-14 30NS / / Screw 5.0mm Panta Part Thread C-Screw Sz90 - [id number] Implanted:Qty: 1 on 08/26/2024 by Anant John MD at [facility] & [employer]hew [employer] Inc-[id number] 08/26/2025 HASSAN-1010-26 90NS / / Screw 5.0mm Panta Part Thread C-Screw Sz100 - [id number] Implanted:Qty: 1 on 08/26/2024 by Anant John MD at [facility] Dobbins [employer] Nephew [employer] Inc-[id number] 08/26/2025 HASSAN-1010-27 00NS / / Explanted Type Area Fish Cutter Device Identifier Shelf Expiration Date Model / Serial / Lot Screw Trigen 5.0mm For Metanail 32.5mm - S. - [id number] Explanted:Qty: 1 on 10/26/2022 at [facility] Screw Right: Ankle [employer]-[id number] 01/20/2032 [id number] / . / Screw Trigen 5.0mm Internal Capture 75mm - S. - [id number] Explanted:Qty: 1 on 10/26/2022 at [facility] Screw Right: Ankle [employer]-[id number] 12/25/2031 [id number] / . / Procedures Procedure Name Priority Date/Time Associated Diagnosis Comments XR HIP-ANKLE RIGHT JOINT SURVEY STAT 12/24/2024 3:04 PM EDT Status post ankle fusion XR HIP-ANKLE LEFT JOINT SURVEY STAT 12/24/2024 3:04 PM EDT Status post ankle fusion XR ANKLE RIGHT 3+ VIEWS Routine 12/25/19 2:02 PM EDT Status post ankle fusion HEMOGLOBIN A1C Routine 07/23/2024 1:02 PM EDT Type 2 diabetes mellitus with other specified complication, with long-term current use of insulin ([facility]/HCC) HEPATITIS C ANTIBODY - ED W/REFLEX TO HCV QUANT PCR STAT 03/04/2024 11:03 AM EST ED HIV 1/2 ANTIBODY/ANTIGEN SCREEN WITH REFLEX TO HIV I/II DIFFERENTIATION STAT 03/04/2024 11:03 AM EST from Last 3 Months or Most Recently Relevant to Health Maintenance Results * XR Hip-Ankle Right Joint Survey [...] space and alignment are normal. Procedure Note Jennifer, Micheal J, MD - 12/24/2024 CLINICAL INDICATION: pain TECHNIQUE: [...] on 12/24/2024 3:23 PM us Christa Lockhart REMARKETING MANAGER IMG XR PROCEDURES Final Re sult * [...] on 12/24/2024 3:23 PM us Christa Lockhart REMARKETING MANAGER IMG XR PROCEDURES Final Re sult * [...] Rodriguez MD on 12/24/2024 3:23 PM us Anant John MD IMG XR PROCEDURES Final Re sult * (ABNORMAL) Hemoglobin A1c (07/23/2024 1:02 PM EDT) Hemoglobin A1c 9.3(H) <5.7 % 07/23/2024 5:25 PM EDT [facility] Blood Venous blood specimen / Unknown Venipuncture / Unknown 07/23/2024 1:02 PM EDT 07/23/2024 1:02 PM EDT Narrative [facility] - 07/23/2024 5:25 PM EDT HA1C Interpretive Data: Diagnosis of Diabetes: Diabetic > or = 6.5% Pre-diabetic 5.7 to 6.4% Non-diabetic < or = 5.6% Glycemic Targets for Type I and Type II Diabetics: Non- Adults <7.0% Adults <6.0% Children and Adolescents <7.5% Source: [place] [employer]. Standards of medical care in diabetes,2017. Diabetes Care.2017:40 (suppl 1):S1-S135. HbA1c assay performed by an ion-exchange chromatography method that is certified traceable to the DCCT. us Cornelia Mendez APRN LAB BLOOD ORDERABLES Final Result [facility] [address] [place] [address] * ED HIV 1/2 Antibody/Antigen Screen w/Reflex to HIV 1/2 Differentiation (03/04/2024 11:03 AM EST) HIV 1 & 2 Antibody/Antigen Screen Non Reactive Non Reactive 03/04/2024 12:05 PM EST [facility] Comment:Screening for HIV 1 & 2 antibodies, and P24 antigen is NONREACTIVE. No confirmatory testing is required. Blood Venous blood specimen / Unknown Venipuncture / Unknown 03/04/2024 11:03 AM EST 03/04/2024 11:25 AM EST us Dayana Morales MD LAB BLOOD ORDERABLES Final Re sult Performing Organization Address City/[facility]/ZIP Co de Phone Number [facility] [address] [place] [address] * Hepatitis C Antibody - ED (03/04/2024 11:03 AM EST) Pathologist [facility] Hepatitis C Antibody Negative Negative 03/04/2024 12:05 PM EST [facility] Blood Venous blood specimen / Unknown Venipuncture / Unknown 03/04/2024 11:03 AM EST 03/04/2024 11:25 AM EST us Dayana Morales MD LAB BLOOD ORDERABLES Final Re sult [facility] [address] [place] [address] from Last 3 Months or Most Recently Relevant to Health Maintenance Additional Health Concerns Infection Onset Date Last Indicated MRSA 05/14/2024 05/14/2024 Insurance [employer] MEDICARE Advance Directives * Full Code (Latest Code Status on File) Date Activated Date Inactivated Comments 01/31/2024 1:33 PM 02/08/2024 3:28 PM Question Answer Comments Patient has decision-making capacity? Yes * Full Code Date Activated Date Inactivated Comments 10/26/2022 6:31 PM 10/30/2022 8:47 PM Question Answer Comments Patient has decision-making capacity? Yes * Full Code Date Activated Date Inactivated Comments 10/25/2022 10:27 PM 10/26/2022 6:31 PM Question Answer Comments Patient has decision-making capacity? Yes Care Teams Method Consultant Relationship Specialty Start Date End Date Julio C Rogel APRN [address] [place] [address] PCP - General 09/17/24
--- OUTSIDE RECORDS SUMMARY | 2025-02-07 18:07 | XMS_ITS | Encounter Summary ---
Author Organization Healthcare Address [address] [place] [address] Care Team Providers Care Postal Worker Name Role Phone Kendall Mccrary DO Primary Care Provider [phone] System, Provider Not In MD Primary Care Provider Unavailable Julio C Rogel APRN Primary Care Provider [phone] Reason for Visit * Reason Onset Date Comments HCN Clinical Concern/Question 06/26/2024 Encounter Details Date Type Department Care Team (Late st Contact Info) Description 06/26/2024 Refill [facility] Orthopaedic Surgery & Sports Medicine [address], [address] [place] [address] Anant John MD [address] [place] [address] Social History Tobacco Use Types Packs/Day Years [...] and Family Not on file 02/04/2024 Attends Baptism Services Not on file 02/03 Active Member [...] Answer Date Recorded Patient Health Questionnaire-2 Score 1 04/06/2024 Hunger Vital Sign Answer Date Recorded Within [...] to sleep or slept in a senior care (including now)? No 02/04/2024 PHQ-9 Answer Date Recorded Patient Health Questionnaire-9 Score 7 04/06/2024 CAGE ASSESSMENT Answer Date Recorded Cage unable [...] drink first t shirin in the morning (EYE-LEAN MANUFACTURING LEADER) to steady your nerves or to get rid of a hangover? 0 10/26/2022 CAGE Questionnaire Score 0 023 Utilities Answer Date Recorded In the past 12 months has e [employer], gas, oil, or water [employer] threatened to shut off services in your home? No 02/04/2024 PHQ-2A Answer Date Recorded Patient Health Questionnaire-2 Score 0 01/24/2023 Comments No Sex and Gender Information Value Date Recorded Sex Assigned at Female 01/14/2024 10:28 AM EDT Legal Sex Female 8:26 PM EDT Gender Identity Female 01/14/2024 10:28 AM EDT Sexual Orientation Not on file documented as of this encounter Miscellaneous Notes * Telephone Encounter - Nathalia Cobos PA - 07/07/2024 8:21 AM EDT Pt underwent surgery 06/29 and had medications sent in at this time * Telephone Encounter - Himanshu Beckham RN - 06/26/2024 4:09 PM EST Told patient of meds being sent in, she asked to switch it to [facility]. * Telephone Encounter - Alonzo Kendall Mchugh - 06/26/2024 1:03 PM EST Clinical Concern/Question Reason for Call: Dr. John pt // Rita, home health provider with [facility], is requesting a call back from clinical staff. Pt's BP is 180-78 as of today and she would like to know how to address this before pt's upcoming surgery. Best contact number: Other: [phone] Optimal time of day to reach caller: ANYTIME Additional comments/information from caller: None Note: Please do not reply to this message. Follow-up communication and further actions as a result of this message need to be communicated with the patient directly, if the patient is not active onMyChart. If the patient is active on MyChart, they will receive notification of the communication/outcome via MyChart. documented in this encounter Plan of Treatment Upcoming Encounters Date Type Department Care Team (Late st Contact Info) Description 02/19/2025 12:40 PM EDT [facility] [address] [place] [address] Cornelia Mendez, GOLF COURSE STARTER [address] [facility] [address] [place] [phone] 06/24/2025 10:30 AM EST Office Visit [facility] Orthopaedic Surgery & Sports Medicine [address] [place] [address] Anant John MD [address] [place] [address] documented as of this encounter Visit Diagnoses Not on filedocumented in this encounter Additional Health Concerns Infection Onset Date Last Indicated Resolved Time MRSA 05/14/2024 05/14/2024 Assessment Noted Time PHQ-9 Depression Total Score: 7 04/06/20 24 3:12 PM EST A fall risk assessment has been complete d for the patient 06/25/2024 10:57 AM EST A Body Mass Index follow-up plan has been documented for the patient 06/25/2024 12:54 PM EST documented as of this encounter Care Teams Postal Worker Relationship Specialty Start Date End Date Kendall Mccrary DO [address] [place] [address] PCP - General 05/30/23 08/09/24 System, Provider Not In, [address] [place] [address] PCP - General Family Medicine 08/10/24 09/16/24 Julio C Rogel APRN [address] [place] [address] PCP - General 09/17/24 documented as of this encounter
--- OUTSIDE RECORDS SUMMARY | 2025-02-07 18:07 | XMS_ITS | Encounter Summary ---
Author Organization Healthcare Address [address] [place] [address] Care Team Providers Care Site Technician Name Role Phone Julio C Rogel SUPERVISOR CARBON PAPER COATING Primary Care Provider [phone] Reason for Visit * Reason Onset Date Comments Prior-authorization/insurance Verification 01/04 Encounter Details Date Type Department Care Team (Late st Contact Info) Description 01/04/2025 Telephone [facility] Endocrinology [address] [place] [address] Cornelia Mendez, SUPERVISOR CARBON PAPER COATING [address] [facility] [address] [place] [address] Prior-authorization/in surance Verification Social History Tobacco Use Types Packs/Day Years [...] and Family Not on file 02/04/2024 Attends Gnosticism Services Not on file 02/03 Active Member [...] place to sleep or slept in a alf (including now)? No 02/04/2024 PHQ-9 Answer Date [...] drink first t shirin in the morning (EYE-DIRECTOR SALES SUPPORT) to steady your nerves or to get [...] on file documented as of this encounter Plan of Treatment Upcoming Encounters Date Type Department Care Team (Late st Contact Info) Description 02/19/2025 12:40 PM EDT Office Visit [facility] Endocrinology [address] [place] [address] Cornelia Mendez, SUPERVISOR CARBON PAPER COATING [address] [place] [address] 06/24/2025 10:30 AM EST Office Visit [facility] Orthopaedic Surgery & Sports Medicine [address] [place] [address] Anant John MD [address] [place] [address] documented as of this encounter [...] documented as of this encounter Care Teams Site Technician Relationship Specialty Start Date End Date Julio C Rogel APRN [address] [place] [address] PCP - General 09/17/24 documented as of this encounter
--- OUTSIDE RECORDS SUMMARY | 2025-02-07 18:07 | XMS_ITS | Encounter Summary ---
Author Organization Healthcare Address [address] [place] [address] Care Team Providers Care Printing Plate Maker Name Role Phone Kendall Mccrary DO Primary Care Provider [phone] System, Provider Not In MD Primary Care Provider Unavailable Julio C Rogel APRN Primary Care Provider [phone] Encounter Details Date Type Department Care Team (Late st Contact Info) Description 06/27/2023 Orders Only External Location [address] [place] [address] Provider, External Social History Tobacco Use Types Packs/Day Years Used Date Smoking Tobacco: Former Cigarettes Smokeless Tobacco: Never Alcohol Use Standard Drinks/Week Comments Not Currently 0 (1 standard drink = 0.6 oz pur e alcohol) PHQ-2 Answer Date Recorded Patient Health Questionnaire-2 Score 0 01/24/2023 CAGE ASSESSMENT Answer Date Recorded Cage unable [...] drink first t shirin in the morning (EYE-VENETIAN BLIND INSTALLER) to steady your nerves or to get rid of a hangover? 0 10/26/2022 CAGE Questionnaire Score 0 023 PHQ-2A Answer Date Recorded Patient Health Questionnaire-2 [...] Description 02/19/2025 12:40 PM EDT Office Visit [facility] Endocrinology [address] [place] [address] Cornelia Mendez, PROOFREADER [address] [facility] [address] [place] [address] 06/24/2025 10:30 AM EST Office Visit [facility] Orthopaedic Surgery & Sports Medicine [address], [address] [place] [address] Anant John MD [address] [place] [address] documented as of this encounter Procedures Procedure Name Priority Date/Time Associated Diagnosis Comments XR MSK OUTSIDE IMAGES 06/27/2023 12:41 PM EST documented in this encounter Results * XR MSK OUTSIDE IMAGES (06/27/2023 12:41 PM EST) Anatomical Region Laterality Modality Radiographic May ging 06/27/2023 12:4 1 PM EST us External Provider IMG XR PROCEDURES Final Result documented in this encounter Visit Diagnoses Not on filedocumented in this encounter Additional Health Concerns Infection Onset Date Last Indicated Resolved Time MRSA 05/14/2024 05/14/2024 Assessment Noted Time A fall risk assessment has been complete d for the patient 06/27/2023 2:54 PM EST A Body Mass Index follow-up plan has been documented for the patient 07/06/2023 2:51 PM EDT documented as of this encounter Care Teams Printing Plate Maker Relationship Specialty Start Date End Date Kendall Mccrary DO [address] [place] [address] PCP - General 05/30/23 08/09/24 System, Provider Not In, [place] [address] PCP - General Family Medicine 08/10/24 09/16/24 Julio C Rogel, JAMES [address] [place] [address] PCP - General 09/17/24 documented as of this encounter
--- OUTSIDE RECORDS SUMMARY | 2025-02-07 18:07 | XMS_ITS | Encounter Summary ---
Author Organization Healthcare Address [address] [place] [address] Care Team Providers Care Special Agent Group Insurance Name Role Phone Julio C Rogel APRN Primary Care Provider [phone] Encounter Details Date Type Department Care Team (Latest Contact Info) Description 12/24/2024 Travel Social History Tobacco Use Types Packs/Day Years [...] and Family Not on file 02/04/2024 Attends Jehovah'S Witness Services Not on file 02/03 Active Member [...] place to sleep or slept in a long-term (including now)? No 02/04/2024 PHQ-9 Answer Date [...] drink first t shirin in the morning (EYE-WELDING PROCESS SPECIALIST) to steady your nerves or to get rid of a hangover? 0 10/26/2022 CAGE Questionnaire Score 0 023 Utilities Answer Date Recorded In the past 12 months has e [employer], gas, oil, or water company threatened to [...] Description 02/19/2025 12:40 PM EDT Office Visit [facility] Endocrinology [address] [place] [address] Cornelia Mendez, INSPECTOR ALIGNING [address] [facility] [address] [place] [address] 06/24/2025 10:30 AM EST Office Visit [facility] Orthopaedic Surgery & Sports Medicine [address], [address] [place] [address] Anant John MD [address] [place] [address] documented as of this encounter [...] documented as of this encounter Care Teams Special Agent Group Insurance Relationship Specialty Start Date End Date Julio C Rogel APRN [address] [place] [address] PCP - General 09/17/24 documented as of this encounter
--- OUTSIDE RECORDS SUMMARY | 2025-02-07 18:07 | XMS_ITS | Encounter Summary ---
Author Organization Healthcare Address [address] [place] [address] Care Team Providers Care Fixture Builder Name Role Phone Julio C Rogel APRN Primary Care Provider [phone] Encounter Details Date Type Department Care Team (Late st Contact Info) Description 01/19/2025 Telephone [facility] Nephrology, Bone & Mineral Metabolism [address] [facility], [address] [place] [address] Celina Russell, SENIOR ORACLE SOA DEVELOPER GS - 7 MAIN MEDICAL-SURGICAL Social History Tobacco Use Types Packs/Day Years [...] and Family Not on file 02/04/2024 Attends [employer] Services Not on file 02/03 Active Member [...] place to sleep or slept in a jail (including now)? No 02/04/2024 PHQ-9 Answer Date [...] drink first t shirin in the morning (EYE-SAILOR) to steady your nerves or to get rid of a hangover? 0 10/26/2022 CAGE Questionnaire Score 0 023 Utilities Answer Date Recorded In the past 12 months has [employer], gas, oil, or water [email or web address] threatened to shut off services in your [...] encounter Miscellaneous Notes * Telephone Encounter - Celina Russell - 01/19/2025 12:12 PM EDT 01/19/2025 CALLED NO ANSWER LEFT VM ABOUT LABS documented in this encounter Plan of Treatment Upcoming Encounters Date Type Department Care Team (Late st Contact Info) Description 02/19/2025 12:40 PM EDT Office Visit [facility] Endocrinology [address] [place] [address] Cornelia Mendez, FASHION CONSULTANT SELLING [address] [place] [address] 06/24/2025 10:30 AM EST Office Visit [facility] Orthopaedic Surgery & Sports Medicine [address] [place] [address] Anant John MD [address] [place] [address] documented as of this encounter [...] documented as of this encounter Care Teams Fixture Builder Relationship Specialty Start Date End Date Julio C Rogel APRN [address] [place], [place] [id number] PCP - General 09/17/24 documented as of this encounter
--- OUTSIDE RECORDS SUMMARY | 2025-02-07 18:07 | XMS_ITS | Encounter Summary ---
Author Organization Healthcare Address [address] [place] [address] Care Team Providers Care Tangled Yarn Worker Name Role Phone Julio C Rogel APRN Primary Care Provider [phone] Encounter Details Date Type Department Care Team (Latest Contact Info) Description 01/14/2025 Travel Social History Tobacco Use Types Packs/Day [...] place to sleep or slept in a halfway (including now)? No 02/04/2024 PHQ-9 Answer Date [...] drink first t shirin in the morning (EYE-TRANSPORT AIRCREWMAN) to steady your nerves or to get rid of a hangover? 0 10/26/2022 CAGE Questionnaire Score 0 023 Utilities Answer Date Recorded In the past 12 months has e [employer], gas, oil, or water company threatened to [...] Description 02/19/2025 12:40 PM EDT Office Visit [facility] Endocrinology [address] [place] [address] Cornelia Mendez, BUTTON BROACHER [address] [facility] [address] [place] [address] 06/24/2025 10:30 AM EST Office Visit [facility] Orthopaedic Surgery & Sports Medicine [address], [address] [place] [address] Anant John MD [address] [place] [address] documented as of this encounter [...] documented as of this encounter Care Teams Tangled Yarn Worker Relationship Specialty Start Date End Date Julio C Rogel APRN [address] [place] [address] PCP - General 09/17/24 documented as of this encounter
--- OUTSIDE RECORDS SUMMARY | 2025-02-07 18:07 | XMS_ITS | Encounter Summary ---
Author Organization Healthcare Address [address] [place] [address] Care Team Providers Care Conveyor Monitor Name Role Phone Julio C Rogel APRN Primary Care Provider [phone] Encounter Details Date Type Department Care Team (Late st Contact Info) Description 01/05/2025 Orders Only [facility] Endocrinology [address] [place] [address] Cornelia Mendez, INDEPENDENT BEAUTY CONSULTANT [address] [facility] [address] [place] [address] Type 2 diabetes mellitus with other specified complication, with long-term current use of insulin ([facility]) (Primary Dx) Social History Tobacco Use Types [...] and Family Not on file 02/04/2024 Attends Caodaism Services Not on file 02/03 Active Member [...] place to sleep or slept in a penitentiary (including now)? No 02/04/2024 PHQ-9 Answer Date [...] drink first t shirin in the morning (EYE-REPAIR MECHANIC) to steady your nerves or to get [...] as of this encounter Miscellaneous Notes * Progress Notes - Cornelia Mendez APRN - 01/05/2025 3:17 PM EDT Labs ordered documented in this encounter Plan of Treatment Upcoming Encounters Date Type Department Care Team (Late st Contact Info) Description 02/19/2025 12:40 PM EDT Office Visit [facility] Endocrinology [address] [place] [address] Cornelia Mendez, INDEPENDENT BEAUTY CONSULTANT [address] [place] [address] 06/24/2025 10:30 AM EST Office Visit [facility] Orthopaedic Surgery & Sports Medicine [address], [address] [place] [address] Anant John MD [address] [place] [address] Scheduled Orders Name Type Priority Associated Diagnoses Orde r Schedule Albumin-creatinine ratio, urine, random Lab Routine Type 2 diabetes mellitus with other specified complication, with long-term current use of insulin (CMS/[facility]) Expected: 01/07/2025 (Approximate), Expires: 07/09/2026 Comprehensive Metabolic Panel, Plasma Lab Routine Type 2 diabetes mellitus with other specified complication, with long-term current use of insulin (CMS/HCC) Expected: 01/07/2025 (Approximate), Expires: 07/09/2026 Thyroid Stimulating Hormone, Plasma Lab Routine Type 2 diabetes mellitus with other specified complication, with long-term current use of insulin (CMS/HCC) Expected: 01/07/2025 (Approximate), Expires: 07/09/2026 Lipid Profile, Plasma Lab Routine Type 2 diabetes mellitus with other specified complication, with long-term current use of insulin (CMS/HCC) Expected: 01/07/2025 (Approximate), Expires: 07/09/2026 Hemoglobin A1c Lab Routine Type 2 diabetes mellitus with other specified complication, with long-term current use of insulin (CMS/HCC) Expected: 01/07/2025 (Approximate), Expires: 07/09/2026 Free T4, Plasma Lab Routine Type 2 diabetes mellitus with other specified complication, with long-term current use of insulin (CMS/HCC) Expected: 01/07/2025 (Approximate), Expires: 07/09/2026 documented as of this encounter Visit Diagnoses Diagnosis Type 2 diabetes mellitus with other specified complication, with long-term current use of insulin- Primary documented in this encounter Additional Health Concerns [...] documented as of this encounter Care Teams Conveyor Monitor Relationship Specialty Start Date End Date Julio C Rogel APRN [address] [place] [address] PCP - General 09/17/24 documented as of this encounter
--- OUTSIDE RECORDS SUMMARY | 2025-02-07 18:07 | XMS_ITS | Encounter Summary ---
Author Organization Healthcare Address [address] [place] [address] Care Team Providers Care Corncob Pipes Assembler Name Role Phone Jabari Lawrence MD Primary Care Provider [phone] Kendall Mccrary DO Primary Care Provider [phone] System, Provider Not In MD Primary Care Provider Unavailable Julio C Rogel APRN Primary Care Provider [phone] Encounter Details Date Type Department Care Team (Late st Contact Info) Description 04/09/2023 Orders Only External Location [address] [place] [address] [address] [address] Social History Tobacco Use Types Packs/Day Years Used Date Smoking Tobacco: Never Smokeless Tobacco: Never Alcohol Use Standard Drinks/Week [...] drink first t shirin in the morning ([employer]) to steady your nerves or to get [...] Description 02/19/2025 12:40 PM EDT Office Visit [facility] Endocrinology [address] [place] [id number] Cornelia Mendez, ORNAMENTAL IRONWORKING SUPERVISOR [address] [place] [id number] 06/24/2025 10:30 AM EST Office Visit [facility] Surgery [facility] Medicine [address] [place] [address] Anant John MD [address] [place] [address] documented as of this encounter Procedures Procedure Name Priority Date/Time Associated Diagnosis Comments CT [facility] OUTSIDE IMAGES 04/09/2023 1:00 PM EST documented in this encounter Results * CT MSK OUTSIDE IMAGES (04/09/2023 1:00 PM EST) Anatomical Region Laterality Modality Computed Tomogra phy 04/09/2023 1:00 PM EST [address] [facility] [address] PROCEDURES Final Result documented in this encounter Visit Diagnoses Not on filedocumented in this encounter Additional Health Concerns Infection Onset Date Last Indicated Resolved Time MRSA 05/14/2024 05/14/2024 Assessment Noted Time A fall risk assessment has been complete d for the patient 02/21/2023 9:20 AM EDT A Body Mass Index follow-up plan has been documented for the patient 03/07/2023 10:41 AM EST documented as of this encounter Care Teams Corncob Pipes Assembler Relationship Specialty Start Date End Date Jabari Lawrence MD [address] [place] [address] PCP - General 10/25/22 05/29/23 Kendall Mccrary DO [address] [place] [address] PCP - General 05/30/23 08/09/24 System, Provider Not In, [address] [place] [address] PCP - General Family Medicine 08/10/24 09/16/24 Julio C Rogel APRN [address] [place] [address] PCP - General 09/17/24 documented as of this encounter
--- NOTE | 2025-02-07 18:21 | CT_ITS ---
PROCEDURE INFORMATION: Exam: CT Abdomen And Pelvis With Contrast Exam date and time: 02/07/2025 7:41 PM Age: 59 years old Clinical indication: Abdominal pain; Additional info: Diarrhea, abdominal pain TECHNIQUE: Imaging protocol: Computed tomography of the abdomen and pelvis with contrast. Radiation optimization: All CT scans at this facility use at least one of these dose optimization techniques: automated exposure control; mA and/or kV adjustment per patient size (includes targeted exams where dose is matched to clinical indication); or iterative reconstruction. Contrast material: ISOVUE; Contrast volume: 75 ml; Contrast route: IV; COMPARISON: CT ABDOMEN PELVIS W CON 09/16/2024 11:34 PM FINDINGS: Tubes, catheters and devices: None noted. Lungs: Lung bases appear clear. Heart: No significant coronary calcifications. No cardiomegaly. No significant pericardial effusion. Liver: Normal. No mass. Gallbladder and biliary ducts: Cholecystectomy. No ductal dilation. Pancreas: Normal. No ductal dilation. Spleen: Normal. No splenomegaly. Adrenal glands: Normal. No mass. Kidneys and ureters: Normal. No hydronephrosis. Stomach and bowel: Unremarkable. No obstruction. No mucosal thickening. Appendix: No evidence of appendicitis. Intraperitoneal space: Unremarkable. No free air. No significant fluid collection. Retroperitoneal space: No significant retroperitoneal inflammatory changes are noted. Vasculature: Unremarkable. No abdominal aortic aneurysm. Lymph nodes: Unremarkable. No enlarged lymph nodes. Urinary bladder: Unremarkable as visualized. Reproductive: Unremarkable as visualized. Bones/joints: Unremarkable. No acute fracture. Soft tissues: Unremarkable. IMPRESSION: No acute findings.
--- NOTE | 2025-02-07 18:21 | CT_ITS ---
PROCEDURE INFORMATION: Exam: CTA Head With Contrast, Arteriography Exam date and time: 02/07/2025 7:38 PM Age: 59 years old Clinical indication: Dizziness and giddiness; Additional info: Dizziness, loss of balance TECHNIQUE: Imaging protocol: Computed tomographic angiography of the head with contrast. Exam focused on the arteries. 3D rendering (Not supervised by radiologist): MIP and/or 3D reconstructed images were created by the technologist. Radiation optimization: All CT scans at this facility use at least one of these dose optimization techniques: automated exposure control; mA and/or kV adjustment per patient size (includes targeted exams where dose is matched to clinical indication); or iterative reconstruction. Contrast material: ISOVUE; Contrast volume: 80 ml; Contrast route: INTRAVENOUS (IV); COMPARISON: CT HEAD/BRAIN WO CON 02/07/2025 7:36 PM FINDINGS: ANTERIOR CIRCULATION: Right internal carotid artery: Moderate calcific atherosclerotic disease of the right intracranial ICA resulting in moderate stenosis of the cavernous and ophthalmic segments. Right middle cerebral artery: No occlusion or significant stenosis. No aneurysm. Right anterior cerebral artery: No occlusion or significant stenosis. No aneurysm. Left internal carotid artery: Moderate calcific atherosclerotic disease of the left intracranial ICA result in mild stenosis of the ophthalmic segment. Left middle cerebral artery: No occlusion or significant stenosis. No aneurysm. Left anterior cerebral artery: No occlusion or significant stenosis. No aneurysm. POSTERIOR CIRCULATION: Right vertebral artery: No occlusion or significant stenosis. No aneurysm. Left vertebral artery: No occlusion or significant stenosis. No aneurysm. Basilar artery: No occlusion or significant stenosis. No aneurysm. Right posterior cerebral artery: No occlusion or significant stenosis. No aneurysm. Left posterior cerebral artery: No occlusion or significant stenosis. No aneurysm. Brain: No definite mass, mass effect, or midline shift. Cerebral ventricles: No ventriculomegaly. Bones/joints: Unremarkable. No acute fracture. Soft tissues: Unremarkable. IMPRESSION: 1. Moderate calcific atherosclerotic disease of the right intracranial ICA resulting in moderate stenosis of the cavernous and ophthalmic segments. 2. Moderate calcific atherosclerotic disease of the left intracranial ICA result in mild stenosis of the ophthalmic segment.
--- NOTE | 2025-02-07 18:21 | CT_ITS ---
PROCEDURE INFORMATION: Exam: CTA Neck With Contrast Exam date and time: 02/07/2025 7:38 PM Age: 59 years old Clinical indication: Dizziness and giddiness; Additional info: Dizziness, loss of balance TECHNIQUE: Imaging protocol: Computed tomographic angiography of the neck with contrast. Exam focused on the cervical segments of the vasculature. 3D rendering (Not supervised by radiologist): MIP and/or 3D reconstructed images were created by the technologist. Radiation optimization: All CT scans at this facility use at least one of these dose optimization techniques: automated exposure control; mA and/or kV adjustment per patient size (includes targeted exams where dose is matched to clinical indication); or iterative reconstruction. Contrast material: ISOVUE; Contrast volume: 80 ml; Contrast route: INTRAVENOUS (IV); COMPARISON: CT HEAD/BRAIN WO CON 02/07/2025 7:36 PM FINDINGS: Right common carotid artery: No stenosis. No dissection or occlusion. Right internal carotid artery: Moderate calcific atherosclerotic disease of the right carotid bulb resulting in mild stenosis. Right external carotid artery: No occlusion or stenosis of the origin. Left common carotid artery: No stenosis. No dissection or occlusion. Left internal carotid artery: No stenosis of the extracranial segment. No dissection or occlusion. Left external carotid artery: No occlusion or stenosis of the origin. Right vertebral artery: No stenosis. No dissection or occlusion. Left vertebral artery: No stenosis. No dissection or occlusion. Soft tissues: Normal. No significant soft tissue swelling. Bones/joints: No acute fracture. IMPRESSION: Moderate calcific atherosclerotic disease of the right carotid bulb resulting in mild stenosis. REFERENCES: NASCET CRITERIA. The degree of stenosis in the cervical segment of the internal carotid artery is based on NASCET criteria. Normal is no stenosis. Mild is less than 50% stenosis. Moderate is 50-69% stenosis. Severe is 70% to 99% stenosis. Total occlusion is no detectable patent lumen.
--- NOTE | 2025-02-07 18:21 | CT_ITS ---
PROCEDURE INFORMATION: Exam: CT Head Without Contrast Exam date and time: 02/07/2025 7:36 PM Age: 59 years old Clinical indication: Dizziness; Additional info: Dizziness, loss of balance TECHNIQUE: Imaging protocol: Computed tomography of the head without contrast. Radiation optimization: All CT scans at this facility use at least one of these dose optimization techniques: automated exposure control; mA and/or kV adjustment per patient size (includes targeted exams where dose is matched to clinical indication); or iterative reconstruction. COMPARISON: CT HEAD/BRAIN WO CON 02/21/2022 10:07 PM FINDINGS: Brain: White matter hypoattenuating foci are present which can be seen with small-vessel disease, prior infectious/inflammatory events, or prior TBI. No hyperattenuating foci are identified to suggest acute intracranial hemorrhage. Cerebral ventricles: No ventriculomegaly. Paranasal sinuses: Visualized sinuses are unremarkable. No fluid levels. Mastoid air cells: Visualized mastoid air cells are well aerated. Bones: Unremarkable. No acute fracture. Soft tissues: Unremarkable. IMPRESSION: 1. White matter hypoattenuating foci are present which can be seen with small-vessel disease, prior infectious/inflammatory events, or prior TBI. 2. No hyperattenuating foci are identified to suggest acute intracranial hemorrhage.
--- NOTE | 2025-02-07 18:21 | XR_ITS ---
PROCEDURE INFORMATION: Exam: XR Chest Exam date and time: 02/07/2025 7:42 PM Age: 59 years old Clinical indication: Shortness of breath TECHNIQUE: Imaging protocol: Radiologic exam of the chest. Views: 1 view. COMPARISON: CR XR CHEST PORTABLE 04/18/2024 8:03 PM FINDINGS: Lungs: Unremarkable. No consolidation. Pleural spaces: Unremarkable. No pleural effusion. No pneumothorax. Heart/Mediastinum: Unremarkable. No cardiomegaly. Bones/joints: Unremarkable. IMPRESSION: No acute findings.
--- NOTE | 2025-02-07 18:24 | [facility].EDGENADL ---
Discharge Plan Disposition Patient Disposition: Home, Self-Care Prescriptions Prescriptions: New meclizine 25 mg tablet 25 mg PO TID PRN (Reason: dizziness) Qty: 30 0RF No Action vitamin [id number] 0.5-1 mg tablet 1 tab PO DAILY 90 Days Qty: 90 1RF (DME) blood pressure monitor [Blood Pressure Kit] Kit See Rx Instructions .Route Qty: 1 0RF Rx Instructions: As directed (DME) lancets [OneTouch Delica Plus Lancet] 33 gauge misc See Rx Instructions .ROUTE .COMPLEX Qty: 100 9RF Dose Instruction: DIRECTED Rx Instructions: DIRECTED cholecalciferol (vitamin D3) [Vitamin D3] 50 mcg (2,000 unit) capsule 50 mcg PO DAILY Qty: 90 3RF Humalog KwikPen Insulin 200 unit/mL (3 mL) insulin pen 30 unit SQ TID oxycodone 5 mg tablet 5 mg PO Q6HP PRN (Reason: Moderate Pain (4-6)) Qty: 11 0RF insulin glargine [Lantus Solostar U-100 Insulin] 100 unit/mL (3 mL) insulin pen 45 unit SQ BID clonazepam [Klonopin] 0.5 mg tablet 0.5 mg PO DAILY PRN (Reason: anxiety) Qty: 12 0RF Mounjaro 2.5 mg/0.5 mL pen injector SQ aspirin 81 mg tablet,delayed release (DR/EC) 81 mg PO DAILY Qty: 100 3RF losartan 25 mg tablet 25 mg PO DAILY Qty: 90 3RF metoprolol succinate 50 mg tablet extended release 24 hr 25 mg PO HS Qty: 90 1RF simvastatin 40 mg tablet 40 mg PO HS Qty: 90 3RF (DME) FreeStyle Jayshree 3 [place] Misc See Rx Instructions .Route Qty: 1 2RF Rx Instructions: As directed or bid (DME) FreeStyle Jayshree 3 Sensor Device See Rx Instructions .Route Qty: 4 3RF Rx Instructions: As directed or bid (DME) OneTouch Ultra Test Strip See Rx Instructions .ROUTE .COMPLEX Qty: 100 1RF Dose Instruction: USE TO CHECK BLOOD SUGAR THREE TIMES DAILY Rx Instructions: USE TO CHECK BLOOD SUGAR THREE TIMES DAILY zaleplon 5 mg capsule 5 mg PO QHS Qty: 30 3RF (DME) pen needle, diabetic [Pen Needle] 32 gauge x 5/32 needle See Rx Instructions .ROUTE .COMPLEX Qty: 100 5RF Dose Instruction: USE TO INJECT TWICE DAILY Rx Instructions: USE TO INJECT TWICE DAILY pantoprazole 40 mg tablet,delayed release (DR/EC) 40 mg PO DAILY Qty: 30 5RF duloxetine 60 mg capsule,delayed release(DR/EC) 60 mg PO HS Qty: 90 0RF ezetimibe 10 mg tablet 10 mg PO DAILY Qty: 90 1RF amitriptyline 25 mg tablet 25 mg PO DAILY Qty: 90 0RF estradiol [Estrace] 2 mg tablet 8 mg PO DAILY Qty: 90 0RF potassium chloride [K-Tab] 20 mEq tablet extended release 20 meq PO DAILY PRN (Reason: take with lasix) Qty: 90 3RF furosemide [Lasix] 40 mg tablet 40 mg PO DAILY PRN (Reason: edema) Qty: 30 2RF pregabalin 150 mg capsule 150 mg PO TID 30 Days Qty: 90 2RF hydroxyzine HCl 25 mg tablet See Rx Instructions .ROUTE .COMPLEX Qty: 90 11RF Dose Instruction: TAKE 1 TABLET EVERY 8 HOURS NEEDED FOR ITCHING Rx Instructions: TAKE 1 TABLET EVERY 8 HOURS NEEDED FOR ITCHING Vitamin C 100 mg Tablet 100 mg PO DAILY ondansetron HCl 4 mg tablet 4 mg PO Q8H PRN (Reason: nausea and vomiting) 5 Days Qty: 30 0RF Referrals Follow up/Referrals: Julio C Rogel APRN [Primary Care Provider, Family Practice] - See instructions Clinical Impressions Clinical Impression: Diarrhea, Dizziness Print Language Print Language: Tajik Discharge ED Provider: Chavo Pizano Adult HPI General Chief complaint: Weakness Stated complaint: dizzy,diarrhea , weakness Time Seen by Provider: 02/07/25 18:07 Mode of Arrival: Wheelchair Source of Information: Patient Description of Symptoms (Recalled from ER Triage Doc. by RN): Pt presents for evaluation of generalized weakness, diarrhea, and dizziness x 2 days. Pt reports BGL is 156 on monitor History of Present Illness HPI narrative: Ewa Guallpa is a 59F with a history of bilateral peripheral vision loss secondary to retinal detachment status postsurgical repair, migraine headaches, diabetes mellitus, hypertension, hyperlipidemia, , bilateral Charcot foot status post multiple surgeries, hysterectomy, cholecystectomy who presents to the emergency department for complaints of dizziness as well as abdominal pain and diarrhea. Patient states that started yesterday, she has had approximately 7 episodes of nonbloody diarrhea as well as abdominal pain. She denies any nausea or vomiting. She denies any chest pain but does state that she has some shortness of breath mostly with exertion. She denies any cardiac issues in the past. She states that she has been dizzy constantly, worse with sitting up and lying down. She states that she has almost fallen multiple times and feels off balance. She denies any history of strokes. Related Data Home Medications ?Medication ?Instructions ?Recorded ?Confirmed ascorbic acid (vitamin C) 100 mg 100 mg PO DAILY 08/28/22 11/26/24 tablet (Vitamin C) insulin lispro 200 unit/mL (3 mL) 30 unit SQ TID 04/09/24 11/26/24 subcutaneous pen (Humalog KwikPen U-200 Insulin) insulin glargine 100 unit/mL (3 45 unit SQ BID 07/23/24 11/26/24 mL) subcutaneous pen (Lantus Solostar U-100 Insulin) tirzepatide 2.5 mg/0.5 mL mg SQ 11/26/24 11/26/24 subcutaneous pen injector (Jose) Previous Rx's ?Medication ?Instructions ?Recorded vitamin B12 0.5 mg-folic acid 1 mg 1 tab PO DAILY Supplement 90 days 02/07/23 tablet #90 tabs blood pressure monitor (Blood #1 ea 06/13/23 Pressure Kit) lancets 33 gauge (OneTouch Delica #100 ea 06/27/23 Plus Lancet) blood-glucose sensor (FreeStyle #4 ea 09/03/23 Jayshree 3 Sensor device) blood-glucose,building mover,cont #1 ea 09/03/23 (FreeStyle Jayshree 3 [place]) blood sugar diagnostic (OneTouch #100 ea 01/20/24 Ultra Test strips) cholecalciferol (vitamin D3) 50 50 mcg PO DAILY supplement #90 04/02/24 mcg (2,000 unit) capsule (Vitamin caps D3) oxycodone 5 mg tablet 5 mg PO Q6HP PRN Moderate Pain 04/09/24 (4-6) #11 tabs clonazepam 0.5 mg tablet (Klonopin) 0.5 mg PO DAILY PRN anxiety #12 09/08/24 tabs ondansetron HCl 4 mg tablet 4 mg PO Q8H PRN nausea and 09/17/24 vomiting 5 days #30 tabs pen needle, diabetic 32 gauge x #100 ea 11/01/24 (Pen Needle) zaleplon 5 mg capsule 5 mg PO QHS #30 caps 11/01/24 pantoprazole 40 mg tablet,delayed 40 mg PO DAILY #30 tabs 11/25/24 release aspirin 81 mg tablet,delayed 81 mg PO DAILY #100 tabs 11/26/24 release losartan 25 mg tablet 25 mg PO DAILY #90 tabs 11/26/24 metoprolol succinate 50 mg 25 mg (1/2 x 50 mg) PO HS #90 tabs 11/26/24 tablet,extended release 24 hr simvastatin 40 mg tablet 40 mg PO HS #90 tabs 11/26/24 amitriptyline 25 mg tablet 25 mg PO DAILY #90 tabs 11/27/24 duloxetine 60 mg capsule,delayed 60 mg PO HS #90 caps 11/27/24 release estradiol 2 mg tablet (Estrace) 8 mg (4 x 2 mg) PO DAILY #90 tabs 11/27/24 ezetimibe 10 mg tablet 10 mg PO DAILY #90 tabs 11/27/24 potassium chloride 20 mEq 20 meq PO DAILY PRN take with 12/01/24 tablet,extended release (K-Tab) lasix #90 tabs furosemide 40 mg tablet (Lasix) 40 mg PO DAILY PRN edema #30 tabs 12/03/24 pregabalin 150 mg capsule 150 mg PO TID pain 30 days #90 caps 12/10/24 hydroxyzine HCl 25 mg tablet See Rx Instructions .Route 01/07/25 .COMPLEX #90 tabs meclizine 25 mg tablet 25 mg PO TID PRN dizziness #30 tabs 02/07/25 Allergies Allergy/AdvReac Type Severity Reaction Status Date / Time ranitidine (RANITIDINE) Allergy Severe Anaphylaxis Verified 11/26/24 10:57 vancomycin Allergy Severe Anaphylaxis Verified 11/26/24 10:57 adhesive tape (ADHESIVE TAPE) Allergy Intermediate I-RASH Verified 11/26/24 10:57 bupropion (BUPROPION) Allergy Intermediate I-HIVES Verified 11/26/24 10:57 butorphanol (BUTORPHANOL) Allergy Intermediate I-HIVES Verified 11/26/24 10:57 calcium (From DHEA) Allergy Intermediate I-HIVES Verified 11/26/24 10:57 calcium carbonate (From DHEA) Allergy Intermediate I-HIVES Verified 11/26/24 10:57 codeine (CODEINE) Allergy Intermediate I-HIVES Verified 11/26/24 10:57 hydromorphone (HYDROMORPHONE) Allergy Intermediate I-HIVES Verified 11/26/24 10:57 prasterone (DHEA) (From DHEA) Allergy Intermediate I-HIVES Verified 11/26/24 10:57 sumatriptan (From IMITREX) Allergy Intermediate I-HIVES Verified 11/26/24 10:57 morphine (MORPHINE) Allergy Unknown HEADACHE Verified 11/26/24 10:57 oxycodone (From Percocet) Allergy Hives Verified 11/26/24 10:57 prochlorperazine (From Allergy Unknown Verified 11/26/24 10:57 Compazine) allergy reaction rizatriptan (From Maxalt) Allergy Unknown Verified 11/26/24 10:57 allergy reaction Penicillins AdvReac upset Verified 11/26/24 10:57 stomach PFSH PFSH Disclaimer: The information contained in this section may have been updated after the patient was seen, as this information can be updated by other users. Medical History Normal coronary arteries Admitted for observation Hypotension Hypoglycemia ELINA (acute kidney injury) COVID-19 Colon cancer screening Insomnia Post op infection Ena-prosthetic fracture of proximal tibia Complication of external fixation device with internal components Charcot's joint of foot Stage 3 chronic kidney disease Diastolic dysfunction Abnormal findings on diagnostic imaging of heart and coronary circulation Atypical angina delivery delivered Anxiety and depression Asthma HLD (hyperlipidemia) HTN (hypertension) Diabetes Allergic rhinitis Dyspnea on exertion Left foot pain Migraine headache Neuropathy Nonunion of joint fusion Sprain of anterior talofibular ligament of left ankle Tear of peroneal tendon Dizziness Improved, denies further syncope. Positive tilt table test. BP dropped to 90/30 after 15 minutes with minimal compensatory tachycardia. Amitriptyline, furosemide, spironolactone have been discontinued with symptomatic improvement. She takes furosemide as needed only. 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 current occupational exposures/hazards: No caffeine: Yes Have you lived/traveled outside [place] in past 30 days?: No Contact w/someone who lives/traveled outside US past 30 days?: No Exposure to someone with infectious disease in past 14 days?: No Do you have a fever (greater than 100.4 F or 38 C)?: No Have you tested positive for COVID-19?: No Exposed to someone with COVID-19 in past 14 days?: No Do you have a sore throat?: No Do you have a cough?: No Do you have any weakness?: No Do you have any diarrhea?: No Are you experiencing any unusual bleeding?: No Do you have any muscle aches/pain?: No Do you have any abdominal pain?: No Are you experiencing loss of taste or smell?: No Other Medical History Have you received the Flu Vaccine for this season: No Have you received the Pneumonia Vaccine: Yes ROS Obtained: Yes Systems reviewed as appropriate & no additional complaints except as documented Physical Exam General General appearance: alert and in no apparent distress Head Head exam: atraumatic Eye Eye exam: Present normal appearance, PERRL, EOMI and other (No nystagmus) ENT ENT exam: Present normal external ear exam Neck Neck exam: Present full ROM Chest Chest inspection: Present symmetric chest wall rise Respiratory Respiratory exam: Present normal lung sounds bilaterally; Absent respiratory distress, wheezes or stridor Cardiovascular Cardiovascular exam: Present regular rate and normal rhythm Abdominal Exam Abdominal exam: Present soft and tenderness (Lower abdominal tenderness); Absent guarding or rigidity Extremities Exam Extremities exam: Present normal inspection Back Exam Back exam: Present normal inspection Neurological Exam Neurological exam: Present alert, oriented X3, CN II-XII intact and other (Mild difficulty with finger-nose testing with the left upper extremity, however patient notes that she has significant peripheral vision loss and feels like this is contributing); Absent motor sensory deficit Psychiatric Psychiatric exam: Present normal affect Skin Skin exam: Present warm and dry Medical Decision Making Medical Records Screening: Per USPSTF and CDC recommendations, given the prevalence of disease in our region, it is our hospital?s policy to screen for HIV and viral Hepatitis for all patients aged 18 and over and those with ongoing risk factors. Panchito Inquiry Pt receiving controlled substance: No Vital Signs: 02/07/25 17:44 02/07/25 18:01 02/07/25 18:30 Temperature 98.3 F Temperature Source Oral Pulse Rate 82 Pulse Rate [Right] 90 Respiratory Rate 18 12 Blood Pressure 161/80 H 138/71 Blood Pressure [Right Arm] 133/56 L Blood Pressure Mean [Right Arm] 81 Blood Pressure Source [Right Arm] Automatic Cuff Blood Pressure Position [Right Arm] Sitting 02 Sat by Pulse Oximetry 99 98 98 Oxygen Delivery Method Room Air 02/07/25 19:00 02/07/25 21:07 Temperature 97.9 F Temperature Source Pulse Rate 92 H 77 Pulse Rate [Right] Respiratory Rate 17 18 Blood Pressure 123/63 141/78 H Blood Pressure [Right Arm] Blood Pressure Mean [Right Arm] Blood Pressure Source [Right Arm] Blood Pressure Position [Right Arm] 02 Sat by Pulse Oximetry 98 Oxygen Delivery Method Room Air Lab Data Lab Results 02/07/25 18:24: WBC 9.1, RBC 4.74, Hgb 14.2, Hct 41.7, MCV 88.0, MCH 30.0, MCHC 34.1, RDW 13.0, Plt Count 226, MPV 11.2 H, Neut % (Auto) 50.7, Lymph % (Auto) 38.1, [place] % (Auto) 8.5, Eos % (Auto) 2.3, Baso % (Auto) 0.2, Neut # (Auto) 4.6, Lymph # (Auto) 3.5, [place] # (Auto) 0.8, Eos # (Auto) 0.2, Baso # (Auto) 0.0, PT 10.2, INR 0.91, APTT 22.9, Sodium 133 L, Potassium 3.5, Chloride 95 L, Carbon Dioxide 30, Anion Gap 11.5, BUN 16, Creatinine 1.30 H, Estimated Creat Clear 81, Estimated GFR 42 L, Est GFR ( Amer) 51 L, Glucose 155 H, Lactate 2.0, Calcium 8.5, Magnesium 1.9, Total Bilirubin 0.4, AST 32, ALT 14, Alkaline Phosphatase 131 H, Troponin I < 0.01, NT-Pro-B Natriuret Pep < 20.0, Total Protein 7.0, Albumin 3.5, Globulin 3.5 H, Albumin/Globulin Ratio 1.0 L 02/07/25 19:10: Urine Color Yellow, Urine Appearance Clear, Urine pH 6.0, Ur Specific [place] <= 1.005, Urine Protein Negative, Urine Glucose (UA) 2+, Urine Ketones Negative, Urine Blood Negative, Urine Nitrate Negative, Urine Bilirubin Negative, Urine Urobilinogen 0.2, Ur Leukocyte Esterase Negative, Urine RBC None, Urine WBC None, Ur Squamous Epith Cells Occasional, Urine Bacteria None 02/07/25 18:24 02/07/25 18:24 Orders (Tests/Meds): ED MEDICATIONS Discontinued Medications Generic Name Dose Route Start Last Admin Trade Name Freq PRN Reason Stop Dose Admin Lactated Ringer's 1,000 mls @ 999 mls/hr 02/07/25 18:21 02/07/25 20:18 Lactated Ringer's 1000 Ml Bag IV 02/07/25 19:21 Infused .Q1H1M ONE Infusion Iopamidol 155 ml 02/07/25 19:35 02/07/25 19:36 Iopamidol-370 (76%);100ml Bottle IV 02/07/25 19:36 155 ml ONCE ONE Administration Meclizine HCl 25 mg 02/07/25 21:06 02/07/25 21:13 Meclizine 25mg Tablet PO 02/07/25 21:07 25 mg ONCE ONE Administration Sodium Chloride 40 ml 02/07/25 19:35 02/07/25 19:36 0.9 % Sodium Chloride 50 Ml Vial IV 02/07/25 19:36 40 ml ONCE ONE Administration Sodium Chloride 10 ml 02/07/25 19:35 02/07/25 19:36 Sodium Chloride 0.9% 10ml Syr (Rad Only) IV 03/09/25 19:34 10 ml NEEDED PRN Administration Maintain IV Site ORDERS Category Date Time Status CT abdomen pelvis w con Stat Cat Scan 02/07/25 18:[address] angio head Stat Cat Scan 02/07/25 18:[address] angio neck Stat Cat Scan 02/07/25 18:[address] head/brain wo con Stat Cat Scan 02/07/25 18:21 Completed CXR --portable [XR chest portable] Stat Exams 02/07/25 18:21 Completed BNP [NT Pro Brain Natriuretic Pep.] Stat Lab 02/07/25 18:24 Completed CBC w/Auto Diff [Complete Blood Count Auto Diff] Stat Lab 02/07/25 18:24 Completed CMP [Comprehensive Metabolic Panel] Stat Lab 02/07/25 18:24 Completed Lactic Acid Stat Lab 02/07/25 18:24 Completed Magnesium Stat Lab 02/07/25 18:24 Completed PT INR [Prothrombin Time INR] Stat Lab 02/07/25 18:24 Completed PTT [Activated Partial Thrombo Time] Stat Lab 02/07/25 18:24 Completed Troponin I Stat Lab 02/07/25 18:24 Completed UA [Urinalysis and Microscopic] Stat Lab 02/07/25 19:10 Completed ECG Data Tracing #1: I reviewed this ECG and interpreted as documented below: Normal sinus rhythm. No ST elevation or depression. QTc normal at 423 Medical Decision Narrative: Ewa Guallpa is a 59F with a history of bilateral peripheral vision loss secondary to retinal detachment status postsurgical repair, migraine headaches, diabetes mellitus, hypertension, hyperlipidemia, , bilateral Charcot foot status post multiple surgeries, hysterectomy, cholecystectomy who presents to the emergency department for complaints of dizziness as well as abdominal pain and diarrhea. Patient states that started yesterday, she has had approximately 7 episodes of nonbloody diarrhea as well as abdominal pain. She denies any nausea or vomiting. She denies any chest pain but does state that she has some shortness of breath mostly with exertion. She denies any cardiac issues in the past. She states that she has been dizzy constantly, worse with sitting up and lying down. She states that she has almost fallen multiple times and feels off balance. She denies any history of strokes. On arrival, patient is hemodynamically stable, in no acute distress, afebrile, breathing comfortably on room air with oxygen saturation 99%. Physical exam, stated above, revealed a nontoxic-appearing female in no distress. Cranial nerves II through XII are intact. Extraocular movements are intact. Pupils equal round and reactive. 5 out of 5 strength and sensation bilateral upper and lower extremities. She has some difficulty with finger-nose testing but notes that she has complete loss of peripheral vision on both sides and feels that this is likely contributing to that. Otherwise neuroexam is completely unremarkable. Abdomen is soft with mild tenderness but no significant guarding or peritonitis. Cardiopulmonary exam without murmurs, rubs. Differential diagnosis includes, but is not limited to: Dehydration, orthostatic hypotension, peripheral vertigo, stroke, electrolyte derangement, ACS, among others. The most morbid conditions were considered and workup was based on these. Workup in the emergency department included: EKG, CT abdomen pelvis with contrast, CTA head and neck, CT head without, chest x-ray, troponin, PT/INR, PTT, BNP, CBC with differential, CMP, lactic acid, magnesium level, urinalysis. Patient was given crystalloid fluids Chest x-ray interpreted by me personally. No focal consolidation, no pneumothorax, no widened mediastinum, no enlargement of the cardiac silhouette. Unremarkable chest x-ray. See radiology report for details. EKG without evidence of ischemia. See interpretation above. CT imaging was interpreted by me personally. No intracranial hemorrhage, mass or midline shift. No large vessel occlusion or significant stenosis. Chronic changes as mentioned in radiology report. See report for details. CT abdomen pelvis shows no acute findings. See report for details. Patient's laboratory workup is grossly unremarkable nonactionable. No leukocytosis, no anemia, platelets within normal limits. Coagulation studies unremarkable and nonactionable. Mild hyponatremia at 133 but electrolytes otherwise within normal limits. Creatinine is mildly elevated at 1.3, however this is chronic and at her baseline. Glucose of 155. Lactate normal at 2. Liver enzymes and bilirubin within normal limits. Initial troponin less than 0.01. NT proBNP within normal limits at less than 20. Urine without blood or evidence of infection. On reassessment, patient remains in stable condition. I do feel that her dizziness is likely related to dehydration in the setting of diarrhea. I will give patient dose of meclizine here and will prescribe her meclizine to go home with. I encouraged her to continue hydrating to see if this improves her dizziness and to follow-up with her primary care physician. Return precautions were given. All questions were answered. She demonstrated understanding and was in agreement this plan. She was then discharged from the emergency department in stable condition. Procedures Limited Ultrasound Indication:: Indication:: Ultrasound-guided line placement Indication: - Difficult IV access, numerous unsuccessful pokes Identified structures: - Cephalic vein, basilic vein Location/access site: - Cephalic vein Vessel patency: - Patent Direct visualization? - Yes Impression: Successful 18g catheter in left upper extremity cephalic vein Images were not saved to permanent archive The study was technically adequate Critical Care Critical Care Time Critical Care Time: No
[2025-02-07 18:30] VITALS: BP 138/71; RESP 12; O2SAT 98
[2025-02-07] MEDS: LACTATED RINGERS 1000ML 1,000 ML 999 ML IV (18:30)
[2025-02-07 18:36] LABS: Hematocrit 41.7 % (37.0-47.0); Hemoglobin 14.2 g/dL (12.2-16.2); Immature Granulocytes % 0.2 %; Mean Corpuscular HGB Conc 34.1 g/dL (31.8-35.4); Mean Corpuscular Hemoglobin 30.0 pg (27.0-31.2); Mean Corpuscular Volume 88.0 fl (81-99); Nucleated Red Blood Cells % 0 %; Platelet Count 226 K/mm3 (142-424); Red Blood Count 4.74 M/mm3 (4.20-5.40); Red Cell Distribution Width-SD 41.8 fL; White Blood Count 9.1 K/mm3 (4.8-10.8)
[2025-02-07 18:39] LABS: Albumin Level 3.5 g/dl (3.5-5.0); Chloride 95 mmol/L (98-107); Potassium 3.5 mmoL/L (3.5-5.1); Sodium 133 mmol/L (136-145)
[2025-02-07 18:42] LABS: Alanine Aminotransferase 14 U/L (12-78); Albumin/Globulin Ratio 1.0 (1.1-1.8); Alkaline Phosphatase 131 U/L (38-126); Anion Gap 11.5 mEq/L (5-15); Aspartate Amino Transferase 32 U/L (14-36); Bilirubin,Total 0.4 mg/dl (0.2-1.3); Blood Urea Nitrogen 16 mg/dl (7-17); Calcium 8.5 mg/dl (8.4-10.2); Carbon Dioxide 30 mmol/L (22.0-30.0); Creatinine Clearance Estimated 81 mL/min (50-200); Creatinine,Serum 1.30 mg/dl (0.52-1.04); Estimated Glomerular Filt Rate 42 ml/min (>60); GFR (African American) 51 ML/MIN (>60); Globulin 3.5 g/dL (1.3-3.2); Glucose 155 mg/dl (74-100); Magnesium 1.9 mg/dl (1.6-2.3); Total Protein,Serum 7.0 g/dl (6.3-8.2)
[2025-02-07 18:58] LABS: NT Pro Brain Natriuretic Pep. < 20.0 pg/mL (0-125)
[2025-02-07 19:00] VITALS: BP 123/63; PULSE 92; RESP 17; O2SAT 98
[2025-02-07 19:03] LABS: Activated Partial Thrombo Time 22.9 seconds (22.8-30.6); INR 0.91 (0.9-1.1); Prothrombin Time 10.2 seconds (10.1-12.5); Troponin I < 0.01 ng/ml (0.00-0.034)
--- OUTSIDE RECORDS SUMMARY | 2025-02-07 19:07 | XMS_ITS | CCD ---
Author Name Rita Reaves NP Address [address] [place] [address] Phone Organization [facility] Phone Care Team Providers Care Railroad Auditor Name Role Phone Rita Reaves NP Primary Care Provider Unavaila ble Unavailable Chronic Care Management Unavaila ble Summary Purpose DataExchange Insurance Providers Payer name Policy type / Coverage type Covered green party ID Effective Begin Date Effective End Date [employer] PLAN [id number] Unknown Family History Family History data not found Social History Social History Element Codes Description Effec tive Dates Marital status Unknown 03/17/2024 Number of children Unknown 2 Living arrangements Unknown House 03/17/20 24 Number of children in household Unknown 0 03/17/2024 Number of adults in household Unknown 2 03/17/2024 Education level Unknown College Graduate 03/17/20 24 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 Tobacco history Unknown Never Used 03/17/[address]: [id number] Never drinks alco hol 03/17/2024 Illegal/Recreational drug history Unknown *Has never used illegal/recreational drugs 03/17/2024 Allergies, Adverse Reactions, Alerts Substance Reaction Codes Entered Date Inactivated Date Status OPIOID ANALGESICS Unknown 04/13/2016 No Inactive Date Active Pollen *not specified Unknown 03/17/2024 No Inactive Da te Active SUMATRIPTAN/NARATRIPTAN Unknown 04/13/2016 No In active Date Active OPIOID ANALGESICS Unknown 04/13/2016 No Inactive Date Active OPIOID ANALGESICS Unknown 04/13/2016 No Inactive Date Active OPIOIDS - MORPHINE ANALOGUES Unknown 12/21/2021 No Inactive Date Active *No known food allergies Unknown 03/17/2024 No I nactive Date Active PHENOTHIAZINES Unknown 04/13/2016 No Inactive Da te Active Problems Condition Codes Effective Dates Condition St atus Grief at loss of child ICD-10: F43.21 ICD-9: 309.0 09/10/2024 Active Major depressive disorder, recurrent, moderate ICD-10: F33.1 ICD-9: 296.32 03/17/2024 Active Type 2 diabetes mellitus wit h diabetic neuropathic arthropathy ICD-10: E11.610 ICD-9: 250.60 10/01/2024 Active Disappearance and of f amily member ICD-10: Z63.4 09/10/2024 Active Type 2 diabetes mellitus wit h other circulatory complication, with long-term current use of insulin ICD-10: E11.59 ICD-9: 250.70 03/17/2024 Active Loosening of external fixation pin ICD-1 0: T84.89XA ICD-9: 996.49 08/09/2024 Active S/P foot surgery, right ICD-10: Z98.890 ICD-9: V45.89 03/17/2024 Active Type 2 diabetes mellitus wit h proliferative diabetic retinopathy without macular edema, bilateral ICD-10: E11.3593 06/26/2024 Active (R53.1-780.79) Weakness ICD-10: R53.1 ICD-9: 780.79 03/17/2024 Active (Z91.81-V15.88) History of falling ICD-1 0: Z91.81 ICD-9: V15.88 03/17/2024 Active (Z99.3-V46.3) Dependence on wheelchair ICD-10: Z99.3 ICD-9: V46.3 03/17/2024 Active HTN (hypertension) ICD-10: I10 ICD-9: 401.9 03/17/2024 Active Major depressive disorder, recurrent, moderate ICD-10: F33.1 05/22/2024 Active Morbid (severe) obesity due to excess calories ICD-10: E66.01 05/22/2024 Active Type 2 diabetes mellitus wit h diabetic neuropathic arthropathy ICD-10: E11.610 05/22/2024 Active Acute non-recurrent maxillar y sinusitis ICD-10: J01.00 ICD-9: 461.0 04/14/2024 Active Leg pain ICD-10: M79.606 ICD-9: 729.5 04/14/2024 Active (R26.9-781.2) Unspecified abnormalities of gait and mobility ICD-10: R26.9 ICD-9: 781.2 03/17/2024 Active Charcot's joint, left ankle and foot ICD-10: M14.672 ICD-9: 094.0 03/17/2024 Active Encounter for general adult medical examination without abnormal findings ICD-10: Z00.00 ICD-9: V70.9 03/17/2024 Active Encounter for general adult medical examination with abnormal findings ICD-10: Z00.01 ICD-9: V70.0 03/17/2024 Active snf (current) use of insulin ICD-10: Z79.4 03/17 Active Abnormal gait ICD-10: R26.9 03/21/2017 Active Anxiety ICD-10: F41.9 12/28/2021 Active Atherosclerotic heart diseas e of [place] coronary artery without angina pectoris ICD-10: I25.10 12/28/2021 Active Benign paroxysmal vertigo, bilateral ICD-10: H81.13 12/28/2021 Active Charcot's joint, left ankle and foot ICD-10: M14.672 12/28/2021 Active Depression ICD-10: F32.A 12/28/2021 Active Disorder of peripheral nervo us system ICD-10: G64 03/21/2017 Active Generalized anxiety disorder ICD-10: F41.1 12/28/2021 Active GERD (gastroesophageal reflu x disease) ICD-10: K21.9 12/28/2021 Active HTN (hypertension) ICD-10: I10 12/28/2021 Active Leg pain ICD-10: M79.606 03/21/2017 Active Migraine headache ICD-10: G43.909 12/28/2021 Active Obstructive sleep apnea (toro lt) (pediatric) ICD-10: G47.33 12/28/2021 Active Paresthesia ICD-10: R20.2 03/21/2017 Active Patient not seen ICD-10: UXZ.01 ICD-9: UXZ.01 01/29/2024 Active Seasonal allergic rhinitis ICD-10: J30.2 12/28/2021 Active Type 2 diabetes mellitus ICD-10: E11.9 03/21/2017 Ac tive Vitamin D deficiency ICD-10: E55.9 12/28/2021 Active Medications Medication Codes Instructions Start Date Stop Date Status Fill Instructions benzonatate 100 mg capsule RxNorm: 277630 Take 1 Capsule(s) Oral three times a day 4 025 Inactive Flonase Sensimist 27.5 mcg/actuation nasal spray,suspension RxNorm: 2820348 Inhale 1 [place] Nasal two times a day 4 025 Inactive duloxetine 60 mg capsule,delayed release RxNorm: 520879 Take 1 Capsule(s) Oral once daily 4 026 Active ezetimibe 10 mg tablet RxNorm: 252792 Take 1 Tablet(s) Oral every day 026 Active Lantus Solostar U-100 Insulin 100 unit/mL (3 mL) subcutaneous pen RxNorm: 153906 Administer 30 Unit(s) Subcutaneous two times a day 4 025 Inactive atorvastatin 20 mg tablet RxNorm: 342818 Take 1 Tablet(s) Oral every night at bedtime 4 026 Active losartan 50 mg tablet RxNorm: 440194 Take 1 Tablet(s) Oral every day 026 Active triamterene 37.5 mg-hydrochlorothia zide 25 mg capsule RxNorm: 874390 Take 1 Tablet(s) Oral every day 4 025 Inactive topiramate 100 mg tablet RxNorm: 394836 Take 1 Tablet(s) Oral two times a day 4 025 Inactive doxycycline hyclate 100 mg capsule RxNorm: 7021726 Take 1 Capsule(s) Oral two times a day 4 024 Inactive pantoprazole (PROTONIX) 40 MG EC tablet RxNorm: 372888 Take 1 Tablet(s) Oral every day 2 No Stop Date Active estradiol (ESTRACE) 2 MG tablet RxNorm: 779181 Take 1 Tablet(s) Oral every day 2 No Stop Date Active montelukast (SINGULAIR) 10 MG tablet RxNorm: 429950 Take 1 Tablet(s) Oral every day 2 No Stop Date Active metoprolol succinate XL (TOPROL-XL) 50 MG 24 hr tablet RxNorm: 288867 TAKE 1 ORAL TABLET ONCE A DAY 2 No Stop Date Active Trulicity 1.5 MG/0.5ML solution pen-injector RxNorm: 1267543 INJECT 1 PREFILLED SYRINGE ONCE WEEKLY 2 024 Inactive Januvia 100 MG tablet RxNorm: 743081 Take 1 Tablet(s) Oral every day 2 024 Inactive pregabalin (LYRICA) 150 MG capsule RxNorm: 129039 Take 1 Capsule(s) Oral three times a day 2 No Stop Date Active amitriptyline (ELAVIL) 25 MG tablet RxNorm: 628647 Take 1 Tablet(s) Oral HS 2 No Stop Date Active spironolactone (ALDACTONE) 25 MG tablet RxNorm: 255192 Take 1 Tablet(s) Oral every day 2 024 Inactive escitalopram (LEXAPRO) 20 MG tablet RxNorm: 112147 TAKE 1 TABLET BY MOUTH EVERY DAY. NEED FOLLOW UP 2 No Stop Date Active metFORMIN (GLUCOPHAGE) 1000 MG tablet RxNorm: 338349 Take 1 Tablet(s) Oral two times a day 2 024 Inactive lidocaine-EPINEPHr ine (XYLOCAINE W/EPI) 1 %-1:719061 injection 10 mL RxNorm: 9230434 inj 8 024 Inactive lidocaine (XYLOCAINE) 1 % injection 5 mL RxNorm: 7346697 inj 8 024 Inactive Medication Administered No Medication Administered data Results Observation Observation Code Item Item Code Result Date Service Location Hemoccult Screening Immunoassay G0328 Fecal Occult Blood Test (FOBT) Screening 36371-6 NO SPECIMEN RECEIVED 025 [facility] [address] [place] [address] [id number] OBIN 4548-4 Glyco HGB A1C 84591-9 9.9 % 025 [facility] [address] [place] [address] [id number] OBIN 4548-4 eAG 62272-8 237 mg/dL 025 [facility] [address] [place] [address] 54674 Hemoccult Screening Immunoassay G0328 Fecal Occult Blood Test (FOBT) Screening 33300-5 NO SPECIMEN RECEIVED 025 [facility] [address] [place] [address] 62072 ASSAY OF CREATININE 45977 GFR Estimated 83604-8 47 mL/min/1.73m2 025 [facility] [address] [place] [address] 32869 ASSAY OF CREATININE 29989 Creatinine 2160-0 1.3 mg/dL 025 [facility] [address] [place] [address] 37339 MICROALBUMIN (URINE) 33053 Microalbumin 29309-3 NO SPECIMEN RECEIVED mg/dL 025 [facility] [address] [place] [address] 02342 MICROALBUMIN (URINE) 45752 Microalbumin/Cr eatinine Ratio 17339-5 NO SPECIMEN RECEIVED MCG/MGCREAT 025 [facility] [address] [place] [address] 31496 MICROALBUMIN (URINE) 31943 Urine Creatinine 2161-8 NO SPECIMEN RECEIVED mg/dL 025 [facility] [address] [place] [address] 59916 URINALYSIS AUTO W/SCOPE 01303 Glucose 2345-7 >1000 mg/dL ++++ mg/dL 025 [facility] [address] [place] [address] 85716 URINALYSIS AUTO W/SCOPE 60103 Protein 20 mg/dL Trace mg/dL 025 [facility] [address] [place] [address] 88536 URINALYSIS AUTO W/SCOPE 91669 Bilirubin Negative mg/dL 025 [facility] [address] [place] [address] 57910 URINALYSIS AUTO W/SCOPE 00289 Urobilinogen Negative mg/dL 025 [facility] [address] [place] [address] 13787 URINALYSIS AUTO W/SCOPE 57781 Ph 7.00 025 [facility] [address] [place] [address] 12190 URINALYSIS AUTO W/SCOPE 22052 Blood Negative mg/dL 025 [facility] [address] [place] [address] URINALYSIS AUTO W/SCOPE 75318 Ketones Negative mg/dL 025 [facility] [address] [place] [address] URINALYSIS AUTO W/SCOPE 64566 Nitrite Negative 025 [facility] [address] [place] [address] URINALYSIS AUTO W/SCOPE 03557 Leukocytes Negative Marisa/uL 025 [facility] [address] [place] [address] URINALYSIS AUTO W/SCOPE 28393 Clarity Clear 025 [facility] [address] [facility] [place] [address] URINALYSIS AUTO W/SCOPE 98284 Specific [place] [address] [place] [address] Laboratory [address] [place] [address] URINALYSIS AUTO W/SCOPE 15869 Color Light-Yellow [address] [place] [address] Laboratory [address] [facility] [place] [address] URINALYSIS AUTO W/SCOPE 83683 White Blood Cell <1 /HPF #/HPF 025 [facility] [address] [place] [address] URINALYSIS AUTO W/SCOPE 59751 SQUAMOUS EPITHELIAL 1 /HPF #/HPF 025 [facility] [address] [facility] [place] [address] [id number] OBIN 4548-4 Glyco HGB A1C 57476-8 10.0 % [address] [place] [address] Laboratory [address] [place] [address] [id number] OBIN 4548-4 eAG 62852-0 240 mg/dL [address] [place] [address] Laboratory [address] [place] [address] Urine Culture and Sensitivity Reflexed from [facility] Urine Culture & Sensitivity CRITERIA NOT MET FOR URINE CULTURE AND SENSITIVITY TESTING 025 [facility] [address] [place] [address] Procedures Procedure Codes Date Most recent A1c = 9.0% CPT-4: 3046F 5 Most recent systolic blood pressure <130 mm Hg C PT-4: 3074F 10/01/2024 Most recent diastolic blood pressure < 80 mm hg CPT-4: 3078F 10/01/2024 Most recent A1c = 9.0% CPT-4: 3046F 5 Most recent A1c = 9.0% CPT-4: 3046F 5 Most recent systolic blood pressure 130 to 139 m m CPT-4: 3075F 07/30/2024 Most recent diastolic blood pressure < 80 mm hg CPT-4: 3078F 07/30/2024 Most recent A1c = 9.0% CPT-4: 3046F 5 MED LIST DOCD IN [facility] CPT-4: 1159F 06/30/2024 RVW MEDS BY RX/DR IN [facility] CPT-4: 1160F 2024 Discharge Meds Reconciled w/ Current Med list CP T-4: 1111F 06/30/2024 Most recent A1c = 9.0% CPT-4: 3046F 5 Most recent blood pressure >= 140 MM HG CPT-4: 3 077F 06/26/2024 Most recent diastolic blood pressure < 80 mm hg CPT-4: 307806/26/2024 MED LIST DOCD IN [facility] CPT-4: 115905/22/2024 RVW MEDS BY RX/DR IN [facility] CPT-4: 11602024 Functional Status Assessed CPT-4: 1170F 05/22 Screening for clinical depre ssion is negative, follow-up plan not required CPT-4: G8510 05/22/2024 Most recent systolic blood pressure <130 mm Hg C PT-4: 3074F 05/22/2024 Most recent diastolic blood pressure < 80 mm hg CPT-4: 307805/22/2024 MED LIST DOCD IN [facility] CPT-4: 115903/17/2024 RVW MEDS BY RX/DR IN [facility] CPT-4: 1160F 2023 Screening for clinical depre ssion is negative, follow-up plan not required CPT-4: G8510 03/17/2024 Fecal Occult Blood Test (FOBT) Screening CPT-4: G0328 Unknown Mammogram Screening (Bilateral) CPT-4: 67828 Unknown Q8M-Vmrlliojwgxtybe CPT-4: 04868 Unknown Fecal Occult Blood Test (FOBT) Screening CPT-4: G0328 Unknown Mammogram Screening (Bilateral) CPT-4: 80734 Unknown Z5W-Eksksevxqzezjtv CPT-4: 66417 Unknown Vital Signs Date Vital 10/01/2024 Blood Pressure 1: 110/62 Code: 8480-6 BMI: 39.9 Code: 14253-6 Heart Rate 1: 79 bpm Height: 5'5 Code: 8302-2 Respiratory Rate: 16 bpm SpO2: 95% Temperature: 36.4 (C) / 97.6 (F) Weight: 240 lbs Code: 95497-1 07/30/2024 Blood Pressure 1: 135/64 Code: 8480-6 BMI: 38.8 Code: 70122-9 Heart Rate 1: 61 bpm Height: 5'5 Code: 8302-2 Respiratory Rate: 16 bpm SpO2: 98% Temperature: 36.9 (C) / 98.4 (F) Weight: 233 lbs Code: 43216-7 06/26/2024 Blood Pressure 1: 140/72 Code: 8480-6 Blood Pressure 1: 180/78 Code: 8480-6 BMI: 38.8 Code: 30786-7 Heart Rate 1: 91 bpm Height: 5'5 Code: 8302-2 Respiratory Rate: 18 bpm SpO2: 97% Temperature: 36.9 (C) / 98.4 (F) Weight: 233 lbs Code: 32940-0 05/22/2024 Blood Pressure 1: 100/58 Code: 8480-6 BMI: 38.8 Code: 45262-4 Heart Rate 1: 86 bpm Height: 5'5 Code: 8302-2 Respiratory Rate: 18 bpm SpO2: 98% Temperature: 35.9 (C) / 96.7 (F) Weight: 233 lbs Code: 36504-5 04/14/2024 BMI: 40.4 Code: 95387-7 Heart Rate 1: 83 bpm Height: 5'5 Code: 8302-2 Respiratory Rate: 16 bpm SpO2: 98% Temperature: 35.9 (C) / 96.6 (F) Weight: 243 lbs Code: 41387-9 03/17/2024 Blood Pressure 1: 110/80 Code: 8480-6 BMI: 38.8 Code: 22030-4 Heart Rate 1: 61 bpm Height: 5'5 Code: 8302-2 Respiratory Rate: 16 bpm SpO2: 96% Temperature: 36.1 (C) / 97.0 (F) Weight: 233 lbs Code: 58362-2 Reason For Visit Reason For Visit Effective Dates Notes established patient visit 10/01/2024 established patient visit 09/10/2024 established patient visit 07/30/2024 established patient visit 06/30/2024 post ED/hospital visit 06/30/2024 established patient visit 06/26/2024 established patient visit 05/22/2024 established patient visit 04/14/2024 new patient welcome visit 03/17/2024 Encounters Encounter Performer Location Location Address Codes Date ([id number]) Home or Residence Visit Est Pt - Moderate Level, 40 mins Diagnosis: Type 2 diabetes mellitus with diabetic neuropathic arthropathy[ICD10: E11.610] Diagnosis: Major depressive disorder, recurrent, moderate[ICD10: F33.1] Diagnosis: Grief at loss of child[ICD10: F43.21] [facility] [place] [address] CPT-4: 60856 10/01/2024 ([id number]) (EST PT) MODERATE COMPLEXITY TELEHEALTH VISIT Diagnosis: Grief at loss of child[ICD10: F43.21] Diagnosis: Disappearance and of family member[ICD10: Z63.4] Diagnosis: Type 2 diabetes mellitus with other circulatory complication, with long-term current use of insulin[ICD10: E11.59] Diagnosis: Moderate episode of recurrent major depressive disorder[ICD10: F33.1] [facility] [address] [place] [address] CPT-4: 42827 09/10/2024 ([id number]) Home or Residence Visit Est Pt - Moderate Level, 40 mins Diagnosis: Type 2 diabetes mellitus with other circulatory complication, with long-term current use of insulin[ICD10: E11.59] Diagnosis: Moderate episode of recurrent major depressive disorder[ICD10: F33.1] Diagnosis: HTN (hypertension)[ICD10 : I10] Diagnosis: S/P foot surgery, right[ICD10: Z98.890] [facility] [address] [place], [place] [address] CPT-4: 86979 07/30/2024 ([id number]) (EST PT) LOW COMPLEXITY TELEHEALTH VISIT Diagnosis: Type 2 diabetes mellitus with other circulatory complication, with long-term current use of insulin[ICD10: E11.59] Diagnosis: S/P foot surgery, right[ICD10: Z98.890] [facility] [address] [place] [address] CPT-4: 77626 06/30/2024 ([id number]) Home or Residence Visit Est Pt - Moderate Level, 40 mins Diagnosis: Type 2 diabetes mellitus with other circulatory complication, with long-term current use of insulin[ICD10: E11.59] Diagnosis: Moderate episode of recurrent major depressive disorder[ICD10: F33.1] Diagnosis: S/P foot surgery, right[ICD10: Z98.890] [address] [address] CPT-4: 76028 06/26/2024 ([id number]) Home or Residence Visit Est Pt - Moderate Level, 40 mins Diagnosis: Major depressive disorder, recurrent, moderate[ICD10: F33.1] Diagnosis: Type 2 diabetes mellitus with diabetic neuropathic arthropathy[ICD10: E11.610] Diagnosis: Morbid (severe) obesity due to excess calories[ICD10: E66.01] Diagnosis: S/P foot surgery, right[ICD10: Z98.890] Diagnosis: HTN (hypertension)[ICD10 : I10] Diagnosis: (Z99.3-V46.3) Dependence on wheelchair[ICD10: Z99.3] Diagnosis: (Z91.81-V15.88) History of falling[ICD10: Z91.81] Diagnosis: (R53.1-780.79) Weakness[ICD10: R53.1] [facility] [address] [place] [address] CPT-4: 19004 05/22/2024 ([id number]) Home or Residence Visit Est Pt - Moderate Level, 40 mins Diagnosis: Acute non-recurrent maxillary sinusitis[ICD10: J01.00] Diagnosis: HTN (hypertension)[ICD10 : I10] Diagnosis: Leg pain[ICD10: M79.606] Diagnosis: Type 2 diabetes mellitus with other circulatory complication, with long-term current use of insulin[ICD10: E11.59] [facility] [address] [address] CPT-4: 76323 04/14/2024 ([id number]) Home or Residence Visit Est Pt - Moderate Level, 40 mins Diagnosis: Encounter for general adult medical examination with abnormal findings[ICD10: Z00.01] Diagnosis: Type 2 diabetes mellitus with other circulatory complication, with long-term current use of insulin[ICD10: E11.59] 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[ICD10: Z79.4] Diagnosis: Moderate episode of recurrent major depressive disorder[ICD10: F33.1] Diagnosis: HTN (hypertension)[ICD10 : I10] Diagnosis: S/P foot surgery, right[ICD10: Z98.890] Diagnosis: Charcot's joint, left ankle and foot[ICD10: M14.672] Diagnosis: Encounter for general adult medical examination without abnormal findings[ICD10: Z00.00] Diagnosis: (Z99.3-V46.3) Dependence on wheelchair[ICD10: Z99.3] Diagnosis: (R53.1-780.79) Weakness[ICD10: R53.1] Diagnosis: (R26.9-781.2) Unspecified abnormalities of gait and mobility[ICD10: R26.9] Diagnosis: (Z91.81-V15.88) History of falling[ICD10: Z91.81] [facility] [address] [place], [place] [address] CPT-4: 68484 03/17/2024 ([id number]) No answer/Patient not seen Diagnosis: Patient not seen[ICD10: UXZ.01] [facility] [address] [place], [place] [address] CPT-4: 54192 01/29/2024 Plan of Care Planned Activity Notes Codes Status Date Visit Plan: This is a pleasant [age] year old female that presents for follow up today. Since our last visit patient reports that she has not fallen. States that she is still dealing with the of her son. States that she is wating on toxucology reports for the cause of deaht for him. She has been in touch with the [facility] who are going to work with her on greif couseling and medications. SHe was told that they will be tapering her off her current medications and starting her on a new medication. They think they will use ZOloft but are going to disucss at her next meeting. She had her cage removed from her food in july. SHe is currently in a boot but is not allowed to weight bear at this time. She has been working on her diet. States that her blood sugars are running 150-200 currently. That is an improvement from before. She is still cheating on her diet. She has a sweet treat every once in a while. She has been eating more vegetables. E11.610-250.60 Type 2 diabetes mellitus with diabetic neuropathic arthropathy Continue Lantus F33.1-296.32 Major depressive disorder, recurrent, moderate Continue to follow with psych F43.21-309.0 Grief at loss of child Continue counseling. We did offer a second counseling service for the patient that works with chief medical technologist. She will contact them directly herself. We did talk about her diet and did some education on label reading. She was advised that this was our last visit with her. She will be able to contact her PCP with any future needs. She will continue all her medications as prescribed. She verbalized understanding and agreeable to plan of care. 10/01/2024 Appointment: Rita Reaves WPtel: [id number] 10/01/2024 Patient Education: Patient Medication Summary Completed 10/01/2024 Patient Education: Obesity Completed 10/01/2024 Visit Plan: This is a phone call only. Patient is in the [facility] and consents to treatment via telephone. This is a pleasant 58 year old female that is following up today. Patient reports that her son passes away a few days ago. She is having a hard time with this. States her PCP has recently given her a few xanex to use to deal with the panic attacks she has had. States that they are getting better. She has been very overwhelmed currently. She has not wanted to eat and has been very nauseated. Her PCP gave some zofran that she could use PRN. She has been monitoring her sugars and they are below 140. She was doing well with them before her sons . She has been trying to at least get a protein shake down a few times a day. She does not have any SI or HI. F43.21-309.0 Grief at loss of child Z63.4- Disappearance and of family member Refer to counseling per pt request. E11.59-250.70 Type 2 diabetes mellitus with other circulatory complication, with long-term current use of insulin Continue Lantus F33.1-296.32 Moderate episode of recurrent major depressive disorder Continue duloxetine. We did talk with the patient about any needs that she may have to please reach out. We will place a referral for mental health counseling service. We will follow up with patient after the for a recheck. Patient was encourage to eat something and monitor her blood sugars. She will continue all her medications as prescribed. Patient verbalized understanding and agreeable to plan of care. 09/10/2024 Appointment: Rita Reaves WPtel: [address] [facility] [address] [place] [address] [id number] ETV 09/10/2024 Patient Education: Patient Medication Summary Completed 09/10/2024 Patient Education: Patient Medication Summary Completed 08/09/2024 Care Plan: SBAR Pending Visit Plan: This is a pleasant 6 7 year old female that is following up today. Since our last visit patient reports that she has not fallen. Patient reports that She did nto rest well last night. States that her mother in law called after having an ultrasound that showed possible cancer for a sesond time. Then she found our a few of her family members got diagnosed with cnacer. States that it kept her up last night thinking about things. She was upset about things last night. States that since her surgery she has not had any pain. States that they will be removing the brace in a couple of months. She is hoping that it will be in the end of august. States that her diet has gotten better. SHe has been trying to cook more so that her does not cook things right. States that she is getting more vegtables in then before. States her last A1C was 9.3. Stats that her depression is better with the end of the surgery issues on her foot in sight. She has been trying to get up and do more and reports that it has helped. E11.59-250.70 Type 2 diabetes mellitus with other circulatory complication, with long-term current use of insulin Continue Lantus and ADA diet F33.1-296.32 Moderate episode of recurrent major depressive disorder Continue Lexapro I10-401.9 HTN (hypertension) Continue Losartan Z98.890-V45.89 S/P foot surgery, right Follow with orthopedic We did talk today about working on her diet. We will plan on checking her A1C at next visit in a month. She will focus on her diet and follow a strict ADA diet. She will continue all her medications as prescribed. She will contact us with any issues. Patient verbalized understanding and agreeable to plan of care. 07/30/2024 Appointment: Rita Reaves WPtel: [address] [facility] [employer] [place] [address] [id number] E348 07/30/2024 Patient Education: Patient Medication Summary Completed 07/30/2024 Patient Education: Obesity Completed 07/30/2024 Care Plan: Mammogram Screening (Bilateral) Ordered 07/30/2024 Visit Plan: This is a pleasant [age] year old female that presents for follow up. Patient is following up on her labs today and a recent surgery. Patient reports that she had three pins replaced on her foot on Saturday. She states they did call her in pain medications on Saturday after we spoke with them. She is now doing really well. States that with the pin change she is not having any issues with her foot. She states the pain is almost completely gone. She denies any drainage from the area. She has been watching her sugars and trying to keep them in a normal range E11.59-250.70 Type 2 diabetes mellitus with other circulatory complication, with long-term current use of insulin Continue to work on diet Z98.890-V45.89 S/P foot surgery, right Follow up with orthopedic Patient does not want any medication changes right now. She would like to improve her diet at this time. We will follow up with her in one month for a recheck. She will call us if needed before then. Patient will continue all her medications at this time. Patient verbalized understanding and agreeable to plan of care. 06/30/2024 Appointment: Rita Reaves WPtel: [address] [facility] [address] [id number] ETV 06/30/2024 Patient Education: Patient Medication Summary Completed 06/30/2024 Visit Plan: Has to have surgery on saturday to replace two pins that have fractured. Said that he could not remove the cage because it is not finished healing. States that MD hopes that if the pins are replaced it will take care of the pain. Stats taht she has started to eat more vegtables. She has been watching her carbohydrate intake. States she has cut out sweets. She has teally been trying to monitor her intake. She states that the pain in her foot is approximatly 8/10. States her depression has been doing better than ususal Getting the news of having surgery again bothers her. E11.59-250.70 Type 2 diabetes mellitus with other circulatory complication, with long-term current use of insulin COntinue ADA diabetic diet and lantus F33.1-296.32 Moderate episode of recurrent major depressive disorder Continue DUloxitine Z98.890-V45.89 S/P foot surgery, right Continue to follow with orthopedic We did contact orthopedic about patients pain levels. With the elevation in her blood pressure we worry about an unnessary ER trip. We let them know about her pain levels. We talked about them sending in medicaitons as we could not due to it not being and acute issue. The will send message to surgeon for evaluation. We did pull A1C on this patient today. We will contact her with the results. Patient was encouraged to follow her diet. We will see patient back at her next scheduled visit. Patient will continue all her medication's as prescribed. Patient will contact us with any issues prior to next visit. Patient verbalized understanding and agreeable to plan of care. 06/26/2024 Appointment: Rita Reaves WPtel: [address] [facility] 303 [id number] E348 06/26/2024 Patient Education: Patient Medication Summary Completed 06/26/2024 Patient Education: Obesity Completed 06/26/2024 Care Plan: Mammogram Screening (Bilateral) Ordered 06/26/2024 Visit Plan: This is a pleasant [age] year old female that presents for follow up. Since our last visit patient reports that she has not fallen. She is still following with orthopedic for surgery on her right foot. She states that the home health nurse thinks she has an infected pin. The home health nurse has sent a request in to the surgon to get a culture done. She reports that she has recently started back on her Ozempic again. She has not been watching her diet as she is unable to cook for herself due to the surgery. She can not stand for long periods of time due to her surgery. Her has been cooking and likes potatoes. She is trying to get up and do more but states that it is very difficult. She has been reserching different diets that she can start. She has not been checking her blood pressure. She asks if we can check her A1C. F33.1- Major depressive disorder, recurrent, moderate (continue current treatment plan) Continue lexapro E11.610- Type 2 diabetes mellitus with diabetic neuropathic arthropathy (continue current treatment plan) Continue Lantus and Ozempic Follow ADA diabetic diet E66.01- Morbid (severe) obesity due to excess calories (working on diet) Work on diet Z98.890-V45.89 S/P foot surgery, right I10-401.9 HTN (hypertension) triamterene Z99.3-V46.3 Dependence on wheelchair Z91.81-V15.88 History of falling R53.1-780.79 Weakness We did pull labs today. We will contact her with the results. Patient will continue all her medications as prescribed. While we were leaving her Orthopedic was calling and they will be sending in ABX for her foot. We will plan on seeing her back in one month for a recheck. Patient will call us sooner if needed. Patient verbalized understanding and agreeable to plan of care. 05/22/2024 Appointment: Rita Reaves WPtel: [address] [facility] [place] [address] [address]348 05/22/2024 Patient Education: Obesity Completed 05/22/2024 Patient Education: Patient Medication Summary Completed 05/22/2024 Care Plan: Microalbumin (Urine) Pending 05/22/2024 Visit Plan: J01.00-461.0 Acute non-recurrent maxillary sinusitis I10-401.9 HTN (hypertension) M79.606-729.5 Leg pain E11.59-250.70 Type 2 diabetes mellitus with other circulatory complication, with long-term current use of insulin This is a pleasant 58 year old female that presents for follow up. Since our last visit she went to see the orthopedic surgeon who evaluated her leg. She has had a repair done to her foot. She currently is still in her cage. She reports that he had to tighten up the screws and pins as the swelling has gone down in her leg. She is now having intermittent pains in her leg that sometimes are really deep in the bone. She is currently taking lyrica for the nerve pain but states it does not cover everything. Her surgon is working on pain control with her currently. She does state that she ended up in the hospital last week due to collapsing. She apparently had an acute kidney injury according to the hospital. They gave her fluids and changed some medications. She can not remember all the medications they changed. She does not have a list. She thinks they changed her insulin to humalog. She states that over the past week she has been struggling with her sinuses. She has had sinus pressure and drainage. She denies any fevers. We will send in some medications to help with sinus congestion and her cough. We did advise that the doxycycline should help to take care of her sinuses. We did talk for a while about her medication changes. She will have a list for us next time. Mainly it appears they decreased her blood pressure medications. We did stress the importance of following a good diet and monitoring her blood sugars very closely. We will see her back at her next scheduled appointment. Patient was encouraged to contact us sooner if needed. Patient will continue all her medications as prescribed. Patient verbalized understanding and agreeable to plan of care. 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 Patient is post op from a foot surgery. She has to have a complete reconstruction of her right foot. She reports that currently she has home health coming out to see her. They are doing dressing changes on the foot. he currently have her foot in a cage to keep it immobile She states she went to the ER a week ago for what she thought was a wound infection but it was just the ABX beads seeping out of one of the holes. She has a long history of diabetes. She reports that recently it has gotten better as her FBGC are staying under 180. She has had a couple of low glucose readings. She states she has been eating more frequently. She has been having more issues with getting out of the house and moving around so it has been affecting her moods. She does have depression and tries to make the best of each day. Her blood pressures have been doing good. She monitors them occasionally. She does have some mobility issues to her surgery. After talking with patient she is doing well with her levels of support from home health currently. She has DME including a hospital bed currently. We did discuss ADA diabetic diet that is heart healthy. We gave her a handout from ADA website for a 1800 calorie diet. We talked about her low blood sugar episodes. She will decrease her lantus at night by 5units to see if that helps with the low readings. We will follow up with her in four weeks for a recheck. Patient was encouraged to contact us sooner if needed. Patient verbalized understanding and agreeable to plan of care. 03/17/2024 Appointment: Rita Reaves WPtel: [address] [facility] [address] [place] [id number] [id number] 03/17/2024 Patient Education: Patient Medication Summary Completed 03/17/2024 Patient Education: Obesity Completed 03/17/2024 Appointment: Rita Reaves WPtel: [address] [id number] N348 01/29/2024 Patient Education: Patient Medication Summary Completed 01/29/2024 Referral: [facility] [place] WPtel: [address] [id number] Referral Order Faxed Referral: Pending Medical Records Information ORDER FAXED TO LINDSAY WILKINS WITH [address] Order Faxed Referral: Pending Medical Records Information ORDER FAXED TO BOOGIE BALDERRAMA MD [id number] Order Faxed Referral: Pending Medical Records Information ORDER FAXED TO ORDER FAXED TO [employer] Order Faxed Referral: [facility] Scheduling WPtel: [address] [id number] [facility] [address] [place] [address] T: [phone] [phone] Order Faxed Referral: [facility] Scheduling WPtel: [address] [id number] [place] Referral Order Faxed Instructions Comment Date A line line counseling servi radhika Continue to work on your diet. Follow up with your PCP for any further needs.. This is a pleasant 58 year old female that presents for follow up today. Since our last visit patient reports that she has not fallen. States that she is still dealing with the of her son. States that she is wating on toxucology reports for the cause of deaht for him. She has been in touch with the [facility] [employer] who are going to work with her on greif couseling and medications. SHe was told that they will be tapering her off her current medications and starting her on a new medication. They think they will use ZOloft but are going to disucss at her next meeting. She had her cage removed from her food in july. SHe is currently in a boot but is not allowed to weight bear at this time. She has been working on her diet. States that her blood sugars are running 150-200 currently. That is an improvement from before. She is still cheating on her diet. She has a sweet treat every once in a while. She has been eating more vegetables. E11.610-250.60 Type 2 diabetes mellitus with diabetic neuropathic arthropathy Continue Lantus F33.1-296.32 Major depressive disorder, recurrent, moderate Continue to follow with psych F43.21-309.0 Grief at loss of child Continue counseling. We did offer a second counseling service for the patient that works with chief medical technologist. She will contact them directly herself. We did talk about her diet and did some education on label reading. She was advised that this was our last visit with her. She will be able to contact her PCP with any future needs. She will continue all her medications as prescribed. She verbalized understanding and agreeable to plan of care. 10/01/2024 . This is a phone call only. Patient is in the [facility] and consents to treatment via telephone. This is a pleasant 58 year old female that is following up today. Patient reports that her son passes away a few days ago. She is having a hard time with this. States her PCP has recently given her a few xanex to use to deal with the panic attacks she has had. States that they are getting better. She has been very overwhelmed currently. She has not wanted to eat and has been very nauseated. Her PCP gave some zofran that she could use PRN. She has been monitoring her sugars and they are below 140. She was doing well with them before her sons . She has been trying to at least get a protein shake down a few times a day. She does not have any SI or HI. F43.21-309.0 Grief at loss of child Z63.4- Disappearance and of family member Refer to counseling per pt request. E11.59-250.70 Type 2 diabetes mellitus with other circulatory complication, with long-term current use of insulin Continue Lantus F33.1-296.32 Moderate episode of recurrent major depressive disorder Continue duloxetine. We did talk with the patient about any needs that she may have to please reach out. We will place a referral for mental health counseling service. We will follow up with patient after the for a recheck. Patient was encourage to eat something and monitor her blood sugars. She will continue all her medications as prescribed. Patient verbalized understanding and agreeable to plan of care. 09/10/2024 Please continue to work on y our diet.. This is a pleasant 58 year old female that is following up today. Since our last visit patient reports that she has not fallen. Patient reports that She did nto rest well last night. States that her mother in law called after having an ultrasound that showed possible cancer for a sesond time. Then she found our a few of her family members got diagnosed with cnacer. States that it kept her up last night thinking about things. She was upset about things last night. States that since her surgery she has not had any pain. States that they will be removing the brace in a couple of months. She is hoping that it will be in the end of august. States that her diet has gotten better. SHe has been trying to cook more so that her does not cook things right. States that she is getting more vegtables in then before. States her last A1C was 9.3. Stats that her depression is better with the end of the surgery issues on her foot in sight. She has been trying to get up and do more and reports that it has helped. E11.59-250.70 Type 2 diabetes mellitus with other circulatory complication, with long-term current use of insulin Continue Lantus and ADA diet F33.1-296.32 Moderate episode of recurrent major depressive disorder Continue Lexapro I10-401.9 HTN (hypertension) Continue Losartan Z98.890-V45.89 S/P foot surgery, right Follow with orthopedic We did talk today about working on her diet. We will plan on checking her A1C at next visit in a month. She will focus on her diet and follow a strict ADA diet. She will continue all her medications as prescribed. She will contact us with any issues. Patient verbalized understanding and agreeable to plan of care. 07/30/2024 . This is a pleasant 58 year old female that presents for follow up. Patient is following up on her labs today and a recent surgery. Patient reports that she had three pins replaced on her foot on Saturday. She states they did call her in pain medications on Saturday after we spoke with them. She is now doing really well. States that with the pin change she is not having any issues with her foot. She states the pain is almost completely gone. She denies any drainage from the area. She has been watching her sugars and trying to keep them in a normal range E11.59-250.70 Type 2 diabetes mellitus with other circulatory complication, with long-term current use of insulin Continue to work on diet Z98.890-V45.89 S/P foot surgery, right Follow up with orthopedic Patient does not want any medication changes right now. She would like to improve her diet at this time. We will follow up with her in one month for a recheck. She will call us if needed before then. Patient will continue all her medications at this time. Patient verbalized understanding and agreeable to plan of care. 06/30/2024 Continue your Diabetic diet. We will call you with the results of the labs. Has to have surgery on saturday to replace two pins that have fractured. Said that he could not remove the cage because it is not finished healing. States that MD hopes that if the pins are replaced it will take care of the pain. Stats taht she has started to eat more vegtables. She has been watching her carbohydrate intake. States she has cut out sweets. She has teally been trying to monitor her intake. She states that the pain in her foot is approximatly 8/10. States her depression has been doing better than ususal Getting the news of having surgery again bothers her. E11.59-250.70 Type 2 diabetes mellitus with other circulatory complication, with long-term current use of insulin COntinue ADA diabetic diet and lantus F33.1-296.32 Moderate episode of recurrent major depressive disorder Continue DUloxitine Z98.890-V45.89 S/P foot surgery, right Continue to follow with orthopedic We did contact orthopedic about patients pain levels. With the elevation in her blood pressure we worry about an unnessary ER trip. We let them know about her pain levels. We talked about them sending in medicaitons as we could not due to it not being and acute issue. The will send message to surgeon for evaluation. We did pull A1C on this patient today. We will contact her with the results. Patient was encouraged to follow her diet. We will see patient back at her next scheduled visit. Patient will continue all her medication's as prescribed. Patient will contact us with any issues prior to next visit. Patient verbalized understanding and agreeable to plan of care. 06/26/2024 Follow the ADA diabetic we l eft for you.. This is a pleasant 58 year old female that presents for follow up. Since our last visit patient reports that she has not fallen. She is still following with orthopedic for surgery on her right foot. She states that the home health nurse thinks she has an infected pin. The home health nurse has sent a request in to the surgon to get a culture done. She reports that she has recently started back on her Ozempic again. She has not been watching her diet as she is unable to cook for herself due to the surgery. She can not stand for long periods of time due to her surgery. Her has been cooking and likes potatoes. She is trying to get up and do more but states that it is very difficult. She has been reserching different diets that she can start. She has not been checking her blood pressure. She asks if we can check her A1C. F33.1- Major depressive disorder, recurrent, moderate (continue current treatment plan) Continue lexapro E11.610- Type 2 diabetes mellitus with diabetic neuropathic arthropathy (continue current treatment plan) Continue Lantus and Ozempic Follow ADA diabetic diet E66.01- Morbid (severe) obesity due to excess calories (working on diet) Work on diet Z98.890-V45.89 S/P foot surgery, right I10-401.9 HTN (hypertension) triamterene Z99.3-V46.3 Dependence on wheelchair Z91.81-V15.88 History of falling R53.1-780.79 Weakness We did pull labs today. We will contact her with the results. Patient will continue all her medications as prescribed. While we were leaving her Orthopedic was calling and they will be sending in ABX for her foot. We will plan on seeing her back in one month for a recheck. Patient will call us sooner if needed. Patient verbalized understanding and agreeable to plan of care. 05/22/2024 . J01.00-461.0 Acute non-rec urrent maxillary sinusitis I10-401.9 HTN (hypertension) M79.606-729.5 Leg pain E11.59-250.70 Type 2 diabetes mellitus with other circulatory complication, with long-term current use of insulin This is a pleasant 58 year old female that presents for follow up. Since our last visit she went to see the orthopedic surgeon who evaluated her leg. She has had a repair done to her foot. She currently is still in her cage. She reports that he had to tighten up the screws and pins as the swelling has gone down in her leg. She is now having intermittent pains in her leg that sometimes are really deep in the bone. She is currently taking lyrica for the nerve pain but states it does not cover everything. Her surgon is working on pain control with her currently. She does state that she ended up in the hospital last week due to collapsing. She apparently had an acute kidney injury according to the hospital. They gave her fluids and changed some medications. She can not remember all the medications they changed. She does not have a list. She thinks they changed her insulin to humalog. She states that over the past week she has been struggling with her sinuses. She has had sinus pressure and drainage. She denies any fevers. We will send in some medications to help with sinus congestion and her cough. We did advise that the doxycycline should help to take care of her sinuses. We did talk for a while about her medication changes. She will have a list for us next time. Mainly it appears they decreased her blood pressure medications. We did stress the importance of following a good diet and monitoring her blood sugars very closely. We will see her back at her next scheduled appointment. Patient was encouraged to contact us sooner if needed. Patient will continue all her medications as prescribed. Patient verbalized understanding and agreeable to plan of care. 04/14/2024 . Z00.01-V70.0 Encounter for general adult medical examination with abnormal findings E11.59-250.70 Type 2 diabetes mellitus with other circulatory complication, with long-term current use of insulin Z79.4- snf (current) use of insulin F33.1-296.32 Moderate episode of recurrent major depressive disorder I10-401.9 HTN (hypertension) Z98.890-V45.89 S/P foot surgery, right M14.672-094.0 Charcot's joint, left ankle and foot Z99.3-V46.3 Dependence on wheelchair R53.1-780.79 Weakness R26.9-781.2 Unspecified abnormalities of gait and mobility [id number] History of falling This is a pleasant 58 year old female that presents to for a welcome visit. Patient is post op from a foot surgery. She has to have a complete reconstruction of her right foot. She reports that currently she has home health coming out to see her. They are doing dressing changes on the foot. he currently have her foot in a cage to keep it immobile She states she went to the ER a week ago for what she thought was a wound infection but it was just the ABX beads seeping out of one of the holes. She has a long history of diabetes. She reports that recently it has gotten better as her FBGC are staying under 180. She has had a couple of low glucose readings. She states she has been eating more frequently. She has been having more issues with getting out of the house and moving around so it has been affecting her moods. She does have depression and tries to make the best of each day. Her blood pressures have been doing good. She monitors them occasionally. She does have some mobility issues to her surgery. After talking with patient she is doing well with her levels of support from home health currently. She has DME including a hospital bed currently. We did discuss ADA diabetic diet that is heart healthy. We gave her a handout from ADA website for a 1800 calorie diet. We talked about her low blood sugar episodes. She will decrease her lantus at night by 5units to see if that helps with the low readings. We will follow up with her in four weeks for a recheck. Patient was encouraged to contact us sooner if needed. Patient verbalized understanding and agreeable to plan of care. 03/17/2024 Medical Equipment No Medical Equipment data Advance Directives No Advance Directive data
[2025-02-07 19:20] LABS: Microscopic, Urine URINE MICROSCOPIC (MICROSCOPIC)
[2025-02-07 19:27] LABS: Bilirubin,Urine Negative (Negative); Color,Urine YELLOW (Yellow); Glucose,Urine (UA) 2+ (Negative); Ketones,Urine Negative (Negative); Leukocyte Esterase,Urine Negative (Negative); PH,Urine 6.0 (5.0-8.5); Protein,Urine Negative (Negative); Specific Gravity, Urine <= 1.005 (1.005-1.030); Urobilinogen,Urine 0.2 EU/dl (0.2)
[2025-02-07] MEDS: SODIUM CHLORIDE 0.9% 10ML SYR (RAD ONLY) 10 ML IV (19:36)
[2025-02-07] MEDS: 0.9 % SODIUM CHLORIDE 50 ML VIAL 40 ML IV (19:36)
[2025-02-07] MEDS: IOPAMIDOL-370 (76%);100ML BOTTLE 155 ML IV (19:36)
[2025-02-07 20:14] LABS: Squamous Epithelial Cell,Urine Occasional #/hpf (0-5)
[2025-02-07 21:07] VITALS: BP 141/78; PULSE 77; RESP 18; TEMP 36.6; O2SAT 96
[2025-02-07] MEDS: MECLIZINE 25MG TABLET 25 MG PO (21:13)
== END 2025-02-07 21:20 | disposition home or self-care (01) ==
PROVIDERS: Emergency Provider Student in an Organized Health Care Education/Training Program; PCP Nurse Practitioner Family
DX: R10.30 Lower abdominal pain, unspecified (principal); R42 Dizziness and giddiness; R19.7 Diarrhea, unspecified; I12.9 Hypertensive chronic kidney disease with stage 1 through stage 4 chronic kidney disease, or unspecified chronic kidney disease; E11.40 Type 2 diabetes mellitus with diabetic neuropathy, unspecified; N18.30 Chronic kidney disease, stage 3 unspecified; E78.5 Hyperlipidemia, unspecified; Z79.4 Long term (current) use of insulin
CPT/HCPCS: 70450; 70496; 70498; 71045; 74177; 80053; 81001; 83605; 83735; 83880; 84484; 85025; 85610; 85730; 93005; 96360; 99284; 99285; J7120; Q9967